=== PATIENT | female | born 1935 | race Caucasian/White ===

== ENCOUNTER 2024-08-17 08:47 | Emergency (ER) | payer MEDICARE, MEDICAID, SELFPAY ==
[2024-08-17 08:51] VITALS: BP 183/72; PULSE 64; TEMP 36.7; O2SAT 99; BMI 25.7
[2024-08-17] MEDS: HYDROCODONE/ACET 5-325 MG TABLET 1 TAB PO (09:08)
[2024-08-17] MEDS: CYCLOBENZAPRINE HCL 10 MG TABLET PO (09:09)
--- NOTE | 2024-08-17 10:46 | ED.BACK1 ---
HPI HPI - Back Pain/Injury General Chief Complaint: Back Pain/Injury Stated Complaint: BACK PAIN Time Seen by Provider: 08/17/24 08:49 Source: patient and EMR Mode of arrival: ambulance History of Present Illness HPI Narrative: Patient presents to ED complaining of low back pain. She complains of left lumbar pain which is a chronic issue for her but recently has flared up. She has been to pain management as well as a back surgeon. She said she was doing okay but a couple of nights ago he tried to turn over in bed and she felt immediate pain. Patient states the pain is going into the left leg. No numbness or weakness. No nausea vomiting no fevers. She denies any loss of bowel or bladder habits. She states she had tramadol at the care facility but it made her nauseated so she could not take it. She did try some Aleve but it was not helping. She has been icing and using heat with little relief. She is alert and oriented and was able to get herself in and out of the bed. Related Data Home Medications ?Medication ?Instructions ?Recorded ?Confirmed Lactobacillus acidophilus 10 100 mmu cells PO DAILY 08/17/24 08/17/24 billion cell capsule (Revitaflor) ascorbic acid (vitamin C) 1,000 mg 1,000 mg PO DAILY 08/17/24 08/17/24 tablet,extended release (C Complex) calcium 500 mg tablet 500 mg PO DAILY 08/17/24 08/17/24 calcium 600 mg (as 1 tab PO DAILY 08/17/24 08/17/24 carbonate)-vitamin D3 5 mcg (200 unit) tablet carvedilol 12.5 mg tablet (Coreg) 12.5 mg PO BID 08/17/24 08/17/24 cholecalciferol (vitamin D3) 25 1,000 unit PO DAILY 08/17/24 08/17/24 mcg (1,000 unit) capsule (Vitamin D3) hydrochlorothiazide 25 mg tablet 25 mg PO DAILY 08/17/24 08/17/24 hydroxychloroquine 200 mg tablet 200 mg PO DAILY 08/17/24 08/17/24 levothyroxine 75 mcg tablet 75 mcg PO DAILY 08/17/24 08/17/24 (Euthyrox) linaclotide 72 mcg capsule 72 mcg PO DAILY 08/17/24 08/17/24 (Linzess) polyethylene glycol 3350 17 gram 17 g PO DAILY 08/17/24 08/17/24 oral powder packet (ClearLax) potassium 20 mg chewable tablet 20 mg PO DAILY 08/17/24 08/17/24 prednisone 20 mg tablet 10 mg PO DAILY 08/17/24 08/17/24 sennosides 8.6 mg tablet (senna) 8.6 mg PO DAILY 08/17/24 08/17/24 sertraline 25 mg tablet (Zoloft) 25 mg PO DAILY 08/17/24 08/17/24 tizanidine 4 mg tablet 4 mg PO Q8H PRN muscle spasticity 08/17/24 08/17/24 Previous Rx's ?Medication ?Instructions ?Recorded cyclobenzaprine 10 mg tablet 10 mg PO TID PRN back pain #20 tabs 08/17/24 hydrocodone 5 mg-acetaminophen 325 1 tab PO Q6H PRN pain #14 tabs 08/17/24 mg tablet Allergies Allergy/AdvReac Type Severity Reaction Status Date / Time bupropion (From Wellbutrin) Allergy Hallucinati Verified 08/17/24 09:08 ng Penicillins Allergy Hives Verified 08/17/24 09:08 pentazocine (From Talwin) Allergy Unknown Verified 08/17/24 09:08 Opioid HPI Opioid Management Most Recent Opioid Data: Last ED Pain Assessment 08/17/24 09:55 Review of Systems ROS Status of ROS 10 or more systems reviewed and unremarkable except as noted in history and below [facility] Medical History (Updated 08/17/24 @ 10:28 by Monica Recio DO) Hypokalemia ?E87.6 - Hypokalemia (ICD-10) Other abnormalities of gait and mobility ?R26.89 - Other abnormalities of gait and mobility (ICD-10) Muscle spasm of back ?M62.830 - Muscle spasm of back (ICD-10) Hyperlipemia ?E78.5 - Hyperlipidemia, unspecified (ICD-10) Nutritional deficiency ?E63.9 - Nutritional deficiency, unspecified (ICD-10) Major depression ?F32.9 - Major depressive disorder, single episode, unspecified (ICD-10) Hypothyroid ?E03.9 - Hypothyroidism, unspecified (ICD-10) Constipation ?K59.00 - Constipation, unspecified (ICD-10) Chronic kidney disease ?N18.9 - Chronic kidney disease, unspecified (ICD-10) 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 Respiratory: Lungs CTA, respirations non labored. Extremities: no deformity, no trauma. Neurological: oriented x 4, LOC appropriate for age. Tenderness to palpation in the left lumbar sacral area. Normal distal pulses and sensation normal motor Constitutional Vital Signs, click to edit/add: Last Vital Signs Temp 98.1 F 08/17/24 08:51 Pulse 64 08/17/24 08:51 Resp 18 08/17/24 08:51 BP 183/72 H 08/17/24 08:51 Pulse Ox 99 08/17/24 08:51 O2 Del Method Room Air 08/17/24 08:51 Course Vital Signs Vital signs: Vital Signs Temperature 98.1 F 08/17/24 08:51 Pulse Rate 64 08/17/24 08:51 Respiratory Rate 18 08/17/24 08:51 Blood Pressure 183/72 H 08/17/24 08:51 Pulse Oximetry 99 08/17/24 08:51 Oxygen Delivery Method Room Air 08/17/24 08:51 Temperature 98.1 F 08/17/24 08:51 Pulse Rate 64 08/17/24 08:51 Respiratory Rate 18 08/17/24 08:51 Blood Pressure 183/72 H 08/17/24 08:51 Pulse Oximetry 99 08/17/24 08:51 Oxygen Delivery Method Room Air 08/17/24 08:51 MDM - Back Pain/Injury MDM Narrative Medical decision making narrative: Patient was feeling better after the [place] and Flexeril. She was able to ambulate with her walker. Patient will be sent home and was instructed to follow-up with her pain management as well as back doctor. Return to ED if worsening symptoms otherwise follow-up as directed. Patient is comfortable care plan for home. Prescription for [place] and Flexeril were sent in for her Differential Diagnosis Differential diagnosis: Likely lumbar radiculopathy, sciatica and strain of lumbar region Discharge Plan Discharge Chief Complaint: Back Pain/Injury Clinical Impression: Strain of lumbar region Patient Disposition: Home, Self-Care Time of Disposition Decision: 10:28 Condition: Good Mode of Transportation: Private Vehicle Prescriptions / Home Meds: New cyclobenzaprine 10 mg tablet 10 mg PO TID PRN (Reason: back pain) Qty: 20 0RF hydrocodone-acetaminophen 5-325 mg tablet 1 tab PO Q6H PRN (Reason: pain) Qty: 14 0RF No Action prednisone 20 mg tablet 10 mg PO DAILY Revitaflor 10 billion cell capsule 100 mmu cells PO DAILY sennosides [senna] 8.6 mg tablet 8.6 mg PO DAILY tizanidine 4 mg tablet 4 mg PO Q8H PRN (Reason: muscle spasticity) C Complex 1,000 mg tablet extended release 1,000 mg PO DAILY cholecalciferol (vitamin D3) [Vitamin D3] 25 mcg (1,000 unit) capsule 1,000 unit PO DAILY sertraline [Zoloft] 25 mg tablet 25 mg PO DAILY calcium carbonate-vitamin D3 600 mg-5 mcg (200 unit) tablet 1 tab PO DAILY carvedilol [Coreg] 12.5 mg tablet 12.5 mg PO BID Rx Instructions: must administer with a meal/food hydrochlorothiazide 25 mg tablet 25 mg PO DAILY hydroxychloroquine 200 mg tablet 200 mg PO DAILY levothyroxine [Euthyrox] 75 mcg tablet 75 mcg PO DAILY Linzess 72 mcg capsule 72 mcg PO DAILY polyethylene glycol 3350 [ClearLax] 17 gram powder in packet 17 g PO DAILY calcium 500 mg tablet 500 mg PO DAILY potassium 20 mg tablet,chewable 20 mg PO DAILY Print Language: [place] Instructions: Back Pain (ED) Referrals: Aleksandra Fontaine NP [Primary Care Provider] - 1 week
== END 2024-08-17 11:09 | disposition home or self-care (01) ==
PROVIDERS: Emergency Provider Emergency Medicine; PCP Nurse Practitioner Family
DX: S39.012A Strain of muscle, fascia and tendon of lower back, initial encounter (principal); X58.XXXA Exposure to other specified factors, initial encounter
CPT/HCPCS: 99282

== ENCOUNTER 2024-08-21 04:47 | Emergency (ER) | payer MEDICARE, MEDICAID, SELFPAY ==
[2024-08-21] VITALS (39 sets, daily range): BP systolic 82–129; BP diastolic 48–67; PULSE 75–90; TEMP 37.1; O2SAT 83–98
--- NOTE | 2024-08-21 04:48 | CT_ITS ---
[address] [address] Patient Name: DERICK ALCANTARA MRN: [id number] date: 1935 Sex: F Assigned Patient Location: ER Current Patient Location: ER Accession/Order Number: [id number] Exam Date: 08/21/2024 05:35 Report Date: 08/21/2024 06:01 At the request of: KWESI CALI Procedure: CT abdomen pelvis w con EXAMINATION: CT abdomen pelvis w con HISTORY: abdominal pain COMPARISON: No relevant comparison available. TECHNIQUE: CT images were created with IV contrast. Axial, Coronal, and Sagittal images. Dose reduction techniques were achieved by using automated exposure control and/or adjustment of mA and/or kV according to patient size and/or use of iterative reconstruction technique. FINDINGS: LUNG BASES: Mild dependent atelectasis. LIVER: No enlargement, atrophy, abnormal density, or significant focal lesion. BILIARY: Surgical clips from cholecystectomy PANCREAS: Diffuse fatty atrophy SPLEEN: No enlargement or focal lesion. ADRENALS: No mass or enlargement. KIDNEYS: No mass, obstruction, or calcification. BOWEL/MESENTERY: Small amount of free scattered intraperitoneal air suggesting a bowel perforation. Moderate to extensive colonic diverticulosis without definite evidence of acute diverticulitis. There is wall thickening of multiple small bowel loops with hyperemia. Small amount of free pelvic fluid AORTA/VASCULAR: No aortic aneurysm. Mild calcific atherosclerosis RETROPERITONEUM: No mass or adenopathy. LYMPH NODES: No adenopathy. URINARY BLADDER: No visible focal wall thickening, lesion, or calculus. PELVIC ORGANS: Hysterectomy ABDOMINAL WALL: No mass or hernia. BONES: No bony lesion or fracture. Lumbosacral fusion with moderate diffuse degenerative changes OTHER: Negative. CT/CT abdomen pelvis w con IMPRESSION: Small amount of free intraperitoneal air. Consider a bowel perforation. The location is unknown Inflammatory changes consistent with small bowel enteritis Electronically authenticated by: ECHO PATEL Date: 08/21/2024 06:01
--- NOTE | 2024-08-21 04:49 | ECG_ITS ---
[facility] Test Date: 2024-08-21 Pat Name: DERICK ALCANTARA Department: Room: - Gender: Female [employer]: : 1935 Requested By: Order Number: [id number] Reading MD: DERIK BOWLING Measurements Intervals [place] Rate: 84 P: 58 AL: 156 QRS: -51 QRSD: 98 T: 69 QT: 380 QTc: 421 Interpretive Statements 1100 Sinus rhythm 2630 Left anterior fascicular block 9150 abnormal ECG No previous ECG available for comparison Electronically Signed On 08-21-2024 8:09:05 EST by DERIK BOWLING
--- OUTSIDE RECORDS SUMMARY | 2024-08-21 04:53 | XMS_ITS | CCD ---
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 Name Role Phone SAM MACHADO Attending Unavailable FAN ELLIOTT Primary Care Unavailable Fan Elliott Unavailable Unavailable Unavailable Peterson Mejia Unavailable Abhijeet Guillen Unavailable Peewee Mondragon Unavailable DO Fan Elliott Primary Care Provider AKHIL Mcgraw Emergency Provider Al MD Jony Irizarry Admit Provider MD Peterson Mejia Other Provider RADHA Jane Other Provider MD Peewee Mondragon Other Provider MD Yoav Hsu Attending Provider SHEY Lee Attending Provider AKHIL Mcgraw Referring Provider Cece Anguiano II Unavailable DO Fan Elliott Primary Care Provider MD Cece Anguiano II Attending Provider DO Fan Elliott Primary Care Provider SHEY Lee Attending Provider AKHIL Mcgraw Referring Provider [phone] Sam Machado Referring Delia vailable Fan Elliott Primary Care Unavailable Mandeep Dr. Sam Hammonds Attending Delia vailable Machado, Dr. Sam Hammonds Referring Delia vailable Fan Elliott Primary Care Unavailable Mandeep, Dr. Sam Hammonds Attending Delia MD Sam Soares Attending Provider SHEY Lee Attending Provider AKHIL Mcgraw Referring Provider SHEY Lee Attending Provider AKHIL Mcgraw Referring Provider Sakshi Ojeda Unavailable DO Fan Elliott Primary Care Provider MD Cece Anguiano II Attending Provider MD Sam Machado Attending Provider SHEY Lee Attending Provider AKHIL Mcgraw Referring Provider DO Fan Elliott Attending Provider DO Fan Elliott Primary Care Provider AKHIL Whitaker Emergency Provider [phone] DO Fan Elliott Attending Provider DO Fan Elliott Primary Care Provider DO Peewee Jackson Emergency Provider UnaiaSAM Ferguson Attending Unavailable FAN ELLIOTT Primary Care Unavailable DO Fan Elliott Primary Care Provider DO Peewee Jackson Emergency Provider Unavai DO Fan Malhotra Attending Provider [phone] MD Sakshi Ojeda Referring Provider [phone] GIL Hill Primary Care Provider MD Sakshi Ojeda Attending Provider [phone] Fan Elliott DO Unavailable Fan Naidu DO Unavailable [phone] Karen Wellington Primary Care Provider Sakshi Ojeda MD Attending Provider Rusty, Sakshi Attending Unavailable Karen Hill Primary Care Unavailable Rusty, Sakshi Admitting Unavailable Karen Hill Primary Care Unavailable Rusty, Sakshi Admitting Unavailable Rusty, Sakshi Attending Unavailable GRANT JANE Attending Unavailable PEEWEE GRESHAM Attending Unavailable PEEWEE GRESHAM Referring Unavailable JR. ALYCIA, MARIE Hong Attending UnavailSILVESTRE Cotto Attending Unavailable FAN NAIDU Attending Unavailable FAN ELLIOTT Referring Unavailable YARELIS ECHEVERRIA Attending Unavailable JR. ALYCIA, MARIE Hong Attending UnavailIFEOMA Sebastian Attending Unavailable PEEWEE GRESHAM Attending Unavailable PEEWEE GRESHAM Attending Unavailable Fan Elliott DO Primary Care Provider [phone] PEEWEE GRESHAM Attending Unavailable PEEWEE GRESHAM Referring Unavailable FAN ELLIOTT Primary Care Unavailable YARELIS RODRIGUEZ Attending Unavailable KAREN HILL Primary Care Unavailable CHARLOTTE BARNEY Attending Unavailable CHARLOTTE BARNEY Referring Unavailable KAREN HILL Primary Care Unavailable MARINE MARY Attending Unavailable KAREN HILL Referring Unavailable KAREN HILL Primary Care Unavailable MARINE MARY Attending Unavailable MARINE MARY Referring Unavailable KAREN HILL Primary Care Unavailable FAN ELLIOTT Referring Unavailable FAN ELLIOTT Primary Care Unavailable Allergies Allergy Classification Reported Allergen(s) Allergy Type Date of Onset Reaction(s) Facility (20 sources) Penicillins; Translations: [Penicillins] Allergy to drug (finding) 03-20-20 [facility] Comment on above: Tolerating meropenem therapy during 01-19-22 admission (3 sources) Pentazocine; Translations: [Talwin NX TABS] Drug Allergy -[facility] 250 DO Work Phone: (7 sources) Acetaminophen / HYDROcodone Drug Allergy Unknown [facility] [employer] Other (7 sources) Acetaminophen / oxyCODONE Drug Allergy Unknown [facility] [employer] Other (9 sources) Penicillin V Drug Allergy 11-20-20 23 Unknown, Unknown Reaction [facility] (7 sources) Penicillins (Antibiotic) Propensity to adverse reactions Unknown [facility] [employer] Other (9 sources) Pentazocine Drug Allergy Unknown [employer] Other (20 sources) buPROPion; Translations: [bupropion] Drug Allergy 03-20-20 22 Hallucinating [facility] (20 sources) Pentazocine; Translations: [pentazocine] Drug Allergy 03-20-20 Unknown Reaction [facility] (1 source) PENTAZOCINE-NALO XONE; Translations: [PENTAZOCINE-NAL OXONE] Propensity to adverse reactions to drug (disorder) 07-06-20 [facility] 3 Repository (3 sources) Acetaminophen; Translations: [acetaminophen] Drug Allergy 07-20-20 23 Unknown Reaction [facility] (3 sources) HYDROcodone; Translations: [hydrocodone] Drug Allergy 07-20-20 Unknown Reaction [facility] (3 sources) oxyCODONE; Translations: [oxycodone] Drug Allergy 07-20-20 23 Unknown Reaction [facility] (12 sources) Penicillins Drug Allergy 01-01-20 23 [facility] (12 sources) Sulfacetamide Drug Allergy 01-01-20 23 [facility] (12 sources) Pentazocine-Nalo xone Hcl Drug Allergy 07-06-20 23 Unknown [facility] Work Phone: (1 source) Penicillin Drug Allergy 07-14-20 [facility] Repository (1 source) Penicillins Drug allergy (disorder) 07-14-20 [facility] Repository Medications Current Medications Medication Drug Class(es) Dates Sig (Normalized) Sig (Original) [id number] 200 actuat albuterol 0.09 mg/actuat metered dose inhaler (12 sources) beta2-Adrenergic Agonist Start: 10-02-2022 albuterol HFA 90 mcg/act inhaler Inhale 1 puff if needed. 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 90 tablet 1 06/10/2023 Active Start: 09-07-2017 End: 06-18-2023 take 1 tablet by mouth once daily Ascorbic Acid (Vitamin C) (Vitamin C) 500 mg Tablet Discontinued 500 MG PO daily September 07, 2017 12:00am June 18, 2023 8:11pm bacillus coagulans [id number] unt / inulin 250 mg oral capsule (11 sources) Start: 06-10-2023 take 1 capsule by mouth in the morning Bacillus Coagulans-Inulin (Probiotic) 1-250 BILLION-MG capsule Indications: Diverticulosis of intestine, part unspecified, without perforation or abscess without bleeding Take 1 capsule by mouth in the morning. 90 capsule 1 06/10/2023 Active Calcium 1200 1122-1648 MG-UNIT (2 sources) take 1 tablet by mouth once daily Calcium 1200 2883-1510 MG-UNIT 1 tablet Orally Once a day Active calcium ascorbate 500 mg oral tablet (1 source) Start: 07-14-2024 take 1 tablet by mouth once daily Ascorbate Calcium (Vitamin C) 500 mg tablet Active 500 MG PO Daily July 14, 2024 12:00am calcium carbonate 1250 mg oral tablet (20 sources) Start: 07-14-2024 take 1 tablet by mouth once daily Calcium Carbonate (Oyster Shell Calcium) 500 mg calcium (1,250 mg) tablet Active 500 MG PO Daily July 14, 2024 12:00am Start: 06-10-2023 take 1 tablet by liz th once daily calcium carbonate (Os-Clyde) 1250 (500 Ca) MG tablet Indications: Other disorders of bone development and growth, multiple sites Take 1 tablet (1,250 mg) by mouth 1 (one) time each day at the same time. 90 tablet 1 06/10/2023 Active Start: 09-07-2017 Calcium Carbon ate (Calcium 500) 500 mg calcium (1,250 mg) Tablet Active 1200 MG PO daily September 07, 2017 12:00am Start: 09-07-2017 take 1 tablet by liz th once daily Calcium Carbonate (Calcium 500) 500 mg calcium (1,250 mg) Tablet Active 500 MG PO daily September 07, 2017 12:00am carvedilol 6.25 mg oral tablet (20 sources) alpha-Adrenergic Cheryl, beta-Adrenergic Cheryl Start: 07-14-2024 take 2 tablets by mouth twice daily Carvedilol 6.25 mg tablet Active 12.5 MG PO Twice daily July 14, 2024 11:19am Start: 06-18-2021 End: 07-14-2024 take 1 tablet by mouth in the morning, then take 2 tablets by mouth once daily in the evening carvedilol (Coreg) 6.25 MG tablet Indications: Atherosclerosis of aorta (CMS/HCC) , Primary hypertension (CMS/HCC) 1 po in am and 2 po in the evening daily 270 tablet 3 10/28/2023 Active Start: 06-18-2021 take 1 tablet by liz th in the morning, then take 2 tablets by mouth in the evening Carvedilol 6.25 MG Oral Tablet Take one tablet in the morning and 2 tablets in the evening Quantity: 0 Refills: 0 Ordered: 18-Jun-2021 DO Start : 18-Jun-2021 Active Start: 06-12-2021 Carvedilol 12. 5 MG Oral Tablet Quantity: 14 Refills: 0 Ordered: 12-Jun-2021 DO Start : 12-Jun-2021 Complete Start: 09-07-2017 End: 09-30-2018 take 2 tablets by mouth once daily at bedtime Carvedilol 6.25 mg Tablet Discontinued 12.5 MG PO Daily at bedtime September 07, 2017 12:00am September 30, 2018 3:03pm Start: 09-07-2017 End: 01-17-2022 take 1 tablet by mouth three times daily Carvedilol 6.25 mg Tablet Discontinued 6.25 MG PO Three times daily September 07, 2017 12:00am January 17, 2022 10:41pm Start: 09-07-2017 End: 09-30-2018 take 12.5 mg by mouth once daily at bedtime Carvedilol Discontinued 12.5 MG PO Daily at bedtime September 07, 2017 12:00am September 30, 2018 3:03pm Carvedilol Activ e cholecalciferol 0.025 mg oral tablet (20 sources) Vitamin D Start: 06-10-2023 take 1 tablet by mouth in the morning cholecalciferol (Vitamin D-3) 100 MCG (4000 UT) tablet Indications: Osteoporosis Take 1 tablet (100 mcg) by mouth in the morning. 90 tablet 1 06/10/2023 Active Start: 09-07-2017 take 1 tablet by liz th once daily in the morning cholecalciferol (Vitamin D3) 25 MCG (1000 UT) tablet Indications: Vitamin D deficiency TAKE 1 TABLET BY MOUTH EVERY MORNING 30 tablet 4 07/10/2024 Active take 1 tablet by liz th once daily Cholecalciferol 25 MCG (1000 UT) 1 tablet Orally Once a day Active take 1 capsule by mo uth once daily Cholecalciferol 25 MCG (1000 UT) 1 capsule Orally Once a day Active codeine phosphate 2 mg/ml / guaiFENesin 20 mg/ml oral solution (12 sources) Opioid Agonist Start: 09-26-2022 take 10 mL by mouth every six hours guaiFENesin-codeine (Robitussin-AC) 100-10 MG/5ML syrup Take 10 mL by mouth every 6 (six) hours. 09/26/2022 Active ezetimibe 10 mg oral tablet (20 sources) Dietary Cholesterol Absorption Inhibitor Start: 09-07-2017 End: 07-14-2024 take 1 tablet by mouth once daily ezetimibe (Zetia) 10 MG tablet Indications: Atherosclerosis of aorta (CMS/HCC) TAKE 1 TABLET BY MOUTH DAILY AT THE SAME TIME EVERY DAY 90 tablet 3 11/03/2023 Active furosemide 20 mg oral tablet (20 sources) Loop Diuretic Start: 11-19-2022 End: 07-14-2024 take 1 tablet by mouth in the morning furosemide (Lasix) 20 MG tablet Indications: Primary hypertension (CMS/HCC) Take 1 tablet (20 mg) by mouth in the morning. 90 tablet 3 04/10/2023 Active Start: 05-24-2021 End: 01-21-2022 take 1 tablet by mouth once daily in the morning Furosemide 20 mg tablet Discontinued 20 MG PO Every morning May 23, 2021 11:00pm January 21, 2022 9:36am take 1 tablet by liz th every six hours Furosemide 20 MG 1 tablet Orally qid Active take 1 tablet by liz th every other day Furosemide 20 MG Oral Tablet TAKE 1 TABLET EVERY OTHER DAY Quantity: 0 Refills: 0 Ordered: 26-Jun-2022 DO Active 12 hr guaiFENesin 600 mg extended release oral tablet (12 sources) Start: 10-02-2022 guaiFENesin (Mucinex) 600 MG 12 hr tablet Take 600 mg by mouth every 12 (twelve) hours. 10/02/2022 Active hydroCHLOROthiazide 25 mg oral tablet (20 sources) Thiazide Diuretic Start: 03-05-2022 take 1 tablet by mouth once daily hydroCHLOROthiazide (HYDRODiuril) 25 MG tablet Indications: Edema, unspecified type Take 1 tablet (25 mg) by mouth Daily 90 tablet 3 12/14/2023 Active Start: 09-07-2017 End: 05-27-2021 take 1 tablet by mouth once daily Hydrochlorothiazide 25 mg Tablet Discontinued 25 MG PO daily September 07, 2017 12:00am May 27, 2021 11:43am hydroCHLOROthiaz erum Active hydroxychloroquine sulfate 200 mg oral tablet (20 sources) Antimalarial, Antirheumatic Agent Start: 09-07-2017 take 1 tablet by mouth once daily Hydroxychloroquine 200 mg Tablet Active 200 MG PO daily September 07, 2017 12:00am ibuprofen 200 mg oral tablet (12 sources) Nonsteroidal Anti-inflammatory Drug take 1 tablet by mouth in the morning ibuprofen 200 MG tablet Take 200 mg by mouth in the morning and 200 mg before bedtime. Active Lactobacillus Combination No.4 (Probiotic) 3 billion cell Capsule (16 sources) Start: 09-07-2017 Lactobacillus Combination No.4 (Probiotic) 3 billion cell Capsule Active 1 CAP PO daily September 07, 2017 12:00am Start: 09-07-2017 Lactobacillus Combination No.4 (Probiotic) 3 billion cell Capsule Active 1 CAP PO daily September 07, 2017 1:00am levothyroxine sodium 0.075 mg oral tablet (20 sources) l-Thyroxine Start: 06-06-2021 Levothyroxine Sodium 75 MCG Oral Tablet Quantity: 90 Refills: 0 Ordered: 06-Jun-2021 DO Start : 06-Jun-2021 Active Start: 09-07-2017 take 1 tablet by liz th once daily levothyroxine (Synthroid, Levoxyl) 75 MCG tablet Indications: Hypothyroidism, unspecified type (CMS/HCC) TAKE 1 TABLET BY MOUTH DAILY AT THE SAME TIME EVERY DAY 90 tablet 1 10/06/2023 Active take 1 tablet by liz th once daily in the morning Levothyroxine Sodium 75 MCG 1 tablet in the morning on an empty stomach Orally Once a day Active magnesium oxide 500 mg oral tablet (15 sources) Start: 06-10-2023 take 1 tablet by mouth in the morning Magnesium Oxide, Laxative, 500 MG tablet Indications: Constipation Take 1 tablet by mouth in the morning. 90 tablet 1 06/10/2023 Active take 1 tablet by mouth twice wes ly Magnesium Oxide (Laxative) 500 MG 1 TABLET Orally TWICE A DAY Active Magnesium Oxide Active meclizine hydrochloride 25 mg oral tablet (17 sources) Antiemetic Start: 06-19-2023 End: 07-14-2024 take 1 tablet by mouth three times daily as needed for dizziness meclizine (Antivert) 25 MG tablet Take 25 mg by mouth 3 (three) times a day as needed for dizziness. 06/19/2023 Active naproxen sodium 220 mg oral tablet (12 sources) Nonsteroidal Anti-inflammatory Drug take 1 tablet by mouth every twelve hours naproxen sodium (Aleve) 220 MG tablet Take 220 mg by mouth every 12 (twelve) hours. Active nystatin 100 unt/mg topical powder (12 sources) Polyene Antifungal Start: 02-04-2022 nystatin (Mycostatin) 681986 UNIT/GM powder Apply 1 application topically every 12 (twelve) hours. 02/04/2022 Active Oyster Shell 500 MG (1 source) take 1 tablet by mouth once daily at mealtime Oyster Shell 500 MG 1 tablet with food Orally ONCE A DAY Active potassium chloride 20 meq extended release oral tablet (1 source) Start: 07-20-2023 take 1 tablet by mouth every twenty-four hours Potassium Chloride ER 20 MEQ 1 tablet with food Orally Once a day for 90 days Jul, Active Potassium Chloride 20 mEq tablet,ER particles/crystals (1 source) Start: 07-14-2024 Potassium Chloride 20 mEq tablet,ER particles/crystals Active 20 MEQ PO July 14, 2024 12:00am predniSONE 20 mg oral tablet (20 sources) Start: 08-10-2024 End: 08-19-2024 take 2 tablets by mouth once daily, then take 1 tablet by mouth once daily at mealtime predniSONE (Deltasone) 20 MG tablet Indications: Lumbar back pain with radiculopathy affecting left lower extremity , Sacroiliac joint pain Take 2 tablets (40 mg) by mouth Daily for 5 days, THEN 1 tablet (20 mg) Daily for 5 days. Take with food. 15 tablet 08/10/2024 08/19/2024 Active Start: 06-12-2021 predniSONE 5 M G Oral Tablet Quantity: 14 Refills: 0 Ordered: 12-Jun-2021 DO Start : 12-Jun-2021 Complete Start: 05-22-2021 End: 01-17-2022 take 1 tablet by mouth once daily Prednisone 5 mg tablet Discontinued 5 MG PO Daily May 21, 2021 11:00pm January 17, 2022 10:41pm Start: 01-30-2021 predniSONE 20 MG Oral Tablet Quantity: 10 Refills: 0 Ordered: 30-Jan-2021 DO Start : 30-Jan-2021 Complete Probiotic (7 sources) Probiotic Active Sennosides (Senna) 8.6 mg tablet (1 source) Start: 4 Sennosides (Senna) 8.6 mg tablet Active MG PO July 14, 2024 12:00am sertraline 25 mg oral tablet (13 sources) Serotonin Reuptake Inhibitor Start: 4 sertraline (Zoloft) 25 MG tablet 12/18/2023 Active tiZANidine 4 mg oral capsule (1 source) Central alpha-2 Adrenergic Agonist Start: 4 take 1 capsule by mouth once daily at bedtime as needed Tizanidine 4 mg capsule Active 4 MG PO Daily at bedtime as needed July 14, 2024 12:00am traMADol hydrochloride 50 mg oral tablet (7 sources) Opioid Agonist Start: 4 End: 5 take 1 tablet by mouth every six hours as needed for pain and pain and pain traMADol (Ultram) 50 MG tablet Indications: Pain aggravated by physical activity Take 1 tablet (50 mg) by mouth every 6 (six) hours if needed for severe pain 120 tablet 08/04/2024 09/03/2024 Active Start: 12-31-2020 traMADol HCl - 50 MG Oral Tablet Quantity: 28 Refills: 0 Ordered: 31-Dec-2020 DO Start : 31-Dec-2020 Complete traZODone hydrochloride 50 mg oral tablet (12 sources) Serotonin Reuptake Inhibitor Start: 09-23-2023 traZODone (Desyrel) 50 MG tablet Take 25 mg by mouth at bedtime 09/23/2023 Active Completed/Discontinued Medications Medication Drug Class(es) Dates Sig (Normalized) Sig (Original) acetaminophen 325 mg / HYDROcodone bitartrate 5 mg oral tablet (20 sources) Opioid Agonist Start: 03-05-2022 End: 06-19-2022 take 1 tablet by mouth every six hours as needed for pain Hydrocodone-Acetami nophen 5-325 mg tablet Discontinued 1 TAB PO Q6H as needed for Pain March 04, 2022 11:00pm June 19, 2022 2:01pm Start: 09-07-2017 End: 09-30-2018 take 1 tablet by mouth every four to six hours as needed for pain Hydrocodone-Acetaminophen ([place]) 5-325 mg Tablet Discontinued 1 TAB PO EVERY 4-6 HOURS as needed for Pain September 07, 2017 12:00am September 30, 2018 3:04pm aspirin 81 mg delayed release oral tablet (16 sources) Platelet Aggregation Inhibitor, Nonsteroidal Anti-inflammatory Drug Start: 09-07-2017 End: 05-22-2021 take 2 tablets by mouth once daily Aspirin 81 mg Tablet,Delayed Release (Dr/Ec) Discontinued 162 MG PO daily September 07, 2017 12:00am May 22, 2021 8:22am Start: 09-07-2017 End: 05-22-2021 take 162 mg by mouth once daily Aspirin Discontinued 162 MG PO daily September 07, 2017 12:00am May 22, 2021 8:22am bifidobacterium animalis [id number] unt / lactobacillus acidophilus [id number] unt oral capsule (1 source) Probiotic CAPS U SE DIRECTED. Quantity: 0 Refills: 0 Ordered: 26-Jun-2022 DO Active 24 hr buPROPion hydrochloride 150 mg extended release oral tablet (18 sources) Aminoketone Start: 06-02-2021 take 1 tablet by mouth every twenty-four hours buPROPion HCl ER (XL) 150 MG Oral Tablet Extended Release 24 Hour Quantity: 30 Refills: 0 Ordered: 02-Jun-2021 DO Start : 02-Jun-2021 Complete Start: 05-22-2021 End: 01-21-2022 take 1 tablet by mouth once daily Bupropion Hcl 150 mg tablet extended release 24 hr Discontinued 150 MG PO Daily May 21, 2021 11:00pm January 21, 2022 7:18am Calcium (8 sources) Phosphate Binder, Calcium take 2 tablets by mouth once daily [facility] Calcium 600 MG Oral Tablet TAKE 2 TABLET Daily Quantity: 0 Refills: 0 Ordered: 26-Jun-2022 DO Active Calcium + D Acti ve Calcium TABS wes ly Quantity: 0 Refills: 0 Ordered: 27-Jun-2021 DO Active clindamycin 300 mg oral capsule (2 sources) Lincosamide Antibacterial Start: 09-16-2020 Clindamycin HCl - 30 0 MG Oral Capsule Quantity: 6 Refills: 0 Ordered: 16-Sep-2020 DO Start : 16-Sep-2020 Complete cyclobenzaprine hydrochloride 5 mg oral tablet (20 sources) Muscle Relaxant Start: 06-12-2021 Cyclobenzaprin e HCl - 5 MG Oral Tablet Quantity: 14 Refills: 0 Ordered: 12-Jun-2021 DO Start : 12-Jun-2021 Active Start: 05-22-2021 End: 06-18-2023 take 1 tablet by mouth at bedtime Cyclobenzaprine 5 mg tablet Discontinued 5 MG PO Bedtime May 21, 2021 11:00pm June 18, 2023 8:11pm take 1 tablet by liz th once daily at bedtime as needed Flexeril 5 MG 1 tablet at bedtime as needed Orally Once a day Active docosahexaenoic acid 120 mg / eicosapentaenoic acid 180 mg oral capsule (2 sources) take 1 capsule by mouth once daily Fish Oil 1000 MG Oral Capsule 1 daily Quantity: 0 Refills: 0 Ordered: 27-Jun-2021 DO Active doxycycline hyclate 100 mg oral capsule (20 sources) Tetracycline- class Drug Start: End: take 1 capsule by mouth twice daily Doxycycline Hyclate 100 mg capsule Discontinued 100 MG PO Twice daily 80 40 January 20, 2022 11:00pm November 19, 2022 1:35pm Fish Oils (6 sources) Fish Oil Not-Ralf ing Fish Oil Active gabapentin 300 mg oral capsule (18 sources) Anti-epileptic Agent Start: 05-24-2021 End: 01-17-2022 take 1 capsule by mouth three times daily Gabapentin 300 mg capsule Discontinued 300 MG PO Three times daily May 23, 2021 11:00pm January 17, 2022 10:46pm Start: 04-11-2021 Gabapentin 300 MG Oral Capsule Quantity: 270 Refills: 0 Ordered: 11-Apr-2021 DO Start : 11-Apr-2021 Active Magnesium (19 sources) Start: 03-05-2022 End: 07-14-2024 Magnesium 250 mg Tablet Disc ontinued 450 MG PO Daily March 04, 2022 11:00pm July 14, 2024 11:18am Start: 03-05-2022 take 450 mg by mouth once kurt y Magnesium Active 450 MG PO Daily March 04, 2022 11:00pm Start: 03-05-2022 take 450 mg by mouth once kurt y Magnesium Active 450 MG PO Daily March 05, 2022 12:00am Start: 03-05-2022 take 250 mg by mouth once kurt y Magnesium Active 250 MG PO Daily March 04, 2022 11:00pm Start: 03-05-2022 take 250 mg by mouth once kurt y Magnesium Active 250 MG PO Daily March 05, 2022 12:00am take 1 tablet by liz once daily Magnesium 400 MG Oral Tablet 1 daily Quantity: 0 Refills: 0 Ordered: 27-Jun-2021 DO Active meloxicam 15 mg oral tablet (18 sources) Nonsteroidal Anti-inflammatory Drug Start: 06-06-2021 Meloxicam 15 MG Oral Tablet Quantity: 90 Refills: 0 Ordered: 06-Jun-2021 DO Start : 06-Jun-2021 Active Start: 09-30-2018 End: 01-17-2022 take 1 tablet by mouth once daily Meloxicam 7.5 mg Tablet Discontinued 7.5 MG PO Daily September 30, 2018 12:00am January 17, 2022 10:41pm menthol 100 mg/ml topical cream (2 sources) Start: 05-27-2024 End: 06-26-2024 Menthol, Topical Analgesic, (Biofreeze) 10 % cream Indications: Left-sided low back pain with right-sided sciatica, unspecified chronicity Apply 1 Application topically in the morning and 1 Application at noon and 1 Application in the evening and 1 Application before bedtime. 85 g 05/27/2024 06/26/2024 methylPREDNISolone acetate 20 mg/ml injectable suspension (17 sources) Corticosteroid Start: 07-20-2024 End: 07-20-2024 methylPREDNISolone Acetate (DEPO-Medrol) injection 40 mg Start: 07-20-2024 End: 07-20-2024 40 mg, Intra-articular, Once PRN Procedure, Starting on Thu07/20/24 at 1438, For 1 dose Start: 07-14-2024 take 1 tablet by mouth once Me thylprednisolone (Medrol (Marcello)) 4 mg tablets,dose pack Active 0 PO per package directions July 14, 2024 12:00am PO PER PKG DIR Start: 03-14-2024 methylPREDNISo lone (Medrol Dospak) 4 MG tablets Indications: Trochanteric bursitis of left hip Follow schedule on package instructions 21 tablet 03/14/2024 Active [place] 6-Rjy-Yrl-Fish Oil (Fish Oil) 1,000 mg (120 mg-180 mg) Capsule (16 sources) Start: 09-07-2017 End: 06-19-2022 take 1 capsule by mouth once daily [place] 3-Zjy-Hdj-Fish Oil (Fish Oil) 1,000 mg (120 mg-180 mg) Capsule Discontinued 1000 MG PO daily September 07, 2017 12:00am June 19, 2022 2:00pm Start: 09-07-2017 End: 06-19-2022 take 1 capsule by mouth once daily [place] 9-Ppi-Shf-Fish Oil (Fish Oil) 1,000 mg (120 mg-180 mg) Capsule Discontinued 1000 MG PO daily September 07, 2017 1:00am June 19, 2022 3:00pm Start: 09-07-2017 take 1 capsule by [facility] once daily [place] 1-Mhr-Htr-Fish Oil (Fish Oil) 1,000 mg (120 mg-180 mg) Capsule Active 1000 MG PO daily September 07, 2017 1:00am ondansetron 4 mg disintegrating oral tablet (20 sources) Serotonin-3 Receptor Antagonist Start: 10-15-2021 End: 03-06-2022 take 2 tablets by mouth every eight hours as needed for nausea and vomiting Ondansetron 4 mg Tablet,Disintegrating Discontinued 8 MG PO Q8H as needed for nausea and vomiting October 15, 2021 12:00am March 06, 2022 10:01am Start: 10-15-2021 End: 03-06-2022 take 8 mg by mouth every eight hours Ondansetron Discontinued 8 MG PO Q8H October 15, 2021 12:00am March 06, 2022 10:01am Start: 09-07-2017 End: 09-10-2017 take 1 tablet by mouth three times daily as needed for nausea and vomiting Ondansetron (Zofran Odt) 4 mg tablet,disintegrating Discontinued 4 MG PO Three times daily as needed for nausea and vomiting 9 3 September 07, 2017 12:00am September 09, 2017 12:00am September 10, 2017 12:03am pantoprazole 20 mg delayed release oral tablet (16 sources) Proton Pump Inhibitor Start: 10-15-2021 End: 03-06-2022 take 1 tablet by mouth once daily Pantoprazole (Protonix) 20 mg Tablet,Delayed Release (Dr/Ec) Discontinued 20 MG PO Daily October 15, 2021 12:00am March 06, 2022 10:01am polyethylene glycol 3350 00220 mg powder for oral solution (16 sources) Osmotic Laxative Start: 01-18-2022 End: 11-19-2022 Polyethylene Glycol 3350 (Miralax) 17 gram/dose Powder Discontinued 17 GM PO Daily as needed for Constipation January 17, 2022 11:00pm November 19, 2022 1:35pm Vit C-Vit K-Kralfc-Djx-Om-3 (Ocuvite) 792-79-2-150 se-pgkr-xm-mg Capsule (16 sources) Start: 09-07-2017 End: 05-22-2021 take 1 capsule by mouth once daily Vit C-Vit Z-Emaksh-Sji-Om-3 (Ocuvite) 693-46-7-150 qm-dima-nf-mg Capsule Discontinued 1 CAP PO daily September 07, 2017 12:00am May 22, 2021 8:22am Start: 09-07-2017 End: 05-22-2021 take 1 capsule by mouth once daily Vit C-Vit C-Ssedae-Mzo-Om-3 (Ocuvite) 459-29-6-150 ff-lhrk-gd-mg Capsule Discontinued 1 CAP PO daily September 07, 2017 1:00am May 22, 2021 9:22am Vitamin D3 CAPS (3 sources) Vitamin D3 CAPS 1000 mg daily Quantity: 0 Refills: 0 Ordered: 27-Jun-2021 DO Active Problems Active Problems Problem Classification Problem Date Documented Date Episodic/Chronic Acquired foot deformities (12 sources) Hammer toe; Translations: [Other hammer toe(s) (acquired), unspecified foot] Onset: 3 12-31-2022 Chronic Acute and unspecified renal failure (20 sources) Injury of kidney; Translations: [Acute kidney failure, unspecified] 05-22-2021 Episodic Asthma (12 sources) Uncomplicated asthma; Translations: [Unspecified asthma, uncomplicated] Onset: 3 12-31-2022 Chronic Cardiac dysrhythmias (20 sources) Supraventricular tachycardia; Translations: [Atrial premature depolarization] Onset: 9 Chronic Chronic kidney disease (20 sources) Chronic kidney disease stage 3; Translations: [Stage 3 chronic kidney disease] Onset: 3 03-06-2022 Chronic Chronic kidney disease (5 sources) Chronic kidney disease; Translations: [Chronic kidney disease, stage III (moderate)] Onset: 4 Chronic obstructive pulmonary disease and bronchiectasis (12 sources) Chronic obstructive lung disease; Translations: [Chronic obstructive pulmonary disease, unspecified] Onset: 1 02-19-2023 Chronic Deficiency and other anemia (2 sources) Anemia of renal disease; Translations: [Anemia in chronic kidney disease] Chronic Deficiency and other anemia (3 sources) Anemia in chronic kidney disease; Translations: [Anemia in chronic kidney disease] Onset: 4 Chronic Deficiency and other anemia (17 sources) Anemia; Translations: [Anemia, unspecified] 03-06-2022 Episodic Deficiency and other anemia (10 sources) Anemia, unspecified; Translations: [Anemia, unspecified] Onset: 3 03-20-2022 Episodic Disorders of lipid metabolism (20 sources) Hyperlipidemia, unspecified; Translations: [Hyperlipidemia] Onset: 9 Chronic Diverticulosis and diverticulitis (20 sources) Diverticulitis of colon; Translations: [Diverticulitis of large intestine without perforation or abscess without bleeding] Onset: 2 12-31-2022 Chronic E Codes: Fall (17 sources) Fall; Translations: [Unspecified fall, initial encounter] 03-06-2022 Episodic Essential hypertension (18 sources) Essential (primary) hypertension; Translations: [Benign essential hypertension] Onset: 9 Chronic Hypertension with complications and secondary hypertension (7 sources) Chronic kidney disease due to hypertension; Translations: [Hypertensive chronic kidney disease with stage 1 through stage 4 chronic kidney disease, or unspecified chronic kidney disease] Onset: 4 Chronic Infective arthritis and osteomyelitis (except that caused by tuberculosis or sexually transmitted disease) (20 sources) Osteomyelitis of forefoot; Translations: [Osteomyelitis, unspecified] Onset: 3 03-06-2022 Chronic Inflammation; infection of eye (except that caused by tuberculosis or sexually transmitteddisease) (16 sources) Conjunctivitis; Translations: [Unspecified conjunctivitis] 03-06-2022 Episodic Malaise and fatigue (12 sources) Chronic fatigue syndrome; Translations: [Chronic fatigue syndrome] Onset: 9 12-31-2022 Chronic Malaise and fatigue (17 sources) Asthenia; Translations: [Weakness] 05-22-2021 Episodic Mood disorders (20 sources) Major depression, single episode; Translations: [Major depressive disorder, single episode, unspecified] Onset: 1 12-31-2022 Chronic Nausea and vomiting (17 sources) Nausea; Translations: [Nausea and vomiting] Onset: 2 Resolved: 2 Episodic Nutritional deficiencies (1 source) Vitamin D deficiency; Translations: [Vitamin D deficiency, unspecified] 07-10-2024 Chronic Open wounds of head; neck; and trunk (16 sources) Facial laceration ; Translations: [Laceration without foreign body of other part of head, initial encounter] 09-07-2017 Episodic Osteoarthritis (12 sources) Primary osteoarthritis, right shoulder; Translations: [Arthropathy, unspecified, shoulder region] Onset: 3 12-31-2022 Chronic Other connective tissue disease (4 sources) History of right total knee replacement; Translations: [Presence of right artificial knee joint] Chronic Other connective tissue disease (2 sources) Presence of right artificial knee joint Onset: 2 Resolved: 2 Chronic Other connective tissue disease (12 sources) Artificial knee joint present; Translations: [Presence of unspecified artificial knee joint] Onset: 1 02-19-2023 Chronic Other connective tissue disease (16 sources) Pain in toe; Translations: [Pain in right toe(s)] 03-06-2022 Episodic Other connective tissue disease (1 source) Pain in right toe(s); Translations: [Pain in limb] 01-21-2022 Episodic Other connective tissue disease (6 sources) Trochanteric bursitis of left hip; Translations: [Trochanteric bursitis, left hip] 07-20-2024 Episodic Other diseases of kidney and ureters (3 sources) Secondary hyperparathyroidism; Translations: [Secondary hyperparathyroidism of renal origin] 07-14-2024 Chronic Other diseases of kidney and ureters (4 sources) Secondary hyperparathyroidism of renal origin; Translations: [Secondary hyperparathyroidism (of renal origin)] Onset: 4 Chronic Other ear and sense organ disorders (13 sources) Sensorineural hearing loss, bilateral; Translations: [Sensorineural hearing loss, bilateral] Onset: 3 12-31-2022 Chronic Other eye disorders (16 sources) Subconjunctival hemorrhage; Translations: [Conjunctival hemorrhage, unspecified eye] 09-07-2017 Episodic Other nervous system disorders (12 sources) Chronic pain; Translations: [Other chronic pain] Onset: 3 12-31-2022 Chronic Other nervous system disorders (12 sources) Difficulty walking; Translations: [Difficulty in walking, not elsewhere classified] Onset: 3 12-31-2022 Chronic Other nervous system disorders (12 sources) Walking disability; Translations: [Difficulty in walking, not elsewhere classified] Onset: 3 12-31-2022 Chronic Other nervous system disorders (12 sources) Neuropathy; Translations: [Polyneuropathy, unspecified] Onset: 3 12-31-2022 Chronic Other nervous system disorders (12 sources) Cognitive deficit in communication skills; Translations: [Cognitive communication deficit] Onset: 1 02-19-2023 Chronic Other nervous system disorders (12 sources) Abnormal circadian rhythm; Translations: [Circadian rhythm sleep disorder, unspecified type] Onset: 4 01-11-2024 Chronic Other nervous system disorders (1 source) Other specified mononeuropathies of left lower limb; Translations: [Other specified mononeuropathies of left lower limb] Onset: 4 Chronic Other nervous system disorders (1 source) Other chronic pain; Translations: [Other chronic pain] Onset: 4 Chronic Other non-traumatic joint disorders (4 sources) Hip pain; Translations: [Pain in left hip] 07-20-2024 Episodic Other nutritional; endocrine; and metabolic disorders (13 sources) Obesity, unspecified; Translations: [Obesity] Onset: 9 02-19-2023 Chronic Other nutritional; endocrine; and metabolic disorders (2 sources) Obesity; Translations: [Obesity, unspecified] Chronic Other nutritional; endocrine; and metabolic disorders (1 source) Hypomagnesemia; Translations: [Hypomagnesemia] 07-14-2024 Chronic Other nutritional; endocrine; and metabolic disorders (1 source) Hypomagnesemia; Translations: [Disorders of magnesium metabolism] 07-14-2024 Chronic Other nutritional; endocrine; and metabolic disorders (1 source) Overweight in adulthood with body mass index of 25 or more but less than 30; Translations: [Overweight] Episodic Other screening for suspected conditions (not mental disorders or infectious disease) (6 sources) MRI scan abnormal; Translations: [Abnormal findings on diagnostic imaging of other specified body structures] Onset: 2 Resolved: 2 Chronic Other upper respiratory disease (12 sources) Allergic rhinitis; Translations: [Allergic rhinitis, unspecified] Onset: 9 12-31-2022 Chronic Peripheral and visceral atherosclerosis (20 sources) Peripheral vascular disease, unspecified; Translations: [Peripheral arterial disease] Onset: 3 03-06-2022 Chronic Residual codes; unclassified (1 source) Pain; Translations: [Pain, unspecified] 08-04-2024 Episodic Rheumatoid arthritis and related disease (17 sources) Rheumatoid arthritis; Translations: [Rheumatoid arthritis] Onset: 3 Chronic Skin and subcutaneous tissue infections (17 sources) Local infection of the skin and subcutaneous tissue, unspecified; Translations: [Cellulitis of toe] Onset: 2 Resolved: 2 Episodic Skull and face fractures (16 sources) Closed fracture of nasal bones; Translations: [Fracture of nasal bones, initial encounter for closed fracture] 09-07-2017 Episodic Spondylosis; intervertebral disc disorders; other back problems (13 sources) Lumbar radiculopathy; Translations: [Radiculopathy, lumbar region] Onset: 4 07-20-2024 Episodic Superficial injury; contusion (20 sources) Contusion of face; Translations: [Contusion of other part of head, initial encounter] 09-07-2017 Episodic Thyroid disorders (18 sources) Hypothyroidism; Translations: [Unspecified acquired hypothyroidism] Onset: 9 Chronic Unclassified (1 source) Supraventricular tachycardia, unspecified; Translations: [Supraventricular tachycardia, unspecified] Onset: 3 Unclassified (1 source) Adbominal Pain Onset: 4 Unclassified (1 source) Low back pain, unspecified; Translations: [Low back pain, unspecified] Onset: 4 Past or Other Problems Problem Classification Problem Date Documented Da te Episodic/Chronic Abdominal pain (20 sources) Abdominal pain; Translations: [Unspecified abdominal pain] Onset: 4 10-15-2021 Episodic Cardiac dysrhythmias (18 sources) Palpitations; Translations: [Palpitations] Onset: 9 03-04-2024 Episodic Coagulation and hemorrhagic disorders (1 source) Spontaneous ecchymoses; Translations: [Spontaneous ecchymoses] Onset: 4 Episodic Conditions associated with dizziness or vertigo (17 sources) Dizziness; Translations: [Dizziness and giddiness] Onset: 4 06-19-2023 Episodic Fluid and electrolyte disorders (20 sources) Acute hypokalemia; Translations: [Hypokalemia] Onset: 3 05-22-2021 Episodic Gastritis and duodenitis (1 source) Acute gastritis without bleeding Onset: 2 Resolved: 2 Episodic Mood disorders (12 sources) Mood disorders Onset: 3 05-12-2023 Other bone disease and musculoskeletal deformities (12 sources) Disorder of bone development; Translations: [Other disorders of bone development and growth, multiple sites] Onset: 1 02-19-2023 Episodic Other connective tissue disease (12 sources) Falls; Translations: [Repeated falls] Onset: 3 12-31-2022 Episodic Other connective tissue disease (12 sources) Recurrent falls ; Translations: [Repeated falls] Onset: 1 02-19-2023 Episodic Other connective tissue disease (12 sources) Muscle weakness; Translations: [Muscle weakness (generalized)] Onset: 1 02-19-2023 Episodic Other ear and sense organ disorders (12 sources) Bilateral sensation of blocked ears; Translations: [Other specified disorders of ear, bilateral] Onset: 3 12-31-2022 Episodic Other gastrointestinal disorders (1 source) Constipation, unspecified; Translations: [Constipation, unspecified] Onset: 4 Episodic Other lower respiratory disease (15 sources) Shortness of breath; Translations: [Dyspnea] Onset: 9 02-19-2023 Episodic Other nervous system disorders (12 sources) Unsteady when standing; Translations: [Unsteadiness on feet] Onset: 3 12-31-2022 Episodic Other nervous system disorders (12 sources) Unsteady when walking; Translations: [Unsteadiness on feet] Onset: 1 02-19-2023 Episodic Other nervous system disorders (12 sources) Incoordination; Translations: [Unspecified lack of coordination] Onset: 1 02-19-2023 Episodic Other nervous system disorders (12 sources) Paresthesia; Translations: [Paresthesia of skin] Onset: 4 01-11-2024 Episodic Other screening for suspected conditions (not mental disorders or infectious disease) (1 source) Other specified abnormal findings of blood chemistry; Translations: [Other specified abnormal findings of blood chemistry] Onset: 4 Episodic Residual codes; unclassified (1 source) History of clinical finding in subject; Translations: [Personal history of other specified diseases] Resolved: 2 Episodic Residual codes; unclassified (12 sources) Insomnia; Translations: [Insomnia, unspecified] Onset: 3 12-31-2022 Episodic Screening and history of mental health and substance abuse codes (14 sources) Personal history of nicotine dependence; Translations: [Ex-smoker] Onset: 9 02-19-2023 Episodic Unclassified (1 source) Supraventricular tachycardia, unspecified; Translations: [Supraventricular tachycardia, unspecified] Onset: 3 Unclassified (12 sources) Onset: 4 10-20-2023 Results Test Name Value Interpretation Reference Range Facility XR HIPS BILAT W OR WO PELVIS 5+ VWSon 08-16-2024 XR HIPS BILAT W OR WO PELVIS 5+ VWS XR HIPS BILAT W OR WO PELVIS 5+ VWS XR HIPS BILAT W OR WO PELVIS 5+ VWS INDICATION: Other specified mononeuropathies of left lower limb; Disorder of sacrum. Pelvic pain FINDINGS: Satisfactory alignment of the SI joints and pubic symphysis. No displaced pelvic fracture. Satisfactory alignment of the hips. No fracture or dislocation. Mild degenerative changes with sclerosis, subchondral cyst formation, and small spur formation. Partially visualized fusion hardware in the lumbar spine. IMPRESSION: 1. No acute findings. 2. Mild osteoarthritis of the bilateral hips. Finalized by Adi Redmond MD on 08/16/2024 11:50 PM Normal [facility] XR LUMBAR SPINE AP, LATERAL, FLEXION AND EXTENSION ONLYon 08-16-2024 XR LUMBAR SPINE AP, LATERAL, FLEXION AND EXTENSION ONLY XR LUMBAR SPINE AP, LATERAL, FLEXION AND EXTENSION ONLY LUMBAR SPINE 4 VIEW HISTORY: Chronic left-sided low back pain, unspecified whether sciatica present. COMPARISON: MRI lumbar spine 11/24/2023 Upright AP, lateral, and lateral flexion and extension lumbar spine radiographs obtained. IMPRESSION: * Degenerative levoconvex lumbar scoliosis. Inferior pelvic tilt to the right. No evidence for an acute fracture. * Mild retrolisthesis L3 on L4, not significantly changed between flexion and extension. Severe L3-4 disc space narrowing with endplate degenerative change. Disc space narrowing and endplate spurring also noted at L1-2 and L2-3, with eccentric endplate degenerative changes with sclerosis at L2-3 on the right. * Status post laminectomies with posterior fusion L4-S1. Intact hardware without evidence for loosening. There is bony ankylosis of the L4-S1 vertebrae. Finalized by Blane Sultana MD on 08/16/2024 11:20 PM Normal [facility] No Panel Informationon 07-20 FRANK Hughes 07/20/2024 8:56 PM L Inj/Asp: L greater trochanteric bursa on 07/20/2024 2:38 PM Indications: pain Details: 21 G needle, lateral approach Medications: 40 mg methylPREDNISolone Acetate 20 MG/ML Outcome: tolerated well, no immediate complications UTILIZING ASEPTIC TECHNIQUE PT GIVEN INJECTION IN LEFT HIP BURSA NEUROVASC INTACT S/P INJ, TOLERATED WELL Procedure, treatment alternatives, risks and benefits explained, specific risks discussed. Consent was given by the patient. [facility] Appearance of UrineOrdered B y: Sakshi Ojeda on 07-14-2024 Appearance (U) Urine appearance Clear [facility] Bacteria [Presence] in Urine by AutomatedOrdered By: Sakshi Rusty on 07-14-2024 Bacteria Auto Ql (U) Bacteria [Presence] in Urine by Automated None Seen [facility] Bilirubin Test strip Ql (U)O rdered By: Sakshi Rusty on 07-14-2024 Bilirubin Ql (U) Bilirubin.total [Presence] in Urine by Test strip Negative [facility] Color Auto (U)Ordered By: Ab fidencio Ojeda on 07-14-2024 Color (U) Color of Urine by Auto Yellow Fi [facility] Creatinine [Mass/volume] in UrineOrdered By: Sakshi Ojeda on 07-14-2024 Creatinine (U) [Mass/Vol] Creatinine [Mass/volume] in Urine [facility] Comment on above: No reference range e stablished Dipstick and Microscopicon 1 09-13-2023 Appearance (U) Clear Normal Clear [facility] Comment on above: Order Comment: Name Collection Type:: Clean-Voided Midstream Performed By: #### A DDONUAPLUS, PROCRERAT #### [facility] [address] [id number] [place] Bacteria,Urine None Seen Normal None Seen [facility] Comment on above: Order Comment: Name Collection Type:: Clean-Voided Midstream Performed By: #### A DDONUAPLUS, PROCRERAT #### [facility] [address] [place] [address] [place] Bilirubin,Urine Negative Normal Negative [facility] Comment on above: Order Comment: Name Collection Type:: Clean-Voided Midstream Performed By: #### A DDONUAPLUS, PROCRERAT #### [facility] [address] [id number] [place] Color (U) Light-Yellow Normal Yellow [facility] Comment on above: Order Comment: Name Collection Type:: Clean-Voided Midstream Performed By: #### A DDONUAPLUS, PROCRERAT #### [address] Glucose Ql (U) Normal Normal Normal [facility] Comment on above: Order Comment: Name Collection Type:: Clean-Voided Midstream Performed By: #### A DDONUAPLUS, PROCRERAT #### [place] [address] [place] Hyaline Casts,Urine None Normal 0-8 [facility] Comment on above: Order Comment: Name Collection Type:: Clean-Voided Midstream Performed By: #### A DDONUAPLUS, PROCRERAT #### [address] Ketones Ql (U) Negative Normal Negative [facility] Comment on above: Order Comment: Name Collection Type:: Clean-Voided Midstream Performed By: #### A DDONUAPLUS, PROCRERAT #### [address] Leukocyte esterase Test strip Ql (U) Negative Normal Negative [facility] Comment on above: Order Comment: Name Collection Type:: Clean-Voided Midstream Performed By: #### A DDONUAPLUS, PROCRERAT #### [address] Mucus,Urine Rare Normal [facility] Comment on above: Order Comment: Name Collection Type:: Clean-Voided Midstream Result Comment: PERF ORMED BY: [place] [address] PATHOLOGIST SPRAY CEMENTER AN SANDERS M.D. Performed By: #### A DDONUAPLUS, PROCRERAT #### [place] [address] [place] Nitrite,Urine Negative Normal Negative [facility] Comment on above: Order Comment: Name Collection Type:: Clean-Voided Midstream Performed By: #### A DDONUAPLUS, PROCRERAT #### [address] Occult Blood,Urine Negative Normal Negative [facility] Comment on above: Order Comment: Name Collection Type:: Clean-Voided Midstream Performed By: #### A DDONUAPLUS, PROCRERAT #### [address] pH (U) 6.5 [pH] Normal 5.0-9.0 [facility] Comment on above: Order Comment: Name Collection Type:: Clean-Voided Midstream Performed By: #### A DDONUAPLUS, PROCRERAT #### [address] Protein,Urine Negative Normal Negative [facility] Comment on above: Order Comment: Name Collection Type:: Clean-Voided Midstream Performed By: #### A DDONUAPLUS, PROCRERAT #### [address] RBC,Urine 1 [HPF] Normal 0-4 [facility] Comment on above: Order Comment: Name Collection Type:: Clean-Voided Midstream Performed By: #### A DDONUAPLUS, PROCRERAT #### [address] Specificy [place],Urine 1.019 Normal 1.00 1-1.03 0 [facility] Comment on above: Order Comment: Name Collection Type:: Clean-Voided Midstream Performed By: #### A DDONUAPLUS, PROCRERAT #### [place] [address] [place] Squamous Epithelial Cell,Urine 3 [HPF] High 0-2 [facility] Comment on above: Order Comment: Name Collection Type:: Clean-Voided Midstream Performed By: #### A DDONUAPLUS, PROCRERAT #### [address] Urobilinogen,Urine Normal Normal Normal [facility] Comment on above: Order Comment: Name Collection Type:: Clean-Voided Midstream Performed By: #### A DDONUAPLUS, PROCRERAT #### [facility] [address] [place] [address] [place] WBC,Urine 1 [HPF] Normal 0-4 [facility] Comment on above: Order Comment: Name Collection Type:: Clean-Voided Midstream Performed By: #### A DDONUAPLUS, PROCRERAT #### [facility] [address] [place] [address] [place] Epithelial cells.squamous [# /area] in Urine sediment by Automated countOrdered By: Sakshi Ojeda on 07-14-2024 Epithelial cells.squamous Auto (Urine sed) [#/Area] Epithelial cells.squamous [#/area] in Urine sediment by Automated count High 0-2 [facility] Erythrocytes [#/area] in Uri ne sediment by Automated countOrdered By: Sakshi Ojeda on 07-14-2024 RBC Auto (Urine sed) [#/Area] Erythrocytes [#/area] in Urine sediment by Automated count 0-4 [facility] Glucose [Mass/volume] in Uri ne by Test stripOrdered By: Sakshi Ojeda on 07-14-2024 Glucose Test strip (U) [Mass/Vol] Glucose [Mass/volume] in Urine by Test strip Normal [facility] Hemoglobin Test strip Ql (U) Ordered By: Sakshi Ojeda on 07-14-2024 Hemoglobin Ql (U) Hemoglobin [Presence ] in Urine by Test strip Negative [facility] Hyaline casts [#/area] in Ur ine sediment by Automated countOrdered By: Sakshi Ojeda on 07-14-2024 Hyaline casts Auto (Urine sed) [#/Area] Hyaline casts [#/area] in Urine sediment by Automated count 0-8 [facility] Ketones Test strip Ql (U)Ord ered By: Sakshi Ojeda on 07-14-2024 Ketones Ql (U) Ketones [Presence] i n Urine by Test strip Negative [facility] Leukocyte esterase [Presence ] in Urine by Test stripOrdered By: Sakshi Ojeda on 07-14-2024 Leukocyte esterase Test strip Ql (U) Leukocyte esterase [Presence] in Urine by Test strip Negative [facility] Leukocytes [#/area] in Urine sediment by Automated countOrdered By: Sakshi Ojeda on 07-14-2024 WBC Auto (Urine sed) [#/Area] Leukocytes [#/area] in Urine sediment by Automated count 0-4 [facility] Mucus [Presence] in Urine by AutomatedOrdered By: Sakshi Ojeda on 07-14-2024 Mucus Auto Ql (U) Mucus [Presence] in Urine by Automated [facility] Nitrite Test strip Ql (U)Ord ered By: Sakshi Ojeda on 07-14-2024 Nitrite Ql (U) Nitrite [Presence] i n Urine by Test strip Negative [facility] Protein Creat Ratio Ur Rando mon 07-14-2024 Creatinine, Urine (Random) 73.00 mg/dL Normal [facility] Comment on above: Result Comment: No r eference range established Performed By: #### A DDONUAPLUS, PROCRERAT #### [facility] [address] Protein (U) [Mass/Vol] 11 mg/dL High 0-9 [facility] Comment on above: Performed By: #### A DDONUAPLUS, PROCRERAT #### [facility] [address] [place] [address] Urine Protein/Creatinine Ratio 151 mg/g{Cre} Normal 0-200 [facility] Comment on above: Result Comment: PERF ORMED BY: [place] [address] PATHOLOGIST SPRAY CEMENTER AN SANDERS M.D. Performed By: #### A DDONUAPLUS, PROCRERAT #### [facility] [address] Protein Test strip (U) [Mass /Vol]Ordered By: Sakshi Ojeda on 07-14-2024 Protein (U) [Mass/Vol] Protein [Mass/vol ume] in Urine by Test strip Negative [facility] Protein [Mass/volume] in Uri neOrdered By: Sakshi Ojeda on 07-14-2024 Protein (U) [Mass/Vol] Protein [Mass/vol ume] in Urine High 0-9 [facility] Specific gravity Test strip (U) [Rel density]Ordered By: Sakshi Ojeda on 07-14-2024 Specific gravity (U) [Rel density] Specific gravity of Urine by Test strip 1.001-1.03 0 [facility] Urine protein/creatinine rat ioOrdered By: Sakshi Ojeda on 07-14-2024 Protein/Creatinine (U) [Ratio] Urine protein/creatinine ratio 0-200 [facility] Urobilinogen Test strip (U) [Mass/Vol]Ordered By: Sakshi Ojeda on 07-14-2024 Urobilinogen (U) [Mass/Vol] Urobilinogen [Mass/volume] in Urine by Test strip Normal [facility] pH Test strip (U)Ordered By: Sakshi Ojeda on 07-14-2024 pH (U) pH of Urine by Test strip 5.0-9.0 [facility] Albumin [Mass/volume] in Ser um or Plasma by Bromocresol green (BCG) dye binding methoOrdered By: Sakshi Ojeda on 07-05-2024 Albumin BCG dye [Mass/Vol] 3.9 g/dL 3.5-5.7 [facility] Albumin BCG dye [Mass/Vol] Albumin [Mass/volume] in Serum or Plasma by Bromocresol green (BCG) dye binding metho 3.5-5.7 [facility] Calcium [Mass/volume] in Ser um or PlasmaOrdered By: Sakshi Ojeda on 07-05-2024 Calcium [Mass/Vol] 9.3 mg/dL Normal 8.6-10.3 [facility] Comment on above: Order Comment: Reaso n for Exam Chronic kidney disease, stage III (moderate);Klever hy kid w cr FASTING. JKW Performed By: #### U SATYA, MG, RENAL, [id number] #### [facility] [address] Calcium [Mass/Vol] Calcium [Mass/volume ] in Serum or Plasma 8.6-10.3 [facility] Carbon dioxide, total [Moles /volume] in Serum or PlasmaOrdered By: Sakshi Ojeda on 07-05-2024 CO2 [Moles/Vol] 31.2 mmol/L High 21.0-31.0 [facility] Comment on above: Order Comment: Reaso n for Exam Chronic kidney disease, stage III (moderate);Klever rollins w cr FASTING. JKW Performed By: #### U SATYA, MG, RENAL, [id number] #### [facility] [address] [place] [id number] [place] CO2 [Moles/Vol] Carbon dioxide, tota l [Moles/volume] in Serum or Plasma High 21.0-31.0 [facility] Chloride [Moles/volume] in S elías or PlasmaOrdered By: Sakshi Ojeda on 07-05-2024 Chloride [Moles/Vol] 103 mmol/L Normal 98-107 [facility] Comment on above: Order Comment: Reaso n for Exam Chronic kidney disease, stage III (moderate);Klever rollins w cr FASTING. JKW Performed By: #### U SATYA, MG, RENAL, [id number] #### [facility] [address] [place] [id number] [place] Chloride [Moles/Vol] Chloride [Moles/vol ume] in Serum or Plasma 98-107 [facility] Creatinine [Mass/volume] in Serum or PlasmaOrdered By: Sakshi Ojeda on 07-05-2024 Creatinine [Mass/Vol] 1.03 mg/dL Normal 0.60-1.[address] [facility] Comment on above: Order Comment: Reaso n for Exam Chronic kidney disease, stage III (moderate);Klever rollins w cr FASTING. JKW Performed By: #### U SATYA, MG, RENAL, [id number] #### [facility] [address] [place] [id number] [place] Creatinine [Mass/Vol] Creatinine [Mass/v olume] in Serum or Plasma 0.60-1.20 [facility] Erythrocyte distribution wid th Auto (RBC) [Ratio]Ordered By: Sakshi Ojeda on 07-05-2024 Erythrocyte distribution width (RBC) [Ratio] Erythrocyte distribution width [Ratio] by Automated count 11.9-15.3 [facility] Erythrocyte distribution wid th [Ratio] by Automated countOrdered By: Sakshi Ojeda on 07-05-2024 Erythrocyte distribution width (RBC) [Ratio] 13.4 % Normal 11.9-15.3 [facility] Comment on above: Order Comment: Reaso n for Exam Chronic kidney disease, stage III (moderate);Klever briggs kid w cr Performed By: #### C BCNO #### [facility] [address] [place] [address] [place] Erythrocytes [#/volume] in B lood by Automated countOrdered By: Sakshi Ojeda on 07-05-2024 RBC (Bld) [#/Vol] 4.01 10*6/uL Normal 3.60-5.00 [facility] Comment on above: Order Comment: Reaso n for Exam Chronic kidney disease, stage III (moderate);Klever briggs kid w cr Performed By: #### C BCNO #### [facility] [address] [place] [id number] [place] Glucose [Mass/volume] in Ser um or PlasmaOrdered By: Sakshi Ojeda on 07-05-2024 Glucose [Mass/Vol] 88 mg/dL Normal 70-100 [facility] Comment on above: ADA recommended refe rence rangeRandom Glucose Reference Range is dependent on time and content of last meal. Glucose of more than 200 mg/dL in a nonstressed, ambulatory subject supports the diagnosis of Diabetes Mellitus. Order Comment: Reaso n for Exam Chronic kidney disease, stage III (moderate);Klever brigitte kid w cr FASTING. JKW Result Comment: [place] om Glucose Reference Range is dependent on time and content of last meal. Glucose of more than 200 mg/dL in a nonstressed, ambulatory subject supports the diagnosis of Diabetes Mellitus. ADA recommended reference range Performed By: #### U SATYA, MG, RENAL, [id number] #### [facility] [address] [place] [id number] [place] Glucose [Mass/Vol] Glucose [Mass/volume ] in Serum or Plasma 70-100 [facility] Comment on above: ADA recommended refe rence rangeRandom Glucose Reference Range is dependent on time and content of last meal. Glucose of more than 200 mg/dL in a nonstressed, ambulatory subject supports the diagnosis of Diabetes Mellitus. Hematocrit Auto (Bld) [Volum e fraction]Ordered By: Sakshi Ojeda on 07-05-2024 Hematocrit (Bld) [Volume fraction] Hematocrit [Volume Fraction] of Blood by Automated count 34.0-46.4 [facility] Hematocrit [Volume Fraction] of Blood by Automated countOrdered By: Sakshi Ojeda on 07-05-2024 Hematocrit (Bld) [Volume fraction] 36.5 % Normal 34.0-46.4 [facility] Comment on above: Order Comment: Reaso n for Exam Chronic kidney disease, stage III (moderate);Klever hy kid w cr Performed By: #### C BCNO #### [address] Hemoglobin [Mass/volume] in BloodOrdered By: Sakshi Ojeda on 07-05-2024 Hemoglobin (Bld) [Mass/Vol] 12.4 g/dL Normal 11.8-15.4 [facility] Comment on above: Order Comment: Reaso n for Exam Chronic kidney disease, stage III (moderate);Klever hy kid w cr Performed By: #### C BCNO #### [facility] [address] [place] [address] Hemoglobin (Bld) [Mass/Vol] Hemoglobin [Mass/volume] in Blood 11.8-15.4 [facility] Hemogram CBC Without Diffon 07-05-2024 Mean Corpuscular HGB Conc 34.0 g/dL Normal 32.0-35.0 [facility] Comment on above: Order Comment: Reaso n for Exam Chronic kidney disease, stage III (moderate);Klever hy kid w cr Performed By: #### C BCNO #### [facility] [address] [place] [address] WBC (Bld) [#/Vol] 4.7 10*3/uL Normal 3.8-11.6 [facility] license of [facility] Comment on above: Order Comment: Reaso n for Exam Chronic kidney disease, stage III (moderate);Klever hy kid w cr Performed By: #### C BCNO #### [facility] [address] [place] [id number] [facility] Leukocytes [#/volume] correc pauline for nucleated erythrocytes in Blood by Automated counOrdered By: Sakshi Pennydir on 07-05-2024 WBC corrected for nucl RBC Auto (Bld) [#/Vol] 4.7 10*3/uL 3.8-11.6 [facility] WBC corrected for nucl RBC Auto (Bld) [#/Vol] Leukocytes [#/volume] corrected for nucleated erythrocytes in Blood by Automated coun 3.8-11.6 [facility] MCH Auto (RBC) [Entitic mass ]Ordered By: Sakshi Rusty on 07-05-2024 MCH (RBC) [Entitic mass] MCH [Entitic mass] by Automated count 24.7-34.3 [facility] MCH [Entitic mass] by Automa pauline countOrdered By: Sakshi Pennydir on 07-05-2024 MCH (RBC) [Entitic mass] 31.0 pg Normal 24.7-34.3 [facility] Comment on above: Order Comment: Reaso n for Exam Chronic kidney disease, stage III (moderate);Klever hy kid w cr Performed By: #### C BCNO #### [facility] [address] [place] [address] MCHC Auto (RBC) [Mass/Vol]Or dered By: Saksih Pennydir on 07-05-2024 MCHC (RBC) [Mass/Vol] 34.0 g/dL 32.0-35.[address] [facility] MCHC (RBC) [Mass/Vol] MCHC [Mass/volume] by Automated count 32.0-35.0 [facility] MCV Auto (RBC) [Entitic vol] Ordered By: Sakshi Pennydir on 07-05-2024 MCV (RBC) [Entitic vol] MCV [Entitic vol ume] by Automated count 80-100 [facility] MCV [Entitic volume] by Auto mated countOrdered By: Sakshi Pennydir on 07-05-2024 MCV (RBC) [Entitic vol] 91.0 fL Normal 80-100 [facility] Comment on above: Order Comment: Reaso n for Exam Chronic kidney disease, stage III (moderate);Klever hy kid w cr Performed By: #### C BCNO #### [facility] [address] [place] [address] [place] Magnesium [Mass/volume] in S elaís or PlasmaOrdered By: Sakshi Ojeda on 07-05-2024 Magnesium [Mass/Vol] 1.8 mg/dL Low 1.9-2.7 [facility] Comment on above: Order Comment: Reaso n for Exam Chronic kidney disease, stage III (moderate);Klever rollins w cr FASTING. JKW Performed By: #### U SATYA, MG, RENAL, [id number] #### [facility] [address] [place] [address] [place] Magnesium [Mass/Vol] Magnesium [Mass/vol ume] in Serum or Plasma Low 1.9-2.7 [facility] No Panel InformationOrdered By: Sakshi Ojeda on 07-05-2024 Estimated GFR (CKD-EPI) 51.974 mL/Min [facility] Creatinine Clearance (Chem N/A [facility] Parathyrin.intact [Mass/volu me] in Serum or PlasmaOrdered By: Sakshi Ojeda on 07-05-2024 Parathyrin.intact [Mass/Vol] 46.4 pg/mL [facility] Parathyrin.intact [Mass/Vol] Parathyrin.intact [Mass/volume] in Serum or Plasma [facility] Parathyroid Hormone [place] 07-05-2024 Parathyroid Hormone Intact 46.4 pg/mL Normal [facility] Comment on above: Order Comment: Reaso n for Exam Chronic kidney disease, stage III (moderate);Klever rollins w cr Result Comment: PERF ORMED BY: [facility] [address] [place] [address] PATHOLOGIST SPRAY CEMENTER ALEXIA GARCIA M.D. Performed By: #### P TH #### [facility] [address] [place] [address] [place] Phosphate [Mass/volume] in S elías or PlasmaOrdered By: Sakshi Ojeda on 07-05-2024 Phosphate [Mass/Vol] 3.7 mg/dL Normal 2.5-4.5 [facility] Comment on above: Order Comment: Reaso n for Exam Chronic kidney disease, stage III (moderate);Klever bradley FASTING. JKW Performed By: #### U SATYA, MG, RENAL, [id number] #### [facility] [address] [place] [address] Phosphate [Mass/Vol] Phosphate [Mass/vol ume] in Serum or Plasma 2.5-4.5 [facility] Platelet mean volume Auto (B ld) [Entitic vol]Ordered By: Sakshi Rusty on 07-05-2024 Platelet mean volume (Bld) [Entitic vol] Platelet mean volume [Entitic volume] in Blood by Automated count 6.3-10.7 [facility] Platelet mean volume [Entiti c volume] in Blood by Automated countOrdered By: Sakshi Rusty on 07-05-2024 Platelet mean volume (Bld) [Entitic vol] 9.3 fL Normal 6.3-10.7 [facility] Comment on above: Order Comment: Reaso n for Exam Chronic kidney disease, stage III (moderate);Klever bradley Result Comment: PERF ORMED BY: [place] [address] PATHOLOGIST SPRAY CEMENTER ALEXIA GARCIA M.D. Performed By: #### C BCNO #### [place] [address] [place] Platelets Auto (Bld) [#/Vol] Ordered By: Sakshi Rusty on 07-05-2024 Platelets (Bld) [#/Vol] Platelets [#/vol ume] in Blood by Automated count 150-450 [facility] Platelets [#/volume] in Bloo d by Automated countOrdered By: Sakshi Rusty on 07-05-2024 Platelets (Bld) [#/Vol] 199 10*3/uL Normal 150-450 [facility] Comment on above: Order Comment: Reaso n for Exam Chronic kidney disease, stage III (moderate);Klever terry cr Performed By: #### C BCNO #### [facility] [address] [place] [address] [place] Potassium [Moles/volume] in Serum or PlasmaOrdered By: Sakshi Ojeda on 07-05-2024 Potassium [Moles/Vol] 4.1 mmol/L Normal 3.5-5.[address] [facility] Comment on above: Order Comment: Reaso n for Exam Chronic kidney disease, stage III (moderate);Klever hy kid w cr FASTING. JKW Performed By: #### U SATYA, MG, RENAL, [id number] #### [facility] [address] [place] [id number] [place] Potassium [Moles/Vol] Potassium [Moles/v olume] in Serum or Plasma 3.5-5.1 [facility] RBC Auto (Bld) [#/Vol]Ordere d By: Sakshi Ojeda on 07-05-2024 RBC (Bld) [#/Vol] Erythrocytes [#/volu me] in Blood by Automated count 3.60-5.00 [facility] Renal Function Panelon 07-05 Albumin [Mass/Vol] 3.9 g/dL Normal 3.5-5.7 [facility] On license [facility] Comment on above: Order Comment: Reaso n for Exam Chronic kidney disease, stage III (moderate);Klever hy kid w cr FASTING. JKW Performed By: #### U SATYA, MG, RENAL, [id number] #### [facility] [address] [place], [place] [address] [place] GFR/1.73 sq M.predicted MDRD (S/P/Bld) [Vol rate/Area] 51.974 mL/min/{1.73_m2} Normal [facility] Comment on above: Order Comment: Reaso n for Exam Chronic kidney disease, stage III (moderate);Klever hy kid w cr FASTING. JKW Performed By: #### U SATYA, MG, RENAL, [id number] #### [facility] [address] [place] [address] [place] Serum or plasma anion gap de terminationOrdered By: Sakshi Ojeda on 07-05-2024 Anion gap [Moles/Vol] 9.9 mmol/L Normal 6.0-15.[address] [facility] Comment on above: Order Comment: Reaso n for Exam Chronic kidney disease, stage III (moderate);Klever hy kid w cr FASTING. JKW Performed By: #### U SATYA, MG, RENAL, [id number] #### [facility] [address] [place] [address] [facility] Anion gap [Moles/Vol] Serum or plasma an ion gap determination 6.0-15.0 [facility] Sodium [Moles/volume] in Ser um or PlasmaOrdered By: Sakshi Rusty on 07-05-2024 Sodium [Moles/Vol] 140 mmol/L Normal 136-145 [facility] Comment on above: Order Comment: Reaso n for Exam Chronic kidney disease, stage III (moderate);Klever hy kid w cr FASTING. JKW Performed By: #### U SATYA, MG, RENAL, [id number] #### [facility] [address] [place], [place] [address] [facility] Sodium [Moles/Vol] Sodium [Moles/volume ] in Serum or Plasma 136-145 [facility] Urate [Mass/volume] in Serum or PlasmaOrdered By: Sakshi Rusty on 07-05-2024 Urate [Mass/Vol] 4.3 mg/dL Normal 2.3-6.6 [facility] Comment on above: Order Comment: Reaso n for Exam Chronic kidney disease, stage III (moderate);Klever hy kid w cr FASTING. JKW Performed By: #### U SATYA, MG, RENAL, [id number] #### [facility] [address] [place] [id number] [place] Urate [Mass/Vol] Urate [Mass/volume] in Serum or Plasma 2.3-6.6 [facility] Urea nitrogen [Mass/volume] in Serum or PlasmaOrdered By: Sakshi Rusty on 07-05-2024 Urea nitrogen [Mass/Vol] 22 mg/dL Normal 7-25 [facility] Comment on above: Order Comment: Reaso n for Exam Chronic kidney disease, stage III (moderate);Klever hy kid w cr FASTING. JKW Performed By: #### U SATYA, MG, RENAL, [id number] #### [facility] [address] [place] [address] [facility] Urea nitrogen [Mass/Vol] Urea nitrogen [Mass/volume] in Serum or Plasma 03-24 [facility] Vitamin D 25 Hydroxy Totalon 07-05-2024 Vitamin D 25 Hydroxy Total 48.1 ng/mL Normal 30-100 [facility] Comment on above: Order Comment: Reaso n for Exam Chronic kidney disease, stage III (moderate);Klever hy kid w cr FASTING. JKW Result Comment: ELIJAH MIN D STATUS 25([place])VITAMIN D RANGE (ng/mL) Deficient <20 Insufficient 20 to <30 Sufficient 30 to 100 Reference: Julianna Menendez, Usama MENARD, et al. Evaluation,treatment, and prevention of vitamin D deficiency; an Endocrine Society clinical practice guideline. JCEM. 2010; 96(7):1911-. PERFORMED BY: [place] [address] PATHOLOGIST SPRAY CEMENTER ALEXIA GARCIA M.D. Performed By: #### U SATYA, MG, RENAL, [id number] #### [facility] [address] [place] [address] [facility] Vitamin D+Metabolites [Mass/ volume] in Serum or PlasmaOrdered By: Sakshi Ojeda on 07-05-2024 Vitamin D+Metabolites [Mass/Vol] 48.1 ng/mL 30-100 [facility] Comment on above: VITAMIN D STATUS 25( [place])VITAMIN D RANGE (ng/mL) Deficient <20 Insufficient 20 to <30Sufficient 30 to 100Reference: Julianna Menendez, Usama MENARD, et al. Evaluation,treatment, and prevention of vitamin D deficiency; an Endocrine Society clinical practice guideline. JCEM. 2010; 96(7):1911-30. Vitamin D+Metabolites [Mass/Vol] Vitamin D+Metabolites [Mass/volume] in Serum or Plasma 30-100 [facility] Comment on above: VITAMIN D STATUS 25( [place])VITAMIN D RANGE (ng/mL) Deficient <20 Insufficient 20 to <30Sufficient 30 to 100Reference: Julianna Menendez, Maxwell-Chapo MENARD, et al. Evaluation,treatment, and prevention of vitamin D deficiency; an Endocrine Society clinical practice guideline. JCEM. 2010; 96(7):1911-30. CBC AND AUTO DIFFon 04-28-20 24 ABSOLUTE BASOPHIL 0.0 X10E9/L Normal 0.0-0.2 [facility] Comment on above: Performed By: #### C EVITA, 3040-3, CBCA #### [facility] ([id number]) [address] [place] [address] ABSOLUTE NEUTROPHIL 6.0 X10E9/L Normal 1.5-6.[address] [facility] Comment on above: Performed By: #### C EVITA, 3039-10, CBCA #### [facility] ([id number]) [address] [place] [address] Basophils/100 WBC (Bld) 0.4 % Normal [facility] Comment on above: Performed By: #### C EVITA, 3, CBCA #### [facility] ([id number]) [address] [place] [address] Eosinophils (Bld) [#/Vol] 0.1 10*3/uL Normal 0.0-0.4 [facility] Comment on above: Performed By: #### C EVITA, 3039-10, CBCA #### [facility] ([id number]) [address] [place] [address] Eosinophils/100 WBC (Bld) 1.3 % Normal [facility] Comment on above: Performed By: #### C EVITA, 3039-3, CBCA #### [facility] ([id number]) [address] [place] [address] Erythrocyte distribution width (RBC) [Ratio] 12.9 % Normal 11.5-15.0 [facility] Comment on above: Performed By: #### C EVITA, 3039-3, CBCA #### [facility] ([id number]) [address] [place] [address] Hematocrit (Bld) [Volume fraction] 35.3 % Normal 35-47 [facility] Comment on above: Performed By: #### C EVITA, 3039-10, CBCA #### [facility] ([id number]) [address] [place] [address] Hemoglobin (Bld) [Mass/Vol] 12.0 g/dL Normal 11.7-15.5 [facility] Comment on above: Performed By: #### C EVITA, 3039-10, CBCA #### [facility] ([id number]) [address] [place] [address] Lymphocytes (Bld) [#/Vol] 1.2 10*3/uL Normal 1.0-3.5 [facility] Comment on above: Performed By: #### C EVITA, 3039-10, CBCA #### [facility] ([id number]) [address] [place] [address] Lymphocytes/100 WBC (Bld) 14.8 % Normal [facility] Comment on above: Performed By: #### C EVITA, 3039-10, CBCA #### [facility] ([id number]) [address] [place] [address] MCH (RBC) [Entitic mass] 31.2 pg Normal 27-34 [facility] Comment on above: Performed By: #### C EVITA, 3039-10, CBCA #### [facility] ([id number]) [address] [place] [address] MCHC (RBC) [Mass/Vol] 34.1 g/dL Normal 32-36 [facility] Comment on above: Performed By: #### C EVITA, 3, CBCA #### [facility] ([id number]) [address] [place] [address] MCV (RBC) [Entitic vol] 91 fL Normal 80-100 [facility] Comment on above: Performed By: #### Gely JAMA, 3039-10, CBCA #### [facility] ([id number]) [address] [place] [address] Monocytes (Bld) [#/Vol] 0.8 10*3/uL Normal 0-0.9 [facility] Comment on above: Performed By: #### C EVITA, 3039-10, CBCA #### [facility] ([id number]) [address] [place] [address] Monocytes/100 WBC (Bld) 9.5 % Normal [facility] Comment on above: Performed By: #### Gely JAMA, 3039-10, CBCA #### [facility] ([id number]) [address] [place] [address] 165[address] Neutrophils/100 WBC (Bld) 74.0 % Normal [facility] Comment on above: Performed By: #### Gely JAMA, 3039-10, CBCA #### [facility] ([id number]) [address] [place] [address] Platelet mean volume (Bld) [Entitic vol] 10.0 fL Normal 7-12 [facility] Comment on above: Performed By: #### Gely JAMA, 3039-10, CBCA #### [facility] ([id number]) [address] [place] [address] Platelets (Bld) [#/Vol] 226 10*3/uL Normal 150-450 [facility] Comment on above: Performed By: #### Gely JAMA, 3039-10, CBCA #### [facility] ([id number]) [address] [place] [address]60 RBC COUNT 3.86 X10E12/L Normal 3.80-5.20 [facility] Comment on above: Performed By: #### C EVITA, 3039-10, CBCA #### [facility] ([id number]) [address] [place] [address] WBC (Bld) [#/Vol] 8.1 10*3/uL Normal 4.0-11.0 [facility] Comment on above: Performed By: #### C EVITA, 3039-10, CBCA #### [facility] ([id number]) [address] [place] [address] COMPREHENSIVE METABOLIC PANE Ti 04-28-2024 Albumin [Mass/Vol] 3.6 g/dL Normal 3.2-5.3 [facility] Comment on above: Performed By: #### C EVITA, 3039-10, CBCA #### [facility] ([id number]) [address] [place] [address] ALP [Catalytic activity/Vol] 57 U/L Normal 39-130 [facility] Comment on above: Performed By: #### C EVITA, 3039-10, CBCA #### [facility] ([id number]) [address] [place] [address] ALT [Catalytic activity/Vol] 14 U/L Normal 0-31 [facility] Comment on above: Performed By: #### Gely JAMA, 3039-10, CBCA #### [facility] ([id number]) [address] [place] [address]21 Anion gap [Moles/Vol] 8 mmol/L Normal 5-15 [facility] Comment on above: Performed By: #### Gely JAMA, 3039-10, CBCA #### [facility] ([id number]) [address] [place] [address] AST [Catalytic activity/Vol] 17 U/L Normal 0-41 [facility] Comment on above: Performed By: #### C EVITA, 3039-10, CBCA #### [facility] ([id number]) [address] [place] [address] 99664 Bilirubin [Mass/Vol] 0.7 mg/dL Normal 0.3-1.[address] [facility] Comment on above: Performed By: #### C EVITA, 3, CBCA #### [facility] ([id number]) [address] [place] [address]60 Calcium [Mass/Vol] 8.9 mg/dL Normal 8.5-10.5 [facility] Comment on above: Performed By: #### C EVITA, 3039-10, CBCA #### [facility] ([id number]) [address] [place] [address]24 Chloride [Moles/Vol] 102 mmol/L Normal 98-[address] [facility] Comment on above: Performed By: #### C EVITA, 3039-10, CBCA #### [facility] ([id number]) [address] [place] [address] 9[address]18 CO2 [Moles/Vol] 28 mmol/L Normal 22-32 [facility] Comment on above: Performed By: #### Gely JAMA, 3039-10, CBCA #### [facility] ([id number]) [address] [place] [address]607 Creatinine [Mass/Vol] 1.08 mg/dL High 0.40-1.00 [facility] Comment on above: Result Comment: METH OD TRACEABLE TO IDMS STANDARD Performed By: #### C EVITA, 3039-3, CBCA #### [facility] ([id number]) [address] [place] [address]505 GFR/1.73 sq M.predicted among non-blacks MDRD (S/P/Bld) [Vol rate/Area] 49 mL/min/{1.73_m2} Low >59 [facility] Comment on above: Result Comment: Reported eGFR is based on the CKD-EPI 2020 equation that does not use a race coefficient. Performed By: #### Gely JAMA, 3039-10, CBCA #### [facility] ([id number]) [address] [place] [address] 06063 Glucose [Mass/Vol] 88 mg/dL Normal 65-99 [facility] Comment on above: Performed By: #### Gely JAMA, 3039-10, CBCA #### [facility] ([id number]) [address] [place] [address]57 Potassium [Moles/Vol] 3.5 mmol/L Normal 3.5-5.0 [facility] Comment on above: Performed By: #### Gely JAMA, 3039-10, CBCA #### [facility] ([id number]) [address] [place] [address]18 Protein [Mass/Vol] 6.2 g/dL Normal 6.0-8.0 [facility] Comment on above: Performed By: #### Gely JAMA, 3039-10, CBCA #### [facility] ([id number]) [address] [place] [address] 03885 Sodium [Moles/Vol] 138 mmol/L Normal 134-146 [facility] Comment on above: Performed By: #### Gely JAMA, 3039-10, CBCA #### [facility] ([id number]) [address] [place] [address] 17462 Urea nitrogen [Mass/Vol] 28 mg/dL High 5-27 [facility] Comment on above: Performed By: #### Gely JAMA, 3039-10, CBCA #### [facility] ([id number]) [address] [place] [address] 31093 LIPASEon 04-28-2024 Lipase [Catalytic activity/Vol] 21 U/L Normal 17-40 [facility] Comment on above: Performed By: #### C , 3040-3, CBCA #### [facility] ([id number]) [address] [place] [address], [place] [address] XR ABDOMEN COMP DECUB ERECTo n 04-28-2024 XR ABDOMEN COMP DECUB ERECT XR ABDOMEN COMP DECUB ERECT Abdomen: HISTORY: Abdominal pain. 3 views of the abdomen were obtained. Bowel gas pattern is nonspecific and nonobstructive. Colonic stool burden is moderate. No free air. Lumbar degenerative changes noted with levoscoliosis. IMPRESSION: Moderate colonic stool. Workstation:[employer] Finalized by Jose C Wilcox MD on 04/28/2024 2:05 PM Normal [facility] MR LUMBAR SPINE WO CONTon MR LUMBAR SPINE WO CONT MR LUMBAR SPINE WO CONT LUMBAR SPINE MRI WITHOUT CONTRAST History: Back pain persistent despite conservative management for greater than 6 weeks. Radiculopathy.Low back pain, unspecified back pain laterality, unspecified chronicity, unspecified whether sciatica present Comparison: None. Technique: Multiplanar multisequence MR imaging of the lumbar spine was performed without contrast. Findings: Preserved lumbar vertebral body heights. Multilevel malalignment with 3 mm retrolisthesis L1 at L2, L2 on L3, L4 and L5. Levoconvex curvature apex at L2-3. Grade 1 anterolisthesis L5 on S1. Posterior elena pedicle screw fixation L4-S1, associated laminectomies, interbody cage devices: susceptibility from indwelling hardware. Conus terminates at L1, no distal cord signal change. T12-L1:Mild posterior facet arthropathy, ligamentum flavum thickening. Mild thecal sac narrowing. Minimal neural foraminal narrowing. L1-L2:Disc bulge extends into the foraminal and extra foraminal regions. Ligamentum flavum thickening. Mild/moderate thecal sac narrowing. Mild bilateral neural foraminal narrowing. L2-L3:Marginal disc osteophyte extends into the right greater than left foraminal and extra foraminal regions. Ligamentum flavum thickening. Mild/moderate thecal sac narrowing. Mild/moderate right greater than left neural foraminal narrowing. L3-L4:Laminectomy. Retrolisthesis, marginal disc osteophyte extends into the foraminal and extra foraminal regions. Asymmetric crowding left vertebral zone [series 10 image #13]. Moderate to severe left greater than right neural foraminal narrowing. L4-L5:Laminectomy, capacious thecal sac. Mild/moderate left greater than right neural foraminal narrowing. L5-S1:Laminectomy, capacious thecal sac. Mild/moderate bilateral neural foraminal narrowing. Fatty replacement, volume loss lower lumbar paraspinal musculature, right more so than left. Diverticulosis. Mild degenerative changes sacroiliac joints. Impression: 1. 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 Moderate to severe neural foraminal narrowing at left greater than right L3-4. 2. Additional findings, degenerative changes, detailed in the body of the report. Finalized by Geo Hernandez MD on 11/26/2023 1:59 AM Normal [facility] CBC AND AUTO DIFFon 10-27-19 ABSOLUTE BASOPHIL 0.0 X10E9/L Normal 0.0-0.2 [facility] Comment on above: Performed By: #### C BCA, CMP, 3016-3, 3024-7 #### [facility] ([id number]) [address], [address] [place] [address] ABSOLUTE NEUTROPHIL 3.0 X10E9/L Normal 1.5-6.[address] [facility] Comment on above: Performed By: #### C BCA, CMP, 3016-3, 3024-7 #### [facility] ([id number]) [address], [address] [place] [address] Basophils/100 WBC (Bld) 0.5 % Normal [facility] Comment on above: Performed By: #### C BCA, CMP, 3016-3, 3024-7 #### [facility] ([id number]) [address], [address] [place] [address] Eosinophils (Bld) [#/Vol] 0.2 10*3/uL Normal 0.0-0.4 [facility] Comment on above: Performed By: #### C BCA, CMP, 6-3, 3023-7 #### [facility] ([id number]) [address] [address] [place] [address] Eosinophils/100 WBC (Bld) 3.7 % Normal [facility] Comment on above: Performed By: #### C BCA, CMP, 6-3, 3023-7 #### [facility] ([id number]) [address], [address] [place] [address] Erythrocyte distribution width (RBC) [Ratio] 13.3 % Normal 11.5-15.0 [facility] Comment on above: Performed By: #### C BCA, CMP, 6-3, 7 #### [facility] ([id number]) [address] [address] [place] [address] Hematocrit (Bld) [Volume fraction] 34.9 % Low 35-47 [facility] Comment on above: Performed By: #### C BCA, CMP, 3015-3, 7 #### [facility] ([id number]) [address], [address] [place] [address] Hemoglobin (Bld) [Mass/Vol] 12.0 g/dL Normal 11.7-15.5 [facility] Comment on above: Performed By: #### C BCA, CMP, 3015-3, 7 #### [facility] ([id number]) [address], [address] [place] [address] Lymphocytes (Bld) [#/Vol] 1.1 10*3/uL Normal 1.0-3.5 [facility] Comment on above: Performed By: #### C BCA, CMP, 6-3, 3023-7 #### [facility] ([id number]) [address], [address] [place] [address] Lymphocytes/100 WBC (Bld) 23.4 % Normal [facility] Comment on above: Performed By: #### C BCA, CMP, 6-3, 302-7 #### [facility] ([id number]) [address], [address] [place] [address] MCH (RBC) [Entitic mass] 30.8 pg Normal 27-34 [facility] Comment on above: Performed By: #### C BCA, CMP, 6-3, 3023-7 #### [facility] ([id number]) [address], [address] [place] [address] MCHC (RBC) [Mass/Vol] 34.3 g/dL Normal 32-36 [facility] Comment on above: Performed By: #### C BCA, CMP, 6-3, 3023-7 #### [facility] ([id number]) [address], [address] [place] [address] MCV (RBC) [Entitic vol] 90 fL Normal 80-100 [facility] Comment on above: Performed By: #### C BCA, CMP, 3015-3, 302-7 #### [facility] ([id number]) [address], [address] [place] [address] Monocytes (Bld) [#/Vol] 0.4 10*3/uL Normal 0-0.9 [facility] Comment on above: Performed By: #### C BCA, CMP, 6-3, 3023-7 #### [facility] ([id number]) [address], [address] [place] [address] Monocytes/100 WBC (Bld) 8.8 % Normal [facility] Comment on above: Performed By: #### C BCA, CMP, 6-3, 302-7 #### [facility] ([id number]) [address], [address] [place] [address] Neutrophils/100 WBC (Bld) 63.6 % Normal [facility] Comment on above: Performed By: #### C BCA, CMP, 3016-3, 3024-7 #### [facility] ([id number]) [address], [address] [place] [address] Platelet mean volume (Bld) [Entitic vol] 9.9 fL Normal 7-12 [facility] Comment on above: Performed By: #### C BCA, CMP, 3016-3, 3024-7 #### [facility] ([id number]) [address], [address] [place] [address] Platelets (Bld) [#/Vol] 173 10*3/uL Normal 150-450 [facility] Comment on above: Performed By: #### C BCA, CMP, 3016-3, 3024-7 #### [facility] ([id number]) [address], [address] [place] [address] RBC COUNT 3.89 X10E12/L Normal 3.80-5.20 [facility] Comment on above: Performed By: #### C BCA, CMP, 3016-3, 3024-7 #### [facility] ([id number]) [address], [address] [place] [address] WBC (Bld) [#/Vol] 4.7 10*3/uL Normal 4.0-11.0 [facility] Comment on above: Performed By: #### C BCA, CMP, 3016-3, 3024-7 #### [facility] ([id number]) [address], [address] [place] [address] COMPREHENSIVE METABOLIC PANE Ti 10-27-2023 Albumin [Mass/Vol] 3.8 g/dL Normal 3.2-5.3 [facility] Comment on above: Performed By: #### C BCA, CMP, 3016-3, 3024-7 #### [facility] ([id number]) [address], [address] [place] [address] ALP [Catalytic activity/Vol] 45 U/L Normal 39-130 [facility] Comment on above: Performed By: #### C BCA, CMP, 3016-3, 3024-7 #### [facility] ([id number]) [address], [address] [place] [address] ALT [Catalytic activity/Vol] 10 U/L Normal 0-31 [facility] Comment on above: Performed By: #### C BCA, CMP, 3016-3, 3024-7 #### [facility] ([id number]) [address], [address] [place] [address] Anion gap [Moles/Vol] 6 mmol/L Normal 5-15 [facility] Comment on above: Performed By: #### C BCA, CMP, 3016-3, 3024-7 #### [facility] ([id number]) [address], [address] [place] [address] AST [Catalytic activity/Vol] 15 U/L Normal 0-41 [facility] Comment on above: Performed By: #### C BCA, CMP, 3016-3, 3024-7 #### [facility] ([id number]) [address], [address] [place] [address] Bilirubin [Mass/Vol] 0.6 mg/dL Normal 0.3-1.[address] [facility] Comment on above: Performed By: #### C BCA, CMP, 3016-3, 3024-7 #### [facility] ([id number]) [address], [address] [place] [address] Calcium [Mass/Vol] 9.1 mg/dL Normal 8.5-10.5 [facility] Comment on above: Performed By: #### C BCA, CMP, 3016-3, 3024-7 #### [facility] ([id number]) [address], [address] [place] [address] Chloride [Moles/Vol] 107 mmol/L Normal 98-[address] [facility] Comment on above: Performed By: #### C CONY HURLEY, 6-3, 3023-7 #### [facility] ([id number]) [address], [address] [place] [address] CO2 [Moles/Vol] 29 mmol/L Normal 22-32 [facility] Comment on above: Performed By: #### C CONY HURLEY, 6-3, 3023-7 #### [facility] ([id number]) [address], [address] [place] [address] Creatinine [Mass/Vol] 1.15 mg/dL High 0.40-1.00 [facility] Comment on above: Result Comment: METH OD TRACEABLE TO IDMS STANDARD Performed By: #### C CONY HURLEY, 6-3, 3023-7 #### [facility] ([id number]) [address], [address] [place] [address] GFR/1.73 sq M.predicted among non-blacks MDRD (S/P/Bld) [Vol rate/Area] 46 mL/min/{1.73_m2} Low >59 [facility] Comment on above: Result Comment: Reported eGFR is based on the CKD-EPI 2020 equation that does not use a race coefficient. Performed By: #### C CONY HURLEY, 3015-3, 4-7 #### [facility] ([id number]) [address] [address] [place] [address] Glucose [Mass/Vol] 80 mg/dL Normal 65-99 [facility] Comment on above: Performed By: #### C CONY HURLEY, 6-3, 3024-7 #### [facility] ([id number]) [address] [address] [place] [address] Potassium [Moles/Vol] 3.9 mmol/L Normal 3.5-5.0 [facility] Comment on above: Performed By: #### C BCA, CMP, 3016-3, 3024-7 #### [facility] ([id number]) [address], [address] [place] [address] Protein [Mass/Vol] 5.9 g/dL Low 6.0-8.0 [facility] Comment on above: Performed By: #### C BCA, CMP, 3016-3, 3024-7 #### [facility] ([id number]) [address], [address] [place] [address] Sodium [Moles/Vol] 142 mmol/L Normal 134-146 [facility] Comment on above: Performed By: #### C BCA, CMP, 3016-3, 3024-7 #### [facility] ([id number]) [address], [address] [place] [address] Urea nitrogen [Mass/Vol] 25 mg/dL Normal 5-27 [facility] Comment on above: Performed By: #### C BCA, CMP, 3016-3, 3024-7 #### [facility] ([id number]) [address], [address] [place] [address] FREE T4on 10-27-2023 Free T4 [Mass/Vol] 1.26 ng/dL Normal 0.61-1.60 [facility] Comment on above: Performed By: #### C BCA, CMP, 3016-3, 3024-7 #### [facility] ([id number]) [address], [address] [place] [address] TSH Qnon 10-27-2023 TSH 1.06 uIU/mL Normal 0.49-4.67 [facility] Comment on above: Performed By: #### C BCA, CMP, 3016-3, 3024-7 #### [facility] ([id number]) [address], [address] [place] [address] Alanine aminotransferase [En zymatic activity/volume] in Serum or PlasmaOrdered By: Fan Elliott on 07-14-2023 ALT [Catalytic activity/Vol] 10 U/L 7-52 [facility] Albumin [Mass/volume] in Ser um or Plasma by Bromocresol green (BCG) dye binding methoOrdered By: Sakshi Ojeda on 07-14-2023 Albumin BCG dye [Mass/Vol] 4.0 g/dL 3.5-5.7 [facility] Calcium [Mass/volume] in Ser um or PlasmaOrdered By: Sakshi Ojeda on 07-14-2023 Calcium [Mass/Vol] 9.4 mg/dL 8.6-10.3 [facility] Carbon dioxide, total [Moles /volume] in Serum or PlasmaOrdered By: Sakshi Ojeda on 07-14-2023 CO2 [Moles/Vol] 31.2 mmol/L 21.0-31.0 [facility] Chloride [Moles/volume] in S elías or PlasmaOrdered By: Sakshi Ojeda on 07-14-2023 Chloride [Moles/Vol] 102 mmol/L 98-107 [facility] Creatinine [Mass/volume] in Serum or PlasmaOrdered By: Sakshi Ojeda on 07-14-2023 Creatinine [Mass/Vol] 1.10 mg/dL 0.60-1.[address] [facility] Erythrocyte distribution wid th Auto (RBC) [Ratio]Ordered By: Sakshi Ojeda on 07-14-2023 Erythrocyte distribution width (RBC) [Ratio] 12.8 % 11.9-15.3 [facility] Glucose [Mass/volume] in Ser um or PlasmaOrdered By: Sakshi Ojeda on 07-14-2023 Glucose [Mass/Vol] 88 mg/dL 70-100 [facility] Comment on above: ADA recommended refe rence rangeRandom Glucose Reference Range is dependent on time and content of last meal. Glucose of more than 200 mg/dL in a nonstressed, ambulatory subject supports the diagnosis of Diabetes Mellitus. Hematocrit Auto (Bld) [Volum e fraction]Ordered By: Sakshi Ojeda on 07-14-2023 Hematocrit (Bld) [Volume fraction] 36.5 % 34.0-46.4 [facility] Hemoglobin [Mass/volume] in BloodOrdered By: Sakshi Ojeda on 07-14-2023 Hemoglobin (Bld) [Mass/Vol] 12.5 g/dL 11.8-15.4 [facility] Iron [Mass/volume] in Serum or PlasmaOrdered By: Sakshi Ojeda on 07-14-2023 Iron [Mass/Vol] 82 ug/dL 50-212 [facility] Iron binding capacity [Mass/ volume] in Serum or PlasmaOrdered By: Sakshi Ojeda on 07-14-2023 Iron binding capacity [Mass/Vol] 325 ug/dL 255-450 [facility] Iron saturation [Mass Fracti on] in Serum or PlasmaOrdered By: Sakshi Ojeda on 07-14-2023 Iron saturation [Mass fraction] 25.2 % 20-50 [facility] Leukocytes [#/volume] correc pauline for nucleated erythrocytes in Blood by Automated counOrdered By: Sakshi Ojeda on 07-14-2023 WBC corrected for nucl RBC Auto (Bld) [#/Vol] 5.4 10*3/uL 3.8-11.6 [facility] MCH Auto (RBC) [Entitic mass ]Ordered By: Sakshi Ojeda on 07-14-2023 MCH (RBC) [Entitic mass] 30.5 pg 24.7-34.3 [facility] MCHC Auto (RBC) [Mass/Vol]Or dered By: Sakshi Ojeda on 07-14-2023 MCHC (RBC) [Mass/Vol] 34.4 g/dL 32.0-35.[address] [facility] MCV Auto (RBC) [Entitic vol] Ordered By: Sakshi Ojeda on 07-14-2023 MCV (RBC) [Entitic vol] 88.8 fL 80-100 [facility] Magnesium [Mass/volume] in S elías or PlasmaOrdered By: Sakshi Ojeda on 07-14-2023 Magnesium [Mass/Vol] 2.0 mg/dL 1.9-2.7 [facility] No Panel InformationOrdered By: Sakshi Ojeda on 07-14-2023 Estimated GFR (CKD-EPI) 48.331 mL/Min [facility] Creatinine Clearance (Chem N/A [facility] Parathyrin.intact [Mass/volu me] in Serum or PlasmaOrdered By: Sakshi Ojeda on 07-14-2023 Parathyrin.intact [Mass/Vol] 59.3 pg/mL 12-88 [facility] Phosphate [Mass/volume] in S elías or PlasmaOrdered By: Sakshi Ojeda on 07-14-2023 Phosphate [Mass/Vol] 3.6 mg/dL 2.5-4.5 [facility] Platelet mean volume Auto (B ld) [Entitic vol]Ordered By: Sakshi Ojeda on 07-14-2023 Platelet mean volume (Bld) [Entitic vol] 8.9 fL 6.3-10.7 [facility] Platelets Auto (Bld) [#/Vol] Ordered By: Sakshi Ojeda on 07-14-2023 Platelets (Bld) [#/Vol] 253 10*3/uL 150-450 [facility] Potassium [Moles/volume] in Serum or PlasmaOrdered By: Sakshi Ojeda on 07-14-2023 Potassium [Moles/Vol] 3.3 mmol/L 3.5-5.[address] [facility] RBC Auto (Bld) [#/Vol]Ordere d By: Sakshi Ojeda on 07-14-2023 RBC (Bld) [#/Vol] 4.11 10*6/uL 3.60-5.00 [facility] Serum or plasma anion gap de terminationOrdered By: Sakshi Ojeda on 07-14-2023 Anion gap [Moles/Vol] 9.1 mmol/L 6.0-15.[address] [facility] Sodium [Moles/volume] in Ser um or PlasmaOrdered By: Sakshi Rusty on 07-14-2023 Sodium [Moles/Vol] 139 mmol/L 136-145 [facility] Transferrin [Mass/volume] in Serum or PlasmaOrdered By: Sakshi Ojeda on 07-14-2023 Transferrin [Mass/Vol] 232 mg/dL 203-362 [facility] Urate [Mass/volume] in Serum or PlasmaOrdered By: Sakshi Ojeda on 07-14-2023 Urate [Mass/Vol] 6.5 mg/dL 2.3-6.6 [facility] Urea nitrogen [Mass/volume] in Serum or PlasmaOrdered By: Sakshi Rusty on 07-14-2023 Urea nitrogen [Mass/Vol] 21 mg/dL 7-25 [facility] Vitamin D+Metabolites [Mass/ volume] in Serum or PlasmaOrdered By: Sakshi Rusty on 07-14-2023 Vitamin D+Metabolites [Mass/Vol] 78.7 ng/mL 30-100 [facility] Comment on above: VITAMIN D STATUS 25( [place])VITAMIN D RANGE (ng/mL) Deficient <20 Insufficient 20 to <30Sufficient 30 to 100Reference: Rafa MF,Julianna NC, Usama MENARD, et al. Evaluation,treatment, and prevention of vitamin D deficiency; an Endocrine Society clinical practice guideline. JCEM. 2010; 96(7):1911-30. Activated partial thrombopla stin time (aPTT) in platelet poor plasma by coagulation aOrdered By: Peewee Jackson on 06-18-2023 aPTT Coag (PPP) [Time] 27.1 s 25.1-36.5 [facility] Comment on above: A hematocrit value g reater than 55% may lead to inaccurate results in coagulation testing. Patients having hematocrit values >55% require a special collection tube for coagulation studies. Please contact the laboratory at [phone] for redraw instructions. Basophils Auto (Bld) [#/Vol] Ordered By: Peewee Jackson on 06-18-2023 Basophils (Bld) [#/Vol] 0.0 10*3/uL 0.0-0.2 [facility] Basophils/100 WBC Auto (Bld) Ordered By: Peewee Jackson on 06-18-2023 Basophils/100 WBC (Bld) 0.2 % . F [facility] Calcium [Mass/volume] in Ser um or PlasmaOrdered By: Peewee Jackson on 06-18-2023 Calcium [Mass/Vol] 9.4 mg/dL 8.6-10.3 [facility] Carbon dioxide, total [Moles /volume] in Serum or PlasmaOrdered By: Peewee Jackson on 06-18-2023 CO2 [Moles/Vol] 28.8 mmol/L 21.0-31.0 [facility] Chloride [Moles/volume] in S elías or PlasmaOrdered By: Peewee Jackson on 06-18-2023 Chloride [Moles/Vol] 104 mmol/L 98-107 [facility] Creatinine [Mass/volume] in Serum or PlasmaOrdered By: Peewee Jackson on 06-18-2023 Creatinine [Mass/Vol] 0.95 mg/dL 0.60-1.[address] [facility] Eosinophils Auto (Bld) [#/Vo l]Ordered By: Peewee Jackson on 06-18-2023 Eosinophils (Bld) [#/Vol] 0.0 10*3/uL 0.0-0.45 [facility] Eosinophils/100 WBC Auto (Bl d)Ordered By: Peewee Jackson on 06-18-2023 Eosinophils/100 WBC (Bld) 0.4 % . [facility] Erythrocyte distribution wid th Auto (RBC) [Ratio]Ordered By: Peewee Jackson on 06-18-2023 Erythrocyte distribution width (RBC) [Ratio] 12.4 % 11.9-15.3 [facility] Glucose [Mass/volume] in Ser um or PlasmaOrdered By: Peewee Jackson on 06-18-2023 Glucose [Mass/Vol] 90 mg/dL 70-100 [facility] Comment on above: ADA recommended refe rence rangeRandom Glucose Reference Range is dependent on time and content of last meal. Glucose of more than 200 mg/dL in a nonstressed, ambulatory subject supports the diagnosis of Diabetes Mellitus. Hematocrit Auto (Bld) [Volum e fraction]Ordered By: Peewee Jackson on 06-18-2023 Hematocrit (Bld) [Volume fraction] 33.8 % 34.0-46.4 [facility] Hemoglobin [Mass/volume] in BloodOrdered By: Peewee Jackson on 06-18-2023 Hemoglobin (Bld) [Mass/Vol] 11.5 g/dL 11.8-15.4 [facility] INR in Platelet poor plasma by Coagulation assayOrdered By: Peewee Jackson on 06-18-2023 INR Coag (PPP) [Relative time] 1.0 {INR} [facility] Comment on above: INR Therapeutic Rang e A) Pre- and Peroperative OAT started two weeks before surgery. NOT HIP SURGERY: 1.5 - 2.5 HIP SURGERY: 2 - 3B) Primary and secondary prevention of venous THROMBOSIS: 2 - 3C) Active venous thrombosis, pulmonary embolismand prevention of recurrent venous thrombosis: 2 - 3D) Prevention of arterial thromboembolismincluding patients with mechanical heart valves: 3 - 4.5 Leukocytes [#/volume] correc pauline for nucleated erythrocytes in Blood by Automated counOrdered By: Peewee Jackson on 06-18-2023 WBC corrected for nucl RBC Auto (Bld) [#/Vol] 6.2 10*3/uL 3.8-11.6 [facility] Lymphocytes Auto (Bld) [#/Vo l]Ordered By: Peewee Jackson on 06-18-2023 Lymphocytes (Bld) [#/Vol] 1.4 10*3/uL 1.00-4.8 [facility] Lymphocytes/100 WBC Auto (Bl d)Ordered By: Peewee Jackson on 06-18-2023 Lymphocytes/100 WBC (Bld) 22.6 % . [facility] MCH Auto (RBC) [Entitic mass ]Ordered By: Peewee Jackson on 06-18-2023 MCH (RBC) [Entitic mass] 30.2 pg 24.7-34.3 [facility] MCHC Auto (RBC) [Mass/Vol]Or dered By: Peewee Jackson on 06-18-2023 MCHC (RBC) [Mass/Vol] 34.0 g/dL 32.0-35.[address] [facility] MCV Auto (RBC) [Entitic vol] Ordered By: Peewee Jackson on 06-18-2023 MCV (RBC) [Entitic vol] 89.0 fL 80-100 [facility] Monocyte distribution width [Entitic volume] in Blood by AutomatedOrdered By: Peewee Jackson on 06-18-2023 Monocyte distribution width Auto (Bld) [Entitic vol] 15.92 % 0.00-20.00 [facility] Monocytes Auto (Bld) [#/Vol] Ordered By: Peewee Jackson on 06-18-2023 Monocytes (Bld) [#/Vol] 0.6 10*3/uL 0.0-0.8 [facility] Monocytes/100 WBC Auto (Bld) Ordered By: Peewee Jackson on 06-18-2023 Monocytes/100 WBC (Bld) 10.4 % . F [facility] Natriuretic peptide B [Mass/ Vol]Ordered By: Peewee Jackson on 06-18-2023 Natriuretic peptide B (Bld) [Mass/Vol] 377.0 pg/mL 5-100 [facility] Neutrophils Auto (Bld) [#/Vo l]Ordered By: Peewee Jackson on 06-18-2023 Neutrophils (Bld) [#/Vol] 4.1 10*3/uL 1.8-7.7 [facility] Neutrophils/100 WBC Auto (Bl d)Ordered By: Peewee Jackson on 06-18-2023 Neutrophils/100 WBC (Bld) 66.4 % . [facility] No Panel InformationOrdered By: Peewee Jackson on 06-18-2023 Estimated GFR (CKD-EPI) 57.628 mL/Min [facility] Creatinine Clearance (Chem 34.95 [facility] Nucleated erythrocytes [Pres ence] in Blood by Automated countOrdered By: Peewee Jackson on 06-18-2023 Nucleated RBC Auto Ql (Bld) 0.2 /100{WBC} 0-0.5 [facility] Platelet mean volume Auto (B ld) [Entitic vol]Ordered By: Peewee Jackson on 06-18-2023 Platelet mean volume (Bld) [Entitic vol] 9.5 fL 6.3-10.7 [facility] Platelets Auto (Bld) [#/Vol] Ordered By: Peewee Jackson on 06-18-2023 Platelets (Bld) [#/Vol] 156 10*3/uL 150-450 [facility] Potassium [Moles/volume] in Serum or PlasmaOrdered By: Peewee Jackson on 06-18-2023 Potassium [Moles/Vol] 3.9 mmol/L 3.5-5.[address] [facility] Prothrombin time (PT)Ordered By: Peewee Jackson on 06-18-2023 PT Coag (PPP) [Time] 11.5 s 9.0-12.9 [facility] Comment on above: A hematocrit value g reater than 55% may lead to inaccurate results in coagulation testing. Patients having hematocrit values >55% require a special collection tube for coagulation studies. Please contact the laboratory at [phone] for redraw instructions. RBC Auto (Bld) [#/Vol]Ordere d By: Peewee Jackson on 06-18-2023 RBC (Bld) [#/Vol] 3.80 10*6/uL 3.60-5.00 [facility] Serum or plasma anion gap de terminationOrdered By: Peewee Jackson on 06-18-2023 Anion gap [Moles/Vol] 10.1 mmol/L 6.0-15.0 [facility] Sodium [Moles/volume] in Ser um or PlasmaOrdered By: Peewee Jackson on 06-18-2023 Sodium [Moles/Vol] 139 mmol/L 136-145 [facility] Troponin I.cardiac [Mass/vol ume] in Serum or Plasma by Detection limit <= 0.01 ng/Ordered By: Peewee Jackson on 06-18-2023 Troponin I.cardiac DL <= 0.01 ng/mL [Mass/Vol] 17.2 pg/mL 0.0-15.0 [facility] Urea nitrogen [Mass/volume] in Serum or PlasmaOrdered By: Peewee Jackson on 06-18-2023 Urea nitrogen [Mass/Vol] 28 mg/dL 7-25 [facility] WBC Auto (Bld) [#/Vol]Ordere d By: Peewee Jackson on 06-18-2023 WBC (Bld) [#/Vol] 6.2 10*3/uL 3.8-11.6 [facility] Alanine aminotransferase [En zymatic activity/volume] in Serum or PlasmaOrdered By: Fan Elliott on 01-27-2023 ALT [Catalytic activity/Vol] 11 U/L 7-52 [facility] Basophils Auto (Bld) [#/Vol] Ordered By: Fan Elliott on 01-27-2023 Basophils (Bld) [#/Vol] 0.0 10*3/uL 0.0-0.2 [facility] Basophils/100 WBC Auto (Bld) Ordered By: Fan Elliott on 01-27-2023 Basophils/100 WBC (Bld) 0.7 % . F [facility] Calcium [Mass/volume] in Ser um or PlasmaOrdered By: Fan Elliott on 01-27-2023 Calcium [Mass/Vol] 9.4 mg/dL 8.6-10.3 [facility] Carbon dioxide, total [Moles /volume] in Serum or PlasmaOrdered By: Fan Elliott on 01-27-2023 CO2 [Moles/Vol] 33.5 mmol/L 21.0-31.0 [facility] Chloride [Moles/volume] in S elías or PlasmaOrdered By: Fan Elliott on 01-27-2023 Chloride [Moles/Vol] 104 mmol/L 98-107 [facility] Cholesterol [Mass/volume] in Serum or PlasmaOrdered By: Fan Elliott on 01-27-2023 Cholesterol [Mass/Vol] 178 mg/dL 140-200 [facility] Comment on above: Chol less than 200 m g/dl low riskChol 201-239 mg/dl borderline riskChol 240 mg/dl and greater high risk Cholesterol in LDL Calc [Mas s/Vol]Ordered By: Fan Elliott on 01-27-2023 Cholesterol in LDL [Mass/Vol] 97 mg/dL 0-100 [facility] Comment on above: LDL ATP III CLASSIFI CATIONLDL less than 100 mg/dL OptimalLDL 100-129 mg/dL Near or above optimalLDL 130-159 mg/dL Borderline highLDL 160-189 mg/dL HighLDL greater than 189 mg/dL Very high Cholesterol in VLDL Calc [Ma ss/Vol]Ordered By: Fan Elliott on 01-27-2023 Cholesterol in VLDL [Mass/Vol] 14 mg/dL [facility] Creatinine [Mass/volume] in Serum or PlasmaOrdered By: Fan Elliott on 01-27-2023 Creatinine [Mass/Vol] 1.17 mg/dL 0.60-1.[address] [facility] Eosinophils Auto (Bld) [#/Vo l]Ordered By: Fan Elliott on 01-27-2023 Eosinophils (Bld) [#/Vol] 0.2 10*3/uL 0.0-0.45 [facility] Eosinophils/100 WBC Auto (Bl d)Ordered By: Fan Elliott on 01-27-2023 Eosinophils/100 WBC (Bld) 4.7 % . [facility] Erythrocyte distribution wid th Auto (RBC) [Ratio]Ordered By: Fan Elliott on 01-27-2023 Erythrocyte distribution width (RBC) [Ratio] 12.6 % 11.9-15.3 [facility] Glucose [Mass/volume] in Ser um or PlasmaOrdered By: Fan Elliott on 01-27-2023 Glucose [Mass/Vol] 87 mg/dL 70-100 [facility] Comment on above: ADA recommended refe rence rangeRandom Glucose Reference Range is dependent on time and content of last meal. Glucose of more than 200 mg/dL in a nonstressed, ambulatory subject supports the diagnosis of Diabetes Mellitus. Hematocrit Auto (Bld) [Volum e fraction]Ordered By: Fan Elliott on 01-27-2023 Hematocrit (Bld) [Volume fraction] 34.6 % 34.0-46.4 [facility] Hemoglobin [Mass/volume] in BloodOrdered By: Fan Elliott on 01-27-2023 Hemoglobin (Bld) [Mass/Vol] 11.9 g/dL 11.8-15.4 [facility] Leukocytes [#/volume] correc pauline for nucleated erythrocytes in Blood by Automated counOrdered By: Fan Elliott on 01-27-2023 WBC corrected for nucl RBC Auto (Bld) [#/Vol] 4.9 10*3/uL 3.8-11.6 [facility] Lymphocytes Auto (Bld) [#/Vo l]Ordered By: Fan Elliott on 01-27-2023 Lymphocytes (Bld) [#/Vol] 1.6 10*3/uL 1.00-4.8 [facility] Lymphocytes/100 WBC Auto (Bl d)Ordered By: Fan Elliott on 01-27-2023 Lymphocytes/100 WBC (Bld) 33.6 % . [facility] MCH Auto (RBC) [Entitic mass ]Ordered By: Fan Elliott on 01-27-2023 MCH (RBC) [Entitic mass] 31.1 pg 24.7-34.3 [facility] MCHC Auto (RBC) [Mass/Vol]Or dered By: Fan Elliott on 01-27-2023 MCHC (RBC) [Mass/Vol] 34.4 g/dL 32.0-35.0 [facility] MCV Auto (RBC) [Entitic vol] Ordered By: Fan Elliott on 01-27-2023 MCV (RBC) [Entitic vol] 90.5 fL 80-100 [facility] Monocytes Auto (Bld) [#/Vol] Ordered By: Fan Elliott on 01-27-2023 Monocytes (Bld) [#/Vol] 0.4 10*3/uL 0.0-0.8 [facility] Monocytes/100 WBC Auto (Bld) Ordered By: Fan Elliott on 01-27-2023 Monocytes/100 WBC (Bld) 7.7 % . [facility] Neutrophils Auto (Bld) [#/Vo l]Ordered By: Fan Elliott on 01-27-2023 Neutrophils (Bld) [#/Vol] 2.6 10*3/uL 1.8-7.7 [facility] Neutrophils/100 WBC Auto (Bl d)Ordered By: Fan Elliott on 01-27-2023 Neutrophils/100 WBC (Bld) 53.3 % . [facility] No Panel InformationOrdered By: Fan Elliott on 01-27-2023 Estimated GFR (CKD-EPI) 45.163 mL/Min [facility] Creatinine Clearance (Chem N/A [facility] Nucleated erythrocytes [Pres ence] in Blood by Automated countOrdered By: Fan Elliott on 01-27-2023 Nucleated RBC Auto Ql (Bld) 0.3 /100{WBC} 0-0.5 [facility] Platelet mean volume Auto (B ld) [Entitic vol]Ordered By: Fan Elliott on 01-27-2023 Platelet mean volume (Bld) [Entitic vol] 9.4 fL 6.3-10.7 [facility] Platelets Auto (Bld) [#/Vol] Ordered By: Fan Elliott on 01-27-2023 Platelets (Bld) [#/Vol] 184 10*3/uL 150-450 [facility] Potassium [Moles/volume] in Serum or PlasmaOrdered By: Fan Elliott on 01-27-2023 Potassium [Moles/Vol] 3.9 mmol/L 3.5-5.[address] [facility] RBC Auto (Bld) [#/Vol]Ordere d By: Fan Elliott on 01-27-2023 RBC (Bld) [#/Vol] 3.82 10*6/uL 3.60-5.00 [facility] Serum or plasma anion gap de terminationOrdered By: Fan Elliott on 01-27-2023 Anion gap [Moles/Vol] 8.4 mmol/L 6.0-15.[address] [facility] Serum or plasma high density lipoprotein (HDL) cholesterol measurementOrdered By: Fan Elliott on 01-27-2023 Cholesterol in HDL [Mass/Vol] 67 mg/dL 35-85 [facility] Comment on above: HDL CHOL ATP-III CLA SSIFICATION Cardiovascular RiskHDL > or equal to 60 mg/dL LOWHDL < 40 mg/dL HIGH Serum or plasma total choles terol/high density lipoprotein (HDL) cholesterol mass ratOrdered By: Fan Elliott on 01-27-2023 Cholesterol.total/Vilma sterol in HDL [Mass ratio] 2.7 {ratio} <5.0 [facility] Sodium [Moles/volume] in Ser um or PlasmaOrdered By: Fan Elliott on 01-27-2023 Sodium [Moles/Vol] 142 mmol/L 136-145 [facility] Thyrotropin [Units/volume] i n Serum or PlasmaOrdered By: Fan Elliott on 01-27-2023 TSH Qn 0.86 m[IU]/L 0.45-5.33 [facility] Thyroxine (T4) free [Mass/vo lume] in Serum or PlasmaOrdered By: Fan Elliott on 01-27-2023 Free T4 [Mass/Vol] 1.26 ng/dL 0.61-1.12 [facility] Triglyceride [Mass/volume] i n Serum or PlasmaOrdered By: Fan Elliott on 01-27-2023 Triglyceride [Mass/Vol] 71 mg/dL 0-149 [facility] Comment on above: TRIG ATP III CLASSIF ICATIONTRIG less than 150 mg/dL NormalTRIG 150-199 mg/dL Borderline highTRIG 200-500 mg/dL High TRIG greater than 500 mg/dL Very highStandard traceable to the Center for Disease Conrtrol and Prevention (CDC) test method. Urea nitrogen [Mass/volume] in Serum or PlasmaOrdered By: Fan Elliott on 01-27-2023 Urea nitrogen [Mass/Vol] 35 mg/dL 7 [facility] WBC Auto (Bld) [#/Vol]Ordere d By: Fan Elliott on 01-27-2023 WBC (Bld) [#/Vol] 4.9 10*3/uL 3.8-11.6 [facility] Potassium [Moles/volume] in Serum or PlasmaOrdered By: Fan Elliott on 12-08-2022 Potassium [Moles/Vol] 3.6 mmol/L 3.5-5.[address] [facility] Activated partial thrombopla stin time (aPTT) in platelet poor plasma by coagulation aOrdered By: Ny Whitaker on 11-19-2022 aPTT Coag (PPP) [Time] 28.0 s 25.1-36.5 [facility] Basophils Auto (Bld) [#/Vol] Ordered By: Ny Whitaker on 11-19-2022 Basophils (Bld) [#/Vol] 0.0 10*3/uL 0.0-0.2 [facility] Basophils/100 WBC Auto (Bld) Ordered By: Ny Whitaekr on 11-19-2022 Basophils/100 WBC (Bld) 0.4 % . F [facility] Bilirubin Test strip Ql (U)O rdered By: Ny Whitaker on 11-19-2022 Bilirubin Ql (U) Negative Negative [facility] Calcium [Mass/volume] in Ser um or PlasmaOrdered By: Ny Whitaker on 11-19-2022 Calcium [Mass/Vol] 9.0 mg/dL 8.6-10.3 [facility] Carbon dioxide, total [Moles /volume] in Serum or PlasmaOrdered By: Ny Whitaker on 11-19-2022 CO2 [Moles/Vol] 31.2 mmol/L 21.0-31.0 [facility] Chloride [Moles/volume] in S elías or PlasmaOrdered By: Ny Whitaker on 11-19-2022 Chloride [Moles/Vol] 103 mmol/L 98-107 [facility] Color Auto (U)Ordered By: Ja Whitaker on 11-19-2022 Color (U) Yellow Yellow [facility] Creatinine [Mass/volume] in Serum or PlasmaOrdered By: Ny Whitaker on 11-19-2022 Creatinine [Mass/Vol] 1.21 mg/dL 0.60-1.[address] [facility] Eosinophils Auto (Bld) [#/Vo l]Ordered By: Ny Whitaker on 11-19-2022 Eosinophils (Bld) [#/Vol] 0.1 10*3/uL 0.0-0.45 [facility] Eosinophils/100 WBC Auto (Bl d)Ordered By: Ny Whitaker on 11-19-2022 Eosinophils/100 WBC (Bld) 2.5 % . [facility] Erythrocyte distribution wid th Auto (RBC) [Ratio]Ordered By: Ny Whitaker on 11-19-2022 Erythrocyte distribution width (RBC) [Ratio] 13.1 % 11.9-15.3 [facility] Glucose [Mass/volume] in Ser um or PlasmaOrdered By: Ny Whitaker on 11-19-2022 Glucose [Mass/Vol] 93 mg/dL 74-109 [facility] Comment on above: ADA recommended refe rence rangeRandom Glucose Reference Range is dependent on time and content of last meal. Glucose of more than 200 mg/dL in a nonstressed, ambulatory subject supports the diagnosis of Diabetes Mellitus. Hematocrit Auto (Bld) [Volum e fraction]Ordered By: Ny Whitaker on 11-19-2022 Hematocrit (Bld) [Volume fraction] 32.9 % 34.0-46.4 [facility] Hemoglobin [Mass/volume] in BloodOrdered By: Ny Whitaker on 11-19-2022 Hemoglobin (Bld) [Mass/Vol] 11.4 g/dL 11.8-15.4 [facility] Ketones Auto test strip (U) [Mass/Vol]Ordered By: Ny Whitaker on 11-19-2022 Ketones (U) [Mass/Vol] Negative Negative [facility] and C hemistry - challengeOrdered By: Ny Whitaker on 11-19-2022 GFR/1.73 sq M.predicted MDRD (S/P/Bld) [Vol rate/Area] 43.377 mL/min/{1.73_m2} [facility] Laboratory - CoagulationOrde red By: Ny Whitaker on 11-19-2022 PT Coag (PPP) [Time] 11.5 s 9.0-12.9 [facility] Lactate [Moles/volume] in Se rum or PlasmaOrdered By: Ny Whitaker on 11-19-2022 Lactate [Moles/Vol] 0.8 mmol/L 0.5-2.2 [facility] Leukocytes [#/volume] correc pauline for nucleated erythrocytes in Blood by Automated counOrdered By: Ny Whitaker on 11-19-2022 WBC corrected for nucl RBC Auto (Bld) [#/Vol] 5.7 10*3/uL 3.8-11.6 [facility] Lipase [Enzymatic activity/v olume] in Serum or PlasmaOrdered By: Ny Whitaker on 11-19-2022 Lipase [Catalytic activity/Vol] 18.0 U/L 11.0-82.0 [facility] Lymphocytes Auto (Bld) [#/Vo l]Ordered By: Ny Whitaker on 11-19-2022 Lymphocytes (Bld) [#/Vol] 1.5 10*3/uL 1.00-4.8 [facility] Lymphocytes/100 WBC Auto (Bl d)Ordered By: Ny Whitaker on 11-19-2022 Lymphocytes/100 WBC (Bld) 25.8 % . [facility] MCH Auto (RBC) [Entitic mass ]Ordered By: Ny Whitaker on 11-19-2022 MCH (RBC) [Entitic mass] 31.3 pg 24.7-34.3 [facility] MCHC Auto (RBC) [Mass/Vol]Or dered By: Ny Whitaker on 11-19-2022 MCHC (RBC) [Mass/Vol] 34.5 g/dL 32.0-35.[address] [facility] MCV Auto (RBC) [Entitic vol] Ordered By: Ny Whitaker on 11-19-2022 MCV (RBC) [Entitic vol] 90.8 fL 80-100 [facility] Magnesium [Mass/volume] in S elías or PlasmaOrdered By: Ny Whitaker on 11-19-2022 Magnesium [Mass/Vol] 2.0 mg/dL 1.9-2.7 [facility] Monocyte distribution width [Entitic volume] in Blood by AutomatedOrdered By: Ny Whitaker on 11-19-2022 Monocyte distribution width Auto (Bld) [Entitic vol] 17.40 % 0.00-20.00 [facility] Monocytes Auto (Bld) [#/Vol] Ordered By: Ny Whitaker on 11-19-2022 Monocytes (Bld) [#/Vol] 0.5 10*3/uL 0.0-0.8 [facility] Monocytes/100 WBC Auto (Bld) Ordered By: Ny Whitaker on 11-19-2022 Monocytes/100 WBC (Bld) 7.9 % . [facility] Neutrophils Auto (Bld) [#/Vo l]Ordered By: Ny Whitaker on 11-19-2022 Neutrophils (Bld) [#/Vol] 3.6 10*3/uL 1.8-7.7 [facility] Neutrophils/100 WBC Auto (Bl d)Ordered By: Ny Whitaker on 11-19-2022 Neutrophils/100 WBC (Bld) 63.4 % . [facility] Nitrite Test strip Ql (U)Ord ered By: Ny Whitaker on 11-19-2022 Nitrite Ql (U) Negative Negative [facility] No Panel InformationOrdered By: Ny Whitaker on 11-19-2022 Pharmacy Creatinine Clearance (Chem 28.30 [facility] Nucleated erythrocytes [Pres ence] in Blood by Automated countOrdered By: Ny Whitaker on 11-19-2022 Nucleated RBC Auto Ql (Bld) 0.2 /100{WBC} 0-0.5 [facility] Platelet mean volume Auto (B ld) [Entitic vol]Ordered By: Ny Whitaker on 11-19-2022 Platelet mean volume (Bld) [Entitic vol] 9.4 fL 6.3-10.7 [facility] Platelet poor plasma interna tional normalized ratio (INR) by coagulation assay (relatOrdered By: Ny Whitaker on 11-19-2022 INR Coag (PPP) [Relative time] 1.0 {INR} [facility] Comment on above: INR Therapeutic Rang e A) Pre- and Peroperative OAT started two weeks before surgery. NOT HIP SURGERY: 1.5 - 2.5 HIP SURGERY: 2 - 3B) Primary and secondary prevention of venous THROMBOSIS: 2 - 3C) Active venous thrombosis, pulmonary embolismand prevention of recurrent venous thrombosis: 2 - 3D) Prevention of arterial thromboembolismincluding patients with mechanical heart valves: 3 - 4.5 Platelets Auto (Bld) [#/Vol] Ordered By: Ny Whitaker on 11-19-2022 Platelets (Bld) [#/Vol] 142 10*3/uL 150-450 [facility] Potassium [Moles/volume] in Serum or PlasmaOrdered By: Ny Whitaker on 11-19-2022 Potassium [Moles/Vol] 3.2 mmol/L 3.5-5.[address] [facility] Protein Auto test strip (U) [Mass/Vol]Ordered By: Ny Whitaker on 11-19-2022 Protein (U) [Mass/Vol] Negative Negative Fi [facility] RBC Auto (Bld) [#/Vol]Ordere d By: Ny Whitaker on 11-19-2022 RBC (Bld) [#/Vol] 3.62 10*6/uL 3.60-5.00 [facility] Serum or plasma anion gap de terminationOrdered By: Ny Whitaker on 11-19-2022 Anion gap [Moles/Vol] 8.0 mmol/L 6.0-15.[address] [facility] Sodium [Moles/volume] in Ser um or PlasmaOrdered By: Ny Whitaker on 11-19-2022 Sodium [Moles/Vol] 139 mmol/L 136-145 [facility] Specific gravity Auto test s trip (U) [Rel density]Ordered By: Ny Whitaker on 11-19-2022 Specific gravity (U) [Rel density] 1.014 1.001-1.03 0 [facility] Urea nitrogen [Mass/volume] in Serum or PlasmaOrdered By: Ny Whitaker on 11-19-2022 Urea nitrogen [Mass/Vol] 22 mg/dL 7-25 [facility] Urine clarity by refractomet ry automatedOrdered By: Ny Whitaker on 11-19-2022 Clarity Refractometry automated (U) Clear Clear [facility] Urine glucose measurement by automated test strip (mass/volume)Ordered By: Ny Whitaker on 11-19-2022 Glucose Auto test strip (U) [Mass/Vol] Normal mg/dL Normal [facility] Urine hemoglobin detection b y automated test stripOrdered By: Ny Whitaker on 11-19-2022 Hemoglobin Auto test strip Ql (U) Negative Negative [facility] Urine leukocyte esterase det ection by automated test stripOrdered By: Ny Whitaker on 11-19-2022 Leukocyte esterase Auto test strip Ql (U) Negative Negative [facility] Urobilinogen Auto test strip (U) [Mass/Vol]Ordered By: Ny Whitaker on 11-19-2022 Urobilinogen (U) [Mass/Vol] Normal mg/dL Normal [facility] WBC Auto (Bld) [#/Vol]Ordere d By: Ny Whitaker on 11-19-2022 WBC (Bld) [#/Vol] 5.7 10*3/uL 3.8-11.6 [facility] pH Auto test strip (U)Ordere d By: Ny Whitaker on 11-19-2022 pH (U) 6.5 [pH] 5.0-9.0 [facility] Cholesterol [Mass/volume] in Serum or PlasmaOrdered By: Fan Elliott on 07-31-2022 Cholesterol [Mass/Vol] 185 mg/dL 140-[address] [facility] Comment on above: Chol less than 200 m g/dl low riskChol 201-239 mg/dl borderline riskChol 240 mg/dl and greater high risk Cholesterol in LDL Calc [Mas s/Vol]Ordered By: Fan Elliott on 07-31-2022 Cholesterol in LDL [Mass/Vol] 100 mg/dL 0-100 [facility] Comment on above: LDL ATP III CLASSIFI CATIONLDL less than 100 mg/dL OptimalLDL 100-129 mg/dL Near or above optimalLDL 130-159 mg/dL Borderline highLDL 160-189 mg/dL HighLDL greater than 189 mg/dL Very high Cholesterol in VLDL Calc [Ma ss/Vol]Ordered By: Fan Elliott on 07-31-2022 Cholesterol in VLDL [Mass/Vol] 17 mg/dL [facility] Serum or plasma high density lipoprotein (HDL) cholesterol measurementOrdered By: Fan Elliott on 07-31-2022 Cholesterol in HDL [Mass/Vol] 68 mg/dL 35-85 [facility] Comment on above: HDL CHOL ATP-III CLA SSIFICATION Cardiovascular RiskHDL > or equal to 60 mg/dL LOWHDL < 40 mg/dL HIGH Serum or plasma total choles terol/high density lipoprotein (HDL) cholesterol mass ratOrdered By: Fan Elliott on 07-31-2022 Cholesterol.total/Vilma sterol in HDL [Mass ratio] 2.7 {ratio} <5.0 [facility] Triglyceride [Mass/volume] i n Serum or PlasmaOrdered By: Fan Elliott on 07-31-2022 Triglyceride [Mass/Vol] 85 mg/dL 35-149 F [facility] Comment on above: TRIG ATP III CLASSIF ICATIONTRIG less than 150 mg/dL NormalTRIG 150-199 mg/dL Borderline highTRIG 200-500 mg/dL High TRIG greater than 500 mg/dL Very highStandard traceable to the Center for Disease Conrtrol and Prevention (CDC) test method. Albumin [Mass/volume] in Ser um or PlasmaOrdered By: Celina Lee on 06-26-2022 Albumin [Mass/Vol] 3.8 g/dL 3.2-5.5 [facility] Basophils Auto (Bld) [#/Vol] Ordered By: Sam Machado on 06-26-2022 Basophils (Bld) [#/Vol] 0.0 10*3/uL 0.0-0.2 [facility] Basophils/100 WBC Auto (Bld) Ordered By: Sam Machado on 06-26-2022 Basophils/100 WBC (Bld) 0.7 % . F [facility] Creatinine and Glomerular fi ltration rate.predicted panel (S/P/Bld)Ordered By: Celina Lee on 06-26-2022 Creatinine [Mass/Vol] 1.27 mg/dL 0.44-1.[address] [facility] Eosinophils Auto (Bld) [#/Vo l]Ordered By: Sam Machado on 06-26-2022 Eosinophils (Bld) [#/Vol] 0.2 10*3/uL 0.0-0.45 [facility] Eosinophils/100 WBC Auto (Bl d)Ordered By: Sam Machado on 06-26-2022 Eosinophils/100 WBC (Bld) 3.9 % . [facility] Erythrocyte distribution wid th Auto (RBC) [Ratio]Ordered By: Sam Machado on 06-26-2022 Erythrocyte distribution width (RBC) [Ratio] 12.5 % 11.9-15.3 [facility] Estimated glomerular filtrat ion rate (GFR) non- AmericanOrdered By: Celina Lee on 06-26-2022 GFR/1.73 sq M.predicted among non-blacks MDRD (S/P/Bld) [Vol rate/Area] 40 mL/Min [facility] Globulin Calc (S) [Mass/Vol] Ordered By: Celina Lee on 06-26-2022 Globulin (S) [Mass/Vol] 1.9 g/dL F [facility] Hematocrit Auto (Bld) [Volum e fraction]Ordered By: Sam Machado on 06-26-2022 Hematocrit (Bld) [Volume fraction] 35.6 % 34.0-46.4 [facility] Hemoglobin [Mass/volume] in BloodOrdered By: Sam Machado on 06-26-2022 Hemoglobin (Bld) [Mass/Vol] 11.8 g/dL 11.8-15.4 [facility] Laboratory - Hematology and Cell countsOrdered By: Sam Machado on 06-26-2022 Nucleated RBC/100 WBC (Bld) [Ratio] 0.2 % 0-0.5 [facility] Leukocytes [#/volume] in Blo od by Automated countOrdered By: Sam Machado on 06-26-2022 WBC (Bld) [#/Vol] 5.3 10*3/uL 4.5-11.0 [facility] Lymphocytes Auto (Bld) [#/Vo l]Ordered By: Sam Machado on 06-26-2022 Lymphocytes (Bld) [#/Vol] 1.4 10*3/uL 1.00-4.8 [facility] Lymphocytes/100 WBC Auto (Bl d)Ordered By: Sam Machado on 06-26-2022 Lymphocytes/100 WBC (Bld) 25.9 % . [facility] MCH Auto (RBC) [Entitic mass ]Ordered By: Sam Machado on 06-26-2022 MCH (RBC) [Entitic mass] 30.3 pg 24.7-34.3 [facility] MCHC Auto (RBC) [Mass/Vol]Or dered By: Sam Machado on 06-26-2022 MCHC (RBC) [Mass/Vol] 33.3 g/dL 32.0-35.[address] [facility] MCV Auto (RBC) [Entitic vol] Ordered By: Sam Machado on 06-26-2022 MCV (RBC) [Entitic vol] 91.1 fL 80-100 F [facility] Monocytes Auto (Bld) [#/Vol] Ordered By: Sam Machado on 06-26-2022 Monocytes (Bld) [#/Vol] 0.4 10*3/uL 0.0-0.8 [facility] Monocytes/100 WBC Auto (Bld) Ordered By: Sam Machado on 06-26-2022 Monocytes/100 WBC (Bld) 8.4 % . [facility] Neutrophils Auto (Bld) [#/Vo l]Ordered By: Sam Machado on 06-26-2022 Neutrophils (Bld) [#/Vol] 3.2 10*3/uL 1.8-7.7 [facility] Neutrophils/100 WBC Auto (Bl d)Ordered By: Sam Machado on 06-26-2022 Neutrophils/100 WBC (Bld) 61.1 % . [facility] No Panel InformationOrdered By: Celina Lee on 06-26-2022 Estimated GFR () 48 mL/Min [facility] Comment on above: GFR estimated refere nce range: According to KDOQI guidelines, <60 ml/min/1.73m2 is sufficient to diagnose a patient with chronic kidney disease. Pharmacy Creatinine Clearance (Chem N/A [facility] No Panel Informationon 06-26 1.13\S\1.13 Normal 0.45-5.33 [facility] Work Phone: Comment on above: PERFORMED BY:[place] [address] [place] [phone] MEDICAL DIRECTORFORMERLY [facility] Dev 0.0\S\0.0 Normal 0.0-0.2 [facility] Work Phone: Comment on above: PERFORMED BY:[place] [address] [address] [place], [place] [phone] MEDICAL DIRECTORFORMERLY [facility] Yanelis.Vane 0.2\S\0.2 Normal 0-0.5 [facility] DO Work Phone: 0.4\S\0.4 Normal 0.0-0.8 [facility] DO Work Phone: 1.4\S\1.4 Normal 1.00-4.8 [facility] DO Work Phone: 3.2\S\3.2 Normal 1.8-7.7 [facility] DO Work Phone: 0.7\S\0.7 Normal . [facility] DO Work Phone: 3.9\S\3.9 Normal . [facility] [address] DO Work Phone: [phone] 8.4\S\8.4 Normal . [facility] DO Work Phone: 25.9\S\25.9 Normal . [facility] DO Work Phone: [phone] 61.1\S\61.1 Normal . [facility] DO Work Phone: 9.2\S\9.2 Normal 6.3-10.7 [facility] DO Work Phone: [phone] 224\S\224 Normal 150-450 [facility] DO Work Phone: [phone] 12.5\S\12.5 Normal 11.9-15.3 [facility] DO Work Phone: 33.3\S\33.3 Normal 32.0-35.0 [facility] [address] DO Work Phone: [phone] 30.3\S\30.3 Normal 24.7-34.3 [facility] DO Work Phone: 91.1\S\91.1 Normal 80-100 [facility] DO Work Phone: [phone] 35.6\S\35.6 Normal 34.0-46.4 [facility] [address] DO Work Phone: [phone] 11.8\S\11.8 Normal 11.8-15.4 [facility] DO Work Phone: 3.90\S\3.90 Normal 3.60-5.00 -[facility] DO Work Phone: 5.3\S\5.3 Normal 3.8-11.6 -[facility] [address] DO Work Phone: Office Visit (Cardiology)on 06-26-2022 Follow-up visit Diagnoses/Problems Assessed 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) Paroxysmal SVT (supraventricular tachycardia) (427.0) (I47.1) Essential hypertension, benign (401.1) (I10) Hyperlipidemia (272.4) (E78.5) Anemia, unspecified type (285.9) (D64.9) Hypothyroidism (244.9) (E03.9) Former smoker (V15.82) (Z87.891) Overweight with body mass index (BMI) of 26 to 26.9 in adult (278.02,V85.22) (E66.3,Z68.26) Rheumatoid arthritis (714.0) (M06.9) Orders Anemia, unspecified type, PMH: History of shortness of breath, Paroxysmal SVT (supraventricular tachycardia) Complete Blood Count; Status:Active - Retrospective Authorization; Requested for:[id number]; Essential hypertension, benign, Paroxysmal SVT (supraventricular tachycardia) Renew: Carvedilol 6.25 MG Oral Tablet; Take one tablet in the morning and 2 tablets in the evening Hypothyroidism TSH - Thyroid Stimulating Hormone, Serum; Status:Active - Retrospective Authorization; Requested for:[id number]; Overweight with body mass index (BMI) of 26 to 26.9 in adult Healthy Weight Tips; Status:Complete - Retrospective Authorization; Done: 26Jun2022 Some eating tips that can help you lose weight.; Status:Complete - Retrospective Authorization; Done: [id number] SocHx: Former smoker Tobacco Use Screening; Status:Complete; Done: [id number] Patient Instructions Please bring all medicines, vitamins, and herbal supplements with you when you come to the office. Prescriptions will not be filled unless you are compliant with your follow up appointments or have a follow up appointment scheduled as per instruction of your physician. Refills should be requested at the time of your visit. Patient provided Falls Prevention education sheet. Follow up in 1 year. Chief Complaint ANA EDWARDS is being seen for an annual follow-up of. Patient is in the office for follow-up for the problems noted below. Since her last visit she has not had any episode of tachyarrhythmias. She denies any palpitations. Her blood pressure is under control. Her lipids have been followed and have been under control as well. Patient lost 20 pounds since her last visit on purpose. Patient has anemia and has been evaluated by hematology but did not have any endoscopies. She never received blood transfusion hemoglobin was down to 8.7 back in December 2021. It is up to just under 11 at this time. She is not anticoagulated. Denies orthopnea PND lower extremity edema. Has no symptoms of fatigue. ASSESSMENT AND PLAN: 1. Supraventricular tachycardia with no recurrences, on beta-cheryl therapy. Along with magnesium oxide. 2. Premature atrial contractions, suppressed by beta-cheryl therapy and remains asymptomatic. Magnesium oxide help suppress PACs as well 3. Hypertension, under control on beta chreyl, hydrochlorothiazide. 4. Slight overweight. The patient lost 20 pounds on purpose in the last several month. She is very close to target BMI. 5. Hyperlipidemia, under control, on Zetia. 6. Hypothyroidism, under control, on replacement therapy. 7. Rheumatoid arthritis, under control on Plaquenil. 8. At risk for falls, education provided 9. Anemia of unknown cause, she follows with hematology. She has no active bleeding followup will be scheduled in 1 year Sam Machado MD, [facility] Past Medical History Problems History of shortness of breath (V13.89) (Z87.898) Resolved Date: 26 Jun 2022 Current Meds Medication NameInstruction Carvedilol 6.25 MG Oral TabletTake one tablet in the morning and 2 tablets in the evening [facility] Calcium 600 MG Oral TabletTAKE 2 TABLET Daily Cyclobenzaprine HCl - 5 MG Oral TabletTAKE 1 TABLET AT BEDTIME. Ezetimibe 10 MG Oral TabletTake 1 tablet daily Furosemide 20 MG Oral TabletTAKE 1 TABLET EVERY OTHER DAY hydroCHLOROthiazide 25 MG Oral TabletTAKE 1 TABLET DAILY. Hydroxychloroquine Sulfate 200 MG Oral TabletTAKE 1 TABLET DAILY. Levothyroxine Sodium 75 MCG Oral TabletTAKE 1 TABLET DAILY. Magnesium 400 MG Oral Tablet1 daily Probiotic CAPSUSE DIRECTED. Vitamin D3 [id number] mg daily Allergies Medication Penicillins Hives;; Recorded By: Jannie Spaulding; 06/26/2021 10:41:47 AM Anna CHENG TABS Recorded By: Jannie Spaulding; 06/26/2021 10:41:47 AM Social History Problems Daily caffeine consumption Former smoker (V15.82) (Z87.891) No illicit drug use Rarely consumes alcohol (V49.89) (Z78.9) Review of Systems Constitutional: not feeling tired. Cardiovascular: no intermittent leg claudication and as noted in HPI. Respiratory: no cough and no shortness of breath. Gastrointestinal: no change in bowel habits and no blood in stools. Integumentary: no skin rashes. Neurological: no seizures and no frequent falls. All other systems have been reviewed and are negative for complaint. Vitals Vital Signs Recorded: 26Jun2022 09:23AM Heart Rate72, L Radial [id number], LUE, Sitting [id number], LUE, Sitting Height5 ft 1 in [id number] lb BMI Ca (more content not included)... Normal [facility] Platelet mean volume Auto (B ld) [Entitic vol]Ordered By: Sam Machado on 06-26-2022 Platelet mean volume (Bld) [Entitic vol] 9.2 fL 6.3-10.7 [facility] Platelets Auto (Bld) [#/Vol] Ordered By: Sma Machado on 06-26-2022 Platelets (Bld) [#/Vol] 224 10*3/uL 150-450 [facility] Protein [Mass/volume] in Ser um or PlasmaOrdered By: Celina Lee on 06-26-2022 Protein [Mass/Vol] 5.7 g/dL 6.1-7.9 [facility] RBC Auto (Bld) [#/Vol]Ordere d By: Sam Machado on 06-26-2022 RBC (Bld) [#/Vol] 3.90 10*6/uL 3.60-5.00 [facility] Serum or plasma alanine vazquez otransferase measurement without P-5'-P (enzymatic activiOrdered By: Celina Lee on 06-26-2022 ALT No additional P-5'-P [Catalytic activity/Vol] 17 U/L 10-60 [facility] Serum or plasma albumin/glob ulin mass ratioOrdered By: Celina Lee on 06-26-2022 Albumin/Globulin [Mass ratio] 2.0 {ratio} [facility] Serum or plasma alkaline shira sphatase measurement (enzymatic activity/volume)Ordered By: Celina Lee on 06-26-2022 ALP [Catalytic activity/Vol] 45 U/L 32-92 [facility] Serum or plasma anion gap de terminationOrdered By: Celina Lee on 06-26-2022 Anion gap [Moles/Vol] 16.0 mmol/L 6.0-15.0 [facility] Serum or plasma aspartate am inotransferase measurement (enzymatic activity/volume)Ordered By: Celina Lee on 06-26-2022 AST [Catalytic activity/Vol] 24 U/L 10 [facility] Serum or plasma calcium clif urement (mass/volume)Ordered By: Celina Lee on 06-26-2022 Calcium [Mass/Vol] 9.7 mg/dL 8.2-10.2 [facility] Serum or plasma chloride vítcor surement (moles/volume)Ordered By: Celina Lee on 06-26-2022 Chloride [Moles/Vol] 97 mmol/L 95-114 [facility] Serum or plasma glucose clif urement (mass/volume)Ordered By: Celina Lee on 06-26-2022 Glucose [Mass/Vol] 93 mg/dL 70-100 [facility] Comment on above: ADA recommended refe rence rangeRandom Glucose Reference Range is dependent on time and content of last meal. Glucose of more than 200 mg/dL in a nonstressed, ambulatory subject supports the diagnosis of Diabetes Mellitus. Serum or plasma potassium me asurement (moles/volume)Ordered By: Celina Lee on 06-26-2022 Potassium [Moles/Vol] 3.5 mmol/L 3.5-5.[address] [facility] Serum or plasma sodium measu rement (moles/volume)Ordered By: Celina Lee on 06-26-2022 Sodium [Moles/Vol] 138 mmol/L 136-146 [facility] Serum or plasma total biliru bin measurement (mass/volume)Ordered By: Celina Lee on 06-26-2022 Bilirubin [Mass/Vol] 0.7 mg/dL 0.3-1.2 [facility] Serum or plasma total carbon dioxide measurement (moles/volume)Ordered By: Celina Lee on 06-26-2022 CO2 [Moles/Vol] 28.5 mmol/L 22.0-30.0 [facility] Serum or plasma urea nitroge n measurement (mass/volume)Ordered By: Celina Lee on 06-26-2022 Urea nitrogen [Mass/Vol] 23 mg/dL 9- [facility] TSH DL <= 0.005 mIU/L QnOrde red By: Sam Machado on 06-26-2022 TSH Qn 1.13 m[IU]/L 0.45-5.33 [facility] Tobacco Screening.on 022 Adult depression screening assessment No [facility] [address] DO Work Phone: Fall risk assessment a) No falls within the last year [facility] Work Phone: Tobacco use status CP b) No M [facility] y 250 DO Work Phone: Basophils Auto (Bld) [#/Vol] Ordered By: Cece Anguiano on 04-10-2022 Basophils (Bld) [#/Vol] 0.0 10*3/uL 0.0-0.2 [facility] Basophils/100 WBC Auto (Bld) Ordered By: Cece Anguiano on 04-10-2022 Basophils/100 WBC (Bld) 0.5 % . F [facility] Blood hemoglobin measurement (mass/volume)Ordered By: Cece Anguiano on 04-10-2022 Hemoglobin (Bld) [Mass/Vol] 11.0 g/dL 11.8-15.4 [facility] Blood leukocytes automated c ount (number/volume)Ordered By: Cece Anguiano on 04-10-2022 WBC (Bld) [#/Vol] 4.7 10*3/uL 4.5-11.0 [facility] C reactive protein [Mass/vol ume] in Serum or PlasmaOrdered By: Cece Anguiano on 04-10-2022 CRP [Mass/Vol] 0.5 mg/dL 0.0-1.0 [facility] Eosinophils Auto (Bld) [#/Vo l]Ordered By: Cece Anguiano on 04-10-2022 Eosinophils (Bld) [#/Vol] 0.2 10*3/uL 0.0-0.45 [facility] Eosinophils/100 WBC Auto (Bl d)Ordered By: Cece Anguiano on 04-10-2022 Eosinophils/100 WBC (Bld) 4.3 % . [facility] Erythrocyte distribution wid th Auto (RBC) [Ratio]Ordered By: Cece Anguiano on 04-10-2022 Erythrocyte distribution width (RBC) [Ratio] 12.7 % 11.9-15.3 [facility] Erythrocyte sedimentation ra te by Photometric methodOrdered By: Cece Anguiano on 04-10-2022 ESR Photometric method (Bld) [Velocity] 7 mm/hr 0-29 [facility] Hematocrit Auto (Bld) [Volum e fraction]Ordered By: Cece Anguiano on 04-10-2022 Hematocrit (Bld) [Volume fraction] 32.4 % 34.0-46.4 [facility] Laboratory - Hematology and Cell countsOrdered By: Cece Anguiano on 04-10-2022 Nucleated RBC/100 WBC (Bld) [Ratio] 0.1 % 0-0.5 [facility] Lymphocytes Auto (Bld) [#/Vo l]Ordered By: Cece Anguiano on 04-10-2022 Lymphocytes (Bld) [#/Vol] 1.5 10*3/uL 1.00-4.8 [facility] Lymphocytes/100 WBC Auto (Bl d)Ordered By: Cece Anguiano on 04-10-2022 Lymphocytes/100 WBC (Bld) 31.7 % . [facility] MCH Auto (RBC) [Entitic mass ]Ordered By: Cece Anguiano on 04-10-2022 MCH (RBC) [Entitic mass] 31.5 pg 24.7-34.3 [facility] MCHC Auto (RBC) [Mass/Vol]Or dered By: Cece Anguiano on 04-10-2022 MCHC (RBC) [Mass/Vol] 34.1 g/dL 32.0-35.0 [facility] MCV Auto (RBC) [Entitic vol] Ordered By: Cece Anguiano on 04-10-2022 MCV (RBC) [Entitic vol] 92.5 fL 80-100 F [facility] Monocytes Auto (Bld) [#/Vol] Ordered By: Cece Anguiano on 04-10-2022 Monocytes (Bld) [#/Vol] 0.4 10*3/uL 0.0-0.8 [facility] Monocytes/100 WBC Auto (Bld) Ordered By: Cece Anguiano on 04-10-2022 Monocytes/100 WBC (Bld) 8.5 % . [facility] Neutrophils Auto (Bld) [#/Vo l]Ordered By: Cece Anguiano on 04-10-2022 Neutrophils (Bld) [#/Vol] 2.6 10*3/uL 1.8-7.7 [facility] Neutrophils/100 WBC Auto (Bl d)Ordered By: Cece Anguiano on 04-10-2022 Neutrophils/100 WBC (Bld) 55.0 % . [facility] No Panel InformationOrdered By: Cece Anguiano on 04-10-2022 D-Dimer Quantitative (PE/DVT) 372 ng/mL 0-243 [facility] Comment on above: The reference range for D-dimer is <243 ng/mL D-dimer units. D-dimer results must be used in conjunction with a clinical pretest probability (PTP) assessment model for deep vein thrombosis (DVT) and pulmonary embolism (PE). Results <230 ng/mL d-dimer units can be used as a negative predictor in patients with low or moderate probability for DVT/PE. Results above the exclusion threshold of 230 ng/ml D-dimer units for DVT/PE may indicate the need for further diagnostic testing. D-Dimer can be increased in hospitalized patients due to co-morbid conditions. The reference range for D-dimer is <243 ng/mL D-dimer units.D-dimer results must be used in conjunction with a clinicalpretest probability (PTP) assessment model for deep veinthrombosis (DVT) and pulmonary embolism (PE). Results <230ng/mL d-dimer units can be used as a negative predictor inpatients with low or moderate probability for DVT/PE.Results above the exclusion threshold of 230 ng/ml D-dimerunits for DVT/PE may indicate the need for furtherdiagnostic testing.D-Dimer can be increased in hospitalized patients due toco-morbid conditions. Platelet mean volume Auto (B ld) [Entitic vol]Ordered By: Cece Anguiano on 04-10-2022 Platelet mean volume (Bld) [Entitic vol] 9.7 fL 6.3-10.7 [facility] Platelets Auto (Bld) [#/Vol] Ordered By: Cece Anguiano on 04-10-2022 Platelets (Bld) [#/Vol] 206 10*3/uL 150-450 [facility] RBC Auto (Bld) [#/Vol]Ordere d By: Cece Anguiano on 04-10-2022 RBC (Bld) [#/Vol] 3.50 10*6/uL 3.60-5.00 [facility] XR knee RT 3Von 04-09-2022 XR knee RT 3V XR/XR knee RT 3V - NOT FOR ER USE: History of total right knee [employer] Other XR knee RT 3V replacement EXO5 Other XR knee RT 3V XR knee RT 3V - NOT FOR ER USE 04/09/2022 2:40 PM [employer] Other XR knee RT 3V SIGNS AND SYMPTOMS: Right knee arthroplasty, right knee pain [employer] Other XR knee RT 3V PROTOCOL: Frontal, lateral, and oblique radiographs of the right knee [employer] Other XR knee RT 3V COMPARISON: None [employer] Other XR knee RT 3V There is total right knee arthroplasty hardware. There is no hardware complication. No evidence of [employer] Other XR knee RT 3V malalignment. There is no evidence of fracture or dislocation. There is fragmentation of the [employer] Other XR knee RT 3V inferior pole of the patella which may be a product of avascular necrosis. No joint effusion or soft [employer] Other XR knee RT 3V tissue swelling. [employer] Other XR knee RT 3V X R/XR knee RT 3V - NOT FOR ER USE [employer] Other XR knee RT 3V Total right knee arthroplasty hardware is noted without hardware complication or fracture. [employer] Other XR knee RT 3V There is fragmentati on of the inferior pole of the patella which may be a product of avascular [employer] Other XR knee RT 3V necrosis. [employer] Other XR knee RT 3V Impression dictated by: John Chadwick M.D.04/09/2022 4:19 PM [employer] Other XR knee RT 3V Transcribed By: HASMUKH 04/09/22 [facility] [employer] Other XR knee RT 3V Dictated By: John Chadwick II, MD 04/09/22 [facility] [employer] Other XR knee RT 3V 04/09/22 [facility] [employer] Other XR pelvis 1-2Von 04-09-2022 XR pelvis 1-2V [facility] [employer] Other XR pelvis 1-2V [facility] [employer] Other XR pelvis 1-2V [address] [place] [address] [employer] Other XR pelvis 1-2[place] [address] No rt [employer] Other XR pelvis 1-2V XRay Report [employer] Other XR pelvis 1-2V Signed [employer] Other XR pelvis 1-2V Patient: Ana Edwards MR#: [id number] [employer] Other XR pelvis 1-2V : 1935 Acct:[id number] [employer] Other XR pelvis 1-2V Age/Sex: 87 / F ADM Date: 04/09/22 [employer] Other XR pelvis 1-2V Loc: [facility] [place] Room: Type : [facility] [employer] Other XR pelvis 1-2V Attending Dr: Cece Anguiano II, MD [employer] Other XR pelvis 1-2V Copies to: Cece Anguiano MD [employer] Other XR pelvis 1-2V Ordering Provider: Cece Anguiano MD [employer] Other XR pelvis 1-2V Date of Service: 04/09/22 [employer] Other XR pelvis 1-2V XR/XR pelvis 1-2V: History of total right knee replacement [employer] Other XR pelvis 1-2V XR pelvis 1-2V 2021 2:40 PM [employer] Other XR pelvis 1-2V SIGNS AND SYMPTOMS: N [employer] Other XR pelvis 1-2V History of total rig ht knee replacement [employer] Other XR pelvis 1-2V PROTOCOL: Frontal radiograph of the pelvis [employer] Other XR pelvis 1-2V COMPARISON: 11/02/2014 [employer] Other XR pelvis 1-2V FINDINGS: [employer] Other XR pelvis 1-2V There is posterior fusion hardware in the lumbosacral junction. Degenerative changes are noted in [employer] Other XR pelvis 1-2V the sacral iliac asad nts and hips. There is no fracture or dislocation. [employer] Other XR pelvis 1-2V X R/XR pelvis 1-2V [employer] Other XR pelvis 1-2V IMPRESSION: [employer] Other XR pelvis 1-2V No acute bony injury. 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 [employer] Other XR pelvis 1-2V Impression dictated by: John Chadwick M.D.04/09/2022 3:06 PM [employer] Other XR pelvis 1-2V Dictation Location: [place] [address] [employer] Other XR pelvis 1-2V Transcribed By: HASMUKH 04/09/22 [facility] [employer] Other XR pelvis 1-2V Dictated By: John Chadwick II, MD 04/09/22 [facility] [employer] Other XR pelvis 1-2V Signed By: EXO5 Other XR pelvis 1-2V 04/09/22 [facility]4 [employer] Other Albumin [Mass/volume] in Ser um or PlasmaOrdered By: Celina Lee on 03-07-2022 Albumin [Mass/Vol] 3.5 g/dL 3.2-5.5 [facility] Albumin [Mass/Vol] 3.7 g/dL 2.9-4.4 [facility] Albumin/Protein.total in 24 hour Urine by ElectrophoresisOrdered By: Celina Lee on 03-07-2022 Albumin Elph (24H U) [Mass fraction] 28.2 % . [facility] Basophils Auto (Bld) [#/Vol] Ordered By: Celina Lee on 03-07-2022 Basophils (Bld) [#/Vol] 0.0 10*3/uL 0.0-0.2 [facility] Basophils/100 WBC Auto (Bld) Ordered By: Celina Lee on 03-07-2022 Basophils/100 WBC (Bld) 0.8 % . [facility] Blood hemoglobin measurement (mass/volume)Ordered By: Celina Lee on 03-07-2022 Hemoglobin (Bld) [Mass/Vol] 10.2 g/dL 11.8-15.4 [facility] Blood leukocytes automated c ount (number/volume)Ordered By: Celina Lee on 03-07-2022 WBC (Bld) [#/Vol] 5.1 10*3/uL 4.5-11.0 [facility] CT biopsyOrdered By: Celina Lee on 03-07-2022 Transferrin [Mass/Vol] 184 mg/dL 180-[address] [facility] Creatinine and Glomerular fi ltration rate.predicted panel (S/P/Bld)Ordered By: Celina Lee on 03-07-2022 Creatinine [Mass/Vol] 1.27 mg/dL 0.44-1.[address] [facility] Eosinophils Auto (Bld) [#/Vo l]Ordered By: Celina Lee on 03-07-2022 Eosinophils (Bld) [#/Vol] 0.3 10*3/uL 0.0-0.45 [facility] Eosinophils/100 WBC Auto (Bl d)Ordered By: Celina Lee on 03-07-2022 Eosinophils/100 WBC (Bld) 5.0 % . [facility] Erythrocyte distribution wid th Auto (RBC) [Ratio]Ordered By: Celina Lee on 03-07-2022 Erythrocyte distribution width (RBC) [Ratio] 13.0 % 11.9-15.3 [facility] Estimated glomerular filtrat ion rate (GFR) non- AmericanOrdered By: Celina Lee on 03-07-2022 GFR/1.73 sq M.predicted among non-blacks MDRD (S/P/Bld) [Vol rate/Area] 40 mL/Min [facility] Ferritin [Mass/volume] in Se rum or PlasmaOrdered By: Celina Lee on 03-07-2022 Ferritin [Mass/Vol] 170.6 ng/mL 11-306.8 [facility] Folate [Mass/volume] in Seru m or PlasmaOrdered By: Celina Lee on 03-07-2022 Folate [Mass/Vol] 21.2 ng/mL >5.9 [facility] Comment on above: Folate reference ran ge: >5.9 ng/ml The WHO technical consultation on folate and vitamin b12 deficiencies has determined that folate concentrations less than 4 ng/ml are considered deficient. Folate reference ran ge: >5.9 ng/mlThe WHO technical consultation on folate and vitamin [id number] has determined that folate concentrations lessthan 4 ng/ml are considered deficient. Gamma globulin/Protein.total in 24 hour Urine by ElectrophoresisOrdered By: Celina Lee on 03-07-2022 Gamma globulin Elph (24H U) [Mass fraction] 22.3 % . [facility] Globulin Calc (S) [Mass/Vol] Ordered By: Celina Lee on 03-07-2022 Globulin (S) [Mass/Vol] 2.2 g/dL [facility] Haptoglobin [Mass/volume] in Serum or PlasmaOrdered By: Celina Lee on 03-07-2022 Haptoglobin [Mass/Vol] 87 mg/dL 37-[address] [facility] Hematocrit Auto (Bld) [Volum e fraction]Ordered By: Ceilna Lee on 03-07-2022 Hematocrit (Bld) [Volume fraction] 29.7 % 34.0-46.4 [facility] IgA [Mass/volume] in Serum o r PlasmaOrdered By: Celina Lee on 03-07-2022 IgA [Mass/Vol] 112 mg/dL 64-422 [facility] IgG [Mass/volume] in Serum o r PlasmaOrdered By: Celina Lee on 03-07-2022 IgG [Mass/Vol] 575 mg/dL 586-1602 [facility] IgM [Mass/volume] in Serum o r PlasmaOrdered By: Celina Lee on 03-07-2022 IgM [Mass/Vol] 99 mg/dL 26-217 [facility] Comment on above: Performed at: [employer] [place] [address] [place] [address] Automation And Control Engineer: Jose C Vivas PhD, Phone: [phone] Performed at: [facility] [place] [id number] Director: Jose C Vivas PhD, Phone: [phone] Immunoglobulin light chains. kappa.free [Mass/volume] in SerumOrdered By: Celina Lee on 03-07-2022 Immunoglobulin light chains.kappa.free (S) [Mass/Vol] 24.2 mg/L 3.3-19.4 [facility] Immunoglobulin light chains. kappa.free/Immunoglobulin light chains.lambda.free [MassOrdered By: Celina Lee on 03-07-2022 Immunoglobulin light chains.kappa.free/Immun oglobulin light chains.lambda.free (S) [Mass ratio] 1.49 0.26-1.65 [facility] Comment on above: Performed at: [facility] [address] [place] [id number] Automation And Control Engineer: Jose C Vivas PhD, Phone: [phone] Performed at: [facility] [place] [address] [id number] Director: Jose C Vivas PhD, Phone: [phone] Immunoglobulin light chains. lambda.free [Mass/volume] in Serum or PlasmaOrdered By: Celina Lee on 07-08-2022 Immunoglobulin light chains.lambda.free [Mass/Vol] 16.2 mg/L 5.7-26.3 [facility] Iron [Mass/volume] in Serum or PlasmaOrdered By: Celina Lee on 03-07-2022 Iron [Mass/Vol] 66 ug/dL 40-150 [facility] Iron binding capacity [Mass/ volume] in Serum or PlasmaOrdered By: Celina Lee on 03-07-2022 Iron binding capacity [Mass/Vol] 258 ug/dL 255-450 [facility] Iron saturation [Mass Fracti on] in Serum or PlasmaOrdered By: Celina Lee on 03-07-2022 Iron saturation [Mass fraction] 25.0 % 20-50 [facility] Laboratory - Chemistry and C hemistry - challengeOrdered By: Celina Lee on 03-07-2022 Cobalamin (Vitamin B12) [Mass/Vol] 479 pg/mL 180-914 [facility] Laboratory - Hematology and Cell countsOrdered By: Celina Lee on 03-07-2022 Nucleated RBC/100 WBC (Bld) [Ratio] 0.1 % 0-0.5 [facility] Lactate dehydrogenase measur ement (enzymatic activity/volume)Ordered By: Celina Lee on 03-07-2022 LDH (Unsp spec) [Catalytic activity/Vol] 162 U/L 45-190 [facility] Lymphocytes Auto (Bld) [#/Vo l]Ordered By: Celina Lee on 03-07-2022 Lymphocytes (Bld) [#/Vol] 1.4 10*3/uL 1.00-4.8 [facility] Lymphocytes/100 WBC Auto (Bl d)Ordered By: Celina Lee on 03-07-2022 Lymphocytes/100 WBC (Bld) 28.2 % . [facility] MCH Auto (RBC) [Entitic mass ]Ordered By: Celina Lee on 03-07-2022 MCH (RBC) [Entitic mass] 31.6 pg 24.7-34.3 [facility] MCHC Auto (RBC) [Mass/Vol]Or dered By: Celina Lee on 03-07-2022 MCHC (RBC) [Mass/Vol] 34.5 g/dL 32.0-35.0 [facility] MCV Auto (RBC) [Entitic vol] Ordered By: Celina Lee on 03-07-2022 MCV (RBC) [Entitic vol] 91.7 fL 80-100 F [facility] Monocytes Auto (Bld) [#/Vol] Ordered By: Celina Lee on 03-07-2022 Monocytes (Bld) [#/Vol] 0.4 10*3/uL 0.0-0.8 [facility] Monocytes/100 WBC Auto (Bld) Ordered By: Celina Lee on 03-07-2022 Monocytes/100 WBC (Bld) 8.0 % . [facility] Neutrophils Auto (Bld) [#/Vo l]Ordered By: Celina Lee on 03-07-2022 Neutrophils (Bld) [#/Vol] 2.9 10*3/uL 1.8-7.7 [facility] Neutrophils/100 WBC Auto (Bl d)Ordered By: Celina Lee on 03-07-2022 Neutrophils/100 WBC (Bld) 58.0 % . [facility] No Panel InformationOrdered By: Celina Lee on 03-07-2022 Urine Random Prot Electrophor Note See comment . [facility] Comment on above: Protein electrophore sis scan will follow via computer, mail, or ultrasound technologist delivery. Performed at: [employer] [id number] Automation And Control Engineer: Jose C Vivas PhD, Phone: [phone] Protein electrophore sis scan will follow via computer,mail, or ultrasound technologist delivery.Performed at: [employer] [id number] Director: Jose C Vivas PhD, Phone: [phone] Absolute Reticulocyte Count 0.047 10*6/uL 0.024-0.08 4 [facility] Estimated GFR () 48 mL/Min [facility] Comment on above: GFR estimated refere nce range: According to KDOQI guidelines, <60 ml/min/1.73m2 is sufficient to diagnose a patient with chronic kidney disease. Percent Reticulocyte Count 1.5 % 0.5-1.5 [facility] Pharmacy Creatinine Clearance (Chem 28.33 [facility] Protein Electrophoresis M-Nithin Not observed g/dL Not Observed [facility] Protein Electrophoresis Note See comment . [facility] Comment on above: Protein electrophore sis scan will follow via computer, mail, or ultrasound technologist delivery. Performed at: [employer] [address] [id number] Automation And Control Engineer: Jose C Vivas PhD, Phone: [phone] Protein electrophore sis scan will follow via computer,mail, or ultrasound technologist delivery.Performed at: [employer] [address] [id number] Director: Jose C Vivas PhD, Phone: [phone] Serum Immunofixation See comment . [facility] Comment on above: No monoclonality det ected. Platelet mean volume Auto (B ld) [Entitic vol]Ordered By: Celina Lee on 03-07-2022 Platelet mean volume (Bld) [Entitic vol] 9.9 fL 6.3-10.7 [facility] Platelets Auto (Bld) [#/Vol] Ordered By: Celina Lee on 03-07-2022 Platelets (Bld) [#/Vol] 197 10*3/uL 150-450 [facility] Protein [Mass/volume] in Ser um or PlasmaOrdered By: Celina Lee on 03-07-2022 Protein [Mass/Vol] 5.7 g/dL 6.1-7.9 [facility] Protein [Mass/Vol] 5.8 g/dL 6.0-8.5 [facility] Protein [Mass/volume] in Uri neOrdered By: Celina Lee on 03-07-2022 Protein (U) [Mass/Vol] 8.6 mg/dL Not Estab. [facility] Protein.monoclonal/Protein.t otal in 24 hour Urine by ElectrophoresisOrdered By: Celina Lee on 03-07-2022 Protein.monoclonal Elph (24H U) [Mass fraction] Not observed % Not Observed [facility] RBC Auto (Bld) [#/Vol]Ordere d By: Celina Lee on 03-07-2022 RBC (Bld) [#/Vol] 3.24 10*6/uL 3.60-5.00 [facility] Serum globulin measurement ( mass/volume)Ordered By: Celina Lee on 03-07-2022 Globulin (S) [Mass/Vol] 2.1 g/dL 2.2-3.9 [facility] Serum or plasma alanine vazquez otransferase measurement without P-5'-P (enzymatic activiOrdered By: Celina Lee on 03-07-2022 ALT No additional P-5'-P [Catalytic activity/Vol] 17 U/L 10-60 [facility] Serum or plasma albumin/glob ulin mass ratioOrdered By: Celina Lee on 03-07-2022 Albumin/Globulin [Mass ratio] 1.6 {ratio} [facility] Albumin/Globulin [Mass ratio] 1.8 {ratio} 0.7-1.7 [facility] Serum or plasma alkaline shira sphatase measurement (enzymatic activity/volume)Ordered By: Celina Lee on 03-07-2022 ALP [Catalytic activity/Vol] 43 U/L 32-92 [facility] Serum or plasma alpha 1 glob ulin measurement by electrophoresis (mass/volume)Ordered By: Celina Lee on 03-07-2022 Alpha 1 globulin Elph [Mass/Vol] 0.2 g/dL 0.0-0.4 [facility] Serum or plasma alpha 2 glob ulin measurement by electrophoresis (mass/volume)Ordered By: Celina Lee on 03-07-2022 Alpha 2 globulin Elph [Mass/Vol] 0.6 g/dL 0.4-1.0 [facility] Serum or plasma aspartate am inotransferase measurement (enzymatic activity/volume)Ordered By: Celina Lee on 03-07-2022 AST [Catalytic activity/Vol] 22 U/L 10-42 [facility] Serum or plasma beta globuli n measurement by electrophoresis (mass/volume)Ordered By: Celina Lee on 03-07-2022 Beta globulin Elph [Mass/Vol] 0.7 g/dL 0.7-1.3 [facility] Serum or plasma calcium clif urement (mass/volume)Ordered By: Celina Lee on 03-07-2022 Calcium [Mass/Vol] 9.9 mg/dL 8.2-10.2 [facility] Serum or plasma chloride víctor surement (moles/volume)Ordered By: Celina Lee on 03-07-2022 Chloride [Moles/Vol] 102 mmol/L 95-114 [facility] Serum or plasma erythropoiet in (EPO) measurement (units/volume)Ordered By: Celina Lee on 03-07-2022 Erythropoietin (EPO) Qn 13.4 mIU/mL 2.6-18.5 [facility] Comment on above: [employer] DxI 800 Immunoassay System Values obtained with different assay methods or kits cannot be used interchangeably. Results cannot be interpreted as absolute evidence of the presence or absence of malignant disease. Performed at: [employer] [id number] Automation And Control Engineer: Jose C Vivas PhD, Phone: [phone] [employer] 800 Immunoassay SystemValues obtained with different assay methods or kits cannotbe used interchangeably. Results cannot be interpreted asabsolute evidence of the presence or absence of malignantdisease.Performed at: [employer] [id number] Director: Jose C Vivas PhD, Phone: [phone] Serum or plasma gamma globul in measurement by electrophoresis (mass/volume)Ordered By: Celina Lee on 03-07-2022 Gamma globulin Elph [Mass/Vol] 0.4 g/dL 0.4-1.8 [facility] Serum or plasma glucose clif urement (mass/volume)Ordered By: Celina Lee on 03-07-2022 Glucose [Mass/Vol] 99 mg/dL 70-100 [facility] Comment on above: ADA recommended refe rence range Random Glucose Reference Range is dependent on time and content of last meal. Glucose of more than 200 mg/dL in a nonstressed, ambulatory subject supports the diagnosis of Diabetes Mellitus. ADA recommended refe rence rangeRandom Glucose Reference Range is dependent on time and content of last meal. Glucose of more than 200 mg/dL in a nonstressed, ambulatory subject supports the diagnosis of Diabetes Mellitus. Serum or plasma homocysteine measurement (moles/volume)Ordered By: Celina Lee on 03-07-2022 Homocysteine [Moles/Vol] 20.6 umol/L 0.0-21.3 [facility] Comment on above: Performed at: [email or web address] [place] [id number] [place], [place] [id number] Automation And Control Engineer: Jose C Vivas PhD, Phone: [phone] Performed at: [email or web address] [address] [id number] Director: Jose C Vivas PhD, Phone: [phone] Serum or plasma methylmalona te measurement (moles/volume)Ordered By: Celina Lee on 03-07-2022 Methylmalonate [Moles/Vol] 205 nmol/L 0-378 [facility] Comment on above: This test was develo ped and its performance characteristics determined by [employer] 2000. It has not been cleared or approved by the Food and Drug Administration. Performed at: [facility] [id number] Automation And Control Engineer: Jeanette Pittman MD, Phone: [phone] This test was develo ped and its performance characteristicsdetermined by [facility]. It has not been cleared orapproved by the Food and Drug Administration.Performed at: [facility] [id number] Director: Jeanette Pittman MD, Phone: [phone] Serum or plasma potassium me asurement (moles/volume)Ordered By: Celina Lee on 03-07-2022 Potassium [Moles/Vol] 3.7 mmol/L 3.5-5.[address] [facility] Serum or plasma sodium measu rement (moles/volume)Ordered By: Celina Lee on 03-07-2022 Sodium [Moles/Vol] 140 mmol/L 136-146 [facility] Serum or plasma total biliru bin measurement (mass/volume)Ordered By: Celina Lee on 03-07-2022 Bilirubin [Mass/Vol] 0.8 mg/dL 0.3-1.2 [facility] Serum or plasma total carbon dioxide measurement (moles/volume)Ordered By: Celina Lee on 03-07-2022 CO2 [Moles/Vol] 29.7 mmol/L 22.0-30.0 [facility] Serum or plasma urea nitroge n measurement (mass/volume)Ordered By: Celina Lee on 03-07-2022 Urea nitrogen [Mass/Vol] 17 mg/dL 9-23 [facility] Urine alpha 1 globulin/total protein by electrophoresisOrdered By: Celina Lee on 03-07-2022 Alpha 1 globulin Elph (U) [Mass fraction] 4.9 % . [facility] Urine alpha 2 globulin/total protein ratio by electrophoresisOrdered By: Celina Lee on 03-07-2022 Alpha 2 globulin Elph (U) [Mass fraction] 12.4 % . [facility] Urine beta globulin measurem ent by electrophoresis (mass/volume)Ordered By: Celina Lee on 03-07-2022 Beta globulin Elph (U) [Mass/Vol] 32.2 % . [facility] Bacterial blood cultureOrder ed By: Troy Mcgraw on 01-23-2022 Bacteria identified Cx Nom (Bld) NO GROWTH 5 DAYS [facility] Basophils Auto (Bld) [#/Vol] Ordered By: Yoav Hsu on 01-21-2022 Basophils (Bld) [#/Vol] 0.0 10*3/uL 0.0-0.2 [facility] Basophils/100 WBC Auto (Bld) Ordered By: Yoav Hsu on 01-21-2022 Basophils/100 WBC (Bld) 0.5 % . F [facility] Blood hemoglobin measurement (mass/volume)Ordered By: Yoav Hsu on 01-21-2022 Hemoglobin (Bld) [Mass/Vol] 8.7 g/dL 11.8-15.4 [facility] Blood leukocytes automated c ount (number/volume)Ordered By: Yoav Hsu on 01-21-2022 WBC (Bld) [#/Vol] 5.4 10*3/uL 4.5-11.0 [facility] CT biopsyOrdered By: Yoav gottlieb on 01-21-2022 Transferrin [Mass/Vol] 171 mg/dL 180-380 [facility] Creatinine and Glomerular fi ltration rate.predicted panel (S/P/Bld)Ordered By: Yoav Hsu on 01-21-2022 Creatinine [Mass/Vol] 1.19 mg/dL 0.44-1.[address] [facility] Eosinophils Auto (Bld) [#/Vo l]Ordered By: Yoav Hsu on 01-21-2022 Eosinophils (Bld) [#/Vol] 0.2 10*3/uL 0.0-0.45 [facility] Eosinophils/100 WBC Auto (Bl d)Ordered By: Yoav Hsu on 01-21-2022 Eosinophils/100 WBC (Bld) 3.3 % . [facility] Erythrocyte distribution wid th Auto (RBC) [Ratio]Ordered By: Yoav Hsu on 01-21-2022 Erythrocyte distribution width (RBC) [Ratio] 12.3 % 11.9-15.3 [facility] Estimated glomerular filtrat ion rate (GFR) non- AmericanOrdered By: Yoav Hsu on 01-21-2022 GFR/1.73 sq M.predicted among non-blacks MDRD (S/P/Bld) [Vol rate/Area] 43 mL/Min [facility] Ferritin [Mass/volume] in Se rum or PlasmaOrdered By: Yoav Hsu on 01-21-2022 Ferritin [Mass/Vol] 257.6 ng/mL 11-306.8 [facility] Folate [Mass/volume] in Seru m or PlasmaOrdered By: Yoav Hsu on 01-21-2022 Folate [Mass/Vol] 15.5 ng/mL >5.9 [facility] Comment on above: Folate reference ran ge: >5.9 ng/ml The WHO technical consultation on folate and vitamin b12 deficiencies has determined that folate concentrations less than 4 ng/ml are considered deficient. Hematocrit Auto (Bld) [Volum e fraction]Ordered By: Yoav Hsu on 01-21-2022 Hematocrit (Bld) [Volume fraction] 24.5 % 34.0-46.4 [facility] Iron [Mass/volume] in Serum or PlasmaOrdered By: Yoav Hsu on 01-21-2022 Iron [Mass/Vol] 55 ug/dL 40-150 [facility] Iron binding capacity [Mass/ volume] in Serum or PlasmaOrdered By: Oscar Desmond on 01-21-2022 Iron binding capacity [Mass/Vol] 239 ug/dL 255-450 [facility] Iron saturation [Mass Fracti on] in Serum or PlasmaOrdered By: Yoav Hsu on 01-21-2022 Iron saturation [Mass fraction] 23.0 % 20-50 [facility] Laboratory - Chemistry and C hemistry - challengeOrdered By: Yoav Hsu on 01-21-2022 Cobalamin (Vitamin B12) [Mass/Vol] 387 pg/mL 180-914 [facility] Laboratory - Hematology and Cell countsOrdered By: Yoav Hsu on 01-21-2022 Nucleated RBC/100 WBC (Bld) [Ratio] 0.0 % 0-0.5 [facility] Lymphocytes Auto (Bld) [#/Vo l]Ordered By: Yoav Hsu on 01-21-2022 Lymphocytes (Bld) [#/Vol] 1.2 10*3/uL 1.00-4.8 [facility] Lymphocytes/100 WBC Auto (Bl d)Ordered By: Yoav Hsu on 01-21-2022 Lymphocytes/100 WBC (Bld) 21.4 % . [facility] MCH Auto (RBC) [Entitic mass ]Ordered By: Yoav Hsu on 01-21-2022 MCH (RBC) [Entitic mass] 33.0 pg 24.7-34.3 [facility] MCHC Auto (RBC) [Mass/Vol]Or dered By: Yoav Hsu on 01-21-2022 MCHC (RBC) [Mass/Vol] 35.7 g/dL 32.0-35.[address] [facility] MCV Auto (RBC) [Entitic vol] Ordered By: Yoav Hsu on 01-21-2022 MCV (RBC) [Entitic vol] 92.2 fL 80-100 [facility] Monocytes Auto (Bld) [#/Vol] Ordered By: Yoav Hsu on 01-21-2022 Monocytes (Bld) [#/Vol] 0.4 10*3/uL 0.0-0.8 [facility] Monocytes/100 WBC Auto (Bld) Ordered By: Yoav Hsu on 01-21-2022 Monocytes/100 WBC (Bld) 8.3 % . [facility] Neutrophils Auto (Bld) [#/Vo l]Ordered By: Yoav Hsu on 01-21-2022 Neutrophils (Bld) [#/Vol] 3.6 10*3/uL 1.8-7.7 [facility] Neutrophils/100 WBC Auto (Bl d)Ordered By: Yoav Hsu on 01-21-2022 Neutrophils/100 WBC (Bld) 66.5 % . [facility] No Panel InformationOrdered By: Yoav Hsu on 01-21-2022 Estimated GFR () 52 mL/Min [facility] Comment on above: GFR estimated refere nce range: According to KDOQI guidelines, <60 ml/min/1.73m2 is sufficient to diagnose a patient with chronic kidney disease. Pharmacy Creatinine Clearance (Chem 29.91 [facility] Platelet mean volume Auto (B ld) [Entitic vol]Ordered By: Yoav Hsu on 01-21-2022 Platelet mean volume (Bld) [Entitic vol] 9.2 fL 6.3-10.7 [facility] Platelets Auto (Bld) [#/Vol] Ordered By: Yoav Hsu on 01-21-2022 Platelets (Bld) [#/Vol] 153 10*3/uL 150-450 [facility] RBC Auto (Bld) [#/Vol]Ordere d By: Yoav Hsu on 01-21-2022 RBC (Bld) [#/Vol] 2.65 10*6/uL 3.60-5.00 [facility] Serum or plasma calcium clif urement (mass/volume)Ordered By: Yoav Hsu on 01-21-2022 Calcium [Mass/Vol] 8.8 mg/dL 8.2-10.2 [facility] Serum or plasma chloride víctor surement (moles/volume)Ordered By: Yoav Hsu on 01-21-2022 Chloride [Moles/Vol] 108 mmol/L 95-114 [facility] Serum or plasma glucose clif urement (mass/volume)Ordered By: Yoav Hsu on 01-21-2022 Glucose [Mass/Vol] 81 mg/dL 70-100 [facility] Comment on above: ADA recommended refe rence range Random Glucose Reference Range is dependent on time and content of last meal. Glucose of more than 200 mg/dL in a nonstressed, ambulatory subject supports the diagnosis of Diabetes Mellitus. Serum or plasma potassium me asurement (moles/volume)Ordered By: Yoav Hsu on 01-21-2022 Potassium [Moles/Vol] 3.6 mmol/L 3.5-5.[address] [facility] Serum or plasma sodium measu rement (moles/volume)Ordered By: Yoav Hsu on 01-21-2022 Sodium [Moles/Vol] 139 mmol/L 136-146 [facility] Serum or plasma total carbon dioxide measurement (moles/volume)Ordered By: Yoav Hsu on 01-21-2022 CO2 [Moles/Vol] 24.1 mmol/L 22.0-30.0 [facility] Serum or plasma urea nitroge n measurement (mass/volume)Ordered By: Yoav Hsu on 01-21-2022 Urea nitrogen [Mass/Vol] 13 mg/dL 9- [facility] Urine culture routineOrdered By: Cristino Eid on 01-21-2022 Bacteria identified Cx Nom (U) No Growth 2 Days [facility] Automated erythrocytes count in urine sediment (number/area)Ordered By: Cristino Eid on 01-19-2022 RBC Auto (Urine sed) [#/Area] 0-1 [HPF] 0-4 [facility] [facility] Autom[facility] leukocytes count i n urine sediment (number/area)Ordered By: Cristino Eid on 01-19-2022 WBC Auto (Urine sed) [#/Area] 5-9 [HPF] 0-4 [facility] Bilirubin Test strip Ql (U)O rdered By: Cristino Eid on 01-19-2022 Bilirubin Ql (U) Negative Negative [facility] Color Auto (U)Ordered By: Azalia Eid on 01-19-2022 Color (U) Yellow Yellow [facility] Creatinine [Mass/volume] in UrineOrdered By: Cristino Eid on 01-19-2022 Creatinine (U) [Mass/Vol] 67.7 mg/dL [facility] Comment on above: No reference range e stablished Eosinophils detection in uri ne sediment by Cook stainOrdered By: Cristino Eid on 01-19-2022 Eosinophils Cook stain Ql (Urine sed) 0 % 0-1 [facility] Ketones Auto test strip (U) [Mass/Vol]Ordered By: Cristino Eid on 01-19-2022 Ketones (U) [Mass/Vol] Negative Negative [facility] - UrinalysisOrder ed By: Cristino Eid on 01-19-2022 Hyaline casts LM Ql (Urine sed) 0-8 [LPF] 0-8 [facility] Nitrite Test strip Ql (U)Ord ered By: Cristino Eid on 01-19-2022 Nitrite Ql (U) Negative Negative [facility] Protein Auto test strip (U) [Mass/Vol]Ordered By: Cristino Eid on 01-19-2022 Protein (U) [Mass/Vol] Negative Negative [facility] Specific gravity Auto test s trip (U) [Rel density]Ordered By: Cristino Eid on 01-19-2022 Specific gravity (U) [Rel density] 1.011 1.001-1.03 0 [facility] Squamous epithelial cells de tection in urine sediment by light microscopyOrdered By: Cristino Eid on 01-19-2022 Epithelial cells.squamous LM Ql (Urine sed) 3-4 [HPF] 0-2 [facility] Urine bacteria detection by automated methodOrdered By: Cristino Eid on 01-19-2022 Bacteria Auto Ql (U) None seen None Seen [facility] Urine clarity by refractomet ry automatedOrdered By: Cristino Eid on 01-19-2022 Clarity Refractometry automated (U) Clear Clear [facility] Urine glucose measurement by automated test strip (mass/volume)Ordered By: Cristino Eid on 01-19-2022 Glucose Auto test strip (U) [Mass/Vol] Normal mg/dL Normal [facility] Urine hemoglobin detection b y automated test stripOrdered By: Cristino Eid on 01-19-2022 Hemoglobin Auto test strip Ql (U) Negative Negative [facility] Urine leukocyte esterase det ection by automated test stripOrdered By: Cristino Eid on 01-19-2022 Leukocyte esterase Auto test strip Ql (U) 2+ Negative [facility] Urine sodium measurement (mo les/volume)Ordered By: Cristino Eid on 01-19-2022 Sodium (U) [Moles/Vol] 35.0 mmol/L F [facility] Comment on above: No reference range e stablished Urobilinogen Auto test strip (U) [Mass/Vol]Ordered By: Cristino Eid on 01-19-2022 Urobilinogen (U) [Mass/Vol] Normal mg/dL Normal [facility] pH Auto test strip (U)Ordere d By: Cristino Eid on 01-19-2022 pH (U) 5.5 [pH] 5.0-9.0 [facility] Erythrocyte sedimentation ra te by Photometric methodOrdered By: Rico Recinos on 01-18-2022 ESR Photometric method (Bld) [Velocity] 4 mm/hr 0-29 [facility] Laboratory - Chemistry and C hemistry - challengeOrdered By: Rico Recinos on 01-18-2022 Magnesium [Mass/Vol] 2.1 mg/dL 1.6-2.6 [facility] No Panel InformationOrdered By: Troy Mcgraw on 01-18-2022 SARS Antigen (LFIA) [facility] Serum or plasma C reactive p rotein measurement (mass/volume)Ordered By: Rico Recinos on 01-18-2022 CRP [Mass/Vol] 0.5 mg/dL 0.0-1.0 [facility] COVID-19 Positive/NegativeOr dered By: Troy Mcgraw on 01-17-2022 SARS-CoV-2 (COVID-19) N gene JC+probe Ql (Resp) Negative Negative [facility] Comment on above: Testing for SARS-CoV -2 by RT-PCR This test was developed and its performance characteristics determined by [employer] and validated at the [facility]. This test has not been FDA cleared or approved. This test has been authorized by FDA under an Emergency Use Authorization (EUA). This test has been validated in accordance with the FDA's Guidance Document (Policy for Diagnostics Testing in Laboratories Certified to Perform High Complexity Testing under CLIA prior to Emergency Use Authorization for Coronavirus Disease-2019 during the Public Health Emergency) issued on December 01, 2019. This test is only authorized for the duration of time the declaration that circumstances exist justifying the authorization of the emergency use of in vitro diagnostic tests for detection of SARS-CoV-2 virus and/or diagnosis of COVID-19 infection under section 564(b)(1) of the Act, 21 U.S.C. 360bbb-3(b)(1), unless the authorization is terminated or revoked sooner. COVID-19 SOFIAOrdered By: Dago Mcgraw on 01-17-2022 SARS-CoV+SARS-CoV-2 (COVID-19) Ag IA.rapid Ql (Resp) Negative Negative [facility] Comment on above: This is a duplicate Elizabeth SARS Antigen (JOSEFINA) result to be used for statistical tracking purpose only. Laboratory - Microbiology an d Antimicrobial susceptibilityOrdered By: Troy Mcgraw on 01-17-2022 SARS-CoV-2 (COVID-19) RNA JC+probe Ql (Unsp spec) N/A [facility] XR Foot Complete Right*on XR Foot Complete Right* COMPARISON: None available HISTORY: Fifth digit toe pain. TECHNIQUE: AP, lateral and oblique views of the foot obtained. FINDINGS: No acute fracture or dislocation. Osseous erosions of the distal aspect of the fifth proximal phalanx and proximal aspect of the fifth middle phalanx with adjacent soft tissue edema. Mild degenerative changes of the midfoot. Mild degenerative changes at the first metatarsophalangeal joint. IMPRESSION: Erosions of the fifth proximal and mid phalanx most concerning for osteomyelitis. Report reported and signed by CECE FELIX on 01/17/2022 1920 Normal [facility] Amylaseon 10-15-2021 SABINA 24 U/L Low 28-100 [facility] Comment on above: Performed By: #### L IP, SABINA #### [facility] [address], [place] [id number] Lipaseon 10-15-2021 LIP2 12 IU/L Low 13-60 [facility] Comment on above: Performed By: #### L IP, SABINA #### [facility] [address], [place] [id number] Q - CULTURE,URINE,ROUTINEon 10-15-2021 CULTURE, URINE, ROUTINE SEE NOTE Normal [facility] Comment on above: Order Comment: [facility] performed at: [employer] [employer] [facility], [address] [place] [address], [address] [place] [address], [id number], [employer] Driver: Francisco Javier Torres MD [facility] Collection Date/Time: [facility] Results Received Date/Time: [facility] Reported Date/Time: Result Comment: CULT URE, URINE, ROUTINE Micro Number: [id number] Test Status: Final Specimen Source: Urine Specimen Quality: Adequate Result: Mixed genital ankit isolated. These superficial bacteria are not indicative of a urinary tract infection. No further organism identification is warranted on this specimen. If clinically indicated, recollect clean-catch, mid-stream urine and transfer immediately to Urine Culture Transport Tube. Performed By: #### [id number] #### [facility] Default [address] [place] [id number] Basic Metabolic Panelon 10-01 Anion gap [Moles/Vol] 18 mmol/L Normal 12-20 [facility] [place] [facility] Comment on above: Result Comment: Effe ctive 09/05/2019 reference range changed. Performed By: #### B MP #### [facility] [address], [place] [id number] Calcium [Mass/Vol] 10.9 mg/dL High 8.6-10.2 [facility] [place] [facility] Comment on above: Performed By: #### B MP #### [facility] [address], [place] [id number] Chloride [Moles/Vol] 100 mmol/L Normal 98-107 [facility] Comment on above: Performed By: #### B MP #### [facility] [address] [place] [id number] CO2 [Moles/Vol] 29 mmol/L Normal 20-31 [facility] Comment on above: Performed By: #### B MP #### [facility] [address] [facility] [place] [id number] Creatinine [Mass/Vol] 1.5 mg/dL High 0.6-1.4 [facility] Specialist Comment on above: Performed By: #### B MP #### [facility] [address] [facility] [place] [id number] eGFRAA 40 mL/min/1.73m2 Low >60 [facility] Comment on above: Performed By: #### B MP #### [facility] [address] [facility] [place] [id number] eGFRNAA 33 mL/min/1.73m2 Low >60 [facility] Comment on above: Performed By: #### B MP #### [facility] [address] [facility] [place] [id number] Glucose [Mass/Vol] 105 mg/dL High 65-99 [facility] [place] [facility] Comment on above: Result Comment: For FASTING Glucose --- ADA reference ranges: Normal 65-99 mg/dl Prediabetes 100-125 Diabetes >/= 126 Performed By: #### B MP #### [facility] [address] [facility] [place] [id number] Potassium [Moles/Vol] 3.8 mmol/L Normal 3.5-5.5 [facility] [place] [facility] Comment on above: Performed By: #### B MP #### [facility] [address], [place] [id number] Sodium [Moles/Vol] 143 mmol/L Normal 135-146 [facility] Comment on above: Performed By: #### B MP #### [facility] [address], [place] [id number] Urea nitrogen [Mass/Vol] 24 mg/dL Normal 7-25 [facility] Comment on above: Performed By: #### B MP #### [facility] [address], [place] [id number] Complete Blood Counton 09-30 Erythrocyte distribution width (RBC) [Ratio] 11.3 % Normal 11.0-15.0 [facility] Comment on above: Performed By: #### C BC, CMP #### [facility] [address], [place] [id number] Hematocrit (Bld) [Volume fraction] 33.2 % Low 35.0-47.0 [facility] Comment on above: Performed By: #### C BC, CMP #### [facility] [address], [place] [id number] Hemoglobin (Bld) [Mass/Vol] 11.4 g/dL Low 11.6-15.5 [facility] Comment on above: Performed By: #### C BC, CMP #### [facility] [address], [place] [id number] MCH (RBC) [Entitic mass] 30.9 pg Normal 27.0-33.0 [facility] Comment on above: Performed By: #### C BC, CMP #### [facility] [address], [place] [id number] MCHC (RBC) [Mass/Vol] 34.3 g/dL Normal 32.0-36.0 [facility] Comment on above: Performed By: #### C BC, CMP #### [facility] [address], [place] [id number] MCV (RBC) [Entitic vol] 90 fL Normal 80-100 [facility] Comment on above: Performed By: #### C BC, CMP #### [facility] [address], [place] [id number] Platelet mean volume (Bld) [Entitic vol] 12.00 fL Normal 7.50-12.50 [facility] Comment on above: Performed By: #### C BC, CMP #### [facility] [address], [place] [id number] Platelets (Bld) [#/Vol] 224 10*3/uL Normal 140-400 [facility] Comment on above: Performed By: #### C BC, CMP #### [facility] [address], [place] [id number] RBC (Bld) [#/Vol] 3.69 10*6/uL Low 3.90-5.20 [facility] Comment on above: Performed By: #### C BC, CMP #### [facility] [address], [place] [id number] RDW-SD 37.3 fL Normal 37.0-50.0 [facility] Comment on above: Performed By: #### C BC, CMP #### [facility] [address], [place] [id number] WBC (Bld) [#/Vol] 7.0 10*3/uL Normal 3.8-11.0 [facility] Specialist Comment on above: Performed By: #### C BC, CMP #### [facility] [address], [place] [id number] Comprehensive Metabolic [facility] 09-30-2021 Albumin [Mass/Vol] 4.5 g/dL Normal 3.6-5.1 [facility] Specialist Comment on above: Performed By: #### C BC, CMP #### [facility] [address], [place] [id number] Albumin/Globulin [Mass ratio] 2.6 {ratio} High 1.0-2.5 [facility] Comment on above: Performed By: #### C BC, CMP #### [facility] [address], [place] [id number] ALP [Catalytic activity/Vol] 57 U/L Normal 35-119 [facility] Comment on above: Performed By: #### C BC, CMP #### [facility] [address] [place], [place] [id number] ALT [Catalytic activity/Vol] 10 U/L Normal 6-33 [facility] Comment on above: Result Comment: 07/31 Female reference range changed. Performed By: #### C BC, CMP #### [facility] [address] [place], [place] [id number] Anion gap [Moles/Vol] 22 mmol/L High 12-20 [facility] Comment on above: Result Comment: Effe ctive 09/05/2019 reference range changed. Performed By: #### C BC, CMP #### [facility] [address] [place], [place] [id number] AST [Catalytic activity/Vol] 17 U/L Normal 9-34 [facility] Comment on above: Performed By: #### C BC, CMP #### [facility] [address] [place], [place] [id number] Bilirubin [Mass/Vol] 0.31 mg/dL Normal 0.30-1.20 [facility] Comment on above: Performed By: #### C BC, CMP #### [facility] [address] [place], [place] [id number] BUN/CREA 17 Ratio Normal 6-22 [facility] Comment on above: Performed By: #### C BC, CMP #### [facility] [address] [place], [place] [id number] Calcium [Mass/Vol] 10.8 mg/dL High 8.6-10.2 [facility] Comment on above: Performed By: #### C BC, CMP #### [facility] [address] [place], [place] [id number] Chloride [Moles/Vol] 99 mmol/L Normal 98-107 [facility] Comment on above: Performed By: #### C BC, CMP #### [facility] [address] [place], [place] [id number] CO2 [Moles/Vol] 29 mmol/L Normal 20-31 [facility] Comment on above: Performed By: #### C BC, CMP #### [facility] [address] [place], [place] [id number] Creatinine [Mass/Vol] 2.8 mg/dL High 0.6-1.4 Nor [facility] [employer] Comment on above: Performed By: #### C BC, CMP #### [facility] [address], [place] [id number] eGFRAA 19 mL/min/1.73m2 Low >60 [facility] [employer] Comment on above: Performed By: #### C BC, CMP #### [facility] [address], [place] [id number] eGFRNAA 16 mL/min/1.73m2 Low >60 [facility] Comment on above: Performed By: #### C BC, CMP #### [facility] [address], [place] [id number] Globulin (S) [Mass/Vol] 1.7 g/dL Low 1.9-3.7 [facility] Comment on above: Performed By: #### C BC, CMP #### [facility] [address], [place] [id number] Glucose [Mass/Vol] 109 mg/dL High 65-99 [facility] [employer] Comment on above: Result Comment: For FASTING Glucose --- ADA reference ranges: Normal 65-99 mg/dl Prediabetes 100-125 Diabetes >/= 126 Performed By: #### C BC, CMP #### [facility] [address], [place] [id number] Potassium [Moles/Vol] 3.2 mmol/L Low 3.5-5.5 [facility] [employer] Comment on above: Performed By: #### C BC, CMP #### [facility] [address], [place] [id number] Protein [Mass/Vol] 6.2 g/dL Normal 6.1-8.1 [facility] [place] [facility] [employer] Comment on above: Performed By: #### C BC, CMP #### [facility] [address], [place] [id number] Sodium [Moles/Vol] 146 mmol/L Normal 135-146 [facility] [place] [facility] [employer] Comment on above: Performed By: #### C BC, CMP #### [facility] [address], [place] [id number] Urea nitrogen [Mass/Vol] 47 mg/dL High 7-25 [facility] [employer] Comment on above: Performed By: #### C BC, CMP #### [facility] [address], [place] [id number] Office Visit (Cardiology)on 06-27-2021 Follow-up visit Diagnoses/Problems Assessed Paroxysmal SVT (supraventricular tachycardia) (427.0) (I47.1) Class 1 obesity with body mass index (BMI) of 30.0 to 30.9 in adult (278.00,V85.30) (E66.9,Z68.30) Orders Class 1 obesity with body mass index (BMI) of 30.0 to 30.9 in adult Healthy Weight Tips; Status:Complete - Retrospective Authorization; Done: 27Jun2021 Follow up in 1 year. .fu1 Patient Instructions By signing my name below, IRoberta Lpn,Rochelleibeber, attest that this documentation has been prepared under the direction and in the presence of Dr. Sam Machado MD. All medical record entries made by the Scribe were at my direction and personally dictated by me. I have reviewed the chart and agree that the record accurately reflects my personal performance of the history, physical exam, discussion and plan. Please bring all medicines, vitamins, and herbal supplements with you when you come to the office. Prescriptions will not be filled unless you are compliant with your follow up appointments or have a follow up appointment scheduled as per instruction of your physician. Refills should be requested at the time of your visit. Chief Complaint ANA EDWARDS is being seen for an annual follow-up of. Patient is in the office for follow-up for the problems noted below. She reports no palpitations suggestive of tachycardia. She has had frequent falls due to balance issues even though she uses a walker. Education prevent future falls discussed with the patient. She had recent blood work through her PCP which I reviewed with her and there was no concern noted. Her physical examination today was only remarkable for obesity. ASSESSMENT AND PLAN: 1. Supraventricular tachycardia with no recurrences, on beta-cheryl therapy. Along with magnesium oxide. 2. Premature atrial contractions, suppressed by beta-cheryl therapy and remains asymptomatic. Magnesium oxide help suppress PACs as well 3. Hypertension, under control on beta cheryl, hydrochlorothiazide. 4. Obesity. Encouraged more control of the weight by cutting back calorie intake. 5. Hyperlipidemia, under control, on Zetia. 6. Hypothyroidism, under control, on replacement therapy. 7. Rheumatoid arthritis, under control on Plaquenil. Annual 8. At risk for falls, education provided followup will be scheduled in 1 year Sam Machado MD, [facility] Surgical History Problems History of Cholecystectomy History of Complete colonoscopy History of Hysterectomy History of Knee replacement Current Meds Medication NameInstruction Calcium TABSdaily Carvedilol 6.25 MG Oral TabletTake one tablet in the morning and 2 tablets in the evening Cyclobenzaprine HCl - 5 MG Oral Tablet Ezetimibe 10 MG Oral TabletTake 1 tablet daily Fish Oil 1000 MG Oral Capsule1 daily Furosemide 20 MG Oral TabletTAKE 1 TABLET DAILY. Gabapentin 300 MG Oral Capsule hydroCHLOROthiazide 25 MG Oral TabletTAKE 1 TABLET DAILY. Hydroxychloroquine Sulfate 200 MG Oral TabletTAKE 1 TABLET DAILY. Levothyroxine Sodium 75 MCG Oral Tablet Magnesium 400 MG Oral Tablet1 daily Meloxicam 15 MG Oral Tablet Vitamin D3 SPKE0003 mg daily Allergies Medication Penicillins Hives;; Recorded By: Jannie Spaulding; 06/26/2021 10:41:47 AM Anna NX TABS Recorded By: Jannie Spaulding; 06/26/2021 10:41:47 AM Social History Problems Daily caffeine consumption Former smoker (V15.82) (Z87.891) No illicit drug use Rarely consumes alcohol (V49.89) (Z78.9) Review of Systems Constitutional: not feeling tired. Eyes: no eyesight problems. ENT: no hearing loss and no nosebleeds. Cardiovascular: no intermittent leg claudication and as noted in HPI. Respiratory: shortness of breath during exertion, but no chronic cough. Gastrointestinal: no change in bowel habits and no blood in stools. Genitourinary: no urinary frequency. Skin: no skin rashes. Neurological: no seizures and no frequent falls. Psychiatric: no depression and not suicidal. All other systems have been reviewed and are negative for complaint. Vitals Vital Signs Recorded: 27Jun2021 09:55AM Heart Rate56, L Radial Woywiwfu297, LUE, Supine Tqyzmylyr41, LUE, Supine Height5 ft 1 in Bpuhvp987 lb BMI Wjanazthmf99.99 kg/m2 BSA Calculated1.74 Tobacco Useb) No Fall Screeningb) One or more falls in the last year Physical Exam Constitutional: alert and in no acute distress. Neck: neck is supple, symmetric, trachea midline, no masses and no thyromegaly . Pulmonary: no increased work of breathing or signs of respiratory distress and lungs clear to auscultation. Cardiovascular: carotid pulses 2+ bilaterally with no bruit , JVP was normal, no thrills , regular rhythm, normal S1 and S2, no murmurs , pedal pulses 2+ bilaterally and no edema . Abdomen: abdomen non-tender, no masses and no hepatomegaly . Skin: skin warm and dry, normal skin turgor . Psychiatric judgment and insight is normal and oriented to person, place and time (more content not included)... Normal [facility] Tobacco Screening.on 021 Fall risk assessment b) One or more fall s in the last year [facility] DO Work Phone: Tobacco use status CP b) No M Located [facility] DO Work Phone: Vital Signs Date Time Vital Sign Value Performing Clinician Facility 07-14-2024 08:38-0500 Body height 154.94 cm Karen Hill NP-C Work Phone: [facility] 07-14-2024 08:38-0500 Body mass index (BMI) [Ratio] 28.3 kg/m2 Karen Hill NP-C Work Phone: [facility] 07-14-2024 08:38-0500 Body temperature 97 [degF] Karen Hill CLINICAL DOCUMENTATION IMPROVEMENT SPECIALIST-C Work Phone: [facility] 07-14-2024 08:38-0500 Body weight 68.03 kg Karen Hill NP-C Work Phone: [facility] 07-14-2024 08:38-0500 Diastolic blood pressure 82 mm[Hg] Karen Hill NP-C Work Phone: [facility] 07-14-2024 08:38-0500 Heart rate 56 /min Karen Hill CLINICAL DOCUMENTATION IMPROVEMENT SPECIALIST-C Work Phone: [facility] 07-14-2024 08:38-0500 Respiratory rate 18 /min Karen Hill CLINICAL DOCUMENTATION IMPROVEMENT SPECIALIST-C Work Phone: [facility] 07-14-2024 08:38-0500 SaO2% (BldA) [Mass fraction] 98 % Karen Hill CLINICAL DOCUMENTATION IMPROVEMENT SPECIALIST-C Work Phone: [facility] 07-14-2024 08:38-0500 Systolic blood pressure 160 mm[Hg] Karen Hill CLINICAL DOCUMENTATION IMPROVEMENT SPECIALIST-C Work Phone: [facility] 07-20-2023 11:00-0500 Body height 154.94 cm Sakshi Rusty Other [employer] Other 07-20-2023 11:00-0500 Body mass index (BMI) [Ratio] 25.54 kg/m2 Sakshi Rusty Other [employer] Other 07-20-2023 11:00-0500 Body temperature 97.3 [degF] Sakshi Rusty Other [employer] Other 07-20-2023 11:00-0500 Body weight 61.33 kg Sakshi Rusty Other [employer] Other 07-20-2023 11:00-0500 Diastolic blood pressure 75 mm[Hg] Sakshi Rusty Other [employer] Other 07-20-2023 11:00-0500 Respiratory rate 18 /min Sakshi Rusty Other [employer] Other 07-20-2023 11:00-0500 SaO2% (BldA) [Mass fraction] 98 % Sakshi Rusty Other [employer] Other 07-20-2023 11:00-0500 Systolic blood pressure 117 mm[Hg] Sakshi Ojeda Other [facility] [employer] Other 06-18-2023 23:50-0400 Diastolic blood pressure 76 mm[Hg] DO Fan Lexi Work Phone: [facility] 06-18-2023 23:50-0400 Heart rate 58 /min DO Fan Lexi Work Phone: [facility] 06-18-2023 23:50-0400 Respiratory rate 24 /min DO Fan Lexi Work Phone: [facility] 06-18-2023 23:50-0400 SaO2% (BldA) [Mass fraction] 97 % DO Fan Lexi Work Phone: [facility] 06-18-2023 23:50-0400 Systolic blood pressure 147 mm[Hg] DO Fan Lexi Work Phone: [facility] 06-18-2023 20:49-0400 Body temperature 98.5 [degF] DO Fan Lexi Work Phone: [facility] 06-18-2023 20:48-0400 Body height 154.94 cm DO Fan Lexi Work Phone: [facility] 06-18-2023 20:48-0400 Body weight 63.5 kg DO Fan Lexi Work Phone: [facility] 11-19-2022 17:40-0400 Diastolic blood pressure 63 mm[Hg] DO Fan Lexi Work Phone: [facility] 11-19-2022 17:40-0400 Heart rate 60 /min DO Fan Lexi Work Phone: [facility] 11-19-2022 17:40-0400 Respiratory rate 16 /min DO Fan Lexi Work Phone: [facility] 11-19-2022 17:40-0400 SaO2% (BldA) [Mass fraction] 99 % DO Fan Lexi Work Phone: [facility] 11-19-2022 17:40-0400 Systolic blood pressure 132 mm[Hg] DO Fan Elliott Work Phone: [facility] 11-19-2022 14:25-0400 Body height 156.21 cm DO Fan Elliott Work Phone: [facility] 11-19-2022 14:25-0400 Body weight 65.1 kg DO Fan Elliott Work Phone: [facility] 11-19-2022 14:24-0400 Body temperature 97.2 [degF] DO Fan Elliott Work Phone: [facility] 07-28-2022 10:20-0500 Body height 154.94 cm Sakshi Rusty Other [employer] Other 07-28-2022 10:20-0500 Body mass index (BMI) [Ratio] 27.13 kg/m2 Sakshi Rusty Other [employer] Other 07-28-2022 10:20-0500 Body temperature 96.9 [degF] Sakshi Rusty Other [employer] Other 07-28-2022 10:20-0500 Body weight 65.14 kg Sakshi Rusty Other [employer] Other 07-28-2022 10:20-0500 Diastolic blood pressure 80 mm[Hg] Sakshi Rusty Other [employer] Other 07-28-2022 10:20-0500 Respiratory rate 18 /min Sakshi Rusty Other [employer] Other 07-28-2022 10:20-0500 Systolic blood pressure 134 mm[Hg] Sakshi Rusty Other [facility] [employer] Other 06-26-2022 09:23-0400 Body height 154.94 cm Fan Elliott Work Phone: [facility] 250 DO Work Phone: 06-26-2022 09:23-0400 Body mass index (BMI) [Ratio] 26.83 kg/m2 Fan Elliott Work Phone: [facility] 250 DO Work Phone: 06-26-2022 09:23-0400 Body surface area Derived from formula 1.63 m2 Fan Elliott Work Phone: [facility] 250 DO Work Phone: 06-26-2022 09:23-0400 Body weight 64.41 kg Fan Elliott Work Phone: [facility] 250 DO Work Phone: 06-26-2022 09:23-0400 Diastolic blood pressure 74 mm[Hg] Fan Elliott Work Phone: [facility] 250 DO Work Phone: 06-26-2022 09:23-0400 Heart rate 72 /min Fan Elliott Work Phone: [facility] 250 DO Work Phone: 06-26-2022 09:23-0400 Systolic blood pressure 138 mm[Hg] Fan Elliott Work Phone: [facility] 250 DO Work Phone: 06-19-2022 15:03-0400 Body weight 65.9 kg DO Fan Elliott Work Phone: [facility] 06-19-2022 15:03-0400 Diastolic blood pressure 68 mm[Hg] DO Fan Elliott Work Phone: [phone] 06-19-2022 15:03-0400 Heart rate 68 /min DO Fan Lexi Work Phone: [facility] 06-19-2022 15:03-0400 Respiratory rate 20 /min DO Fan Lexi Work Phone: [facility] 06-19-2022 15:03-0400 SaO2% (BldA) [Mass fraction] 99 % DO Fan Merloser Work Phone: [facility] 06-19-2022 15:03-0400 Systolic blood pressure 128 mm[Hg] DO Fan Lexi Work Phone: [facility] 03-20-2022 14:16-0400 Body temperature 97.8 [degF] DO Fan Merloser Work Phone: [facility] 03-20-2022 14:16-0400 Body weight 68.94 kg DO Fan Merloser Work Phone: [facility] 03-20-2022 14:16-0400 Diastolic blood pressure 84 mm[Hg] DO Fan Merloser Work Phone: [facility] 03-20-2022 14:16-0400 Heart rate 81 /min DO Fan Merloser Work Phone: [facility] 03-20-2022 14:16-0400 Respiratory rate 16 /min DO Fan Merloser Work Phone: [facility] 03-20-2022 14:16-0400 SaO2% (BldA) [Mass fraction] 97 % DO Fan Merloser Work Phone: [facility] 03-20-2022 14:16-0400 Systolic blood pressure 133 mm[Hg] DO Fan Lexi Work Phone: [facility] 03-06-2022 11:04-0400 Body height 154.94 cm DO Fan Lexi Work Phone: [facility] 02-19-2022 14:15-0400 Body height 154.94 cm Peterson Mejia Other [employer] Other 02-19-2022 14:15-0400 Body mass index (BMI) [Ratio] 28.15 kg/m2 Peterson Mejia Other [employer] Other 02-19-2022 14:15-0400 Body temperature 98.1 [degF] Peterson Mejia Other [employer] Other 02-19-2022 14:15-0400 Body weight 67.59 kg Peterson Mejia Other [employer] Other 02-19-2022 14:15-0400 Diastolic blood pressure 66 mm[Hg] Peterson Mejia Other [employer] Other 02-19-2022 14:15-0400 Systolic blood pressure 133 mm[Hg] Peterson Mejia Other [employer] Other 01-21-2022 08:18-0400 Body temperature 98.5 [degF] DO Fan Elliott Work Phone: [facility] 01-21-2022 08:18-0400 Diastolic blood pressure 64 mm[Hg] DO Fan Elliott Work Phone: [facility] 01-21-2022 08:18-0400 Heart rate 101 /min DO Fan Merloser Work Phone: [facility] 01-21-2022 08:18-0400 Respiratory rate 16 /min DO Fan Merloser Work Phone: [facility] 01-21-2022 08:18-0400 SaO2% (BldA) [Mass fraction] 98 % DO Fan Merloser Work Phone: [facility] 01-21-2022 08:18-0400 Systolic blood pressure 124 mm[Hg] DO Fan Merloser Work Phone: [facility] 01-21-2022 06:00-0400 Body weight 67.9 kg DO Fan Elliott Work Phone: [facility] 01-20-2022 12:36-0400 Body height 154.94 cm DO Fan Elliott Work Phone: [facility] 01-18-2022 01:39-0400 Body mass index (BMI) [Ratio] 29 kg/m2 DO Fan Elliott Work Phone: [facility] 12-03-2021 15:15-0400 Body height 154.94 cm Abhijeet Guillen Other [facility] [employer] Other 12-03-2021 15:15-0400 Body mass index (BMI) [Ratio] 29.47 kg/m2 Abhijeet Guillen Other [facility] [employer] Other 12-03-2021 15:15-0400 Body weight 70.76 kg Abhijeet Guillen Other [facility] [employer] Other 12-03-2021 15:15-0400 Diastolic blood pressure 69 mm[Hg] Abhijeet Guillen Other [employer] Other 12-03-2021 15:15-0400 Systolic blood pressure 122 mm[Hg] Abhijeet Guillen Other [facility] [employer] Other 06-27-2021 09:55-0400 Body height 154.94 cm Fan Elliott Work Phone: [facility] [place] 250 DO Work Phone: 06-27-2021 09:55-0400 Body mass index (BMI) [Ratio] 30.99 kg/m2 Fan Elliott Work Phone: [facility] [place] 250 DO Work Phone: 06-27-2021 09:55-0400 Body surface area Derived from formula 1.74 m2 Fan Elliott Work Phone: [facility] 250 DO Work Phone: 06-27-2021 09:55-0400 Body weight 74.39 kg Fan Elliott Work Phone: [facility] 250 DO Work Phone: 06-27-2021 09:55-0400 Diastolic blood pressure 70 mm[Hg] Fan Elliott Work Phone: [facility] 250 DO Work Phone: 06-27-2021 09:55-0400 Heart rate 56 /min Fan Elliott Work Phone: [facility] 250 DO Work Phone: 06-27-2021 09:55-0400 Systolic blood pressure 110 mm[Hg] Fan Elliott Work Phone: [facility] 250 DO Work Phone: Encounters Encounter Date Encounter Type Care Provider Facility Start: 08-18-2024 End: 08-18-2024 Telephone encounter Ifeoma Meade [facility] Work Phone: [facility] Start: 08-16-2024 End: 08-16-2024 ambulatory [facility] Start: 08-16-2024 End: 08-16-2024 ambulatory [facility] Start: 08-10-2024 End: 08-10-2024 Bamboo flowsheet Peewee MARIE Work Phone: [facility] Start: 08-10-2024 End: 08-10-2024 Bamboo flowsheet Peewee MARIE Work Phone: [facility] Start: 08-10-2024 End: 08-10-2024 Office outpatient visit 15 minutes Peewee MARIE Work Phone: [facility] Comment on above: Left hip pain (Prima ry Dx); Trochanteric bursitis of left hip; Lumbar back pain with radiculopathy affecting left lower extremity; Sacroiliac joint pain Start: 08-10-2024 End: 08-10-2024 ambulatory PEEWEE GRESHAM Not Available Start: 08-04-2024 End: 08-04-2024 Telephone encounter aKren Hill CLINICAL DOCUMENTATION IMPROVEMENT SPECIALIST Work Phone: [facility] Start: 07-20-2024 End: 07-20-2024 Bamboo flowsheet Peewee Gresham PA Work Phone: [facility] Start: 07-20-2024 End: 07-20-2024 Bamboo flowsheet Peewee Gresham PA Work Phone: [facility] Start: 07-20-2024 End: 07-20-2024 Office outpatient visit 25 minutes Peewee MARIE Work Phone: [facility] Comment on above: Left hip pain (Prima ry Dx); Trochanteric bursitis of left hip; Lumbar back pain with radiculopathy affecting left lower extremity Start: 07-20-2024 End: 07-20-2024 ambulatory PEEWEE GRESHAM Not Available Start: 07-14-2024 End: 07-14-2024 ambulatory Karen Hill CLINICAL DOCUMENTATION IMPROVEMENT SPECIALIST-C Work Phone: [facility] Work Phone: Start: 07-14-2024 End: 07-14-2024 Patient encounter procedure Karen Hill NP-C Work Phone: [facility] [place] Work Phone: Start: 07-05-2024 End: 07-05-2024 Patient encounter procedure GIL Hill Work Phone: [facility] Start: 07-05-2024 End: 07-05-2024 ambulatory GIL Hill Work Phone: [facility] Work Phone: Start: 06-13-2024 End: 07-10-2024 Refill Karen Hill CLINICAL DOCUMENTATION IMPROVEMENT SPECIALIST Work Phone: [facility] Comment on above: Vitamin D deficiency (Primary Dx) Start: 05-27-2024 End: 05-27-2024 Telephone encounter Karen Hill CLINICAL DOCUMENTATION IMPROVEMENT SPECIALIST Work Phone: [facility] Start: 04-28-2024 End: 04-29-2024 Emergency department patient visit CHARLOTTE BARNEY [facility] Start: 04-28-2024 End: 04-28-2024 Emergency department patient visit YARELIS Antonio RODRIGUEZ [facility] Start: 04-19-2024 End: 04-19-2024 Bamboo flowsheet Ifeoma Maria Luisa Renuka CCC-A Work Phone: [facility] Start: 04-19-2024 End: 04-19-2024 Bamboo flowsheet Ifeoma Maria Luisa Renuka CCC-A Work Phone: [facility] Start: 04-19-2024 End: 04-19-2024 Clinical Support Ifeoma Maria Luisa Renuka CCC-A Work Phone: [facility] Comment on above: Sensorineural hearin g loss, bilateral (Primary Dx) Start: 04-19-2024 End: 04-19-2024 ambulatory IFEOMA MEADE Not Available Start: 03-14-2024 End: 03-14-2024 ambulatory MARIE YANEZ Not Available Start: 03-10-2024 End: 03-10-2024 ambulatory YARELIS ECHEVERRIA Not Available Start: 03-07-2024 End: 03-07-2024 ambulatory FAN NAIDU Not Available Start: 03-02-2024 End: 03-02-2024 ambulatory SILVESTRE COOK Not Available Start: 12-02-2023 End: 12-02-2023 ambulatory MARIE YANEZ Not Available Start: 11-24-2023 End: 11-24-2023 ambulatory PEEWEE GRESHAM [facility] Start: 11-10-2023 End: 11-10-2023 ambulatory PEEWEE GRESHAM Not Available Start: 11-04-2023 End: 11-04-2023 ambulatory GRANT JANE Not Available Start: 10-27-2023 End: 10-27-2023 ambulatory FAN ELLIOTT [facility] Start: 07-20-2023 End: 07-20-2023 ambulatory Sakshi Hudsonr Other [employer] Other Start: 07-20-2023 Office outpatient vi sit 25 minutes Sakshi Rusty [facility] Start: 07-14-2023 End: 07-14-2023 ambulatory DO Fan Elliott Work Phone: [facility] Work Phone: Start: 07-14-2023 End: 07-14-2023 Patient encounter procedure DO Fan Elliott Work Phone: [facility] Start: 07-07-2023 End: 07-07-2023 ambulatory [facility] Start: 06-18-2023 End: 06-19-2023 Emergency department patient visit DO Fan Elliott Work Phone: [facility] Work Phone: Start: 01-27-2023 End: 01-27-2023 ambulatory DO Fan Elliott Work Phone: [facility] Work Phone: Start: 01-27-2023 End: 01-27-2023 Patient encounter procedure DO Fan Elliott Work Phone: [facility] Start: 12-08-2022 End: 12-08-2022 ambulatory DO Fan Elliott Work Phone: [facility] Work Phone: Start: 12-08-2022 End: 12-08-2022 Patient encounter procedure DO Fan Lexi Work Phone: [facility] Start: 11-19-2022 End: 11-19-2022 Emergency department patient visit DO Fan Elliott Work Phone: [facility] Work Phone: Start: 07-31-2022 End: 07-31-2022 ambulatory DO Fan Elliott Work Phone: [facility] Work Phone: Start: 07-31-2022 End: 07-31-2022 Patient encounter procedure DO Fan Elliott Work Phone: [facility] Start: 07-28-2022 End: 07-28-2022 ambulatory Sakshi Rusty Other [facility] [employer] Other Start: 07-28-2022 Office outpatient ne w 45 minutes Sakshi Rusty [facility] Start: 07-03-2022 End: 07-03-2022 ambulatory DO Fan Elliott Work Phone: [facility] Work Phone: Start: 07-03-2022 End: 07-03-2022 Registered Recurring DO Fan Elliott Work Phone: [facility] Start: 06-26-2022 Office outpatient vi sit 25 minutes Fan Elliott Work Phone: [facility] 250 DO Work Phone: Start: 06-26-2022 Registered Recurring DO Fan bradford Work Phone: [facility] Start: 06-26-2022 End: 06-26-[address] Sam Machado Facility: Start: 06-26-2022 End: 06-26-2022 Patient encounter procedure DO Fna Elliott Work Phone: [facility] Start: 06-19-2022 End: 06-19-2022 ambulatory DO Fan Elliott Work Phone: [facility] Work Phone: Start: 06-19-2022 End: 10-20-2022 Registered Recurring DO Fan Elliott Work Phone: [facility] Start: 05-12-2022 End: 05-12-2022 Patient encounter procedure DO Fan Elliott Work Phone: [facility] Start: 04-29-2022 End: 04-29-2022 ambulatory Cece Silvio II Other [employer] Other Start: 04-29-2022 Telephone encounter Cece Silvio II [facility] [place] [facility] Start: 04-10-2022 End: 04-10-2022 Patient encounter procedure DO Fan Elliott Work Phone: [facility] Start: 04-09-2022 End: 04-09-2022 ambulatory Cece Yamhill II Other [employer] Other Start: 04-09-2022 Office outpatient ne w 45 minutes Cece Yamhill II [facility] [place] [facility] Start: 04-09-2022 End: 04-09-2022 Patient encounter procedure DO Fan Elliott Work Phone: [facility] [place] [facility] Start: 03-20-2022 End: 03-20-2022 Registered Recurring DO Fan Elliott Work Phone: [facility] Start: 02-19-2022 End: 02-19-2022 ambulatory Peterson Mejia Other [employer] Other Start: 02-19-2022 Office outpatient vi sit 25 minutes Peterson Mejia [facility] Start: 01-21-2022 End: 01-21-2022 ambulatory Peewee Mondragon Other [employer] Other Start: 01-21-2022 Telephone encounter Peewee dotson [facility] [employer] [facility] Start: 01-18-2022 End: 01-21-2022 Evaluation and management of inpatient DO Fan Lexi Work Phone: [facility] Start: 12-03-2021 End: 12-03-2021 ambulatory Abhijeet Guillen Other [facility] [employer] Other Start: 12-03-2021 Office outpatient ne w 30 minutes Abhijeet Guillen [facility] Start: 06-27-2021 Office outpatient vi sit 25 minutes Fan Elliott Work Phone: [facility] 250 DO Work Phone: Start: 06-27-[address] Sam Machado Facility: Start: 11-03-2018 Patient encounter procedure SAM MACHADO Facility:[id number] Procedures Date Procedure Procedure Detail Performing Clinician Start: 07-20-2024 Arthrocentesis aspir&/inj major jt/bursa w/o us Peewee Gresham PA Work Phone: Start: 06-18-2023 CT angiography of head DO Fan Elliott Work Phone: Start: 06-18-2023 CT angiography of neck vessels DO Fan bradford Work Phone: Start: 06-18-2023 CT of head without contrast DO Fan hughes Work Phone: Start: 06-18-2023 Plain chest X-ray DO Fan Elliott Work Phone: Start: 12-31-2022 History of operative procedure on knee History of bilateral knee replacement Ifeoma Meade [facility] Work Phone: Start: 11-19-2022 Computed tomography of abdomen and pelvis with contrast DO Fan Elliott Work Phone: Start: 05-12-2022 Radionuclide three-phase bone study DO Fan Elliott Work Phone: Start: 04-09-2022 X-ray of right knee DO Fan Elliott Work Phone: Start: 01-19-2022 Pulse volume recorder pneumoplethysmography DO Fan Elliott Work Phone: Start: 01-18-2022 MRI of right foot DO Fan Elliott Work Phone: Start: 01-17-2022 CT of right foot DO Fan Elliott Work Phone: Arthroplasty of knee Fan Elliott Work Phone: Blood culture for ba cteria, including anaerobic screen DO Fan Elliott Work Phone: Cholecystectomy Fan Justice r Work Phone: Hysterectomy Fan Elliott Work Phone: SARS Antigen (LFIA) DO Fan Elliott Work Phone: Total colonoscopy Fan mistry Work Phone: Urine culture DO Fan Elliott Work Phone: Plan of Treatment Date Care Activity Detail Author Start: 08-10-2024 End: 08-10-2024 Patient encounter procedure [facility] Comment on above: Left hip pain (Prima ry Dx); Trochanteric bursitis of left hip; Lumbar back pain with radiculopathy affecting left lower extremity Start: 07-20-2024 End: 07-20-2024 Patient encounter procedure 07/20/2024 1:45 PM EST Office Visit [facility] [address] [place] [address] Peewee Gresham, [place] [address] [address] Low back pain, unspecified back pain laterality, unspecified chronicity, unspecified whether sciatica present (Primary Dx) [facility] Comment on above: Low back pain, unspe cified back pain laterality, unspecified chronicity, unspecified whether sciatica present (Primary Dx) Start: 05-23-2024 End: 05-23-2024 Clinical Support 05/23/2024 11:15 AM EDT Clinical Support [facility] [address] [place] [id number] Ifeoma Meade, [facility] [address] [place] [address] [facility] Start: 05-01-2024 Influenza vaccination Influenza Vacc ine (#1) [facility] Start: 04-19-2024 End: 04-19-2024 Clinical Support 04/19/2024 9:00 AM EDT Clinical [facility] [address] [place] [address] Ifeoma Meade, [facility] [address] [facility] [place] [address] Arrived [facility] Comment on above: Arrived Start: 07-07-2023 FUV, Provider: Sam Machado, Status: Pen, Time: 9:30 AM FUV, Provider: Sam Machado, Status: Pen, Time: 9:30 AM [facility] 250 DO Work Phone: Start: 06-18-2023 CT angiography of head [facility] Start: 06-18-2023 CT angiography of ne ck vessels [facility] Start: 06-18-2023 CT of head without contrast CT head/brain wo con [facility] Start: 06-18-2023 CT Unspecified body region WO contrast [facility] Start: 06-18-2023 Plain chest X-ray XR chest 1V portab le [facility] Start: 06-18-2023 XR Chest Single view [facility] Start: 06-26-2022 FUV, Provider: Sam Machado, Status: Pen, Time: 9:30 AM [facility] 250 DO Work Phone: Start: 01-21-2022 [facility] Work Phone: Start: 01-18-2022 Referral to vascular surgeon [facility] Work Phone: Start: 01-18-2022 Referral to infectio us diseases physician [facility] Work Phone: Start: 01-18-2022 Hospital admission [facility] Work Phone: Start: 01-18-2022 Referral to nurse supervisor [facility] Work Phone: Comprehensive metabo lic 1999 panel - Serum or Plasma [facility] Work Phone: Comprehensive metabo lic 1999 panel - Serum or Plasma [facility] Comprehensive metabo lic 1999 panel - Serum or Plasma [facility] Patient Education [facility] Work Phone: Patient referral [facility] Work Phone: Renal function 1999 panel - Serum or Plasma [facility] Immunizations Immunization Date Immunization Notes Care Provider [facility] 05-25-2023 Influenza, Seasonal, Quadrivalent, Adjuvanted Ifeoma Renuka CCC-A Work Phone: [facility] 05-25-2023 influenza virus vacc ine, unspecified formulation Ifeoma Renuka CCC-A Work Phone: [facility] 05-16-2022 Influenza, Seasonal, Quadrivalent, Adjuvanted Ifeoma Renuka CCC-A Work Phone: [facility] 05-16-2022 SARS-CoV-2, Unspecified Sheryl rah Renuka CCC-A Work Phone: [facility] 07-01-2021 influenza, injectabl e, quadrivalent, contains preservative Ifeoma Renuka CCC-A Work Phone: [facility] 06-27-2021 Pfizer Purple Cap SARS-CoV-2 Vaccination Ifeoma Renuka CCC-A Work Phone: [facility] 06-07-2021 Influenza, High-dose Seasonal, Quadrivalent, Preservative Free Ifeoma Renuka CCC-A Work Phone: [facility] 06-03-2021 tuberculin skin test ; purified protein derivative solution, intradermal Ifeoma Renuka CCC-A Work Phone: [facility] 05-27-2021 tuberculin skin test ; purified protein derivative solution, intradermal Ifeoma Renuka [facility] Work Phone: [facility] 10-04-2020 Pfizer-BioNTech COVI D-19 Vacc 30 MCG/0.3ML Intramuscular Suspension Fan Elliott Work Phone: [facility] 09-13-2020 Pfizer-BioNTech COVI D-19 Vacc 30 MCG/0.3ML Intramuscular Suspension Fan Elliott Work Phone: [facility] 05-17-2020 Seasonal trivalent influenza vaccine, adjuvanted, preservative free Fan Elliott Work Phone: [place] [address] DO Work Phone: 05-17-2020 Seasonal, quadrivale nt, recombinant, injectable influenza [facility], [facility] 06-13-2019 influenza, high dose seasonal, preservative-free Fan Elliott Work Phone: [place] [address] DO Work Phone: 06-07-2019 influenza, injectabl e, madin adrian canine kidney, preservative free Fan Elliott Work Phone: [place] [address] DO Work Phone: 06-01-2018 influenza, injectabl e, quadrivalent, contains preservative Fan Elliott Work Phone: [place] [address] DO Work Phone: 06-01-2018 influenza, injectabl e, quadrivalent, preservative free [facility] Work Phone: [facility] 05-22-2018 zoster vaccine recombinant Fan Elliott Work Phone: [facility] 02-15-2018 zoster vaccine recombinant Fan Elliott Work Phone: [facility] 01-20-2018 tetanus toxoid, redu sandra diphtheria toxoid, and acellular pertussis vaccine, adsorbed Fan Elliott Work Phone: [facility] 09-07-2017 tetanus toxoid, redu sandra diphtheria toxoid, and acellular pertussis vaccine, adsorbed DO Fan Elliott Work Phone: [facility] 06-08-2017 seasonal influenza, intradermal, preservative free Ifeoma Dupontill [facility] Work Phone: [facility] 06-05-2017 influenza, high dose seasonal, preservative-free Fan Elliott Work Phone: [place] [address] DO Work Phone: 05-30-2017 influenza virus vacc ine, unspecified formulation Fan Elliott Work Phone: [place] [address] DO Work Phone: 03-17-2017 pneumococcal conjuga te vaccine, 13 valent Fan Elliott Work Phone: [facility] 06-19-2016 influenza, high dose seasonal, preservative-free Fan Elliott Work Phone: [place] [address] DO Work Phone: 06-02-2016 influenza, injectabl e, quadrivalent, contains preservative Fan Elliott Work Phone: [place] [address] DO Work Phone: 06-02-2016 influenza, injectabl e, quadrivalent, preservative free Ifeoma Renuka [facility] Work Phone: [facility] 05-23-2016 pneumococcal conjuga te vaccine, 13 valent Fan Elliott Work Phone: [place] [address] DO Work Phone: 05-01-2016 influenza virus vacc ine, unspecified formulation Fan Elliott Work Phone: [facility] 250 DO Work Phone: 06-22-2015 influenza virus vacc ine, unspecified formulation Fan Elliott Work Phone: [facility] 250 DO Work Phone: 06-22-2015 influenza, high dose seasonal, preservative-free Fan Elliott Work Phone: [facility] 250 DO Work Phone: 05-31-2014 influenza virus vacc ine, split virus (incl. purified surface antigen) [facility] Work Phone: [facility] 05-31-2014 influenza virus vacc ine, unspecified formulation Fan Elliott Work Phone: [place] [address] DO Work Phone: 10-17-2013 tuberculin skin test ; purified protein derivative solution, intradermal [facility] Work Phone: [facility] 10-07-2013 tuberculin skin test ; purified protein derivative solution, intradermal [facility] Work Phone: [facility] 05-03-2013 influenza virus vacc ine, unspecified formulation Fan Elliott Work Phone: [place] [address] DO Work Phone: 08-31-2011 zoster vaccine, live [facility] Work Phone: [facility] 07-01-2011 influenza virus vacc ine, unspecified formulation Fan Elliott Work Phone: [facility] 250 DO Work Phone: 06-11-2011 zoster vaccine, live Fan Elliott Work Phone: [facility] 250 DO Work Phone: 09-20-2009 novel influenza-H1N1 -09, preservative-free, injectable Fan Elliott Work Phone: [facility] 250 DO Work Phone: 08-31-2009 pneumococcal polysaccharide vaccine, 23 valent [facility] Work Phone: [facility] 08-31-2008 pneumococcal polysaccharide vaccine, 23 valent Fan Elliott Work Phone: [facility] 250 DO Work Phone: 06-07-2008 seasonal influenza, intradermal, preservative free [facility] Work Phone: [facility] 06-29-2000 pneumococcal polysaccharide vaccine, 23 valent I[facility] Work Phone: [facility] influenza virus vacc ine, unspecified formulation Fan Elliott Work Phone: [facility] 250 DO Work Phone: Comment on above: 2011 2009 2008 Payers Date Payer Category Payer Self-pay [id number] 2021 Medicaid [id number] 2021 Medicaid [id number] 2000 Medicare [id number] [id number] 2000 Medicare [id number] 2.1 [id number] 1935 Unknown [id number] 2.16.8 40.1.153094.3.579.2.355 1935 Unknown [id number] 2.16.840.1.291456.3.579.2.356 1935 Unknown [id number] 2.16.840.1.704870.3.579.2.356 1935 Unknown [id number] 2.16.840.1.544489.3.579.2.1244 1935 Unknown [id number] 2.16.84 0.1.802352.3.579.2.1259 1935 Unknown [id number] 2.16.84 0.1.695144.3.579.2.125 1935 Unknown [id number] 2.16.84 0.1.596120.3.579.2.1259 1935 Unknown [id number] 2.16.84 0.1.503428.3.579.2.125 1935 Unknown [id number] 2.16.84 0.1.219160.3.579.2.125 1935 Unknown [id number] 2.16.84 0.1.655994.3.579.2.1258 1935 Unknown [id number] 2.16.84 0.1.466893.3.579.2.1258 1935 Unknown [id number] 2.16.84 0.1.396539.3.579.2.1258 1935 Unknown [id number] 2.16.84 0.1.516609.3.579.2.1258 1935 Unknown [id number] 2.16.84 0.1.563521.3.579.2.1258 1935 Unknown [id number] 2.16.84 0.1.845200.3.579.2.1258 1935 Unknown [id number] 2.16.840.1.529505.3.579.2.128 1935 Unknown [id number] 2.16.840.1.405551.3.579.2.128 1935 Unknown [id number] 2.16.840.1.861133.3.579.2.128 1935 Unknown [id number] 2.16.840.1.244401.3.579.2.128 1935 Unknown [id number] 2.16.840.1.188051.3.579.2.128 1935 Unknown [id number] 2.16.840.1.486522.3.579.2.1286 1935 Unknown [id number] 2.16.840.1.065707.3.579.2.1286 Medicare [id number] Unknown Unknown [facility] [id number] Unknown [id number] 2.16.8 40.1.610905.3.579.2.531 Unknown [id number] 2.16.8 40.1.769311.3.579.2.531 Social History Date Type Detail Facility Start: 05-12-2023 End: 10-23-2023 Former smoker Former smoker -[facility] 250 DO Work Phone: Start: 05-12-2023 End: 10-23-2023 Sex Assigned At [facility] [employer] Other Start: 03-06-2022 End: 03-07-2024 Tobacco smoking status [facility] Ex-smoker (finding) [facility] Start: 1935 Sex Assigned At Female F [facility] Start: 06-18-2023 End: 06-18-2023 Tobacco smoking status [facility] Never smoked tobacco (finding) [facility] End: 01-01-1994 History of tobacco use Current smoker [facility] End: 01-01-1994 History of tobacco use Cigarette Smoker [facility] Start: 03-07-2024 Tobacco use and exposure Smokeless tobacco non-user [facility] Start: 03-14-2024 End: 08-10-2024 Alcoholic beverage intake Lifetime non-drinker (finding) [facility] Within the last year , have you been afraid of your partner or ex-partner? No [facility] Are you now , , , , never or living with a partner? [facility] How often to you hav e a drink containing alcohol? Never [facility] How many standard drinks containing alcohol do you have on a typical day? Patient does not drink [facility] Do you feel stress - tense, restless, nervous, or anxious, or unable to sleep at night because your mind is troubled all the time - these days [OSQ] Only a little [facility] (I/We) worried whether (my/our) food would run out before (I/we) got money to buy more. Never true [facility] Start: 01-23-2023 Alcohol Comment Caffeine: 1-2 cups of coffee in am. [facility] Start: 02-18-2023 Gender identity Identifies as female gender (finding) [facility] Start: 07-15-2024 Sex Female (finding) [facility] NEGATED: Highlighted rowStart: NINF History of tobacco use Passive smoker [facility] Goals Date Patient Goal Desired Activity /State Functional Status Date Assessment Result Facility 01-21-2022 Functional status Patient at Baseline [facility] Work Phone: Mental Status Date Assessment Result Facility 01-21-2022 Cognitive function Cognitive Sta tus Patient at Baseline [facility] Work Phone: Clinical Notes 12-03-2021 to 08-18-2024 Telephone Encounter - LAMONTE Rose - 08/18/2024 4:41 PM ESTTelephone Encounter - LAMONTE Rose - 08/18/2024 4:41 PM FRANK Benson - 08/10/2024 10:00 AM EST Note Date & Type Note Facility 08-18-2024 Telephone encounter Note Pt has been waiting for Medicaid to approve her hearing aids since March. Medicaid is having difficulty with the prior authorization system. Authorization still has not been approved. Medicaid did say they are waiving need for prior authorization. Ordered hearing aids for pt today. Will need to watch billing to make sure aids get paid. Pt. Will need appointment for hearing aid fitting [facility] Work Phone: 08-18-2024 Miscellaneous Notes Pt has been waiting for Medicaid to approve her hearing aids since March. Medicaid is having difficulty with the prior authorization system. Authorization still has not been approved. Medicaid did say they are waiving need for prior authorization. Ordered hearing aids for pt today. Will need to watch billing to make sure aids get paid. Pt. Will need appointment for hearing aid fitting documented in this encounter [facility] 08-10-2024 History of Present illness Narrative Images from the original note were not included. HISTORY OF PRESENT ILLNESS: EST PT Ana Edwards is an 89 y.o. @ female. 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) HX LUMBAR SURGERY PER DR OWEN X 2 (~10YRS AGO) NO PAIN MANAGEMENT C/O LT LOW BACK REGION- PAIN CAN RADIATE DOWN LEG- USING WALKER TO AMBULATE- USES HEAT WITH GOOD RELIEF- INCREASE PAIN WITH ACTIVITY/WB - OCCASIONALLY WAKES HS- PAIN WITH SITTING ALLERGIES: Allergies Allergen Reactions Pentazocine-Naloxone Hcl Unknown Penicillins Other Reaction(s): hives Pentazocine Other Reaction(s): hives Sulfacetamide Other Reaction(s): Vomiting Wellbutrin [Bupropion] HOME MEDICATIONS: Current Outpatient Medications Medication Instructions albuterol HFA 90 mcg/act inhaler 1 puff, Inhalation, As needed ascorbic acid (VITAMIN C) 1,000 mg, Oral, Daily Bacillus Coagulans-Inulin (Probiotic) 1-250 BILLION-MG capsule 1 capsule, Oral, Daily calcium carbonate (OS-CLYDE) 1,250 mg, Oral, Every 24 hours carvedilol (Coreg) 6.25 MG tablet 1 po in am and 2 po in the evening daily cholecalciferol (VITAMIN D-3) 100 mcg, Oral, Daily cholecalciferol (Vitamin D3) 25 MCG (1000 UT) tablet Oral, Every morning ezetimibe (Zetia) 10 MG tablet TAKE 1 TABLET BY MOUTH DAILY AT THE SAME TIME EVERY DAY furosemide (LASIX) 20 mg, Oral, Daily guaiFENesin (MUCINEX) 600 mg, Oral, Every 12 hours guaiFENesin-codeine (Robitussin-AC) 100-10 MG/5ML syrup 10 mL, Oral, Every 6 hours hydroCHLOROthiazide (HYDRODIURIL) 25 mg, Oral, Daily hydroxychloroquine (PLAQUENIL) 200 mg, Oral, Every 24 hours ibuprofen 200 mg, Oral, 2 times daily levothyroxine (Synthroid, Levoxyl) 75 MCG tablet TAKE 1 TABLET BY MOUTH DAILY AT THE SAME TIME EVERY DAY Magnesium Oxide, Laxative, 500 MG tablet 1 tablet, Oral, Daily meclizine (ANTIVERT) 25 mg, Oral, 3 times daily PRN methylPREDNISolone (Medrol Dospak) 4 MG tablets Follow schedule on package instructions naproxen sodium (ALEVE) 220 mg, Oral, Every 12 hours nystatin (Mycostatin) 007928 UNIT/GM powder 1 application , Topical, Every 12 hours predniSONE (Deltasone) 20 MG tablet Take 2 tablets (40 mg) by mouth Daily for 5 days, THEN 1 tablet (20 mg) Daily for 5 days. Take with food. sertraline (Zoloft) 25 MG tablet traMADol (ULTRAM) 50 mg, Oral, Every 6 hours PRN traZODone (DESYREL) 25 mg, Oral, Nightly Hip Musculoskeletal Exam Gait Antalgic: left Assistive device: walker Inspection Leg length disparity: no discrepancy Left Erythema: none Ecchymosis: none Edema: none Deformity: none Palpation Left Increased warmth: none Tenderness: present Lower lumbar region pain: moderate Lower lumbar region pain comment: SI JOINT Range of Motion Left Left hip range of motion is within functional limits. Active ROM: normal. Passive ROM: normal. Strength Left Left hip strength is normal. Extension: 5/5. Flexion: 5/5. Internal rotation: 5/5. External rotation: 5/5. Adduction: 5/5. Abduction: 5/5. Neurovascular Left Left hip neurovascular exam is normal. Pulses - PT: normal Posterior tibial: 2+ Special Tests Left TERESA test (left): positive Special tests additional comments: Neg SLR for radiculopathy, pt has constant pain radiating in to left leg L5 distribution, worse with standing. General Constitutional: appears stated age Labored breathing: no Psychiatric: normal mood and affect Neurological: alert and oriented x3 Skin: intact Lymphadenopathy: none Vitals: There is no height or weight on file to calculate BMI. 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 No definitive evidence of lumbosacral radiculopathy. Procedures Orders Placed This Encounter Procedures Ambulatory referral to Pain Medicine Standing Status: Future Standing Expiration Date: 02/08/2025 Referral Priority: Routine Referral Type: Consultation Referral Reason: Consult and Treat Referred to Provider: John Walden MD Requested Specialty: Pain Medicine Number of Visits Requested: 1 ASSESSMENT: ICD-10-CM 1. Left hip pain M25.552 2. Trochanteric bursitis of left hip M70.62 3. Lumbar back pain with radiculopathy affecting left lower extremity M54.16 predniSONE (Deltasone) 20 MG tablet Ambulatory referral to Pain Medicine 4. Sacroiliac joint pain M53.3 predniSONE (Deltasone) 20 MG tablet Ambulatory referral to Pain Medicine Assessment & Plan 1. Left hip pain, left low back pain, and lumbar radiculopathy. She has mild tenderness over the greater hip trochanter. However, her pain is persistent in the L5 dermatome into the left leg, worse with prolonged standing, improved with sitting. She also has pain over the left SI joint. She is requesting a repeat injection. However, it is felt she would be better served by pain management for possible left SI joint injection and possible L5 nerve root injection pending their evaluation and treatment plan. She declines the thought of any back surgery at this time. Activity modifications were discussed in the interim, and she is advised to continue using her walker. A referral has been sent to pain management, which she is agreeable with. Questions answered in laymen terms at the bedside. The diagnosis, home exercise plan and any ongoing restrictions/ recommendations reviewed. If unable to be reached in office, I recommend evaluation at nearest Emergency Room if any symptoms worsened or new symptoms develop for requiring urgent evaluation. documented in this encounter [facility] 08-04-2024 Telephone encounter Note Requested Prescriptions Signed Prescriptions Disp Refills traMADol (Ultram) 50 MG tablet 120 tablet 0 Sig: Take 1 tablet (50 mg) by mouth every 6 (six) hours if needed for severe pain Authorizing Provider: KAREN HILL patient. [facility] 08-04-2024 Miscellaneous Notes Requested Prescriptions Signed Prescriptions Disp Refills traMADol (Ultram) 50 MG tablet 120 tablet 0 Sig: Take 1 tablet (50 mg) by mouth every 6 (six) hours if needed for severe pain Authorizing Provider: KAREN HILL patient. documented in this encounter [facility] 07-20-2024 History of Present illness Narrative Associated Order(s): L Inj/Asp: L greater trochanteric bursa Post-Procedure Diagnose(s): Trochanteric bursitis of left hip Images from the original note were not included. HISTORY OF PRESENT ILLNESS: EST PT Ana Edwards is an 89 y.o. @ female. 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[facility]); MOST RECENT VISIT WITH DR ALYCIA YOON LBP/LT HIP - S/P MDP GIVEN 03/14/24; PT DID NOT TAKE UNTIL RECENTLY BECAUSE SHE WAS STILL DOING WELL SINCE BURSA INJ 11/10/23 XRAY L-SPINE CHANGE 11/10/23 XRAY L-SPINE 04/27/23 CHANGE MRI L-SPINE 11/26/23 [facility] LT LE 03/10/24 SAMIRA CORTISONE INJ LT HIP BURSA 11/10/23 MDP 07/10/24 PT ([facility]) HX LUMBAR SURGERY PER DR OWEN X 2 (~10YRS AGO) NO PAIN MANAGEMENT PT STATES PAIN RETURNED ~2WKS AGO- PT DID TAKE THE MDP RECENTLY; HELPED WITH SLEEPING- C/O POSTERIOR HIP/BACK PAIN- LATERAL HIP PAIN WELL- USES WALKER- WOULD POSSIBLY LIKE A REPEAT INJ TODAY- WOULD THINK ABOUT SURGERY IN THE FUTURE ALLERGIES: Allergies Allergen Reactions Pentazocine-Naloxone Hcl Unknown Penicillins Other Reaction(s): hives Pentazocine Other Reaction(s): hives Sulfacetamide Other Reaction(s): Vomiting Wellbutrin [Bupropion] HOME MEDICATIONS: Current Outpatient Medications Medication Instructions albuterol HFA 90 mcg/act inhaler 1 puff, Inhalation, As needed ascorbic acid (VITAMIN C) 1,000 mg, Oral, Daily Bacillus Coagulans-Inulin (Probiotic) 1-250 BILLION-MG capsule 1 capsule, Oral, Daily calcium carbonate (OS-CLYDE) 1,250 mg, Oral, Every 24 hours carvedilol (Coreg) 6.25 MG tablet 1 po in am and 2 po in the evening daily cholecalciferol (VITAMIN D-3) 100 mcg, Oral, Daily cholecalciferol (Vitamin D3) 25 MCG (1000 UT) tablet Oral, Every morning ezetimibe (Zetia) 10 MG tablet TAKE 1 TABLET BY MOUTH DAILY AT THE SAME TIME EVERY DAY furosemide (LASIX) 20 mg, Oral, Daily guaiFENesin (MUCINEX) 600 mg, Oral, Every 12 hours guaiFENesin-codeine (Robitussin-AC) 100-10 MG/5ML syrup 10 mL, Oral, Every 6 hours hydroCHLOROthiazide (HYDRODIURIL) 25 mg, Oral, Daily hydroxychloroquine (PLAQUENIL) 200 mg, Oral, Every 24 hours ibuprofen 200 mg, Oral, 2 times daily levothyroxine (Synthroid, Levoxyl) 75 MCG tablet TAKE 1 TABLET BY MOUTH DAILY AT THE SAME TIME EVERY DAY Magnesium Oxide, Laxative, 500 MG tablet 1 tablet, Oral, Daily meclizine (ANTIVERT) 25 mg, Oral, 3 times daily PRN methylPREDNISolone (Medrol Dospak) 4 MG tablets Follow schedule on package instructions naproxen sodium (ALEVE) 220 mg, Oral, Every 12 hours nystatin (Mycostatin) 542532 UNIT/GM powder 1 application , Topical, Every 12 hours sertraline (Zoloft) 25 MG tablet traZODone (DESYREL) 25 mg, Oral, Nightly Physical Exam No joint warmth or erythema in the left hip joint. Exquisite tenderness noted in the left hip greater trochanteric region upon palpation. No pain reported in the anterior hip. Quad/ ham strength is 5/5 , ankle 5/5 dorsiflexion plantar flexion, neg clonus.reflfex 2+ symmetric and seated SLR was neg for radicullopathy. Pt has minimal sorness with palpation of left lower back and pain radiating to left leg.l Vitals: There is no height or weight on file to calculate BMI. 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 No definitive evidence of lumbosacral radiculopathy. L Inj/Asp: L greater trochanteric bursa on 07/20/2024 2:38 PM Indications: pain Details: 21 G needle, lateral approach Medications: 40 mg methylPREDNISolone Acetate 20 MG/ML Outcome: tolerated well, no immediate complications UTILIZING ASEPTIC TECHNIQUE PT GIVEN INJECTION IN LEFT HIP BURSA NEUROVASC INTACT S/P INJ, TOLERATED WELL Procedure, treatment alternatives, risks and benefits explained, specific risks discussed. Consent was given by the patient. No orders of the defined types were placed in this encounter. ASSESSMENT: ICD-10-CM 1. Low back pain, unspecified back pain laterality, unspecified chronicity, unspecified whether sciatica present M54.50 Assessment & Plan 1. Left hip greater trochanteric bursitis. An injection was recommended, with the associated risks and benefits discussed. She reported significant relief from a previous injection for similar symptoms. 2. L5 radiculopathy in the left leg. 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 She declined a referral to pain management, preferring to reassess after the hip bursa injection. She acknowledged that the two symptoms are distinct, but suggested that the hip bursa issue may be related to changes in gait or activity. Follow-up Return in 3 weeks for follow up. If there is no improvement, a referral to pain management will be considered. Questions answered in laymen terms at the bedside. The diagnosis, home exercise plan and any ongoing restrictions/ recommendations reviewed. If unable to be reached in office, I recommend evaluation at nearest Emergency Room if any symptoms worsened or new symptoms develop for requiring urgent evaluation. documented in this encounter [facility] 07-14-2024 Evaluation note Diagnosis Onset Date Resolution Hyperlipidemia acute July 012023 10:45am Hypertensive chronic kidney disease with stage 1 through stage 4 chronic ki acute Novem 2023 10:45am Hypokalemia acute July 10:45am Hypomagnesemia acute July 012023 10:45am Secondary hyperparathyroidism acute July 10:45am CKD (chronic kidney disease) stage 3, GFR 30-59 ml/min chronic July 14, 2024 10:45am [facility] Work Phone: 1(151) 453-961511-10-2024 Telephone encounter Note* Telephone Encounter - Karen iHll NP - 07/10/2024 12:55 PM EST Rx sent for vitamin d for this [place] patient. [id number] Miscellaneous Notes* Telephone Encounter - Karen Hill NP - 07/10/2024 12:55 PM EST Rx sent for vitamin d for this [place] patient. [id number] Telephone encounter Note* Telephone Encounter - Karen Hill NP - 05/27/2024 2:25 PM EDT Biofreeze is sent for this [facility] patient today dt low back pain. [id number] Miscellaneous Notes* Telephone Encounter - Karen Hill NP - 05/27/2024 2:25 PM EDT Biofreeze is sent for this [facility] patient today dt low back pain. 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 Discussed styles and pt prefers SATYA aids. Pt is visually impaired and was able to handle the Phonak boot turner better than the Signia basic boot turner. She likes black and needs 1M receivers (Dustcloudeo P30-R). Will have Dr. Naidu sign medical clearance for hearing aids and will submit PA in the Medicaid portal. Made HAF appointment for 05-23-2024. documented in this [facility]11-20-2023 Evaluation note* Encounter Date Diagnosis Assessment Notes Treatment Notes Treatment Clinical Notes Jul, Chronic kidney disea se, stage III (moderate) (ICD-10 - N18.30) She has CKD due to longstanding HTN. Her baseline serum creatinine is 1.2 mg/dL. I discussed with her the importance of good HTN control to slow down the progression of CKD. 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 She appears to be euvolemic. Continue current dose of the HCTZ, Lasix and carvedilol. Jul, Secondary hyperparathyroidism (ICD-10 - N25.81) MBD parameters including calcium, phosphorus, PTH and vitamin D are within the goal. Continue oral calcium and vitamin D Jul, Hypokalemia (ICD-10 - E87.6) Jul, Dyslipidemia (ICD-10 - E78.5) Continue ezetimibe. Continue follow with PCP for monitoring of lipid profile and LFTs. [employer] Other 11-28-2022 Evaluation note* Encounter Date Diagnosis Assessment Notes Treatment Notes Treatment Clinical Notes Jul, Chronic kidney disea se, stage III (moderate) (ICD-10 - N18.30) Thanks for referring Mrs. Edwards to our office for an evaluation and management of the CKD. As you know she has a longstanding hypertension and likely has a [facility] Her baseline serum creatinine is 1.2 mg/dL. I have ordered a UA and UPCR to look for hematuria and proteinuria. I discussed with her the importance of good HTN control to slow down the progression of CKD. 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 She appears to be euvolemic. Continue current dose of the HCTZ, Lasix and carvedilol. Jul, Anemia of renal dise ase (ICD-10 - D63.1) Hemoglobin is within the goal. We will check iron studies. Jul, Secondary hyperparathyroidism (ICD-10 - N25.81) Calcium normal limit. We will check PTH and vitamin D. Continue oral calcium and vitamin D. [employer] Other 10-20-2022 Progress note Author Celina Lee [facility] June 19, 2022 3:45pm Note Date/Time June 19, 2022 3 :39pm [facility] [place] [address] Hem/Onc Follow Up Note - OP Signed Patient: Ana Edwards MR#: [id number] : 1935 Acct:[id number] Age/Sex: 87 / F Type: REG RCR Copies to: DO Aristeo Boyd PA-C~ Subjective Date/Time of Service: Date of Service: 06/19/2022 Time of Service: 15:35 Chief Complaint: Patient is here for a 3 month follow up, no concerns voiced. HPI: 06/19/2022: Here for interval 3 month follow up for anemia. She did not have recent laboratories to review today and will get these tests early next week when she sees cardiology for blood work. Clinically, she reports she is doing well; specifically states that she feels the best she has felt in > 6 months. Denies headaches, fever/chills, recent/recurrent infections, fatigue, chest pain, cough, shortness of breath or new pain. Her hemoglobin levels over the summer continued to gradually improve with last hemoglobin level 11.0 in March 2022. 03/20/2022: Here for 2 week followup of workup for anemia--no change in her medical history, see original consult from 2 weeks ago. We reviewed lab workup for Vitamin B12, folate, and iron profile reviewed by NILAM Lee. Serum protein electrophoresis showed no M-spike, slightly low IgG but other immune globulins normal and normal kappa/lambda ratio. We discussed her case and I recommended workup for hemolysis (which was negative) and erythropoietin level in case we would need to give erythropoietin stimulating agents for anemia of chronic kidney disease or anemia related to prior osteomyelitis. Her anemia hasnow improved to 10 range since right fifth toe amputation and completion of antibiotics and prior fatigue improved. For now I recommend observation with f/u CBC and CMP in 3 months. She may return sooner prn. OUTPATIENT CONSULTATION 03/05/2022: Ms. Edwards is a very pleasant 87 year old female referred to our hematology clinicfor mixed etiology anemia following a recent hospitalization in December 2021 at [facility] for osteomyelitis involving the right great toe. 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 As noted above, the patient was recently admitted to [facility] from 01/18/2022 - 01/21/2022 for primary complaints of right distal foot pain; with subsequent diagnosis of right fifth toe osteomyelitis. She was treated withintravenous antibiotics and discharged home on oral antibiotics x 6 weeks; whichjust completed on Wednesday, March 02, 2022. At the time of discharge on 01/21/2022, patient was noted to have a hemoglobin of 8.7 and hematocrit of 24.5 with normalindices. Iron saturation was 23% with elevated ferritin - likely acute phase reactant and falsely elevated due to underlying infection and normal low B12/normal folate. In review of her medical records, she was previously noted to have baseline hemoglobin levels ranging between 12.2?13.6 between the years of 2016?2020. Per our records, it appears her hemoglobin levels were first noted to start dropping in May 2021; which subsequently happens to coincide with worsening renal function and reduction in GFR and increasing baseline creatinine. She specifically denies headaches, dizziness, fatigue, fever/chills, night sweats, lymphadenopathy, unintentional weight loss, bony pain, chest pain, shortness of breath, dyspnea on exertion, abdominal pain, changes in bowel habits, easy bruising/bleeding, melena, hematochezia, bright red blood per rectum, weakness, neuropathy or lower extremity edema. She had previous lumbar spinesurgery (lumbar fusion) and utilizes a walker for ambulation for gait stability.She reportedly had a colonoscopy with Dr. Guillen that she reports as normal a few years back; but then states she was referred again to Dr. Guillen and was toldshe didn't need any further testing; but this is unclear if she was referred at the time she become anemic or if this was before. Either way, the patient is very hesitant to undergo any type of gastroenterology procedure; namely EGD/colonoscopy and would only do this if it was a last resort. We will request records from Dr. Guillen office. She denies any personal history of malignancy, no history of DVT/PE or bleeding disorders that she is aware of. She reports having been told in the remote past that she was anemic, but does not recall if she was ever on any oral iron supplementation or B12 supplementation. 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 She maintains excellent performance status and lives independently, independent with ADL's. ROS Details: All systems reviewed & no additional complaints except as documented Subjective/ROS - Narrative: Constitutional: No fever or chills. Stable weight. Eyes: No visual changes or eye pain. Ear, Nose and throat: No congestion, sore throat, sinusitis or ear pain. Cardiovascular: No palpitations, edema, syncope or claudication. Respiratory: No shortness of breathe. No cough or sputum production. Gastrointestinal: No abdominal pain, hematemesis, melena, nausea, vomiting, diarrhea, or reflux disease. Genitourinary: No dysuria, urgency, or burning with urination. Musculoskeletal: No muscle or joint pain--s/p amputation of left 5th toe for osteomyelitis. No current cervical, thoracic or lumbar pain or immobility. Skin: No rash, pruritus, ulcerations. Neurologic: No headache, vertigo, weakness, numbness or tingling. No syncope described. Endocrine: No polyuria, polydipsia, heat or cold intolerance. No history of thyroid disease. Psychiatric: No hallucinations, new stressors, or change in sleep patterns. Hematologic: No abnormal bleeding or bruising. No lymphadenopathy noted. Immunologic: No history of frequent infections or delayed wound healing. [facility] - Medical History Medical History: Medical History (Last Reviewed 03/22/22 @ 07:54 by Sabina Marc MD) Afib Anal fistula Benign essential hypertension Cardiac dysrhythmia Cholecystectomy planned Chronic fatigue syndrome Chronic kidney disease Chronic pain Depression Diverticulitis of colon Frequent falls Insomnia Neuropathy Prolapse of female pelvic organs Rheumatoid arthritis SVT (supraventricular tachycardia) Unspecified hypothyroidism - Surgical History Surgical History: Surgical History (Last Reviewed 03/22/22 @ 07:54 by Sabina Marc MD) H/O: hysterectomy History of knee replacement bilateral Hx of cholecystectomy Previous back surgery - Family History Family History: Family History (Last Reviewed 03/22/22 @ 07:54 by Sabina Marc MD) Mother Stroke Father HTN (hypertension) - Social History Smoking Status: Former smoker Tobacco Type: cigarettes Substance Use Type: None Home Medications & Allergies Allergies Penicillins Allergy (Verified 06/19/22 15:02) Hives pentazocine Allergy (Verified 06/19/22 15:02) Unknown Reaction bupropion [From Wellbutrin] Adverse Reaction (Verified 06/19/22 15:02) Hallucinating Home Medications ascorbic acid (vitamin C) 500 mg tablet (Vitamin C) 500 mg PO QDAY 09/07/17 [History Confirmed 06/19/22] calcium carbonate 500 mg calcium (1,250 mg) tablet (Calcium 500) 500 mg PO QDAY 09/07/17 [History Confirmed 06/19/22] cholecalciferol (vitamin D3) 25 mcg (1,000 unit) tablet (Vitamin D3) 1,000 unit PO QDAY 09/07/17 [History Confirmed 06/19/22] ezetimibe 10 mg tablet (Zetia) 10 mg PO QHS 09/07/17 [History Confirmed 06/19/22] hydroxychloroquine 200 mg tablet 200 mg PO QDAY 09/07/17 [History Confirmed 06/19/22] lactobacillus combination no.4 3 billion cell capsule (Probiotic) 1 cap PO QDAY 09/07/17 [History Confirmed 06/19/22] levothyroxine 75 mcg tablet 75 mcg PO QDAY 09/07/17 [History Confirmed 06/19/22] cyclobenzaprine 5 mg tablet 5 mg PO HS 05/22/21 [History Confirmed 06/19/22] polyethylene glycol 3350 17 gram/dose oral powder (Miralax) 17 g PO DAILY PRN Constipation 01/18/22 [History Confirmed 06/19/22] doxycycline hyclate 100 mg capsule 100 mg PO BID 40 days #80 caps 01/21/22 [Rx Confirmed 06/19/22] carvedilol 6.25 mg tablet 6.25 mg PO DIRECTED 03/05/22 [History Confirmed 06/19/22] hydrochlorothiazide 25 mg tablet 25 mg PO DAILY 03/05/22 [History Confirmed 06/19/22] magnesium 250 mg tablet 250 mg PO DAILY 03/05/22 [History Confirmed 06/19/22] Objective - Resuscitation Status Resuscitation Status: Full Code - Height/Weight Height/Weight: Height 5 ft 1 in Weight 65.907 kg - Vital Signs Vital Signs: 06/19/22 15:03 Pulse Rate [Left Brachial] 68 Respiratory Rate 20 Blood Pressure [Left Arm] 128/68 02 Sat by Pulse Oximetry 99 - Pain Lower Back Pain Intensity: 3 - chronic back pain Physical Exam Narrative: GENERAL: Alert, pleasant, no acute distress, unaccompanied today. HEENT: Head is normocephalic, atraumatic. No scleral icterus. Oral mucosa is pink and moist. No lesions or exudate. NECK: Supple without adenopathy or thyromegaly. HEART: Regular rate and rhythm. S1 and S2 normal. LUNGS: Lungs clear to auscultation bilaterally. No wheezes or crackles; normal respiratory effort. ABDOMEN: Abdomen soft, nontender, nondistended. No hepatosplenomegaly. Bowel sounds present x4 quadrants. BACK: Limited ROM due to previous spinal fusion and chronic low back pain; No CVA tenderness. EXTREMITIES: Warm and dry. No edema, clubbing or cyanosis; right fifth toe osteomyelitis - s/p right toe amputation in December 2021; completed 6 week antibiotic course on 03/02/2022. NEUROLOGICAL: No focal or sensory deficits. The patient is alert and oriented x3; ambulatory with walker - ECOG Performance Status ECOG Score: 0 Results - Labs Labs: Diagram of Most Recent CBC and CMP 03/07/22 13:28 03/07/22 13:28 Assessment and Plan (1) Anemia Qualifiers: Anemia type: due to chronic kidney disease Chronic kidney disease stage 3 subtype: stage 3a (GFR 45-59) Initial consult with NILAM Lee: 03/06/2022 1.) Normocytic, normochromic anemia - In review of her medical records, she was previously noted to have baseline hemoglobin levels ranging between 12.2?13.6 between the years of 2016?2020. Per our records, it appears her hemoglobin levels were first noted to start gradually declining in May 2021; which subsequently happens to coincide with her worsening renal function. As noted above, the patient was hospitalized from 01/18/2022 -01/21/2022 for right great toe osteomyelitis after presenting with severe right distal toe pain. At the time of discharge on 01/21/2022, patient was noted to have a hemoglobin of 8.7 and hematocrit of 24.5 with normalindices. Iron saturation was 23% with elevated ferritin - likely acute phase reactant and falsely elevated due to underlying infection and normal low B12/normal folate, normal ESR. - At time of admission on 01/18/2022, patient was also found to have acute on chronic CKD, with serum creatinine of 3.35 and GFR of 13. She was also noted to have mild hypercalcemia with calcium level of 10.7. At time of discharge, creatinine had improved to 1.19 with a GFR-43 and calcium level was 8.8. The patient reported that she was taking a handful of Motrin per day for weeks leading up to her admission to deal with her toe/foot pain. She has since discontinued. ROS is negative for headaches, dizziness, fatigue, fever/chills, night sweats, lymphadenopathy, unintentional weight loss, bony pain, chest pain, shortness of breath, dyspnea on exertion, abdominal pain, nausea/vomiting, changes in bowel/bladder function, easy bruising/bleeding, melena, hematochezia, bright redblood per rectum, increasing weakness/increasing neuropathy or lower extremity edema. Differentials for anemia; especially in older adults include; nutritional deficiencies vs kidney disease or anemia of chronic disease/inflammation (patientwith remote history of rheumatoid arthritis on Hydroxychloroquine and recent infection with osteomyelitis) vs myelodysplastic syndrome. Will repeat labs; as last set of labs were done while patient was hospitalized for osteomyelitis > 6 weeks ago. Order: 1.) CBC 2.) CMP 3.) Iron studies + ferritin 4.) B12/Folate 5.) Methylmalonic acid and homocystine 6.) LDH 7.) Haptoglobin 8.) Retic count 9.) EPO level 10.) SPEP/UPEP/serum immunofixation, immunoglobins and [place]/Lambda light chains; given recent decline in renal function and mild hypercalcemia at time ofadmission No obvious source of GI blood loss; patient declines EGD/colonoscopy referral and evaluation; she will think about it. She is up to date with mammography; having last breast mammogram in May 2021; which was benign. CT of the abdomen/pelvis done in October 2021; with no acute/concerning findings. 03/20/2022: Reviewed all labs ordered 03/06/2022--stable to improving stage 3 CKD (possibly related to prior NSAIDs). Anemia improved to 10.2 with no hemolysis, monoclonal gammopathy, or vitamin/element deficiencies on labs. Likely anemia chronic disease related to osteomyelitis which has resolved after amputation/6 weeks antibiotics. No indication for bone marrow biopsy. Repeat CBC and CMP in3 months--if stable to improved anemia at that time, hematology f/u will be as needed. 06/19/2022: Clinically patient is doing very well; she is here for interval 3 month follow up with review of labs (CBC and CMP)- which she has not had drawn since February 2022. We will request repeat laboratories to be done within the next week and I will contact her with follow up phone visit in 2 weeks to discuss labs. Previously her anemia was felt to be related to inflammation/infection, asfull work up did not indicate any significant abnormalities. She feels good in general and has had no issues; maintains robust performance status and states that she feels the best she has felt in over 6 months. o if labs indicate normal or near baseline hemoglobin; follow up with hematologywill be changed to as needed in the future. Patient wishes to minimize her appointments given that she sees multiple specialists and requires transportation arrangements. (2) CKD (chronic kidney disease) stage 3, GFR 30-59 ml/min Qualifiers: Chronic kidney disease stage 3 subtype: stage 3b (GFR 30-44) Qualified Code(s): N18.32 - Chronic kidney disease, stage 3b Gradual decline in renal function; first noted in May 2021; prior to this it appears as though patient had relatively normal renal function. At time of admission to hospital for right great toe osteomyelitis on 01/18/2022?patient was found to have serum creatinine of 3.35 with GFR of 13. The patient reports that prior to her hospitalization she was taking handfuls of Motrin to deal with the pain in her foot; but has since stopped and is taking Aleve only sparingly, as needed. Renal failure also may have been ATN related to her osteomyelitis. I recommended she discuss an alternate med from Motrin (she declines any opioids) with nephrology. At the time of discharge her creatinine improved to 1.19 with GFR of 43 as notedwith laboratories on 01/21/2022, stable GFR 40 on most recent labs - which appears to be accurate representation of patient's baseline. She still has pending appt with nephrology in July 2022. (3) Osteomyelitis of toe of right foot As noted above, patient was hospitalized at [facility] from 01/18/2022 - 01/21/2022 for right fifth toe osteomyelitis. Patient was givenintravenous antibiotics and subsequently discharged home on oral antibiotics X 6weeks. She has continued outpatient follow-up with vascular surgery and podiatry, Dr. Jane. She completed 6-week course of antibiotic therapy on 03/02/2022. Amputation completed (she cannot recall date). No residual signs and symptoms of infection. Overall - resolved. Likely contributed to anemia. - Time with Patient Time Spent with Patient (Follow Up Visit): 25 minutes Coordination of Care & Counseling Time: Greater than 50% of time spent with patient was for coordination of care (as documented) and [id number] counseling of patient and/or family. Dictated By: Celina Lee APRN DD/ [id number] Signed By: <Electronically signed by SHEY Lee> 06/19/22 [address] [facility] Work Phone: [phone]) 448-930208-30-2022 Evaluation note* Encounter Date Diagnosis Assessment Notes Treatment Notes Treatment Clinical Notes Mar, History of total right knee replacement (ICD-10 - Z96.651) [employer] Other 08-10-2022 Evaluation note* Encounter Date Diagnosis Assessment Notes Treatment Notes Treatment Clinical Notes Mar, History of total right knee replacement (ICD-10 - Z96.651) Mar, Other I had a long discussion with the patient regarding her x-ray findings and treatment options. I explained to her that there is some concern on the x-ray for possibly aseptic loosening. I also explained to her that the increasing pain in the knee and the near setting of osteomyelitis in that same leg is also concerning for infection. As a result, I recommended that we get infectious labs including the following: WBC ESR CRP D-dimer Once we get these labs we will take a look at them and if they are normal then I will call the patient and then we will proceed with getting a bone scan. If there is any concern with these labs we will have her come back and we will get a aspiration to be sent off for Synovasure to completely rule out an infection. Patient is in agreement with this plan. [employer] Other 07-23-2022 Progress note Author Sabina Marc [facility] 2022 8:16am Note Date/Time March 20, 2022 2:23 pm [facility] [place] [address] Hem/Onc Follow Up Note - OP Signed Patient: Ana Edwards MR#: [id number] : 1935 Acct:[id number] Age/Sex: 86 / F Type: REG RCR Copies to: Grant Jane,RADHA, MS, CWS Fan Elliott,DO Aristeo Mcgraw PA-C~ Subjective Date/Time of Service: Date of Service: 03/20/2022 Time of Service: 14:22 Chief Complaint: Patient is here today for a 2 week follow up visit for anemia and go over labs HPI: 03/20/2022: Here for 2 week followup of workup for anemia--no change in her medical history, see original consult from 2 weeks ago. We reviewed lab workup for Vitamin B12, folate, and iron profile reviewed by NILAM Lee. Serum protein electrophoresis showed no M-spike, slightly low IgG but other immune globulins normal and normal kappa/lambda ratio. We discussed her case and I recommended workup for hemolysis (which was negative) and erythropoietin level in case we would need to give erythropoietin stimulating agents for anemia of chronic kidney disease or anemia related to prior osteomyelitis. Her anemia hasnow improved to 10 range since right fifth toe amputation and completion of antibiotics and prior fatigue improved. For now I recommend observation with f/u CBC and CMP in 3 months. She may return sooner prn. OUTPATIENT CONSULTATION 03/05/2022: Ms. Edwards is a very pleasant 87 year old female referred to our hematology clinicfor mixed etiology anemia following a recent hospitalization in December 2021 at [facility] for osteomyelitis involving the right great toe. 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 As noted above, the patient was recently admitted to [facility] from 01/18/2022 - 01/21/2022 for primary complaints of right distal foot pain; with subsequent diagnosis of right fifth toe osteomyelitis. She was treated withintravenous antibiotics and discharged home on oral antibiotics x 6 weeks; whichjust completed on Wednesday, March 02, 2022. At the time of discharge on 01/21/2022, patient was noted to have a hemoglobin of 8.7 and hematocrit of 24.5 with normalindices. Iron saturation was 23% with elevated ferritin - likely acute phase reactant and falsely elevated due to underlying infection and normal low B12/normal folate. In review of her medical records, she was previously noted to have baseline hemoglobin levels ranging between 12.2?13.6 between the years of 2016?2020. Per our records, it appears her hemoglobin levels were first noted to start dropping in May 2021; which subsequently happens to coincide with worsening renal function and reduction in GFR and increasing baseline creatinine. She specifically denies headaches, dizziness, fatigue, fever/chills, night sweats, lymphadenopathy, unintentional weight loss, bony pain, chest pain, shortness of breath, dyspnea on exertion, abdominal pain, changes in bowel habits, easy bruising/bleeding, melena, hematochezia, bright red blood per rectum, weakness, neuropathy or lower extremity edema. She had previous lumbar spine surgery (lumbar fusion) and utilizes a walker for ambulation for gait stability. She reportedly had a colonoscopy with Dr. Guillen that she reports as normal a few years back; but then states she was referred again to Dr. Guillen and was told she didn't need any further testing; but this is unclear if she wasreferred at the time she become anemic or if this was before. Either way, the patient is very hesitant to undergo any type of gastroenterology procedure; namely EGD/colonoscopy and would only do this if it was a last resort. We willrequest records from Dr. Guillen office. She denies any personal history of malignancy, no history of DVT/PE or bleeding disorders that she is aware of. She reports having been told in the remote past that she was anemic, but does not recall if she was ever on any oral iron supplementation or B12 supplementation. 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 She maintains excellent performance status and lives independently, independent with ADL's. ROS Details: All systems reviewed & no additional complaints except as documented Subjective/ROS - Narrative: Constitutional: No fever or chills. Stable weight. Eyes: No visual changes or eye pain. Ear, Nose and throat: No congestion, sore throat, sinusitis or ear pain. Cardiovascular: No palpitations, edema, syncope or claudication. Respiratory: No shortness of breathe. No cough or sputum production. Gastrointestinal: No abdominal pain, hematemesis, melena, nausea, vomiting, diarrhea, or reflux disease. Genitourinary: No dysuria, urgency, or burning with urination. Musculoskeletal: No muscle or joint pain--s/p amputation of left 5th toe for osteomyelitis. No current cervical, thoracic or lumbar pain or immobility. Skin: No rash, pruritus, ulcerations. Neurologic: No headache, vertigo, weakness, numbness or tingling. No syncope described. Endocrine: No polyuria, polydipsia, heat or cold intolerance. No history of thyroid disease. Psychiatric: No hallucinations, new stressors, or change in sleep patterns. Hematologic: No abnormal bleeding or bruising. No lymphadenopathy noted. Immunologic: No history of frequent infections or delayed wound healing. PMFSH - History Source: Old Records Reviewed - Medical History Medical History: Medical History (Last Reviewed 03/22/22 @ 07:54 by Sabina Marc MD) Afib Anal fistula Benign essential hypertension Cardiac dysrhythmia Cholecystectomy planned Chronic fatigue syndrome Chronic kidney disease Chronic pain Depression Diverticulitis of colon Frequent falls Insomnia Neuropathy Prolapse of female pelvic organs Rheumatoid arthritis SVT (supraventricular tachycardia) Unspecified hypothyroidism - Surgical History Surgical History: Surgical History (Last Reviewed 03/22/22 @ 07:54 by Sabina Marc MD) H/O: hysterectomy History of knee replacement bilateral Hx of cholecystectomy Previous back surgery - Family History Family History: Family History (Last Reviewed 03/22/22 @ 07:54 by Sabina Marc MD) Mother Stroke Father HTN (hypertension) - Social History Smoking Status: Former smoker Tobacco Type: cigarettes Substance Use Type: None Home Medications & Allergies Allergies Penicillins Allergy (Verified 03/20/22 14:16) Hives pentazocine Allergy (Verified 03/20/22 14:16) Unknown Reaction bupropion [From Wellbutrin] Adverse Reaction (Verified 03/20/22 14:16) Hallucinating Home Medications ascorbic acid (vitamin C) 500 mg tablet (Vitamin C) 500 mg PO QDAY 09/07/17 [History Confirmed 03/20/22] calcium carbonate 500 mg calcium (1,250 mg) tablet (Calcium 500) 500 mg PO QDAY 09/07/17 [History Confirmed 03/20/22] cholecalciferol (vitamin D3) 25 mcg (1,000 unit) tablet (Vitamin D3) 1,000 unit PO QDAY 09/07/17 [History Confirmed 03/20/22] ezetimibe 10 mg tablet (Zetia) 10 mg PO QHS 09/07/17 [History Confirmed 03/20/22] hydroxychloroquine 200 mg tablet 200 mg PO QDAY 09/07/17 [History Confirmed 03/20/22] lactobacillus combination no.4 3 billion cell capsule (Probiotic) 1 cap PO QDAY 09/07/17 [History Confirmed 03/20/22] levothyroxine 75 mcg tablet 75 mcg PO QDAY 09/07/17 [History Confirmed 03/20/22] omega 5-qvz-mrm-fish oil 1,000 mg (120 mg-180 mg) capsule (Fish Oil) 1,000 mg POQDAY 09/07/17 [History Confirmed 03/20/22] cyclobenzaprine 5 mg tablet 5 mg PO HS 05/22/21 [History Confirmed 03/20/22] polyethylene glycol 3350 17 gram/dose oral powder (Miralax) 17 g PO DAILY PRN Constipation 01/18/22 [History Confirmed 03/20/22] doxycycline hyclate 100 mg capsule 100 mg PO BID 40 days #80 caps 01/21/22 [Rx Confirmed 03/20/22] carvedilol 6.25 mg tablet 6.25 mg PO DIRECTED 03/05/22 [History Confirmed 03/20/22] hydrochlorothiazide 25 mg tablet 25 mg PO DAILY 03/05/22 [History Confirmed 03/20/22] hydrocodone 5 mg-acetaminophen 325 mg tablet 1 tab PO Q6H PRN Pain 03/05/22 [History Confirmed 03/20/22] magnesium 250 mg tablet 250 mg PO DAILY 03/05/22 [History Confirmed 03/20/22] Objective - Height/Weight Height/Weight: Height 5 ft 1 in Weight 68.946 kg - Vital Signs Vital Signs: 03/20/22 14:16 Temperature 97.8 F Pulse Rate [Left Brachial] 81 Respiratory Rate 16 Blood Pressure [Left Arm] 133/84 02 Sat by Pulse Oximetry 97 Oxygen Delivery Method Room Air - Pain Lower Back Pain Intensity: 3 - chronic back pain Physical Exam Narrative: GENERAL: Alert, pleasant, no acute distress, unaccompanied today. HEENT: Head is normocephalic, atraumatic. No scleral icterus. Oral mucosa is pink and moist. No lesions or exudate. NECK: Supple without adenopathy or thyromegaly. HEART: Regular rate and rhythm. S1 and S2 normal. LUNGS: Lungs clear to auscultation bilaterally. No wheezes or crackles; normal respiratory effort. ABDOMEN: Abdomen soft, nontender, nondistended. No hepatosplenomegaly. Bowel sounds present x4 quadrants. BACK: Limited ROM due to previous spinal fusion and chronic low back pain; No CVA tenderness. EXTREMITIES: Warm and dry. No edema, clubbing or cyanosis; right fifth toe osteomyelitis - s/p amputation; completed 6 week antibiotic course on 03/02/2022. NEUROLOGICAL: No focal or sensory deficits. The patient is alert and oriented x3; ambulatory with walker - ECOG Performance Status ECOG Score: 2 Results - Labs Labs: Diagram of Most Recent CBC and CMP 03/07/22 13:28 03/07/22 13:28 03/07/22: WBC 5100, ANC 2900, retic 0.047 x 10^6, 1.5% (normal), methylmalonic acid 295, homocysteine 20.6, SPEP no M-spike BUN 17, Creat 1.27 (nonAA GFR 40), Epo level 13.4, iron saturation 25%, IgG 575, IgA 112, IgM 99, Free kappa 24.2, Free lambda 16.2, kappa/lambda 1.49 - Impressions MR/MR foot RT wo con IMPRESSION: Findings consistent with osteomyelitis and overlying cellulitis involving the fifth digit predominantly at the proximal interphalangeal joint spurring the metatarsophalangeal junction. No evidence of fluid collection to suggest the presence of abscess. Impression dictated by: John Chadwick M.D.01/18/2022 2:58 PM Assessment and Plan (1) Anemia Qualifiers: Anemia type: due to chronic kidney disease Chronic kidney disease stage 3 subtype: stage 3a (GFR 45-59) Initial consult with NILAM Lee: 03/06/2022 1.) Normocytic, normochromic anemia - In review of her medical records, she was previously noted to have baseline hemoglobin levels ranging between 12.2?13.6 between the years of 2016?2020. Per our records, it appears her hemoglobin levels were first noted to start gradually declining in May 2021; which subsequently happens to coincide with her worsening renal function. As noted above, the patient was hospitalized from 01/18/2022 -01/21/2022 for right great toe osteomyelitis after presenting with severe right distal toe pain. At the time of discharge on 01/21/2022, patient was noted to have a hemoglobin of 8.7 and hematocrit of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 Supraventricular tachycardia with no recurrences, on beta-cheryl therapy. Along with magnesium oxide. * 2. Premature atrial contractions, suppressed by beta-cheryl therapy * and remains asymptomatic. Magnesium oxide help suppress PACs as well * 3. Hypertension, under control on beta cheryl, hydrochlorothiazide. * 4. Obesity. Encouraged more control of the weight by cutting back * calorie intake. * 5. Hyperlipidemia, under control, on Zetia. * 6. Hypothyroidism, under control, on replacement therapy. * 7. Rheumatoid arthritis, under control on Plaquenil. Annual * 8. At risk for falls, education provided * followup will be scheduled in 1 year * Sam Machado MD, FACC * ANA EDWARDS is being seen for an annual follow-up of. * Patient is in the office for follow-up for the problems noted below. She reports no palpitations suggestive of tachycardia. She has had frequent falls due to balance issues even though she uses a walker. Education prevent future falls discussed with the patient. She had recent blood work through her PCP which I reviewed with her and there was no concern noted. Her physical examination today was only remarkable for obesity. * ASSESSMENT AND PLAN: * 1. Supraventricular tachycardia with no recurrences, on beta-cheryl therapy. Along with magnesium oxide. * 2. Premature atrial contractions, suppressed by beta-cheryl therapy * and remains asymptomatic. Magnesium oxide help suppress PACs as well * 3. Hypertension, under control on beta cheryl, hydrochlorothiazide. * 4. Obesity. Encouraged more control of the weight by cutting back * calorie intake. * 5. Hyperlipidemia, under control, on Zetia. * 6. Hypothyroidism, under control, on replacement therapy. * 7. Rheumatoid arthritis, under control on Plaquenil. Annual * 8. At risk for falls, education provided * followup will be scheduled in 1 year * Sam Machado MD, FACC * ANA EDWARDS is being seen for an annual follow-up of. * Patient is in the office for follow-up for the problems noted below. Since her last visit she has not had any episode of tachyarrhythmias. She denies any palpitations. Her blood pressure is under control. Her lipids have been followed and have been under control as well. Patient lost 20 pounds since her last visit on purpose. Patient has anemia and has been evaluated by hematology but did not have any endoscopies. She never received blood transfusion hemoglobin was down to 8.7 back in December 2021.It is up to just under 11 at this time. She is not anticoagulated. Denies orthopnea PND lower extremity edema. Has no symptoms of fatigue. * ASSESSMENT AND PLAN: * 1. Supraventricular tachycardia with no recurrences, on beta-cheryl therapy. Along with magnesium oxide. * 2. Premature atrial contractions, suppressed by beta-cheryl therapy * and remains asymptomatic. Magnesium oxide help suppress PACs as well * 3. Hypertension, under control on beta cheryl, hydrochlorothiazide. * 4. Slight overweight. The patient lost 20 pounds on purpose in the last several month. She is very close to target BMI. * 5. Hyperlipidemia, under control, on Zetia. * 6. Hypothyroidism, under control, on replacement therapy. * 7. Rheumatoid arthritis, under control on Plaquenil. * 8. At risk for falls, education provided * 9. Anemia of unknown cause, she follows with hematology. She has no active bleeding * followup will be scheduled in 1 year * Sam Machado MD, [facility] Chief Complaint and Reason for Visit Chief Complaint rt foot pain/redness Anemia & CKD Reason for Visit Acute kidney injury Acute kidney injury superimposed on CKD Acute osteomyelitis of left ankle or foot Falls Generalized weakness Osteomyelitis Osteomyelitis of toe of right foot Peripheral arterial disease Toe pain, right Anemia CKD (chronic kidney disease) stage 3, GFR 30-59 ml/min Osteomyelitis of toe of right foot Chief Complaint Anemia & CKD Z96.651 Z96.651 Reason for Visit Anemia CKD (chronic kidney disease) stage 3, GFR 30-59 ml/min Osteomyelitis of toe of right foot Chief Complaint Anemia & CKD Z96.651 Z96.651 Z96.651 Reason for Visit Anemia CKD (chronic kidney disease) stage 3, GFR 30-59 ml/min Osteomyelitis of toe of right foot Chief Complaint Z96.651 Z96.651 Z96.651 Anemia & CKD Reason for Visit Anemia CKD (chronic kidney disease) stage 3, GFR 30-59 ml/min Osteomyelitis of toe of right foot Chief Complaint Z96.651 Z96.651 Z96.651 E03.9 R06.02 I47.1 D64.9 Anemia & CKD Reason for Visit Anemia CKD (chronic kidney disease) stage 3, GFR 30-59 ml/min Osteomyelitis of toe of right foot Chief Complaint Z96.651 E03.9 R06.02 I47.1 D64.9 Anemia & CKD i10 n18.32 Reason for Visit Anemia CKD (chronic kidney disease) stage 3, GFR 30-59 ml/min Osteomyelitis of toe of right foot Chief Complaint ABD PAIN Chief Complaint ABD PAIN E87.6 I10 Chief Complaint ABD PAIN E87.6 I10 i10 e03.9 n18.31 Chief Complaint dizziness Chief Complaint dizziness I10 n18.30 i12.9 d63.1 n25.81 Chief Complaint n18.30 n25.81 e87.6 Chief Complaint Admit Date n18.30 n25.81 e87.6 July 05, 2024 8 :15am RENAL 1 year follow up July 14 10:45am N18.30 N25.81 E87.6 July 14, 2024 10:51am Reason for Visit Admit Date Hyperlipidemia July 14, 2024 10:45am Hypertensive chronic kidney disease with stage 1 through stage 4 chronic ki July 14, 2024 10:45am Hypokalemia July 14, 2024 10:45am Hypomagnesemia July 14, 2024 10:45am Secondary hyperparathyroidism July 012023 10:45am CKD (chronic kidney disease) stage 3, GF R 30-59 ml/min July 14, 2024 10:45am Additional Source Comments INFORMATION SOURCE (unrecogn ized section and content) DATE CREATED AUTHOR 11/08/2018 [facility] Healthcare DATE CREATED AUTHOR AUTHOR'S ORGANIZ ATION 01/19/2022 [facility] dical Specialist DATE CREATED AUTHOR AUTHOR'S ORGANIZ ATION 06/26/2022 [facility] DATE CREATED AUTHOR AUTHOR'S ORGANIZ ATION 06/27/2022 [employer] DATE CREATED AUTHOR AUTHOR'S ORGANIZ ATION 07/08/2023 [facility] DATE CREATED AUTHOR AUTHOR'S ORGANIZ ATION 07/25/2024 [facility] DATE CREATED AUTHOR AUTHOR'S ORGANIZ ATION 08/13/2024 [facility] dical Specialists [facility] DATE CREATED AUTHOR AUTHOR'S ORGANIZ ATION 08/19/2024 [facility] REASON FOR VISIT (unrecogniz ed section and content) Reason Comments Med Refill Reason Comments Pain Care Teams (unrecognized sec tion and content) Team Status: Inactive Member Role Status Dates Fan Elliott DO Primary Care Provider, Attending Prov ider Active Team Status: Inactive Member Role Status Dates Fan Elliott DO Primary Care Provider Active Sam Machado MD Attending Provider Active Team Status: Active Member Role Status Dates Fan Elliott , DO Primary Care Provider Active Celina Lee APRN Attending Provider Active Aristeo Mcgraw PA-C Referring Provider Active Team Status: Inactive Member Role Status Dates Fan Elliott , DO Primary Care Provider Active Cece Anguiano II, MD Attending Provider Active Team Status: Active Member Role Status Dates Fan Elliott , DO Primary Care Provider Active Team Status: Inactive Member Role Status Dates Fan Elliott , DO Primary Care Provider Active Troy Mcgraw PA-C Emergency Provider Active Rico Hills MD Admit Provider Active Peterson Mejia MD Other Provider Active Grant Jane DPM Other Provider Active Peewee Mondragon MD Other Provider Active Yoav Hsu MD Attending Provider Active Team Status: Inactive Member Role Status Dates Fan Elliott , DO Primary Care Provider Active Ny Whitaker PA-C Emergency Provider Active Team Status: Inactive Member Role Status Dates Fan Elliott , DO Primary Care Provider Active Peewee Jackson , Emergency Provider Active Team Status: Inactive Member Role Status Dates Fan Elliott , Primary Care Provider, Attending Prov ider Active Sakshi Ojeda MD Referring Provider Active Team Status: Active Member Role Status Dates GIL Bahena Primary Care Provider Active Team Status: Inactive Member Role Status Dates GIL Bahena Primary Care Provider Active Start: July 05, 2024 End: July 05, 2024 Sakshi Ojeda MD Attending Provider Active Start : July 05, 2024 End: July 05, 2024 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 Relationship Specialty Start Date End Date Fan Elliott DO [address] [place] [address] PCP - ACO Reach 01/22/23 Fan Naidu DO [address] [place] [address] Otolaryngology 03/07/24 Team Status: Inactive Member Role Status Dates Sakshi Ojeda MD Attending Provider Active Start : July 14, 2024 End: July 14, 2024 GIL Bahena Primary Care Provider Active Start: July 14, 2024 End: July 14, 2024 Team Status: Inactive Member Role Status Dates GIL Bahena Primary Care Provider Active Start: July 14, 2024 End: July 14, 2024 Sakshi Ojeda MD Attending Provider Active Start : July 14, 2024 End: July 14, 2024 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 Relationship Specialty Start Date End Date Fan Elliott, [address] [facility] [address] [place] [address] PCP - ACO Reach 01/22/23 Fan Naidu, [address] [place] [address] Otolaryngology 03/07/24 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 Relationship Specialty Start Date End Date Fan Elliott, [address] [facility] [address] [place] [address] PCP - ACO Reach 01/22/23 Fan Naidu, [address] [place] [address] Otolaryngology 03/07/24 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 Relationship Specialty Start Date End Date Fan Elliott, [address] [facility] [address] [place] [address] PCP - ACO Reach 01/22/23 Fan Naidu, [address] [place] [address] Otolaryngology 03/07/24 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 Relationship Specialty Start Date End Date Fan Elliott, [address] [place] [address] PCP - ACO Reach 01/22/23 Fan Naidu, DO [address] [place] [address] Otolaryngology 03/07/24 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 Relationship Specialty Start Date End Date Fan Elliott, DO [address] [place] [address] PCP - ACO Reach 01/22/23 Fan Naidu, DO [address] [place] [address] Otolaryngology 03/07/24 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 Relationship Specialty Start Date End Date Fan Elliott, DO [address] [place] [address] PCP - General Family Medicine 01/20/23 Fan Elliott, DO [address] [place] [address] PCP - ACO Reach 01/22/23 Fan Naidu, DO [address] [place] [address] Otolaryngology 03/07/24 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 Relationship Specialty Start Date End Date Fan Elliott, DO [address] [place] [address] PCP - General Family Medicine 01/20/23 Fan Elliott, DO [address] [place] [address] PCP - ACO Reach 01/22/23 Fan Naidu DO [address] [place] [address] Otolaryngology 03/07/24 Goals (unrecognized section and content) Goals may be documented in a n alternate section FOR RECORDS PERTAINING TO PATIENTS WHO ARE OR HAVE BEEN ENROLLED IN A CHEMICAL DEPENDENCY/SUBSTANCEABUSE PROGRAM, SOME INFORMATION MAY BE OMITTED. This clinical summary was aggregated from multiple sources. Caution should be exercised in using it in the provision of clinical care. This summary normalizes information from multiple sources, and as a consequence, information in this document may materially change the coding, format and clinical context of patient data. In addition, data may be omitted in some cases. CLINICAL DECISIONS SHOULD BE BASED ON THE PRIMARY CLINICAL RECORDS. [employer] provides no warranty or guarantee of the accuracy or completeness of information in this document.
[2024-08-21] MEDS: PROMETHAZINE HCL 12.5 MG in 0.9 % SODIUM CHLORIDE 50 ML 202 MG IV (05:19)
[2024-08-21 05:24] LABS: Basophils Percent Auto 0.2 % (0.2-2.0); Eosinophils Percent Auto 0.4 % (0.9-7.0); Hematocrit 46.1 % (36.0-48.0); Hemoglobin 15.8 g/dL (12.0-16.0); Immature Granulocytes Abs Auto 0.04 10^3/uL (0.00-0.03); Immature Granulocytes Pct Auto 0.8 % (0.0-0.5); Lymphocytes Absolute Auto 0.5 10^3/uL (1.2-3.8); Lymphocytes Percent Auto 11.3 % (20.5-60.0); Mean Corpuscular HGB Conc 34.3 g/dL (29.9-35.2); Mean Corpuscular Hemoglobin 31.2 pg (26.7-34.0); Mean Corpuscular Volume 90.9 fL (81.0-99.0); Mean Platelet Volume 10.1 fL (9.5-13.5); Monocytes Absolute Auto 0.1 10^3/uL (0.3-0.8); Monocytes Percent Auto 2.5 % (1.7-12.0); Neutrophils Absolute Auto 4.1 10^3/uL (1.4-6.5); Neutrophils Percent Auto 84.8 % (43.0-75.0); Platelet Count 233 10^3/uL (150-450); Red Blood Count 5.07 10^6/uL (4.20-5.40); Red Cell Distribution Width 12.4 % (11.0-15.0); White Blood Count 4.8 10^3/uL (4.0-11.0)
[2024-08-21 05:49] LABS: Alanine Aminotransferase 29 U/L (14-59); Albumin Globulin Ratio 1.2; Albumin Level 3.1 g/dL (3.4-5.0); Alkaline Phosphatase 56 U/L (46-116); Anion Gap 15.2; Aspartate Amino Transferase 20 U/L (15-37); BUN Creatinine Ratio 25.7; Bilirubin Total 0.6 mg/dL (0.2-1.0); Calcium 8.9 mg/dL (8.5-10.1); Carbon Dioxide 25.7 mmol/L (21.0-32.0); Chloride 102 mmol/L (98-107); Estimated GFR (African America 55 (>=60 mL/min/1.73m^2); Estimated GFR (Non-African Ame 45 (>=60 mL/min/1.73m^2); Globulin 2.5 g/dL; Glucose 98 mg/dL (74-106); Potassium 3.9 mmol/L (3.5-5.1); Sodium 139 mmol/L (136-145); Total Protein 5.6 g/dL (6.4-8.2); Troponin I High Sensitivity 29.7 pg/mL (4.0-51.3)
[2024-08-21 05:50] LABS: Lactate/Lactic Acid 3.5 mmol/L (0.4-2.0)
[2024-08-21] MEDS: HYDROMORPHONE HCL 0.5 MG/0.5 ML SYRINGE IV (06:22)
--- NOTE | 2024-08-21 06:24 | ED.ABDPAIN1 ---
HPI - Abdominal Pain General Chief Complaint: Abdominal Pain Stated Complaint: abd pain Time Seen by Provider: 08/21/24 04:47 Source: patient Mode of arrival: ambulance Limitations: no limitations History of Present Illness HPI narrative: 89-year-old female to the emergency department chief complaint of abdominal pain. Patient reports that sometime around 2 AM she was woken up out of her sleep with severe abdominal pain. It is diffuse in nature. She rates it a 10 out of 10. It is worse with movement. It is associated with nausea and vomiting. She denies any fever, sweats, chills. She was otherwise at her baseline health. No history of any abdominal surgeries. No falls or injuries. She reports last bowel movement 3 days ago. No dysuria, urgency, frequency, hematuria. Past medical history: Chronic systolic heart failure, hyperlipidemia, osteoporosis Past surgical history: Denies Medications: Lasix, Coreg, hydrochlorothiazide, levothyroxine Related Data Home Medications ?Medication ?Instructions ?Recorded ?Confirmed ascorbic acid (vitamin C) 1,000 mg 1,000 mg PO DAILY 08/17/24 08/21/24 tablet,extended release (C Complex) carvedilol 12.5 mg tablet (Coreg) 12.5 mg PO DAILY 08/17/24 08/21/24 hydrochlorothiazide 25 mg tablet 25 mg PO DAILY 08/17/24 08/21/24 hydroxychloroquine 200 mg tablet 200 mg PO DAILY 08/17/24 08/21/24 levothyroxine 75 mcg tablet 75 mcg PO DAILY 08/17/24 08/21/24 (Euthyrox) Saccharomyces boulardii 250 mg 250 mg PO DAILY 08/21/24 08/21/24 capsule calcium 500 mg tablet 500 mg PO DAILY 08/21/24 08/21/24 calcium carbonate 1,250 mg PO DAILY 08/21/24 08/21/24 carvedilol 6.25 mg tablet 6.25 mg PO DAILY 08/21/24 08/21/24 cholecalciferol (vitamin D3) 25 1,000 unit PO DAILY 08/21/24 08/21/24 mcg (1,000 unit) tablet furosemide 20 mg tablet 20 mg PO DAILY 08/21/24 08/21/24 magnesium oxide 500 mg PO DAILY 08/21/24 08/21/24 potassium chloride 20 mEq 20 meq PO DAILY 08/21/24 08/21/24 tablet,extended release(part/cryst) trazodone 50 mg tablet 25 mg PO BEDTIME 08/21/24 08/21/24 Allergies Allergy/AdvReac Type Severity Reaction Status Date / Time bupropion (From Wellbutrin) Allergy Hallucinati Verified 08/17/24 09:08 ng Penicillins Allergy Hives Verified 08/17/24 09:08 pentazocine (From Talwin) Allergy Unknown Verified 08/17/24 09:08 Review of Systems ROS Status of ROS 10 or more systems reviewed and unremarkable except as noted in history and below [facility] Medical History (Updated 08/21/24 @ 06:37 by Fabrizio Schwartz MD) Hypokalemia ?E87.6 - Hypokalemia (ICD-10) Other abnormalities of gait and mobility ?R26.89 - Other abnormalities of gait and mobility (ICD-10) Muscle spasm of back ?M62.830 - Muscle spasm of back (ICD-10) Hyperlipemia ?E78.5 - Hyperlipidemia, unspecified (ICD-10) Nutritional deficiency ?E63.9 - Nutritional deficiency, unspecified (ICD-10) Major depression ?F32.9 - Major depressive disorder, single episode, unspecified (ICD-10) Hypothyroid ?E03.9 - Hypothyroidism, unspecified (ICD-10) Constipation ?K59.00 - Constipation, unspecified (ICD-10) Chronic kidney disease ?N18.9 - Chronic kidney disease, unspecified (ICD-10) 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 GENERAL: Uncomfortable elderly female holding emesis basin. NEURO: Alert and oriented. Moves all extremities. Face is symmetric and expressive. EYES: PERRL. No scleral icterus or conjunctival injection. No discharge. HENT: Normocephalic, atraumatic. Hearing is grossly intact. Nares grossly patent and without discharge. Mucous membranes moist. NECK: No JVD. Patient moves neck without restriction. CARDIO: Rhythm regular. Normal rate. No murmur, rub, or gallop. Pulses equal bilaterally in the upper and lower extremity. No lower extremity edema. PULM: Lungs clear to auscultation in all altman. No wheezes, rales, or rhonchi. No conversational dyspnea. No splinting, stridor, or accessory muscle use. GI/: Generalized tenderness. Rebound and guarding present. Decreased bowel sounds. EXTREMITIES: Symmetric muscle bulk. No joint swelling. No clubbing, cyanosis, or deformity. SKIN: Warm and dry. Normal turgor. No rash or lesions appreciated. PSYCH: Mood, affect, and interaction is appropriate to the setting. Constitutional Vital Signs, click to edit/add: Last Vital Signs Temp 98.7 F 08/21/24 04:48 Pulse 82 08/21/24 06:40 Resp 19 08/21/24 06:40 BP 111/65 08/21/24 06:30 Pulse Ox 95 08/21/24 06:40 O2 Del Method Room Air 08/21/24 04:48 Course Vital Signs Vital signs: Vital Signs Temperature 98.7 F 08/21/24 04:48 Pulse Rate 81 08/21/24 04:48 Respiratory Rate 18 08/21/24 04:48 Blood Pressure 121/64 08/21/24 04:48 Pulse Oximetry 96 08/21/24 04:48 Oxygen Delivery Method Room Air 08/21/24 04:48 Temperature 98.7 F 08/21/24 04:48 Pulse Rate 82 08/21/24 06:40 Respiratory Rate 19 08/21/24 06:40 Blood Pressure 111/65 08/21/24 06:30 Pulse Oximetry 95 08/21/24 06:40 Oxygen Delivery Method Room Air 08/21/24 04:48 MDM - Abdominal Pain MDM Narrative Medical decision making narrative: 89-year-old female to the emergency department with chief complaint of abdominal pain. Vital stable, the patient is afebrile. She does have peritoneal signs on abdominal exam. Basic labs, lactic acid, CT scan are ordered. CBC without major abnormality. Chemistry without major abnormality. Her lactate is elevated. CT scan with evidence of perforation, exact location is unknown. There is free air in the abdomen. Discussed findings with the patient. She would like to stay as close as possible to home. There is no surgery on-call at this facility at this time. A call was placed to [facility] and the case was discussed with Dr. Becker, he recommended sending her elsewhere. Case was discussed in its entirety with Dr. Alegre at [facility], given the patient's comorbidities and age she believes she is best served at a tertiary care facility. I discussed the recommendations of the above local general surgeons with the patient. She has a preference for [facility] if she requires tertiary care. A call was placed to this facility. Patient is penicillin allergic. Cipro and Flagyl were ordered. Care was signed out to Dr. Alonso with transfer pending. Medical Records Attestation: I reviewed the patient's medical records. Lab Data Attestation: I reviewed the patient's lab results. Labs: Lab Results 08/21/24 Range/Units 05:00 WBC 4.8 (4.0-11.0) 10^3/uL RBC 5.07 (4.20-5.40) 10^6/uL Hgb 15.8 (12.0-16.0) g/dL Hct 46.1 (36.0-48.0) % MCV 90.9 (81.0-99.0) fL MCH 31.2 (26.7-34.0) pg MCHC 34.3 (29.9-35.2) g/dL RDW 12.4 (11.0-15.0) % Plt Count 233 (150-450) 10^3/uL MPV 10.1 (9.5-13.5) fL Neut % (Auto) 84.8 H (43.0-75.0) % Lymph % (Auto) 11.3 L (20.5-60.0) % [place] % (Auto) 2.5 (1.7-12.0) % Eos % (Auto) 0.4 L (0.9-7.0) % Baso % (Auto) 0.2 (0.2-2.0) % Neut # (Auto) 4.1 (1.4-6.5) 10^3/uL Lymph # (Auto) 0.5 L (1.2-3.8) 10^3/uL [place] # (Auto) 0.1 L (0.3-0.8) 10^3/uL Eos # (Auto) 0.0 (0.0-0.7) 10^3/uL Baso # (Auto) 0.0 (0.0-0.1) 10^3/uL Abs Immat Gran (auto) 0.04 H (0.00-0.03) 10^3/uL Imm/Tot Granulo (auto) 0.8 H (0.0-0.5) % Sodium 139 (136-145) mmol/L Potassium 3.9 (3.5-5.1) mmol/L Chloride 102 (98-107) mmol/L Carbon Dioxide 25.7 (21.0-32.0) mmol/L Anion Gap 15.2 BUN 29.0 H (7.0-18.0) mg/dL Creatinine 1.13 H (0.55-1.02) mg/dL Est GFR ( Amer) 55 L (>=60 mL/min/1.73m^2) Est GFR (Non-Af Amer) 45 L (>=60 mL/min/1.73m^2) BUN/Creatinine Ratio 25.7 Glucose 98 (74-106) mg/dL Lactate 3.5 H* (0.4-2.0) mmol/L Calcium 8.9 (8.5-10.1) mg/dL Total Bilirubin 0.6 (0.2-1.0) mg/dL AST 20 (15-37) U/L ALT 29 (14-59) U/L Alkaline Phosphatase 56 (46-116) U/L Troponin I High Sens 29.7 (4.0-51.3) pg/mL Total Protein 5.6 L (6.4-8.2) g/dL Albumin 3.1 L (3.4-5.0) g/dL Globulin 2.5 g/dL Albumin/Globulin Ratio 1.2 Lipase 12.0 L (16.0-77.0) U/L Imaging Data CT scan - abdomen: Attestation: I have reviewed the pertinent imaging results. Radiologist's impression: ITS Impressions Abdomen/Pelvis CT 08/21/24 04:48 IMPRESSION: Small amount of free intraperitoneal air. Consider a bowel perforation. The location is unknown Inflammatory changes consistent with small bowel enteritis Electronically authenticated by: ECHO PATEL Date: 08/21/2024 06:01 ECG Data Attestation: I personally reviewed and interpreted this ECG as follows: (Normal sinus rhythm at a rate of 84. No STEMI. Normal QTc.) Discharge Plan Discharge Chief Complaint: Abdominal Pain Clinical Impression: Bowel perforation, Peritonitis, Acidosis, lactic, Chronic systolic (congestive) heart failure Patient Disposition: [facility] Time of Disposition Decision: 06:36 Mode of Transportation: EMS
[2024-08-21] MEDS: 0.9 % SODIUM CHLORIDE 1,000 ML 1000 ML IV ×2 (06:25→09:10)
[2024-08-21] MEDS: CIPROFLOXACIN IN 5 % DEXTROSE 400 MG/200 ML PREMIX 200 MG IV (06:25)
[2024-08-21] MEDS: METRONIDAZOLE/SODIUM CHLORIDE 500 MG/100 ML PREMIX 100 MG IV (07:29)
[2024-08-21] MEDS: ONDANSETRON PF 4 MG/2 ML VIAL IV (07:30)
[2024-08-21] MEDS: FENTANYL CITRATE/PF 100 MCG/2 ML VIAL 50 MCG IV (08:14)
--- NOTE | 2024-08-21 09:01 | PC.NURSE ---
PT VOMITED AT THIS TIME- GOT SOME ON HERSELF. PT CLEANED UP, NEW LINENS AND NEW GOWN PLACED. WARM BLANKET GIVEN. INFORMED DR CLARK.
== END 2024-08-21 10:33 | disposition short-term general hospital (02) ==
PROVIDERS: Emergency Provider Student in an Organized Health Care Education/Training Program; PCP Nurse Practitioner Family
DX: K63.1 Perforation of intestine (nontraumatic) (principal); K65.9 Peritonitis, unspecified; I50.22 Chronic systolic (congestive) heart failure; E78.5 Hyperlipidemia, unspecified; M81.0 Age-related osteoporosis without current pathological fracture; E87.20 Acidosis, unspecified
CPT/HCPCS: 36415; 74177; 80053; 83605; 83690; 84484; 85025; 93005; 96361; 96365; 96366; 96367; 96368; 96375; 99285; J0744; J1171; J1836; J2405; J2550; J3010; Q9967

== ENCOUNTER 2024-10-23 11:34 | Outpatient (REF) | payer MEDICARE, MEDICAID, SELFPAY ==
--- OUTSIDE RECORDS SUMMARY | 2024-10-23 11:41 | XMS_ITS | CCD ---
Author Organization [facility] Care Team Providers Care [place] Carpenter Name Role Phone JEANNETTESAM Attending Unavailable FAN ELLIOTT Primary Care Unavailable Fan Elliott Unavailable Unavailable Unavailable Peterson Mejia Unavailable Echo Guillen Unavailable Peewee Mondragon Unavailable [phone] DO Fan Elliott Primary Care Provider AKHIL Mcgraw Emergency Provider Al MD Rico Irizarry Admit Provider MD Peterson Mejia Other Provider RADHA Jane Other Provider MD Peewee Mondragon Other Provider [phone] MD Yoav Hsu Attending Provider SHEY Lee Attending Provider AKHIL Mcgraw Referring Provider [phone] Cece Anguiano II Unavailable [phone] DO Fan Elliott Primary Care Provider MD Cece Anguiano II Attending Provider DO Fan Elliott Primary Care Provider SHEY Lee Attending Provider AKHIL Mcgraw Referring Provider Unavailable Unavailable Jeannette, Dr. Sam Hammonds Referring Delia vailable LexiFan Shubham Primary Care Unavailable Machado, Dr. Sam Hammonds Attending Delia vailable Machado, Dr. Sam Hammonds Referring Delia vailable Fan Elliott Shubham Primary Care Unavailable Machado, Dr. Sam Hammonds Attending Delia vailable Jeannette, MD Vargas Attending Provider [phone] SHEY Lee Attending Provider AKHIL Mcgraw Referring Provider SHEY Lee Attending Provider AKHIL Mcgraw Referring Provider Sakshi Ojeda Unavailable DO Fan Elliott Primary Care Provider MD Cece Anguiano II Attending Provider MD Sam Machado Attending Provider SHEY Lee Attending Provider AKHIL Mcgraw Referring Provider DO Fan Elliott Attending Provider [phone] DO Fan Elliott Primary Care Provider [phone] AKHIL Whitaker Emergency Provider DO Fan Elliott Attending Provider DO Fan Elliott Primary Care Provider DO Peewee Jackson Emergency Provider SAM Mayen Attending Unavailable LEXIFAN SHUBHAM Primary Care Unavailable DO Fan Elliott Primary Care Provider DO Peewee Jackson Emergency Provider UnavaDO Fan Holm Attending Provider MD Sakshi Ojeda Referring Provider GIL Hill Primary Care Provider [phone] MD Sakshi Ojeda Attending Provider Fan Elliott DO Unavailable Fan Naidu DO Unavailable Sergio WERNERCKaren Primary Care Provider Rusty Sakhsi FIGUEROA Attending Provider Rusty, Sakshi Attending Unavailable Karen [...] Unavailable Fan Elliott DO Primary Care Provider Sergio TRANSACTION MANAGER-Karen DEMARCO Primary Care Provider Unavailable Primary Care Provider Unavailnneka e KAREN HILL Referring Unavailable KAREN HILL Primary Care Unavailable KAREN HILL Referring Unavailable KAREN HILL Primary Care Unavailable PEEWEE GRESHAM Attending Unavailable PEEWEE GRESHAM Referring Unavailable FAN ELLIOTT Primary Care Unavailable YARELIS RODRIGUEZ. Attending Unavailable KAREN HILL Primary Care Unavailable CHARLOTTE BARNEY Attending Unavailable CHARLOTTE BARNEY Referring Unavailable KAREN HILL Primary Care Unavailable MARINE MARY Attending Unavailable KAREN HILL Referring Unavailable KAREN HILL Primary Care Unavailable FAN ELLIOTT Referring Unavailable FAN ELLIOTT Primary Care Unavailable MARINE MARY Attending Unavailable MARINE MARY Referring Unavailable KAREN HILL Primary Care Unavailable JOHN WALDEN Admitting Unavailable JOHN WALDEN Attending Unavailable KAREN HILL Referring Unavailable KAREN HILL Primary Care Unavailable KADEEM TAM Referring Unavailable KAREN HILL Primary Care Unavailable KAREN HILL Primary Care Unavailable KAILASH ARAGON Attending Unavailable Fan Elliott DO Primary Care Provider [phone] BLANE OVALLES Admitting Unavailable BLANE OVALLES Attending Unavailable FABRIZIO CALI Referring Unavailable HILLKAREN Primary Care Unavailable KADEEM ATM Consulting Unavailable COURTNEY MEYER Consulting Unavailable ECHO ESPAÑA Consulting Unavailable [facility] Consulti hayder Unavailable KADEEM TAM Attending Unavailable KAREN HILL C Referring Unavailable SERGIO KAREN C Primary Care Unavailable SERGIO KAREN C Referring Unavailable HILL KAREN C Primary Care Unavailable HILL KAREN C Referring Unavailable HILL KAREN C Primary Care Unavailable HLIL KAREN C Referring Unavailable HILL, KAREN C Primary Care Unavailable HILL KAREN C Referring Unavailable HILL, KAREN C Primary Care Unavailable Allergies Allergy Classification Reported Allergen(s) Allergy Type Date of Onset Reaction(s) Facility (20 sources) Penicillins; Translations: [Penicillins] Allergy to drug (finding) 03-20-20 [facility] Comment on above: Tolerating meropenem therapy during 01-19-22 admission (3 sources) Pentazocine; Translations: [Talwin NX TABS] Drug Allergy [facility] 250 DO Work Phone: (7 sources) Acetaminophen / HYDROcodone Drug Allergy Unknown [facility] Other (7 sources) Acetaminophen / oxyCODONE Drug Allergy Unknown [facility] Other (10 sources) Penicillin V Drug Allergy 07-20-20 Unknown, Unknown Reaction [facility] (7 sources) Penicillins (Antibiotic) Propensity to adverse reactions Unknown [facility] Other (9 sources) Pentazocine Drug Allergy Unknown [facility] Other (20 sources) buPROPion; Translations: [bupropion] Drug Allergy 03-20-20 Hallucinating [facility] (20 sources) Pentazocine; Translations: [pentazocine] Drug Allergy 03-20-20 Unknown Reaction [facility] (9 sources) PENTAZOCINE-NALO XONE; Translations: [PENTAZOCINE-NAL OXONE] Propensity to adverse reactions to drug (disorder) 07-06-20 [facility] 3 Repository (4 sources) Acetaminophen; Translations: [acetaminophen] Drug Allergy 07-20-20 Unknown Reaction [facility] (4 sources) HYDROcodone; Translations: [hydrocodone] Drug Allergy 07-20-20 Unknown Reaction [facility] (4 sources) oxyCODONE; Translations: [oxycodone] Drug Allergy 07-20-20 Unknown Reaction [facility] (12 sources) Penicillins Drug Allergy 01-01-20 [facility] (20 sources) Sulfacetamide; Translations: [SULFACETAMIDE] Drug Allergy 01-01-20 [facility] (12 sources) Pentazocine-Nalo xone Hcl Drug Allergy 07-06-20 Unknown [facility] Healthcare Work Phone: (1 source) Penicillin Drug Allergy 07-14-20 [facility] Repository (1 source) Penicillins Drug allergy (disorder) 07-14-20 [facility] Repository (5 sources) Penicillins Propensity to adverse reactions to drug 04-28-20 [facility] Medications Current Medications Medication Drug Class(es) Dates Sig (Normalized) Sig (Original) acetaminophen 32 mg/ml oral solution (1 source) Start: 09-09-2024 End: 09-19-2024 take 650 mg by mouth every six hours acetaminophen (TYLENOL) 650 mg/20.3 mL solution Take 20.3 mL (650 mg total) by mouth every 6 (six) hours for 10 days. 812 mL 09/09/2024 09/19/2024 Active acetaminophen 325 mg / HYDROcodone bitartrate 5 mg oral tablet (20 sources) Opioid Agonist Start: 08-17-2024 take 1 tablet by mouth every eight hours as needed for pain HYDROcodone-acetami nophen (NORCO) 5-325 mg per tablet Take 1 tablet by mouth every 8 (eight) hours as needed for pain. 08/17/2024 Active Start: 03-05-2022 End: 06-19-2022 take 1 tablet by mouth every six hours as needed for pain Hydrocodone-Acetaminophen 5-325 mg table t Discontinued 1 TAB PO Q6H as needed for Pain March 04, 2022 11:00pm June 19, 2022 2:01pm Start: 09-07-2017 End: 09-30-2018 take 1 tablet by mouth every four to six hours as needed for pain Hydrocodone-Acetaminophen ([place]) 5-325 mg Tablet Discontinued 1 TAB PO EVERY 4-6 HOURS as needed for Pain 7 September 07, 2017 12:00am September 30, 2018 3:04pm [id number] 200 actuat albuterol 0.09 mg/actuat metered dose inhaler (17 sources) beta2-Adrenergic Agonist Start: 10-02-2022 albut margo HFA 90 mcg/act inhaler Inhale 1 puff if needed. 10/02/2022 Active take 2 puff(s) by in halation every six hours as needed for wheezing albuterol (PROVENTIL HFA;VENTOLIN HFA) 9 0 mcg/actuation inhaler Inhale 2 puffs every 6 (six) hours as needed for wheezing. Active ascorbic acid 1000 mg oral tablet [...] 12:00am June 18, 2023 8:11pm bacillus coagulans [id number] unt / inulin 250 mg oral capsule (11 sources) Start: 06-10-2023 take 1 capsule by mouth in the morning Bacillus Coagulans-Inulin (Probiotic) 1-250 BILLION-MG capsule Indications: Diverticulosis of intestine, part unspecified, without perforation or abscess without bleeding Take 1 capsule by mouth in the morning. 90 capsule 1 06/10/2023 Active bifidobacterium animalis [id number] unt / lactobacillus acidophilus [id number] unt oral capsule (6 sources) take 1 capsule by mouth in the morning L. acidophilus/Bifid. animalis 32 billion cell capsule Take 1 capsule by mouth in the morning. Active Calcium 1200 7207-6318 MG-UNIT (2 sources) take 1 tablet by mouth once daily Calcium 1200 5207-4199 MG-UNIT 1 tablet Orally Once a day Active calcium ascorbate 500 mg oral tablet (2 sources) Start: 07-14-2024 take 1 tablet by mouth once daily Ascorbate Calcium (Vitamin C) 500 mg tablet Active 500 MG PO Daily July 14, 2024 12:00am calcium carbonate 1250 mg oral tablet (20 sources) Start: 08-08-2024 take 1 tablet by mouth in the morning calcium carbonate (OS-CLYDE) 500 mg elemental (1,250 mg) tablet Take 1 tablet (500 mg total) by mouth in the morning. 08/08/2024 Active Start: 07-14-2024 take 1 tablet by liz th once daily Calcium Carbonate (Oyster Shell Calcium) [...] 07, 2017 12:00am September 30, 2018 3:03pm take 1 tablet by liz th in the morning, then take 1 tablet by mouth at mealtime carvediloL (COREG) 12.5 mg tablet Take 1 tablet (12.5 mg total) by mouth in the morning and 1 tablet (12.5 mg total) in the evening. Take with meals. Active Carvedilol Activ e cholecalciferol 0.025 mg oral [...] Active take 1 tablet by liz th in the morning cholecalciferol 1,000 units tablet Take 1 tablet (1,000 Units total) by mouth in the morning. Active take 1 tablet by liz th once daily Cholecalciferol 25 MCG (1000 UT) 1 tablet Orally Once a day Active take 1 capsule by mo ut once daily Cholecalciferol 25 MCG (1000 UT) 1 capsule Orally Once a day Active codeine phosphate 2 mg/ml / guaiFENesin 20 mg/ml oral solution (12 sources) Opioid Agonist Start: 09-26-2022 take 10 mL by mouth every six hours guaiFENesin-codeine (Robitussin-AC) 100-10 MG/5ML syrup Take 10 mL by mouth every 6 (six) hours. 09/26/2022 Active docosahexaenoic acid 120 mg / eicosapentaenoic acid 180 mg oral capsule (7 sources) Start: 08-08-2024 take 1 capsule by mouth in the morning omega 5-uuc-pee-fish oil (FISH OIL) 300 mg (120 mg- 180mg)-1,000 mg capsule capsule Take 1 capsule by mouth in the morning. 08/08/2024 Active take 1 capsule by mouth once wes ly Fish Oil 1000 MG Oral Capsule 1 daily Quantity: 0 Refills: 0 Ordered: 27-Jun-2021 DO Active docusate sodium 50 mg / sennosides, fci 8.6 mg oral tablet (1 source) Start: 09-09-2024 End: 09-19-2024 take 2 tablets by mouth in the morning sennosides-docusate sodium (SENOKOT-S) 8.6-50 mg Take 2 tablets by mouth in the morning and 2 tablets before bedtime. Do all this for 10 days. 40 tablet 09/09/2024 09/19/2024 Active dronabinol 2.5 mg oral capsule (1 source) Cannabinoid Start: 09-09-2024 End: 09-19-2024 take 1 capsule by mouth in the morning, then take 1 capsule by mouth before mealtime droNABinol (MARINOL) 2.5 mg capsule Indications: Perforated bowel (CMS-HCC) Take 1 capsule (2.5 mg total) by mouth in the morning and 1 capsule (2.5 mg total) in the evening. Take before meals. Do all this for 10 days. 20 capsule 09/09/2024 09/19/2024 Active ezetimibe 10 mg oral tablet (20 sources) Dietary Cholesterol Absorption Inhibitor Start: 09-07-2017 End: 07-14-2024 take 1 tablet by mouth once daily ezetimibe (Zetia) 10 MG tablet Indications: Atherosclerosis of aorta (CMS/HCC) TAKE 1 TABLET BY MOUTH DAILY AT THE SAME TIME EVERY DAY 90 tablet 3 11/03/2023 Active fat cdpk-not-bsi-oliv -fish oil, SMOFLIPID, 20 % emulsion infusion (1 source) Start: 09-09-2024 End: 09-19-2024 fat ojyi-sbn-ewn-oliv-fish oil, SMOFLIPID, 20 % emulsion infusion Infuse 175 mL (35 g total) into a venous catheter in the morning for 10 days. 1750 mL 09/09/2024 09/19/2024 Active furosemide 20 mg oral tablet (20 [...] Combination No.4 (Probiotic) 3 billion cell Capsule (17 sources) Start: 09-07-2017 Lactobacillus Combination No.4 (Probiotic) [...] empty stomach Orally Once a day Active linaclotide 0.072 mg oral capsule (5 sources) Guanylate Cyclase-C Agonist Start: 07-01-2024 take 1 capsule by mouth every other day LINZESS 72 mcg capsule Take 1 capsule (72 mcg total) by mouth every other day. 07/01/2024 Active magnesium oxide 500 mg oral tablet (20 sources) Start: 06-10-2023 take 1 tablet by mouth in the morning magnesium oxide 500 mg tablet Take 1 tablet (500 mg total) by mouth in the morning. 08/08/2024 Active take 1 tablet by mouth twice wes ly Magnesium Oxide (Laxative) 500 MG 1 TABLET Orally TWICE A DAY Active Magnesium Oxide Active meclizine hydrochloride 25 mg oral tablet (18 sources) Antiemetic Start: 06-19-2023 End: 07-14-2024 take [...] sources) Polyene Antifungal Start: 02-04-2022 nystatin (Mycostatin) 126778 UNIT/GM powder Apply 1 application topically every 12 (twelve) hours. 02/04/2022 Active oxyCODONE hydrochloride 5 mg oral tablet (1 source) Opioid Agonist Start: 09-09-2024 End: 09-16-2024 take 1 tablet by mouth every eight hours as needed for pain oxyCODONE (ROXICODONE) 5 mg immediate release tablet Indications: Perforated bowel (CMS-HCC) Take 1 tablet (5 mg total) by mouth every 8 (eight) hours as needed for pain for up to 7 days. Max Daily Amount: 15 mg 10 tablet 09/09/2024 09/16/2024 Active Oyster Shell 500 MG (1 source) take 1 tablet by mouth once daily at mealtime Oyster Shell 500 MG 1 tablet with food Orally ONCE A DAY Active polyethylene glycol 3350 24122 mg powder for oral solution (20 sources) Osmotic Laxative Start: 08-08-2024 polyethylene glycol (GLYCOLAX) 17 gram/dose powder Take 17 g by mouth daily as needed (constipatiion). 08/08/2024 Active Start: 01-18-2022 End: 11-19-2022 Polyethylene Glycol 3350 (Mi ralax) 17 gram/dose Powder Discontinued 17 GM PO Daily as needed for Constipation January 17, 2022 11:00pm November 19, 2022 1:35pm potassium chloride 20 meq extended release oral tablet (6 sources) Start: 07-20-2023 take 1 tablet by liz th every twenty-four hours Potassium Chloride ER 20 MEQ 1 tablet with food Orally Once a day for 90 days Jul, Active take 1 tablet by mouth in the mo rning potassium chloride (KLOR-CON M 20) 20 MEQ CR tablet Take 1 tablet (20 mEq total) by mouth in the morning and 1 tablet (20 mEq total) before bedtime. Active Potassium Chloride 20 mEq tablet,ER particles/crystals (2 sources) Start: 07-14-2024 Potassium Chlo ride 20 mEq tablet,ER particles/crystals Active 20 MEQ [...] Probiotic Active Sennosides (Senna) 8.6 mg tablet (2 sources) Start: 07-14-20 24 Sennosides (Senna) 8.6 mg tablet Active MG PO July 14, 2024 12:00am sennosides, fci 8.6 mg oral tablet (5 sources) Start: 08-08-20 take 1 tablet by mouth every eight hours as needed for constipation SENNA 8.6 mg tablet Take 1 tablet (8.6 mg total) by mouth every 8 (eight) hours as needed for constipation. 08/08/2024 Active sertraline 25 mg oral tablet (19 sources) Serotonin Reuptake Inhibitor Start: 12-18-19 sertraline (Zoloft) 25 MG tablet 12/18/2023 Active tamsulosin hydrochloride 0.4 mg oral capsule (4 sources) alpha-Adrenergic Cheryl Start: 09-09-19 End: 10-09-19 take 1 capsule by mouth once daily tamsulosin (FLOMAX) 0.4 mg capsule Take 1 capsule (0.4 mg total) by mouth nightly for 30 days. 30 capsule 09/09/2024 10/09/2024 Active tiZANidine 4 mg oral capsule (7 sources) Central alpha-2 Adrenergic Agonist Start: 07-14-20 take 1 capsule by mouth once daily at bedtime as needed Tizanidine 4 mg capsule Active 4 MG PO Daily at bedtime as needed July 14, 2024 12:00am take 1 tablet by liz th every eight hours as needed tiZANidine (ZANAFLEX) 4 mg tablet Take 1 tablet (4 mg total) by mouth every 8 (eight) hours as needed for muscle spasms. Active TPN FOR DISCHARGE (5 sources) Start: 09-09-2024 take 670 mL intravenously once TPN FOR DISCHARGE See most recent TPN order. Flush IV line with heparin and/or normal saline per agency protocol. 670 mL 10 09/09/2024 Active traMADol hydrochloride 50 mg oral tablet (7 sources) Opioid Agonist Start: 08-04-2024 End: 09-03-2024 take 1 tablet by mouth every six [...] Complete traZODone hydrochloride 50 mg oral tablet (13 sources) Serotonin Reuptake Inhibitor Start: 09-09-2024 End: 09-19-2024 take 1 tablet by mouth once daily traZODone (DESYREL) 50 mg tablet Take 1 tablet (50 mg total) by mouth nightly for 10 days. 10 tablet 09/09/2024 09/19/2024 Active Start: 09-23-2023 traZODone (Aron yrel) 50 MG tablet Take 25 mg by mouth at bedtime 09/23/2023 Active Completed/Discontinued Medications Medication Drug Class(es) Dates Sig (Normalized) Sig (Original) aspirin 81 mg delayed release oral tablet (17 sources) Platelet Aggregation Inhibitor, Nonsteroidal Anti-inflammatory Drug Start: 09-07-2017 End: 05-22-2021 take 2 tablets by mouth once daily Aspirin 81 mg Tablet,Delayed Release (Dr/Ec) Discontinued 162 MG PO daily September 07, 2017 12:00am May 22, 2021 8:22am Start: 09-07-2017 End: 05-22-2021 take 162 mg by mouth once daily Aspirin Discontinued 162 MG PO daily September 07, 2017 12:00am May 22, 2021 8:22am 24 hr buPROPion hydrochloride 150 mg extended release oral tablet (19 sources) Aminoketone Start: 06-02-2021 take 1 tablet [...] 0 Refills: 0 Ordered: 27-Jun-2021 DO Active ceFAZolin (ANCEF) 1,000 mg in sterile water 10 mL IV syringe (1 source) Start: 09-29-2024 End: 09-29-2024 1,000 mg, IntraVENous, Once, On Roxy 09/29/24 at 1430, For 1 dose, Administer over 5 mins. Reconstitute 1 g vial with 10 mL Sterile Water. Withdraw entire contents. clindamycin 300 mg oral capsule (2 sources) [...] as needed Orally Once a day Active doxycycline hyclate 100 mg oral capsule (20 sources) Tetracycline-class Drug Start: 01-21-2022 End: 11-19-2022 take 1 capsule by mouth twice daily Doxycycline Hyclate 100 mg capsule Discontinued 100 MG PO Twice daily 80 40 January 20, 2022 11:00pm November 19, 2022 1:35pm Fish Oils (6 sources) Fish Oil Not-Taking Fish Oil Active gabapentin 300 mg oral capsule (19 sources) Anti-epileptic Agent Start: 05-24-2021 End: 01-17-2022 take 1 capsule by mouth three times daily Gabapentin 300 mg capsule Discontinued 300 MG PO Three times daily May 23, 2021 11:00pm January 17, 2022 10:46pm Start: 04-11-2021 Gabapentin 300 MG Oral Capsule Quantity: 270 Refills: 0 Ordered: 11-Apr-2021 DO Start : 11-Apr-2021 Active Magnesium (20 sources) Start: 03-05-2022 End: 07-14-2024 Magnesium 250 [...] 2022 12:00am take 1 tablet by liz th once daily Magnesium 400 MG Oral Tablet 1 daily Quantity: 0 Refills: 0 Ordered: 27-Jun-2021 DO Active meloxicam 15 mg oral tablet (19 sources) Nonsteroidal Anti-inflammatory Drug Start: 06-06-2021 Meloxicam [...] 06/26/2024 methylPREDNISolone acetate 20 mg/ml injectable suspension (18 sources) Corticosteroid Start: 07-20-2024 End: 07-20-2024 methylPREDNISolone [...] on package instructions 21 tablet 03/14/2024 Active [place] 0-Okl-Hec-Fish Oil (Fish Oil) 1,000 mg (120 mg-180 mg) Capsule (17 sources) Start: 09-07-2017 End: 06-19-2022 take 1 capsule by mouth once daily [place] 2-Mqn-Rda-Fish Oil (Fish Oil) 1,000 mg (120 mg-180 mg) Capsule Discontinued 1000 MG PO daily September 07, 2017 12:00am June 19, 2022 2:00pm Start: 09-07-2017 End: 06-19-2022 take 1 capsule by mouth once daily [place] 7-Hoo-Nzw-Fish Oil (Fish Oil) 1,000 mg (120 mg-180 mg) Capsule Discontinued 1000 MG PO daily September 07, 2017 1:00am June 19, 2022 3:00pm Start: 09-07-2017 take 1 capsule by mo [facility] once daily [place] 9-Sxb-Wqt-Fish Oil (Fish Oil) 1,000 mg (120 mg-180 [...] pantoprazole 20 mg delayed release oral tablet (17 sources) Proton Pump Inhibitor Start: 10-15-2021 End: 03-06-2022 take 1 tablet by mouth once daily Pantoprazole (Protonix) 20 mg Tablet,Delayed Release (Dr/Ec) Discontinued 20 MG PO Daily October 15, 2021 12:00am March 06, 2022 10:01am Vit C-Vit K-Zpakne-Qja-Om-3 (Ocuvite) 585-39-1-150 ve-ltsk-ly-mg Capsule (17 sources) Start: 09-07-2017 End: 05-22-2021 take 1 capsule by mouth once daily Vit C-Vit Y-Bpzacb-Gna-Om-3 (Ocuvite) 109-74-3-150 cg-xdzv-iv-mg Capsule Discontinued 1 CAP PO daily September 07, 2017 12:00am May 22, 2021 8:22am Start: 09-07-2017 End: 05-22-2021 take 1 capsule by mouth once daily Vit C-Vit L-Eqqoco-Lbs-Om-3 (Ocuvite) 843-67-9-150 mi-rycl-gv-mg Capsule Discontinued 1 CAP PO daily September [...] Onset: 4 Chronic Deficiency and other anemia (18 sources) Anemia; Translations: [Anemia, unspecified] 03-06-2022 Episodic Deficiency and other anemia (11 sources) Anemia, unspecified; Translations: [Anemia, unspecified] Onset: 3 03-20-2022 Episodic Disorders of lipid metabolism (20 sources) Hyperlipidemia, unspecified; Translations: [Hyperlipidemia] Onset: 9 Chronic Diverticulosis and diverticulitis (20 sources) Diverticulitis of colon; Translations: [Diverticulitis of large intestine without perforation or abscess without bleeding] Onset: 2 12-31-2022 Chronic E Codes: Fall (18 sources) Fall; Translations: [Unspecified fall, initial encounter] 03-06-2022 Episodic Essential hypertension (18 sources) Essential (primary) hypertension; Translations: [Benign essential hypertension] Onset: 9 Chronic Fluid and electrolyte disorders (20 sources) Acute hypokalemia; Translations: [Hypokalemia] Onset: 3 05-22-2021 Episodic Hypertension with complications and secondary hypertension (9 sources) Chronic kidney disease due to hypertension; [...] that caused by tuberculosis or sexually transmitteddisease) (17 sources) Conjunctivitis; Translations: [Unspecified conjunctivitis] 03-06-2022 Episodic Malaise and fatigue (12 sources) Chronic fatigue syndrome; Translations: [Chronic fatigue syndrome] Onset: 9 12-31-2022 Chronic Malaise and fatigue (18 sources) Asthenia; Translations: [Weakness] 05-22-2021 Episodic Mood disorders (20 sources) Major depression, single episode; Translations: [Major depressive disorder, single episode, unspecified] Onset: 1 12-31-2022 Chronic Nausea and vomiting (19 sources) Nausea; Translations: [Nausea and vomiting] Onset: 2 Resolved: 2 Episodic Nutritional deficiencies (1 source) Vitamin D deficiency; Translations: [Vitamin D deficiency, unspecified] 07-10-2024 Chronic Open wounds of head; neck; and trunk (17 sources) Facial laceration ; Translations: [Laceration without [...] 1 02-19-2023 Chronic Other connective tissue disease (17 sources) Pain in toe; Translations: [Pain in right toe(s)] 03-06-2022 Episodic Other connective tissue disease (1 source) Pain in right toe(s); Translations: [Pain in limb] 01-21-2022 Episodic Other connective tissue disease (6 sources) Trochanteric bursitis of left hip; Translations: [Trochanteric bursitis, left hip] 07-20-2024 Episodic Other diseases of kidney and ureters (4 sources) Secondary hyperparathyroidism; Translations: [Secondary hyperparathyroidism of renal origin] 07-14-2024 Chronic Other diseases of kidney and ureters (5 sources) Secondary hyperparathyroidism of renal origin; Translations: [Secondary hyperparathyroidism (of renal origin)] Onset: 4 Chronic Other ear and sense organ disorders (13 sources) Sensorineural hearing loss, bilateral; Translations: [Sensorineural hearing loss, bilateral] Onset: 3 12-31-2022 Chronic Other eye disorders (17 sources) Subconjunctival hemorrhage; Translations: [Conjunctival hemorrhage, unspecified eye] 09-07-2017 Episodic Other gastrointestinal disorders (5 sources) Perforation of intestine; Translations: [Perforation of intestine (nontraumatic)] Onset: 4 08-21-2024 Episodic Other gastrointestinal disorders (1 source) Perforation of intestine (nontraumatic); Translations: [Perforation of intestine (nontraumatic)] Onset: 4 Episodic Other nervous system disorders (12 sources) [...] 4 01-11-2024 Chronic Other nervous system disorders (5 sources) Mononeuropathy of lower limb; Translations: [Other specified mononeuropathies of left lower limb] Onset: 4 08-16-2024 Chronic Other nervous system disorders (1 source) [...] source) Pain; Translations: [Pain, unspecified] 08-04-2024 Episodic Residual codes; unclassified (2 sources) History of colectomy; Translations: [Acquired absence of other specified parts of digestive tract] 09-28-2024 Episodic Residual codes; unclassified (1 source) Pain, unspecified; Translations: [Pain, unspecified] Onset: 4 Episodic Residual codes; unclassified (2 sources) Acquired absence of other specified parts of digestive tract; Translations: [Acquired absence of other specified parts of digestive tract] Onset: 5 Episodic Rheumatoid arthritis and related disease (17 sources) Rheumatoid arthritis; Translations: [Rheumatoid arthritis] Onset: 3 Chronic Skin and subcutaneous tissue infections (18 sources) Local infection of the skin and subcutaneous tissue, unspecified; Translations: [Cellulitis of toe] Onset: 2 Resolved: 2 Episodic Skull and face fractures (17 sources) Closed fracture of nasal bones; Translations: [...] tachycardia, unspecified] Onset: 3 Unclassified (1 source) Black or Bloody Stool Onset: 5 Unclassified (1 source) Adbominal Pain Onset: 4 Unclassified (1 source) Low back pain, unspecified; Translations: [Low back pain, unspecified] Onset: 4 Unclassified (1 source) Perforated bowel Onset: 4 Past or Other Problems Problem Classification Problem Date Documented Da te Episodic/Chronic Abdominal pain (20 sources) Abdominal pain; Translations: [Unspecified abdominal pain] Onset: 4 10-15-2021 Episodic Cardiac dysrhythmias (18 sources) Palpitations; Translations: [Palpitations] Onset: 9 03-04-2024 Episodic Coagulation and hemorrhagic disorders (1 source) Spontaneous ecchymoses; Translations: [Spontaneous ecchymoses] Onset: 4 Episodic Conditions associated with dizziness or vertigo (18 sources) Dizziness; Translations: [Dizziness and giddiness] Onset: 4 06-19-2023 Episodic Gastritis and duodenitis (1 source) Acute gastritis without bleeding Onset: 2 Resolved: 2 Episodic Mood disorders (17 sources) Mood disorders Onset: 3 Resolved: 4 05-12-2023 Other bone disease and musculoskeletal deformities [...] conditions (not mental disorders or infectious disease) (2 sources) Other specified abnormal findings of blood chemistry; Translations: [Blood chemistry abnormal] Onset: 4 10-27-2023 Episodic Residual codes; unclassified (1 source) History [...] Test Name Value Interpretation Reference Range Facility CBC AND AUTO DIFFon 10-13-19 25 ABSOLUTE BASOPHIL 0.0 X10E9/L Normal 0.0-0.2 [facility] Comment on above: Performed By: #### C BCA, CMP, 3016-3, 3024-7 #### [facility] ([id number]) [address], [address] [place] [address] ABSOLUTE NEUTROPHIL 4.2 X10E9/L Normal 1.5-6.6 [facility] Comment on above: Performed By: #### C BCA, CMP, 3016-3, 3024-7 #### [facility] ([id number]) [address], [address] [place] [address] Basophils/100 WBC (Bld) 0.2 % Normal [facility] Comment on above: Performed By: #### C BCA, CMP, 6-3, 3024-7 #### [facility] ([id number]) [address] [address] [place] [address] Eosinophils (Bld) [#/Vol] 0.2 10*3/uL Normal 0.0-0.4 [facility] Comment on above: Performed By: #### C BCA, CMP, 3016-3, 3024-7 #### [facility] ([id number]) [address] [place] [address] Eosinophils/100 WBC (Bld) 3.5 % Normal [facility] Comment on above: Performed By: #### C BCA, CMP, 3016-3, 3024-7 #### [facility] ([id number]) [address], [address] [place] [address] Erythrocyte distribution width (RBC) [Ratio] 13.8 % Normal 11.5-15.0 [facility] Comment on above: Performed By: #### C MEI CMP, 6-3, 302-7 #### [facility] ([id number]) [address], [address] [place] [address] Hematocrit (Bld) [Volume fraction] 25.7 % Low 35-47 [facility] Comment on above: Performed By: #### Gely HURLEY CMP, 6-3, 3023-7 #### [facility] ([id number]) [address], [address] [place] [address] Hemoglobin (Bld) [Mass/Vol] 8.4 g/dL Low 11.7-15.5 [facility] Comment on above: Performed By: #### Gely HURLEY CMP, 6-3, 3023-7 #### [facility] ([id number]) [address], [address] [place] [address] Lymphocytes (Bld) [#/Vol] 1.8 10*3/uL Normal 1.0-3.5 [facility] Comment on above: Performed By: #### Gely HURLEY CMP, 3015-3, 3023-7 #### [facility] ([id number]) [address] [place] [address] Lymphocytes/100 WBC (Bld) 25.8 % Normal [facility] Comment on above: Performed By: #### C MEI CMP, 3015-3, 3023-7 #### [facility] ([id number]) [address], [address] [place] [address] MCH (RBC) [Entitic mass] 29.4 pg Normal 27-34 [facility] Comment on above: Performed By: #### C MEI, CMP, 6-3, 302-7 #### [facility] ([id number]) [address], [address] [place] [address] MCHC (RBC) [Mass/Vol] 32.6 g/dL Normal 32-36 [facility] Comment on above: Performed By: #### C MEI, CMP, 3016-3, 3024-7 #### [facility] ([id number]) [address], [address] [place] [address] MCV (RBC) [Entitic vol] 90 fL Normal 80-100 [facility] Comment on above: Performed By: #### C BCA, CMP, 6-3, 302-7 #### [facility] ([id number]) [address], [facility] [address] [place] [address] Monocytes (Bld) [#/Vol] 0.6 10*3/uL Normal 0-0.9 [facility] Comment on above: Performed By: #### Gely BCA, CMP, 3015-3, 3023-7 #### [facility] ([id number]) [address], [address] [place] [address] Monocytes/100 WBC (Bld) 8.4 % Normal [facility] Comment on above: Performed By: #### Gely BCA, CMP, 6-3, 302-7 #### [facility] ([id number]) [address] [facility] [place] [address] Neutrophils/100 WBC (Bld) 62.1 % Normal [facility] Comment on above: Performed By: #### C BCA, CMP, 3015-3, 302-7 #### [facility] ([id number]) [address], [address] [place] [address] Platelet mean volume (Bld) [Entitic vol] 8.8 fL Normal 7-12 [facility] Comment on above: Performed By: #### C BCA, CMP, 6-3, 3024-7 #### [facility] ([id number]) [address], [address] [place] [address] Platelets (Bld) [#/Vol] 259 10*3/uL Normal 150-450 [facility] Comment on above: Performed By: #### C BCA, CMP, 3016-3, 3024-7 #### [facility] ([id number]) [address], [address] [place] [address] RBC COUNT 2.86 X10E12/L Low 3.80-5.20 [facility] Comment on above: Performed By: #### C BCA, CMP, 3016-3, 3024-7 #### [facility] ([id number]) [address], [facility] [address] [place] [address] WBC (Bld) [#/Vol] 6.8 10*3/uL Normal 4.0-11.0 [facility] Comment on above: Performed By: #### C BCA, CMP, 3016-3, 3024-7 #### [facility] ([id number]) [address], [address] [place] [address] COMPREHENSIVE METABOLIC PANE Ti 10-13-2024 Albumin [Mass/Vol] 2.0 g/dL Low 3.2-5.3 [facility] Comment on above: Performed By: #### C BCA, CMP, 3016-3, 3024-7 #### [facility] ([id number]) [address], [address] [place] [address] ALP [Catalytic activity/Vol] 110 U/L Normal 39-130 [facility] Comment on above: Performed By: #### C BCA, CMP, 3016-3, 3024-7 #### [facility] ([id number]) [address], [facility] [address] [place] [address] ALT [Catalytic activity/Vol] 22 U/L Normal 0-31 [facility] Comment on above: Performed By: #### C BCA, CMP, 3016-3, 3024-7 #### [facility] ([id number]) [address], [address] [place] [address] Anion gap [Moles/Vol] 7 mmol/L Normal 5-15 [facility] Comment on above: Performed By: #### C BCA, CMP, 3016-3, 3024-7 #### [facility] ([id number]) [address], [address] [place] [address] AST [Catalytic activity/Vol] 25 U/L Normal 0-41 [facility] Comment on above: Performed By: #### C BCA, CMP, 3016-3, 3024-7 #### [facility] ([id number]) [address], [address] [place] [address] Bilirubin [Mass/Vol] 0.6 mg/dL Normal 0.3-1.2 [facility] Comment on above: Performed By: #### C BCA, CMP, 3016-3, 3024-7 #### [facility] ([id number]) [address], [address] [place] [address] Calcium [Mass/Vol] 9.5 mg/dL Normal 8.5-10.5 [facility] Comment on above: Performed By: #### C BCA, CMP, 3016-3, 3024-7 #### [facility] ([id number]) [address], [address] [place] [address] Chloride [Moles/Vol] 99 mmol/L Normal 98-109 [facility] Comment on above: Performed By: #### C BCA, CMP, 3016-3, 3024-7 #### [facility] ([id number]) [address], [address] [place] [address] CO2 [Moles/Vol] 30 mmol/L Normal 22-32 [facility] Comment on above: Performed By: #### C BCA, CMP, 3016-3, 3024-7 #### [facility] ([id number]) [address] [address] [place] [address] Creatinine [Mass/Vol] 0.80 mg/dL Normal 0.40-1.00 [facility] Comment on above: Result Comment: METH OD TRACEABLE TO IDMS STANDARD Performed By: #### C CONY HURLEY, 3016-3, 3023-7 #### [facility] ([id number]) [address], [address] [place] [address] GFR/1.73 sq M.predicted among non-blacks MDRD (S/P/Bld) [Vol rate/Area] 70 mL/min/{1.73_m2} Normal >59 [facility] Comment on above: Result Comment: Reported eGFR is based on the CKD-EPI 2020 equation that does not use a race coefficient. Performed By: #### C CONY HURLEY, 3015-3, 3023-7 #### [facility] ([id number]) [address] [place] [address] Glucose [Mass/Vol] 103 mg/dL High 65-99 [facility] Comment on above: Performed By: #### C CONY HURLEY, 3015-3, 7 #### [facility] ([id number]) [address] [place] [address] Potassium [Moles/Vol] 4.0 mmol/L Normal 3.5-5.0 [facility] Comment on above: Performed By: #### C MEI CMP, 3015-3, 3023-7 #### [facility] ([id number]) [address] [address] [place] [address] Protein [Mass/Vol] 5.6 g/dL Low 6.0-8.0 [facility] Comment on above: Performed By: #### C MEI CMP, 6-3, 3023-7 #### [facility] ([id number]) [address], [address] [place] [address] Sodium [Moles/Vol] 136 mmol/L Normal 134-146 [facility] Comment on above: Performed By: #### C BCA, CMP, 3016-3, 3024-7 #### [facility] ([id number]) [address], [address] [place] [address] Urea nitrogen [Mass/Vol] 42 mg/dL High 5-27 [facility] Comment on above: Performed By: #### C BCA, CMP, 3016-3, 3024-7 #### [facility] ([id number]) [address], [address] [place] [address] CT ABDOMEN AND PELVIS W CONT on 10-13-2024 CT ABDOMEN AND PELVIS W CONT CT ABDOMEN AND PELVIS W CONT STUDY: CT ABDOMEN AND PELVIS W CONT INDICATION: Abdominal pain, acute, nonlocalized. TECHNIQUE: * CT abdomen and pelvis was performed after the administration of intravenous contrast. Coronal and sagittal reformatted images were generated and reviewed. Automated exposure control was utilized. * All CT scans at this facility use dose modulation, iterative reconstruction, and/or weight based dosing when appropriate to reduce radiation dose to as low as reasonably achievable. FINDINGS: Small bilateral pleural effusions. Right lower lobe atelectasis. No significant intraperitoneal free air. Nonaneurysmal abdominal aorta. Portal and splenic vein are patent. Cholecystectomy with suspected reservoir effect. Liver, spleen, adrenal glands are unremarkable. Fatty changes within the pancreas. Kidneys are symmetric in size and density. Small subcentimeter cystic focus in the right kidney is too small to characterize but statistically represents a small cyst. No obstructive uropathy. Nonspecific hypodensity in the right bladder may reflect excreting contrast or less likely blood products. 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 No significant parastomal hernia. Terminal ileum appears unremarkable. No evidence of small bowel obstruction. Few small diverticuli without evidence of diverticulitis. Dense stool burden. No significant fluid, retroperitoneal collection or suspicious lymphadenopathy. Slight body wall edema, laparotomy changes. Left breast calcification lumbosacral fusion hardware. Levoconvex curvature of the lumbar spine with degenerative spondylosis. IMPRESSION: * No evidence of acute intra-abdominal or pelvic process, by CT. * Postoperative changes of distal colectomy and left-sided colostomy. No bowel obstruction or parastomal hernia. * Few diverticuli without diverticulitis. * Small bilateral pleural effusions. * Diffuse body wall edema. * Hyperdensity in the bladder is suspected to reflect excreting contrast rather than blood products. Correlate with urinalysis if clinically warranted. Finalized by Gildardo Ralph on 10/13/2024 5:03 PM Normal [facility] CT ABDOMEN AND PELVIS W CONT CT ABDOMEN AND PELVIS W CONT STUDY: ABDOMEN AND PELVIS CT WITH CONTRAST CLINICAL HISTORY: Status post sigmoid colectomy with end colostomy creation, evaluate for possible PEG placement COMPARISON: 08/30/2024 TECHNIQUE: Routine CT abdomen and pelvis was performed according to standard protocol. FINDINGS: Small bilateral pleural effusions. Bilateral breast skin thickening and extensive diffuse body wall edema. Status post cholecystectomy. Mild postcholecystectomy related dilatation of the common bile duct. The liver, spleen, adrenal glands, and kidneys are unremarkable. Atrophic pancreas. There is currently no intervening bowel or liver between the distal gastric body/antrum and abdominal wall. No enlarged abdominal or pelvic lymph nodes. The bladder is unremarkable. Previous hysterectomy. Postoperative changes from distal colectomy and creation of left-sided colostomy. The small and large bowel are of normal caliber with no evidence of bowel wall thickening. No intra-abdominal fluid collection. No free intraperitoneal air. Degenerative and postoperative changes in the lumbar spine. IMPRESSION: * Study performed for preoperative planning purposes. * Status post distal colectomy and creation of a left-sided colostomy. No bowel obstruction. * Small bilateral pleural effusions. * Diffuse body wall edema. All CT scans at this facility use dose modulation, iterative reconstruction, and/or weight based dosing when appropriate to reduce radiation dose to as low as reasonably achievable. Finalized by Artemio Mckenzie MD on 10/13/2024 8:51 AM Normal [facility] LIPASEon 10-13-2024 Lipase [Catalytic activity/Vol] 17 U/L Normal 17-40 [facility] Comment on above: Performed By: #### C BCA, CMP, 3016-3, 3024-7 #### [facility] ([id number]) [address] [place] [address] MAGNESIUMon 10-13-2024 Magnesium [Mass/Vol] 1.8 mg/dL Normal 1.8-2.6 [facility] Comment on above: Performed By: #### C MEI, CMP, 3016-3, 3024-7 #### [facility] ([id number]) [address], [address] [place] [address] JUDE FECAL OCCULT BLDon 10-13 Hemoglobin.gastrointest inal Ql (Stl) Negative Normal NEG [facility] Comment on above: Performed By: #### C CONY HURLEY, 3016-3, 3024-7 #### [facility] ([id number]) [address], [facility] [address] [place] [address] Natriuretic peptide B [Mass/ Vol]on 10-13-2024 Natriuretic peptide B (Bld) [Mass/Vol] 424 pg/mL High <100.0 [facility] Comment on above: Performed By: #### C MEI, CMP, 3016-3, 3024-7 #### [facility] ([id number]) [address] [address] [place] [address] PROTIME AND INRon 10-13-2024 INR Coag (PPP) [Relative time] 1.0 {INR} Normal 0.8-1.1 [facility] Comment on above: Performed By: #### C MEI, CMP, 3016-3, 3024-7 #### [facility] ([id number]) [address] [address] [place] [address] PT Coag (PPP) [Time] 12.1 s Normal 9.8-13.2 [facility] Comment on above: Result Comment: NEW REFERENCE RANGE Performed By: #### C BCA, CMP, 3016-3, 3024-7 #### [facility] ([id number]) [address], [address] [place] [address] SARS/FLU A+B/RSV by NAAT/Mol [facility] 10-13-2024 SARS/FLU A+B/RSV by NAAT/Molecular FLU A PCR Negative (qualifier value) FLU B PCR Negative (qualifier value) RSV by PCR Negative (qualifier value) SARS CoV 2 Not detected (qualifier value) NOTE The Xpert Xpress SARS-CoV-2/Flu/RSV Plus test is a rapid, multiplexed real-time RT-PCR test intended for the simultaneous qualitative detection and differentiation of SARS-CoV-2, influenza A, influenza B and respiratory syncytial virus (RSV) viral RNA from individuals suspected of respiratory viral infection consistent with COVID-19 by their healthcare provider. This test has not been validated in asymptomatic patients. The Xpert Xpress SARS-CoV-2 test is intended for use by qualified and trained operators who are performing tests using either [employer] or [employer] systems and is limited to laboratories that meet the CLIA requirements to perform high and moderate complexity tests. The Xpert Xpress SARS-CoV-2/Flu/RSV Plus is only for use under the Food and Drug Administration's Emergency Use Authorization. Results are for the simultaneous detection and differentiation of SARS-CoV-2, influenza A, influenza B and RSV nucleic acids in clinical specimens. SARS-CoV-2, influenza A, influenza B and RSV RNA identified by this test are generally detectable in upper respiratory samples during the acute phase of infection. Positive results are indicative of the presence of the identified virus, but do not rule out bacterial infection or co-infection with other pathogens not detected by this test. Clinical correlation with patient history and other diagnostic information is necessary to determine patient infection status. The agent detected may not be the definite cause of disease. Negative results do not preclude SARS-CoV-2, influenza A, influenza B and RSV infection and should not be used as the sole basis for treatment or other patient management decisions. Negative results must be combined with clinical observations, patient history and epidemiological information. An Invalid result may occur with specimen-associated inhibition unable to be resolved with specimen repeat. Fact Sheet for Healthcare Providers: https://www.fda.gov/medi a/470799/download Fact Sheet for Patients: https://www.fda.gov/medi a/999542/download [facility] Comment on above: Performed By: #### C CONY HURLEY, 3016-3, 3024-7 #### [facility] ([id number]) [address], [address] [place] [address] Troponin I.cardiac High sens itivity method [Mass/Vol]on 10-13-2024 1 HOUR TROP I, HIGH SENSITIVITY 25 ng/L High <16 [facility] Comment on above: Result Comment: Elevations of hs-Troponin may be due to causes other than myocardial ischemia. Recommend serial hs-Troponin testing be performed. For the initial evaluation and management of chest pain patients, refer to the algorithms linked below. Emergency Patient: [email or web address] Inpatient: [email or web address] Performed By: #### C CONY HURLEY, 6-3, 3023-7 #### [facility] ([id number]) [address], [address] [place] [address] TROPONIN I, HIGH SENSITIVITY 24 ng/L High <16 [facility] Comment on above: Result Comment: Elevations of hs-Troponin may be due to causes other than myocardial ischemia. Recommend serial hs-Troponin testing be performed. For the initial evaluation and management of chest pain patients, refer to the algorithms linked below. Emergency Patient: [email or web address] Inpatient: [email or web address] &[email or web address] Performed By: #### C CONY HURLEY, 3016-3, 3024-7 #### [facility] ([id number]) [address], [address] [place] [address] XR ANKLE LT MIN 3 VWSon 10-01 XR ANKLE LT MIN 3 VWS XR ANKLE LT MIN 3 VWS XR ANKLE LT MIN 3 VWS HISTORY: L ankle pain COMPARISON: None available. IMPRESSION: 1. No acute fracture or dislocation. 2. No large joint effusion. 3. Talar dome is preserved. 4. Ankle mortise is congruent. 5. Circumferential Soft tissue edema. Finalized by Daniel Finch on 10/13/2024 4:00 PM Normal [facility] XR CHEST 1 VWon 10-13-2024 XR CHEST 1 VW XR CHEST 1 VW History: cough Exam/Technique: Single AP view of the chest was obtained Comparison: 09/09/2024 Findings: Left arm PICC tip is in the SVC. Cardiac size stable. There is right middle and lower lobes opacity possibly pneumonia versus atelectasis. There is possibly small right pleural effusion. There is no pneumothorax. IMPRESSION: Stable airspace disease of the right middle and lower lobe possibly atelectasis versus consolidation with possibly small pleural effusion Finalized by Raul Gonzales MD on 10/13/2024 4:05 PM Normal [facility] XR KNEE LT 3 VWSon XR KNEE LT 3 VWS XR KNEE LT 3 VWS CLINICAL HISTORY: Lower leg pain no known injury Comparison: None Views: 3 views FINDINGS: * Prosthesis in satisfactory alignment. No acute fracture dislocation erosion or periostitis. Soft tissues unremarkable. IMPRESSION: * Unremarkable 3 view left knee Finalized by Audie Rae MD on 10/13/2024 3:59 PM Normal [facility] aPTT Coag (PPP) [Time]on aPTT Coag (Bld) [Time] 35 s Normal 26-37 [facility] Comment on above: Result Comment: NEW REFERENCE RANGE Performed By: #### C BCA, CMP, 3016-3, 3024-7 #### [facility] ([id number]) [address] [place] [address] Brain Natriuretic Peptideon 10-03-2024 Natriuretic peptide B (Bld) [Mass/Vol] 489 pg/mL High 0 - 300 pg/mL [facility] Comment on above: An age-independent c utoff point of 300 pg/ml has a 98% negative predictive value excluding acute heart failure. CBC with Auto Differentialon 10-03-2024 Basophils (Bld) [#/Vol] 0.00 10*3/uL [facility] Basophils/100 WBC (Bld) 0 % 0 - 2 % B on [facility] Eosinophils (Bld) [#/Vol] 0.20 10*3/uL [facility] Eosinophils/100 WBC (Bld) 4 % 0 - 4 % [facility] Erythrocyte distribution width (RBC) [Ratio] 14.0 % 11.5 - 14.9 % [facility] Hematocrit (Bld) [Volume fraction] 26.0 % Low 36 - 46 % [facility] Hemoglobin (Bld) [Mass/Vol] 8.6 g/dL Low 12.0 - 16.0 g/dL [facility] Interpretation and review of laboratory results Abnormal [facility] Lymphocytes/100 WBC (Bld) 30 % 24 - 44 % [facility] Lymphocytes/100 WBC (Bld) 1.80 % [facility] MCH (RBC) [Entitic mass] 31.0 pg 26 - 34 pg [facility] MCHC (RBC) [Mass/Vol] 33.1 g/dL 31 - 3 7 g/dL [facility] MCV (RBC) [Entitic vol] 93.5 fL 80 - 100 fL [facility] Monocytes/100 WBC (Bld) 8 % High 1 - 7 % B on [facility] Monocytes/100 WBC (Bld) 0.50 % B on [facility] Neutrophils/100 WBC (Bld) 58 % 36 - 66 % [facility] Platelet mean volume (Bld) [Entitic vol] 8.9 fL 6.0 - 12.0 fL [facility] Platelets (Bld) [#/Vol] 187 10*3/uL [facility] RBC (Bld) [#/Vol] 2.78 10*6/uL Low 4.0 - 5.2 m/uL [facility] Segmented neutrophils/100 WBC (Bld) 3.50 % [facility] WBC other (Bld) [#/Vol] 6.0 B on [facility] Comprehensive Metabolic Pane ti 10-03-2024 Albumin [Mass/Vol] 2.3 g/dL Low 3.5 - 5.2 g/dL [facility] ALP [Catalytic activity/Vol] 140 U/L High 35 - 104 U/L [facility] ALT [Catalytic activity/Vol] 23 U/L 10 - 35 U/L [facility] Anion gap [Moles/Vol] 8 mmol/L Low 9 - 16 mmol/L [facility] AST [Catalytic activity/Vol] 25 U/L 10 - 35 U/L [facility] Bilirubin [Mass/Vol] 0.2 mg/dL 0.0 - 1 .2 mg/dL [facility] Calcium [Mass/Vol] 8.6 mg/dL 8.6 - 10. 4 mg/dL [facility] Chloride [Moles/Vol] 103 mmol/L 98 - 10 7 mmol/L [facility] CO2 [Moles/Vol] 24 mmol/L 20 - 31 mmol/L [facility] Creatinine [Mass/Vol] 0.5 mg/dL Low 0.7 - 1.2 mg/dL [facility] Est, Glom Filt Rate 90 - PINF [facility] Comment on above: These results are not intended for use in patients <18 years of age. eGFR results are calculated without a race factor using the 2020 CKD-EPI equation. Careful clinical correlation is recommended, particularly when comparing to results calculated using previous equations. The CKD-EPI equation is less accurate in patients with extremes of muscle mass, extra-renal metabolism of creatine, excessive creatine ingestion, or following therapy that affects renal tubular secretion. Glucose [Mass/Vol] 119 mg/dL High 74 - 99 mg/dL [facility] Potassium [Moles/Vol] 4.0 mmol/L 3.7 - 5.3 mmol/L [facility] Protein [Mass/Vol] 5.4 g/dL Low 6.6 - 8.7 g/dL [facility] Sodium [Moles/Vol] 135 mmol/L Low 136 - 145 mmol/L [facility] Urea nitrogen [Mass/Vol] 37 mg/dL High 8 - 23 mg/dL [facility] Magnesiumon 10-03-2024 Magnesium [Mass/Vol] 1.9 mg/dL 1.6 - 2 .4 mg/dL [facility] No Panel Informationon 10-03 Interpretation and review of laboratory results Abnormal [facility] Phosphoruson 10-03-2024 Phosphate [Mass/Vol] 3.5 mg/dL 2.5 - 4 .5 mg/dL [facility] Triglycerideon 10-03-2024 Triglyceride [Mass/Vol] 95 mg/dL 0 - 149 mg/dL [facility] Comment on above: Triglyceride Guidelines: <150 Desirable 150-199 Borderline 200-499 High >499 Very high Based on AHA Guidelines for fasting triglyceride, May 2012. Basic Metabolic Panelon 09-02 Anion gap [Moles/Vol] 7 mmol/L Low 9 - 16 mmol/L [facility] Calcium [Mass/Vol] 8.6 mg/dL 8.6 - 10. 4 mg/dL [facility] Chloride [Moles/Vol] 106 mmol/L 98 - 10 7 mmol/L [facility] CO2 [Moles/Vol] 26 mmol/L 20 - 31 mmol/L [facility] Creatinine [Mass/Vol] 0.3 mg/dL Low 0.7 - 1.2 mg/dL [facility] Est, Glom Filt Rate - PINF [facility] Comment on above: These results are not intended for use in patients <18 years of age. eGFR results are calculated without a race factor using the 2020 CKD-EPI equation. Careful clinical correlation is recommended, particularly when comparing to results calculated using previous equations. The CKD-EPI equation is less accurate in patients with extremes of muscle mass, extra-renal metabolism of creatine, excessive creatine ingestion, or following therapy that affects renal tubular secretion. Glucose [Mass/Vol] 104 mg/dL High 74 - 99 mg/dL [facility] Interpretation and review of laboratory results Abnormal [facility] Potassium [Moles/Vol] 3.8 mmol/L 3.7 - 5.3 mmol/L [facility] Sodium [Moles/Vol] 139 mmol/L 136 - 145 mmol/L [facility] Urea nitrogen [Mass/Vol] 34 mg/dL High 8 - 23 mg/dL [facility] IR FLUOROSCOPY LESS THAN 1 H OUR 09-30-2024 IR FLUOROSCOPY LESS THAN 1 HOUR EXAMINATION: SPOT FLUOROSCOPIC IMAGES 09/29/2024 2:00 pm TECHNIQUE: FLUOROSCOPY DOSE AND TYPE: Radiation Exposure Index: Kerma mGy, 0.63 COMPARISON: None HISTORY: ORDERING SYSTEM PROVIDED HISTORY: Inadequate oral intake TECHNOLOGIST PROVIDED HISTORY: Inadequate oral intake Intraprocedural imaging. FINDINGS: Limited fluoroscopy was performed for potential gastrostomy tube placement. The patient could not tolerate placement of a nasogastric catheter for stomach insufflation. Under fluoroscopy the catheter was advanced to the upper esophagus only. The procedure was terminated at the patient's request. Fluoroscopic guided gastrostomy may not be possible due to presence of an ostomy in the left mid to upper abdomen. If necessary, surgical placement may be required. IMPRESSION: Limited fluoroscopy, as above. Findings were discussed with the patient's caregiver at 3:30 p.m. on 09/29/2024. Interpreted by: Nick Garza MD Signed by: Nick Garza MD 09/30/24 Final result Normal [facility] Limited fluoroscopy, as above. Findings were discussed with the patient's caregiver at 3:30 p.m. on 09/29/2024. [facility] RIS CONSOLIDATED EXAMINATION: SPOT FLUOROSCOPIC IMAGES 09/29/2024 2:00 pm TECHNIQUE: FLUOROSCOPY DOSE AND TYPE: Radiation Exposure Index: Kerma mGy, 0.63 COMPARISON: None HISTORY: ORDERING SYSTEM PROVIDED HISTORY: Inadequate oral intake TECHNOLOGIST PROVIDED HISTORY: Inadequate oral intake Intraprocedural imaging. FINDINGS: Limited fluoroscopy was performed for potential gastrostomy tube placement. The patient could not tolerate placement of a nasogastric catheter for stomach insufflation. Under fluoroscopy the catheter was advanced to the upper esophagus only. The procedure was terminated at the patient's request. Fluoroscopic guided gastrostomy may not be possible due to presence of an ostomy in the left mid to upper abdomen. If necessary, surgical placement may be required. [facility] RIS CONSOLIDATED Nick Garza MD - 09/30/2024 EXAMINATION: SPOT FLUOROSCOPIC IMAGES 09/29/2024 2:00 pm TECHNIQUE: FLUOROSCOPY DOSE AND TYPE: Radiation Exposure Index: Kerma mGy, 0.63 COMPARISON: None HISTORY: ORDERING SYSTEM PROVIDED HISTORY: Inadequate oral intake TECHNOLOGIST PROVIDED HISTORY: Inadequate oral intake Intraprocedural imaging. FINDINGS: Limited fluoroscopy was performed for potential gastrostomy tube placement. The patient could not tolerate placement of a nasogastric catheter for stomach insufflation. Under fluoroscopy the catheter was advanced to the upper esophagus only. The procedure was terminated at the patient's request. Fluoroscopic guided gastrostomy may not be possible due to presence of an ostomy in the left mid to upper abdomen. If necessary, surgical placement may be required. IMPRESSION: Limited fluoroscopy, as above. Findings were discussed with the patient's caregiver at 3:30 p.m. on 09/29/2024. [facility] IR FLUOROSCOPY LESS THAN 1 H OUROrdered By: Nick Garza on 09-30-2024 [facility] Work Phone: Magnesiumon 09-30-2024 Magnesium [Mass/Vol] 1.9 mg/dL 1.6 - 2 .4 mg/dL [facility] No Panel Informationon 09-30 [facility] Phosphoruson 09-30-2024 Phosphate [Mass/Vol] 3.7 mg/dL 2.5 - 4 .5 mg/dL [facility] CBC with Auto Differentialon 09-29-2024 Basophils (Bld) [#/Vol] 0.00 10*3/uL [facility] Basophils/100 WBC (Bld) 1 % 0 - 2 % B on [facility] Eosinophils (Bld) [#/Vol] 0.20 10*3/uL [facility] Eosinophils/100 WBC (Bld) 4 % 0 - 4 % [facility] Erythrocyte distribution width (RBC) [Ratio] 14.3 % 11.5 - 14.9 % [facility] Hematocrit (Bld) [Volume fraction] 24.8 % Low 36 - 46 % [facility] Hemoglobin (Bld) [Mass/Vol] 8.0 g/dL Low 12.0 - 16.0 g/dL [facility] Interpretation and review of laboratory results Abnormal [facility] Lymphocytes/100 WBC (Bld) 34 % 24 - 44 % [facility] Lymphocytes/100 WBC (Bld) 1.90 % [facility] MCH (RBC) [Entitic mass] 30.4 pg 26 - 34 pg [facility] MCHC (RBC) [Mass/Vol] 32.1 g/dL 31 - 3 7 g/dL [facility] MCV (RBC) [Entitic vol] 94.6 fL 80 - 100 fL [facility] Monocytes/100 WBC (Bld) 11 % High 1 - 7 % B on [facility] Monocytes/100 WBC (Bld) 0.60 % B on [facility] Neutrophils/100 WBC (Bld) 50 % 36 - 66 % [facility] Platelet mean volume (Bld) [Entitic vol] 9.1 fL 6.0 - 12.0 fL [facility] Platelets (Bld) [#/Vol] 231 10*3/uL [facility] RBC (Bld) [#/Vol] 2.63 10*6/uL Low 4.0 - 5.2 m/uL [facility] Segmented neutrophils/100 WBC (Bld) 2.90 % [facility] WBC other (Bld) [#/Vol] 5.7 B on [facility] IR FLUOROSCOPY LESS THAN 1 H OURon 09-29-2024 Radiology Study observation (narrative) [facility] Protime-INRon 09-29-2024 INR Coag (PPP) [Relative time] 1.1 {INR} [facility] Comment on above: Therapeutic Range: Moderate Anticoagulant Intensity: INR = 2.0-3.0 High Anticoagulant Intensity: INR = 2.5-3.5 Interpretation and review of laboratory results Abnormal [facility] PT Coag (PPP) [Time] 15.1 s High [facility] Basic Metabolic Panelon 09-01 Anion gap [Moles/Vol] 7 mmol/L Low 9 - 16 mmol/L [facility] Calcium [Mass/Vol] 8.5 mg/dL Low 8.6 - 10. 4 mg/dL [facility] Chloride [Moles/Vol] 106 mmol/L 98 - 10 7 mmol/L [facility] CO2 [Moles/Vol] 25 mmol/L 20 - 31 mmol/L [facility] Creatinine [Mass/Vol] 0.6 mg/dL Low 0.7 - 1.2 mg/dL [facility] Est, Glom Filt Rate 86 - PINF [facility] Comment on above: These results are not intended for use in patients <18 years of age. eGFR results are calculated without a race factor using the 2020 CKD-EPI equation. Careful clinical correlation is recommended, particularly when comparing to results calculated using previous equations. The CKD-EPI equation is less accurate in patients with extremes of muscle mass, extra-renal metabolism of creatine, excessive creatine ingestion, or following therapy that affects renal tubular secretion. Glucose [Mass/Vol] 128 mg/dL High 74 - 99 mg/dL [facility] Interpretation and review of laboratory results Abnormal [facility] Potassium [Moles/Vol] 3.9 mmol/L 3.7 - 5.3 mmol/L [facility] Sodium [Moles/Vol] 138 mmol/L 136 - 145 mmol/L [facility] Urea nitrogen [Mass/Vol] 37 mg/dL High 8 - 23 mg/dL [facility] Magnesiumon 09-28-2024 Magnesium [Mass/Vol] 1.9 mg/dL 1.6 - 2 .4 mg/dL [facility] No Panel Informationon 09-28 [facility] Phosphoruson 09-28-2024 Phosphate [Mass/Vol] 3.8 mg/dL 2.5 - 4 .5 mg/dL [facility] Brain Natriuretic Peptideon 09-26-2024 Natriuretic peptide B (Bld) [Mass/Vol] 1040 pg/mL High 0 - 300 pg/mL [facility] Comment on above: An age-independent c utoff point of 300 pg/ml has a 98% negative predictive value excluding acute heart failure. CBC with Auto Differentialon 09-26-2024 Basophils (Bld) [#/Vol] 0.00 10*3/uL [facility] Basophils/100 WBC (Bld) 1 % 0 - 2 % B on [facility] Eosinophils (Bld) [#/Vol] 0.10 10*3/uL [facility] Eosinophils/100 WBC (Bld) 3 % 0 - 4 % [facility] Erythrocyte distribution width (RBC) [Ratio] 14.8 % 11.5 - 14.9 % [facility] Hematocrit (Bld) [Volume fraction] 22.3 % Low 36 - 46 % [facility] Hemoglobin (Bld) [Mass/Vol] 7.4 g/dL Low 12.0 - 16.0 g/dL [facility] Interpretation and review of laboratory results Abnormal [facility] Lymphocytes/100 WBC (Bld) 36 % 24 - 44 % [facility] Lymphocytes/100 WBC (Bld) 1.80 % [facility] MCH (RBC) [Entitic mass] 31.3 pg 26 - 34 pg [facility] MCHC (RBC) [Mass/Vol] 33.0 g/dL 31 - 3 7 g/dL [facility] MCV (RBC) [Entitic vol] 94.8 fL 80 - 100 fL [facility] Monocytes/100 WBC (Bld) 8 % High 1 - 7 % B on [facility] Monocytes/100 WBC (Bld) 0.40 % B on [facility] Neutrophils/100 WBC (Bld) 52 % 36 - 66 % [facility] Platelet mean volume (Bld) [Entitic vol] 9.2 fL 6.0 - 12.0 fL [facility] Platelets (Bld) [#/Vol] 184 10*3/uL [facility] RBC (Bld) [#/Vol] 2.35 10*6/uL Low 4.0 - 5.2 m/uL [facility] Segmented neutrophils/100 WBC (Bld) 2.60 % [facility] WBC other (Bld) [#/Vol] 5.0 B on [facility] Calcium, Ionizedon 01-27-202 5 Calcium.ionized (Bld) [Moles/Vol] 1.26 mmol/L 1.10 - 1.33 mmol/L [facility] Comprehensive Metabolic Pane ti 09-26-2024 Albumin [Mass/Vol] 2.3 g/dL Low 3.5 - 5.2 g/dL [facility] ALP [Catalytic activity/Vol] 130 U/L High 35 - 104 U/L [facility] ALT [Catalytic activity/Vol] 30 U/L 10 - 35 U/L [facility] Anion gap [Moles/Vol] 6 mmol/L Low 9 - 16 mmol/L [facility] AST [Catalytic activity/Vol] 22 U/L 10 - 35 U/L [facility] Bilirubin [Mass/Vol] mg/dL 0.0 - 1 .2 mg/dL [facility] Calcium [Mass/Vol] 8.6 mg/dL 8.6 - 10. 4 mg/dL [facility] Chloride [Moles/Vol] 104 mmol/L 98 - 10 7 mmol/L [facility] CO2 [Moles/Vol] 28 mmol/L 20 - 31 mmol/L [facility] Creatinine [Mass/Vol] 0.6 mg/dL Low 0.7 - 1.2 mg/dL [facility] Est, Glom Filt Rate 86 - PINF [facility] Comment on above: These results are not intended for use in patients <18 years of age. eGFR results are calculated without a race factor using the 2020 CKD-EPI equation. Careful clinical correlation is recommended, particularly when comparing to results calculated using previous equations. The CKD-EPI equation is less accurate in patients with extremes of muscle mass, extra-renal metabolism of creatine, excessive creatine ingestion, or following therapy that affects renal tubular secretion. Glucose [Mass/Vol] 114 mg/dL High 74 - 99 mg/dL [facility] Potassium [Moles/Vol] 4.2 mmol/L 3.7 - 5.3 mmol/L [facility] Protein [Mass/Vol] 4.8 g/dL Low 6.6 - 8.7 g/dL [facility] Sodium [Moles/Vol] 138 mmol/L 136 - 145 mmol/L [facility] Urea nitrogen [Mass/Vol] 47 mg/dL High 8 - 23 mg/dL [facility] Magnesiumon 09-26-2024 Magnesium [Mass/Vol] 2.1 mg/dL 1.6 - 2 .4 mg/dL [facility] No Panel Informationon 09-26 Interpretation and review of laboratory results Abnormal [facility] Phosphoruson 09-26-2024 Phosphate [Mass/Vol] 4.2 mg/dL 2.5 - 4 .5 mg/dL [facility] Triglycerideon 09-26-2024 Triglyceride [Mass/Vol] 74 mg/dL 0 - 149 mg/dL [facility] Comment on above: Triglyceride Guidelines: <150 Desirable 150-199 Borderline 200-499 High >499 Very high Based on AHA Guidelines for fasting triglyceride, May 2012. Basic Metabolic Panelon 09-01 Anion gap [Moles/Vol] 7 mmol/L Low 9 - 16 mmol/L [facility] Calcium [Mass/Vol] 8.8 mg/dL 8.6 - 10. 4 mg/dL [facility] Chloride [Moles/Vol] 108 mmol/L High 98 - 10 7 mmol/L [facility] CO2 [Moles/Vol] 30 mmol/L 20 - 31 mmol/L [facility] Creatinine [Mass/Vol] 0.6 mg/dL Low 0.7 - 1.2 mg/dL [facility] Est, Glom Filt Rate 86 - PINF [facility] Comment on above: These results are not intended for use in patients <18 years of age. eGFR results are calculated without a race factor using the 2020 CKD-EPI equation. Careful clinical correlation is recommended, particularly when comparing to results calculated using previous equations. The CKD-EPI equation is less accurate in patients with extremes of muscle mass, extra-renal metabolism of creatine, excessive creatine ingestion, or following therapy that affects renal tubular secretion. Glucose [Mass/Vol] 104 mg/dL High 74 - 99 mg/dL [facility] Interpretation and review of laboratory results Abnormal [facility] Potassium [Moles/Vol] 4.3 mmol/L 3.7 - 5.3 mmol/L [facility] Sodium [Moles/Vol] 145 mmol/L 136 - 145 mmol/L [facility] Urea nitrogen [Mass/Vol] 43 mg/dL High 8 - 23 mg/dL [facility] Magnesiumon 09-23-2024 Magnesium [Mass/Vol] 2.1 mg/dL 1.6 - 2 .4 mg/dL [facility] No Panel Informationon 09-23 [facility] Phosphoruson 09-23-2024 Phosphate [Mass/Vol] 4.3 mg/dL 2.5 - 4 .5 mg/dL [facility] CBC with Auto Differentialon 09-22-2024 Basophils (Bld) [#/Vol] 0.00 10*3/uL [facility] Basophils/100 WBC (Bld) 1 % 0 - 2 % B on [facility] Eosinophils (Bld) [#/Vol] 0.10 10*3/uL [facility] Eosinophils/100 WBC (Bld) 1 % 0 - 4 % [facility] Erythrocyte distribution width (RBC) [Ratio] 15.1 % High 11.5 - 14.9 % [facility] Hematocrit (Bld) [Volume fraction] 26.0 % Low 36 - 46 % [facility] Hemoglobin (Bld) [Mass/Vol] 8.8 g/dL Low 12.0 - 16.0 g/dL [facility] Interpretation and review of laboratory results Abnormal [facility] Lymphocytes/100 WBC (Bld) 32 % 24 - 44 % [facility] Lymphocytes/100 WBC (Bld) 1.80 % [facility] MCH (RBC) [Entitic mass] 32.5 pg 26 - 34 pg [facility] MCHC (RBC) [Mass/Vol] 33.8 g/dL 31 - 3 7 g/dL [facility] MCV (RBC) [Entitic vol] 96.4 fL 80 - 100 fL [facility] Monocytes/100 WBC (Bld) 9 % High 1 - 7 % B on [facility] Monocytes/100 WBC (Bld) 0.50 % B on [facility] Neutrophils/100 WBC (Bld) 57 % 36 - 66 % [facility] Platelet mean volume (Bld) [Entitic vol] 8.7 fL 6.0 - 12.0 fL [facility] Platelets (Bld) [#/Vol] 190 10*3/uL [facility] RBC (Bld) [#/Vol] 2.69 10*6/uL Low 4.0 - 5.2 m/uL [facility] Segmented neutrophils/100 WBC (Bld) 3.20 % [facility] WBC other (Bld) [#/Vol] 5.6 B on [facility] Basic Metabolic Panelon 09-01 Anion gap [Moles/Vol] 5 mmol/L Low 9 - 16 mmol/L [facility] Calcium [Mass/Vol] 8.6 mg/dL 8.6 - 10. 4 mg/dL [facility] Chloride [Moles/Vol] 103 mmol/L 98 - 10 7 mmol/L [facility] CO2 [Moles/Vol] 31 mmol/L 20 - 31 mmol/L [facility] Creatinine [Mass/Vol] 0.6 mg/dL Low 0.7 - 1.2 mg/dL [facility] Est, Glom Filt Rate 86 - PINF [facility] Comment on above: These results are not intended for use in patients <18 years of age. eGFR results are calculated without a race factor using the 2020 CKD-EPI equation. Careful clinical correlation is recommended, particularly when comparing to results calculated using previous equations. The CKD-EPI equation is less accurate in patients with extremes of muscle mass, extra-renal metabolism of creatine, excessive creatine ingestion, or following therapy that affects renal tubular secretion. Glucose [Mass/Vol] 111 mg/dL High 74 - 99 mg/dL [facility] Interpretation and review of laboratory results Abnormal [facility] Potassium [Moles/Vol] 4.2 mmol/L 3.7 - 5.3 mmol/L [facility] Sodium [Moles/Vol] 139 mmol/L 136 - 145 mmol/L [facility] Urea nitrogen [Mass/Vol] 42 mg/dL High 8 - 23 mg/dL [facility] Magnesiumon 09-21-2024 Magnesium [Mass/Vol] 2.1 mg/dL 1.6 - 2 .4 mg/dL [facility] No Panel Informationon 09-21 [facility] Phosphoruson 09-21-2024 Phosphate [Mass/Vol] 4.5 mg/dL 2.5 - 4 .5 mg/dL [facility] Portable XR Chest AP single viewon 09-21-2024 Small right pleural effusion with right basilar airspace disease which could reflect atelectasis and/or pneumonia [facility] RIS CONSOLIDATED EXAMINATION: ONE XRAY VIEW OF THE CHEST 09/21/2024 3:25 pm COMPARISON: None. HISTORY: ORDERING SYSTEM PROVIDED HISTORY: dyspena TECHNOLOGIST PROVIDED HISTORY: Reason for Exam:->dyspena Portable?->Yes Height:152.4cm Weight:67.132kg Reason for Exam: dyspnea FINDINGS: Left-sided PICC line with tip in the superior vena cava. The patient is rotated. With that said the cardiomediastinal silhouette appears normal. Small right pleural effusion with right basilar airspace disease. No pneumothorax [facility] RIS CONSOLIDATED Jamar Murray M D - 09/21/2024 EXAMINATION: ONE XRAY VIEW OF THE CHEST 09/21/2024 3:25 pm COMPARISON: None. HISTORY: ORDERING SYSTEM PROVIDED HISTORY: dyspena TECHNOLOGIST PROVIDED HISTORY: Reason for Exam:->dyspena Portable?->Yes Height:152.4cm Weight:67.132kg Reason for Exam: dyspnea FINDINGS: Left-sided PICC line with tip in the superior vena cava. The patient is rotated. With that said the cardiomediastinal silhouette appears normal. Small right pleural effusion with right basilar airspace disease. No pneumothorax IMPRESSION: Small right pleural effusion with right basilar airspace disease which could reflect atelectasis and/or pneumonia [facility] Radiology Study observation (narrative) [facility] Portable XR Chest AP single viewOrdered By: Jamar Murray on 09-21-2024 [facility] Work Phone: XR CHEST PORTABLEon 09-21-19 XR CHEST PORTABLE EXAMINATION: ONE XRAY VIEW OF THE CHEST 09/21/2024 3:25 pm COMPARISON: None. HISTORY: ORDERING SYSTEM PROVIDED HISTORY: dyspena TECHNOLOGIST PROVIDED HISTORY: Reason for Exam:->dyspena Portable?->Yes Height:152.4cm Weight:67.132kg Reason for Exam: dyspnea FINDINGS: Left-sided PICC line with tip in the superior vena cava. The patient is rotated. With that said the cardiomediastinal silhouette appears normal. Small right pleural effusion with right basilar airspace disease. No pneumothorax IMPRESSION: Small right pleural effusion with right basilar airspace disease which could reflect atelectasis and/or pneumonia Interpreted by: Jamar Murray MD Signed by: Jamar Murray MD 09/21/24 Final result Normal [facility] CBC with Auto Differentialon 09-19-2024 Basophils (Bld) [#/Vol] 0.00 10*3/uL [facility] Basophils/100 WBC (Bld) 0 % 0 - 2 % B on [facility] Eosinophils (Bld) [#/Vol] 0.06 10*3/uL [facility] Eosinophils/100 WBC (Bld) 1 % 0 - 4 % [facility] Erythrocyte distribution width (RBC) [Ratio] 15.6 % High 11.5 - 14.9 % [facility] Hematocrit (Bld) [Volume fraction] 23.7 % Low 36 - 46 % [facility] Hemoglobin (Bld) [Mass/Vol] 7.9 g/dL Low 12.0 - 16.0 g/dL [facility] Interpretation and review of laboratory results Abnormal [facility] Lymphocytes/100 WBC (Bld) 37 % 24 - 44 % [facility] Lymphocytes/100 WBC (Bld) 2.11 % [facility] MCH (RBC) [Entitic mass] 32.2 pg 26 - 34 pg [facility] MCHC (RBC) [Mass/Vol] 33.2 g/dL 31 - 3 7 g/dL [facility] MCV (RBC) [Entitic vol] 96.9 fL 80 - 100 fL [facility] Monocytes/100 WBC (Bld) 10 % High 1 - 7 % [facility] on [facility] Monocytes/100 WBC (Bld) 0.57 % B on [facility] Morphology Tahir (Bld) [Interp] ANISOCYTOSIS PRESENT [facility] Morphology Tahir (Bld) [Interp] 1+ POLYCHROMASIA [facility] Neutrophils/100 WBC (Bld) 52 % 36 - 66 % [facility] Platelet mean volume (Bld) [Entitic vol] 8.3 fL 6.0 - 12.0 fL [facility] Platelets (Bld) [#/Vol] 187 10*3/uL [facility] RBC (Bld) [#/Vol] 2.45 10*6/uL Low 4.0 - 5.2 m/uL [facility] Segmented neutrophils/100 WBC (Bld) 2.96 % [facility] WBC other (Bld) [#/Vol] 5.7 B on [facility] Comprehensive Metabolic Pane ti 09-19-2024 Albumin [Mass/Vol] 2.0 g/dL Low 3.5 - 5.2 g/dL [facility] ALP [Catalytic activity/Vol] 109 U/L High 35 - 104 U/L [facility] ALT [Catalytic activity/Vol] 28 U/L 10 - 35 U/L [facility] Anion gap [Moles/Vol] 7 mmol/L Low 9 - 16 mmol/L [facility] AST [Catalytic activity/Vol] 26 U/L 10 - 35 U/L [facility] Bilirubin [Mass/Vol] mg/dL 0.0 - 1 .2 mg/dL [facility] Calcium [Mass/Vol] 8.3 mg/dL Low 8.6 - 10. 4 mg/dL [facility] Chloride [Moles/Vol] 103 mmol/L 98 - 10 7 mmol/L [facility] CO2 [Moles/Vol] 27 mmol/L 20 - 31 mmol/L [facility] Creatinine [Mass/Vol] 0.5 mg/dL Low 0.7 - 1.2 mg/dL [facility] Est, Glom Filt Rate 90 - PINF [facility] Comment on above: These results are not intended for use in patients <18 years of age. eGFR results are calculated without a race factor using the 2020 CKD-EPI equation. Careful clinical correlation is recommended, particularly when comparing to results calculated using previous equations. The CKD-EPI equation is less accurate in patients with extremes of muscle mass, extra-renal metabolism of creatine, excessive creatine ingestion, or following therapy that affects renal tubular secretion. Glucose [Mass/Vol] 117 mg/dL High 74 - 99 mg/dL [facility] Potassium [Moles/Vol] 3.9 mmol/L 3.7 - 5.3 mmol/L [facility] Protein [Mass/Vol] 4.4 g/dL Low 6.6 - 8.7 g/dL [facility] Sodium [Moles/Vol] 137 mmol/L 136 - 145 mmol/L [facility] Urea nitrogen [Mass/Vol] 32 mg/dL High 8 - 23 mg/dL [facility] Magnesiumon 09-19-2024 Magnesium [Mass/Vol] 2.1 mg/dL 1.6 - 2 .4 mg/dL [facility] No Panel Informationon 09-19 Interpretation and review of laboratory results Abnormal [facility] Phosphoruson 09-19-2024 Phosphate [Mass/Vol] 4.7 mg/dL High 2.5 - 4 .5 mg/dL [facility] Triglycerideon 09-19-2024 Triglyceride [Mass/Vol] 71 mg/dL 0 - 149 mg/dL [facility] Comment on above: Triglyceride Guidelines: <150 Desirable 150-199 Borderline 200-499 High >499 Very high Based on AHA Guidelines for fasting triglyceride, May 2012. Brain Natriuretic Peptideon 09-18-2024 Natriuretic peptide B (Bld) [Mass/Vol] 1379 pg/mL High 0 - 300 pg/mL [facility] Comment on above: An age-independent c utoff point of 300 pg/ml has a 98% negative predictive value excluding acute heart failure. No Panel Informationon 09-18 Interpretation and review of laboratory results Abnormal [facility] Troponinon 09-18-2024 Troponin I.cardiac High sensitivity method [Mass/Vol] 33 ng/L High 0 - 14 ng/L [facility] Comment on above: High Sensitivity Tro ponin values cannot be compared with other Troponin methodologies. CBC with Auto Differentialon 09-17-2024 Basophils (Bld) [#/Vol] 0.00 10*3/uL [facility] Basophils/100 WBC (Bld) 0 % 0 - 2 % B on [facility] Eosinophils (Bld) [#/Vol] 0.06 10*3/uL [facility] Eosinophils/100 WBC (Bld) 1 % 0 - 4 % [facility] Erythrocyte distribution width (RBC) [Ratio] 15.0 % High 11.5 - 14.9 % [facility] Hematocrit (Bld) [Volume fraction] 23.4 % Low 36 - 46 % [facility] Hemoglobin (Bld) [Mass/Vol] 7.8 g/dL Low 12.0 - 16.0 g/dL [facility] Interpretation and review of laboratory results Abnormal [facility] Lymphocytes/100 WBC (Bld) 25 % 24 - 44 % [facility] Lymphocytes/100 WBC (Bld) 1.58 % [facility] MCH (RBC) [Entitic mass] 31.6 pg 26 - 34 pg [facility] MCHC (RBC) [Mass/Vol] 33.4 g/dL 31 - 3 7 g/dL [facility] MCV (RBC) [Entitic vol] 94.5 fL 80 - 100 fL [facility] Monocytes/100 WBC (Bld) 8 % High 1 - 7 % B on [facility] Monocytes/100 WBC (Bld) 0.50 % B on [facility] Morphology Tahir (Bld) [Interp] ANISOCYTOSIS PRESENT [facility] Morphology Tahir (Bld) [Interp] 1+ POLYCHROMASIA [facility] Neutrophils/100 WBC (Bld) 66 % 36 - 66 % [facility] Platelet mean volume (Bld) [Entitic vol] 8.3 fL 6.0 - 12.0 fL [facility] Platelets (Bld) [#/Vol] 179 10*3/uL [facility] RBC (Bld) [#/Vol] 2.48 10*6/uL Low 4.0 - 5.2 m/uL [facility] Segmented neutrophils/100 WBC (Bld) 4.16 % [facility] WBC other (Bld) [#/Vol] 6.3 B on [facility] CT CHEST WO CONTRASTon 09-17 CT CHEST WO CONTRAST EXAMINATION: CT OF THE CHEST WITHOUT CONTRAST 09/17/2024 4:16 pm TECHNIQUE: CT of the chest was performed without the administration of intravenous contrast. Multiplanar reformatted images are provided for review. Automated exposure control, iterative reconstruction, and/or weight based adjustment of the mA/kV was utilized to reduce the radiation dose to as low as reasonably achievable. COMPARISON: None. HISTORY: ORDERING SYSTEM PROVIDED HISTORY: Breast pain AND hypersensitivity TECHNOLOGIST PROVIDED HISTORY: Reason for Exam:->Breast pain AND hypersensitivity What is the patient's sedation requirement?->No Sedation Height:152.4cm Weight:63.957kg Reason for Exam: rt side breast pain, bilat hypersensitivity FINDINGS: Lines and tubes: Left PICC line with tip in SVC. Mediastinum and Hilum: No enlarged lymph nodes Heart and Vasculature: Mild coronary calcification. Trace pericardial effusion. Pleura: Small bilateral pleural effusions, right greater than left. Upper abdomen: Unremarkable Lungs and airways: Bilateral lower lobe atelectasis. The central airways are patent. Bones/soft tissue: No destructive lesion IMPRESSION: 1. Small bilateral pleural effusions with atelectasis. Interpreted by: Benny Weaver MD Signed by: Benny Weaver MD 09/17/24 Final result Normal [facility] CT Chest WO contraston 09-17 1. Small bilateral pleural effusions with atelectasis. MHPN RIS CONSOLIDATED EXAMINATION: CT OF THE CHEST WITHOUT CONTRAST 09/17/2024 4:16 pm TECHNIQUE: CT of the chest was performed without the administration of intravenous contrast. Multiplanar reformatted images are provided for review. Automated exposure control, iterative reconstruction, and/or weight based adjustment of the mA/kV was utilized to reduce the radiation dose to as low as reasonably achievable. COMPARISON: None. HISTORY: ORDERING SYSTEM PROVIDED HISTORY: Breast pain & hypersensitivity TECHNOLOGIST PROVIDED HISTORY: Reason for Exam:->Breast pain & hypersensitivity What is the patient's sedation requirement?->No Sedation Height:152.4cm Weight:63.957kg Reason for Exam: rt side breast pain, bilat hypersensitivity FINDINGS: Lines and tubes: Left PICC line with tip in SVC. Mediastinum and Hilum: No enlarged lymph nodes Heart and Vasculature: Mild coronary calcification. Trace pericardial effusion. Pleura: Small bilateral pleural effusions, right greater than left. Upper abdomen: Unremarkable Lungs and airways: Bilateral lower lobe atelectasis. The central airways are patent. Bones/soft tissue: No destructive lesion MHPN Benny Peña MD - 09/17/2024 EXAMINATION: CT OF THE CHEST WITHOUT CONTRAST 09/17/2024 4:16 pm TECHNIQUE: CT of the chest was performed without the administration of intravenous contrast. Multiplanar reformatted images are provided for review. Automated exposure control, iterative reconstruction, and/or weight based adjustment of the mA/kV was utilized to reduce the radiation dose to as low as reasonably achievable. COMPARISON: None. HISTORY: ORDERING SYSTEM PROVIDED HISTORY: Breast pain & hypersensitivity TECHNOLOGIST PROVIDED HISTORY: Reason for Exam:->Breast pain & hypersensitivity What is the patient's sedation requirement?->No Sedation Height:152.4cm Weight:63.957kg Reason for Exam: rt side breast pain, bilat hypersensitivity FINDINGS: Lines and tubes: Left PICC line with tip in SVC. Mediastinum and Hilum: No enlarged lymph nodes Heart and Vasculature: Mild coronary calcification. Trace pericardial effusion. Pleura: Small bilateral pleural effusions, right greater than left. Upper abdomen: Unremarkable Lungs and airways: Bilateral lower lobe atelectasis. The central airways are patent. Bones/soft tissue: No destructive lesion IMPRESSION: 1. Small bilateral pleural effusions with atelectasis. [facility] Radiology Study observation (narrative) [facility] CT Chest WO contrastOrdered By: Benny Weaver on 09-17-2024 [facility] Work Phone: Troponinon 09-17-2024 Interpretation and review of laboratory results Abnormal [facility] Troponin I.cardiac High sensitivity method [Mass/Vol] 32 ng/L High 0 - 14 ng/L [facility] Comment on above: High Sensitivity Tro ponin values cannot be compared with other Troponin methodologies. [facility] Basic Metabolic Panelon 08-31 Anion gap [Moles/Vol] 7 mmol/L Low 9 - 16 mmol/L [facility] Calcium [Mass/Vol] 7.9 mg/dL Low 8.6 - 10. 4 mg/dL [facility] Chloride [Moles/Vol] 105 mmol/L 98 - 10 7 mmol/L [facility] CO2 [Moles/Vol] 22 mmol/L 20 - 31 mmol/L [facility] Creatinine [Mass/Vol] 0.5 mg/dL Low 0.7 - 1.2 mg/dL [facility] Est, Glom Filt Rate 90 - PINF [facility] Comment on above: These results are not intended for use in patients <18 years of age. eGFR results are calculated without a race factor using the 2020 CKD-EPI equation. Careful clinical correlation is recommended, particularly when comparing to results calculated using previous equations. The CKD-EPI equation is less accurate in patients with extremes of muscle mass, extra-renal metabolism of creatine, excessive creatine ingestion, or following therapy that affects renal tubular secretion. Glucose [Mass/Vol] 120 mg/dL High 74 - 99 mg/dL [facility] Interpretation and review of laboratory results Abnormal [facility] Potassium [Moles/Vol] 4.2 mmol/L 3.7 - 5.3 mmol/L [facility] Sodium [Moles/Vol] 134 mmol/L Low 136 - 145 mmol/L [facility] Urea nitrogen [Mass/Vol] 28 mg/dL High 8 - 23 mg/dL [facility] Brain Natriuretic Peptideon 09-16-2024 Natriuretic peptide B (Bld) [Mass/Vol] 1211 pg/mL High 0 - 300 pg/mL [facility] Comment on above: An age-independent c utoff point of 300 pg/ml has a 98% negative predictive value excluding acute heart failure. CKon 09-16-2024 CK [Catalytic activity/Vol] 15 U/L Low 26 - 192 U/L [facility] Magnesiumon 09-16-2024 Magnesium [Mass/Vol] 1.9 mg/dL 1.6 - 2 .4 mg/dL [facility] No Panel Informationon 09-16 Interpretation and review of laboratory results Abnormal [facility] Phosphoruson 09-16-2024 Phosphate [Mass/Vol] 3.7 mg/dL 2.5 - 4 .5 mg/dL [facility] Troponinon 09-16-2024 Troponin I.cardiac High sensitivity method [Mass/Vol] 32 ng/L High 0 - 14 ng/L [facility] Comment on above: High Sensitivity Tro ponin values cannot be compared with other Troponin methodologies. CBC with Auto Differentialon 09-15-2024 Absolute Bands 0.68 [facility] Bands 12 % High 0 - 10 % [facility] Basophils (Bld) [#/Vol] 0.00 10*3/uL [facility] Basophils/100 WBC (Bld) 0 % 0 - 2 % B [facility] Eosinophils (Bld) [#/Vol] 0.06 10*3/uL [facility] Eosinophils/100 WBC (Bld) 1 % 0 - 4 % [facility] Erythrocyte distribution width (RBC) [Ratio] 14.5 % 11.5 - 14.9 % [facility] Hematocrit (Bld) [Volume fraction] 26.5 % Low 36 - 46 % [facility] Hemoglobin (Bld) [Mass/Vol] 8.9 g/dL Low 12.0 - 16.0 g/dL [facility] Interpretation and review of laboratory results Abnormal [facility] Lymphocytes/100 WBC (Bld) 24 % 24 - 44 % [facility] Lymphocytes/100 WBC (Bld) 1.37 % [facility] MCH (RBC) [Entitic mass] 31.7 pg 26 - 34 pg [facility] MCHC (RBC) [Mass/Vol] 33.8 g/dL 31 - 3 7 g/dL [facility] MCV (RBC) [Entitic vol] 93.7 fL 80 - 100 fL [facility] Monocytes/100 WBC (Bld) 6 % 1 - 7 % B on [facility] Monocytes/100 WBC (Bld) 0.34 % B on [facility] Morphology Tahir (Bld) [Interp] Normal [facility] Neutrophils/100 WBC (Bld) 57 % 36 - 66 % [facility] Platelet mean volume (Bld) [Entitic vol] 8.4 fL 6.0 - 12.0 fL [facility] Platelets (Bld) [#/Vol] 191 10*3/uL [facility] RBC (Bld) [#/Vol] 2.83 10*6/uL Low 4.0 - 5.2 m/uL [facility] Segmented neutrophils/100 WBC (Bld) 3.25 % [facility] WBC other (Bld) [#/Vol] 5.7 B on [facility] Basic Metabolic Panelon 08-31 Anion gap [Moles/Vol] 6 mmol/L Low 9 - 16 mmol/L [facility] Calcium [Mass/Vol] 8.0 mg/dL Low 8.6 - 10. 4 mg/dL [facility] Chloride [Moles/Vol] 102 mmol/L 98 - 10 7 mmol/L [facility] CO2 [Moles/Vol] 24 mmol/L 20 - 31 mmol/L [facility] Creatinine [Mass/Vol] 0.4 mg/dL Low 0.7 - 1.2 mg/dL [facility] Est, Glom Filt Rate - PINF [facility] Comment on above: These results are not intended for use in patients <18 years of age. eGFR results are calculated without a race factor using the 2020 CKD-EPI equation. Careful clinical correlation is recommended, particularly when comparing to results calculated using previous equations. The CKD-EPI equation is less accurate in patients with extremes of muscle mass, extra-renal metabolism of creatine, excessive creatine ingestion, or following therapy that affects renal tubular secretion. Glucose [Mass/Vol] 126 mg/dL High 74 - 99 mg/dL [facility] Interpretation and review of laboratory results Abnormal [facility] Potassium [Moles/Vol] 3.9 mmol/L 3.7 - 5.3 mmol/L [facility] Sodium [Moles/Vol] 132 mmol/L Low 136 - 145 mmol/L [facility] Urea nitrogen [Mass/Vol] 27 mg/dL High 8 - 23 mg/dL [facility] Magnesiumon 09-14-2024 Magnesium [Mass/Vol] 2.0 mg/dL 1.6 - 2 .4 mg/dL [facility] No Panel Informationon 09-14 [facility] Phosphoruson 09-14-2024 Phosphate [Mass/Vol] 3.6 mg/dL 2.5 - 4 .5 mg/dL [facility] CBC with Auto Differentialon 09-12-2024 Basophils (Bld) [#/Vol] 0.00 10*3/uL [facility] Basophils/100 WBC (Bld) 0 % 0 - 2 % B on [facility] Eosinophils (Bld) [#/Vol] 0.12 10*3/uL [facility] Eosinophils/100 WBC (Bld) 2 % 0 - 4 % [facility] Erythrocyte distribution width (RBC) [Ratio] 14.4 % 11.5 - 14.9 % [facility] Hematocrit (Bld) [Volume fraction] 23.7 % Low 36 - 46 % [facility] Hemoglobin (Bld) [Mass/Vol] 7.9 g/dL Low 12.0 - 16.0 g/dL [facility] Interpretation and review of laboratory results Abnormal [facility] Lymphocytes/100 WBC (Bld) 11 % Low 24 - 44 % [facility] Lymphocytes/100 WBC (Bld) 0.66 % Low [facility] MCH (RBC) [Entitic mass] 31.3 pg 26 - 34 pg [facility] MCHC (RBC) [Mass/Vol] 33.3 g/dL 31 - 3 7 g/dL [facility] MCV (RBC) [Entitic vol] 93.9 fL 80 - 100 fL [facility] Monocytes/100 WBC (Bld) 13 % High 1 - 7 % B on [facility] Monocytes/100 WBC (Bld) 0.78 % B on [facility] Morphology Tahir (Bld) [Interp] ANISOCYTOSIS PRESENT [facility] Morphology Tahir (Bld) [Interp] HYPOCHROMIA PRESENT [facility] Morphology Tahir (Bld) [Interp] FEW POLYCHROMASIA [facility] Neutrophils/100 WBC (Bld) 74 % High 36 - 66 % [facility] Platelet mean volume (Bld) [Entitic vol] 8.8 fL 6.0 - 12.0 fL [facility] Platelets (Bld) [#/Vol] 211 10*3/uL [facility] RBC (Bld) [#/Vol] 2.52 10*6/uL Low 4.0 - 5.2 m/uL [facility] Segmented neutrophils/100 WBC (Bld) 4.44 % [facility] WBC other (Bld) [#/Vol] 6.0 B on [facility] Calcium, Ionizedon Calcium.ionized (Bld) [Moles/Vol] 1.26 mmol/L 1.10 - 1.33 mmol/L [facility] Comprehensive Metabolic Pane ti 09-12-2024 Albumin [Mass/Vol] 1.7 g/dL Low 3.5 - 5.2 g/dL [facility] ALP [Catalytic activity/Vol] 97 U/L 35 - 104 U/L [facility] ALT [Catalytic activity/Vol] 52 U/L High 10 - 35 U/L [facility] Anion gap [Moles/Vol] 8 mmol/L Low 9 - 16 mmol/L [facility] AST [Catalytic activity/Vol] 36 U/L High 10 - 35 U/L [facility] Bilirubin [Mass/Vol] mg/dL 0.0 - 1 .2 mg/dL [facility] Calcium [Mass/Vol] 8.2 mg/dL Low 8.6 - 10. 4 mg/dL [facility] Chloride [Moles/Vol] 105 mmol/L 98 - 10 7 mmol/L [facility] CO2 [Moles/Vol] 23 mmol/L 20 - 31 mmol/L [facility] Creatinine [Mass/Vol] 0.5 mg/dL Low 0.7 - 1.2 mg/dL [facility] [place] Est, Globon Filt Rate 90 - PINF [facility] Comment on above: These results are not intended for use in patients <18 years of age. eGFR results are calculated without a race factor using the 2020 CKD-EPI equation. Careful clinical correlation is recommended, particularly when comparing to results calculated using previous equations. The CKD-EPI equation is less accurate in patients with extremes of muscle mass, extra-renal metabolism of creatine, excessive creatine ingestion, or following therapy that affects renal tubular secretion. Glucose [Mass/Vol] 130 mg/dL High 74 - 99 mg/dL [facility] Interpretation and review of laboratory results Abnormal [facility] Potassium [Moles/Vol] 4.1 mmol/L 3.7 - 5.3 mmol/L [facility] Protein [Mass/Vol] 4.3 g/dL Low 6.6 - 8.7 g/dL [facility] Sodium [Moles/Vol] 136 mmol/L 136 - 145 mmol/L [facility] Urea nitrogen [Mass/Vol] 25 mg/dL High 8 - 23 mg/dL [facility] Magnesiumon 09-12-2024 Magnesium [Mass/Vol] 2.0 mg/dL 1.6 - 2 .4 mg/dL [facility] No Panel Informationon 09-12 [facility] Phosphoruson 09-12-2024 Phosphate [Mass/Vol] 4.1 mg/dL 2.5 - 4 .5 mg/dL [facility] Triglycerideon 09-12-2024 Triglyceride [Mass/Vol] 79 mg/dL 0 - 149 mg/dL [facility] Comment on above: Triglyceride Guidelines: <150 Desirable 150-199 Borderline 200-499 High >499 Very high Based on AHA Guidelines for fasting triglyceride, May 2012. CBC with Auto Differentialon 09-10-2024 Absolute Bands 0.89 [employer] [facility] Bands 13 % High 0 - 10 % [facility] [place] Basophils (Bld) [#/Vol] 0.00 10*3/uL [facility] Basophils/100 WBC (Bld) 0 % 0 - 2 % [facility] Eosinophils (Bld) [#/Vol] 0.14 10*3/uL [facility] Eosinophils/100 WBC (Bld) 2 % 0 - 4 % [facility] Erythrocyte distribution width (RBC) [Ratio] 14.1 % 11.5 - 14.9 % [facility] Hematocrit (Bld) [Volume fraction] 22.8 % Low 36 - 46 % [facility] Hemoglobin (Bld) [Mass/Vol] 7.9 g/dL Low 12.0 - 16.0 g/dL [facility] Interpretation and review of laboratory results Abnormal [facility] Lymphocytes/100 WBC (Bld) 20 % Low 24 - 44 % [facility] Lymphocytes/100 WBC (Bld) 1.37 % [facility] MCH (RBC) [Entitic mass] 32.2 pg 26 - 34 pg [facility] MCHC (RBC) [Mass/Vol] 34.6 g/dL 31 - 3 7 g/dL [facility] MCV (RBC) [Entitic vol] 93.0 fL 80 - 100 fL [facility] Metamyelocytes 12 % High 0 [facility] Metamyelocytes Absolute 0.82 High 0 k/uL B on [facility] Monocytes/100 WBC (Bld) 11 % High 1 - 7 % B on [facility] Monocytes/100 WBC (Bld) 0.75 % B on [facility] Morphology Tahir (Bld) [Interp] 1+ POLYCHROMASIA [facility] Myelocytes 4 % High 0 [facility] Myelocytes Absolute 0.27 High 0 k/uL [facility] Neutrophils/100 WBC (Bld) 38 % 36 - 66 % [facility] nRBC 1 High 0 per 100 WBC [facility] Platelet mean volume (Bld) [Entitic vol] 8.8 fL 6.0 - 12.0 fL [facility] Platelets (Bld) [#/Vol] 247 10*3/uL [facility] RBC (Bld) [#/Vol] 2.45 10*6/uL Low 4.0 - 5.2 m/uL [facility] Segmented neutrophils/100 WBC (Bld) 2.59 % [facility] WBC other (Bld) [#/Vol] 6.8 B on [facility] Comment on above: ADJUSTED FOR NUCLEAT ED RBC'S CORRECTED ON 09/10 AT 0704: PREVIOUSLY REPORTED 6.9 [facility] Comprehensive Metabolic Pane ti 09-10-2024 Albumin [Mass/Vol] 2.2 g/dL Low 3.5 - 5.2 g/dL [facility] ALP [Catalytic activity/Vol] 105 U/L High 35 - 104 U/L [facility] ALT [Catalytic activity/Vol] 82 U/L High 10 - 35 U/L [facility] Anion gap [Moles/Vol] 8 mmol/L Low 9 - 16 mmol/L [facility] AST [Catalytic activity/Vol] 68 U/L High 10 - 35 U/L [facility] Bilirubin [Mass/Vol] mg/dL 0.0 - 1 .2 mg/dL [facility] Calcium [Mass/Vol] 8.1 mg/dL Low 8.6 - 10. 4 mg/dL [facility] Chloride [Moles/Vol] 100 mmol/L 98 - 10 7 mmol/L [facility] CO2 [Moles/Vol] 24 mmol/L 20 - 31 mmol/L [facility] Creatinine [Mass/Vol] 0.6 mg/dL Low 0.7 - 1.2 mg/dL [facility] Est, Glom Filt Rate 86 - PINF [facility] Comment on above: These results are not intended for use in patients <18 years of age. eGFR results are calculated without a race factor using the 2020 CKD-EPI equation. Careful clinical correlation is recommended, particularly when comparing to results calculated using previous equations. The CKD-EPI equation is less accurate in patients with extremes of muscle mass, extra-renal metabolism of creatine, excessive creatine ingestion, or following therapy that affects renal tubular secretion. Glucose [Mass/Vol] 102 mg/dL High 74 - 99 mg/dL [facility] Potassium [Moles/Vol] 4.0 mmol/L 3.7 - 5.3 mmol/L [facility] Protein [Mass/Vol] 4.4 g/dL Low 6.6 - 8.7 g/dL [facility] Sodium [Moles/Vol] 132 mmol/L Low 136 - 145 mmol/L [facility] Urea nitrogen [Mass/Vol] 29 mg/dL High 8 - 23 mg/dL [facility] Hemoglobin A1Con 09-10-2024 Average glucose Estimated from glycated hemoglobin (Bld) [Mass/Vol] 105 mg/dL [facility] Comment on above: The ADA and AACC rec ommend providing the estimated average glucose result to permit better patient understanding of their HBA1c result. HbA1c (Bld) [Mass fraction] 5.3 % 4.0 - 6.0 % [facility] Magnesiumon 09-10-2024 Magnesium [Mass/Vol] 1.9 mg/dL 1.6 - 2 .4 mg/dL [facility] No Panel Informationon 09-10 Interpretation and review of laboratory results Abnormal [facility] Phosphoruson 09-10-2024 Phosphate [Mass/Vol] 3.7 mg/dL 2.5 - 4 .5 mg/dL [facility] TSHon 09-10-2024 TSH Qn 15.90 m[IU]/L High [facility] Vitamin D 25 Hydroxyon 09-10 25-hydroxyvitamin D3 [Mass/Vol] 18.0 ng/mL Low 30.0 - 100.0 ng/mL [facility] Comment on above: Reference Range: Vitamin D status Range Deficiency <20 ng/mL Mild Deficiency 20-30 ng/mL Sufficiency 30-100 ng/mL Toxicity >100 ng/mL Interpretation and review of laboratory results Abnormal [facility] BASIC METABOLIC PANLon 09-09 Anion gap [Moles/Vol] 6 mmol/L Normal 5-15 [facility] Comment on above: Performed By: #### C BCA, PINR, [id number], CMP, 23475-3, 4687-1 #### [facility] ([id number]) [address], [address] [place] [address] Calcium [Mass/Vol] 7.9 mg/dL Low 8.5-10.5 [facility] Comment on above: Performed By: #### C BCA, PINR, [id number], CMP, , 2776-08 #### [facility] ([id number]) [address], [address] [place] [address] Chloride [Moles/Vol] 102 mmol/L Normal 98-109 [facility] Comment on above: Performed By: #### C BCA, PINR, [id number], CMP, , 2776-08 #### [facility] ([id number]) [address], [address] [place] [address] CO2 [Moles/Vol] 27 mmol/L Normal 22-32 [facility] Comment on above: Performed By: #### C BCA, PINR, [id number], CMP, , 2776-08 #### [facility] ([id number]) [address], [address] [place] [address] Creatinine [Mass/Vol] 0.57 mg/dL Normal 0.40-1.00 [facility] Comment on above: Result Comment: METH OD TRACEABLE TO IDMS STANDARD Performed By: #### C BCA, PINR, [id number], CMP, , 2776-08 #### [facility] ([id number]) [address], [address] [place] [address] GFR/1.73 sq M.predicted among non-blacks MDRD (S/P/Bld) [Vol rate/Area] 87 mL/min/{1.73_m2} Normal >59 [facility] Comment on above: Result Comment: Reported eGFR is based on the CKD-EPI 2020 equation that does not use a race coefficient. Performed By: #### C BCA, PINR, [id number], CMP, , 2776-08 #### [facility] ([id number]) [address], [address] [place] [address] Glucose [Mass/Vol] 125 mg/dL High 65-99 [facility] Comment on above: Performed By: #### C BCA, PINR, [id number], CMP, , 2776- #### [facility] ([id number]) [address], [address] [place] [address] Potassium [Moles/Vol] 4.0 mmol/L Normal 3.5-5.0 [facility] Comment on above: Performed By: #### C BCA, PINR, [id number], CMP, , 2776-08 #### [facility] ([id number]) [address], [address] [place] [address] Sodium [Moles/Vol] 135 mmol/L Normal 134-146 [facility] Comment on above: Performed By: #### C BCA, PINR, [id number], CMP, , 2776-08 #### [facility] ([id number]) [address], [address] [place] [address] Urea nitrogen [Mass/Vol] 34 mg/dL High 5-27 [facility] Comment on above: Performed By: #### C BCA, PINR, [id number], CMP, , 2776-08 #### [facility] ([id number]) [address], [address] [place] [address] COMPLETE BLOOD COUNTon 09-09 Erythrocyte distribution width (RBC) [Ratio] 14.3 % Normal 11.5-15.0 [facility] [facility] Comment on above: Performed By: #### C BCA, PINR, 85129-1, CMP, , 2776- #### [facility] ([id number]) [address], [address] [place] [address] Hematocrit (Bld) [Volume fraction] 23.1 % Low 35-47 [facility] Comment on above: Performed By: #### C BCA, PINR, 35920-3, CMP, , 2776-08 #### [facility] ([id number]) [address], [facility] [address] [place] [address] Hemoglobin (Bld) [Mass/Vol] 7.9 g/dL Low 11.7-15.5 [facility] Comment on above: Performed By: #### C BCA, PINR, 19294-4, CMP, , 2776-08 #### [facility] ([id number]) [address], [facility] [address] [place] [address] MCH (RBC) [Entitic mass] 31.2 pg Normal 27-34 [facility] Comment on above: Performed By: #### C BCA, PINR, 78995-1, CMP, , 2776-08 #### [facility] ([id number]) [address], [address] [place] [address] MCHC (RBC) [Mass/Vol] 34.0 g/dL Normal 32-36 [facility] Comment on above: Performed By: #### C BCA, PINR, 52085-2, CMP, , 2776-08 #### [facility] ([id number]) [address], [address] [place] [address] MCV (RBC) [Entitic vol] 92 fL Normal 80-100 [facility] Comment on above: Performed By: #### C BCA, PINR, 78329-6, CMP, , 2776-08 #### [facility] ([id number]) [address], [address] [place] [address] Platelet mean volume (Bld) [Entitic vol] 8.3 fL Normal 7-12 [facility] Comment on above: Performed By: #### C BCA, PINR, 37835-0, CMP, , 1 #### [facility] ([id number]) [address], [address] [place] [address] Platelets (Bld) [#/Vol] 272 10*3/uL Normal 150-450 [facility] Comment on above: Performed By: #### C BCA, PINR, 39086-9, CMP, , 2776-08 #### [facility] ([id number]) [address], [address] [place] [address] RBC COUNT 2.52 X10E12/L Low 3.80-5.20 [facility] Comment on above: Performed By: #### C BCA, PINR, 11463-5, CMP, , 2776-08 #### [facility] ([id number]) [address], [address] [place] [address] WBC (Bld) [#/Vol] 7.2 10*3/uL Normal 4.0-11.0 [facility] Comment on above: Performed By: #### C BCA, PINR, 03497-1, CMP, , 1 #### [facility] ([id number]) [address], [address] [place] [address] Glucose Glucometer (BldC) [M ass/Vol]on 09-09-2024 Glucose [Mass/Vol] 127 mg/dL High 65-99 [facility] Glucose [Mass/Vol] 161 mg/dL High 65-99 [facility] Glucose [Mass/Vol] 133 mg/dL High 65-99 [facility] Glucose [Mass/Vol] 144 mg/dL High 65-99 [facility] MAGNESIUMon 09-09-2024 Magnesium [Mass/Vol] 1.9 mg/dL Normal 1.8-2.6 [facility] Comment on above: Performed By: #### C BCA, PINR, 54952-7, CMP, , 2776-08 #### [facility] ([id number]) [address], [address] [place] [address] Natriuretic peptide B [Mass/ Vol]on 09-09-2024 Natriuretic peptide B (Bld) [Mass/Vol] 727 pg/mL High <100.0 [facility] Comment on above: Performed By: #### C BCA, PINR, 54161-8, CMP, , 2776-08 #### [facility] ([id number]) [address], [address] [place] [address] XR CHEST 1 VWon 09-09-2024 XR CHEST 1 VW XR CHEST 1 VW CLINICAL INFORMATION: Shortness of breath, difficulty breathing. TECHNIQUE: Chest radiograph, single AP view. COMPARISON: 09/08/2024. FINDINGS Left PICC line unchanged. Cardiomediastinal silhouette is unchanged. No pneumothorax. Small right pleural effusion. Medial bibasilar airspace disease, likely atelectasis, not significantly changed. IMPRESSION: * No significant interval change. Approved by Resident Fabrizio Valdes DO on 09/09/2024 10:35 AM ICece MD have personally reviewed the image(s) and agree with and/or edited the report Finalized by Cece Muniz MD on 09/09/2024 10:46 AM Normal [facility] BASIC METABOLIC PANLon 09-08 Anion gap [Moles/Vol] 5 mmol/L Normal 5-15 [facility] Comment on above: Performed By: #### C BCA, PINR, 39025-9, CMP, 2776-08 #### [facility] ([id number]) [address], [address] [place] [address] Calcium [Mass/Vol] 8.0 mg/dL Low 8.5-10.5 [facility] Comment on above: Performed By: #### C BCA, PINR, 12507-5, CMP, , 2776-08 #### [facility] ([id number]) [address], [address] [place] [address] Chloride [Moles/Vol] 102 mmol/L Normal 98-109 [facility] Comment on above: Performed By: #### C BCA, PINR, 71169-1, CMP, , 2776-08 #### [facility] ([id number]) [address], [address] [place] [address] CO2 [Moles/Vol] 28 mmol/L Normal 22-32 [facility] Comment on above: Performed By: #### C BCA, PINR, 15870-1, CMP, , 2776-08 #### [facility] ([id number]) [address], [address] [place] [address] Creatinine [Mass/Vol] 0.53 mg/dL Normal 0.40-1.00 [facility] Comment on above: Result Comment: METH OD TRACEABLE TO IDMS STANDARD Performed By: #### C BCA, PINR, 03985-9, CMP, , 2776-08 #### [facility] ([id number]) [address], [address] [place] [address] GFR/1.73 sq M.predicted among non-blacks MDRD (S/P/Bld) [Vol rate/Area] 88 mL/min/{1.73_m2} Normal >59 [facility] Comment on above: Result Comment: Reported eGFR is based on the CKD-EPI 2020 equation that does not use a race coefficient. Performed By: #### C BCA, PINR, 54669-2, CMP, , 2776-08 #### [facility] ([id number]) [address], [address] [place] [address] Glucose [Mass/Vol] 113 mg/dL High 65-99 [facility] Comment on above: Performed By: #### C BCA, PINR, 31655-2, CMP, , 2776- #### [facility] ([id number]) [address], [address] [place] [address] Potassium [Moles/Vol] 3.9 mmol/L Normal 3.5-5.0 [facility] Comment on above: Performed By: #### C BCA, PINR, 99622-9, CMP, , 2776- #### [facility] ([id number]) [address], [address] [place] [address] Sodium [Moles/Vol] 135 mmol/L Normal 134-146 [facility] Comment on above: Performed By: #### C BCA, PINR, 13427-3, CMP, , 2776-08 #### [facility] ([id number]) [address], [address] [place] [address] Urea nitrogen [Mass/Vol] 29 mg/dL High 5-27 [facility] Comment on above: Performed By: #### C BCA, PINR, 31098-4, CMP, , 2776-08 #### [facility] ([id number]) [address], [address] [place] [address] COMPLETE BLOOD COUNTon 09-08 Erythrocyte distribution width (RBC) [Ratio] 14.3 % Normal 11.5-15.0 [facility] Comment on above: Performed By: #### C BCA, PINR, 85076-2, CMP, 88721-8, 2776- #### [facility] ([id number]) [address], [facility] [address] [place] [address] Hematocrit (Bld) [Volume fraction] 23.7 % Low 35-47 [facility] Comment on above: Performed By: #### C BCA, PINR, 24328-3, CMP, , 2776- #### [facility] ([id number]) [address], [address] [place] [address] Hemoglobin (Bld) [Mass/Vol] 8.0 g/dL Low 11.7-15.5 [facility] Comment on above: Performed By: #### C BCA, PINR, 33002-3, CMP, , 2776-08 #### [facility] ([id number]) [address], [address] [place] [address] MCH (RBC) [Entitic mass] 31.1 pg Normal 27-34 [facility] Comment on above: Performed By: #### C BCA, PINR, 39549-9, CMP, , 2776-08 #### [facility] ([id number]) [address], [address] [place] [address] MCHC (RBC) [Mass/Vol] 33.6 g/dL Normal 32-36 [facility] Comment on above: Performed By: #### C BCA, PINR, 87554-6, CMP, , 2776-08 #### [facility] ([id number]) [address], [address] [place] [address] MCV (RBC) [Entitic vol] 93 fL Normal 80-[address] [facility] Comment on above: Performed By: #### C BCA, PINR, 70930-5, CMP, , 2776-08 #### [facility] ([id number]) [address], [address] [place] [address] Platelet mean volume (Bld) [Entitic vol] 8.8 fL Normal 7-12 [facility] Comment on above: Performed By: #### C BCA, PINR, 77597-8, CMP, , 2776-08 #### [facility] ([id number]) [address], [address] [place] [address] Platelets (Bld) [#/Vol] 318 10*3/uL Normal 150-450 [facility] Comment on above: Performed By: #### C BCA, PINR, 90957-3, CMP, , 2776-08 #### [facility] ([id number]) [address], [address] [place] [address] RBC COUNT 2.56 X10E12/L Low 3.80-5.20 [facility] Comment on above: Performed By: #### C BCA, PINR, 74561-9, CMP, , 2776-08 #### [facility] ([id number]) [address], [address] [place] [address] WBC (Bld) [#/Vol] 7.8 10*3/uL Normal 4.0-11.0 [facility] Comment on above: Performed By: #### C BCA, PINR, 60260-6, CMP, , 2776-08 #### [facility] ([id number]) [address], [address] [place] [address] Calcium.ionized (Bld) [Mass/ Vol]on 09-08-2024 IONIZED CALCIUM 4.8 mg/dL Normal 4.5-5.3 [facility] Comment on above: Performed By: #### C BCA, PINR, 32669-0, CMP, , 2776-08 #### [facility] ([id number]) [address], [address] [place] [address] Glucose Glucometer (BldC) [M ass/Vol]on 09-08-2024 Glucose [Mass/Vol] 127 mg/dL High 65-99 [facility] Glucose [Mass/Vol] 133 mg/dL High 65-99 [facility] Glucose [Mass/Vol] 106 mg/dL High 65-99 [facility] MAGNESIUMon 09-08-2024 Magnesium [Mass/Vol] 2.0 mg/dL Normal 1.8-2.6 [facility] Comment on above: Performed By: #### C BCA, PINR, 34016-1, CMP, , 2776-08 #### [facility] ([id number]) [address], [address] [place] [address] Magnesium Ionized ISE (Bld) [Moles/Vol]on 09-08-2024 Magnesium [Moles/Vol] 0.60 mmol/L Normal 0.45-0.74 [facility] Comment on above: Result Comment: NEW REFERENCE RANGE Performed By: #### C BCA, PINR, 50537-1, CMP, , 2776-08 #### [facility] ([id number]) [address], [address] [place] [address] PHOSPHORUSon 09-08-2024 Phosphate [Mass/Vol] 4.6 mg/dL Normal 2.4-4.9 [facility] Comment on above: Performed By: #### C BCA, PINR, 55871-3, CMP, , 2776-08 #### [facility] ([id number]) [address], [address] [place] [address] XR CHEST 1 VWon 09-08-2024 XR CHEST 1 VW XR CHEST 1 VW Clinical history: Pulmonary edema Views: 1 Comparison: 09/07/2024 Findings/Impression: 1. Bilateral pleural effusions atelectasis. Heart size stable. Vasculature is engorged. No pneumothorax. Central line overlies proximal SVC 2. In summary, findings remain consistent with vascular congestion without change. Pneumonia difficult exclude appropriate clinical setting.. Finalized by Audie Rae MD on 09/08/2024 7:14 AM Normal [facility] BASIC METABOLIC PANLon 09-07 Anion gap [Moles/Vol] 6 mmol/L Normal 5-15 [facility] Comment on above: Performed By: #### C BCA, PINR, 60215-7, CMP, , 2776-08 #### [facility] ([id number]) [address], [address] [place] [address] Calcium [Mass/Vol] 8.0 mg/dL Low 8.5-10.5 [facility] Comment on above: Performed By: #### C BCA, PINR, 27814-5, CMP, 37301-2, 2776- #### [facility] ([id number]) [address], [address] [place] [address] Chloride [Moles/Vol] 103 mmol/L Normal 98-109 [facility] Comment on above: Performed By: #### C BCA, PINR, 69868-9, CMP, , 2776-08 #### [facility] ([id number]) [address], [address] [place] [address] CO2 [Moles/Vol] 27 mmol/L Normal 22-32 [facility] Comment on above: Performed By: #### C BCA, PINR, 58849-9, CMP, , 2776-08 #### [facility] ([id number]) [address], [address] [place] [address] Creatinine [Mass/Vol] 0.43 mg/dL Normal 0.40-1.00 [facility] Comment on above: Result Comment: METH OD TRACEABLE TO IDMS STANDARD Performed By: #### C BCA, PINR, 50027-8, CMP, , 2776-08 #### [facility] ([id number]) [address], [address] [place] [address] eGFR (CKD-EPI) NON-RACE DEPENDENT >90 Normal >59 [facility] Comment on above: Result Comment: Reported eGFR is based on the CKD-EPI 2020 equation that does not use a race coefficient. Performed By: #### C BCA, PINR, 23877-0, CMP, , 2776- #### [facility] ([id number]) [address], [address] [place] [address] Glucose [Mass/Vol] 124 mg/dL High 65-99 [facility] Comment on above: Performed By: #### C BCA, PINR, 63179-1, CMP, , 2776-08 #### [facility] ([id number]) [address], [address] [place] [address] Potassium [Moles/Vol] 4.0 mmol/L Normal 3.5-5.0 [facility] Comment on above: Performed By: #### C BCA, PINR, 95971-7, CMP, , 2776-08 #### [facility] ([id number]) [address], [address] [place] [address] Sodium [Moles/Vol] 136 mmol/L Normal 134-146 [facility] Comment on above: Performed By: #### C BCA, PINR, 46062-9, CMP, , 2776-08 #### [facility] ([id number]) [address], [address] [place] [address] Urea nitrogen [Mass/Vol] 27 mg/dL Normal 5-27 [facility] Comment on above: Performed By: #### C BCA, PINR, 97901-2, CMP, , 2776-08 #### [facility] ([id number]) [address], [address] [place] [address] COMPLETE BLOOD COUNTon 09-07 Erythrocyte distribution width (RBC) [Ratio] 14.3 % Normal 11.5-15.0 [facility] Comment on above: Performed By: #### C BCA, PINR, 69601-4, CMP, , 2776-08 #### [facility] ([id number]) [address] [address] [place] [address] Hematocrit (Bld) [Volume fraction] 24.8 % Low 35-47 [facility] Comment on above: Performed By: #### C BCA, PINR, 74890-9, CMP, , 2776-08 #### [facility] ([id number]) [address], [address] [place] [address] Hemoglobin (Bld) [Mass/Vol] 8.7 g/dL Low 11.7-15.5 [facility] Comment on above: Performed By: #### C BCA, PINR, 89312-2, CMP, , 2776-08 #### [facility] ([id number]) [address], [facility] [address] [place] [address] MCH (RBC) [Entitic mass] 32.4 pg Normal 27-34 [facility] Comment on above: Performed By: #### C BCA, PINR, 95563-5, CMP, , 2776-08 #### [facility] ([id number]) [address], [address] [place] [address] MCHC (RBC) [Mass/Vol] 35.1 g/dL Normal 32-36 [facility] Comment on above: Performed By: #### C BCA, PINR, 10576-6, CMP, , 2776-08 #### [facility] ([id number]) [address], [address] [place] [address] MCV (RBC) [Entitic vol] 92 fL Normal 80-100 [facility] Comment on above: Performed By: #### C BCA, PINR, 54102-6, CMP, , 2776-08 #### [facility] ([id number]) [address], [address] [place] [address] Platelet mean volume (Bld) [Entitic vol] 8.8 fL Normal 7-12 [facility] Comment on above: Performed By: #### C BCA, PINR, 09706-5, CMP, , 2776-08 #### [facility] ([id number]) [address], [address] [place] [address] Platelets (Bld) [#/Vol] 292 10*3/uL Normal 150-450 [facility] Comment on above: Performed By: #### C BCA, PINR, 93295-7, CMP, , 2776-08 #### [facility] ([id number]) [address], [address] [place] [address] RBC COUNT 2.69 X10E12/L Low 3.80-5.20 [facility] Comment on above: Performed By: #### C MEI, PINR, 67047-1, CMP, , 2776-08 #### [facility] ([id number]) [address], [address] [place] [address] WBC (Bld) [#/Vol] 5.8 10*3/uL Normal 4.0-11.0 [facility] Comment on above: Performed By: #### C BCA, PINR, 46965-8, CMP, , 2776-08 #### [facility] ([id number]) [address], [address] [place] [address] Glucose Glucometer (BldC) [M ass/Vol]on 09-07-2024 Glucose [Mass/Vol] 120 mg/dL High 65-99 [facility] Glucose [Mass/Vol] 147 mg/dL High 65-99 [facility] Glucose [Mass/Vol] 129 mg/dL High 65-99 [facility] Glucose [Mass/Vol] 122 mg/dL High 65-99 [facility] Glucose [Mass/Vol] 139 mg/dL High 65-99 [facility] MAGNESIUMon 09-07-2024 Magnesium [Mass/Vol] 1.8 mg/dL Normal 1.8-2.6 [facility] Comment on above: Performed By: #### C BCA, PINR, 50465-4, CMP, , 2776-08 #### [facility] ([id number]) [address], [address] [place] [address] Natriuretic peptide B [Mass/ Vol]on 09-07-2024 Natriuretic peptide B (Bld) [Mass/Vol] 706 pg/mL High <100.0 [facility] Comment on above: Performed By: #### C BCA, PINR, 27651-1, CMP, , 2776-08 #### [facility] ([id number]) [address], [address] [place] [address] XR CHEST 1 VWon 09-07-2024 XR CHEST 1 VW XR CHEST 1 VW Single view chest History:acute SOB Difficulty breathing, shortness of breath Comparison: 09/06/2024 Findings: Single portable view of the chest. Small bilateral pleural effusions with bilateral lower lung atelectasis versus pneumonia. There is atherosclerotic thoracic aorta. Left PICC tip in the SVC. No discernible pneumothorax. Impression: No increased bilateral lower lung atelectasis versus pneumonia with small bilateral pleural effusions. Finalized by Peterson Krueger MD on 09/07/2024 3:29 PM Normal [facility] BASIC METABOLIC PANLon 09-06 Anion gap [Moles/Vol] 3 mmol/L Low 5-15 [facility] Comment on above: Performed By: #### C BCA, PINR, 28016-3, CMP, , 2776-08 #### [facility] ([id number]) [address], [address] [place] [address] Calcium [Mass/Vol] 7.8 mg/dL Low 8.5-10.5 [facility] Comment on above: Performed By: #### C BCA, PINR, 17601-3, CMP, , 2776-08 #### [facility] ([id number]) [address], [address] [place] [address] Chloride [Moles/Vol] 105 mmol/L Normal 98-109 [facility] Comment on above: Performed By: #### C BCA, PINR, 61237-4, CMP, , 2776-08 #### [facility] ([id number]) [address], [address] [place] [address] CO2 [Moles/Vol] 28 mmol/L Normal 22-32 [facility] Comment on above: Performed By: #### C BCA, PINR, 30170-9, CMP, , 2776-08 #### [facility] ([id number]) [address], [address] [place] [address] Creatinine [Mass/Vol] 0.46 mg/dL Normal 0.40-1.00 [facility] Comment on above: Result Comment: METH OD TRACEABLE TO IDMS STANDARD Performed By: #### C BCA, PINR, 51017-1, CMP, , 2776-08 #### [facility] ([id number]) [address], [address] [place] [address] eGFR (CKD-EPI) NON-RACE DEPENDENT >90 Normal >59 [facility] Comment on above: Result Comment: Reported eGFR is based on the CKD-EPI 1 equation that does not use a race coefficient. Performed By: #### C BCA, PINR, 39295-4, CMP, , 2776-08 #### [facility] ([id number]) [address], [address] [place] [address] Glucose [Mass/Vol] 133 mg/dL High 65-99 [facility] Comment on above: Performed By: #### C BCA, PINR, 31128-1, CMP, , 2776-08 #### [facility] ([id number]) [address], [address] [place] [address] Potassium [Moles/Vol] 3.9 mmol/L Normal 3.5-5.0 [facility] Comment on above: Performed By: #### C BCA, PINR, 14817-5, CMP, , 2776-08 #### [facility] ([id number]) [address], [address] [place] [address] Sodium [Moles/Vol] 136 mmol/L Normal 134-146 [facility] Comment on above: Performed By: #### C BCA, PINR, 42553-4, CMP, , 2776-08 #### [facility] ([id number]) [address], [facility] [address] [place] [address] Urea nitrogen [Mass/Vol] 23 mg/dL Normal 5-27 [facility] Comment on above: Performed By: #### C BCA, PINR, 75703-3, CMP, , 2776-08 #### [facility] ([id number]) [address], [address] [address] COMPLETE BLOOD COUNTon 09-06 Erythrocyte distribution width (RBC) [Ratio] 14.4 % Normal 11.5-15.0 [facility] Comment on above: Performed By: #### C BCA, PINR, 01072-9, CMP, , 2776-08 #### [facility] ([id number]) [address], [facility] [address] [place] [address] Hematocrit (Bld) [Volume fraction] 23.9 % Low 35-47 [facility] Comment on above: Performed By: #### C BCA, PINR, 26501-9, CMP, , 2776-08 #### [facility] ([id number]) [address], [address] [address] Hemoglobin (Bld) [Mass/Vol] 8.1 g/dL Low 11.7-15.5 [facility] Comment on above: Performed By: #### C BCA, PINR, 60645-4, CMP, 87733-9, 2776-08 #### [facility] ([id number]) [address], [address] [place] [address] MCH (RBC) [Entitic mass] 31.3 pg Normal 27-34 [facility] Comment on above: Performed By: #### C BCA, PINR, 38474-5, CMP, 45014-7, 2776- #### [facility] ([id number]) [address], [address] [place] [address] MCHC (RBC) [Mass/Vol] 34.0 g/dL Normal 32-36 [facility] Comment on above: Performed By: #### C BCA, PINR, 74162-6, CMP, 00623-2, 2776-08 #### [facility] ([id number]) [address], [address] [place] [address] MCV (RBC) [Entitic vol] 92 fL Normal 80-[address] [facility] Comment on above: Performed By: #### C BCA, PINR, 05954-8, CMP, 07912-6, 2776- #### [facility] ([id number]) [address] [address] [place] [address] Platelet mean volume (Bld) [Entitic vol] 8.7 fL Normal 7-12 [facility] Comment on above: Performed By: #### C BCA, PINR, 83318-5, CMP, 19916-8, 2776-08 #### [facility] ([id number]) [address] [address] [place] [address] Platelets (Bld) [#/Vol] 302 10*3/uL Normal 150-450 [facility] Comment on above: Performed By: #### C BCA, PINR, 09702-6, CMP, 28523-5, 2776- #### [facility] ([id number]) [address] [address] [place] [address] RBC COUNT 2.59 X10E12/L Low 3.80-5.20 [facility] Comment on above: Performed By: #### C BCA, PINR, 23323-5, CMP, 43797-8, 2776- #### [facility] ([id number]) [address], [address] [place] [address] WBC (Bld) [#/Vol] 5.4 10*3/uL Normal 4.0-11.0 [facility] Comment on above: Performed By: #### C BCA, PINR, 68901-1, CMP, 75473-0, 2776- #### [facility] ([id number]) [address], [address] [place] [address] [place] MOTILITY FUNCTION on 09-06-2024 FL SWALLOW MOTILITY FUNCTION FL SWALLOW MOTILITY FUNCTION FL SWALLOW MOTILITY FUNCTION HISTORY: Oropharyngeal dysphagia COMPARISON: None TECHNIQUE: Video fluoroscopic swallow study was performed in conjunction with speech pathologist. Barium contrast materials of varying consistencies administered. FINDINGS: Fluoroscopy time: 8 seconds Reference air kerma: 0.8 mGy Runs: 11 Thin: Transient penetration. Applesauce: No penetration or aspiration. IMPRESSION: 1. Abnormal exam as described in body of report. 2. Please correlate with dedicated speech pathology report for additional details and recommendations. Approved by Jeffrey Schulz DO on 09/06/2024 10:21 AM IYarelis MD have personally reviewed the image(s) and agree with and/or edited the report Finalized by Yarelis Redd MD on 09/06/2024 11:50 AM Normal [facility] Glucose Glucometer (BldC) [M ass/Vol]on 09-06-2024 Glucose [Mass/Vol] 150 mg/dL High 65-99 [facility] Glucose [Mass/Vol] 124 mg/dL High 65-99 [facility] Glucose [Mass/Vol] 116 mg/dL High 65-99 [facility] Glucose [Mass/Vol] 139 mg/dL High 65-99 [facility] Glucose [Mass/Vol] 145 mg/dL High 65-99 [facility] MAGNESIUMon 09-06-2024 Magnesium [Mass/Vol] 1.9 mg/dL Normal 1.8-2.6 [facility] Comment on above: Performed By: #### C BCA, PINR, 98453-0, CMP, 17331-2, 2776-1 #### [facility] ([id number]) [address], [address] [place] [address] XR CHEST 1 VWon 09-06-2024 XR CHEST 1 VW XR CHEST 1 VW EXAM: XR CHEST 1 VW CLINICAL INFORMATION: Confirm PICC placement. COMPARISON: 08/23/2024 FINDINGS: There are low lung volumes with some associated hypoventilatory changes. There is no pulmonary edema. There are suspected trace pleural effusions. Stable cardiomediastinal silhouette. The left PICC tip is in the SVC. The gastric tube has been removed in the interval. IMPRESSION: 1. Suspected trace pleural effusions. There is no pulmonary edema or focal airspace consolidations. 2. Interval removal of the gastric tube. 3. The left PICC tip is in the SVC. Finalized by Barrera [place] MD on 09/06/2024 5:17 PM Normal [facility] COMPLETE BLOOD COUNTon 09-05 Erythrocyte distribution width (RBC) [Ratio] 14.1 % Normal 11.5-15.0 [facility] Comment on above: Performed By: #### C BCA, PINR, 98122-2, CMP, , 1 #### [facility] ([id number]) [address], [address] [place] [address] Hematocrit (Bld) [Volume fraction] 27.7 % Low 35-47 [facility] Comment on above: Performed By: #### C BCA, PINR, 85165-4, CMP, 26751-3, 2776-1 #### [facility] ([id number]) [address], [address] [place] [address] Hemoglobin (Bld) [Mass/Vol] 9.4 g/dL Low 11.7-15.5 [facility] Comment on above: Performed By: #### C BCA, PINR, 12502-1, CMP, , 2776-08 #### [facility] ([id number]) [address], [facility] [address] [place] [address] MCH (RBC) [Entitic mass] 31.5 pg Normal 27-34 [facility] Comment on above: Performed By: #### C BCA, PINR, 65104-3, CMP, , 2776-08 #### [facility] ([id number]) [address], [facility] [address] [place] [address] MCHC (RBC) [Mass/Vol] 33.9 g/dL Normal 32-36 [facility] Comment on above: Performed By: #### C BCA, PINR, 82379-7, CMP, , 2776-08 #### [facility] ([id number]) [address] [address] [place] [address] MCV (RBC) [Entitic vol] 93 fL Normal 80-100 [facility] Comment on above: Performed By: #### C BCA, PINR, 90514-1, CMP, , 2776-08 #### [facility] ([id number]) [address], [facility] [address] [place] [address] Platelet mean volume (Bld) [Entitic vol] 8.7 fL Normal 7-12 [facility] Comment on above: Performed By: #### C BCA, PINR, 07474-4, CMP, , 2776-08 #### [facility] ([id number]) [address] [address] [place] [address] Platelets (Bld) [#/Vol] 333 10*3/uL Normal 150-450 [facility] Comment on above: Performed By: #### C BCA, PINR, 97475-6, CMP, 99004-9, 1 #### [facility] ([id number]) [address], [address] [place] [address] RBC COUNT 2.98 X10E12/L Low 3.80-5.20 [facility] Comment on above: Performed By: #### C BCA, PINR, 19142-4, CMP, , 2776-08 #### [facility] ([id number]) [address], [address] [place] [address] WBC (Bld) [#/Vol] 5.1 10*3/uL Normal 4.0-11.0 [facility] Comment on above: Performed By: #### C BCA, PINR, 82288-7, CMP, , 2776-08 #### [facility] ([id number]) [address], [address] [place] [address] COMPREHENSIVE METABOLIC PANE Ti 09-05-2024 Albumin [Mass/Vol] 2.3 g/dL Low 3.2-5.3 [facility] Comment on above: Performed By: #### C BCA, PINR, 60962-8, CMP, , 2776-08 #### [facility] ([id number]) [address], [address] [place] [address] ALP [Catalytic activity/Vol] 85 U/L Normal 39-130 [facility] Comment on above: Performed By: #### C BCA, PINR, 43674-3, CMP, 71362-7, 2776- #### [facility] ([id number]) [address], [address] [place] [address] ALT [Catalytic activity/Vol] 20 U/L Normal 0-31 [facility] Comment on above: Performed By: #### C BCA, PINR, 59213-6, CMP, , 2776-08 #### [facility] ([id number]) [address], [address] [place] [address] Anion gap [Moles/Vol] 8 mmol/L Normal 5-15 [facility] Comment on above: Performed By: #### C BCA, PINR, 37854-4, CMP, , 2776- #### [facility] ([id number]) [address], [address] [place] [address] AST [Catalytic activity/Vol] 34 U/L Normal 0-41 [facility] Comment on above: Performed By: #### C BCA, PINR, 81028-0, CMP, , 2776-08 #### [facility] ([id number]) [address], [address] [place] [address] Bilirubin [Mass/Vol] 0.4 mg/dL Normal 0.3-1.2 [facility] Comment on above: Performed By: #### C BCA, PINR, 58057-1, CMP, , 2776-08 #### [facility] ([id number]) [address], [address] [place] [address] Calcium [Mass/Vol] 8.1 mg/dL Low 8.5-10.5 [facility] Comment on above: Performed By: #### C BCA, PINR, 70773-7, CMP, , 2776-08 #### [facility] ([id number]) [address], [address] [place] [address] Chloride [Moles/Vol] 105 mmol/L Normal 98-109 [facility] Comment on above: Performed By: #### C BCA, PINR, 99352-7, CMP, , 2776- #### [facility] ([id number]) [address], [address] [place] [address] CO2 [Moles/Vol] 27 mmol/L Normal 22-32 [facility] Comment on above: Performed By: #### C BCA, PINR, 04924-9, CMP, , 2776-08 #### [facility] ([id number]) [address], [address] [place] [address] Creatinine [Mass/Vol] 0.40 mg/dL Normal 0.40-1.00 [facility] Comment on above: Result Comment: METH OD TRACEABLE TO IDMS STANDARD Performed By: #### C BCA, PINR, 36144-6, CMP, , 2776-08 #### [facility] ([id number]) [address], [address] [place] [address] eGFR (CKD-EPI) NON-RACE DEPENDENT >90 Normal >59 [facility] Comment on above: Result Comment: Reported eGFR is based on the CKD-EPI 2020 equation that does not use a race coefficient. Performed By: #### C BCA, PINR, 91794-2, CMP, , 2776-08 #### [facility] ([id number]) [address], [address] [place] [address] Glucose [Mass/Vol] 118 mg/dL High 65-99 [facility] Comment on above: Performed By: #### C BCA, PINR, 63504-7, CMP, , 2776-08 #### [facility] ([id number]) [address], [address] [place] [address] Potassium [Moles/Vol] 3.9 mmol/L Normal 3.5-5.0 [facility] Comment on above: Performed By: #### C BCA, PINR, 15438-5, CMP, , 2776-08 #### [facility] ([id number]) [address], [address] [place] [address] Protein [Mass/Vol] 4.7 g/dL Low 6.0-8.0 [facility] Comment on above: Performed By: #### C BCA, PINR, 40918-6, CMP, , 2776-08 #### [facility] ([id number]) [address], [address] [place] [address] Sodium [Moles/Vol] 140 mmol/L Normal 134-146 [facility] Comment on above: Performed By: #### C BCA, PINR, 61542-7, CMP, , 2776-08 #### [facility] ([id number]) [address], [address] [place] [address] Urea nitrogen [Mass/Vol] 19 mg/dL Normal 5-27 [facility] Comment on above: Performed By: #### C BCA, PINR, 76132-1, CMP, , 2776-08 #### [facility] ([id number]) [address], [address] [place] [address] Calcium.ionized (Bld) [Mass/ Vol]on 09-05-2024 IONIZED CALCIUM 4.6 mg/dL Normal 4.5-5.3 [facility] Comment on above: Performed By: #### C BCA, PINR, 88227-4, CMP, , 1 #### [facility] ([id number]) [address], [address] [place] [address] Glucose Glucometer (BldC) [M ass/Vol]on 09-05-2024 Glucose [Mass/Vol] 121 mg/dL High 65-99 [facility] Glucose [Mass/Vol] 152 mg/dL High 65-99 [facility] Glucose [Mass/Vol] 135 mg/dL High 65-99 [facility] MAGNESIUMon 09-05-2024 Magnesium [Mass/Vol] 2.0 mg/dL Normal 1.8-2.6 [facility] Comment on above: Performed By: #### C BCA, PINR, 73184-0, CMP, , 2776-08 #### [facility] ([id number]) [address], [address] [place] [address] Magnesium Ionized ISE (Bld) [Moles/Vol]on 09-05-2024 Magnesium [Moles/Vol] 0.62 mmol/L Normal 0.45-0.74 [facility] Comment on above: Result Comment: NEW REFERENCE RANGE Performed By: #### C BCA, PINR, 52251-1, CMP, , 2776-08 #### [facility] ([id number]) [address], [address] [place] [address] PHOSPHORUSon 09-05-2024 Phosphate [Mass/Vol] 3.5 mg/dL Normal 2.4-4.9 [facility] Comment on above: Performed By: #### C BCA, PINR, 85601-0, CMP, , 2776-08 #### [facility] ([id number]) [address], [address] [place] [address] TRIGLYCERIDEon 09-05-2024 Triglyceride [Mass/Vol] 123 mg/dL Normal 27-[address] [facility] Comment on above: Performed By: #### C BCA, PINR, 77568-9, CMP, , 2776-08 #### [facility] ([id number]) [address], [address] [place] [address] BASIC METABOLIC PANLon 09-04 Anion gap [Moles/Vol] 7 mmol/L Normal 5-15 [facility] Comment on above: Performed By: #### C BCA, PINR, 68570-9, CMP, , 2776-08 #### [facility] ([id number]) [address], [address] [place] [address] Calcium [Mass/Vol] 7.7 mg/dL Low 8.5-10.5 [facility] Comment on above: Performed By: #### C BCA, PINR, 28825-6, CMP, , 2776-08 #### [facility] ([id number]) [address], [address] [place] [address] Chloride [Moles/Vol] 105 mmol/L Normal 98-109 [facility] Comment on above: Performed By: #### C BCA, PINR, 74179-3, CMP, , 2776-08 #### [facility] ([id number]) [address], [address] [place] [address] CO2 [Moles/Vol] 26 mmol/L Normal 22-32 [facility] Comment on above: Performed By: #### C BCA, PINR, 45539-5, CMP, , 2776-08 #### [facility] ([id number]) [address], [address] [place] [address] Creatinine [Mass/Vol] 0.41 mg/dL Normal 0.40-1.00 [facility] Comment on above: Result Comment: METH OD TRACEABLE TO IDMS STANDARD Performed By: #### C BCA, PINR, 01426-9, CMP, , 2776-08 #### [facility] ([id number]) [address], [address] [place] [address] eGFR (CKD-EPI) NON-RACE DEPENDENT >90 Normal >59 [facility] Comment on above: Result Comment: Reported eGFR is based on the CKD-EPI 2020 equation that does not use a race coefficient. Performed By: #### C BCA, PINR, 68500-2, CMP, , 2776-08 #### [facility] ([id number]) [address], [address] [place] [address] Glucose [Mass/Vol] 140 mg/dL High 65-99 [facility] Comment on above: Performed By: #### C BCA, PINR, 36513-0, CMP, , 2776- #### [facility] ([id number]) [address], [address] [place] [address] Potassium [Moles/Vol] 3.8 mmol/L Normal 3.5-5.0 [facility] Comment on above: Performed By: #### C BCA, PINR, 94318-5, CMP, , 2776- #### [facility] ([id number]) [address], [address] [place] [address] Sodium [Moles/Vol] 138 mmol/L Normal 134-146 [facility] Comment on above: Performed By: #### C BCA, PINR, 71567-2, CMP, , 2776-08 #### [facility] ([id number]) [address], [address] [place] [address] Urea nitrogen [Mass/Vol] 20 mg/dL Normal 5-27 [facility] Comment on above: Performed By: #### C BCA, PINR, 13003-6, CMP, , 2776-08 #### [facility] ([id number]) [address], [address] [place] [address] COMPLETE BLOOD COUNTon 09-04 Erythrocyte distribution width (RBC) [Ratio] 14.6 % Normal 11.5-15.0 [facility] Comment on above: Performed By: #### C BCA, PINR, 51919-3, CMP, , 2776-08 #### [facility] ([id number]) [address], [address] [place] [address] Hematocrit (Bld) [Volume fraction] 27.3 % Low 35-47 [facility] Comment on above: Performed By: #### C BCA, PINR, 97341-1, CMP, , 2776- #### [facility] ([id number]) [address], [address] [place] [address] Hemoglobin (Bld) [Mass/Vol] 9.4 g/dL Low 11.7-15.5 [facility] Comment on above: Performed By: #### C BCA, PINR, 56568-4, CMP, 45652-5, 2776-08 #### [facility] ([id number]) [address], [address] [place] [address] MCH (RBC) [Entitic mass] 31.4 pg Normal 27-34 [facility] Comment on above: Performed By: #### C BCA, PINR, 63050-9, CMP, 77726-1, 2776-08 #### [facility] ([id number]) [address], [address] [place] [address] MCHC (RBC) [Mass/Vol] 34.3 g/dL Normal 32-36 [facility] Comment on above: Performed By: #### C BCA, PINR, 46559-0, CMP, , 2776-08 #### [facility] ([id number]) [address], [address] [place] [address] MCV (RBC) [Entitic vol] 92 fL Normal 80-[address] [facility] Comment on above: Performed By: #### C BCA, PINR, 30771-4, CMP, , 2776-08 #### [facility] ([id number]) [address], [address] [place] [address] Platelet mean volume (Bld) [Entitic vol] 8.8 fL Normal 7-12 [facility] Comment on above: Performed By: #### C BCA, PINR, 26842-5, CMP, 85435-8, 2776- #### [facility] ([id number]) [address], [address] [place] [address] Platelets (Bld) [#/Vol] 292 10*3/uL Normal 150-450 [facility] Comment on above: Performed By: #### C MEI, PINR, 51737-3, CMP, , 2776-08 #### [facility] ([id number]) [address], [address] [place] [address] RBC COUNT 2.98 X10E12/L Low 3.80-5.20 [facility] Comment on above: Performed By: #### C MEI, PINR, 46020-7, CMP, , 2776-08 #### [facility] ([id number]) [address], [address] [place] [address] WBC (Bld) [#/Vol] 5.7 10*3/uL Normal 4.0-11.0 [facility] Comment on above: Performed By: #### C MEI, PINR, 05496-3, CMP, , 2776-08 #### [facility] ([id number]) [address] [place] [address] Glucose Glucometer (BldC) [M ass/Vol]on 09-04-2024 Glucose [Mass/Vol] 129 mg/dL High 65-99 [facility] Glucose [Mass/Vol] 138 mg/dL High 65-99 [facility] Glucose [Mass/Vol] 142 mg/dL High 65-99 [facility] Glucose [Mass/Vol] 138 mg/dL High 65-99 [facility] MAGNESIUMon 09-04-2024 Magnesium [Mass/Vol] 2.0 mg/dL Normal 1.8-2.6 [facility] Comment on above: Performed By: #### C BCA, PINR, 50691-4, CMP, , 2776-08 #### [facility] ([id number]) [address], [address] [place] [address] PHOSPHORUSon 09-04-2024 Phosphate [Mass/Vol] 3.1 mg/dL Normal 2.4-4.9 [facility] Comment on above: Performed By: #### C BCA, PINR, 57930-5, CMP, , 2776-08 #### [facility] ([id number]) [address], [address] [place] [address] XR CHEST 1 VWon 09-04-2024 XR CHEST 1 VW XR CHEST 1 VW CLINICAL INFORMATION: Chest pain and cough COMPARISON: Chest radiograph dated 08/27/2024. VIEWS: 1. FINDINGS: Gastric tube has tip in the stomach. Left PICC line has tip in distal superior vena cava. Cardiac and mediastinal shadows are normal. No infiltrates. Stable small bilateral pleural effusions. Stable mild bibasilar atelectasis. No pneumothorax. No free air below the diaphragm. IMPRESSION: Stable mild bibasilar atelectasis and small bilateral pleural effusions. Finalized by Lucia Bai MD on 09/04/2024 9:30 AM Normal [facility] BASIC METABOLIC PANLon 09-03 Anion gap [Moles/Vol] 5 mmol/L Normal 5-15 [facility] Comment on above: Performed By: #### C BCA, PINR, 76627-5, CMP, , 2776-08 #### [facility] ([id number]) [address], [address] [place] [address] Calcium [Mass/Vol] 7.7 mg/dL Low 8.5-10.5 [facility] Comment on above: Performed By: #### C BCA, PINR, 67242-6, CMP, , 2776- #### [facility] ([id number]) [address], [address] [place] [address] Chloride [Moles/Vol] 107 mmol/L Normal 98-109 [facility] Comment on above: Performed By: #### C BCA, PINR, 87563-2, CMP, , 2776- #### [facility] ([id number]) [address], [address] [place] [address] CO2 [Moles/Vol] 27 mmol/L Normal 22-32 [facility] Comment on above: Performed By: #### C BCA, PINR, 88386-0, CMP, , 2776-08 #### [facility] ([id number]) [address], [address] [place] [address] Creatinine [Mass/Vol] 0.40 mg/dL Normal 0.40-1.00 [facility] Comment on above: Result Comment: METH OD TRACEABLE TO IDMS STANDARD Performed By: #### C BCA, PINR, 77547-2, CMP, , 2776-08 #### [facility] ([id number]) [address], [address] [place] [address] eGFR (CKD-EPI) NON-RACE DEPENDENT >90 Normal >59 [facility] Comment on above: Result Comment: Reported eGFR is based on the CKD-EPI 2020 equation that does not use a race coefficient. Performed By: #### C BCA, PINR, 12215-6, CMP, , 2776-08 #### [facility] ([id number]) [address] [place] [address] Glucose [Mass/Vol] 124 mg/dL High 65-99 [facility] Comment on above: Performed By: #### C BCA, PINR, 57618-3, CMP, , 2776-08 #### [facility] ([id number]) [address] [address] [place] [address] Potassium [Moles/Vol] 4.0 mmol/L Normal 3.5-5.0 [facility] Comment on above: Performed By: #### C BCA, PINR, 88631-5, CMP, , 2776- #### [facility] ([id number]) [address], [address] [place] [address] Sodium [Moles/Vol] 139 mmol/L Normal 134-146 [facility] Comment on above: Performed By: #### C BCA, PINR, 38125-2, CMP, 68587-6, 2776-08 #### [facility] ([id number]) [address], [facility] [address] [place] [address] Urea nitrogen [Mass/Vol] 19 mg/dL Normal 5-27 [facility] Comment on above: Performed By: #### C BCA, PINR, 99319-0, CMP, , 2776-08 #### [facility] ([id number]) [address] [address] [place] [address] COMPLETE BLOOD COUNTon 09-03 Erythrocyte distribution width (RBC) [Ratio] 14.3 % Normal 11.5-15.0 [facility] Comment on above: Performed By: #### C BCA, PINR, 61232-1, CMP, , 2776-08 #### [facility] ([id number]) [address] [address] [place] [address] Hematocrit (Bld) [Volume fraction] 27.0 % Low 35-47 [facility] Comment on above: Performed By: #### C BCA, PINR, 56776-8, CMP, , 2776-08 #### [facility] ([id number]) [address] [address] [place] [address] Hemoglobin (Bld) [Mass/Vol] 9.4 g/dL Low 11.7-15.5 [facility] Comment on above: Performed By: #### C BCA, PINR, 37546-8, CMP, , 2776-08 #### [facility] ([id number]) [address] [address] [place] [address] MCH (RBC) [Entitic mass] 31.8 pg Normal 27-34 [facility] Comment on above: Performed By: #### C BCA, PINR, 02208-7, CMP, , 2776-08 #### [facility] ([id number]) [address], [address] [place] [address] MCHC (RBC) [Mass/Vol] 34.8 g/dL Normal 32-36 [facility] Comment on above: Performed By: #### C BCA, PINR, 49225-3, CMP, , 2776-08 #### [facility] ([id number]) [address], [facility] [address] [place] [address] MCV (RBC) [Entitic vol] 92 fL Normal 80-[address] [facility] Comment on above: Performed By: #### C BCA, PINR, 20752-8, CMP, , 2776-08 #### [facility] ([id number]) [address], [address] [place] [address] Platelet mean volume (Bld) [Entitic vol] 8.9 fL Normal 7-12 [facility] Comment on above: Performed By: #### C BCA, PINR, 35608-7, CMP, , 2776-08 #### [facility] ([id number]) [address], [address] [place] [address] Platelets (Bld) [#/Vol] 293 10*3/uL Normal 150-450 [facility] Comment on above: Performed By: #### C BCA, PINR, 52151-9, CMP, , 2776-08 #### [facility] ([id number]) [address], [address] [place] [address] RBC COUNT 2.95 X10E12/L Low 3.80-5.20 [facility] Comment on above: Performed By: #### C BCA, PINR, 85478-8, CMP, , 2776-08 #### [facility] ([id number]) [address], [address] [place] [address] WBC (Bld) [#/Vol] 6.0 10*3/uL Normal 4.0-11.0 [facility] Comment on above: Performed By: #### C BCA, PINR, 74294-9, CMP, , 2776-08 #### [facility] ([id number]) [address], [address] [place] [address] Glucose Glucometer (BldC) [M ass/Vol]on 09-03-2024 Glucose [Mass/Vol] 140 mg/dL High 65-99 [facility] Glucose [Mass/Vol] 142 mg/dL High 65-99 [facility] Glucose [Mass/Vol] 156 mg/dL High 65-99 [facility] Glucose [Mass/Vol] 126 mg/dL High 65-99 [facility] Glucose [Mass/Vol] 135 mg/dL High 65-99 [facility] MAGNESIUMon 09-03-2024 Magnesium [Mass/Vol] 2.3 mg/dL Normal 1.8-2.6 [facility] Comment on above: Performed By: #### C MEI, PINR, 84516-0, CMP, , 1 #### [facility] ([id number]) [address], [address] [place] [address] PHOSPHORUSon 09-03-2024 Phosphate [Mass/Vol] 2.8 mg/dL Normal 2.4-4.9 [facility] Comment on above: Performed By: #### C BCA, PINR, 85712-1, CMP, , 1 #### [facility] ([id number]) [address], [address] [place] [address] BASIC METABOLIC PANLon 09-02 Anion gap [Moles/Vol] 7 mmol/L Normal 5-15 [facility] Comment on above: Performed By: #### C BCA, PINR, 62686-2, CMP, , 2776- #### [facility] ([id number]) [address], [address] [place] [address] Calcium [Mass/Vol] 7.6 mg/dL Low 8.5-10.5 [facility] Comment on above: Performed By: #### C BCA, PINR, 32073-4, CMP, , 2776- #### [facility] ([id number]) [address], [facility] [address] [place] [address] Chloride [Moles/Vol] 107 mmol/L Normal 98-109 [facility] Comment on above: Performed By: #### C BCA, PINR, 71846-6, CMP, , 2776- #### [facility] ([id number]) [address], [address] [place] [address] CO2 [Moles/Vol] 26 mmol/L Normal 22-32 [facility] Comment on above: Performed By: #### C BCA, PINR, 57739-2, CMP, , 2776-08 #### [facility] ([id number]) [address], [address] [place] [address] Creatinine [Mass/Vol] 0.49 mg/dL Normal 0.40-1.00 [facility] Comment on above: Result Comment: METH OD TRACEABLE TO IDMS STANDARD Performed By: #### C BCA, PINR, 35084-0, CMP, , 2776- #### [facility] ([id number]) [address], [address] [place] [address] eGFR (CKD-EPI) NON-RACE DEPENDENT >90 Normal >59 [facility] Comment on above: Result Comment: Reported eGFR is based on the CKD-EPI 2020 equation that does not use a race coefficient. Performed By: #### C BCA, PINR, 54380-2, CMP, 55213-0, 2776- #### [facility] ([id number]) [address], [address] [place] [address] Glucose [Mass/Vol] 170 mg/dL High 65-99 [facility] Comment on above: Performed By: #### C BCA, PINR, 72649-8, CMP, 63115-2, 2776- #### [facility] ([id number]) [address], [address] [place] [address] Potassium [Moles/Vol] 3.5 mmol/L Normal 3.5-5.0 [facility] Comment on above: Performed By: #### C BCA, PINR, 29488-7, CMP, , 2776-08 #### [facility] ([id number]) [address], [address] [place] [address] Sodium [Moles/Vol] 140 mmol/L Normal 134-146 [facility] Comment on above: Performed By: #### C BCA, PINR, 90175-8, CMP, , 2776-08 #### [facility] ([id number]) [address], [address] [place] [address] Urea nitrogen [Mass/Vol] 17 mg/dL Normal 5-27 [facility] Comment on above: Performed By: #### C BCA, PINR, 96627-3, CMP, , 2776-08 #### [facility] ([id number]) [address], [address] [place] [address] COMPLETE BLOOD COUNTon 09-02 Erythrocyte distribution width (RBC) [Ratio] 14.5 % Normal 11.5-15.0 [facility] Comment on above: Performed By: #### C BCA, PINR, 99503-5, CMP, 75812-0, 2776-1 #### [facility] ([id number]) [address], [address] [place] [address] Hematocrit (Bld) [Volume fraction] 28.4 % Low 35-47 [facility] Comment on above: Performed By: #### C BCA, PINR, 58286-8, CMP, , 2776-08 #### [facility] ([id number]) [address], [address] [place] [address] Hemoglobin (Bld) [Mass/Vol] 9.7 g/dL Low 11.7-15.5 [facility] Comment on above: Performed By: #### C BCA, PINR, 33070-7, CMP, , 2776-08 #### [facility] ([id number]) [address], [address] [place] [address] MCH (RBC) [Entitic mass] 31.8 pg Normal 27-34 [facility] Comment on above: Performed By: #### C BCA, PINR, 68055-5, CMP, , 2776-08 #### [facility] ([id number]) [address], [address] [place] [address] MCHC (RBC) [Mass/Vol] 34.3 g/dL Normal 32-36 [facility] Comment on above: Performed By: #### C BCA, PINR, 13775-5, CMP, , 2776-08 #### [facility] ([id number]) [address], [address] [place] [address] MCV (RBC) [Entitic vol] 93 fL Normal 80-100 [facility] Comment on above: Performed By: #### C BCA, PINR, 87225-8, CMP, , 2776-08 #### [facility] ([id number]) [address], [address] [place] [address] Platelet mean volume (Bld) [Entitic vol] 8.9 fL Normal 7-12 [facility] Comment on above: Performed By: #### C BCA, PINR, 00599-0, CMP, , 2776-08 #### [facility] ([id number]) [address], [address] [place] [address] Platelets (Bld) [#/Vol] 295 10*3/uL Normal 150-450 [facility] Comment on above: Performed By: #### C BCA, PINR, 98375-7, CMP, , 2776-08 #### [facility] ([id number]) [address], [address] [place] [address] RBC COUNT 3.07 X10E12/L Low 3.80-5.20 [facility] Comment on above: Performed By: #### C BCA, PINR, 06573-1, CMP, , 2776-08 #### [facility] ([id number]) [address], [address] [place] [address] WBC (Bld) [#/Vol] 9.6 10*3/uL Normal 4.0-11.0 [facility] Comment on above: Performed By: #### C BCA, PINR, 50100-4, CMP, , 1 #### [facility] ([id number]) [address], [address] [place] [address] Glucose Glucometer (BldC) [M ass/Vol]on 09-02-2024 Glucose [Mass/Vol] 116 mg/dL High 65-99 [facility] Glucose [Mass/Vol] 157 mg/dL High 65-99 [facility] Glucose [Mass/Vol] 168 mg/dL High 65-99 [facility] MAGNESIUMon 09-02-2024 Magnesium [Mass/Vol] 2.0 mg/dL Normal 1.8-2.6 [facility] Comment on above: Performed By: #### C BCA, PINR, 34654-7, CMP, , 2776-08 #### [facility] ([id number]) [address], [address] [place] [address] PHOSPHORUSon 09-02-2024 Phosphate [Mass/Vol] 2.9 mg/dL Normal 2.4-4.9 [facility] Comment on above: Performed By: #### C BCA, PINR, 24051-8, CMP, , 2776-08 #### [facility] ([id number]) [address], [address] [place] [address] Phosphate [Mass/Vol] 1.9 mg/dL Low 2.4-4.9 [facility] Comment on above: Performed By: #### C BCA, PINR, 55477-9, CMP, , 2776-08 #### [facility] ([id number]) [address], [address] [place] [address] POTASSIUMon 09-02-2024 Potassium [Moles/Vol] 3.7 mmol/L Normal 3.5-5.0 [facility] Comment on above: Performed By: #### C BCA, PINR, 98791-4, CMP, , 2776-08 #### [facility] ([id number]) [address], [address] [place] [address] BASIC METABOLIC PANLon 09-01 Anion gap [Moles/Vol] 6 mmol/L Normal 5-15 [facility] Comment on above: Performed By: #### C BCA, PINR, 06502-5, CMP, , 2776-08 #### [facility] ([id number]) [address], [address] [place] [address] Calcium [Mass/Vol] 7.5 mg/dL Low 8.5-10.5 [facility] Comment on above: Performed By: #### C BCA, PINR, 00584-0, CMP, , 2776-08 #### [facility] ([id number]) [address], [address] [place] [address] Chloride [Moles/Vol] 105 mmol/L Normal 98-109 [facility] Comment on above: Performed By: #### C BCA, PINR, 66983-2, CMP, , 2776-08 #### [facility] ([id number]) [address], [address] [place] [address] CO2 [Moles/Vol] 27 mmol/L Normal 22-32 [facility] Comment on above: Performed By: #### C BCA, PINR, 39314-9, CMP, , 2776-08 #### [facility] ([id number]) [address], [address] [place] [address] Creatinine [Mass/Vol] 0.61 mg/dL Normal 0.40-1.00 [facility] Comment on above: Result Comment: METH OD TRACEABLE TO IDMS STANDARD Performed By: #### C BCA, PINR, 49485-4, CMP, , 2776-08 #### [facility] ([id number]) [address], [address] [place] [address] GFR/1.73 sq M.predicted among non-blacks MDRD (S/P/Bld) [Vol rate/Area] 85 mL/min/{1.73_m2} Normal >59 [facility] Comment on above: Result Comment: Reported eGFR is based on the CKD-EPI 2020 equation that does not use a race coefficient. Performed By: #### C BCA, PINR, 03918-1, CMP, , 2776-08 #### [facility] ([id number]) [address], [address] [place] [address] Glucose [Mass/Vol] 147 mg/dL High 65-99 [facility] Comment on above: Performed By: #### C BCA, PINR, 89249-3, CMP, , 2776- #### [facility] ([id number]) [address], [address] [place] [address] Potassium [Moles/Vol] 3.7 mmol/L Normal 3.5-5.0 [facility] Comment on above: Performed By: #### C BCA, PINR, 87506-4, CMP, , 2776- #### [facility] ([id number]) [address], [address] [place] [address] Sodium [Moles/Vol] 138 mmol/L Normal 134-146 [facility] Comment on above: Performed By: #### C BCA, PINR, 47039-0, CMP, , 2776-08 #### [facility] ([id number]) [address], [address] [place] [address] Urea nitrogen [Mass/Vol] 16 mg/dL Normal 5-27 [facility] Comment on above: Performed By: #### C BCA, PINR, 37045-3, CMP, , 2776-08 #### [facility] ([id number]) [address], [address] [place] [address] COMPLETE BLOOD COUNTon 09-01 Erythrocyte distribution width (RBC) [Ratio] 13.9 % Normal 11.5-15.0 [facility] Comment on above: Performed By: #### C BCA, PINR, 49844-3, CMP, , 2776- #### [facility] ([id number]) [address] [address] [place] [address] Hematocrit (Bld) [Volume fraction] 29.4 % Low 35-47 [facility] Comment on above: Performed By: #### C BCA, PINR, 30375-8, CMP, , 2776-08 #### [facility] ([id number]) [address] [address] [place] [address] Hemoglobin (Bld) [Mass/Vol] 10.0 g/dL Low 11.7-15.5 [facility] Comment on above: Performed By: #### C BCA, PINR, 53018-4, CMP, , 2776-08 #### [facility] ([id number]) [address], [facility] [address] [place] [address] MCH (RBC) [Entitic mass] 31.0 pg Normal 27-34 [facility] Comment on above: Performed By: #### C BCA, PINR, 04835-2, CMP, , 2776-08 #### [facility] ([id number]) [address] [address] [place] [address] MCHC (RBC) [Mass/Vol] 34.0 g/dL Normal 32-36 [facility] Comment on above: Performed By: #### C BCA, PINR, 04342-8, CMP, , 2776-08 #### [facility] ([id number]) [address] [address] [place] [address] MCV (RBC) [Entitic vol] 91 fL Normal 80-100 [facility] Comment on above: Performed By: #### C BCA, PINR, 82572-4, CMP, , 2776-08 #### [facility] ([id number]) [address] [address] [place] [address] Platelet mean volume (Bld) [Entitic vol] 9.1 fL Normal 7-12 [facility] Comment on above: Performed By: #### C BCA, PINR, 70220-9, CMP, , 2776-08 #### [facility] ([id number]) [address] [address] [place] [address] Platelets (Bld) [#/Vol] 316 10*3/uL Normal 150-450 [facility] Comment on above: Performed By: #### C BCA, PINR, 53445-0, CMP, , 2776-08 #### [facility] ([id number]) [address], [address] [place] [address] RBC COUNT 3.22 X10E12/L Low 3.80-5.20 [facility] Comment on above: Performed By: #### C BCA, PINR, 72821-0, CMP, , 2776-08 #### [facility] ([id number]) [address], [address] [place] [address] WBC (Bld) [#/Vol] 15.8 10*3/uL High 4.0-11.0 [facility] Comment on above: Performed By: #### C BCA, PINR, 09833-8, CMP, , 2776-08 #### [facility] ([id number]) [address], [address] [place] [address] Calcium.ionized (Bld) [Mass/ Vol]on 09-01-2024 IONIZED CALCIUM 4.7 mg/dL Normal 4.5-5.3 [facility] Comment on above: Performed By: #### C BCA, PINR, 77940-6, CMP, , 2776-08 #### [facility] ([id number]) [address], [address] [place] [address] IONIZED CALCIUM 4.6 mg/dL Normal 4.5-5.3 [facility] Comment on above: Performed By: #### C BCA, PINR, 95532-1, CMP, , 2776-08 #### [facility] ([id number]) [address], [address] [place] [address] Glucose Glucometer (BldC) [M ass/Vol]on 09-01-2024 Glucose [Mass/Vol] 187 mg/dL High 65-99 [facility] Glucose [Mass/Vol] 190 mg/dL High 65-99 [facility] Glucose [Mass/Vol] 139 mg/dL High 65-99 [facility] Glucose [Mass/Vol] 152 mg/dL High 65-99 [facility] Glucose [Mass/Vol] 135 mg/dL High 65-99 [facility] MAGNESIUMon 09-01-2024 Magnesium [Mass/Vol] 2.1 mg/dL Normal 1.8-2.6 [facility] Comment on above: Performed By: #### C MEI, PINDony, 82854-7, CONY, 2776-08 #### [facility] ([id number]) [address], [address] [place] [address] Magnesium Ionized ISE (Bld) [Moles/Vol]on 09-01-2024 Magnesium [Moles/Vol] 0.68 mmol/L Normal 0.45-0.74 [facility] Comment on above: Result Comment: NEW REFERENCE RANGE Performed By: #### C MEI, PINR, 63700-5, CONY, 2776-08 #### [facility] ([id number]) [address], [address] [place] [address] PHOSPHORUSon 09-01-2024 Phosphate [Mass/Vol] 2.3 mg/dL Low 2.4-4.9 [facility] Comment on above: Performed By: #### C MEI, PINR, 64015-8, CMP, 2776-08 #### [facility] ([id number]) [address] [place] [address] POTASSIUMon 09-01-2024 Potassium [Moles/Vol] 4.4 mmol/L Normal 3.5-5.0 [facility] Comment on above: Performed By: #### C MEI, PINR, 84864-0, CMP, , 2776-08 #### [facility] ([id number]) [address], [address] [place] [address] Potassium [Moles/Vol] 6.6 mmol/L Critically high 3.5-5.0 [facility] Comment on above: Performed By: #### C BCA, PINR, 98996-9, CMP, , 2776-08 #### [facility] ([id number]) [address] [facility], [address] [place] [address] ALT No additional P-5'-P [Ca talytic activity/Vol]on 08-31-2024 ALT [Catalytic activity/Vol] 7 U/L Normal 0-31 [facility] Comment on above: Performed By: #### C BCA, PINR, 44899-7, CMP, , 2776-08 #### [facility] ([id number]) [address], [address] [place] [address] BASIC METABOLIC PANLon 08-31 Anion gap [Moles/Vol] 7 mmol/L Normal 5-15 [facility] Comment on above: Performed By: #### C BCA, PINR, 78358-8, CMP, , 2776-08 #### [facility] ([id number]) [address] [facility], [address] [place] [address] Calcium [Mass/Vol] 7.6 mg/dL Low 8.5-10.5 [facility] Comment on above: Performed By: #### C BCA, PINR, 43812-2, CMP, , 2776-08 #### [facility] ([id number]) [address], [address] [place] [address] Chloride [Moles/Vol] 101 mmol/L Normal 98-109 [facility] Comment on above: Performed By: #### C BCA, PINR, 76229-6, CMP, , 2776-08 #### [facility] ([id number]) [address], [address] [place] [address] CO2 [Moles/Vol] 26 mmol/L Normal 22-32 [facility] Comment on above: Performed By: #### C BCA, PINR, 17804-8, CMP, , 2776-08 #### [facility] ([id number]) [address], [address] [place] [address] Creatinine [Mass/Vol] 0.77 mg/dL Normal 0.40-1.00 [facility] Comment on above: Result Comment: METH OD TRACEABLE TO IDMS STANDARD Performed By: #### C BCA, PINR, 81457-3, CMP, , 2776-08 #### [facility] ([id number]) [address], [facility] [address] [place] [address] GFR/1.73 sq M.predicted among non-blacks MDRD (S/P/Bld) [Vol rate/Area] 74 mL/min/{1.73_m2} Normal >59 [facility] Comment on above: Result Comment: Reported eGFR is based on the CKD-EPI 2020 equation that does not use a race coefficient. Performed By: #### C BCA, PINR, 13017-7, CMP, , 2776-08 #### [facility] ([id number]) [address], [address] [place] [address] Glucose [Mass/Vol] 92 mg/dL Normal 65-99 [facility] Comment on above: Performed By: #### C BCA, PINR, 76501-0, CMP, , 2776-08 #### [facility] ([id number]) [address], [address] [place] [address] Potassium [Moles/Vol] 3.9 mmol/L Normal 3.5-5.0 [facility] Comment on above: Performed By: #### C BCA, PINR, 33473-7, CMP, , 2776-08 #### [facility] ([id number]) [address], [address] [place] [address] Sodium [Moles/Vol] 134 mmol/L Normal 134-146 [facility] Comment on above: Performed By: #### C BCA, PINR, 51268-5, CMP, , 2776- #### [facility] ([id number]) [address], [address] [place] [address] Urea nitrogen [Mass/Vol] 19 mg/dL Normal 5-27 [facility] Comment on above: Performed By: #### C BCA, PINR, 81320-4, CMP, , 2776-08 #### [facility] ([id number]) [address], [address] [place] [address] BILIRUBIN,TOTALon 08-31-2024 Bilirubin [Mass/Vol] 0.6 mg/dL Normal 0.3-1.2 [facility] Comment on above: Performed By: #### C BCA, PINR, 83838-9, CMP, , 2776-08 #### [facility] ([id number]) [address], [address] [place] [address] COMPLETE BLOOD COUNTon 08-31 Erythrocyte distribution width (RBC) [Ratio] 13.8 % Normal 11.5-15.0 [facility] Comment on above: Performed By: #### C BCA, PINR, 24447-0, CMP, , 2776-08 #### [facility] ([id number]) [address], [address] [place] [address] Hematocrit (Bld) [Volume fraction] 31.1 % Low 35-47 [facility] Comment on above: Performed By: #### C BCA, PINR, 14114-9, CMP, , 2776-08 #### [facility] ([id number]) [address], [address] [place] [address] Hemoglobin (Bld) [Mass/Vol] 10.6 g/dL Low 11.7-15.5 [facility] Comment on above: Performed By: #### C BCA, PINR, 87716-3, CMP, , 2776-08 #### [facility] ([id number]) [address], [facility] [address] [place] [address] MCH (RBC) [Entitic mass] 31.4 pg Normal 27-34 [facility] Comment on above: Performed By: #### C BCA, PINR, 42550-2, CMP, , 2776-08 #### [facility] ([id number]) [address] [address] [place] [address] MCHC (RBC) [Mass/Vol] 34.1 g/dL Normal 32-36 [facility] Comment on above: Performed By: #### C BCA, PINR, 13893-3, CMP, , 2776-08 #### [facility] ([id number]) [address] [address] [place] [address] MCV (RBC) [Entitic vol] 92 fL Normal 80-100 [facility] Comment on above: Performed By: #### C BCA, PINR, 43454-5, CMP, , 2776-08 #### [facility] ([id number]) [address], [address] [place] [address] Platelet mean volume (Bld) [Entitic vol] 9.2 fL Normal 7-12 [facility] Comment on above: Performed By: #### C BCA, PINR, 10660-5, CMP, , 2776-08 #### [facility] ([id number]) [address] [address] [place] [address] Platelets (Bld) [#/Vol] 253 10*3/uL Normal 150-450 [facility] Comment on above: Performed By: #### C BCA, PINR, 21553-6, CMP, , 2776-08 #### [facility] ([id number]) [address] [place] [address] RBC COUNT 3.38 X10E12/L Low 3.80-5.20 [facility] Comment on above: Performed By: #### C BCA, PINR, 46826-7, CMP, , 2776-08 #### [facility] ([id number]) [address], [address] [place] [address] WBC (Bld) [#/Vol] 12.1 10*3/uL High 4.0-11.0 [facility] Comment on above: Performed By: #### C BCA, PINR, 82443-9, CMP, , 2776-08 #### [facility] ([id number]) [address], [address] [place] [address] Calcium.ionized (Bld) [Mass/ Vol]on 08-31-2024 IONIZED CALCIUM 4.7 mg/dL Normal 4.5-5.3 [facility] Comment on above: Performed By: #### C BCA, PINR, 25144-0, CMP, , 2776-08 #### [facility] ([id number]) [address], [address] [place] [address] Glucose Glucometer (BldC) [M ass/Vol]on 08-31-2024 Glucose [Mass/Vol] 103 mg/dL High 65-99 [facility] Glucose [Mass/Vol] 98 mg/dL Normal 65-99 [facility] Glucose [Mass/Vol] 87 mg/dL Normal 65-99 [facility] MAGNESIUMon 08-31-2024 Magnesium [Mass/Vol] 1.9 mg/dL Normal 1.8-2.6 [facility] Comment on above: Performed By: #### C BCA, PINR, 13621-0, CMP, , 2776-08 #### [facility] ([id number]) [address], [address] [place] [address] Magnesium Ionized ISE (Bld) [Moles/Vol]on 08-31-2024 Magnesium [Moles/Vol] 0.70 mmol/L Normal 0.45-0.74 [facility] Comment on above: Result Comment: NEW REFERENCE RANGE Performed By: #### C BCA, PINR, 10802-9, CMP, , 2776-08 #### [facility] ([id number]) [address], [address] [place] [address] TRIGLYCERIDEon 08-31-2024 Triglyceride [Mass/Vol] 105 mg/dL Normal 27-[address] [facility] Comment on above: Performed By: #### C BCA, PINR, 83032-3, CMP, , 2776-08 #### [facility] ([id number]) [address], [address] [place] [address] BASIC METABOLIC PANLon 08-30 Anion gap [Moles/Vol] 10 mmol/L Normal 5-15 [facility] Comment on above: Performed By: #### C BC, BMP, ####[facility] ([id number])[address] [place] [address] Calcium [Mass/Vol] 7.5 mg/dL Low 8.5-10.5 [facility] Comment on above: Performed By: #### C BC, BMP, 23228-4 ####[facility] ([id number])[address], [address] [place] [address] Chloride [Moles/Vol] 102 mmol/L Normal 98-109 [facility] Comment on above: Performed By: #### C [facility], ####[facility] ([id number])[address] [address], [place] [address] CO2 [Moles/Vol] 21 mmol/L Low 22-32 [facility] Comment on above: Performed By: #### PADMINI LUCAS, ####[facility] ([id number])[address] [address], [place] [address] Creatinine [Mass/Vol] 0.75 mg/dL Normal 0.40-1.00 [facility] Comment on above: Result Comment: METH OD TRACEABLE TO IDMS STANDARD Performed By: #### PADMINI LUCAS, ####[facility] ([id number])[address] [address], [place] [address] GFR/1.73 sq M.predicted among non-blacks MDRD (S/P/Bld) [Vol rate/Area] 76 mL/min/{1.73_m2} Normal >59 [facility] Comment on above: Result Comment: Reported eGFR is based on the CKD-EPI 2020 equation that does not use a race coefficient. Performed By: #### Gely YUEN [facility], ####[facility] ([id number])[address] [address], [place] [address] Glucose [Mass/Vol] 81 mg/dL Normal 65-99 [facility] Comment on above: Performed By: #### Gely YUEN [facility], ####[facility] ([id number])[address] [address], [place] [address] Potassium [Moles/Vol] 4.1 mmol/L Normal 3.5-5.0 [facility] Comment on above: Performed By: #### PADMINI LUCAS, ####[facility] ([id number])[address] [address], [place] [address] Sodium [Moles/Vol] 133 mmol/L Low 134-146 [facility] Comment on above: Performed By: #### C PADMINI YUEN, ####[facility] ([id number])[address], [place] [address] Urea nitrogen [Mass/Vol] 21 mg/dL Normal 5-27 [facility] Comment on above: Performed By: #### PADMINI LUCAS, ####[facility] ([id number])[address], [place] [address] COMPLETE BLOOD COUNTon 08-30 Erythrocyte distribution width (RBC) [Ratio] 14.3 % Normal 11.5-15.0 [facility] Comment on above: Performed By: #### PADMINI LUCAS, ####[facility] ([id number])[address], [place] [address] Hematocrit (Bld) [Volume fraction] 34.8 % Low 35-47 [facility] Comment on above: Performed By: #### PADMINI LUCAS, ####[facility] ([id number])[address] [address], [place] [address] Hemoglobin (Bld) [Mass/Vol] 11.6 g/dL Low 11.7-15.5 [facility] Comment on above: Performed By: #### PADMINI LUCAS, ####[facility] ([id number])[address] [address], [place] [address] MCH (RBC) [Entitic mass] 30.6 pg Normal 27-34 [facility] Comment on above: Performed By: #### PADMINI LUCAS, ####[facility] ([id number])[address] [address] [place] [address] MCHC (RBC) [Mass/Vol] 33.2 g/dL Normal 32-36 [facility] Comment on above: Performed By: #### PADMINI LUCAS, ####[facility] ([id number])[address], [place] [address] MCV (RBC) [Entitic vol] 92 fL Normal 80-100 [facility] Comment on above: Performed By: #### PADMINI LUCAS, ####[facility] ([id number])[address] [place] [address] Platelet mean volume (Bld) [Entitic vol] 9.2 fL Normal 7-12 [facility] Comment on above: Performed By: #### PADMINI LUCAS, ####[facility] ([id number])[address] [place] [address] Platelets (Bld) [#/Vol] 213 10*3/uL Normal 150-450 [facility] Comment on above: Performed By: #### PADMINI LUCAS, ####[facility] ([id number])[address], [place] [address] RBC COUNT 3.78 X10E12/L Low 3.80-5.20 [facility] Comment on above: Performed By: #### PADMINI LUCAS, ####[facility] ([id number])[address] [place] [address] WBC (Bld) [#/Vol] 13.0 10*3/uL High 4.0-11.0 [facility] Comment on above: Performed By: #### PADMINI LUCAS, ####[facility] ([id number])[address], [address], [place] [address] CT ABDOMEN AND PELVIS W CONT on 08-30-2024 CT ABDOMEN AND PELVIS W CONT CT ABDOMEN AND PELVIS W CONT CLINICAL INFORMATION: Acute nonlocalized abdominal pain. Recent exploratory laparotomy with sigmoid colectomy, and colostomy. TECHNIQUE: Multidetector CT scan of the abdomen and pelvis was performed following the uneventful administration of 100mL Omni 300. Oral Omnipaque was also administered. Axial acquisition with axial, coronal and sagittal reformatted images obtained and reviewed. Automated exposure control was utilized. All CT scans at this facility use dose modulation, iterative reconstruction, and/or weight based dosing when appropriate to reduce radiation dose to as low as reasonably achievable. COMPARISON: 08/21/2024. FINDINGS: Lower chest: Moderate bilateral pleural effusions slightly larger on the right. Bilateral lower lobe compressive atelectasis. Hepatobiliary: Previous cholecystectomy. Mild prominence of central bile ducts, similar to previous study. No liver mass lesions noted. Spleen, pancreas, and adrenal glands: Atrophic/fatty replaced pancreas, no masses. Prominence of CBD as well as intrahepatic bile ducts likely related to previous cholecystectomy (reservoir effect). Normal-appearing spleen. Bilateral unremarkable adrenal glands. Genitourinary: Both kidneys unremarkable. Small partially exophytic low-attenuation lesion consistent with simple cyst in the right kidney. Urinary bladder moderately distended and unremarkable, containing a small amount of air likely due to recent Corder[place]. Hysterectomy. Bowel and mesentery: Dione's pouch with suture line in the upper pelvis. No fluid noted around the rectal stump. SID drain enters the right lower quadrant and traverses through the pelvis, with the tip lying in the region of the left lower quadrant. Left lower quadrant ostomy slightly left of midline. Ostomy site is unremarkable, no fluid collections. Stomach is significantly distended with contrast containing fluid. There is also reflux of contrast containing fluid into the esophagus, extending all the way up to the start of imaging in the mid/lower thorax. Multiple dilated small bowel loops containing ingested oral contrast containing fluid, which appear to be mainly proximal/jejunal. There is no obvious focal point of obstruction noted. No pneumatosis. No significant free fluid collection or free air. Multiple air-fluid levels are noted within small bowel and stomach. Retroperitoneum, pelvis and vascular: No retroperitoneal mass or adenopathy. No pelvic mass or adenopathy. Soft tissues and bones: Coarse calcifications in left breast tissue. No concerning soft tissue abnormalities. Diffuse anasarca is present in the lower abdomen and flanks. Severe degenerative changes in the lumbar spine including multilevel fusion. No concerning bone lesions noted. IMPRESSION: 1. Dilated stomach proximal small bowel loops, no focal point of obstruction is identified. Findings may reflect postoperative ileus. There is no free air or significant free fluid identified. No abnormality (fat stranding, fluid) noted around the ligated rectal stump. 2. Previous cholecystectomy with dilated intrahepatic bile ducts and CBD, likely reservoir effect. Finalized by Chaim Spencer MD on 08/30/2024 2:15 PM Normal [facility] Glucose Glucometer (BldC) [M ass/Vol]on 08-30-2024 Glucose [Mass/Vol] 78 mg/dL Normal 65-99 [facility] MAGNESIUMon 08-30-2024 Magnesium [Mass/Vol] 2.0 mg/dL Normal 1.8-2.6 [facility] Comment on above: Performed By: #### C BCA, PINR, 32097-0, CMP, 44603-5, 2777-1 #### [facility] ([id number]) [address], [address] [place] [address] Magnesium [Mass/Vol] 1.8 mg/dL Normal 1.8-2.6 [facility] Comment on above: Performed By: #### C BC, BMP, 71896-9 ####[facility] ([id number])[address], [address] [place] [address] XR ABDOMEN AP 1 VWon 024 XR ABDOMEN AP 1 VW XR ABDOMEN AP 1 VW ABDOMEN RADIOGRAPH DATE: 08/30/2024 5:55 PM CLINICAL INDICATION: Evaluate NG tube placement TECHNIQUE: Multiple abdominal radiographs presented. COMPARISON: 08/21/2024 FINDINGS: Entire abdomen was not included on the image Lung bases: Lung bases are clear. Bowel: Bowel gas pattern nonobstructed. No obvious free air. Bones / soft tissue: Bony structures are unremarkable Other: Nasogastric tube projects below the diaphragm in the expected location of the stomach. Multiple leads overlie the patient. IMPRESSION: 1. Nasogastric tube projects below the diaphragm into the epigastric region, overlying the stomach. Finalized by Chaim Spencer MD on 08/30/2024 6:42 PM Normal [facility] BASIC METABOLIC PANLon 08-29 Anion gap [Moles/Vol] 11 mmol/L Normal 5-15 [facility] Comment on above: Performed By: #### Gely YUEN, PADMINI, ####[facility] ([id number])[address], [address] [place] [address] Calcium [Mass/Vol] 7.5 mg/dL Low 8.5-10.5 [facility] Comment on above: Performed By: #### PADMINI LUCAS, ####[facility] ([id number])[address], [address] [place] [address] Chloride [Moles/Vol] 101 mmol/L Normal 98-109 [facility] Comment on above: Performed By: #### PADMINI LUCAS, ####[facility] ([id number])[address], [address] [place] [address] CO2 [Moles/Vol] 25 mmol/L Normal 22-32 [facility] Comment on above: Performed By: #### PADMINI LUCAS, ####[facility] ([id number])[address], [address] [place] [address] Creatinine [Mass/Vol] 0.70 mg/dL Normal 0.40-1.00 [facility] Comment on above: Result Comment: METH OD TRACEABLE TO IDMS STANDARD Performed By: #### PADMINI LUCAS, ####[facility] ([id number])[address], [address] [place] [address] GFR/1.73 sq M.predicted among non-blacks MDRD (S/P/Bld) [Vol rate/Area] 83 mL/min/{1.73_m2} Normal >59 [facility] Comment on above: Result Comment: Reported eGFR is based on the CKD-EPI 2020 equation that does not use a race coefficient. Performed By: #### C ALPA [facility], ####[facility] ([id number])[address] [place] [address] Glucose [Mass/Vol] 88 mg/dL Normal 65-99 [facility] Comment on above: Performed By: #### C PADMINI YUEN, ####[facility] ([id number])[address] [address], [place] [address] Potassium [Moles/Vol] 3.7 mmol/L Normal 3.5-5.0 [facility] Comment on above: Performed By: #### C PADMINI YUEN, ####[facility] ([id number])[address] [address], [place] [address] Sodium [Moles/Vol] 137 mmol/L Normal 134-146 [facility] Comment on above: Performed By: #### PADMINI LUCAS, ####[facility] ([id number])[address] [address], [place] [address] Urea nitrogen [Mass/Vol] 19 mg/dL Normal 5-27 [facility] Comment on above: Performed By: #### PADMINI LUCAS, ####[facility] ([id number])[address] [address] COMPLETE BLOOD COUNTon 08-29 Erythrocyte distribution width (RBC) [Ratio] 14.2 % Normal 11.5-15.0 [facility] Comment on above: Performed By: #### PADMINI LUCAS, ####[facility] ([id number])[address] [address], [place] [address] Hematocrit (Bld) [Volume fraction] 30.6 % Low 35-47 [facility] Comment on above: Performed By: #### C PADMINI YUEN, ####[facility] ([id number])[address], [place] [address] Hemoglobin (Bld) [Mass/Vol] 10.5 g/dL Low 11.7-15.5 [facility] Comment on above: Performed By: #### PADMINI LUCAS, ####[facility] ([id number])[address], [place] [address] MCH (RBC) [Entitic mass] 31.4 pg Normal 27-34 [facility] Comment on above: Performed By: #### PADMINI LUCAS, ####[facility] ([id number])[address], [place] [address] MCHC (RBC) [Mass/Vol] 34.3 g/dL Normal 32-36 [facility] Comment on above: Performed By: #### PADMINI LUCAS, ####[facility] ([id number])[address], [place] [address] MCV (RBC) [Entitic vol] 91 fL Normal 80-100 [facility] Comment on above: Performed By: #### PADMINI LUCAS, ####[facility] ([id number])[address], [address], [place] [address] Platelet mean volume (Bld) [Entitic vol] 9.5 fL Normal 7-12 [facility] Comment on above: Performed By: #### Gely YUEN, BMP, ####[facility] ([id number])[address], [place] [address] Platelets (Bld) [#/Vol] 196 10*3/uL Normal 150-450 [facility] Comment on above: Performed By: #### PADMINI LUCAS, ####[facility] ([id number])[address] [place] [address] RBC COUNT 3.35 X10E12/L Low 3.80-5.20 [facility] Comment on above: Performed By: #### C ALPA [facility], ####[facility] ([id number])[address] [place] [address] WBC (Bld) [#/Vol] 13.9 10*3/uL High 4.0-11.0 [facility] Comment on above: Performed By: #### C ALPA, PADMINI, ####[facility] ([id number])[address], [place] [address] Glucose Glucometer (BldC) [M ass/Vol]on 08-29-2024 Glucose [Mass/Vol] 91 mg/dL Normal 65-99 [facility] MAGNESIUMon 08-29-2024 Magnesium [Mass/Vol] 2.0 mg/dL Normal 1.8-2.6 [facility] Comment on above: Performed By: #### C ALPA, [facility], ####[facility] ([id number])[address] [place] [address] BASIC METABOLIC PANLon 08-28 Anion gap [Moles/Vol] 8 mmol/L Normal 5-15 [facility] Comment on above: Performed By: #### A BG #### [facility] ([id number]) [address] [place] [address] Calcium [Mass/Vol] 7.5 mg/dL Low 8.5-10.5 [facility] Comment on above: Performed By: #### A BG #### [facility] ([id number]) [address] [place] [address] Chloride [Moles/Vol] 103 mmol/L Normal 98-109 [facility] Comment on above: Performed By: #### A BG #### [facility] ([id number]) [address] [place] [address] CO2 [Moles/Vol] 25 mmol/L Normal 22-32 [facility] Comment on above: Performed By: #### A BG #### [facility] ([id number]) [address] [place] [address] Creatinine [Mass/Vol] 0.64 mg/dL Normal 0.40-1.00 [facility] Comment on above: Result Comment: METH OD TRACEABLE TO IDMS STANDARD Performed By: #### A BG #### [facility] ([id number]) [address] [place] [address] GFR/1.73 sq M.predicted among non-blacks MDRD (S/P/Bld) [Vol rate/Area] 84 mL/min/{1.73_m2} Normal >59 [facility] Comment on above: Result Comment: Reported eGFR is based on the CKD-EPI 2020 equation that does not use a race coefficient. Performed By: #### A BG #### [facility] ([id number]) [address] [place] [address] Glucose [Mass/Vol] 72 mg/dL Normal 65-99 [facility] Comment on above: Performed By: #### A BG #### [facility] ([id number]) [address] [place] [address] Potassium [Moles/Vol] 4.3 mmol/L Normal 3.5-5.0 [facility] Comment on above: Performed By: #### A BG #### [facility] ([id number]) [address] [place] [address] Sodium [Moles/Vol] 136 mmol/L Normal 134-146 [facility] Comment on above: Performed By: #### A BG #### [facility] ([id number]) [address] [place] [address] Urea nitrogen [Mass/Vol] 16 mg/dL Normal 5-27 [facility] Comment on above: Performed By: #### A BG #### [facility] ([id number]) [address] [place] [address] COMPLETE BLOOD COUNTon 08-28 Erythrocyte distribution width (RBC) [Ratio] 14.0 % Normal 11.5-15.0 [facility] Comment on above: Performed By: #### A BG #### [facility] ([id number]) [address] [place] [address] Hematocrit (Bld) [Volume fraction] 34.1 % Low 35-47 [facility] Comment on above: Performed By: #### A BG #### [facility] ([id number]) [address] [place] [address] Hemoglobin (Bld) [Mass/Vol] 11.7 g/dL Normal 11.7-15.5 [facility] Comment on above: Performed By: #### A BG #### [facility] ([id number]) [address] [place] [address] MCH (RBC) [Entitic mass] 31.3 pg Normal 27-34 [facility] Comment on above: Performed By: #### A BG #### [facility] ([id number]) [address] [place] [address] MCHC (RBC) [Mass/Vol] 34.4 g/dL Normal 32-36 [facility] Comment on above: Performed By: #### A BG #### [facility] ([id number]) [address] [place] [address] MCV (RBC) [Entitic vol] 91 fL Normal 80-[address] [facility] Comment on above: Performed By: #### A BG #### [facility] ([id number]) [address] [place] [address] Platelet mean volume (Bld) [Entitic vol] 9.0 fL Normal 7-12 [facility] Comment on above: Performed By: #### A BG #### [facility] ([id number]) [address] [place] [address] Platelets (Bld) [#/Vol] 169 10*3/uL Normal 150-450 [facility] Comment on above: Performed By: #### A BG #### [facility] ([id number]) [address] [place] [address] RBC COUNT 3.75 X10E12/L Low 3.80-5.20 [facility] Comment on above: Performed By: #### A BG #### [facility] ([id number]) [address] [place] [address] WBC (Bld) [#/Vol] 11.2 10*3/uL High 4.0-11.0 [facility] Comment on above: Performed By: #### A BG #### [facility] ([id number]) [address] [place] [address] Glucose Glucometer (dC) [M ass/Vol]on 08-28-2024 Glucose [Mass/Vol] 92 mg/dL Normal 65-99 [facility] Glucose [Mass/Vol] 94 mg/dL Normal 65-99 [facility] Glucose [Mass/Vol] 69 mg/dL Normal 65-99 [facility] Glucose [Mass/Vol] 70 mg/dL Normal 65-99 [facility] Glucose [Mass/Vol] 79 mg/dL Normal 65-99 [facility] MAGNESIUMon 08-28-2024 Magnesium [Mass/Vol] 2.1 mg/dL Normal 1.8-2.6 [facility] Comment on above: Performed By: #### A BG #### [facility] ([id number]) [address] [place] [address] Magnesium [Mass/Vol] 1.8 mg/dL Normal 1.8-2.6 [facility] Comment on above: Performed By: #### A BG #### [facility] ([id number]) [address] [place] [address] BASIC METABOLIC PANLon 08-27 Anion gap [Moles/Vol] 7 mmol/L Normal 5-15 [facility] Comment on above: Performed By: #### A BG #### [facility] ([id number]) [address] [place] [address] Calcium [Mass/Vol] 7.7 mg/dL Low 8.5-10.5 [facility] Comment on above: Performed By: #### A BG #### [facility] ([id number]) [address] [place] [address] Chloride [Moles/Vol] 102 mmol/L Normal 98-109 [facility] Comment on above: Performed By: #### A BG #### [facility] ([id number]) [address] [place] [address] CO2 [Moles/Vol] 26 mmol/L Normal 22-32 [facility] Comment on above: Performed By: #### A BG #### [facility] ([id number]) [address] [place] [address] Creatinine [Mass/Vol] 0.69 mg/dL Normal 0.40-1.00 [facility] Comment on above: Result Comment: METH OD TRACEABLE TO IDMS STANDARD Performed By: #### A BG #### [facility] ([id number]) [address] [place] [address] GFR/1.73 sq M.predicted among non-blacks MDRD (S/P/Bld) [Vol rate/Area] 83 mL/min/{1.73_m2} Normal >59 [facility] Comment on above: Result Comment: Reported eGFR is based on the CKD-EPI 2020 equation that does not use a race coefficient. Performed By: #### A BG #### [facility] ([id number]) [address] [place] [address] Glucose [Mass/Vol] 103 mg/dL High 65-99 [facility] Comment on above: Performed By: #### A BG #### [facility] ([id number]) [address] [place] [address] Potassium [Moles/Vol] 4.1 mmol/L Normal 3.5-5.0 [facility] Comment on above: Performed By: #### A BG #### [facility] ([id number]) [address] [place] [address] Sodium [Moles/Vol] 135 mmol/L Normal 134-146 [facility] Comment on above: Performed By: #### A BG #### [facility] ([id number]) [address] [place] [address] Urea nitrogen [Mass/Vol] 18 mg/dL Normal 5-27 [facility] Comment on above: Performed By: #### A BG #### [facility] ([id number]) [address] [place] [address] Anion gap [Moles/Vol] 3 mmol/L Low 5-15 [facility] Comment on above: Performed By: #### A BG #### [facility] ([id number]) [address] [place] [address] Calcium [Mass/Vol] 7.4 mg/dL Low 8.5-10.5 [facility] Comment on above: Performed By: #### A BG #### [facility] ([id number]) [address] [place] [address] Chloride [Moles/Vol] 103 mmol/L Normal 98-109 [facility] Comment on above: Performed By: #### A BG #### [facility] ([id number]) [address] [place] [address] CO2 [Moles/Vol] 28 mmol/L Normal 22-32 [facility] Comment on above: Performed By: #### A BG #### [facility] ([id number]) [address] [place] [address] Creatinine [Mass/Vol] 0.64 mg/dL Normal 0.40-1.00 [facility] Comment on above: Result Comment: METH OD TRACEABLE TO IDMS STANDARD Performed By: #### A BG #### [facility] ([id number]) [address] [place] [address] GFR/1.73 sq M.predicted among non-blacks MDRD (S/P/Bld) [Vol rate/Area] 84 mL/min/{1.73_m2} Normal >59 [facility] Comment on above: Result Comment: Reported eGFR is based on the CKD-EPI 2020 equation that does not use a race coefficient. Performed By: #### A BG #### [facility] ([id number]) [address] [place] [address] Glucose [Mass/Vol] 99 mg/dL Normal 65-99 [facility] Comment on above: Performed By: #### A BG #### [facility] ([id number]) [address] [place] [address] Potassium [Moles/Vol] 4.5 mmol/L Normal 3.5-5.0 [facility] Comment on above: Result Comment: SPEC IMEN HEMOLYZED, RESULTS INCREASED MODERATELY HEMOLYZED Performed By: #### A BG #### [facility] ([id number]) [address] [place] [address] Sodium [Moles/Vol] 134 mmol/L Normal 134-146 [facility] Comment on above: Performed By: #### A BG #### [facility] ([id number]) [address] [place] [address] Urea nitrogen [Mass/Vol] 17 mg/dL Normal 5-27 [facility] Comment on above: Performed By: #### A BG #### [facility] ([id number]) [address] [place] [address] Anion gap [Moles/Vol] 8 mmol/L Normal 5-15 [facility] Comment on above: Performed By: #### A BG #### [facility] ([id number]) [address] [place] [address] Calcium [Mass/Vol] 7.4 mg/dL Low 8.5-10.5 [facility] Comment on above: Performed By: #### A BG #### [facility] ([id number]) [address] [place] [address] Chloride [Moles/Vol] 106 mmol/L Normal 98-109 [facility] Comment on above: Performed By: #### A BG #### [facility] ([id number]) [address] [place] [address] CO2 [Moles/Vol] 24 mmol/L Normal 22-32 [facility] Comment on above: Performed By: #### A BG #### [facility] ([id number]) [address] [place] [address] Creatinine [Mass/Vol] 0.56 mg/dL Normal 0.40-1.00 [facility] Comment on above: Result Comment: METH OD TRACEABLE TO IDMS STANDARD Performed By: #### A BG #### [facility] ([id number]) [address] [place] [address] GFR/1.73 sq M.predicted among non-blacks MDRD (S/P/Bld) [Vol rate/Area] 87 mL/min/{1.73_m2} Normal >59 [facility] Comment on above: Result Comment: Reported eGFR is based on the CKD-EPI 2020 equation that does not use a race coefficient. Performed By: #### A BG #### [facility] ([id number]) [address] [place] [address] Glucose [Mass/Vol] 87 mg/dL Normal 65-99 [facility] Comment on above: Performed By: #### A BG #### [facility] ([id number]) [address] [place] [address] Potassium [Moles/Vol] 4.1 mmol/L Normal 3.5-5.0 [facility] Comment on above: Performed By: #### A BG #### [facility] ([id number]) [address] [place] [address] Sodium [Moles/Vol] 138 mmol/L Normal 134-146 [facility] Comment on above: Performed By: #### A BG #### [facility] ([id number]) [address] [place] [address] Urea nitrogen [Mass/Vol] 16 mg/dL Normal 5-27 [facility] Comment on above: Performed By: #### A BG #### [facility] ([id number]) [address] [place] [address] COMPLETE BLOOD COUNTon 08-27 Erythrocyte distribution width (RBC) [Ratio] 13.7 % Normal 11.5-15.0 [facility] Comment on above: Performed By: #### A BG #### [facility] ([id number]) [address] [place] [address] Hematocrit (Bld) [Volume fraction] 31.3 % Low 35-47 [facility] Comment on above: Performed By: #### A BG #### [facility] ([id number]) [address] [place] [address] Hemoglobin (Bld) [Mass/Vol] 11.0 g/dL Low 11.7-15.5 [facility] Comment on above: Performed By: #### A BG #### [facility] ([id number]) [address] [place] [address] MCH (RBC) [Entitic mass] 32.2 pg Normal 27-34 [facility] Comment on above: Performed By: #### A BG #### [facility] ([id number]) [address] [place] [address] MCHC (RBC) [Mass/Vol] 35.2 g/dL Normal 32-36 [facility] Comment on above: Performed By: #### A BG #### [facility] ([id number]) [address] [place] [address] MCV (RBC) [Entitic vol] 92 fL Normal 80-100 [facility] Comment on above: Performed By: #### A BG #### [facility] ([id number]) [address] [place] [address] Platelet mean volume (Bld) [Entitic vol] 9.3 fL Normal 7-12 [facility] Comment on above: Performed By: #### A BG #### [facility] ([id number]) [address] [place] [address] Platelets (Bld) [#/Vol] 124 10*3/uL Low 150-450 [facility] Comment on above: Performed By: #### A BG #### [facility] ([id number]) [address] [place] [address] RBC COUNT 3.42 X10E12/L Low 3.80-5.20 [facility] Comment on above: Performed By: #### A BG #### [facility] ([id number]) [address] [place] [address] WBC (Bld) [#/Vol] 8.8 10*3/uL Normal 4.0-11.0 [facility] Comment on above: Performed By: #### A BG #### [facility] ([id number]) [address] [place] [address] MAGNESIUMon 08-27-2024 Magnesium [Mass/Vol] 2.0 mg/dL Normal 1.8-2.6 [facility] Comment on above: Performed By: #### A BG #### [facility] ([id number]) [address] [place] [address] URINALYSISon 08-27-2024 Amorphous sediment LM Ql (Urine sed) PRESENT Abnormal NONE [facility] Comment on above: Performed By: #### A BG #### [facility] ([id number]) [address] [place] [address] Bilirubin Ql (U) Negative Normal NEG [facility] Comment on above: Performed By: #### A BG #### [facility] ([id number]) [address] [place] [address] BLOOD/HGB MODERATE Abnormal NEG [facility] Comment on above: Performed By: #### A BG #### [facility] ([id number]) [address] [place] [address] Color (U) YELLOW Normal YELLOW [facility] Comment on above: Performed By: #### A BG #### [facility] ([id number]) [address] [place] [address] Glucose Ql (U) Negative Normal NEG [facility] Comment on above: Performed By: #### A BG #### [facility] ([id number]) [address] [place] [address] Ketones Ql (U) 10 mg/dL Abnormal NEG [facility] Comment on above: Performed By: #### A BG #### [facility] ([id number]) [address] [place] [address] Leukocyte esterase Test strip Ql (U) Trace Abnormal NEG [facility] Comment on above: Performed By: #### A BG #### [facility] ([id number]) [address] [place] [address] MUCOUS PRESENT Abnormal NONE [facility] Comment on above: Performed By: #### A BG #### [facility] ([id number]) [address] [place] [address] Nitrite Ql (U) Positive Abnormal NEG [facility] Comment on above: Performed By: #### A BG #### [facility] ([id number]) [address] [place] [address] pH (U) 6.0 [pH] Normal 5.0-8.5 [facility] Comment on above: Performed By: #### A BG #### [facility] ([id number]) [address] [place] [address] Protein Ql (U) 50 mg/dL Abnormal NEG [facility] Comment on above: Performed By: #### A BG #### [facility] ([id number]) [address] [place] [address] R.B.CELLS 8 /hpf High 0-5 [facility] Comment on above: Performed By: #### A BG #### [facility] ([id number]) [address] [place] [address] Specific gravity (U) [Rel density] 1.029 Normal 1.003-1.03 5 [facility] Comment on above: Performed By: #### A BG #### [facility] ([id number]) [address] [place] [address] SQUAMOUS EPITHELIUM 14 /hpf High 0-5 [facility] Comment on above: Performed By: #### A BG #### [facility] ([id number]) [address] [place] [address] TRANSITIONAL EPITH <1 High 0 [facility] Comment on above: Performed By: #### A BG #### [facility] ([id number]) [address] [place] [address] TURBIDITY HAZY Abnormal CLEAR [facility] Comment on above: Performed By: #### A BG #### [facility] ([id number]) [address] [place] [address] Urobilinogen (U) [Mass/Vol] mg/dL Normal <1.1 [facility] Comment on above: Performed By: #### A BG #### [facility] ([id number]) [address] [place] [address] W.B.CELLS 10 /hpf High 0-5 [facility] Comment on above: Performed By: #### A BG #### [facility] ([id number]) [address] [place] [address] URINE CULTUREon 08-27-2024 Bacteria identified Cx Nom (U) CULTURE RESULTS NO GROWTH AT <1000 CFU/mL Normal [facility] Comment on above: Performed By: #### 6 30-4 ####[facility] ([id number])[address] [facility], [address] [place] [address] XR CHEST 1 VWon 08-27-2024 XR CHEST 1 VW XR CHEST 1 VW Clinical History: Shortness of breath. Portable Upright chest: 08/27/2024 Comparison: 08/23/2024 Findings: A single portable view of the chest was obtained. There is opacity and volume loss in the right lung base. There is minimal strandy density in the left lung base with some improvement. The heart appears enlarged. No pulmonary vascular enlargement is evident peripherally. There is no pneumothorax or pleural effusion. Mediastinal contours are stable with mild aortic tortuosity IMPRESSION: Persistent basilar infiltrates possibly atelectasis or pneumonia. Finalized by Tristin Tiwari MD on 08/27/2024 3:47 PM Normal [facility] BASIC METABOLIC PANLon 08-26 Anion gap [Moles/Vol] 6 mmol/L Normal 5-15 [facility] Comment on above: Performed By: #### A BG #### [facility] ([id number]) [address] [place] [address] Calcium [Mass/Vol] 7.8 mg/dL Low 8.5-10.5 [facility] Comment on above: Performed By: #### A BG #### [facility] ([id number]) [address] [place] [address] Chloride [Moles/Vol] 103 mmol/L Normal 98-109 [facility] Comment on above: Performed By: #### A BG #### [facility] ([id number]) [address] [place] [address] CO2 [Moles/Vol] 29 mmol/L Normal 22-32 [facility] Comment on above: Performed By: #### A BG #### [facility] ([id number]) [address] [place] [address] Creatinine [Mass/Vol] 0.65 mg/dL Normal 0.40-1.00 [facility] Comment on above: Result Comment: METH OD TRACEABLE TO IDMS STANDARD Performed By: #### A BG #### [facility] ([id number]) [address] [place] [address] GFR/1.73 sq M.predicted among non-blacks MDRD (S/P/Bld) [Vol rate/Area] 84 mL/min/{1.73_m2} Normal >59 [facility] Comment on above: Result Comment: Reported eGFR is based on the CKD-EPI 2020 equation that does not use a race coefficient. Performed By: #### A BG #### [facility] ([id number]) [address] [place] [address] Glucose [Mass/Vol] 83 mg/dL Normal 65-99 [facility] Comment on above: Performed By: #### A BG #### [facility] ([id number]) [address] [place] [address] Potassium [Moles/Vol] 3.3 mmol/L Low 3.5-5.0 [facility] Comment on above: Performed By: #### A BG #### [facility] ([id number]) [address] [place] [address] Sodium [Moles/Vol] 138 mmol/L Normal 134-146 [facility] Comment on above: Performed By: #### A BG #### [facility] ([id number]) [address] [place] [address] Urea nitrogen [Mass/Vol] 15 mg/dL Normal 5-27 [facility] Comment on above: Performed By: #### A BG #### [facility] ([id number]) [address] [place] [address] Anion gap [Moles/Vol] 8 mmol/L Normal 5-15 [facility] Comment on above: Performed By: #### A BG #### [facility] ([id number]) [address] [place] [address] Calcium [Mass/Vol] 7.6 mg/dL Low 8.5-10.5 [facility] Comment on above: Performed By: #### A BG #### [facility] ([id number]) [address] [place] [address] Chloride [Moles/Vol] 105 mmol/L Normal 98-109 [facility] Comment on above: Performed By: #### A BG #### [facility] ([id number]) [address] [place] [address] CO2 [Moles/Vol] 26 mmol/L Normal 22-32 [facility] Comment on above: Performed By: #### A BG #### [facility] ([id number]) [address] [place] [address] Creatinine [Mass/Vol] 0.61 mg/dL Normal 0.40-1.00 [facility] Comment on above: Result Comment: METH OD TRACEABLE TO IDMS STANDARD Performed By: #### A BG #### [facility] ([id number]) [address] [place] [address] GFR/1.73 sq M.predicted among non-blacks MDRD (S/P/Bld) [Vol rate/Area] 85 mL/min/{1.73_m2} Normal >59 [facility] Comment on above: Result Comment: Reported eGFR is based on the CKD-EPI 2020 equation that does not use a race coefficient. Performed By: #### A BG #### [facility] ([id number]) [address] [place] [address] Glucose [Mass/Vol] 89 mg/dL Normal 65-99 [facility] Comment on above: Performed By: #### A BG #### [facility] ([id number]) [address] [place] [address] Potassium [Moles/Vol] 3.5 mmol/L Normal 3.5-5.0 [facility] Comment on above: Performed By: #### A BG #### [facility] ([id number]) [address] [place] [address] Sodium [Moles/Vol] 139 mmol/L Normal 134-146 [facility] Comment on above: Performed By: #### A BG #### [facility] ([id number]) [address] [place] [address] Urea nitrogen [Mass/Vol] 15 mg/dL Normal 5-27 [facility] Comment on above: Performed By: #### A BG #### [facility] ([id number]) [address] [place] [address] COMPLETE BLOOD COUNTon 08-26 Erythrocyte distribution width (RBC) [Ratio] 14.1 % Normal 11.5-15.0 [facility] Comment on above: Performed By: #### C BCA, PINR, 12822-6, CMP, , 2776-08 #### [facility] ([id number]) [address], [address] [place] [address] Hematocrit (Bld) [Volume fraction] 32.7 % Low 35-47 [facility] Comment on above: Performed By: #### C BCA, PINR, 58241-0, CMP, , 2776-08 #### [facility] ([id number]) [address], [address] [place] [address] Hemoglobin (Bld) [Mass/Vol] 11.4 g/dL Low 11.7-15.5 [facility] Comment on above: Performed By: #### C BCA, PINR, 70162-2, CMP, , 2776-08 #### [facility] ([id number]) [address], [address] [place] [address] MCH (RBC) [Entitic mass] 32.0 pg Normal 27-34 [facility] Comment on above: Performed By: #### C BCA, PINR, 70220-4, CMP, , 2776-08 #### [facility] ([id number]) [address], [address] [place] [address] MCHC (RBC) [Mass/Vol] 34.9 g/dL Normal 32-36 [facility] Comment on above: Performed By: #### C BCA, PINR, 86919-1, CMP, , 2776-08 #### [facility] ([id number]) [address], [address] [place] [address] MCV (RBC) [Entitic vol] 92 fL Normal 80-100 [facility] Comment on above: Performed By: #### C BCA, PINR, 35280-8, CMP, , 2776-08 #### [facility] ([id number]) [address], [address] [place] [address] Platelet mean volume (Bld) [Entitic vol] 8.9 fL Normal 7-12 [facility] Comment on above: Performed By: #### C BCA, PINR, 00796-6, CMP, , 2776-08 #### [facility] ([id number]) [address], [address] [place] [address] Platelets (Bld) [#/Vol] 107 10*3/uL Low 150-450 [facility] Comment on above: Performed By: #### C BCA, PINR, 41912-5, CMP, , 2776-08 #### [facility] ([id number]) [address], [address] [place] [address] RBC COUNT 3.56 X10E12/L Low 3.80-5.20 [facility] Comment on above: Performed By: #### C BCA, PINR, 29764-1, CMP, , 2776-08 #### [facility] ([id number]) [address], [address] [place] [address] WBC (Bld) [#/Vol] 10.5 10*3/uL Normal 4.0-11.0 [facility] Comment on above: Performed By: #### C BCA, PINR, 77309-1, CMP, , 2776-08 #### [facility] ([id number]) [address], [address] [place] [address] MAGNESIUMon 08-26-2024 Magnesium [Mass/Vol] 2.5 mg/dL Normal 1.8-2.6 [facility] Comment on above: Performed By: #### A BG #### [facility] ([id number]) [address] [place] [address] Magnesium [Mass/Vol] 1.5 mg/dL Low 1.8-2.6 [facility] Comment on above: Performed By: #### A BG #### [facility] ([id number]) [address] [place] [address] POTASSIUMon 08-26-2024 Potassium [Moles/Vol] 3.5 mmol/L Normal 3.5-5.0 [facility] Comment on above: Performed By: #### A BG #### [facility] ([id number]) [address] [place] [address] BASIC METABOLIC PANLon 08-25 Anion gap [Moles/Vol] 5 mmol/L Normal 5-15 [facility] Comment on above: Performed By: #### C BCA, PINR, 79687-3, CMP, , 2776-08 #### [facility] ([id number]) [address], [address] [place] [address] Calcium [Mass/Vol] 7.6 mg/dL Low 8.5-10.5 [facility] Comment on above: Performed By: #### C BCA, PINR, 93334-6, CMP, , 2776-08 #### [facility] ([id number]) [address], [address] [place] [address] Chloride [Moles/Vol] 104 mmol/L Normal 98-109 [facility] Comment on above: Performed By: #### C BCA, PINR, 66096-9, CMP, , 2776- #### [facility] ([id number]) [address], [address] [place] [address] CO2 [Moles/Vol] 28 mmol/L Normal 22-32 [facility] Comment on above: Performed By: #### C BCA, PINR, 85780-5, CMP, , 2776- #### [facility] ([id number]) [address] [address] [place] [address] Creatinine [Mass/Vol] 0.71 mg/dL Normal 0.40-1.00 [facility] Comment on above: Result Comment: METH OD TRACEABLE TO IDMS STANDARD Performed By: #### C BCA, PINR, 93521-5, CMP, , 2776-08 #### [facility] ([id number]) [address] [address] [place] [address] GFR/1.73 sq M.predicted among non-blacks MDRD (S/P/Bld) [Vol rate/Area] 81 mL/min/{1.73_m2} Normal >59 [facility] Comment on above: Result Comment: Reported eGFR is based on the CKD-EPI 2020 equation that does not use a race coefficient. Performed By: #### C BCA, PINR, 85300-6, CMP, , 2776-08 #### [facility] ([id number]) [address] [address] [place] [address] Glucose [Mass/Vol] 98 mg/dL Normal 65-99 [facility] Comment on above: Performed By: #### C BCA, PINR, 04415-2, CMP, , 2776-08 #### [facility] ([id number]) [address] [address] [place] [address] Potassium [Moles/Vol] 3.2 mmol/L Low 3.5-5.0 [facility] Comment on above: Performed By: #### C BCA, PINR, 79710-6, CMP, , 2776-08 #### [facility] ([id number]) [address] [address] [place] [address] Sodium [Moles/Vol] 137 mmol/L Normal 134-146 [facility] Comment on above: Performed By: #### C BCA, PINR, 61252-1, CMP, , 2776-08 #### [facility] ([id number]) [address], [address] [place] [address] Urea nitrogen [Mass/Vol] 18 mg/dL Normal 5-27 [facility] Comment on above: Performed By: #### C BCA, PINR, 27195-7, CMP, , 2776-08 #### [facility] ([id number]) [address], [address] [place] [address] Anion gap [Moles/Vol] 4 mmol/L Low 5-15 [facility] Comment on above: Performed By: #### C BCA, PINR, 15186-9, CMP, , 2776-08 #### [facility] ([id number]) [address], [address] [place] [address] Calcium [Mass/Vol] 7.6 mg/dL Low 8.5-10.5 [facility] Comment on above: Performed By: #### C BCA, PINR, 25529-1, CMP, , 2776-08 #### [facility] ([id number]) [address], [address] [place] [address] Chloride [Moles/Vol] 109 mmol/L Normal 98-109 [facility] Comment on above: Performed By: #### C BCA, PINR, 05502-1, CMP, , 2776-08 #### [facility] ([id number]) [address], [address] [place] [address] CO2 [Moles/Vol] 26 mmol/L Normal 22-32 [facility] Comment on above: Performed By: #### C BCA, PINR, 33608-1, CMP, , 2776-08 #### [facility] ([id number]) [address], [address] [place] [address] Creatinine [Mass/Vol] 0.83 mg/dL Normal 0.40-1.00 [facility] Comment on above: Result Comment: METH OD TRACEABLE TO IDMS STANDARD Performed By: #### C BCA, PINR, 55515-2, CMP, , 2776-08 #### [facility] ([id number]) [address], [address] [place] [address] GFR/1.73 sq M.predicted among non-blacks MDRD (S/P/Bld) [Vol rate/Area] 67 mL/min/{1.73_m2} Normal >59 [facility] Comment on above: Result Comment: Reported eGFR is based on the CKD-EPI 2020 equation that does not use a race coefficient. Performed By: #### C BCA, PINR, 02792-5, CMP, , 2776-08 #### [facility] ([id number]) [address], [address] [place] [address] Glucose [Mass/Vol] 92 mg/dL Normal 65-99 [facility] Comment on above: Performed By: #### C BCA, PINR, 95992-8, CMP, , 2776-08 #### [facility] ([id number]) [address] [address] [place] [address] Potassium [Moles/Vol] 3.6 mmol/L Normal 3.5-5.0 [facility] Comment on above: Performed By: #### C BCA, PINR, 31446-7, CMP, , 2776-08 #### [facility] ([id number]) [address], [address] [place] [address] Sodium [Moles/Vol] 139 mmol/L Normal 134-146 [facility] Comment on above: Performed By: #### C BCA, PINR, 06659-7, CMP, , 2776-08 #### [facility] ([id number]) [address], [address] [place] [address] Urea nitrogen [Mass/Vol] 24 mg/dL Normal 5-27 [facility] Comment on above: Performed By: #### C BCA, PINR, 47764-7, CMP, , 2776-08 #### [facility] ([id number]) [address] [address] [place] [address] COMPLETE BLOOD COUNTon 08-25 Erythrocyte distribution width (RBC) [Ratio] 14.6 % Normal 11.5-15.0 [facility] Comment on above: Performed By: #### C BCA, PINR, 67292-5, CMP, , 2776-08 #### [facility] ([id number]) [address] [address] [place] [address] Hematocrit (Bld) [Volume fraction] 29.7 % Low 35-47 [facility] Comment on above: Performed By: #### C BCA, PINR, 27885-6, CMP, , 2776-08 #### [facility] ([id number]) [address] [address] [place] [address] Hemoglobin (Bld) [Mass/Vol] 10.2 g/dL Low 11.7-15.5 [facility] Comment on above: Performed By: #### C BCA, PINR, 37576-0, CMP, , 2776-08 #### [facility] ([id number]) [address] [address] [place] [address] MCH (RBC) [Entitic mass] 31.7 pg Normal 27-34 [facility] Comment on above: Performed By: #### C BCA, PINR, 23990-6, CMP, , 2776-08 #### [facility] ([id number]) [address] [address] [place] [address] MCHC (RBC) [Mass/Vol] 34.3 g/dL Normal 32-36 [facility] Comment on above: Performed By: #### C BCA, PINR, 50117-0, CMP, , 2776-08 #### [facility] ([id number]) [address], [address] [place] [address] MCV (RBC) [Entitic vol] 93 fL Normal 80-[address] [facility] Comment on above: Performed By: #### C BCA, PINR, 95604-5, CMP, , 2776-08 #### [facility] ([id number]) [address], [address] [place] [address] Platelet mean volume (Bld) [Entitic vol] 8.9 fL Normal 7-12 [facility] Comment on above: Performed By: #### C BCA, PINR, 03172-1, CMP, , 2776-08 #### [facility] ([id number]) [address], [address] [place] [address] Platelets (Bld) [#/Vol] 92 10*3/uL Low 150-[address] [facility] Comment on above: Performed By: #### C BCA, PINR, 52959-4, CMP, , 2776-08 #### [facility] ([id number]) [address], [address] [place] [address] RBC COUNT 3.21 X10E12/L Low 3.80-5.20 [facility] Comment on above: Performed By: #### C BCA, PINR, 98416-9, CMP, , 2776-08 #### [facility] ([id number]) [address], [address] [place] [address] WBC (Bld) [#/Vol] 14.6 10*3/uL High 4.0-11.0 [facility] Comment on above: Performed By: #### C BCA, PINR, 34853-5, CMP, , 2776-08 #### [facility] ([id number]) [address], [address] [place] [address] Calcium.ionized (Bld) [Mass/ Vol]on 08-25-2024 IONIZED CALCIUM 4.6 mg/dL Normal 4.5-5.3 [facility] Comment on above: Performed By: #### C BCA, PINR, 49496-3, CMP, , 2776-08 #### [facility] ([id number]) [address], [address] [place] [address] MAGNESIUMon 08-25-2024 Magnesium [Mass/Vol] 1.9 mg/dL Normal 1.8-2.6 [facility] Comment on above: Performed By: #### C BCA, PINR, 11399-3, CMP, , 2776-08 #### [facility] ([id number]) [address], [address] [place] [address] BASIC METABOLIC PANLon 08-24 Anion gap [Moles/Vol] 6 mmol/L Normal 5-15 [facility] Comment on above: Performed By: #### C BCA, PINR, 64409-8, CMP, , 2776-08 #### [facility] ([id number]) [address], [address] [place] [address] Calcium [Mass/Vol] 7.7 mg/dL Low 8.5-10.5 [facility] Comment on above: Performed By: #### C BCA, PINR, 44483-5, CMP, , 2776-08 #### [facility] ([id number]) [address], [address] [place] [address] Chloride [Moles/Vol] 109 mmol/L Normal 98-109 [facility] Comment on above: Performed By: #### C BCA, PINR, 91492-9, CMP, , 2776-08 #### [facility] ([id number]) [address], [address] [place] [address] CO2 [Moles/Vol] 23 mmol/L Normal 22-32 [facility] Comment on above: Performed By: #### C BCA, PINR, 55395-0, CMP, , 2776-08 #### [facility] ([id number]) [address], [address] [place] [address] Creatinine [Mass/Vol] 0.90 mg/dL Normal 0.40-1.00 [facility] Comment on above: Result Comment: METH OD TRACEABLE TO IDMS STANDARD Performed By: #### C BCA, PINR, 67861-6, CMP, , 2776-08 #### [facility] ([id number]) [address], [address] [address] GFR/1.73 sq M.predicted among non-blacks MDRD (S/P/Bld) [Vol rate/Area] 61 mL/min/{1.73_m2} Normal >59 [facility] Comment on above: Result Comment: Reported eGFR is based on the CKD-EPI 2020 equation that does not use a race coefficient. Performed By: #### C BCA, PINR, 83993-3, CMP, , 2776-08 #### [facility] ([id number]) [address], [address] [place] [address] Glucose [Mass/Vol] 100 mg/dL High 65-99 [facility] Comment on above: Performed By: #### C BCA, PINR, 11164-0, CMP, , 2776-08 #### [facility] ([id number]) [address], [address] [place] [address] Potassium [Moles/Vol] 3.9 mmol/L Normal 3.5-5.0 [facility] Comment on above: Performed By: #### C BCA, PINR, 50920-8, CMP, 64310-2, 2776- #### [facility] ([id number]) [address], [address] [place] [address] Sodium [Moles/Vol] 138 mmol/L Normal 134-146 [facility] Comment on above: Performed By: #### C BCA, PINR, 66071-1, CMP, 59328-7, 2776- #### [facility] ([id number]) [address], [address] [place] [address] Urea nitrogen [Mass/Vol] 28 mg/dL High 5-27 [facility] Comment on above: Performed By: #### C BCA, PINR, 86719-4, CMP, 61729-6, 2776- #### [facility] ([id number]) [address], [address] [place] [address] Anion gap [Moles/Vol] 8 mmol/L Normal 5-15 [facility] Comment on above: Performed By: #### C BCA, PINR, 37198-8, CMP, , 2776-08 #### [facility] ([id number]) [address], [address] [place] [address] Calcium [Mass/Vol] 7.7 mg/dL Low 8.5-10.5 [facility] Comment on above: Performed By: #### C BCA, PINR, 20624-4, CMP, 48854-8, 2776-08 #### [facility] ([id number]) [address], [address] [place] [address] Chloride [Moles/Vol] 110 mmol/L High 98-109 [facility] Comment on above: Performed By: #### C BCA, PINR, 02220-5, CMP, 56597-6, 2776- #### [facility] ([id number]) [address], [address] [place] [address] CO2 [Moles/Vol] 22 mmol/L Normal 22-32 [facility] Comment on above: Performed By: #### C BCA, PINR, 65826-8, CMP, , 2776-08 #### [facility] ([id number]) [address], [facility] [address] [place] [address] Creatinine [Mass/Vol] 0.99 mg/dL Normal 0.40-1.00 [facility] Comment on above: Result Comment: METH OD TRACEABLE TO IDMS STANDARD Performed By: #### C BCA, PINR, 56663-9, CMP, , 2776-08 #### [facility] ([id number]) [address], [facility] [address] [place] [address] GFR/1.73 sq M.predicted among non-blacks MDRD (S/P/Bld) [Vol rate/Area] 55 mL/min/{1.73_m2} Low >59 [facility] Comment on above: Result Comment: Reported eGFR is based on the CKD-EPI 2020 equation that does not use a race coefficient. Performed By: #### C BCA, PINR, 18952-8, CMP, , 2776-08 #### [facility] ([id number]) [address], [address] [place] [address] Glucose [Mass/Vol] 91 mg/dL Normal 65-99 [facility] Comment on above: Performed By: #### C BCA, PINR, 20681-9, CMP, , 2776-08 #### [facility] ([id number]) [address], [facility] [address] [place] [address] Potassium [Moles/Vol] 3.7 mmol/L Normal 3.5-5.0 [facility] Comment on above: Performed By: #### C BCA, PINR, 73694-5, CMP, , 2777-1 #### [facility] ([id number]) [address], [address] [place] [address] Sodium [Moles/Vol] 140 mmol/L Normal 134-146 [facility] Comment on above: Performed By: #### C BCA, PINR, 51962-0, CMP, , 2776- #### [facility] ([id number]) [address], [address] [place] [address] Urea nitrogen [Mass/Vol] 32 mg/dL High 5-27 [facility] Comment on above: Performed By: #### C BCA, PINR, 08343-6, CMP, , 2776-08 #### [facility] ([id number]) [address], [address] [place] [address] Anion gap [Moles/Vol] 4 mmol/L Low 5-15 [facility] Comment on above: Performed By: #### C BCA, PINR, 15236-6, CMP, , 2776-08 #### [facility] ([id number]) [address], [address] [place] [address] Calcium [Mass/Vol] 7.5 mg/dL Low 8.5-10.5 [facility] Comment on above: Performed By: #### C BCA, PINR, 16923-5, CMP, , 2776-08 #### [facility] ([id number]) [address], [address] [place] [address] Chloride [Moles/Vol] 112 mmol/L High 98-109 [facility] Comment on above: Performed By: #### C BCA, PINR, 64979-3, CMP, , 2776-08 #### [facility] ([id number]) [address], [address] [place] [address] CO2 [Moles/Vol] 24 mmol/L Normal 22-32 [facility] Comment on above: Performed By: #### C BCA, PINR, 55246-3, CMP, , 2776-08 #### [facility] ([id number]) [address], [address] [place] [address] Creatinine [Mass/Vol] 1.22 mg/dL High 0.40-1.00 [facility] Comment on above: Result Comment: METH OD TRACEABLE TO IDMS STANDARD Performed By: #### C BCA, PINR, 65192-5, CMP, , 2776-08 #### [facility] ([id number]) [address], [address] [place] [address] GFR/1.73 sq M.predicted among non-blacks MDRD (S/P/Bld) [Vol rate/Area] 42 mL/min/{1.73_m2} Low >59 [facility] Comment on above: Result Comment: Reported eGFR is based on the CKD-EPI 2020 equation that does not use a race coefficient. Performed By: #### C BCA, PINR, 32546-1, CMP, , 2776-08 #### [facility] ([id number]) [address], [address] [place] [address] Glucose [Mass/Vol] 94 mg/dL Normal 65-99 [facility] Comment on above: Performed By: #### C BCA, PINR, 27381-6, CMP, , 2776-08 #### [facility] ([id number]) [address], [address] [place] [address] Potassium [Moles/Vol] 4.1 mmol/L Normal 3.5-5.0 [facility] Comment on above: Performed By: #### C BCA, PINR, 84495-7, CMP, , 2776-08 #### [facility] ([id number]) [address], [address] [place] [address] Sodium [Moles/Vol] 140 mmol/L Normal 134-146 [facility] Comment on above: Performed By: #### C BCA, PINR, 06637-3, CMP, , 2776-08 #### [facility] ([id number]) [address], [address] [place] [address] Urea nitrogen [Mass/Vol] 38 mg/dL High 5-27 [facility] Comment on above: Performed By: #### C BCA, PINR, 84194-4, CMP, , 2776-08 #### [facility] ([id number]) [address], [facility] [address] [place] [address] COMPLETE BLOOD COUNTon 08-24 Erythrocyte distribution width (RBC) [Ratio] 14.6 % Normal 11.5-15.0 [facility] Comment on above: Performed By: #### C BCA, PINR, 58572-3, CMP, , 2776-08 #### [facility] ([id number]) [address], [address] [place] [address] Hematocrit (Bld) [Volume fraction] 28.5 % Low 35-47 [facility] Comment on above: Performed By: #### C BCA, PINR, 20837-7, CMP, , 2776-08 #### [facility] ([id number]) [address], [address] [place] [address] Hemoglobin (Bld) [Mass/Vol] 9.6 g/dL Low 11.7-15.5 [facility] Comment on above: Performed By: #### C BCA, PINR, 44522-7, CMP, , 2776-08 #### [facility] ([id number]) [address], [address] [place] [address] MCH (RBC) [Entitic mass] 31.0 pg Normal 27-34 [facility] Comment on above: Performed By: #### C BCA, PINR, 82054-5, CMP, 27264-2, 2776- #### [facility] ([id number]) [address], [address] [place] [address] MCHC (RBC) [Mass/Vol] 33.6 g/dL Normal 32-36 [facility] Comment on above: Performed By: #### C BCA, PINR, 82352-1, CMP, 32002-9, 2776- #### [facility] ([id number]) [address], [address] [place] [address] MCV (RBC) [Entitic vol] 92 fL Normal 80-[address] [facility] Comment on above: Performed By: #### C BCA, PINR, 03424-5, CMP, 03694-9, 2776- #### [facility] ([id number]) [address], [address] [place] [address] Platelet mean volume (Bld) [Entitic vol] 8.6 fL Normal 7-12 [facility] Comment on above: Performed By: #### C BCA, PINR, 60350-1, CMP, , 2776-08 #### [facility] ([id number]) [address], [address] [place] [address] Platelets (Bld) [#/Vol] 84 10*3/uL Low 150-[address] [facility] Comment on above: Performed By: #### C BCA, PINR, 22797-6, CMP, 65085-9, 2776- #### [facility] ([id number]) [address], [address] [place] [address] RBC COUNT 3.08 X10E12/L Low 3.80-5.20 [facility] Comment on above: Performed By: #### C BCA, PINR, 34091-3, CMP, 73247-9, 2776- #### [facility] ([id number]) [address], [address] [place] [address] WBC (Bld) [#/Vol] 16.3 10*3/uL High 4.0-11.0 [facility] Comment on above: Performed By: #### C BCA, PINR, 06655-5, CMP, , 1 #### [facility] ([id number]) [address], [address] [place] [address] Calcium.ionized (Bld) [Mass/ Vol]on 08-24-2024 IONIZED CALCIUM 4.7 mg/dL Normal 4.5-5.3 [facility] Comment on above: Performed By: #### C BCA, PINR, 08440-9, CMP, , 1 #### [facility] ([id number]) [address], [address] [place] [address] Lactate (P sherron) [Moles/Vol]o n 08-24-2024 LACTATE W/REFLEX 1.2 mmol/L Normal 0.4-2.0 [facility] Comment on above: Result Comment: Result did not trigger repeat Lactate, re-order if needed. Performed By: #### C BCA, PINR, 19205-2, CMP, , 2776-08 #### [facility] ([id number]) [address], [address] [place] [address] LACTATE W/REFLEX 1.6 mmol/L Normal 0.4-2.0 [facility] Comment on above: Result Comment: Result did not trigger repeat Lactate, re-order if needed. Performed By: #### C BCA, PINR, 74757-2, CMP, , 2776-08 #### [facility] ([id number]) [address], [address] [place] [address] MAGNESIUMon 08-24-2024 Magnesium [Mass/Vol] 2.3 mg/dL Normal 1.8-2.6 [facility] Comment on above: Performed By: #### C BCA, PINR, 50587-4, CMP, , 2776-08 #### [facility] ([id number]) [address], [address] [place] [address] POTASSIUMon 08-24-2024 Potassium [Moles/Vol] 4.1 mmol/L Normal 3.5-5.0 [facility] Comment on above: Performed By: #### C BCA, PINR, 82104-4, CMP, , 2776-08 #### [facility] ([id number]) [address], [address] [place] [address] AMYLASEon 08-23-2024 Amylase [Catalytic activity/Vol] 54 U/L Normal 28-100 [facility] Comment on above: Performed By: #### C BCA, PINR, 96886-0, CMP, , 2776-08 #### [facility] ([id number]) [address], [address] [place] [address] ARTERIAL BLOOD GASon 024 ANDRE'S TEST Normal [facility] Comment on above: Performed By: #### C BCA, PINR, 78733-8, CMP, , 2776-08 #### [facility] ([id number]) [address], [address] [place] [address] BASE,DEFICIT 5.0 MMOL/L High 0.0-2.0 [facility] Comment on above: Performed By: #### C BCA, PINR, 39589-4, CMP, , 2776-08 #### [facility] ([id number]) [address], [address] [place] [address] Body temperature 98.6 [degF] Normal 37.0 [facility] Comment on above: Performed By: #### C BCA, PINR, 37433-9, CMP, , 2776-08 #### [facility] ([id number]) [address], [address] [place] [address] HCO3 (Bld) [Moles/Vol] 18.5 mmol/L Low 22-[address] [facility] Comment on above: Performed By: #### C BCA, PINR, 49389-4, CMP, , 2776-08 #### [facility] ([id number]) [address], [address] [place] [address] INSP. O2 CONC. 40 % Normal [facility] Comment on above: Performed By: #### C BCA, PINR, 12264-4, CMP, , 2776-08 #### [facility] ([id number]) [address], [address] [place] [address] Oxygen (Bld) [Partial pressure] 166 mm[Hg] High 80-100 [facility] Comment on above: Performed By: #### C BCA, PINR, 48469-5, CMP, , 2776-08 #### [facility] ([id number]) [address], [address] [place] [address] Oxygen saturation in Blood 100.0 % Normal >90 [facility] Comment on above: Performed By: #### C BCA, PINR, 44286-1, CMP, , 2776-08 #### [facility] ([id number]) [address], [address] [place] [address] OXYGEN SOURCE Vent Normal [facility] Comment on above: Performed By: #### C BCA, PINR, 12279-2, CMP, , 2776-08 #### [facility] ([id number]) [address], [address] [place] [address] PCO2 26.6 MMHG Low 35-45 [facility] Comment on above: Performed By: #### C BCA, PINR, 97177-5, CMP, 74684-1, 2776- #### [facility] ([id number]) [address], [address] [place] [address] pH (Bld) 7.452 [pH] High 7.350-7.45 0 [facility] Comment on above: Performed By: #### C BCA, PINR, 13849-4, CMP, 38404-7, 2776- #### [facility] ([id number]) [address], [address] [place] [address] SAMPLE SITE [place] [facility] Comment on above: Performed By: #### C BCA, PINR, 33989-0, CMP, 33581-6, 2776- #### [facility] ([id number]) [address], [address] [place] [address] SAMPLE TYPE ARTERIAL [facility] Comment on above: Performed By: #### C BCA, PINR, 06438-8, CMP, 81391-9, 2776- #### [facility] ([id number]) [address], [address] [place] [address] ANDRE'S TEST Normal [facility] Comment on above: Performed By: #### C BCA, PINR, 87074-6, CMP, 52672-9, 2776- #### [facility] ([id number]) [address], [address] [place] [address] BASE,DEFICIT 9.0 MMOL/L High 0.0-2.0 [facility] Comment on above: Performed By: #### C BCA, PINR, 95239-2, CMP, 76597-7, 2776- #### [facility] ([id number]) [address], [address] [place] [address] Body temperature 98.6 [degF] Normal 37.0 [facility] Comment on above: Performed By: #### C BCA, PINR, 33582-5, CMP, 96568-3, 2776-08 #### [facility] ([id number]) [address], [address] [place] [address] HCO3 (Bld) [Moles/Vol] 16.5 mmol/L Low 22-[address] [facility] Comment on above: Performed By: #### C BCA, PINR, 26671-7, CMP, 38637-4, 2776- #### [facility] ([id number]) [address], [address] [place] [address] INSP. O2 CONC. 40 % Normal [facility] Comment on above: Performed By: #### C BCA, PINR, 35647-0, CMP, 74227-9, 2776-08 #### [facility] ([id number]) [address], [address] [place] [address] Oxygen (Bld) [Partial pressure] 147 mm[Hg] High 80-100 [facility] Comment on above: Performed By: #### C BCA, PINR, 62851-7, CMP, , 2776-08 #### [facility] ([id number]) [address], [address] [place] [address] Oxygen saturation in Blood 99.0 % Normal >90 [facility] Comment on above: Performed By: #### C BCA, PINR, 16409-1, CMP, , 2776-08 #### [facility] ([id number]) [address], [address] [place] [address] OXYGEN SOURCE Vent Normal [facility] Comment on above: Performed By: #### C BCA, PINR, 53078-9, CMP, , 2776- #### [facility] ([id number]) [address] [place] [address] PCO2 35.1 MMHG Normal 35-45 [facility] Comment on above: Performed By: #### C BCA, PINR, 24946-1, CMP, 65694-1, 2776-08 #### [facility] ([id number]) [address], [address] [place] [address] pH (Bld) 7.279 [pH] Low 7.350-7.45 0 [facility] Comment on above: Performed By: #### C BCA, PINR, 57350-6, CMP, 44053-1, 2776- #### [facility] ([id number]) [address], [address] [place] [address] SAMPLE SITE [place] Normal [facility] Comment on above: Performed By: #### C BCA, PINR, 33045-4, CMP, 78494-2, 2776- #### [facility] ([id number]) [address], [address] [place] [address] SAMPLE TYPE ARTERIAL Normal [facility] Comment on above: Performed By: #### C BCA, PINR, 31937-3, CMP, , 2776-08 #### [facility] ([id number]) [address], [address] [place] [address] BASIC METABOLIC PANLon 08-23 Calcium [Mass/Vol] 7.8 mg/dL Low 8.5-10.5 [facility] Comment on above: Performed By: #### C BCA, PINR, 33044-7, CMP, 80089-6, 2776- #### [facility] ([id number]) [address], [address] [place] [address] Chloride [Moles/Vol] 112 mmol/L High 98-109 [facility] Comment on above: Performed By: #### C BCA, PINR, 33101-2, CMP, 26314-2, 2776-1 #### [facility] ([id number]) [address], [address] [place] [address] Creatinine [Mass/Vol] 1.41 mg/dL High 0.40-1.00 [facility] Comment on above: Result Comment: METH OD TRACEABLE TO IDMS STANDARD Performed By: #### C BCA, PINR, 74269-8, CMP, , 2776-08 #### [facility] ([id number]) [address], [address] [place] [address] GFR/1.73 sq M.predicted among non-blacks MDRD (S/P/Bld) [Vol rate/Area] 36 mL/min/{1.73_m2} Low >59 [facility] Comment on above: Result Comment: Reported eGFR is based on the CKD-EPI 2020 equation that does not use a race coefficient. Performed By: #### C BCA, PINR, 09425-8, CMP, , 2776-08 #### [facility] ([id number]) [address], [address] [place] [address] Glucose [Mass/Vol] 108 mg/dL High 65-99 [facility] Comment on above: Performed By: #### C BCA, PINR, 46172-1, CMP, , 2776-08 #### [facility] ([id number]) [address] [address] [place] [address] Potassium [Moles/Vol] 3.8 mmol/L Normal 3.5-5.0 [facility] Comment on above: Performed By: #### C BCA, PINR, 83036-2, CMP, , 2776-08 #### [facility] ([id number]) [address], [address] [place] [address] Sodium [Moles/Vol] 141 mmol/L Normal 134-146 [facility] Comment on above: Performed By: #### C BCA, PINR, 69701-8, CMP, , 2776-08 #### [facility] ([id number]) [address] [place] [address] Urea nitrogen [Mass/Vol] 41 mg/dL High 5-27 [facility] Comment on above: Performed By: #### C BCA, PINR, 13050-7, CMP, , 2776- #### [facility] ([id number]) [address], [address] [place] [address] Anion gap [Moles/Vol] 9 mmol/L Normal 5-15 [facility] Comment on above: Performed By: #### C BCA, PINR, 54161-3, CMP, , 2776-08 #### [facility] ([id number]) [address], [address] [place] [address] Calcium [Mass/Vol] 7.7 mg/dL Low 8.5-10.5 [facility] Comment on above: Performed By: #### C BCA, PINR, 31563-4, CMP, , 2776-08 #### [facility] ([id number]) [address], [address] [place] [address] Chloride [Moles/Vol] 113 mmol/L High 98-109 [facility] Comment on above: Performed By: #### C BCA, PINR, 60394-3, CMP, , 2776-08 #### [facility] ([id number]) [address], [address] [place] [address] CO2 [Moles/Vol] 21 mmol/L Low 22-32 [facility] Comment on above: Performed By: #### C BCA, PINR, 95171-9, CMP, , 2776-08 #### [facility] ([id number]) [address], [address] [place] [address] Creatinine [Mass/Vol] 1.62 mg/dL High 0.40-1.00 [facility] Comment on above: Result Comment: METH OD TRACEABLE TO IDMS STANDARD Performed By: #### C BCA, PINR, 29958-0, CMP, , 2776-08 #### [facility] ([id number]) [address], [address] [place] [address] GFR/1.73 sq M.predicted among non-blacks MDRD (S/P/Bld) [Vol rate/Area] 30 mL/min/{1.73_m2} Low >59 [facility] Comment on above: Result Comment: Reported eGFR is based on the CKD-EPI 2020 equation that does not use a race coefficient. Performed By: #### C BCA, PINR, 80639-0, CMP, , 2776-08 #### [facility] ([id number]) [address], [address] [place] [address] Glucose [Mass/Vol] 113 mg/dL High 65-99 [facility] Comment on above: Performed By: #### C BCA, PINR, 31960-7, CMP, , 2776-08 #### [facility] ([id number]) [address], [address] [place] [address] Potassium [Moles/Vol] 3.9 mmol/L Normal 3.5-5.0 [facility] Comment on above: Performed By: #### C BCA, PINR, 03820-9, CMP, , 2776-08 #### [facility] ([id number]) [address], [address] [place] [address] Sodium [Moles/Vol] 143 mmol/L Normal 134-146 [facility] Comment on above: Performed By: #### C BCA, PINR, 06790-0, CMP, , 2776- #### [facility] ([id number]) [address], [address] [place] [address] Urea nitrogen [Mass/Vol] 44 mg/dL High 5-27 [facility] Comment on above: Performed By: #### C BCA, PINR, 73904-3, CMP, , 2776-08 #### [facility] ([id number]) [address], [address] [place] [address] Anion gap [Moles/Vol] 7 mmol/L Normal 5-15 [facility] Comment on above: Performed By: #### C BCA, PINR, 25547-6, CMP, , 2776-08 #### [facility] ([id number]) [address], [address] [place] [address] Calcium [Mass/Vol] 7.5 mg/dL Low 8.5-10.5 [facility] Comment on above: Performed By: #### C BCA, PINR, 73082-8, CMP, , 2776-08 #### [facility] ([id number]) [address], [address] [place] [address] Chloride [Moles/Vol] 113 mmol/L High 98-109 [facility] Comment on above: Performed By: #### C BCA, PINR, 79565-4, CMP, , 2776-08 #### [facility] ([id number]) [address], [address] [place] [address] CO2 [Moles/Vol] 20 mmol/L Low 22-32 [facility] Comment on above: Performed By: #### C BCA, PINR, 37257-3, CMP, , 2776-08 #### [facility] ([id number]) [address], [address] [place] [address] Creatinine [Mass/Vol] 1.93 mg/dL High 0.40-1.00 [facility] Comment on above: Result Comment: METH OD TRACEABLE TO IDMS STANDARD Performed By: #### C BCA, PINR, 33834-9, CMP, , 2776-08 #### [facility] ([id number]) [address], [address] [place] [address] GFR/1.73 sq M.predicted among non-blacks MDRD (S/P/Bld) [Vol rate/Area] 24 mL/min/{1.73_m2} Low >59 [facility] Comment on above: Result Comment: Reported eGFR is based on the CKD-EPI 2020 equation that does not use a race coefficient. Performed By: #### C BCA, PINR, 18634-8, CMP, , 2776-08 #### [facility] ([id number]) [address], [address] [place] [address] Glucose [Mass/Vol] 152 mg/dL High 65-99 [facility] Comment on above: Performed By: #### C BCA, PINR, 63354-8, CMP, , 2776-08 #### [facility] ([id number]) [address], [address] [place] [address] Potassium [Moles/Vol] 4.4 mmol/L Normal 3.5-5.0 [facility] Comment on above: Performed By: #### C BCA, PINR, 95802-1, CMP, , 2776-08 #### [facility] ([id number]) [address], [address] [place] [address] Sodium [Moles/Vol] 140 mmol/L Normal 134-146 [facility] Comment on above: Performed By: #### C BCA, PINR, 07019-5, CMP, , 2776-08 #### [facility] ([id number]) [address], [address] [place] [address] Urea nitrogen [Mass/Vol] 47 mg/dL High 5-27 [facility] Comment on above: Performed By: #### C BCA, PINR, 20824-2, CMP, , 2776-08 #### [facility] ([id number]) [address], [address] [place] [address] COMPLETE BLOOD COUNTon 08-23 Erythrocyte distribution width (RBC) [Ratio] 14.7 % Normal 11.5-15.0 [facility] Comment on above: Performed By: #### C BCA, PINR, 71469-2, CMP, , 2776-08 #### [facility] ([id number]) [address], [facility] [address] [place] [address] Hematocrit (Bld) [Volume fraction] 32.3 % Low 35-47 [facility] Comment on above: Performed By: #### C BCA, PINR, 11249-0, CMP, , 2776-08 #### [facility] ([id number]) [address], [address] [place] [address] Hemoglobin (Bld) [Mass/Vol] 10.9 g/dL Low 11.7-15.5 [facility] Comment on above: Performed By: #### C BCA, PINR, 68481-5, CMP, , 2776-08 #### [facility] ([id number]) [address], [address] [place] [address] MCH (RBC) [Entitic mass] 31.4 pg Normal 27-34 [facility] Comment on above: Performed By: #### C BCA, PINR, 65866-0, CMP, , 2776-08 #### [facility] ([id number]) [address], [address] [place] [address] MCHC (RBC) [Mass/Vol] 33.7 g/dL Normal 32-36 [facility] Comment on above: Performed By: #### C BCA, PINR, 57148-6, CMP, 01871-1, 2776- #### [facility] ([id number]) [address], [address] [place] [address] MCV (RBC) [Entitic vol] 93 fL Normal 80-[address] [facility] Comment on above: Performed By: #### C BCA, PINR, 45917-2, CMP, 28843-6, 2776- #### [facility] ([id number]) [address], [address] [place] [address] Platelet mean volume (Bld) [Entitic vol] 8.6 fL Normal 7-12 [facility] Comment on above: Performed By: #### C BCA, PINR, 48842-0, CMP, 67701-6, 2776- #### [facility] ([id number]) [address], [address] [place] [address] Platelets (Bld) [#/Vol] 132 10*3/uL Low 150-450 [facility] Comment on above: Performed By: #### C BCA, PINR, 24092-6, CMP, 44606-4, 2776- #### [facility] ([id number]) [address], [address] [place] [address] RBC COUNT 3.47 X10E12/L Low 3.80-5.20 [facility] Comment on above: Performed By: #### C BCA, PINR, 59633-1, CMP, 25794-7, 2776- #### [facility] ([id number]) [address], [address] [place] [address] WBC (Bld) [#/Vol] 17.5 10*3/uL High 4.0-11.0 [facility] Comment on above: Performed By: #### C BCA, PINR, 34037-1, CMP, 47899-4, 2776- #### [facility] ([id number]) [address], [address] [place] [address] Calcium.ionized (Bld) [Mass/ Vol]on 08-23-2024 IONIZED CALCIUM 4.6 mg/dL Normal 4.5-5.3 [facility] Comment on above: Performed By: #### C BCA, PINR, 00422-5, CMP, , 2776-08 #### [facility] ([id number]) [address], [address] [place] [address] FLUID AMYLASEon 08-23-2024 SABINA SPECIMEN TYPE ASPIRATE Normal [facility] Comment on above: Result Comment: MICK JOSAFAT CHO ABDOMEN Performed By: #### C BCA, PINR, 49233-2, CMP, , 2776-08 #### [facility] ([id number]) [address], [address] [place] [address] FLUID AMYLASE 1004 U/L Normal [facility] Comment on above: Result Comment: The reference interval and other method performance specifications are unavailable for this body fluid. Comparison of this result to serum or plasma is recommended. Performed By: #### C BCA, PINR, 58606-7, CMP, , 2776-08 #### [facility] ([id number]) [address], [address] [place] [address] FLUID BILIRUBIINon 4 Bilirubin.direct [Mass/Vol] 3.1 mg/dL Normal [facility] Comment on above: Result Comment: The reference interval and other method performance specifications are unavailable for this body fluid. Comparison of this result to serum or plasma is recommended. Performed By: #### C BCA, PINR, 50323-2, CMP, , 2776-08 #### [facility] ([id number]) [address], [address] [place] [address] TBIL SPECIMEN TYPE ASPIRATE Normal [facility] Comment on above: Result Comment: SID MEYER Performed By: #### C BCA, PINR, 41825-1, CMP, 38073-8, 2776- #### [facility] ([id number]) [address], [address] [place] [address] LIVER PANELon 08-23-2024 Albumin [Mass/Vol] 2.3 g/dL Low 3.2-5.3 [facility] Comment on above: Performed By: #### C BCA, PINR, 46956-8, CMP, 58117-4, 2776- #### [facility] ([id number]) [address], [address] [place] [address] ALP [Catalytic activity/Vol] 38 U/L Low 39-130 [facility] Comment on above: Performed By: #### C BCA, PINR, 66725-7, CMP, 14025-4, 2776- #### [facility] ([id number]) [address], [address] [place] [address] ALT [Catalytic activity/Vol] 6 U/L Normal 0-31 [facility] Comment on above: Performed By: #### C BCA, PINR, 29319-0, CMP, 57944-9, 2776- #### [facility] ([id number]) [address], [address] [place] [address] AST [Catalytic activity/Vol] 16 U/L Normal 0-41 [facility] Comment on above: Performed By: #### C BCA, PINR, 29885-3, CMP, 31362-4, 2776- #### [facility] ([id number]) [address], [address] [place] [address] Bilirubin [Mass/Vol] 0.7 mg/dL Normal 0.3-1.2 [facility] Comment on above: Performed By: #### C BCA, PINR, 37941-9, CMP, 92508-6, 2776-1 #### [facility] ([id number]) [address], [address] [place] [address] Bilirubin.direct [Mass/Vol] 0.2 mg/dL Normal 0.0-0.4 [facility] Comment on above: Performed By: #### C BCA, PINR, 44382-3, CMP, , 2776-08 #### [facility] ([id number]) [address], [address] [place] [address] Protein [Mass/Vol] 3.9 g/dL Low 6.0-8.0 [facility] Comment on above: Performed By: #### C BCA, PINR, 54420-4, CMP, , 2776-08 #### [facility] ([id number]) [address], [address] [place] [address] Lactate (P sherron) [Moles/Vol]o n 08-23-2024 LACTATE W/REFLEX 2.2 mmol/L High 0.4-2.0 [facility] Comment on above: Performed By: #### C BCA, PINR, 32191-3, CMP, , 2776-08 #### [facility] ([id number]) [address], [address] [place] [address] LACTATE W/REFLEX 2.7 mmol/L High 0.4-2.0 [facility] Comment on above: Performed By: #### C BCA, PINR, 17735-3, CMP, , 2776-08 #### [facility] ([id number]) [address], [address] [place] [address] LACTATE W/REFLEX 2.9 mmol/L High 0.4-2.0 [facility] Comment on above: Performed By: #### C BCA, PINR, 41637-0, CMP, , 2776-08 #### [facility] ([id number]) [address], [address] [place] [address] MAGNESIUMon 08-23-2024 Magnesium [Mass/Vol] 2.6 mg/dL Normal 1.8-2.6 [facility] Comment on above: Performed By: #### C BCA, PINR, 01221-1, CMP, , 1 #### [facility] ([id number]) [address], [address] [place] [address] XR CHEST 1 VWon 08-23-2024 XR CHEST 1 VW XR CHEST 1 VW XR CHEST 1 VW IMPRESSION: Clinical Information: intubated Comparison: 08/22/24. * Endotracheal tube, nasogastric tube, and right IJ catheter present. Mild vascular congestion with basilar atelectasis right greater than left. Stable heart size. Finalized by Peewee Vasquez MD on 08/23/2024 7:33 AM Normal [facility] ARTERIAL BLOOD GASon 024 ANDRE'S TEST Normal [facility] Comment on above: Performed By: #### C BCA, PINR, 56964-0, CMP, , 2776-08 #### [facility] ([id number]) [address], [address] [place] [address] BASE,DEFICIT 5.0 MMOL/L High 0.0-2.0 [facility] Comment on above: Performed By: #### C BCA, PINR, 05224-8, CMP, , 2776-08 #### [facility] ([id number]) [address], [address] [place] [address] Body temperature 98.6 [degF] Normal 37.0 [facility] Comment on above: Performed By: #### C BCA, PINR, 40314-7, CMP, , 1 #### [facility] ([id number]) [address], [address] [place] [address] HCO3 (Bld) [Moles/Vol] 19.7 mmol/L Low 22-[address] [facility] Comment on above: Performed By: #### C BCA, PINR, 40910-8, CMP, 49856-0, 2776- #### [facility] ([id number]) [address], [address] [place] [address] INSP. O2 CONC. 40 % Normal [facility] Comment on above: Performed By: #### C BCA, PINR, 90709-7, CMP, 91645-8, 2776- #### [facility] ([id number]) [address], [address] [place] [address] Oxygen (Bld) [Partial pressure] 165 mm[Hg] High 80-100 [facility] Comment on above: Performed By: #### C BCA, PINR, 75178-1, CMP, , 2776- #### [facility] ([id number]) [address], [address] [place] [address] Oxygen saturation in Blood 99.0 % Normal >90 [facility] Comment on above: Performed By: #### C BCA, PINR, 30644-4, CMP, , 2776- #### [facility] ([id number]) [address], [address] [place] [address] OXYGEN SOURCE Vent Normal [facility] Comment on above: Performed By: #### C BCA, PINR, 82014-7, CMP, 49168-2, 2776- #### [facility] ([id number]) [address], [address] [place] [address] PCO2 34.2 MMHG Low 35-45 [facility] Comment on above: Performed By: #### C BCA, PINR, 64563-9, CMP, 72984-1, 2776- #### [facility] ([id number]) [address], [address] [place] [address] pH (Bld) 7.368 [pH] Normal 7.350-7.45 0 [facility] Comment on above: Performed By: #### C BCA, PINR, 45989-8, CMP, 93525-4, 2776- #### [facility] ([id number]) [address], [address] [place] [address] SAMPLE SITE Foster [facility] Comment on above: Performed By: #### C BCA, PINR, 29975-9, CMP, 76713-1, 2776- #### [facility] ([id number]) [address], [address] [place] [address] SAMPLE TYPE ARTERIAL [facility] Comment on above: Performed By: #### C BCA, PINR, 96625-7, CMP, 21372-0, 2776- #### [facility] ([id number]) [address], [address] [place] [address] ANDRE'S TEST Normal [facility] Comment on above: Performed By: #### C BCA, PINR, 57044-0, CMP, 27295-1, 2776- #### [facility] ([id number]) [address], [address] [place] [address] BASE,DEFICIT 7.0 MMOL/L High 0.0-2.0 [facility] Comment on above: Performed By: #### C BCA, PINR, 29801-7, CMP, 08618-8, 2776- #### [facility] ([id number]) [address], [address] [place] [address] Body temperature 98.6 [degF] Normal 37.0 [facility] Comment on above: Performed By: #### C BCA, PINR, 75641-8, CMP, 19273-2, 2776- #### [facility] ([id number]) [address], [address] [place] [address] HCO3 (Bld) [Moles/Vol] 18.6 mmol/L Low 22-[address] [facility] Comment on above: Performed By: #### C BCA, PINR, 96200-4, CMP, 05972-0, 2776- #### [facility] ([id number]) [address], [address] [place] [address] INSP. O2 CONC. 40 % Normal [facility] Comment on above: Performed By: #### C BCA, PINR, 97895-2, CMP, 96801-5, 2776- #### [facility] ([id number]) [address], [address] [place] [address] Oxygen (Bld) [Partial pressure] 165 mm[Hg] High 80-100 [facility] Comment on above: Performed By: #### C BCA, PINR, 34644-9, CMP, , 2776-08 #### [facility] ([id number]) [address], [address] [place] [address] Oxygen saturation in Blood 99.0 % Normal >90 [facility] Comment on above: Performed By: #### C BCA, PINR, 99947-2, CMP, , 2776-08 #### [facility] ([id number]) [address], [address] [place] [address] OXYGEN SOURCE Vent Normal [facility] Comment on above: Performed By: #### C BCA, PINR, 01726-2, CMP, 48681-8, 2776- #### [facility] ([id number]) [address], [address] [place] [address] PCO2 38.6 MMHG Normal 35-45 [facility] Comment on above: Performed By: #### C BCA, PINR, 37496-2, CMP, 81021-3, 2776- #### [facility] ([id number]) [address], [address] [place] [address] pH (Bld) 7.290 [pH] Low 7.350-7.45 0 [facility] Comment on above: Performed By: #### C BCA, PINR, 86741-8, CMP, 90004-9, 2776-1 #### [facility] ([id number]) [address], [address] [place] [address] SAMPLE SITE [place] Normal [facility] Comment on above: Performed By: #### C BCA, PINR, 30729-8, CMP, 07894-6, 2776- #### [facility] ([id number]) [address], [address] [place] [address] SAMPLE TYPE ARTERIAL Normal [facility] Comment on above: Performed By: #### C BCA, PINR, 50414-1, CMP, , 2776-08 #### [facility] ([id number]) [address], [address] [place] [address] BASIC METABOLIC PANLon 08-22 Anion gap [Moles/Vol] 9 mmol/L Normal 5-15 [facility] Comment on above: Performed By: #### C BCA, PINR, 93791-0, CMP, , 2776- #### [facility] ([id number]) [address], [address] [place] [address] Calcium [Mass/Vol] 7.5 mg/dL Low 8.5-10.5 [facility] Comment on above: Performed By: #### C BCA, PINR, 91201-9, CMP, , 2776- #### [facility] ([id number]) [address], [address] [place] [address] Chloride [Moles/Vol] 112 mmol/L High 98-109 [facility] Comment on above: Performed By: #### C BCA, PINR, 96375-1, CMP, , 2776-08 #### [facility] ([id number]) [address], [address] [place] [address] CO2 [Moles/Vol] 19 mmol/L Low 22-32 [facility] Comment on above: Performed By: #### C BCA, PINR, 43106-1, CMP, , 2776-08 #### [facility] ([id number]) [address], [address] [place] [address] Creatinine [Mass/Vol] 2.04 mg/dL High 0.40-1.00 [facility] Comment on above: Result Comment: METH OD TRACEABLE TO IDMS STANDARD Performed By: #### C BCA, PINR, 79515-4, CMP, , 2776-08 #### [facility] ([id number]) [address], [address] [place] [address] GFR/1.73 sq M.predicted among non-blacks MDRD (S/P/Bld) [Vol rate/Area] 23 mL/min/{1.73_m2} Low >59 [facility] Comment on above: Result Comment: Reported eGFR is based on the CKD-EPI 2020 equation that does not use a race coefficient. Performed By: #### C BCA, PINR, 66698-8, CMP, , 2776-08 #### [facility] ([id number]) [address], [address] [place] [address] Glucose [Mass/Vol] 141 mg/dL High 65-99 [facility] Comment on above: Performed By: #### C BCA, PINR, 86745-3, CMP, , 2776-08 #### [facility] ([id number]) [address], [address] [place] [address] Potassium [Moles/Vol] 4.8 mmol/L Normal 3.5-5.0 [facility] Comment on above: Performed By: #### C BCA, PINR, 97784-4, CMP, , 2776-08 #### [facility] ([id number]) [address], [address] [place] [address] Sodium [Moles/Vol] 140 mmol/L Normal 134-146 [facility] Comment on above: Performed By: #### C BCA, PINR, 46401-7, CMP, , 2776-08 #### [facility] ([id number]) [address], [address] [place] [address] Urea nitrogen [Mass/Vol] 45 mg/dL High 5-27 [facility] Comment on above: Performed By: #### C BCA, PINR, 54087-7, CMP, , 2776-08 #### [facility] ([id number]) [address], [address] [place] [address] Anion gap [Moles/Vol] 9 mmol/L Normal 5-15 [facility] Comment on above: Performed By: #### C BCA, PINR, 01610-6, CMP, , 2776-08 #### [facility] ([id number]) [address], [address] [place] [address] Calcium [Mass/Vol] 7.7 mg/dL Low 8.5-10.5 [facility] Comment on above: Performed By: #### C BCA, PINR, 73625-4, CMP, , 2776-08 #### [facility] ([id number]) [address], [address] [place] [address] Chloride [Moles/Vol] 110 mmol/L High 98-109 [facility] Comment on above: Performed By: #### C BCA, PINR, 74163-0, CMP, , 2776-08 #### [facility] ([id number]) [address], [address] [place] [address] CO2 [Moles/Vol] 21 mmol/L Low 22-32 [facility] Comment on above: Performed By: #### C BCA, PINR, 81102-1, CMP, , 2776-08 #### [facility] ([id number]) [address], [address] [place] [address] Creatinine [Mass/Vol] 2.01 mg/dL High 0.40-1.00 [facility] Comment on above: Result Comment: METH OD TRACEABLE TO IDMS STANDARD Performed By: #### C BCA, PINR, 86817-2, CMP, , 2776-08 #### [facility] ([id number]) [address], [facility] [address] [place] [address] GFR/1.73 sq M.predicted among non-blacks MDRD (S/P/Bld) [Vol rate/Area] 23 mL/min/{1.73_m2} Low >59 [facility] Comment on above: Result Comment: Reported eGFR is based on the CKD-EPI 2020 equation that does not use a race coefficient. Performed By: #### C BCA, PINR, 87313-5, CMP, , 2776-08 #### [facility] ([id number]) [address], [address] [place] [address] Glucose [Mass/Vol] 102 mg/dL High 65-99 [facility] Comment on above: Performed By: #### C BCA, PINR, 33551-3, CMP, , 2776-08 #### [facility] ([id number]) [address] [place] [address] Potassium [Moles/Vol] 4.8 mmol/L Normal 3.5-5.0 [facility] Comment on above: Performed By: #### C BCA, PINR, 18592-3, CMP, , 2776-08 #### [facility] ([id number]) [address] [place] [address] Sodium [Moles/Vol] 140 mmol/L Normal 134-146 [facility] Comment on above: Performed By: #### C BCA, PINR, 28248-1, CMP, , 2776- #### [facility] ([id number]) [address], [address] [place] [address] Urea nitrogen [Mass/Vol] 42 mg/dL High 5-27 [facility] Comment on above: Performed By: #### C BCA, PINR, 73272-4, CMP, , 2776-08 #### [facility] ([id number]) [address] [place] [address] Anion gap [Moles/Vol] 14 mmol/L Normal 5-15 [facility] Comment on above: Performed By: #### C BCA, PINR, 36830-8, CMP, , 2776-08 #### [facility] ([id number]) [address], [address] [place] [address] Calcium [Mass/Vol] 8.3 mg/dL Low 8.5-10.5 [facility] Comment on above: Performed By: #### C BCA, PINR, 26220-8, CMP, , 2776-08 #### [facility] ([id number]) [address], [address] [place] [address] Chloride [Moles/Vol] 107 mmol/L Normal 98-109 [facility] Comment on above: Performed By: #### C BCA, PINR, 67362-7, CMP, , 2776- #### [facility] ([id number]) [address], [address] [place] [address] CO2 [Moles/Vol] 18 mmol/L Low 22-32 [facility] Comment on above: Performed By: #### C BCA, PINR, 72149-6, CMP, , 2776-08 #### [facility] ([id number]) [address], [address] [place] [address] Creatinine [Mass/Vol] 1.82 mg/dL High 0.40-1.00 [facility] Comment on above: Result Comment: METH OD TRACEABLE TO IDMS STANDARD Performed By: #### C BCA, PINR, 76646-6, CMP, , 2776-08 #### [facility] ([id number]) [address], [address] [place] [address] GFR/1.73 sq M.predicted among non-blacks MDRD (S/P/Bld) [Vol rate/Area] 26 mL/min/{1.73_m2} Low >59 [facility] Comment on above: Result Comment: Reported eGFR is based on the CKD-EPI 2020 equation that does not use a race coefficient. Performed By: #### C BCA, PINR, 37559-8, CMP, , 2776-08 #### [facility] ([id number]) [address], [address] [place] [address] Glucose [Mass/Vol] 54 mg/dL Low 65-99 [facility] Comment on above: Performed By: #### C BCA, PINR, 58351-9, CMP, , 2776-08 #### [facility] ([id number]) [address], [address] [place] [address] Potassium [Moles/Vol] 5.2 mmol/L High 3.5-5.0 [facility] Comment on above: Performed By: #### C BCA, PINR, 46439-9, CMP, , 2776- #### [facility] ([id number]) [address], [address] [place] [address] Sodium [Moles/Vol] 139 mmol/L Normal 134-146 [facility] Comment on above: Performed By: #### C BCA, PINR, 92628-2, CMP, , 2776-08 #### [facility] ([id number]) [address], [address] [place] [address] Urea nitrogen [Mass/Vol] 38 mg/dL High 5-27 [facility] Comment on above: Performed By: #### C BCA, PINR, 50230-9, CMP, , 2776-08 #### [facility] ([id number]) [address], [address] [place] [address] COMPLETE BLOOD COUNTon 08-22 Erythrocyte distribution width (RBC) [Ratio] 13.9 % Normal 11.5-15.0 [facility] Comment on above: Performed By: #### C BCA, PINR, 21499-4, CMP, , 2776-08 #### [facility] ([id number]) [address] [address] [place] [address] Hematocrit (Bld) [Volume fraction] 38.6 % Normal 35-47 [facility] Comment on above: Performed By: #### C BCA, PINR, 03768-5, CMP, , 2776-08 #### [facility] ([id number]) [address], [address] [place] [address] Hemoglobin (Bld) [Mass/Vol] 12.9 g/dL Normal 11.7-15.5 [facility] Comment on above: Performed By: #### C BCA, PINR, 33966-2, CMP, , 2776-08 #### [facility] ([id number]) [address], [address] [place] [address] MCH (RBC) [Entitic mass] 31.1 pg Normal 27-34 [facility] Comment on above: Performed By: #### C BCA, PINR, 21967-4, CMP, 17751-3, 2776-08 #### [facility] ([id number]) [address], [address] [place] [address] MCHC (RBC) [Mass/Vol] 33.4 g/dL Normal 32-36 [facility] Comment on above: Performed By: #### C BCA, PINR, 50703-6, CMP, , 2776-08 #### [facility] ([id number]) [address], [facility] [address] [place] [address] MCV (RBC) [Entitic vol] 93 fL Normal 80-[address] [facility] Comment on above: Performed By: #### C BCA, PINR, 90393-8, CMP, , 2776-08 #### [facility] ([id number]) [address], [address] [place] [address] Platelet mean volume (Bld) [Entitic vol] 8.6 fL Normal 7-12 [facility] Comment on above: Performed By: #### C BCA, PINR, 94959-1, CMP, , 2776-08 #### [facility] ([id number]) [address], [address] [place] [address] Platelets (Bld) [#/Vol] 201 10*3/uL Normal 150-450 [facility] Comment on above: Performed By: #### C BCA, PINR, 55321-9, CMP, , 2776-08 #### [facility] ([id number]) [address], [address] [place] [address] RBC COUNT 4.14 X10E12/L Normal 3.80-5.20 [facility] Comment on above: Performed By: #### C BCA, PINR, 06767-6, CMP, , 2776-08 #### [facility] ([id number]) [address], [address] [place] [address] WBC (Bld) [#/Vol] 16.4 10*3/uL High 4.0-11.0 [facility] Comment on above: Performed By: #### C BCA, PINR, 32832-0, CMP, , 2776-08 #### [facility] ([id number]) [address], [address] [place] [address] Calcium.ionized (Bld) [Mass/ Vol]on 08-22-2024 IONIZED CALCIUM 4.5 mg/dL Normal 4.5-5.3 [facility] Comment on above: Performed By: #### C BCA, PINR, 41421-5, CMP, , 2776-08 #### [facility] ([id number]) [address], [address] [place] [address] Creatinine (U) [Mass/Vol]on 08-22-2024 URINE CREATININE,RDM 92.86 mg/dL Normal [facility] Comment on above: Performed By: #### C BCA, PINR, 48826-0, CMP, , 2776-08 #### [facility] ([id number]) [address], [address] [place] [address] Glucose Glucometer (BldC) [M ass/Vol]on 08-22-2024 Glucose [Mass/Vol] 73 mg/dL Normal 65-99 [facility] Glucose [Mass/Vol] 88 mg/dL Normal 65-99 [facility] Lactate (P sherron) [Moles/Vol]o n 08-22-2024 Lactate [Moles/Vol] 3.6 mmol/L High 0.4-2.0 [facility] Comment on above: Performed By: #### C BCA, PINR, 64492-1, CMP, , 2776-08 #### [facility] ([id number]) [address], [address] [place] [address] LACTATE W/REFLEX 3.4 mmol/L High 0.4-2.0 [facility] Comment on above: Performed By: #### C BCA, PINR, 37700-1, CMP, , 2776-08 #### [facility] ([id number]) [address], [address] [place] [address] LACTATE W/REFLEX 3.2 mmol/L High 0.4-2.0 [facility] Comment on above: Performed By: #### C BCA, PINR, 57449-1, CMP, , 2776-08 #### [facility] ([id number]) [address], [address] [place] [address] Lactate [Moles/Vol] 3.5 mmol/L High 0.4-2.0 [facility] Comment on above: Performed By: #### C BCA, PINR, 13099-5, CMP, , 2776-08 #### [facility] ([id number]) [address], [address] [place] [address] LACTATE W/REFLEX 2.8 mmol/L High 0.4-2.0 [facility] Comment on above: Performed By: #### C BCA, PINR, 19560-7, CMP, , 2776-08 #### [facility] ([id number]) [address], [address] [place] [address] MAGNESIUMon 08-22-2024 Magnesium [Mass/Vol] 3.0 mg/dL High 1.8-2.6 [facility] Comment on above: Performed By: #### C BCA, PINR, 01390-2, CMP, , 2776-08 #### [facility] ([id number]) [address], [address] [place] [address] Magnesium Ionized ISE (Bld) [Moles/Vol]on 08-22-2024 Magnesium [Moles/Vol] 0.79 mmol/L High 0.45-0.74 [facility] Comment on above: Result Comment: NEW REFERENCE RANGE Performed By: #### C BCA, PINR, 57501-7, CMP, , 1 #### [facility] ([id number]) [address], [address] [place] [address] PHOSPHORUSon 08-22-2024 Phosphate [Mass/Vol] 5.1 mg/dL High 2.4-4.9 [facility] Comment on above: Performed By: #### C BCA, PINR, 47463-4, CMP, , 2776-08 #### [facility] ([id number]) [address], [address] [place] [address] URINE SODIUM,RANDOMon 2023 Sodium (U) [Moles/Vol] 21 mmol/L Normal [facility] Comment on above: Performed By: #### C BCA, PINR, 48932-4, CMP, , 2776-08 #### [facility] ([id number]) [address], [address] [place] [address] XR CHEST 1 VWon 08-22-2024 XR CHEST 1 VW XR CHEST 1 VW Single view chest XR CHEST 1 VW History: intubated, eval for possible extubation Comparison: August 21 Impression: * Tubes and lines are unchanged * Minimal perihilar parenchymal abnormality without improvement allowing for poor inspiration. Finalized by Abilio Parks MD on 08/22/2024 6:49 AM Normal [facility] ARTERIAL BLOOD GASon 024 ANDRE'S TEST Normal [facility] Comment on above: Performed By: #### A BG #### [facility] ([id number]) [address] [place] [address] BASE,DEFICIT 6.0 MMOL/L High 0.0-2.0 [facility] Comment on above: Performed By: #### A BG #### [facility] ([id number]) [address] [place] [address] Body temperature 98.6 [degF] Normal 37.0 [facility] Comment on above: Performed By: #### A BG #### [facility] ([id number]) [address] [place] [address] HCO3 (Bld) [Moles/Vol] 20.5 mmol/L Low 22-[address] [facility] Comment on above: Performed By: #### A BG #### [facility] ([id number]) [address] [place] [address] INSP. O2 CONC. 100 % Normal [facility] Comment on above: Performed By: #### A BG #### [facility] ([id number]) [address] [place] [address] Oxygen (Bld) [Partial pressure] 502 mm[Hg] High 80-100 [facility] Comment on above: Performed By: #### A BG #### [facility] ([id number]) [address] [place] [address] Oxygen saturation in Blood 100.0 % Normal >90 [facility] Comment on above: Performed By: #### A BG #### [facility] ([id number]) [address] [place] [address] OXYGEN SOURCE Vent Normal [facility] Comment on above: Performed By: #### A BG #### [facility] ([id number]) [address] [place] [address] PCO2 41.1 MMHG Normal 35-45 [facility] Comment on above: Performed By: #### A BG #### [facility] ([id number]) [address] [place] [address] pH (Bld) 7.306 [pH] Low 7.350-7.45 0 [facility] Comment on above: Performed By: #### A BG #### [facility] ([id number]) [address] [place] [address] SAMPLE SITE Foster Normal [facility] Comment on above: Performed By: #### A BG #### [facility] ([id number]) [address] [place] [address] SAMPLE TYPE ARTERIAL Normal [facility] Comment on above: Performed By: #### A BG #### [facility] ([id number]) [address] [place] [address] BASE,DEFICIT 5.0 MMOL/L High 0.0-2.0 [facility] Comment on above: Performed By: #### A BG #### [facility] ([id number]) [address] [place] [address] HCO3 (Bld) [Moles/Vol] 20.7 mmol/L Low 22-[address] [facility] Comment on above: Performed By: #### A BG #### [facility] ([id number]) [address] [place] [address] INSP. O2 CONC. 24 % Normal [facility] Comment on above: Performed By: #### A BG #### [facility] ([id number]) [address] [place] [address] Oxygen (Bld) [Partial pressure] 109 mm[Hg] High 80-100 [facility] Comment on above: Performed By: #### A BG #### [facility] ([id number]) [address] [place] [address] Oxygen saturation in Blood 98.0 % Normal >90 [facility] Comment on above: Performed By: #### A BG #### [facility] ([id number]) [address] [place] [address] OXYGEN SOURCE NC Normal [facility] Comment on above: Performed By: #### A BG #### [facility] ([id number]) [address] [place] [address] PCO2 41.2 MMHG Normal 35-45 [facility] Comment on above: Performed By: #### A BG #### [facility] ([id number]) [address] [place] [address] pH (Bld) 7.310 [pH] Low 7.350-7.45 0 [facility] Comment on above: Performed By: #### A BG #### [facility] ([id number]) [address] [place] [address] CBC AND AUTO DIFFon 08-21-20 ABSOLUTE BASOPHIL 0.0 X10E9/L Normal 0.0-0.2 [facility] Comment on above: Performed By: #### C BCA, PINR, 67902-0, CMP, , 2776-08 #### [facility] ([id number]) [address], [address] [place] [address] ABSOLUTE NEUTROPHIL 5.2 X10E9/L Normal 1.5-6.6 [facility] Comment on above: Performed By: #### C BCA, PINR, 77902-7, CMP, , 2776-08 #### [facility] ([id number]) [address], [address] [place] [address] Basophils/100 WBC (Bld) 0.1 % Normal [facility] Comment on above: Performed By: #### C BCA, PINR, 71818-4, CMP, , 2776-08 #### [facility] ([id number]) [address], [address] [place] [address] Eosinophils (Bld) [#/Vol] 0.0 10*3/uL Normal 0.0-0.4 [facility] Comment on above: Performed By: #### C BCA, PINR, 06957-3, CMP, , 2776-08 #### [facility] ([id number]) [address], [address] [place] [address] Eosinophils/100 WBC (Bld) 0.3 % Normal [facility] Comment on above: Performed By: #### C BCA, PINR, 08310-4, CMP, , 2776-08 #### [facility] ([id number]) [address], [facility] [address] [place] [address] Erythrocyte distribution width (RBC) [Ratio] 14.0 % Normal 11.5-15.0 [facility] Comment on above: Performed By: #### C BCA, PINR, 94777-8, CMP, , 2776-08 #### [facility] ([id number]) [address], [address] [place] [address] Hematocrit (Bld) [Volume fraction] 41.2 % Normal 35-47 [facility] Comment on above: Performed By: #### C BCA, PINR, 30194-7, CMP, , 2776-08 #### [facility] ([id number]) [address], [address] [place] [address] Hemoglobin (Bld) [Mass/Vol] 14.1 g/dL Normal 11.7-15.5 [facility] Comment on above: Performed By: #### C BCA, PINR, 34503-0, CMP, , 2776-08 #### [facility] ([id number]) [address], [address] [place] [address] Lymphocytes (Bld) [#/Vol] 0.5 10*3/uL Low 1.0-3.5 [facility] Comment on above: Performed By: #### C BCA, PINR, 16753-7, CMP, , 2776-08 #### [facility] ([id number]) [address], [address] [place] [address] Lymphocytes/100 WBC (Bld) 7.6 % Normal [facility] Comment on above: Performed By: #### C BCA, PINR, 05687-0, CMP, , 2776-08 #### [facility] ([id number]) [address], [address] [place] [address] MCH (RBC) [Entitic mass] 32.0 pg Normal 27-34 [facility] Comment on above: Performed By: #### C BCA, PINR, 67644-7, CMP, , 2776-08 #### [facility] ([id number]) [address], [address] [place] [address] MCHC (RBC) [Mass/Vol] 34.1 g/dL Normal 32-36 [facility] Comment on above: Performed By: #### C BCA, PINR, 27226-2, CMP, , 2776-08 #### [facility] ([id number]) [address], [address] [place] [address] MCV (RBC) [Entitic vol] 94 fL Normal 80-[address] [facility] Comment on above: Performed By: #### C BCA, PINR, 48046-3, CMP, , 2776-08 #### [facility] ([id number]) [address], [facility] [address] [place] [address] Monocytes (Bld) [#/Vol] 0.4 10*3/uL Normal 0-0.9 [facility] Comment on above: Performed By: #### C BCA, PINR, 62285-4, CMP, , 2776- #### [facility] ([id number]) [address], [address] [place] [address] Monocytes/100 WBC (Bld) 7.2 % Normal [facility] Comment on above: Performed By: #### C BCA, PINR, 44810-9, CMP, 72429-9, 2776-08 #### [facility] ([id number]) [address], [address] [place] [address] Neutrophils/100 WBC (Bld) 84.8 % Normal [facility] Comment on above: Performed By: #### C BCA, PINR, 22637-5, CMP, 91681-1, 2776-08 #### [facility] ([id number]) [address], [address] [place] [address] Platelet mean volume (Bld) [Entitic vol] 8.5 fL Normal 7-12 [facility] Comment on above: Performed By: #### C BCA, PINR, 82873-9, CMP, , 2776-08 #### [facility] ([id number]) [address], [address] [place] [address] Platelets (Bld) [#/Vol] 213 10*3/uL Normal 150-450 [facility] Comment on above: Performed By: #### C BCA, PINR, 84517-5, CMP, , 2776-08 #### [facility] ([id number]) [address], [address] [place] [address] RBC COUNT 4.40 X10E12/L Normal 3.80-5.20 [facility] Comment on above: Performed By: #### C BCA, PINR, 19204-0, CMP, , 2776-08 #### [facility] ([id number]) [address], [address] [place] [address] WBC (Bld) [#/Vol] 6.2 10*3/uL Normal 4.0-11.0 [facility] Comment on above: Performed By: #### C BCA, PINR, 25597-4, CMP, , 2776-08 #### [facility] ([id number]) [address], [address] [place] [address] Band form neutrophils/100 WBC (Bld) 51.4 % Normal [facility] Comment on above: Performed By: #### C BCA, PINR, 22772-8, CMP, , 2776-08 #### [facility] ([id number]) [address], [facility] [address] [place] [address] Erythrocyte distribution width (RBC) [Ratio] 13.9 % Normal 11.5-15.0 [facility] Comment on above: Performed By: #### C BCA, PINR, 00310-3, CMP, , 2776-08 #### [facility] ([id number]) [address], [address] [place] [address] Hematocrit (Bld) [Volume fraction] 45.5 % Normal 35-47 [facility] Comment on above: Performed By: #### C BCA, PINR, 61580-6, CMP, , 2776-08 #### [facility] ([id number]) [address], [address] [place] [address] Hemoglobin (Bld) [Mass/Vol] 15.4 g/dL Normal 11.7-15.5 [facility] Comment on above: Performed By: #### C BCA, PINR, 37536-4, CMP, , 2776-08 #### [facility] ([id number]) [address], [address] [place] [address] Lymphocytes/100 WBC (Bld) 12.6 % Normal [facility] Comment on above: Performed By: #### C BCA, PINR, 76631-9, CMP, , 2776-08 #### [facility] ([id number]) [address], [address] [place] [address] MCH (RBC) [Entitic mass] 31.6 pg Normal 27-34 [facility] Comment on above: Performed By: #### C BCA, PINR, 61602-3, CMP, , 2776-08 #### [facility] ([id number]) [address], [address] [place] [address] MCHC (RBC) [Mass/Vol] 33.9 g/dL Normal 32-36 [facility] Comment on above: Performed By: #### C BCA, PINR, 10442-3, CMP, , 2776-08 #### [facility] ([id number]) [address], [address] [place] [address] MCV (RBC) [Entitic vol] 93 fL Normal 80-100 [facility] Comment on above: Performed By: #### C BCA, PINR, 64443-3, CMP, , 2776-08 #### [facility] ([id number]) [address], [address] [place] [address] Metamyelocytes/100 WBC (Bld) 14.6 % Normal [facility] Comment on above: Performed By: #### C BCA, PINR, 71108-5, CMP, , 2776-08 #### [facility] ([id number]) [address], [address] [place] [address] Monocytes (Bld) [#/Vol] 0.2 10*3/uL Normal 0-0.9 [facility] Comment on above: Performed By: #### C BCA, PINR, 09620-1, CMP, , 2776-08 #### [facility] ([id number]) [address], [address] [place] [address] Monocytes/100 WBC (Bld) 4.9 % Normal [facility] Comment on above: Performed By: #### C BCA, PINR, 63130-1, CMP, , 2776-08 #### [facility] ([id number]) [address], [address] [place] [address] MYELOCYTE 1.0 % Normal [facility] Comment on above: Performed By: #### C BCA, PINR, 62007-3, CMP, , 2776-08 #### [facility] ([id number]) [address], [address] [place] [address] Neutrophils (Bld) [#/Vol] 2.6 10*3/uL Normal 1.5-6.6 [facility] Comment on above: Performed By: #### C BCA, PINR, 83804-7, CMP, , 2776-08 #### [facility] ([id number]) [address], [address] [place] [address] Platelet mean volume (Bld) [Entitic vol] 8.8 fL Normal 7-12 [facility] Comment on above: Performed By: #### C BCA, PINR, 83307-1, CMP, , 2776-08 #### [facility] ([id number]) [address], [address] [place] [address] Platelets (Bld) [#/Vol] 226 10*3/uL Normal 150-450 [facility] Comment on above: Performed By: #### C BCA, PINR, 28935-6, CMP, , 2776-08 #### [facility] ([id number]) [address], [address] [place] [address] RBC COUNT 4.88 X10E12/L Normal 3.80-5.20 [facility] Comment on above: Performed By: #### C BCA, PINR, 79264-5, CMP, 98549-4, 2776- #### [facility] ([id number]) [address], [address] [place] [address] RBC morphology finding Nom (Bld) NORMAL Normal [facility] Comment on above: Performed By: #### C BCA, PINR, 90746-5, CMP, 92463-9, 2776-1 #### [facility] ([id number]) [address], [address] [place] [address] SEG NEUTROPHIL 15.5 % Normal [facility] Comment on above: Performed By: #### C BCA, PINR, 18411-2, CMP, 56384-2, 2776- #### [facility] ([id number]) [address] [place] [address] WBC (Bld) [#/Vol] 3.8 10*3/uL Low 4.0-11.0 [facility] Comment on above: Performed By: #### C BCA, PINR, 25155-2, CMP, 15117-4, 2776- #### [facility] ([id number]) [address] [place] [address] COMPREHENSIVE METABOLIC PANE Ti 08-21-2024 Albumin [Mass/Vol] 3.0 g/dL Low 3.2-5.3 [facility] Comment on above: Performed By: #### C BCA, PINR, 91995-9, CMP, 93486-2, 2776- #### [facility] ([id number]) [address], [address] [place] [address] ALP [Catalytic activity/Vol] 28 U/L Low 39-130 [facility] Comment on above: Performed By: #### C BCA, PINR, 82488-3, CMP, 33768-6, 2776-1 #### [facility] ([id number]) [address], [address] [place] [address] ALT [Catalytic activity/Vol] 17 U/L Normal 0-31 [facility] Comment on above: Performed By: #### C BCA, PINR, 33631-0, CMP, 93478-1, 2776-08 #### [facility] ([id number]) [address] [place] [address] Anion gap [Moles/Vol] 9 mmol/L Normal 5-15 [facility] Comment on above: Performed By: #### C BCA, PINR, 96580-4, CMP, 02285-0, 2776- #### [facility] ([id number]) [address] [place] [address] AST [Catalytic activity/Vol] 16 U/L Normal 0-41 [facility] Comment on above: Performed By: #### C BCA, PINR, 95911-9, CMP, , 2776-08 #### [facility] ([id number]) [address], [address] [place] [address] Bilirubin [Mass/Vol] 0.8 mg/dL Normal 0.3-1.2 [facility] Comment on above: Performed By: #### C BCA, PINR, 35174-7, CMP, , 2776-08 #### [facility] ([id number]) [address], [address] [place] [address] Calcium [Mass/Vol] 8.4 mg/dL Low 8.5-10.5 [facility] Comment on above: Performed By: #### C BCA, PINR, 64955-9, CMP, , 2776-08 #### [facility] ([id number]) [address], [address] [place] [address] Chloride [Moles/Vol] 109 mmol/L Normal 98-109 [facility] Comment on above: Performed By: #### C BCA, PINR, 88586-6, CMP, , 2776-08 #### [facility] ([id number]) [address], [address] [place] [address] CO2 [Moles/Vol] 21 mmol/L Low 22-32 [facility] Comment on above: Performed By: #### C BCA, PINR, 46628-0, CMP, , 2776-08 #### [facility] ([id number]) [address], [address] [place] [address] Creatinine [Mass/Vol] 1.47 mg/dL High 0.40-1.00 [facility] Comment on above: Result Comment: METH OD TRACEABLE TO IDMS STANDARD Performed By: #### C BCA, PINR, 97977-1, CMP, , 2776-08 #### [facility] ([id number]) [address], [address] [place] [address] GFR/1.73 sq M.predicted among non-blacks MDRD (S/P/Bld) [Vol rate/Area] 34 mL/min/{1.73_m2} Low >59 [facility] Comment on above: Result Comment: Reported eGFR is based on the CKD-EPI 2020 equation that does not use a race coefficient. Performed By: #### C BCA, PINR, 24547-6, CMP, , 2776-08 #### [facility] ([id number]) [address], [address] [place] [address] Glucose [Mass/Vol] 78 mg/dL Normal 65-99 [facility] Comment on above: Performed By: #### C BCA, PINR, 98368-5, CMP, , 2776-08 #### [facility] ([id number]) [address], [address] [place] [address] Potassium [Moles/Vol] 4.7 mmol/L Normal 3.5-5.0 [facility] Comment on above: Performed By: #### C BCA, PINR, 77127-4, CMP, , 2776-08 #### [facility] ([id number]) [address], [address] [place] [address] Protein [Mass/Vol] 4.2 g/dL Low 6.0-8.0 [facility] Comment on above: Performed By: #### C BCA, PINR, 50593-3, CMP, , 2776-08 #### [facility] ([id number]) [address], [address] [place] [address] Sodium [Moles/Vol] 139 mmol/L Normal 134-146 [facility] Comment on above: Performed By: #### C BCA, PINR, 09298-6, CMP, , 2776-08 #### [facility] ([id number]) [address], [address] [place] [address] Urea nitrogen [Mass/Vol] 33 mg/dL High 5-27 [facility] Comment on above: Performed By: #### C BCA, PINR, 98721-3, CMP, , 2776-08 #### [facility] ([id number]) [address], [address] [place] [address] Albumin [Mass/Vol] 2.7 g/dL Low 3.2-5.3 [facility] Comment on above: Performed By: #### C BCA, PINR, 53218-6, CMP, , 2776-08 #### [facility] ([id number]) [address], [address] [place] [address] ALP [Catalytic activity/Vol] 37 U/L Low 39-130 [facility] Comment on above: Performed By: #### C BCA, PINR, 37398-8, CMP, , 2776- #### [facility] ([id number]) [address], [address] [place] [address] ALT [Catalytic activity/Vol] 14 U/L Normal 0-31 [facility] Comment on above: Performed By: #### C BCA, PINR, 24185-6, CMP, , 2776-08 #### [facility] ([id number]) [address], [address] [place] [address] AST [Catalytic activity/Vol] 15 U/L Normal 0-41 [facility] Comment on above: Performed By: #### C BCA, PINR, 73720-6, CMP, , 2776-08 #### [facility] ([id number]) [address], [address] [place] [address] Bilirubin [Mass/Vol] 0.6 mg/dL Normal 0.3-1.2 [facility] Comment on above: Performed By: #### C BCA, PINR, 68101-2, CMP, , 2776-08 #### [facility] ([id number]) [address], [address] [place] [address] Calcium [Mass/Vol] 7.8 mg/dL Low 8.5-10.5 [facility] Comment on above: Performed By: #### C BCA, PINR, 05135-0, CMP, , 2776-08 #### [facility] ([id number]) [address], [address] [place] [address] Chloride [Moles/Vol] 106 mmol/L Normal 98-109 [facility] Comment on above: Performed By: #### C BCA, PINR, 89507-8, CMP, , 2776-08 #### [facility] ([id number]) [address], [address] [place] [address] CO2 [Moles/Vol] 24 mmol/L Normal 22-32 [facility] Comment on above: Performed By: #### C BCA, PINR, 83773-4, CMP, , 2776- #### [facility] ([id number]) [address], [address] [place] [address] Creatinine [Mass/Vol] 1.20 mg/dL High 0.40-1.00 [facility] Comment on above: Result Comment: METH OD TRACEABLE TO IDMS STANDARD Performed By: #### C BCA, PINR, 24050-5, CMP, , 2776-08 #### [facility] ([id number]) [address], [facility] [address] [place] [address] GFR/1.73 sq M.predicted among non-blacks MDRD (S/P/Bld) [Vol rate/Area] 43 mL/min/{1.73_m2} Low >59 [facility] Comment on above: Result Comment: Reported eGFR is based on the CKD-EPI 2020 equation that does not use a race coefficient. Performed By: #### C BCA, PINR, 83112-5, CMP, , 2776-08 #### [facility] ([id number]) [address] [address] [place] [address] Glucose [Mass/Vol] 113 mg/dL High 65-99 [facility] Comment on above: Performed By: #### C BCA, PINR, 53687-8, CMP, , 2776-08 #### [facility] ([id number]) [address] [address] [place] [address] Potassium [Moles/Vol] 4.2 mmol/L Normal 3.5-5.0 [facility] Comment on above: Performed By: #### C BCA, PINR, 77357-2, CMP, , 2776- #### [facility] ([id number]) [address], [address] [place] [address] Protein [Mass/Vol] 4.1 g/dL Low 6.0-8.0 [facility] Comment on above: Performed By: #### C BCA, PINR, 80718-7, CMP, , 2776-08 #### [facility] ([id number]) [address], [address] [place] [address] Urea nitrogen [Mass/Vol] 31 mg/dL High 5-27 [facility] Comment on above: Performed By: #### C BCA, PINR, 31657-1, CMP, , 2776-08 #### [facility] ([id number]) [address], [address] [place] [address] Lactate (P sherron) [Moles/Vol]o n 08-21-2024 Lactate [Moles/Vol] 2.2 mmol/L High 0.4-2.0 [facility] Comment on above: Performed By: #### C BCA, PINR, 28639-5, CMP, , 2776-08 #### [facility] ([id number]) [address], [address] [place] [address] Lactate [Moles/Vol] 2.1 mmol/L High 0.4-2.0 [facility] Comment on above: Performed By: #### C BCA, PINR, 21906-0, CMP, , 2776-08 #### [facility] ([id number]) [address], [address] [place] [address] LACTATE W/REFLEX 2.1 mmol/L High 0.4-2.0 [facility] Comment on above: Performed By: #### C BCA, PINR, 40183-6, CMP, , 2776-08 #### [facility] ([id number]) [address], [address] [place] [address] LACTATE W/REFLEX 3.1 mmol/L High 0.4-2.0 [facility] Comment on above: Performed By: #### C BCA, PINR, 51381-8, CMP, , 2776-08 #### [facility] ([id number]) [address], [address] [place] [address] MAGNESIUMon 08-21-2024 Magnesium [Mass/Vol] 1.4 mg/dL Low 1.8-2.6 [facility] Comment on above: Performed By: #### C BCA, PINR, 22157-8, CMP, , 2776-08 #### [facility] ([id number]) [address], [address] [place] [address] Magnesium [Mass/Vol] 1.5 mg/dL Low 1.8-2.6 [facility] Comment on above: Performed By: #### C BCA, PINR, 38125-4, CMP, , 2776-08 #### [facility] ([id number]) [address], [address] [place] [address] PHOSPHORUSon 08-21-2024 Phosphate [Mass/Vol] 4.4 mg/dL Normal 2.4-4.9 [facility] Comment on above: Performed By: #### C BCA, PINR, 25075-7, CMP, , 2776-08 #### [facility] ([id number]) [address], [address] [place] [address] Phosphate [Mass/Vol] 3.3 mg/dL Normal 2.4-4.9 [facility] Comment on above: Performed By: #### C BCA, PINR, 08686-2, CMP, , 2776-08 #### [facility] ([id number]) [address], [address] [place] [address] PROTIME AND INRon 08-21-2024 INR Coag (PPP) [Relative time] 1.0 {INR} Normal 0.8-1.1 [facility] Comment on above: Performed By: #### C BCA, PINR, 12377-1, CMP, 04190-3, 7-1 #### [facility] ([id number]) [address] [place] [address], [address] [place] [address] PT Coag (PPP) [Time] 11.5 s Normal 9.8-13.2 [facility] Comment on above: Performed By: #### C BCA, PINR, 41719-5, CMP, 65801-8, 7-1 #### [facility] ([id number]) [address] [place] [address], [address] [place] [address] Surgical Pathologyon 024 Surgical Pathology Normal [facility] Comment on above: Result Comment: [facility] [address] [place] [address] Surgical Pathology Consultation Patient Name:ANA EDWARDS:1935 (Age: 89)Gender:FTaken:4Reported:08/29/2024hysician(s):Mingo Tam MD ([phone])Copy To: Rec. #:[id number]: #[id number] Final Pathologic Diagnosis Sigmoid colon, colectomy: Diverticular disease with diverticulitis, peridiverticular acute inflammation and focal acute serositis consistent with perforation. No malignancy identified. 3 benign pericolonic lymph nodes. Report Electronically Signed Out ssi/08/29/2024Estuardo Harris M.D. Interpretation performed at [facility], [address] [place] [address], License number: [id number]. Clinical History Perforated viscous. Gross Description Received in formalin labeled WEHR, sigmoid colon Specimen Organ(s)/tissue(s) included: Sigmoid colon Unfixed/fixed: Fixed in 10% formalin Number of pieces: One Dimensions: 42.5 cm in length by 3.5-5.0 cm in diameter Orientation: None Diverticula Number: An abundant amount (approximately 75-100) Location: Spread throughout the entire length of the specimen Perforation: No. There are multiple large and deep diverticula; however, no perforations are identified. Inflammatory mass: Absent Adjacent serosal surface: Gutierrez-arellano, smooth and glistening Additional pathologic findings, if present: The remainder of the mucosa is pink-gutierrez and glistening. Cassettes: A-E- loss control representative diverticula F- three intact possible lymph nodes (6, ss, [id number], m6) [facility]/08/22/2024O Specimen(s) Received sigmoid colon Fee Codes(s): 1; [address] Troponin I.cardiac High sens itivity method [Mass/Vol]on 08-21-2024 1 HOUR TROP I, HIGH SENSITIVITY 37 ng/L High <16 [facility] Comment on above: Result Comment: Elevations of hs-Troponin may be due to causes other than myocardial ischemia. Recommend serial hs-Troponin testing be performed. For the initial evaluation and management of chest pain patients, refer to the algorithms linked below. Emergency Patient: [email or web address] Inpatient: [email or web address] Performed By: #### C BCA, PINR, 67236-0, CMP, 41961-9, 2777-1 #### [facility] ([id number]) [address], [address] [place] [address] XR ABDOMEN AP 1 VWon 024 XR ABDOMEN AP 1 VW XR ABDOMEN AP 1 VW History: NG tube placed Exam/Technique: Semiupright view of the chest and upper abdomen Comparison: 04/28/2024 Findings: Endotracheal tube tip is 4.8 cm above the dia. Right-sided central venous catheter tip at the SVC. Enteric tube tip is present at the pyloric segment of the stomach. There is nonobstructive bowel gas pattern IMPRESSION: Enteric tube tip is in the stomach. Finalized by Raul Gonzales MD on 08/21/2024 6:09 PM Normal [facility] XR CHEST 1 VWon 08-21-2024 XR CHEST 1 VW XR CHEST 1 VW History: ETT in place Exam/Technique: Single AP view of the chest was obtained Comparison: 1:19 PM x-ray Findings: Endotracheal tube tip is 4.8 cm above the dia. Enteric tube tip overlying the pyloric segment of the stomach. Right-sided central venous catheter tip at the SVC. Cardiac size is within normal range. Lungs are grossly clear. There is no pleural effusion or pneumothorax IMPRESSION: Support lines as described above. Finalized by Raul Gonzales MD on 08/21/2024 5:54 PM Normal [facility] XR CHEST 1 VW XR CHEST 1 VW XR CHEST 1 VW: 08/21/2024 1:14 PM Clinical: Upright portable chest obtained. No comparison Right central line tip is in the expected location of the cavoatrial junction. Heart size is normal. No acute consolidation, large effusion, or pneumothorax. IMPRESSION: * No acute disease to limits of this portable exam. Finalized by Jeet Espinoza MD on 08/21/2024 1:42 PM Normal [facility] XR HIPS BILAT W OR WO PELVIS [...] Redmond MD on 08/16/2024 11:50 PM Normal [facility] XR LUMBAR SPINE AP, LATERAL, FLEXION AND [...] Sultana MD on 08/16/2024 11:20 PM Normal [facility] No Panel Informationon 07-20 FRANK Hughes 07/20/2024 [...] on 07-14-2024 Appearance (U) Urine appearance Clear [facility] Bacteria [Presence] in Urine by AutomatedOrdered By: Sakshi Ojeda on 07-14-2024 Bacteria Auto Ql (U) Bacteria [Presence] in Urine by Automated None Seen [facility] Bilirubin Test strip Ql (U)O rdered By: Sakshi Ojeda on 07-14-2024 Bilirubin Ql (U) Bilirubin.total [Presence] in Urine by Test strip Negative [facility] Color Auto (U)Ordered By: Ab fidencio Ojeda on 07-14-2024 Color (U) Color of Urine by Auto Yellow [facility] Creatinine [Mass/volume] in UrineOrdered By: Sakshi Ojeda on 07-14-2024 Creatinine (U) [Mass/Vol] Creatinine [Mass/volume] in Urine [facility] Comment on above: No reference range e stablished Dipstick and Microscopicon 1 09-13-2023 Appearance (U) Clear Normal Clear [facility] Comment on above: Order Comment: Name Collection Type:: Clean-Voided Midstream Performed By: #### A DDONUAPLUS, PROCRERAT #### [address] Bacteria,Urine None Seen Normal None Seen [facility] Comment on above: Order Comment: Name Collection Type:: Clean-Voided Midstream Performed By: #### A DDONUAPLUS, PROCRERAT #### [place] [address] [place] Bilirubin,Urine Negative Normal Negative [facility] Comment on above: Order Comment: Name Collection Type:: Clean-Voided Midstream Performed By: #### A DDONUAPLUS, PROCRERAT #### [place] [address] [place] Color (U) Light-Yellow Normal Yellow [facility] Comment on above: Order Comment: Name Collection Type:: Clean-Voided Midstream Performed By: #### A DDONUAPLUS, PROCRERAT #### [facility] [address] [place] [address] [place] Glucose Ql (U) Normal Normal Normal [facility] Comment on above: Order Comment: Name Collection Type:: Clean-Voided Midstream Performed By: #### A DDONUAPLUS, PROCRERAT #### [place] [address] [place] Hyaline Casts,Urine None Normal 0-8 [facility] Comment on above: Order Comment: Name Collection Type:: Clean-Voided Midstream Performed By: #### A DDONUAPLUS, PROCRERAT #### [address] [address] [place] Ketones Ql (U) Negative Normal Negative [facility] Comment on above: Order Comment: Name Collection Type:: Clean-Voided Midstream Performed By: #### A DDONUAPLUS, PROCRERAT #### [address] Leukocyte esterase Test strip Ql (U) Negative Normal Negative [facility] Comment on above: Order Comment: Name Collection Type:: Clean-Voided Midstream Performed By: #### A DDONUAPLUS, PROCRERAT #### [place] [address] [place] Mucus,Urine Rare Normal [facility] Comment on above: Order Comment: Name Collection Type:: Clean-Voided Midstream Result Comment: PERF ORMED BY: [place] [address] PATHOLOGIST POWER PROJECT MANAGER AN SANDERS M.D. Performed By: #### A DDONUAPLUS, PROCRERAT #### [place] [address] [place] Nitrite,Urine Negative Normal Negative [facility] Comment on above: Order Comment: Name Collection Type:: Clean-Voided Midstream Performed By: #### A DDONUAPLUS, PROCRERAT #### [place] [address] [place] Occult Blood,Urine Negative Normal Negative [facility] Comment on above: Order Comment: Name Collection Type:: Clean-Voided Midstream Performed By: #### A DDONUAPLUS, PROCRERAT #### [place] [address] [place] pH (U) 6.5 [pH] Normal 5.0-9.0 [facility] Comment on above: Order Comment: Name Collection Type:: Clean-Voided Midstream Performed By: #### A DDONUAPLUS, PROCRERAT #### [place] [address] [place] Protein,Urine Negative Normal Negative [facility] Comment on above: Order Comment: Name Collection Type:: Clean-Voided Midstream Performed By: #### A DDONUAPLUS, PROCRERAT #### [address] RBC,Urine 1 [HPF] Normal 0-4 [facility] Comment on above: Order Comment: Name Collection Type:: Clean-Voided Midstream Performed By: #### A DDONUAPLUS, PROCRERAT #### [address] Specificy [place],Urine 1.019 Normal 1.00 1-1.03 0 [facility] Comment on above: Order Comment: Name Collection Type:: Clean-Voided Midstream Performed By: #### A DDONUAPLUS, PROCRERAT #### [address] Squamous Epithelial Cell,Urine 3 [HPF] High 0-2 [facility] Comment on above: Order Comment: Name Collection Type:: Clean-Voided Midstream Performed By: #### A DDONUAPLUS, PROCRERAT #### [address] Urobilinogen,Urine Normal Normal Normal [facility] Comment on above: Order Comment: Name Collection Type:: Clean-Voided Midstream Performed By: #### A DDONUAPLUS, PROCRERAT #### [address] WBC,Urine 1 [HPF] Normal 0-4 [facility] Comment on above: Order Comment: Name Collection Type:: Clean-Voided Midstream Performed By: #### A DDONUAPLUS, PROCRERAT #### [address] Epithelial cells.squamous [# /area] in Urine sediment by Automated countOrdered By: Sakshi Ojeda on 07-14-2024 Epithelial cells.squamous Auto (Urine sed) [#/Area] Epithelial cells.squamous [#/area] in Urine sediment by Automated count High 0-2 [facility] Erythrocytes [#/area] in Uri ne sediment by Automated countOrdered By: Sakshi Ojeda on 07-14-2024 RBC Auto (Urine sed) [#/Area] Erythrocytes [#/area] in Urine sediment by Automated count 0-4 [facility] Glucose [Mass/volume] in Uri ne by Test stripOrdered By: Sakshi Ojeda on 07-14-2024 Glucose Test strip (U) [Mass/Vol] Glucose [Mass/volume] in Urine by Test strip Normal [facility] Hemoglobin Test strip Ql (U) Ordered By: Sakshi Ojeda on 07-14-2024 Hemoglobin Ql (U) Hemoglobin [Presence ] in Urine by Test strip Negative [facility] Hyaline casts [#/area] in Ur ine sediment by Automated countOrdered By: Sakshi Ojeda on 07-14-2024 Hyaline casts Auto (Urine sed) [#/Area] Hyaline casts [#/area] in Urine sediment by Automated count 0-8 [facility] Ketones Test strip Ql (U)Ord ered By: Sakshi Ojeda on 07-14-2024 Ketones Ql (U) Ketones [Presence] i n Urine by Test strip Negative [facility] Leukocyte esterase [Presence ] in Urine by Test stripOrdered By: Sakshi Ojeda on 07-14-2024 Leukocyte esterase Test strip Ql (U) Leukocyte esterase [Presence] in Urine by Test strip Negative [facility] Leukocytes [#/area] in Urine sediment by Automated countOrdered By: Sakshi Ojeda on 07-14-2024 WBC Auto (Urine sed) [#/Area] Leukocytes [#/area] in Urine sediment by Automated count 0-4 [facility] Mucus [Presence] in Urine by AutomatedOrdered By: Sakshi Ojeda on 07-14-2024 Mucus Auto Ql (U) Mucus [Presence] in Urine by Automated [facility] Nitrite Test strip Ql (U)Ord ered By: Sakshi Ojeda on 07-14-2024 Nitrite Ql (U) Nitrite [Presence] i n Urine by Test strip Negative [facility] Protein Creat Ratio Ur Rando mon 07-14-2024 Creatinine, Urine (Random) 73.00 mg/dL Normal [facility] Comment on above: Result Comment: No r eference range established Performed By: #### A DDONUAPLUS, PROCRERAT #### [facility] [address] [place] [address] [place] Protein (U) [Mass/Vol] 11 mg/dL High 0-9 Th e [facility] Comment on above: Performed By: #### A DDONUAPLUS, PROCRERAT #### [facility] [address] Urine Protein/Creatinine Ratio 151 mg/g{Cre} Normal 0-200 [facility] Comment on above: Result Comment: PERF ORMED BY: [facility] [address] [place] [address] PATHOLOGIST POWER PROJECT MANAGER AN SANDERS M.D. Performed By: #### A DDONUAPLUS, PROCRERAT #### [facility] [address] Protein Test strip (U) [Mass /Vol]Ordered By: Sakshi Ojeda on 07-14-2024 Protein (U) [Mass/Vol] Protein [Mass/vol ume] in Urine by Test strip Negative [facility] Protein [Mass/volume] in Uri neOrdered By: Sakshi Rusty on 07-14-2024 Protein (U) [Mass/Vol] Protein [Mass/vol ume] in Urine High 0-9 [facility] Specific gravity Test strip (U) [Rel density]Ordered By: Sakshi Rusty on 07-14-2024 Specific gravity (U) [Rel density] Specific gravity of Urine by Test strip 1.001-1.03 0 [facility] Urine protein/creatinine rat ioOrdered By: Sakshi Rusty on 07-14-2024 Protein/Creatinine (U) [Ratio] Urine protein/creatinine ratio 0-200 [facility] Urobilinogen Test strip (U) [Mass/Vol]Ordered By: Sakshi Rusty on 07-14-2024 Urobilinogen (U) [Mass/Vol] Urobilinogen [Mass/volume] in Urine by Test strip Normal [facility] pH Test strip (U)Ordered By: Sakshi Ojeda on 07-14-2024 pH (U) pH of Urine by Test strip 5.0-9.0 [facility] Albumin [Mass/volume] in Ser um or Plasma by Bromocresol green (BCG) dye binding methoOrdered By: Sakshi Ojeda on 07-05-2024 Albumin BCG dye [Mass/Vol] 3.9 g/dL 3.5-5.7 [facility] Albumin BCG dye [Mass/Vol] Albumin [Mass/volume] in Serum or Plasma by Bromocresol green (BCG) dye binding metho 3.5-5.7 [facility] Calcium [Mass/volume] in Ser um or PlasmaOrdered By: Sakshi Ojeda on 07-05-2024 Calcium [Mass/Vol] 9.3 mg/dL Normal 8.6-10.3 [facility] Comment on above: Order Comment: Reaso n for Exam Chronic kidney disease, stage III (moderate);Klever ayo w cr FASTING. JKW Performed By: #### U SATYA, MG, RENAL, [id number] #### [facility] [address] Calcium [Mass/Vol] Calcium [Mass/volume ] in Serum or Plasma 8.6-10.3 [facility] Carbon dioxide, total [Moles /volume] in Serum or PlasmaOrdered By: Sakshi Ojeda on 07-05-2024 CO2 [Moles/Vol] 31.2 mmol/L High 21.0-31.0 [facility] Comment on above: Order Comment: Reaso n for Exam Chronic kidney disease, stage III (moderate);Klever hy kid w cr FASTING. JKW Performed By: #### U SATYA, MG, RENAL, [id number] #### [facility] [address] [place] [id number] [place] CO2 [Moles/Vol] Carbon dioxide, tota l [Moles/volume] in Serum or Plasma High 21.0-31.0 [facility] Chloride [Moles/volume] in S elías or PlasmaOrdered By: Sakshi Ojeda on 07-05-2024 Chloride [Moles/Vol] 103 mmol/L Normal 98-107 [facility] Comment on above: Order Comment: Reaso n for Exam Chronic kidney disease, stage III (moderate);Klever hy kid w cr FASTING. JKW Performed By: #### U SATYA, MG, RENAL, [id number] #### [facility] [address] [place] [address] [place] Chloride [Moles/Vol] Chloride [Moles/vol ume] in Serum or Plasma 98-107 [facility] Creatinine [Mass/volume] in Serum or PlasmaOrdered By: Sakshi Rusty on 07-05-2024 Creatinine [Mass/Vol] 1.03 mg/dL Normal 0.60-1.20 [facility] Comment on above: Order Comment: Reaso n for Exam Chronic kidney disease, stage III (moderate);Klever hy kid w cr FASTING. JKW Performed By: #### U SATYA, MG, RENAL, [id number] #### [facility] [address] [place] [id number] [place] Creatinine [Mass/Vol] Creatinine [Mass/v olume] in Serum or Plasma 0.60-1.20 [facility] Erythrocyte distribution wid th Auto (RBC) [Ratio]Ordered By: Sakshi Hudsonr on 07-05-2024 Erythrocyte distribution width (RBC) [Ratio] Erythrocyte distribution width [Ratio] by Automated count 11.9-15.3 [facility] Erythrocyte distribution wid th [Ratio] by Automated countOrdered By: Sakshi Rusty on 07-05-2024 Erythrocyte distribution width (RBC) [Ratio] 13.4 % Normal 11.9-15.3 [facility] Comment on above: Order Comment: Reaso n for Exam Chronic kidney disease, stage III (moderate);Klever hy kid w cr Performed By: #### C BCNO #### [facility] [address] [place] [id number] [place] Erythrocytes [#/volume] in B lood by Automated countOrdered By: Sakshi Rusty on 07-05-2024 RBC (Bld) [#/Vol] 4.01 10*6/uL Normal 3.60-5.00 [facility] Comment on above: Order Comment: Reaso n for Exam Chronic kidney disease, stage III (moderate);Klever terry cr Performed By: #### C BCNO #### [facility] [address] [place] [id number] [place] Glucose [Mass/volume] in Ser um or PlasmaOrdered By: Sakshi Ojeda on 07-05-2024 Glucose [Mass/Vol] 88 mg/dL Normal 70-100 [facility] Comment on above: ADA recommended refe rence rangeRandom Glucose Reference Range is dependent on time and content of last meal. Glucose of more than 200 mg/dL in a nonstressed, ambulatory subject supports the diagnosis of Diabetes Mellitus. Order Comment: Reaso n for Exam Chronic kidney disease, stage III (moderate);Klever terry cr FASTING. JKW Result Comment: [place] om Glucose Reference Range is dependent on time and content of last meal. Glucose of more than 200 mg/dL in a nonstressed, ambulatory subject supports the diagnosis of Diabetes Mellitus. ADA recommended reference range Performed By: #### U SATYA, MG, RENAL, [id number] #### [facility] [address] [id number] [place] Glucose [Mass/Vol] Glucose [Mass/volume ] in Serum or Plasma 70-100 [facility] Comment on above: ADA recommended refe rence rangeRandom Glucose Reference Range is dependent on time and content of last meal. Glucose of more than 200 mg/dL in a nonstressed, ambulatory subject supports the diagnosis of Diabetes Mellitus. Hematocrit Auto (Bld) [Volum e fraction]Ordered By: Sakshi Ojeda on 07-05-2024 Hematocrit (Bld) [Volume fraction] Hematocrit [Volume Fraction] of Blood by Automated count 34.0-46.4 [facility] Hematocrit [Volume Fraction] of Blood by Automated countOrdered By: Sakshi Ojeda on 07-05-2024 Hematocrit (Bld) [Volume fraction] 36.5 % Normal 34.0-46.4 [facility] Comment on above: Order Comment: Reaso n for Exam Chronic kidney disease, stage III (moderate);Klever rollins w cr Performed By: #### C BCNO #### [facility] [address] [place] [address] [place] Hemoglobin [Mass/volume] in BloodOrdered By: Sakshi Ojeda on 07-05-2024 Hemoglobin (Bld) [Mass/Vol] 12.4 g/dL Normal 11.8-15.4 [facility] Comment on above: Order Comment: Reaso n for Exam Chronic kidney disease, stage III (moderate);Klever hy kid w cr Performed By: #### C BCNO #### [place] [id number] [facility] Hemoglobin (Bld) [Mass/Vol] Hemoglobin [Mass/volume] in Blood 11.8-15.4 [facility] Hemogram CBC Without Diffon 07-05-2024 Mean Corpuscular HGB Conc 34.0 g/dL Normal 32.0-35.0 [facility] Comment on above: Order Comment: Reaso n for Exam Chronic kidney disease, stage III (moderate);Klever hy kid w cr Performed By: #### C BCNO #### [address] WBC (Bld) [#/Vol] 4.7 10*3/uL Normal 3.8-11.6 [facility] Comment on above: Order Comment: Reaso n for Exam Chronic kidney disease, stage III (moderate);Klever hy kid w cr Performed By: #### C BCNO #### [address] Leukocytes [#/volume] correc pauline for nucleated erythrocytes in Blood by Automated counOrdered By: Sakshi Ojeda on 07-05-2024 WBC corrected for nucl RBC Auto (Bld) [#/Vol] 4.7 10*3/uL 3.8-11.6 [facility] WBC corrected for nucl RBC Auto (Bld) [#/Vol] Leukocytes [#/volume] corrected for nucleated erythrocytes in Blood by Automated coun 3.8-11.6 [facility] MCH Auto (RBC) [Entitic mass ]Ordered By: Sakshi Ojeda on 07-05-2024 MCH (RBC) [Entitic mass] MCH [Entitic mass] by Automated count 24.7-34.3 [facility] MCH [Entitic mass] by Automa pauline countOrdered By: Sakshi Ojeda on 07-05-2024 MCH (RBC) [Entitic mass] 31.0 pg Normal 24.7-34.3 [facility] Comment on above: Order Comment: Reaso n for Exam Chronic kidney disease, stage III (moderate);Klever hy kid w cr Performed By: #### C BCNO #### [facility] [address] MCHC Auto (RBC) [Mass/Vol]Or dered By: Sakshi Ojeda on 07-05-2024 MCHC (RBC) [Mass/Vol] 34.0 g/dL 32.0-35.0 [facility] MCHC (RBC) [Mass/Vol] MCHC [Mass/volume] by Automated count 32.0-35.0 [facility] MCV Auto (RBC) [Entitic vol] Ordered By: Sakshi Ojeda on 07-05-2024 MCV (RBC) [Entitic vol] MCV [Entitic vol ume] by Automated count 80-100 [facility] MCV [Entitic volume] by Auto mated countOrdered By: Sakshi Ojeda on 07-05-2024 MCV (RBC) [Entitic vol] 91.0 fL Normal 80-100 [facility] Comment on above: Order Comment: Reaso n for Exam Chronic kidney disease, stage III (moderate);Klever brigitte kid w cr Performed By: #### C BCNO #### [facility] [address] Magnesium [Mass/volume] in S elías or PlasmaOrdered By: Sakshi Ojeda on 07-05-2024 Magnesium [Mass/Vol] 1.8 mg/dL Low 1.9-2.7 [facility] Comment on above: Order Comment: Reaso n for Exam Chronic kidney disease, stage III (moderate);Klever kid w cr FASTING. JKW Performed By: #### U SATYA, MG, RENAL, [id number] #### [facility] [address] [id number] [facility] Magnesium [Mass/Vol] Magnesium [Mass/vol ume] in Serum or Plasma Low 1.9-2.7 [facility] No Panel InformationOrdered By: Sakshi Ojeda on 07-05-2024 Estimated GFR (CKD-EPI) 51.974 mL/Min [facility] Creatinine Clearance (Chem N/A [facility] Parathyrin.intact [Mass/volu me] in Serum or PlasmaOrdered By: Sakshi Ojeda on 07-05-2024 Parathyrin.intact [Mass/Vol] 46.4 pg/mL [facility] Parathyrin.intact [Mass/Vol] Parathyrin.intact [Mass/volume] in Serum or Plasma [facility] Parathyroid Hormone Intacton 07-05-2024 Parathyroid Hormone Intact 46.4 pg/mL Normal [facility] Comment on above: Order Comment: Reaso n for Exam Chronic kidney disease, stage III (moderate);Klever bradley Result Comment: PERF ORMED BY: [place] [address] PATHOLOGIST POWER PROJECT MANAGER ALEXIA GARCIA M.D. Performed By: #### P TH #### [facility] [address] [place] [address] [place] Phosphate [Mass/volume] in S elías or PlasmaOrdered By: Sakshi Ojeda on 07-05-2024 Phosphate [Mass/Vol] 3.7 mg/dL Normal 2.5-4.5 [facility] Comment on above: Order Comment: Reaso n for Exam Chronic kidney disease, stage III (moderate);Klever bradley FASTING. JKW Performed By: #### U SATYA, MG, RENAL, [id number] #### [facility] [address] [id number] [place] Phosphate [Mass/Vol] Phosphate [Mass/vol ume] in Serum or Plasma 2.5-4.5 [facility] Platelet mean volume Auto (B ld) [Entitic vol]Ordered By: Sakshi Ojeda on 07-05-2024 Platelet mean volume (Bld) [Entitic vol] Platelet mean volume [Entitic volume] in Blood by Automated count 6.3-10.7 [facility] Platelet mean volume [Entiti c volume] in Blood by Automated countOrdered By: Sakshi Ojeda on 07-05-2024 Platelet mean volume (Bld) [Entitic vol] 9.3 fL Normal 6.3-10.7 [facility] Comment on above: Order Comment: Reaso n for Exam Chronic kidney disease, stage III (moderate);Klever brigitte rollins w cr Result Comment: PERF ORMED BY: [place] [address] PATHOLOGIST POWER PROJECT MANAGER ALEXIA GARCIA M.D. Performed By: #### C BCNO #### [facility] [address] [place] [address] [place] Platelets Auto (Bld) [#/Vol] Ordered By: Sakshi Ojeda on 07-05-2024 Platelets (Bld) [#/Vol] Platelets [#/vol ume] in Blood by Automated count 150-450 [facility] Platelets [#/volume] in Bloo d by Automated countOrdered By: Sakshi Ojeda on 07-05-2024 Platelets (Bld) [#/Vol] 199 10*3/uL Normal 150-450 [facility] Comment on above: Order Comment: Reaso n for Exam Chronic kidney disease, stage III (moderate);Klever brigitte rollins w cr Performed By: #### C BCNO #### [facility] [address] [place] [address] [place] Potassium [Moles/volume] in Serum or PlasmaOrdered By: Sakshi Ojeda on 07-05-2024 Potassium [Moles/Vol] 4.1 mmol/L Normal 3.5-5.1 [facility] Comment on above: Order Comment: Reaso n for Exam Chronic kidney disease, stage III (moderate);Klever hy kid w cr FASTING. JKW Performed By: #### U SATYA, MG, RENAL, [id number] #### [facility] [address] [place] [address] [place] Potassium [Moles/Vol] Potassium [Moles/v olume] in Serum or Plasma 3.5-5.1 [facility] RBC Auto (Bld) [#/Vol]Ordere d By: Sakshi Ojeda on 07-05-2024 RBC (Bld) [#/Vol] Erythrocytes [#/volu me] in Blood by Automated count 3.60-5.00 [facility] Renal Function Panelon 07-05 Albumin [Mass/Vol] 3.9 g/dL Normal 3.5-5.7 [facility] Comment on above: Order Comment: Reaso n for Exam Chronic kidney disease, stage III (moderate);Klever hy kid w cr FASTING. JKW Performed By: #### U SATYA, MG, RENAL, [id number] #### [facility] [address] GFR/1.73 sq M.predicted MDRD (S/P/Bld) [Vol rate/Area] 51.974 mL/min/{1.73_m2} Normal [facility] Comment on above: Order Comment: Reaso n for Exam Chronic kidney disease, stage III (moderate);Klever hy kid w cr FASTING. JKW Performed By: #### U SATYA, MG, RENAL, [id number] #### [facility] [address] Serum or plasma anion gap de terminationOrdered By: Sakshi Ojeda on 07-05-2024 Anion gap [Moles/Vol] 9.9 mmol/L Normal 6.0-15.0 [facility] Comment on above: Order Comment: Reaso n for Exam Chronic kidney disease, stage III (moderate);Klever hy kid w cr FASTING. JKW Performed By: #### U SATYA, MG, RENAL, [id number] #### [facility] [address] [id number] [facility] Anion gap [Moles/Vol] Serum or plasma an ion gap determination 6.0-15.0 [facility] Sodium [Moles/volume] in Ser um or PlasmaOrdered By: Sakshi Ojeda on 07-05-2024 Sodium [Moles/Vol] 140 mmol/L Normal 136-145 [facility] Comment on above: Order Comment: Reaso n for Exam Chronic kidney disease, stage III (moderate);Klever hy kid w cr FASTING. JKW Performed By: #### U SATYA, MG, RENAL, [id number] #### [facility] [address] [place] [address] [place] Sodium [Moles/Vol] Sodium [Moles/volume ] in Serum or Plasma 136-145 [facility] Urate [Mass/volume] in Serum or PlasmaOrdered By: Sakshi Ojeda on 07-05-2024 Urate [Mass/Vol] 4.3 mg/dL Normal 2.3-6.6 [facility] Comment on above: Order Comment: Reaso n for Exam Chronic kidney disease, stage III (moderate);Klever hy kid w cr FASTING. JKW Performed By: #### U SATYA, MG, RENAL, [id number] #### [facility] [address] [place] [address] [place] Urate [Mass/Vol] Urate [Mass/volume] in Serum or Plasma 2.3-6.6 [facility] Urea nitrogen [Mass/volume] in Serum or PlasmaOrdered By: Sakshi Ojeda on 07-05-2024 Urea nitrogen [Mass/Vol] 22 mg/dL Normal 7-25 [facility] Comment on above: Order Comment: Reaso n for Exam Chronic kidney disease, stage III (moderate);Klever hy kid w cr FASTING. JKW Performed By: #### U SATYA, MG, RENAL, [id number] #### [facility] [address] [place] [address] [place] Urea nitrogen [Mass/Vol] Urea nitrogen [Mass/volume] in Serum or Plasma 7-25 [facility] Vitamin D 25 Hydroxy Totalon 07-05-2024 Vitamin D 25 Hydroxy Total 48.1 ng/mL Normal 30-100 [facility] Comment on above: Order Comment: Reaso n for Exam Chronic kidney disease, stage III (moderate);Klever hy kid w cr FASTING. JKW Result Comment: ELIJAH MIN D STATUS 25([place])VITAMIN D RANGE (ng/mL) Deficient <20 Insufficient 20 to <30 Sufficient 30 to 100 Reference: Rafa MF,Julianna NC, Usama MENARD, et al. Evaluation,treatment, and prevention of vitamin D deficiency; an Endocrine Society clinical practice guideline. JCEM. 2010; 96(7):1911-. PERFORMED BY: [facility] [address] [place] [address] PATHOLOGIST POWER PROJECT MANAGER ALEXIA GARCIA M.D. Performed By: #### U SATYA, MG, RENAL, [id number] #### [facility] [address] Vitamin D+Metabolites [Mass/ volume] in Serum or PlasmaOrdered By: Sakshi Ojeda on 07-05-2024 Vitamin D+Metabolites [Mass/Vol] 48.1 ng/mL 30-100 [facility] Comment on above: VITAMIN D STATUS 25( [place])VITAMIN D RANGE (ng/mL) Deficient <20 Insufficient 20 to <30Sufficient 30 to 100Reference: Rafa CHÁVEZ,Julianna LACEY, Usama MENARD, et al. Evaluation,treatment, and prevention of vitamin D deficiency; an Endocrine Society clinical practice guideline. JCEM. 2010; 96(7):1911-30. Vitamin D+Metabolites [Mass/Vol] Vitamin D+Metabolites [Mass/volume] in Serum or Plasma 30-100 [facility] Comment on above: VITAMIN D STATUS 25( [place])VITAMIN D RANGE (ng/mL) Deficient <20 Insufficient 20 to <30Sufficient 30 to 100Reference: Rafa CHÁVEZ,Julianna LACEY, Usama MENARD, et al. Evaluation,treatment, and prevention of vitamin D deficiency; an Endocrine Society clinical practice guideline. JCEM. 2010; 96(7):1911-30. CBC AND AUTO DIFFon 04-28-20 24 ABSOLUTE BASOPHIL 0.0 X10E9/L Normal 0.0-0.2 [facility] Comment on above: Performed By: #### C EVITA, 3040-3, CBCA #### [facility] ([id number]) [address] [place] [address], [place] [address] ABSOLUTE NEUTROPHIL 6.0 X10E9/L Normal 1.5-6.6 [facility] Comment on above: Performed By: #### C EVITA, 3040-3, CBCA #### [facility] ([id number]) [address] [place] [address]357 Basophils/100 WBC (Bld) 0.4 % Normal [facility] Comment on above: Performed By: #### C EVITA, 3039-3, CBCA #### [facility] ([id number]) [address] [place] [address] Eosinophils (Bld) [#/Vol] 0.1 10*3/uL Normal 0.0-0.4 [facility] Comment on above: Performed By: #### C EVITA, 3039-10, CBCA #### [facility] ([id number]) [address] [place] [address] 88067 Eosinophils/100 WBC (Bld) 1.3 % Normal [facility] Comment on above: Performed By: #### C EVITA, 3039-10, CBCA #### [facility] ([id number]) [address] [place] [address] Erythrocyte distribution width (RBC) [Ratio] 12.9 % Normal 11.5-15.0 [facility] Comment on above: Performed By: #### C EVITA, 3039-10, CBCA #### [facility] ([id number]) [address] [place] [address] 227[address] Hematocrit (Bld) [Volume fraction] 35.3 % Normal 35-47 [facility] Comment on above: Performed By: #### C EVITA, 3039-10, CBCA #### [facility] ([id number]) [address] [place] [address]17 Hemoglobin (Bld) [Mass/Vol] 12.0 g/dL Normal 11.7-15.5 [facility] Comment on above: Performed By: #### C EVITA, 3, CBCA #### [facility] ([id number]) [address] [place] [address] 79084 Lymphocytes (Bld) [#/Vol] 1.2 10*3/uL Normal 1.0-3.5 [facility] Comment on above: Performed By: #### C EIVTA, 3039-10, CBCA #### [facility] ([id number]) [address] [place] [address] 07719 Lymphocytes/100 WBC (Bld) 14.8 % Normal [facility] Comment on above: Performed By: #### C EVITA, 3039-10, CBCA #### [facility] ([id number]) [address] [place] [address] 57471 MCH (RBC) [Entitic mass] 31.2 pg Normal 27-34 [facility] Comment on above: Performed By: #### C EVITA, 3039-10, CBCA #### [facility] ([id number]) [address] [place] [address]16 MCHC (RBC) [Mass/Vol] 34.1 g/dL Normal 32-36 [facility] Comment on above: Performed By: #### Gely JAMA, 3039-10, CBCA #### [facility] ([id number]) [address] [place] [address] 94745 MCV (RBC) [Entitic vol] 91 fL Normal 80-100 [facility] Comment on above: Performed By: #### Gely JAMA, 3039-10, CBCA #### [facility] ([id number]) [address] [place] [address] 32407 Monocytes (Bld) [#/Vol] 0.8 10*3/uL Normal 0-0.9 [facility] Comment on above: Performed By: #### Gely JAMA, 3039-10, CBCA #### [facility] ([id number]) [address] [place] [address] 59204 Monocytes/100 WBC (Bld) 9.5 % Normal [facility] Comment on above: Performed By: #### C EVITA, 0-3, CBCA #### [facility] ([id number]) [address] [place] [address] 85437 Neutrophils/100 WBC (Bld) 74.0 % Normal [facility] Comment on above: Performed By: #### C EVITA, 3039-3, CBCA #### [facility] ([id number]) [address] [place] [address] 39187 Platelet mean volume (Bld) [Entitic vol] 10.0 fL Normal 7-12 [facility] Comment on above: Performed By: #### C EVITA, 3, CBCA #### [facility] ([id number]) [address] [place] [address] 19154 Platelets (Bld) [#/Vol] 226 10*3/uL Normal 150-450 [facility] Comment on above: Performed By: #### C EVITA, 3, CBCA #### [facility] ([id number]) [address] [place] [address] 45671 RBC COUNT 3.86 X10E12/L Normal 3.80-5.20 [facility] Comment on above: Performed By: #### C EVITA, 3, CBCA #### [facility] ([id number]) [address] [place] [address]236 WBC (Bld) [#/Vol] 8.1 10*3/uL Normal 4.0-11.0 [facility] Comment on above: Performed By: #### C EVITA, 3039-3, CBCA #### [facility] ([id number]) [address] [place] [address] 10697 COMPREHENSIVE METABOLIC PANE Ti 04-28-2024 Albumin [Mass/Vol] 3.6 g/dL Normal 3.2-5.3 [facility] Comment on above: Performed By: #### C EVITA, 3039-3, CBCA #### [facility] ([id number]) [address] [place] [address] 18017 ALP [Catalytic activity/Vol] 57 U/L Normal 39-130 [facility] Comment on above: Performed By: #### C EVITA, 3039-3, CBCA #### [facility] ([id number]) [address] [place] [address] 51600 ALT [Catalytic activity/Vol] 14 U/L Normal 0-31 [facility] Comment on above: Performed By: #### C EVITA, 3039-10, CBCA #### [facility] ([id number]) [address] [place] [address] 41695 Anion gap [Moles/Vol] 8 mmol/L Normal 5-15 [facility] Comment on above: Performed By: #### C EVITA, 3, CBCA #### [facility] ([id number]) [address] [place] [address] 66470 AST [Catalytic activity/Vol] 17 U/L Normal 0-41 [facility] Comment on above: Performed By: #### C EVITA, 3, CBCA #### [facility] ([id number]) [address] [place] [address] [place] [address] Bilirubin [Mass/Vol] 0.7 mg/dL Normal 0.3-1.2 [facility] Comment on above: Performed By: #### Gely JAMA, 3039-3, CBCA #### [facility] ([id number]) [address] [place] [address] 25667 Calcium [Mass/Vol] 8.9 mg/dL Normal 8.5-10.5 [facility] Comment on above: Performed By: #### Gely JAMA, 3039-3, CBCA #### [facility] ([id number]) [address] [place] [address] 54809 Chloride [Moles/Vol] 102 mmol/L Normal 98-109 [facility] Comment on above: Performed By: #### C EVITA, 3039-10, CBCA #### [facility] ([id number]) [address] [place] [address] 27266 CO2 [Moles/Vol] 28 mmol/L Normal 22-32 [facility] Comment on above: Performed By: #### C EVITA, 3039-10, CBCA #### [facility] ([id number]) [address] [place] [address] 30839 Creatinine [Mass/Vol] 1.08 mg/dL High 0.40-1.00 [facility] Comment on above: Result Comment: METH OD TRACEABLE TO IDMS STANDARD Performed By: #### C EVITA, 3039-10, CBCA #### [facility] ([id number]) [address] [place] [address] 16947 GFR/1.73 sq M.predicted among non-blacks MDRD (S/P/Bld) [Vol rate/Area] 49 mL/min/{1.73_m2} Low >59 [facility] Comment on above: Result Comment: Reported eGFR is based on the CKD-EPI 2020 equation that does not use a race coefficient. Performed By: #### C EVITA, 3039-10, CBCA #### [facility] ([id number]) [address] [place] [address] 18618 Glucose [Mass/Vol] 88 mg/dL Normal 65-99 [facility] Comment on above: Performed By: #### C EVITA, 3039-10, CBCA #### [facility] ([id number]) [address] [place] [address] 17656 Potassium [Moles/Vol] 3.5 mmol/L Normal 3.5-5.0 [facility] Comment on above: Performed By: #### C EVIAT, 3040-3, CBCA #### [facility] ([id number]) [address] [place] [address] 77189 Protein [Mass/Vol] 6.2 g/dL Normal 6.0-8.0 [facility] Comment on above: Performed By: #### C EVITA, 3040-3, CBCA #### [facility] ([id number]) [address] [place] [address] 88231 Sodium [Moles/Vol] 138 mmol/L Normal 134-146 [facility] Comment on above: Performed By: #### C EVITA, 3040-3, CBCA #### [facility] ([id number]) [address] [place] [address] 98445 Urea nitrogen [Mass/Vol] 28 mg/dL High 5-27 [facility] Comment on above: Performed By: #### C EVITA, 3040-3, CBCA #### [facility] ([id number]) [address] [place] [address] 72729 LIPASEon 04-28-2024 Lipase [Catalytic activity/Vol] 21 U/L Normal 17-40 [facility] Comment on above: Performed By: #### C EVITA, 3040-3, CBCA #### [facility] ([id number]) [address] [place] [address] 80047 XR ABDOMEN COMP DECUB ERECTo n 04-28-2024 XR ABDOMEN COMP DECUB ERECT XR ABDOMEN COMP DECUB ERECT Abdomen: HISTORY: Abdominal pain. 3 views of the abdomen were obtained. Bowel gas pattern is nonspecific and nonobstructive. Colonic stool burden is moderate. No free air. Lumbar degenerative changes noted with levoscoliosis. IMPRESSION: Moderate colonic stool. Finalized by Jose C Wilcox MD on 04/28/2024 2:05 PM Normal [facility] MR LUMBAR SPINE WO CONTon MR LUMBAR [...] Hernandez MD on 11/26/2023 1:59 AM Normal [facility] CBC AND AUTO DIFFon 10-27-19 ABSOLUTE BASOPHIL 0.0 X10E9/L Normal 0.0-0.2 [facility] Comment on above: Performed By: #### C BCA, CMP, 3016-3, 302-7 #### [facility] ([id number]) [address], [address] [place] [address] ABSOLUTE NEUTROPHIL 3.0 X10E9/L Normal 1.5-6.6 [facility] Comment on above: Performed By: #### C BCA, CMP, 3016-3, 302-7 #### [facility] ([id number]) [address], [address] [place] [address] Basophils/100 WBC (Bld) 0.5 % Normal [facility] Comment on above: Performed By: #### C BCA, CMP, 6-3, 302-7 #### [facility] ([id number]) [address], [address] [place] [address] Eosinophils (Bld) [#/Vol] 0.2 10*3/uL Normal 0.0-0.4 [facility] Comment on above: Performed By: #### C BCA, CMP, 6-3, 302-7 #### [facility] ([id number]) [address], [address] [place] [address] Eosinophils/100 WBC (Bld) 3.7 % Normal [facility] Comment on above: Performed By: #### C BCA, CMP, 3016-3, 3024-7 #### [facility] ([id number]) [address], [address] [place] [address] Erythrocyte distribution width (RBC) [Ratio] 13.3 % Normal 11.5-15.0 [facility] Comment on above: Performed By: #### C BCA, CMP, 6-3, 3024-7 #### [facility] ([id number]) [address], [address] [place] [address] Hematocrit (Bld) [Volume fraction] 34.9 % Low 35-47 [facility] Comment on above: Performed By: #### C BCA, CMP, 3016-3, 302-7 #### [facility] ([id number]) [address], [address] [place] [address] Hemoglobin (Bld) [Mass/Vol] 12.0 g/dL Normal 11.7-15.5 [facility] Comment on above: Performed By: #### C BCA, CMP, 6-3, 3023-7 #### [facility] ([id number]) [address] [place] [address] Lymphocytes (Bld) [#/Vol] 1.1 10*3/uL Normal 1.0-3.5 [facility] Comment on above: Performed By: #### C BCA, CMP, 6-3, 3023-7 #### [facility] ([id number]) [address] [place] [address] Lymphocytes/100 WBC (Bld) 23.4 % Normal [facility] Comment on above: Performed By: #### C BCA, CMP, 6-3, 302-7 #### [facility] ([id number]) [address] [place] [address] MCH (RBC) [Entitic mass] 30.8 pg Normal 27-34 [facility] Comment on above: Performed By: #### C BCA, CMP, 6-3, 3024-7 #### [facility] ([id number]) [address] [place] [address] MCHC (RBC) [Mass/Vol] 34.3 g/dL Normal 32-36 [facility] Comment on above: Performed By: #### C BCA, CMP, 3016-3, 3023-7 #### [facility] ([id number]) [address] [place] [address] MCV (RBC) [Entitic vol] 90 fL Normal 80-100 [facility] Comment on above: Performed By: #### C BCA, CMP, 6-3, 3023-7 #### [facility] ([id number]) [address] [place] [address] Monocytes (Bld) [#/Vol] 0.4 10*3/uL Normal 0-0.9 [facility] Comment on above: Performed By: #### C BCA, CMP, 6-3, 3023-7 #### [facility] ([id number]) [address], [facility] [place] [address] Monocytes/100 WBC (Bld) 8.8 % Normal [facility] Comment on above: Performed By: #### C BCA, CMP, 6-3, 3023-7 #### [facility] ([id number]) [address] [place] [address] Neutrophils/100 WBC (Bld) 63.6 % Normal [facility] Comment on above: Performed By: #### C BCA, CMP, 6-3, 3023-7 #### [facility] ([id number]) [address] [place] [address] Platelet mean volume (Bld) [Entitic vol] 9.9 fL Normal 7-12 [facility] Comment on above: Performed By: #### C BCA, CMP, 6-3, 3023-7 #### [facility] ([id number]) [address] [place] [address] Platelets (Bld) [#/Vol] 173 10*3/uL Normal 150-450 [facility] Comment on above: Performed By: #### C BCA, CMP, 3016-3, 302-7 #### [facility] ([id number]) [address] [place] [address] RBC COUNT 3.89 X10E12/L Normal 3.80-5.20 [facility] Comment on above: Performed By: #### C BCA, CMP, 6-3, 302-7 #### [facility] ([id number]) [address] [place] [address] WBC (Bld) [#/Vol] 4.7 10*3/uL Normal 4.0-11.0 [facility] Comment on above: Performed By: #### C BCA, CMP, 6-3, 3023-7 #### [facility] ([id number]) [address] [place] [address] COMPREHENSIVE METABOLIC PANE Ti 10-27-2023 Albumin [Mass/Vol] 3.8 g/dL Normal 3.2-5.3 [facility] Comment on above: Performed By: #### C BCA, CMP, 6-3, 302-7 #### [facility] ([id number]) [address] [place] [address] ALP [Catalytic activity/Vol] 45 U/L Normal 39-130 [facility] Comment on above: Performed By: #### C BCA, CMP, 6-3, 302-7 #### [facility] ([id number]) [address] [place] [address] ALT [Catalytic activity/Vol] 10 U/L Normal 0-31 [facility] Comment on above: Performed By: #### C BCA, CMP, 6-3, 3024-7 #### [facility] ([id number]) [address] [place] [address] Anion gap [Moles/Vol] 6 mmol/L Normal 5-15 [facility] Comment on above: Performed By: #### C BCA, CMP, 3016-3, 3024-7 #### [facility] ([id number]) [address] [place] [address] AST [Catalytic activity/Vol] 15 U/L Normal 0-41 [facility] Comment on above: Performed By: #### C BCA, CMP, 6-3, 3024-7 #### [facility] ([id number]) [address] [place] [address] Bilirubin [Mass/Vol] 0.6 mg/dL Normal 0.3-1.2 [facility] Comment on above: Performed By: #### C BCA, CMP, 6-3, 3024-7 #### [facility] ([id number]) [address] [place] [address] Calcium [Mass/Vol] 9.1 mg/dL Normal 8.5-10.5 [facility] Comment on above: Performed By: #### C BCA, CMP, 6-3, 3024-7 #### [facility] ([id number]) [address] [place] [address] Chloride [Moles/Vol] 107 mmol/L Normal 98-109 [facility] Comment on above: Performed By: #### C BCA, CMP, 3016-3, 3024-7 #### [facility] ([id number]) [address] [address] [address] [place] [address] CO2 [Moles/Vol] 29 mmol/L Normal 22-32 [facility] Comment on above: Performed By: #### C BCA, CMP, 3016-3, 3024-7 #### [facility] ([id number]) [address] [place] [address] Creatinine [Mass/Vol] 1.15 mg/dL High 0.40-1.00 [facility] Comment on above: Result Comment: METH OD TRACEABLE TO IDMS STANDARD Performed By: #### C CONY HURLEY, 3015-3, 7 #### [facility] ([id number]) [address] [place] [address] GFR/1.73 sq M.predicted among non-blacks MDRD (S/P/Bld) [Vol rate/Area] 46 mL/min/{1.73_m2} Low >59 [facility] Comment on above: Result Comment: Reported eGFR is based on the CKD-EPI 2020 equation that does not use a race coefficient. Performed By: #### C OCNY HURLEY, 3015-3, 7 #### [facility] ([id number]) [address] [place] [address] Glucose [Mass/Vol] 80 mg/dL Normal 65-99 [facility] Comment on above: Performed By: #### C CONY HURLEY, 3, 7 #### [facility] ([id number]) [address] [place] [address] Potassium [Moles/Vol] 3.9 mmol/L Normal 3.5-5.0 [facility] Comment on above: Performed By: #### C CONY HURLEY, 3, 7 #### [facility] ([id number]) [address] [place] [address] Protein [Mass/Vol] 5.9 g/dL Low 6.0-8.0 [facility] Comment on above: Performed By: #### C MEI CMP, 3015-3, 3023-7 #### [facility] ([id number]) [address] [place] [address] Sodium [Moles/Vol] 142 mmol/L Normal 134-146 [facility] Comment on above: Performed By: #### C MEI CMP, 3016-3, 3024-7 #### [facility] ([id number]) [address] [place] [address] Urea nitrogen [Mass/Vol] 25 mg/dL Normal 01-24 [facility] Comment on above: Performed By: #### C BCA, CMP, 3016-3, 3024-7 #### [facility] ([id number]) [address] [place] [address] FREE T4on 10-27-2023 Free T4 [Mass/Vol] 1.26 ng/dL Normal 0.61-1.60 [facility] Comment on above: Performed By: #### C BCA, CMP, 3016-3, 3024-7 #### [facility] ([id number]) [address] [place] [address] TSH Qnon 10-27-2023 TSH 1.06 uIU/mL Normal 0.49-4.67 [facility] Comment on above: Performed By: #### C BCA, CMP, 3016-3, 3024-7 #### [facility] ([id number]) [address] [place] [address] Alanine aminotransferase [En zymatic activity/volume] in Serum or PlasmaOrdered By: Fan Elliott on 07-14-2023 ALT [Catalytic activity/Vol] 10 U/L [facility] Albumin [Mass/volume] in Ser um or Plasma by Bromocresol green (BCG) dye binding methoOrdered By: Sakshi Ojeda on 07-14-2023 Albumin BCG dye [Mass/Vol] 4.0 g/dL 3.5-5.7 [facility] Calcium [Mass/volume] in Ser um or PlasmaOrdered By: Sakshi Ojeda on 07-14-2023 Calcium [Mass/Vol] 9.4 mg/dL 8.6-10.3 [facility] Carbon dioxide, total [Moles /volume] in Serum or PlasmaOrdered By: Sakshi Ojeda on 07-14-2023 CO2 [Moles/Vol] 31.2 mmol/L 21.0-31.0 [facility] Chloride [Moles/volume] in S elías or PlasmaOrdered By: Sakshi Ojeda on 07-14-2023 Chloride [Moles/Vol] 102 mmol/L 98-107 [facility] Creatinine [Mass/volume] in Serum or PlasmaOrdered By: Sakshi Ojeda on 07-14-2023 Creatinine [Mass/Vol] 1.10 mg/dL 0.60-1.20 [facility] Erythrocyte distribution wid th Auto (RBC) [Ratio]Ordered By: Sakshi Ojeda on 07-14-2023 Erythrocyte distribution width (RBC) [Ratio] 12.8 % 11.9-15.3 [facility] Glucose [Mass/volume] in Ser um or PlasmaOrdered By: Sakshi Ojeda on 07-14-2023 Glucose [Mass/Vol] 88 mg/dL 70-100 [facility] Comment on above: ADA recommended refe rence rangeRandom Glucose Reference Range is dependent on time and content of last meal. Glucose of more than 200 mg/dL in a nonstressed, ambulatory subject supports the diagnosis of Diabetes Mellitus. Hematocrit Auto (Bld) [Volum e fraction]Ordered By: Sakshi Ojeda on 07-14-2023 Hematocrit (Bld) [Volume fraction] 36.5 % 34.0-46.4 [facility] Hemoglobin [Mass/volume] in BloodOrdered By: Skashi Ojeda 07-14-2023 Hemoglobin (Bld) [Mass/Vol] 12.5 g/dL 11.8-15.4 [facility] Iron [Mass/volume] in Serum or PlasmaOrdered By: Sakshi Ojeda 07-14-2023 Iron [Mass/Vol] 82 ug/dL 50-212 [facility] Iron binding capacity [Mass/ volume] in Serum or PlasmaOrdered By: Sakshi Ojeda on 07-14-2023 Iron binding capacity [Mass/Vol] 325 ug/dL 255-450 [facility] Iron saturation [Mass Fracti on] in Serum or PlasmaOrdered By: Sakshi Ojeda on 07-14-2023 Iron saturation [Mass fraction] 25.2 % 20-50 [facility] Leukocytes [#/volume] correc pauline for nucleated erythrocytes in Blood by Automated counOrdered By: Sakshi Ojeda on 07-14-2023 WBC corrected for nucl RBC Auto (Bld) [#/Vol] 5.4 10*3/uL 3.8-11.6 [facility] MCH Auto (RBC) [Entitic mass ]Ordered By: Sakshi Ojeda on 07-14-2023 MCH (RBC) [Entitic mass] 30.5 pg 24.7-34.3 [facility] MCHC Auto (RBC) [Mass/Vol]Or dered By: Sakshi Ojeda on 07-14-2023 MCHC (RBC) [Mass/Vol] 34.4 g/dL 32.0-35.0 [facility] MCV Auto (RBC) [Entitic vol] Ordered By: Sakshi Ojeda on 07-14-2023 MCV (RBC) [Entitic vol] 88.8 fL 80-100 [facility] Magnesium [Mass/volume] in S elías or PlasmaOrdered By: Sakshi Ojeda on 07-14-2023 Magnesium [Mass/Vol] 2.0 mg/dL 1.9-2.7 [facility] No Panel InformationOrdered By: Sakshi Ojeda on 07-14-2023 Estimated GFR (CKD-EPI) 48.331 mL/Min [facility] Creatinine Clearance (Chem N/A [facility] Parathyrin.intact [Mass/volu me] in Serum or PlasmaOrdered By: Sakshi Ojeda on 07-14-2023 Parathyrin.intact [Mass/Vol] 59.3 pg/mL 12-88 [facility] Phosphate [Mass/volume] in S elías or PlasmaOrdered By: Sakshi Ojeda on 07-14-2023 Phosphate [Mass/Vol] 3.6 mg/dL 2.5-4.5 [facility] Platelet mean volume Auto (B ld) [Entitic vol]Ordered By: Sakshi Ojeda on 07-14-2023 Platelet mean volume (Bld) [Entitic vol] 8.9 fL 6.3-10.7 [facility] Platelets Auto (Bld) [#/Vol] Ordered By: Sakshi Ojeda on 07-14-2023 Platelets (Bld) [#/Vol] 253 10*3/uL 150-450 [facility] Potassium [Moles/volume] in Serum or PlasmaOrdered By: Sakshi Rusty on 07-14-2023 Potassium [Moles/Vol] 3.3 mmol/L 3.5-5.1 [facility] RBC Auto (Bld) [#/Vol]Ordere d By: Sakshi Rusty on 07-14-2023 RBC (Bld) [#/Vol] 4.11 10*6/uL 3.60-5.00 [facility] Serum or plasma anion gap de terminationOrdered By: Sakshi Rusty on 07-14-2023 Anion gap [Moles/Vol] 9.1 mmol/L 6.0-15.0 [facility] Sodium [Moles/volume] in Ser um or PlasmaOrdered By: Sakshi Ojeda on 07-14-2023 Sodium [Moles/Vol] 139 mmol/L 136-145 [facility] Transferrin [Mass/volume] in Serum or PlasmaOrdered By: Sakshi Rusty on 07-14-2023 Transferrin [Mass/Vol] 232 mg/dL 203-362 [facility] Urate [Mass/volume] in Serum or PlasmaOrdered By: Sakshi Rusty on 07-14-2023 Urate [Mass/Vol] 6.5 mg/dL 2.3-6.6 [facility] Urea nitrogen [Mass/volume] in Serum or PlasmaOrdered By: Sakshi Rusty on 07-14-2023 Urea nitrogen [Mass/Vol] 21 mg/dL 7-25 [facility] Vitamin D+Metabolites [Mass/ volume] in Serum or PlasmaOrdered By: Sakshi Rusty on 07-14-2023 Vitamin D+Metabolites [Mass/Vol] 78.7 ng/mL 30-100 [facility] Comment on above: VITAMIN D STATUS [...] aPTT Coag (PPP) [Time] 27.1 s 25.1-36.5 [facility] Comment on above: A hematocrit value g reater than 55% may lead to inaccurate results in coagulation testing. Patients having hematocrit values >55% require a special collection tube for coagulation studies. Please contact the laboratory at [phone] for redraw instructions. Basophils Auto (Bld) [#/Vol] Ordered By: Peewee Jackson on 06-18-2023 Basophils (Bld) [#/Vol] 0.0 10*3/uL 0.0-0.2 [facility] Basophils/100 WBC Auto (Bld) Ordered By: Peewee Jackson on 06-18-2023 Basophils/100 WBC (Bld) 0.2 % . [facility] Calcium [Mass/volume] in Ser um or PlasmaOrdered By: Peewee Jackson on 06-18-2023 Calcium [Mass/Vol] 9.4 mg/dL 8.6-10.3 [facility] Carbon dioxide, total [Moles /volume] in Serum or PlasmaOrdered By: Peewee Jackson on 06-18-2023 CO2 [Moles/Vol] 28.8 mmol/L 21.0-31.0 [facility] Chloride [Moles/volume] in S elías or PlasmaOrdered By: Peewee Jackson on 06-18-2023 Chloride [Moles/Vol] 104 mmol/L 98-107 [facility] Creatinine [Mass/volume] in Serum or PlasmaOrdered By: Peewee Jackson on 06-18-2023 Creatinine [Mass/Vol] 0.95 mg/dL 0.60-1.20 [facility] Eosinophils Auto (Bld) [#/Vo l]Ordered By: Peewee Jackson on 06-18-2023 Eosinophils (Bld) [#/Vol] 0.0 10*3/uL 0.0-0.45 [facility] Eosinophils/100 WBC Auto (Bl d)Ordered By: Peewee Jackson on 06-18-2023 Eosinophils/100 WBC (Bld) 0.4 % . [facility] Erythrocyte distribution wid th Auto (RBC) [Ratio]Ordered By: Peewee Jackson on 06-18-2023 Erythrocyte distribution width (RBC) [Ratio] 12.4 % 11.9-15.3 [facility] Glucose [Mass/volume] in Ser um or PlasmaOrdered By: Peweee Jackson on 06-18-2023 Glucose [Mass/Vol] 90 mg/dL 70-100 [facility] Comment on above: ADA recommended refe rence rangeRandom Glucose Reference Range is dependent on time and content of last meal. Glucose of more than 200 mg/dL in a nonstressed, ambulatory subject supports the diagnosis of Diabetes Mellitus. Hematocrit Auto (Bld) [Volum e fraction]Ordered By: Peewee Jackson on 06-18-2023 Hematocrit (Bld) [Volume fraction] 33.8 % 34.0-46.4 [facility] Hemoglobin [Mass/volume] in BloodOrdered By: Peewee Jackson on 06-18-2023 Hemoglobin (Bld) [Mass/Vol] 11.5 g/dL 11.8-15.4 [facility] INR in Platelet poor plasma by Coagulation assayOrdered By: Peewee Jackson on 06-18-2023 INR Coag (PPP) [Relative time] 1.0 {INR} [facility] Comment on above: INR Therapeutic Rang [...] RBC Auto (Bld) [#/Vol] 6.2 10*3/uL 3.8-11.6 [facility] Lymphocytes Auto (Bld) [#/Vo l]Ordered By: Peewee Jackson on 06-18-2023 Lymphocytes (Bld) [#/Vol] 1.4 10*3/uL 1.00-4.8 [facility] Lymphocytes/100 WBC Auto (Bl d)Ordered By: Peewee Jackson on 06-18-2023 Lymphocytes/100 WBC (Bld) 22.6 % . [facility] MCH Auto (RBC) [Entitic mass ]Ordered By: Peewee Jackson on 06-18-2023 MCH (RBC) [Entitic mass] 30.2 pg 24.7-34.3 [facility] MCHC Auto (RBC) [Mass/Vol]Or dered By: Peewee Jackson on 06-18-2023 MCHC (RBC) [Mass/Vol] 34.0 g/dL 32.0-35.0 [facility] MCV Auto (RBC) [Entitic vol] Ordered By: Peewee Jackson on 06-18-2023 MCV (RBC) [Entitic vol] 89.0 fL 80-100 [facility] Monocyte distribution width [Entitic volume] in Blood by AutomatedOrdered By: Peewee Jackson on 06-18-2023 Monocyte distribution width Auto (Bld) [Entitic vol] 15.92 % 0.00-20.00 [facility] Monocytes Auto (Bld) [#/Vol] Ordered By: Peewee Jackson on 06-18-2023 Monocytes (Bld) [#/Vol] 0.6 10*3/uL 0.0-0.8 [facility] Monocytes/100 WBC Auto (Bld) Ordered By: Peewee Jackson on 06-18-2023 Monocytes/100 WBC (Bld) 10.4 % . [facility] Natriuretic peptide B [Mass/ Vol]Ordered By: Peewee Jackson on 06-18-2023 Natriuretic peptide B (Bld) [Mass/Vol] 377.0 pg/mL 5-100 [facility] Neutrophils Auto (Bld) [#/Vo l]Ordered By: Peewee Jackson on 06-18-2023 Neutrophils (Bld) [#/Vol] 4.1 10*3/uL 1.8-7.7 [facility] Neutrophils/100 WBC Auto (Bl d)Ordered By: Peewee Jackson on 06-18-2023 Neutrophils/100 WBC (Bld) 66.4 % . [facility] No Panel InformationOrdered By: Peewee Jackson on 06-18-2023 Estimated GFR (CKD-EPI) 57.628 mL/Min [facility] Creatinine Clearance (Chem 34.95 [facility] Nucleated erythrocytes [Pres ence] in Blood by Automated countOrdered By: Peewee Jackson on 06-18-2023 Nucleated RBC Auto Ql (Bld) 0.2 /100{WBC} 0-0.5 [facility] Platelet mean volume Auto (B ld) [Entitic vol]Ordered By: Peewee Jackson on 06-18-2023 Platelet mean volume (Bld) [Entitic vol] 9.5 fL 6.3-10.7 [facility] Platelets Auto (Bld) [#/Vol] Ordered By: Peewee Jackson on 06-18-2023 Platelets (Bld) [#/Vol] 156 10*3/uL 150-450 [facility] Potassium [Moles/volume] in Serum or PlasmaOrdered By: Peewee Jackson on 06-18-2023 Potassium [Moles/Vol] 3.9 mmol/L 3.5-5.1 [facility] Prothrombin time (PT)Ordered By: Peewee Jackson on 06-18-2023 PT Coag (PPP) [Time] 11.5 s 9.0-12.9 [facility] Comment on above: A hematocrit value g reater than 55% may lead to inaccurate results in coagulation testing. Patients having hematocrit values >55% require a special collection tube for coagulation studies. Please contact the laboratory at [phone] for redraw instructions. RBC Auto (Bld) [#/Vol]Ordere d By: Peewee Jackson on 06-18-2023 RBC (Bld) [#/Vol] 3.80 10*6/uL 3.60-5.00 [facility] Serum or plasma anion gap de terminationOrdered By: Peewee Jackson on 06-18-2023 Anion gap [Moles/Vol] 10.1 mmol/L 6.0-15.0 [facility] Sodium [Moles/volume] in Ser um or PlasmaOrdered By: Peewee Jackson on 06-18-2023 Sodium [Moles/Vol] 139 mmol/L 136-145 [facility] Troponin I.cardiac [Mass/vol ume] in Serum or Plasma by Detection limit <= 0.01 ng/Ordered By: Peewee Jackson on 06-18-2023 Troponin I.cardiac DL <= 0.01 ng/mL [Mass/Vol] 17.2 pg/mL 0.0-15.0 [facility] Urea nitrogen [Mass/volume] in Serum or PlasmaOrdered By: Peewee Jackson on 06-18-2023 Urea nitrogen [Mass/Vol] 28 mg/dL 03-24 [facility] WBC Auto (Bld) [#/Vol]Ordere d By: Peewee Jackson on 06-18-2023 WBC (Bld) [#/Vol] 6.2 10*3/uL 3.8-11.6 [facility] Alanine aminotransferase [En zymatic activity/volume] in Serum or PlasmaOrdered By: Fan Elliott on 01-27-2023 ALT [Catalytic activity/Vol] 11 U/L [facility] Basophils Auto (Bld) [#/Vol] Ordered By: Fan Elliott on 01-27-2023 Basophils (Bld) [#/Vol] 0.0 10*3/uL 0.0-0.2 [facility] Basophils/100 WBC Auto (Bld) Ordered By: Fan Elliott on 01-27-2023 Basophils/100 WBC (Bld) 0.7 % . [facility] Calcium [Mass/volume] in Ser um or PlasmaOrdered By: Fan Elliott on 01-27-2023 Calcium [Mass/Vol] 9.4 mg/dL 8.6-10.3 [facility] Carbon dioxide, total [Moles /volume] in Serum or PlasmaOrdered By: Fan Elliott on 01-27-2023 CO2 [Moles/Vol] 33.5 mmol/L 21.0-31.0 [facility] Chloride [Moles/volume] in S elías or PlasmaOrdered By: Fan Elliott on 01-27-2023 Chloride [Moles/Vol] 104 mmol/L 98-107 [facility] Cholesterol [Mass/volume] in Serum or PlasmaOrdered By: Fan Elliott on 01-27-2023 Cholesterol [Mass/Vol] 178 mg/dL 140-200 [facility] Comment on above: Chol less than 200 m g/dl low riskChol 201-239 mg/dl borderline riskChol 240 mg/dl and greater high risk Cholesterol in LDL Calc [Mas s/Vol]Ordered By: Fan Elliott on 01-27-2023 Cholesterol in LDL [Mass/Vol] 97 mg/dL 0-100 [facility] Comment on above: LDL ATP III CLASSIFI CATIONLDL less than 100 mg/dL OptimalLDL 100-129 mg/dL Near or above optimalLDL 130-159 mg/dL Borderline highLDL 160-189 mg/dL HighLDL greater than 189 mg/dL Very high Cholesterol in VLDL Calc [Ma ss/Vol]Ordered By: Fan Elliott on 01-27-2023 Cholesterol in VLDL [Mass/Vol] 14 mg/dL [facility] Creatinine [Mass/volume] in Serum or PlasmaOrdered By: Fan Elliott on 01-27-2023 Creatinine [Mass/Vol] 1.17 mg/dL 0.60-1.20 [facility] Eosinophils Auto (Bld) [#/Vo l]Ordered By: Fan Elliott on 01-27-2023 Eosinophils (Bld) [#/Vol] 0.2 10*3/uL 0.0-0.45 [facility] Eosinophils/100 WBC Auto (Bl d)Ordered By: Fan Elliott on 01-27-2023 Eosinophils/100 WBC (Bld) 4.7 % . [facility] Erythrocyte distribution wid th Auto (RBC) [Ratio]Ordered By: Fan Elliott on 01-27-2023 Erythrocyte distribution width (RBC) [Ratio] 12.6 % 11.9-15.3 [facility] Glucose [Mass/volume] in Ser um or PlasmaOrdered By: Fan Elliott on 01-27-2023 Glucose [Mass/Vol] 87 mg/dL 70-100 [facility] Comment on above: ADA recommended refe rence rangeRandom Glucose Reference Range is dependent on time and content of last meal. Glucose of more than 200 mg/dL in a nonstressed, ambulatory subject supports the diagnosis of Diabetes Mellitus. Hematocrit Auto (Bld) [Volum e fraction]Ordered By: Fan Elliott on 01-27-2023 Hematocrit (Bld) [Volume fraction] 34.6 % 34.0-46.4 [facility] Hemoglobin [Mass/volume] in BloodOrdered By: Fan Elliott on 01-27-2023 Hemoglobin (Bld) [Mass/Vol] 11.9 g/dL 11.8-15.4 [facility] Leukocytes [#/volume] correc pauline for nucleated erythrocytes in Blood by Automated counOrdered By: Fan Elliott on 01-27-2023 WBC corrected for nucl RBC Auto (Bld) [#/Vol] 4.9 10*3/uL 3.8-11.6 [facility] Lymphocytes Auto (Bld) [#/Vo l]Ordered By: Fan Elliott on 01-27-2023 Lymphocytes (Bld) [#/Vol] 1.6 10*3/uL 1.00-4.8 [facility] Lymphocytes/100 WBC Auto (Bl d)Ordered By: Fan Elliott on 01-27-2023 Lymphocytes/100 WBC (Bld) 33.6 % . [facility] MCH Auto (RBC) [Entitic mass ]Ordered By: Fan Elliott on 01-27-2023 MCH (RBC) [Entitic mass] 31.1 pg 24.7-34.3 [facility] MCHC Auto (RBC) [Mass/Vol]Or dered By: Fan Elliott on 01-27-2023 MCHC (RBC) [Mass/Vol] 34.4 g/dL 32.0-35.0 [facility] MCV Auto (RBC) [Entitic vol] Ordered By: Fan Elliott on 01-27-2023 MCV (RBC) [Entitic vol] 90.5 fL 80-100 [facility] Monocytes Auto (Bld) [#/Vol] Ordered By: Fan Elliott on 01-27-2023 Monocytes (Bld) [#/Vol] 0.4 10*3/uL 0.0-0.8 [facility] Monocytes/100 WBC Auto (Bld) Ordered By: Fan Elliott on 01-27-2023 Monocytes/100 WBC (Bld) 7.7 % . [facility] Neutrophils Auto (Bld) [#/Vo l]Ordered By: Fan Elliott on 01-27-2023 Neutrophils (Bld) [#/Vol] 2.6 10*3/uL 1.8-7.7 [facility] Neutrophils/100 WBC Auto (Bl d)Ordered By: Fan Elliott on 01-27-2023 Neutrophils/100 WBC (Bld) 53.3 % . [facility] No Panel InformationOrdered By: Fan Elliott on 01-27-2023 Estimated GFR (CKD-EPI) 45.163 mL/Min [facility] Creatinine Clearance (Chem N/A [facility] Nucleated erythrocytes [Pres ence] in Blood by Automated countOrdered By: Fan Elliott on 01-27-2023 Nucleated RBC Auto Ql (Bld) 0.3 /100{WBC} 0-0.5 [facility] Platelet mean volume Auto (B ld) [Entitic vol]Ordered By: Fan Elliott on 01-27-2023 Platelet mean volume (Bld) [Entitic vol] 9.4 fL 6.3-10.7 [facility] Platelets Auto (Bld) [#/Vol] Ordered By: Fan Elliott on 01-27-2023 Platelets (Bld) [#/Vol] 184 10*3/uL 150-450 [facility] Potassium [Moles/volume] in Serum or PlasmaOrdered By: Fan Elliott on 01-27-2023 Potassium [Moles/Vol] 3.9 mmol/L 3.5-5.1 [facility] RBC Auto (Bld) [#/Vol]Ordere d By: Fan Elliott on 01-27-2023 RBC (Bld) [#/Vol] 3.82 10*6/uL 3.60-5.00 [facility] Serum or plasma anion gap de terminationOrdered By: Fan Elliott on 01-27-2023 Anion gap [Moles/Vol] 8.4 mmol/L 6.0-15.0 [facility] Serum or plasma high density lipoprotein (HDL) cholesterol measurementOrdered By: Fan Elliott on 01-27-2023 Cholesterol in HDL [Mass/Vol] 67 mg/dL 35-85 [facility] Comment on above: HDL CHOL ATP-III CLA SSIFICATION Cardiovascular RiskHDL > or equal to 60 mg/dL LOWHDL < 40 mg/dL HIGH Serum or plasma total choles terol/high density lipoprotein (HDL) cholesterol mass ratOrdered By: Fan Elliott on 01-27-2023 Cholesterol.total/Vilma sterol in HDL [Mass ratio] 2.7 {ratio} <5.0 [facility] Sodium [Moles/volume] in Ser um or PlasmaOrdered By: Fan Elliott on 01-27-2023 Sodium [Moles/Vol] 142 mmol/L 136-145 [facility] Thyrotropin [Units/volume] i n Serum or PlasmaOrdered By: Fan Elliott on 01-27-2023 TSH Qn 0.86 m[IU]/L 0.45-5.33 [facility] Thyroxine (T4) free [Mass/vo lume] in Serum or PlasmaOrdered By: Fan Elliott on 01-27-2023 Free T4 [Mass/Vol] 1.26 ng/dL 0.61-1.12 [facility] Triglyceride [Mass/volume] i n Serum or PlasmaOrdered By: Fan Elliott on 01-27-2023 Triglyceride [Mass/Vol] 71 mg/dL 0-149 [facility] Comment on above: TRIG ATP III CLASSIF ICATIONTRIG less than 150 mg/dL NormalTRIG 150-199 mg/dL Borderline highTRIG 200-500 mg/dL High TRIG greater than 500 mg/dL Very highStandard traceable to the Center for Disease Conrtrol and Prevention (CDC) test method. Urea nitrogen [Mass/volume] in Serum or PlasmaOrdered By: Fan Elliott on 01-27-2023 Urea nitrogen [Mass/Vol] 35 mg/dL 7-25 [facility] WBC Auto (Bld) [#/Vol]Ordere d By: Fan Elliott on 01-27-2023 WBC (Bld) [#/Vol] 4.9 10*3/uL 3.8-11.6 [facility] Potassium [Moles/volume] in Serum or PlasmaOrdered By: Fan Elliott on 12-08-2022 Potassium [Moles/Vol] 3.6 mmol/L 3.5-5.1 [facility] Activated partial thrombopla stin time (aPTT) in platelet poor plasma by coagulation aOrdered By: Ny Whitaker on 11-19-2022 aPTT Coag (PPP) [Time] 28.0 s 25.1-36.5 [facility] Basophils Auto (Bld) [#/Vol] Ordered By: Ny Whitaker on 11-19-2022 Basophils (Bld) [#/Vol] 0.0 10*3/uL 0.0-0.2 [facility] Basophils/100 WBC Auto (Bld) Ordered By: Ny Whitaker on 11-19-2022 Basophils/100 WBC (Bld) 0.4 % . [facility] Bilirubin Test strip Ql (U)O rdered By: Ny Whitaker on 11-19-2022 Bilirubin Ql (U) Negative Negative [facility] Calcium [Mass/volume] in Ser um or PlasmaOrdered By: Ny Whitaker on 11-19-2022 Calcium [Mass/Vol] 9.0 mg/dL 8.6-10.3 [facility] Carbon dioxide, total [Moles /volume] in Serum or PlasmaOrdered By: Ny Whitaker on 11-19-2022 CO2 [Moles/Vol] 31.2 mmol/L 21.0-31.0 [facility] Chloride [Moles/volume] in S elías or PlasmaOrdered By: Ny Whitaker on 11-19-2022 Chloride [Moles/Vol] 103 mmol/L 98-107 [facility] Color Auto (U)Ordered By: Ja Whitaker on 11-19-2022 Color (U) Yellow Yellow [facility] Creatinine [Mass/volume] in Serum or PlasmaOrdered By: Ny Whitaker on 11-19-2022 Creatinine [Mass/Vol] 1.21 mg/dL 0.60-1.20 [facility] Eosinophils Auto (Bld) [#/Vo l]Ordered By: Ny Whitaker on 11-19-2022 Eosinophils (Bld) [#/Vol] 0.1 10*3/uL 0.0-0.45 [facility] Eosinophils/100 WBC Auto (Bl d)Ordered By: Ny Whitaker on 11-19-2022 Eosinophils/100 WBC (Bld) 2.5 % . [facility] Erythrocyte distribution wid th Auto (RBC) [Ratio]Ordered By: Ny Whitaker on 11-19-2022 Erythrocyte distribution width (RBC) [Ratio] 13.1 % 11.9-15.3 [facility] Glucose [Mass/volume] in Ser um or PlasmaOrdered By: Ny Whitaker on 11-19-2022 Glucose [Mass/Vol] 93 mg/dL 74-109 [facility] Comment on above: ADA recommended refe rence rangeRandom Glucose Reference Range is dependent on time and content of last meal. Glucose of more than 200 mg/dL in a nonstressed, ambulatory subject supports the diagnosis of Diabetes Mellitus. Hematocrit Auto (Bld) [Volum e fraction]Ordered By: Ny Whitaker on 11-19-2022 Hematocrit (Bld) [Volume fraction] 32.9 % 34.0-46.4 [facility] Hemoglobin [Mass/volume] in BloodOrdered By: Ny Whitaker on 11-19-2022 Hemoglobin (Bld) [Mass/Vol] 11.4 g/dL 11.8-15.4 [facility] Ketones Auto test strip (U) [Mass/Vol]Ordered By: Ny Whitaker on 11-19-2022 Ketones (U) [Mass/Vol] Negative Negative [facility] Laboratory - Chemistry and C hemistry - challengeOrdered By: Ny Whitaker on 11-19-2022 GFR/1.73 sq M.predicted MDRD (S/P/Bld) [Vol rate/Area] 43.377 mL/min/{1.73_m2} [facility] - CoagulationOrde red By: Ny Whitaker on 11-19-2022 PT Coag (PPP) [Time] 11.5 s 9.0-12.9 [facility] Lactate [Moles/volume] in Se rum or PlasmaOrdered By: Ny Whitaker on 11-19-2022 Lactate [Moles/Vol] 0.8 mmol/L 0.5-2.2 [facility] Leukocytes [#/volume] correc pauline for nucleated erythrocytes in Blood by Automated counOrdered By: Ny Whitaker on 11-19-2022 WBC corrected for nucl RBC Auto (Bld) [#/Vol] 5.7 10*3/uL 3.8-11.6 [facility] Lipase [Enzymatic activity/v olume] in Serum or PlasmaOrdered By: Ny Whitaker on 11-19-2022 Lipase [Catalytic activity/Vol] 18.0 U/L 11.0-82.0 [facility] Lymphocytes Auto (Bld) [#/Vo l]Ordered By: Ny Whitaker on 11-19-2022 Lymphocytes (Bld) [#/Vol] 1.5 10*3/uL 1.00-4.8 [facility] Lymphocytes/100 WBC Auto (Bl d)Ordered By: Ny Whitaker on 11-19-2022 Lymphocytes/100 WBC (Bld) 25.8 % . [facility] MCH Auto (RBC) [Entitic mass ]Ordered By: Ny Whitaker on 11-19-2022 MCH (RBC) [Entitic mass] 31.3 pg 24.7-34.3 [facility] MCHC Auto (RBC) [Mass/Vol]Or dered By: Ny Whitaker on 11-19-2022 MCHC (RBC) [Mass/Vol] 34.5 g/dL 32.0-35.0 [facility] MCV Auto (RBC) [Entitic vol] Ordered By: Ny Whitaker on 11-19-2022 MCV (RBC) [Entitic vol] 90.8 fL 80-100 [facility] Magnesium [Mass/volume] in S elías or PlasmaOrdered By: Ny Whitaker on 11-19-2022 Magnesium [Mass/Vol] 2.0 mg/dL 1.9-2.7 [facility] Monocyte distribution width [Entitic volume] in Blood by AutomatedOrdered By: Ny Whitaker on 11-19-2022 Monocyte distribution width Auto (Bld) [Entitic vol] 17.40 % 0.00-20.00 [facility] Monocytes Auto (Bld) [#/Vol] Ordered By: Ny Whitaker on 11-19-2022 Monocytes (Bld) [#/Vol] 0.5 10*3/uL 0.0-0.8 [facility] Monocytes/100 WBC Auto (Bld) Ordered By: Ny Whitaker on 11-19-2022 Monocytes/100 WBC (Bld) 7.9 % . [facility] Neutrophils Auto (Bld) [#/Vo l]Ordered By: Ny Whitaker on 11-19-2022 Neutrophils (Bld) [#/Vol] 3.6 10*3/uL 1.8-7.7 [facility] Neutrophils/100 WBC Auto (Bl d)Ordered By: Ny Whitaker on 11-19-2022 Neutrophils/100 WBC (Bld) 63.4 % . [facility] Nitrite Test strip Ql (U)Ord ered By: Ny Whitaker on 11-19-2022 Nitrite Ql (U) Negative Negative [facility] No Panel InformationOrdered By: Ny Whitaker on 11-19-2022 Pharmacy Creatinine Clearance (Chem 28.30 [facility] Nucleated erythrocytes [Pres ence] in Blood by Automated countOrdered By: Ny Whitaker on 11-19-2022 Nucleated RBC Auto Ql (Bld) 0.2 /100{WBC} 0-0.5 [facility] Platelet mean volume Auto (B ld) [Entitic vol]Ordered By: Ny Whitaker on 11-19-2022 Platelet mean volume (Bld) [Entitic vol] 9.4 fL 6.3-10.7 [facility] Platelet poor plasma interna tional normalized ratio (INR) by coagulation assay (relatOrdered By: Ny Whitaker on 11-19-2022 INR Coag (PPP) [Relative time] 1.0 {INR} [facility] Comment on above: INR Therapeutic Rang [...] 11-19-2022 Platelets (Bld) [#/Vol] 142 10*3/uL 150-450 [facility] Potassium [Moles/volume] in Serum or PlasmaOrdered By: Ny Whitaker on 11-19-2022 Potassium [Moles/Vol] 3.2 mmol/L 3.5-5.1 [facility] Protein Auto test strip (U) [Mass/Vol]Ordered By: Ny Whitaker on 11-19-2022 Protein (U) [Mass/Vol] Negative Negative [facility] RBC Auto (Bld) [#/Vol]Ordere d By: Ny Whitaker on 11-19-2022 RBC (Bld) [#/Vol] 3.62 10*6/uL 3.60-5.00 [facility] Serum or plasma anion gap de terminationOrdered By: Ny Whitaker on 11-19-2022 Anion gap [Moles/Vol] 8.0 mmol/L 6.0-15.0 [facility] Sodium [Moles/volume] in Ser um or PlasmaOrdered By: Ny Whitaker on 11-19-2022 Sodium [Moles/Vol] 139 mmol/L 136-145 [facility] Specific gravity Auto test s trip (U) [Rel density]Ordered By: Ny Whitaker on 11-19-2022 Specific gravity (U) [Rel density] 1.014 1.001-1.03 0 [facility] Urea nitrogen [Mass/volume] in Serum or PlasmaOrdered By: Ny Whitaker on 11-19-2022 Urea nitrogen [Mass/Vol] 22 mg/dL 7-25 [facility] Urine clarity by refractomet ry automatedOrdered By: Ny Whitaker on 11-19-2022 Clarity Refractometry automated (U) Clear Clear [facility] Urine glucose measurement by automated test strip (mass/volume)Ordered By: Ny Whitaker on 11-19-2022 Glucose Auto test strip (U) [Mass/Vol] Normal mg/dL Normal [facility] Urine hemoglobin detection b y automated test stripOrdered By: Ny Whitaker on 11-19-2022 Hemoglobin Auto test strip Ql (U) Negative Negative [facility] Urine leukocyte esterase det ection by automated test stripOrdered By: Ny Whitaker on 11-19-2022 Leukocyte esterase Auto test strip Ql (U) Negative Negative [facility] Urobilinogen Auto test strip (U) [Mass/Vol]Ordered By: Ny Whitaker on 11-19-2022 Urobilinogen (U) [Mass/Vol] Normal mg/dL Normal [facility] WBC Auto (Bld) [#/Vol]Ordere d By: Ny Whitaker on 11-19-2022 WBC (Bld) [#/Vol] 5.7 10*3/uL 3.8-11.6 [facility] pH Auto test strip (U)Ordere d By: Ny Whitaker on 11-19-2022 pH (U) 6.5 [pH] 5.0-9.0 [facility] Cholesterol [Mass/volume] in Serum or PlasmaOrdered By: Fan Elliott on 07-31-2022 Cholesterol [Mass/Vol] 185 mg/dL 140-200 [facility] Comment on above: Chol less than 200 m g/dl low riskChol 201-239 mg/dl borderline riskChol 240 mg/dl and greater high risk Cholesterol in LDL Calc [Mas s/Vol]Ordered By: Fan Elliott on 07-31-2022 Cholesterol in LDL [Mass/Vol] 100 mg/dL 0-100 [facility] Comment on above: LDL ATP III CLASSIFI CATIONLDL less than 100 mg/dL OptimalLDL 100-129 mg/dL Near or above optimalLDL 130-159 mg/dL Borderline highLDL 160-189 mg/dL HighLDL greater than 189 mg/dL Very high Cholesterol in VLDL Calc [Ma ss/Vol]Ordered By: Fan Elliott on 07-31-2022 Cholesterol in VLDL [Mass/Vol] 17 mg/dL [facility] Serum or plasma high density lipoprotein (HDL) cholesterol measurementOrdered By: Fan Elliott on 07-31-2022 Cholesterol in HDL [Mass/Vol] 68 mg/dL 35-85 [facility] Comment on above: HDL CHOL ATP-III CLA SSIFICATION Cardiovascular RiskHDL > or equal to 60 mg/dL LOWHDL < 40 mg/dL HIGH Serum or plasma total choles terol/high density lipoprotein (HDL) cholesterol mass ratOrdered By: Fan Elliott on 07-31-2022 Cholesterol.total/Vilma sterol in HDL [Mass ratio] 2.7 {ratio} <5.0 [facility] Triglyceride [Mass/volume] i n Serum or PlasmaOrdered By: Fan Elliott on 07-31-2022 Triglyceride [Mass/Vol] 85 mg/dL 35-149 [facility] Comment on above: TRIG ATP III CLASSIF ICATIONTRIG less than 150 mg/dL NormalTRIG 150-199 mg/dL Borderline highTRIG 200-500 mg/dL High TRIG greater than 500 mg/dL Very highStandard traceable to the Center for Disease Conrtrol and Prevention (CDC) test method. Albumin [Mass/volume] in Ser um or PlasmaOrdered By: Celina Lee on 06-26-2022 Albumin [Mass/Vol] 3.8 g/dL 3.2-5.5 [facility] Basophils Auto (Bld) [#/Vol] Ordered By: Sam Machado on 06-26-2022 Basophils (Bld) [#/Vol] 0.0 10*3/uL 0.0-0.2 [facility] Basophils/100 WBC Auto (Bld) Ordered By: Sam Machado on 06-26-2022 Basophils/100 WBC (Bld) 0.7 % . [facility] Creatinine and Glomerular fi ltration rate.predicted panel (S/P/Bld)Ordered By: Celina Lee on 06-26-2022 Creatinine [Mass/Vol] 1.27 mg/dL 0.44-1.03 [facility] Eosinophils Auto (Bld) [#/Vo l]Ordered By: Sam Machado on 06-26-2022 Eosinophils (Bld) [#/Vol] 0.2 10*3/uL 0.0-0.45 [facility] Eosinophils/100 WBC Auto (Bl d)Ordered By: Sam Machado on 06-26-2022 Eosinophils/100 WBC (Bld) 3.9 % . [facility] Erythrocyte distribution wid th Auto (RBC) [Ratio]Ordered By: Sam Mahcado on 06-26-2022 Erythrocyte distribution width (RBC) [Ratio] 12.5 % 11.9-15.3 [facility] Estimated glomerular filtrat ion rate (GFR) non- AmericanOrdered By: Celina Lee on 06-26-2022 GFR/1.73 sq M.predicted among non-blacks MDRD (S/P/Bld) [Vol rate/Area] 40 mL/Min [facility] Globulin Calc (S) [Mass/Vol] Ordered By: Celina Lee on 06-26-2022 Globulin (S) [Mass/Vol] 1.9 g/dL [facility] Hematocrit Auto (Bld) [Volum e fraction]Ordered By: Sam Machado on 06-26-2022 Hematocrit (Bld) [Volume fraction] 35.6 % 34.0-46.4 [facility] Hemoglobin [Mass/volume] in BloodOrdered By: Sam Machado on 06-26-2022 Hemoglobin (Bld) [Mass/Vol] 11.8 g/dL 11.8-15.4 [facility] - Hematology and Cell countsOrdered By: Sam Machado on 06-26-2022 Nucleated RBC/100 WBC (Bld) [Ratio] 0.2 % 0-0.5 [facility] Leukocytes [#/volume] in Blo od by Automated countOrdered By: Sam Machado on 06-26-2022 WBC (Bld) [#/Vol] 5.3 10*3/uL 4.5-11.0 [facility] Lymphocytes Auto (Bld) [#/Vo l]Ordered By: Sam Machado on 06-26-2022 Lymphocytes (Bld) [#/Vol] 1.4 10*3/uL 1.00-4.8 [facility] Lymphocytes/100 WBC Auto (Bl d)Ordered By: Sam Machado on 06-26-2022 Lymphocytes/100 WBC (Bld) 25.9 % . [facility] MCH Auto (RBC) [Entitic mass ]Ordered By: Sam Machado on 06-26-2022 MCH (RBC) [Entitic mass] 30.3 pg 24.7-34.3 [facility] MCHC Auto (RBC) [Mass/Vol]Or dered By: Sam Jiangahim on 06-26-2022 MCHC (RBC) [Mass/Vol] 33.3 g/dL 32.0-35.0 [facility] MCV Auto (RBC) [Entitic vol] Ordered By: Sam Machado on 06-26-2022 MCV (RBC) [Entitic vol] 91.1 fL 80-100 [facility] Monocytes Auto (Bld) [#/Vol] Ordered By: Sam Machado on 06-26-2022 Monocytes (Bld) [#/Vol] 0.4 10*3/uL 0.0-0.8 [facility] Monocytes/100 WBC Auto (Bld) Ordered By: Sam Hummelim on 06-26-2022 Monocytes/100 WBC (Bld) 8.4 % . [facility] Neutrophils Auto (Bld) [#/Vo l]Ordered By: Sam Machado on 06-26-2022 Neutrophils (Bld) [#/Vol] 3.2 10*3/uL 1.8-7.7 [facility] Neutrophils/100 WBC Auto (Bl d)Ordered By: Sam Hummelim on 06-26-2022 Neutrophils/100 WBC (Bld) 61.1 % . [facility] No Panel InformationOrdered By: Celina Lee on 06-26-2022 Estimated GFR () 48 mL/Min [facility] Comment on above: GFR estimated refere nce range: According to KDOQI guidelines, <60 ml/min/1.73m2 is sufficient to diagnose a patient with chronic kidney disease. Pharmacy Creatinine Clearance (Chem N/A [facility] No Panel Informationon 06-26 1.13\S\1.13 Normal 0.45-5.33 -[facility] [address] DO Work Phone: [phone] Comment on above: PERFORMED BY:[facility] [place], [place] [id number] MEDICAL DIRECTORSAN [facility].Vane 0.0\S\0.0 Normal 0.0-0.2 -[facility] [address] DO Work Phone: [phone] Comment on above: PERFORMED BY:[facility] [place], [place] [id number] MEDICAL DIRECTORSAN [facility].Vane 0.2\S\0.2 Normal 0-0.5 -[facility] [address] DO Work Phone: [phone] 0.4\S\0.4 Normal 0.0-0.8 -[facility] [address] DO Work Phone: [phone] 1.4\S\1.4 Normal 1.00-4.8 -[facility] [address] DO Work Phone: [phone] 3.2\S\3.2 Normal 1.8-7.7 -[facility] [address] DO Work Phone: [phone] 0.7\S\0.7 Normal . [facility] [address] DO Work Phone: [phone] 3.9\S\3.9 Normal . [facility] [address] DO Work Phone: [phone] 8.4\S\8.4 Normal . [facility] [address] DO Work Phone: [phone] 25.9\S\25.9 Normal . [facility] [address] DO Work Phone: [phone] 61.1\S\61.1 Normal . [facility] [address] DO Work Phone: 9.2\S\9.2 Normal 6.3-10.7 [facility] Jonathan lyle 250 DO Work Phone: [phone] Normal 150-450 [facility] Jonathan lyle 250 DO Work Phone: [phone] 12.5\S\12.5 Normal 11.9-15.3 [facility] Jonathan lyle 250 DO Work Phone: 33.3\S\33.3 Normal 32.0-35.0 [facility] Jonathan lyle 250 DO Work Phone: [phone] 30.3\S\30.3 Normal 24.7-34.3 [facility] Jonathan lyle 250 DO Work Phone: [phone] 91.1\S\91.1 Normal 80-100 [facility] Jonathan lyle 250 DO Work Phone: [phone] 35.6\S\35.6 Normal 34.0-46.4 [facility] Jonathan lyle 250 DO Work Phone: [phone] 11.8\S\11.8 Normal 11.8-15.4 [facility] Jonathan lyle 250 DO Work Phone: [phone] 3.90\S\3.90 Normal 3.60-5.00 [facility] Work Phone: [phone] 5.3\S\5.3 Normal 3.8-11.6 [facility] Work Phone: [phone] Office Visit (Cardiology)on 06-26-2022 Follow-up visit Diagnoses/Problems [...] Blood Count; Status:Active - Retrospective Authorization; Requested for:[id number]; Essential hypertension, benign, Paroxysmal SVT (supraventricular tachycardia) Renew: Carvedilol 6.25 MG Oral Tablet; Take one tablet in the morning and 2 tablets in the evening Hypothyroidism TSH - Thyroid Stimulating Hormone, Serum; Status:Active - Retrospective Authorization; Requested for:[id number]; Overweight with body mass index (BMI) of 26 to 26.9 in adult Healthy Weight Tips; Status:Complete - Retrospective Authorization; Done: 26Jun2022 Some eating tips that can help you lose weight.; Status:Complete - Retrospective Authorization; Done: [id number] SocHx: Former smoker Tobacco Use Screening; Status:Complete; Done: [id number] Patient Instructions Please bring all medicines, vitamins, [...] under control on beta cheryl, hydrochlorothiazide. 4. Slight overweight. The patient lost [...] scheduled in 1 year Sam Machado MD, [facility] Past Medical History Problems History of [...] Tablet1 daily Probiotic CAPSUSE DIRECTED. Vitamin D3 [id number] mg daily Allergies Medication Penicillins Hives;; Recorded [...] Recorded: 26Jun2022 09:23AM Heart Rate72, L Radial [id number], LUE, Sitting Exsiicfay39, LUE, Sitting Height5 ft 1 in [id number] lb BMI Ca (more content not included)... Normal [facility] Platelet mean volume Auto (B ld) [Entitic vol]Ordered By: Sam Machado on 06-26-2022 Platelet mean volume (Bld) [Entitic vol] 9.2 fL 6.3-10.7 [facility] Platelets Auto (Bld) [#/Vol] Ordered By: Sam Machado on 06-26-2022 Platelets (Bld) [#/Vol] 224 10*3/uL 150-450 [facility] Protein [Mass/volume] in Ser um or PlasmaOrdered By: Celina Lee on 06-26-2022 Protein [Mass/Vol] 5.7 g/dL 6.1-7.9 [facility] RBC Auto (Bld) [#/Vol]Ordere d By: Sam Machado on 06-26-2022 RBC (Bld) [#/Vol] 3.90 10*6/uL 3.60-5.00 [facility] Serum or plasma alanine vazquez otransferase measurement without P-5'-P (enzymatic activiOrdered By: Celina Lee on 06-26-2022 ALT No additional P-5'-P [Catalytic activity/Vol] 17 U/L 10-60 [facility] Serum or plasma albumin/glob ulin mass ratioOrdered By: Celina Lee on 06-26-2022 Albumin/Globulin [Mass ratio] 2.0 {ratio} [facility] Serum or plasma alkaline shira sphatase measurement (enzymatic activity/volume)Ordered By: Celina Lee on 06-26-2022 ALP [Catalytic activity/Vol] 45 U/L 32-92 [facility] Serum or plasma anion gap de terminationOrdered By: Celina Lee on 06-26-2022 Anion gap [Moles/Vol] 16.0 mmol/L 6.0-15.0 [facility] Serum or plasma aspartate am inotransferase measurement (enzymatic activity/volume)Ordered By: Celina Lee on 06-26-2022 AST [Catalytic activity/Vol] 24 U/L 10- [facility] Serum or plasma calcium clif urement (mass/volume)Ordered By: Celina Lee on 06-26-2022 Calcium [Mass/Vol] 9.7 mg/dL 8.2-10.2 [facility] Serum or plasma chloride víctor surement (moles/volume)Ordered By: Celina Lee on 06-26-2022 Chloride [Moles/Vol] 97 mmol/L 95-114 [facility] Serum or plasma glucose clif urement (mass/volume)Ordered By: Celina Lee on 06-26-2022 Glucose [Mass/Vol] 93 mg/dL 70-100 [facility] Comment on above: ADA recommended refe rence rangeRandom Glucose Reference Range is dependent on time and content of last meal. Glucose of more than 200 mg/dL in a nonstressed, ambulatory subject supports the diagnosis of Diabetes Mellitus. Serum or plasma potassium me asurement (moles/volume)Ordered By: Celina Lee on 06-26-2022 Potassium [Moles/Vol] 3.5 mmol/L 3.5-5.1 [facility] Serum or plasma sodium measu rement (moles/volume)Ordered By: Celina Lee on 06-26-2022 Sodium [Moles/Vol] 138 mmol/L 136-146 [facility] Serum or plasma total biliru bin measurement (mass/volume)Ordered By: Celina Lee on 06-26-2022 Bilirubin [Mass/Vol] 0.7 mg/dL 0.3-1.2 [facility] Serum or plasma total carbon dioxide measurement (moles/volume)Ordered By: Celina Lee on 06-26-2022 CO2 [Moles/Vol] 28.5 mmol/L 22.0-30.0 [facility] Serum or plasma urea nitroge n measurement (mass/volume)Ordered By: Celina Lee on 06-26-2022 Urea nitrogen [Mass/Vol] 23 mg/dL 05-23 [facility] TSH DL <= 0.005 mIU/L QnOrde red By: Sam Machado on 06-26-2022 TSH Qn 1.13 m[IU]/L 0.45-5.33 [facility] Tobacco Screening.on 022 Adult depression screening assessment No [facility] [address] DO Work Phone: Fall risk assessment a) No falls within the last year [facility] [address] DO Work Phone: Tobacco use status [facility] b) No M [facility] [address] DO Work Phone: Basophils Auto (Bld) [#/Vol] Ordered By: Cece Anguiano on 04-10-2022 Basophils (Bld) [#/Vol] 0.0 10*3/uL 0.0-0.2 [facility] Basophils/100 WBC Auto (Bld) Ordered By: Cece Anguiano on 04-10-2022 Basophils/100 WBC (Bld) 0.5 % . [facility] Blood hemoglobin measurement (mass/volume)Ordered By: Cece Anguiano on 04-10-2022 Hemoglobin (Bld) [Mass/Vol] 11.0 g/dL 11.8-15.4 [facility] Blood leukocytes automated c ount (number/volume)Ordered By: Cece Anguiano on 04-10-2022 WBC (Bld) [#/Vol] 4.7 10*3/uL 4.5-11.0 [facility] C reactive protein [Mass/vol ume] in Serum or PlasmaOrdered By: Cece Anguiano on 04-10-2022 CRP [Mass/Vol] 0.5 mg/dL 0.0-1.0 [facility] Eosinophils Auto (Bld) [#/Vo l]Ordered By: Cece Anguiano on 04-10-2022 Eosinophils (Bld) [#/Vol] 0.2 10*3/uL 0.0-0.45 [facility] Eosinophils/100 WBC Auto (Bl d)Ordered By: Cece Anguiano on 04-10-2022 Eosinophils/100 WBC (Bld) 4.3 % . [facility] Erythrocyte distribution wid th Auto (RBC) [Ratio]Ordered By: Cece Anguiano on 04-10-2022 Erythrocyte distribution width (RBC) [Ratio] 12.7 % 11.9-15.3 [facility] Erythrocyte sedimentation ra te by Photometric methodOrdered By: Cece Anguiano on 04-10-2022 ESR Photometric method (Bld) [Velocity] 7 mm/hr 0-29 [facility] Hematocrit Auto (Bld) [Volum e fraction]Ordered By: Cece Anguiano on 04-10-2022 Hematocrit (Bld) [Volume fraction] 32.4 % 34.0-46.4 [facility] Laboratory - Hematology and Cell countsOrdered By: Cece Anguiano on 04-10-2022 Nucleated RBC/100 WBC (Bld) [Ratio] 0.1 % 0-0.5 [facility] Lymphocytes Auto (Bld) [#/Vo l]Ordered By: Cece Anguiano on 04-10-2022 Lymphocytes (Bld) [#/Vol] 1.5 10*3/uL 1.00-4.8 [facility] Lymphocytes/100 WBC Auto (Bl d)Ordered By: Cece Anguiano on 04-10-2022 Lymphocytes/100 WBC (Bld) 31.7 % . [facility] MCH Auto (RBC) [Entitic mass ]Ordered By: Cece Anguiano on 04-10-2022 MCH (RBC) [Entitic mass] 31.5 pg 24.7-34.3 [facility] MCHC Auto (RBC) [Mass/Vol]Or dered By: Cece Anguiano on 04-10-2022 MCHC (RBC) [Mass/Vol] 34.1 g/dL 32.0-35.0 [facility] MCV Auto (RBC) [Entitic vol] Ordered By: Cece Anguiano on 04-10-2022 MCV (RBC) [Entitic vol] 92.5 fL 80-100 [facility] Monocytes Auto (Bld) [#/Vol] Ordered By: Cece Anguiano on 04-10-2022 Monocytes (Bld) [#/Vol] 0.4 10*3/uL 0.0-0.8 [facility] Monocytes/100 WBC Auto (Bld) Ordered By: Cece Anguiano on 04-10-2022 Monocytes/100 WBC (Bld) 8.5 % . [facility] Neutrophils Auto (Bld) [#/Vo l]Ordered By: Cece Anguiano on 04-10-2022 Neutrophils (Bld) [#/Vol] 2.6 10*3/uL 1.8-7.7 [facility] Neutrophils/100 WBC Auto (Bl d)Ordered By: Cece Anguiano on 04-10-2022 Neutrophils/100 WBC (Bld) 55.0 % . [facility] No Panel InformationOrdered By: Cece Anguiano on 04-10-2022 D-Dimer Quantitative (PE/DVT) 372 ng/mL 0-243 [facility] Comment on above: The reference range [...] volume (Bld) [Entitic vol] 9.7 fL 6.3-10.7 [facility] Platelets Auto (Bld) [#/Vol] Ordered By: Cece Anguiano on 04-10-2022 Platelets (Bld) [#/Vol] 206 10*3/uL 150-450 [facility] RBC Auto (Bld) [#/Vol]Ordere d By: Cece Anguiano on 04-10-2022 RBC (Bld) [#/Vol] 3.50 10*6/uL 3.60-5.00 [facility] XR knee RT 3Von 04-09-2022 XR knee RT 3V XR/XR knee RT 3V - NOT FOR ER USE: History of total right knee [employer] Other XR knee RT 3V replacement [employer] Other XR knee RT 3V XR knee RT 3V - NOT FOR ER USE 04/09/2022 2:40 PM [employer] Other XR knee RT 3V SIGNS AND SYMPTOMS: Right knee arthroplasty, right knee pain [employer] Other XR knee RT 3V PROTOCOL: Frontal, lateral, and oblique radiographs of the right knee [employer] Other XR knee RT 3V COMPARISON: None [employer] Other XR knee RT 3V There is total right knee arthroplasty hardware. There is no hardware complication. No evidence of [employer] Other XR knee RT 3V malalignment. There is no evidence of fracture or dislocation. There is fragmentation of the [employer] Other XR knee RT 3V inferior pole of the patella which may be a product of avascular necrosis. No joint effusion or soft [employer] Other XR knee RT 3V tissue swelling. [employer] Other XR knee RT 3V X R/XR knee RT 3V - NOT FOR ER USE [employer] Other XR knee RT 3V Total right knee arthroplasty hardware is noted without hardware complication or fracture. [employer] Other XR knee RT 3V There is fragmentati on of the inferior pole of the patella which may be a product of avascular [employer] Other XR knee RT 3V necrosis. [employer] Other XR knee RT 3V Impression dictated by: John Chadwick M.D.04/09/2022 4:19 PM [employer] Other XR knee RT 3V Transcribed By: PWS 04/09/22 Pending sale to [facility] [employer] Other XR knee RT 3V Dictated By: John Chadwick II, MD 04/09/22 [facility] [employer] Other XR knee RT 3V 04/09/22 Pending sale to [facility] W4 [facility] [employer] Other XR pelvis 1-2Von 04-09-2022 XR pelvis 1-2V [facility] [employer] Other XR pelvis 1-2V [facility] [employer] Other XR pelvis 1-2V [address] [place] [address] [employer] Other XR pelvis 1-2[place] [address] No rt [employer] Other XR pelvis 1-2V XRay Report [employer] Other XR pelvis 1-2V Signed [employer] Other XR pelvis 1-2V Patient: Ana Edwards MR#: [id number] [employer] Other XR pelvis 1-2V : 1935 Acct:[id number] [employer] Other XR pelvis 1-2V Age/Sex: 87 / F ADM Date: 04/09/22 [employer] Other XR pelvis 1-2V Loc: [facility]: [facility] [employer] Other XR pelvis 1-2V Attending Dr: Cece Anguiano II, MD [employer] Other XR pelvis 1-2V Copies to: Cece Anguiano MD [employer] Other XR pelvis 1-2V Ordering Provider: Cece Anguiano MD [employer] Other XR pelvis 1-2V Date of Service: 04/09/22 [employer] Other XR pelvis 1-2V XR/XR pelvis 1-2V: History of total right knee replacement [employer] Other XR pelvis 1-2V XR pelvis 1-2V 2021 2:40 PM [employer] Other XR pelvis 1-2V SIGNS AND SYMPTOMS: N Gen[employer] Other XR pelvis 1-2V History of total rig ht knee replacement [employer] Other XR pelvis 1-2V PROTOCOL: Frontal radiograph of the pelvis [employer] Other XR pelvis 1-2V COMPARISON: 11/02/2014 [employer] Other XR pelvis 1-2V FINDINGS: [employer] Other XR pelvis 1-2V There is posterior fusion hardware in the lumbosacral junction. Degenerative changes are noted in [employer] Other XR pelvis 1-2V the sacral iliac asad nts and hips. There is no fracture or dislocation. [employer] Other XR pelvis 1-2V X R/XR pelvis 1-2V [employer] Other XR pelvis 1-2V IMPRESSION: [employer] Other XR pelvis 1-2V No acute bony injury. 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 [employer] Other XR pelvis 1-2V Impression dictated by: John Chadwick M.D.04/09/2022 3:06 PM [employer] Other XR pelvis 1-2V Dictation Location: RADIO-PC-11 [employer] Other XR pelvis 1-2V Transcribed By: PWS 04/09/22 1504 [employer] Other XR pelvis 1-2V Dictated By: John Chadwick II, MD 04/09/22 [facility] [employer] Other XR pelvis 1-2V Signed By: [employer] Other XR pelvis 1-2V 04/09/22 1502 [employer] Other Albumin [Mass/volume] in Ser um or PlasmaOrdered By: Celina Lee on 03-07-2022 Albumin [Mass/Vol] 3.5 g/dL 3.2-5.5 [facility] Albumin [Mass/Vol] 3.7 g/dL 2.9-4.4 [facility] Albumin/Protein.total in 24 hour Urine by ElectrophoresisOrdered By: Celina Lee on 03-07-2022 Albumin Elph (24H U) [Mass fraction] 28.2 % . [facility] Basophils Auto (Bld) [#/Vol] Ordered By: Celina Lee on 03-07-2022 Basophils (Bld) [#/Vol] 0.0 10*3/uL 0.0-0.2 [facility] Basophils/100 WBC Auto (Bld) Ordered By: Celina Lee on 03-07-2022 Basophils/100 WBC (Bld) 0.8 % . [facility] Blood hemoglobin measurement (mass/volume)Ordered By: Celina Lee on 03-07-2022 Hemoglobin (Bld) [Mass/Vol] 10.2 g/dL 11.8-15.4 [facility] Blood leukocytes automated c ount (number/volume)Ordered By: Celina Lee on 03-07-2022 WBC (Bld) [#/Vol] 5.1 10*3/uL 4.5-11.0 [facility] CT biopsyOrdered By: Celina Lee on 03-07-2022 Transferrin [Mass/Vol] 184 mg/dL 180-380 [facility] Creatinine and Glomerular fi ltration rate.predicted panel (S/P/Bld)Ordered By: Celina Lee on 03-07-2022 Creatinine [Mass/Vol] 1.27 mg/dL 0.44-1.03 [facility] Eosinophils Auto (Bld) [#/Vo l]Ordered By: Celina Lee on 03-07-2022 Eosinophils (Bld) [#/Vol] 0.3 10*3/uL 0.0-0.45 [facility] Eosinophils/100 WBC Auto (Bl d)Ordered By: Celina Lee on 03-07-2022 Eosinophils/100 WBC (Bld) 5.0 % . [facility] Erythrocyte distribution wid th Auto (RBC) [Ratio]Ordered By: Celina Lee on 03-07-2022 Erythrocyte distribution width (RBC) [Ratio] 13.0 % 11.9-15.3 [facility] Estimated glomerular filtrat ion rate (GFR) non- AmericanOrdered By: Celina Lee on 03-07-2022 GFR/1.73 sq M.predicted among non-blacks MDRD (S/P/Bld) [Vol rate/Area] 40 mL/Min [facility] Ferritin [Mass/volume] in Se rum or PlasmaOrdered By: Celina Lee on 03-07-2022 Ferritin [Mass/Vol] 170.6 ng/mL 11-306.8 [facility] Folate [Mass/volume] in Seru m or PlasmaOrdered By: Celina Lee on 03-07-2022 Folate [Mass/Vol] 21.2 ng/mL >5.9 [facility] Comment on above: Folate reference ran ge: >5.9 ng/ml The WHO technical consultation on folate and vitamin b12 deficiencies has determined that folate concentrations less than 4 ng/ml are considered deficient. Folate reference ran ge: >5.9 ng/mlThe WHO technical consultation on folate and vitamin [id number] has determined that folate concentrations lessthan 4 ng/ml are considered deficient. Gamma globulin/Protein.total in 24 hour Urine by ElectrophoresisOrdered By: Celina Lee on 03-07-2022 Gamma globulin Elph (24H U) [Mass fraction] 22.3 % . [facility] Globulin Calc (S) [Mass/Vol] Ordered By: Celina Lee on 03-07-2022 Globulin (S) [Mass/Vol] 2.2 g/dL [facility] Haptoglobin [Mass/volume] in Serum or PlasmaOrdered By: Celina Lee on 03-07-2022 Haptoglobin [Mass/Vol] 87 mg/dL 37-246 [facility] Hematocrit Auto (Bld) [Volum e fraction]Ordered By: Celina Lee on 03-07-2022 Hematocrit (Bld) [Volume fraction] 29.7 % 34.0-46.4 [facility] IgA [Mass/volume] in Serum o r PlasmaOrdered By: Celina Lee on 03-07-2022 IgA [Mass/Vol] 112 mg/dL 64-422 [facility] IgG [Mass/volume] in Serum o r PlasmaOrdered By: Celina Lee on 03-07-2022 IgG [Mass/Vol] 575 mg/dL 586-1602 [facility] IgM [Mass/volume] in Serum o r PlasmaOrdered By: Celina Lee on 03-07-2022 IgM [Mass/Vol] 99 mg/dL 26-217 [facility] Comment on above: Performed at: [address] [id number] Computing Machine Operator: Jose C Vivas PhD, Phone: [phone] Performed at: [facility] [id number] [place] [id number] Director: Jose C Vivas PhD, Phone: [phone] Immunoglobulin light chains. kappa.free [Mass/volume] in SerumOrdered By: Celina Lee on 03-07-2022 Immunoglobulin light chains.kappa.free (S) [Mass/Vol] 24.2 mg/L 3.3-19.4 [facility] Immunoglobulin light chains. kappa.free/Immunoglobulin light chains.lambda.free [MassOrdered By: Celina Lee on 03-07-2022 Immunoglobulin light chains.kappa.free/Immun oglobulin light chains.lambda.free (S) [Mass ratio] 1.49 0.26-1.65 [facility] Comment on above: Performed at: [facility] [address] [id number] Computing Machine Operator: Jose C Vivas PhD, Phone: [phone] Performed at: [facility] [place] [id number] Director: Jose C Vivas PhD, Phone: [phone] Immunoglobulin light chains. lambda.free [Mass/volume] in Serum or PlasmaOrdered By: Celina Lee on 03-07-2022 Immunoglobulin light chains.lambda.free [Mass/Vol] 16.2 mg/L 5.7-26.3 [facility] Iron [Mass/volume] in Serum or PlasmaOrdered By: Celina Lee on 03-07-2022 Iron [Mass/Vol] 66 ug/dL 40-150 [facility] Iron binding capacity [Mass/ volume] in Serum or PlasmaOrdered By: Celina Lee on 03-07-2022 Iron binding capacity [Mass/Vol] 258 ug/dL 255-450 [facility] Iron saturation [Mass Fracti on] in Serum or PlasmaOrdered By: Celina Lee on 03-07-2022 Iron saturation [Mass fraction] 25.0 % 20-50 [facility] - Chemistry and C hemistry - challengeOrdered By: Celina Lee on 03-07-2022 Cobalamin (Vitamin B12) [Mass/Vol] 479 pg/mL 180-914 [facility] - Hematology and Cell countsOrdered By: Celina Lee on 03-07-2022 Nucleated RBC/100 WBC (Bld) [Ratio] 0.1 % 0-0.5 [facility] Lactate dehydrogenase measur ement (enzymatic activity/volume)Ordered By: Celina Lee on 03-07-2022 LDH (Unsp spec) [Catalytic activity/Vol] 162 U/L 45-190 [facility] Lymphocytes Auto (Bld) [#/Vo l]Ordered By: Celina Lee on 03-07-2022 Lymphocytes (Bld) [#/Vol] 1.4 10*3/uL 1.00-4.8 [facility] Lymphocytes/100 WBC Auto (Bl d)Ordered By: Celina Lee on 03-07-2022 Lymphocytes/100 WBC (Bld) 28.2 % . [facility] MCH Auto (RBC) [Entitic mass ]Ordered By: Celina Lee on 03-07-2022 MCH (RBC) [Entitic mass] 31.6 pg 24.7-34.3 [facility] MCHC Auto (RBC) [Mass/Vol]Or dered By: Celina Lee on 03-07-2022 MCHC (RBC) [Mass/Vol] 34.5 g/dL 32.0-35.0 [facility] MCV Auto (RBC) [Entitic vol] Ordered By: Celina Lee on 03-07-2022 MCV (RBC) [Entitic vol] 91.7 fL 80-100 [facility] Monocytes Auto (Bld) [#/Vol] Ordered By: Celina Lee on 03-07-2022 Monocytes (Bld) [#/Vol] 0.4 10*3/uL 0.0-0.8 [facility] Monocytes/100 WBC Auto (Bld) Ordered By: Celina Lee on 03-07-2022 Monocytes/100 WBC (Bld) 8.0 % . [facility] Neutrophils Auto (Bld) [#/Vo l]Ordered By: Celina Lee on 03-07-2022 Neutrophils (Bld) [#/Vol] 2.9 10*3/uL 1.8-7.7 [facility] Neutrophils/100 WBC Auto (Bl d)Ordered By: Celina Lee on 03-07-2022 Neutrophils/100 WBC (Bld) 58.0 % . [facility] No Panel InformationOrdered By: Celina Lee on 03-07-2022 Urine Random Prot Electrophor Note See comment . [facility] Comment on above: Protein electrophore sis scan will follow via computer, mail, or family support worker delivery. Performed at: [facility] [id number] Computing Machine Operator: Jose C Vivas PhD, Phone: [phone] Protein electrophore sis scan will follow via computer,mail, or family support worker delivery.Performed at: [facility] [id number] Director: Jose C Vivas PhD, Phone: [phone] Absolute Reticulocyte Count 0.047 10*6/uL 0.024-0.08 4 [facility] Estimated GFR () 48 mL/Min [facility] Comment on above: GFR estimated refere nce range: According to KDOQI guidelines, <60 ml/min/1.73m2 is sufficient to diagnose a patient with chronic kidney disease. Percent Reticulocyte Count 1.5 % 0.5-1.5 [facility] Creatinine Clearance (Chem 28.33 [facility] Protein Electrophoresis M-Nithin Not observed g/dL Not Observed [facility] Protein Electrophoresis Note See comment . [facility] Comment on above: Protein electrophore sis scan will follow via computer, mail, or family support worker delivery. Performed at: [facility] [id number] Computing Machine Operator: Jose C Vivas PhD, Phone: [phone] Protein electrophore sis scan will follow via computer,mail, or family support worker delivery.Performed at: [facility] [id number] Director: Jose C Vivas PhD, Phone: [phone] Serum Immunofixation See comment . [facility] Comment on above: No monoclonality det ected. Platelet mean volume Auto (B ld) [Entitic vol]Ordered By: Celina Lee on 03-07-2022 Platelet mean volume (Bld) [Entitic vol] 9.9 fL 6.3-10.7 [facility] Platelets Auto (Bld) [#/Vol] Ordered By: Celina Lee on 03-07-2022 Platelets (Bld) [#/Vol] 197 10*3/uL 150-450 [facility] Protein [Mass/volume] in Ser um or PlasmaOrdered By: Celina Lee on 03-07-2022 Protein [Mass/Vol] 5.7 g/dL 6.1-7.9 [facility] Protein [Mass/Vol] 5.8 g/dL 6.0-8.5 [facility] Protein [Mass/volume] in Uri neOrdered By: Celina Lee on 03-07-2022 Protein (U) [Mass/Vol] 8.6 mg/dL Not Estab. Fi [facility] Protein.monoclonal/Protein.t otal in 24 hour Urine by ElectrophoresisOrdered By: Celina Lee on 03-07-2022 Protein.monoclonal Elph (24H U) [Mass fraction] Not observed % Not Observed [facility] RBC Auto (Bld) [#/Vol]Ordere d By: Celina Lee on 03-07-2022 RBC (Bld) [#/Vol] 3.24 10*6/uL 3.60-5.00 [facility] Serum globulin measurement ( mass/volume)Ordered By: Celina Lee on 03-07-2022 Globulin (S) [Mass/Vol] 2.1 g/dL 2.2-3.9 [facility] Serum or plasma alanine vazquez otransferase measurement without P-5'-P (enzymatic activiOrdered By: Celina Lee on 03-07-2022 ALT No additional P-5'-P [Catalytic activity/Vol] 17 U/L 10-60 [facility] Serum or plasma albumin/glob ulin mass ratioOrdered By: Celina Lee on 03-07-2022 Albumin/Globulin [Mass ratio] 1.6 {ratio} [facility] Albumin/Globulin [Mass ratio] 1.8 {ratio} 0.7-1.7 [facility] Serum or plasma alkaline shira sphatase measurement (enzymatic activity/volume)Ordered By: Celina Lee on 03-07-2022 ALP [Catalytic activity/Vol] 43 U/L 32-92 [facility] Serum or plasma alpha 1 glob ulin measurement by electrophoresis (mass/volume)Ordered By: Celina Lee on 03-07-2022 Alpha 1 globulin Elph [Mass/Vol] 0.2 g/dL 0.0-0.4 [facility] Serum or plasma alpha 2 glob ulin measurement by electrophoresis (mass/volume)Ordered By: Celina Lee on 03-07-2022 Alpha 2 globulin Elph [Mass/Vol] 0.6 g/dL 0.4-1.0 [facility] Serum or plasma aspartate am inotransferase measurement (enzymatic activity/volume)Ordered By: Celina Lee on 03-07-2022 AST [Catalytic activity/Vol] 22 U/L 10-42 [facility] Serum or plasma beta globuli n measurement by electrophoresis (mass/volume)Ordered By: Celina Lee on 03-07-2022 Beta globulin Elph [Mass/Vol] 0.7 g/dL 0.7-1.3 [facility] Serum or plasma calcium clif urement (mass/volume)Ordered By: Celina Lee on 03-07-2022 Calcium [Mass/Vol] 9.9 mg/dL 8.2-10.2 [facility] Serum or plasma chloride víctor surement (moles/volume)Ordered By: Celina Lee on 03-07-2022 Chloride [Moles/Vol] 102 mmol/L 95-114 [facility] Serum or plasma erythropoiet in (EPO) measurement (units/volume)Ordered By: Celina Lee on 03-07-2022 Erythropoietin (EPO) Qn 13.4 mIU/mL 2.6-18.5 [facility] Comment on above: [employer] DxI 800 Immunoassay System Values obtained with different assay methods or kits cannot be used interchangeably. Results cannot be interpreted as absolute evidence of the presence or absence of malignant disease. Performed at: [facility] [id number] Computing Machine Operator: Jose C Vivas PhD, Phone: [phone] [employer] 800 Immunoassay SystemValues obtained with different assay methods or kits cannotbe used interchangeably. Results cannot be interpreted asabsolute evidence of the presence or absence of malignantdisease.Performed at: [facility] [address] [id number] Director: Jose C Vivas PhD, Phone: [phone] Serum or plasma gamma globul in measurement by electrophoresis (mass/volume)Ordered By: Celina Lee on 03-07-2022 Gamma globulin Elph [Mass/Vol] 0.4 g/dL 0.4-1.8 [facility] Serum or plasma glucose clif urement (mass/volume)Ordered By: Celina Lee on 03-07-2022 Glucose [Mass/Vol] 99 mg/dL 70-100 [facility] Comment on above: ADA recommended refe rence [...] on 03-07-2022 Homocysteine [Moles/Vol] 20.6 umol/L 0.0-21.3 [facility] Comment on above: Performed at: [facility] [address] [id number] Computing Machine Operator: Jose C Vivas PhD, Phone: [phone] Performed at: [facility] [id number] [place], [place] [id number] Director: Jose C Vivas PhD, Phone: [phone] Serum or plasma methylmalona te measurement (moles/volume)Ordered By: Celina Lee on 03-07-2022 Methylmalonate [Moles/Vol] 205 nmol/L 0-378 [facility] Comment on above: This test was develo ped and its performance characteristics determined by [employer]. It has not been cleared or approved by the Food and Drug Administration. Performed at: [address] [id number] Computing Machine Operator: Jeanette Pittman MD, Phone: [phone] This test was develo ped and its performance characteristicsdetermined by [employer]. It has not been cleared orapproved by the Food and Drug Administration.Performed at: [address] [id number] Director: Jeanette Pittman MD, Phone: [phone] Serum or plasma potassium me asurement (moles/volume)Ordered By: Celina Lee on 03-07-2022 Potassium [Moles/Vol] 3.7 mmol/L 3.5-5.1 [facility] Serum or plasma sodium measu rement (moles/volume)Ordered By: Celina Lee on 03-07-2022 Sodium [Moles/Vol] 140 mmol/L 136-146 [facility] Serum or plasma total biliru bin measurement (mass/volume)Ordered By: Celina Lee on 03-07-2022 Bilirubin [Mass/Vol] 0.8 mg/dL 0.3-1.2 [facility] Serum or plasma total carbon dioxide measurement (moles/volume)Ordered By: Celina Lee on 03-07-2022 CO2 [Moles/Vol] 29.7 mmol/L 22.0-30.0 [facility] Serum or plasma urea nitroge n measurement (mass/volume)Ordered By: Celina Lee on 03-07-2022 Urea nitrogen [Mass/Vol] 17 mg/dL 9-23 [facility] Urine alpha 1 globulin/total protein by electrophoresisOrdered By: Celina Lee on 03-07-2022 Alpha 1 globulin Elph (U) [Mass fraction] 4.9 % . [facility] Urine alpha 2 globulin/total protein ratio by electrophoresisOrdered By: Celina Lee on 03-07-2022 Alpha 2 globulin Elph (U) [Mass fraction] 12.4 % . [facility] Urine beta globulin measurem ent by electrophoresis (mass/volume)Ordered By: Celina Lee on 03-07-2022 Beta globulin Elph (U) [Mass/Vol] 32.2 % . [facility] Bacterial blood cultureOrder ed By: Troy Mcgraw on 01-23-2022 Bacteria identified Cx Nom (Bld) NO GROWTH 5 DAYS [facility] Basophils Auto (Bld) [#/Vol] Ordered By: Yoav Hsu on 01-21-2022 Basophils (Bld) [#/Vol] 0.0 10*3/uL 0.0-0.2 [facility] Basophils/100 WBC Auto (Bld) Ordered By: Yoav Hsu on 01-21-2022 Basophils/100 WBC (Bld) 0.5 % . [facility] Blood hemoglobin measurement (mass/volume)Ordered By: Yoav Hsu on 01-21-2022 Hemoglobin (Bld) [Mass/Vol] 8.7 g/dL 11.8-15.4 [facility] Blood leukocytes automated c ount (number/volume)Ordered By: Yoav Hsu on 01-21-2022 WBC (Bld) [#/Vol] 5.4 10*3/uL 4.5-11.0 [facility] CT biopsyOrdered By: Yoav gottlieb on 01-21-2022 Transferrin [Mass/Vol] 171 mg/dL 180-380 [facility] Creatinine and Glomerular fi ltration rate.predicted panel (S/P/Bld)Ordered By: Yoav Hsu on 01-21-2022 Creatinine [Mass/Vol] 1.19 mg/dL 0.44-1.03 [facility] Eosinophils Auto (Bld) [#/Vo l]Ordered By: Yoav Hsu on 01-21-2022 Eosinophils (Bld) [#/Vol] 0.2 10*3/uL 0.0-0.45 [facility] Eosinophils/100 WBC Auto (Bl d)Ordered By: Yoav Hsu on 01-21-2022 Eosinophils/100 WBC (Bld) 3.3 % . [facility] Erythrocyte distribution wid th Auto (RBC) [Ratio]Ordered By: Yoav Hsu on 01-21-2022 Erythrocyte distribution width (RBC) [Ratio] 12.3 % 11.9-15.3 [facility] Estimated glomerular filtrat ion rate (GFR) non- AmericanOrdered By: Yoav Hsu on 01-21-2022 GFR/1.73 sq M.predicted among non-blacks MDRD (S/P/Bld) [Vol rate/Area] 43 mL/Min [facility] Ferritin [Mass/volume] in Se rum or PlasmaOrdered By: Yoav Hsu on 01-21-2022 Ferritin [Mass/Vol] 257.6 ng/mL 11-306.8 [facility] Folate [Mass/volume] in Seru m or PlasmaOrdered By: Yoav Hsu on 01-21-2022 Folate [Mass/Vol] 15.5 ng/mL >5.9 [facility] Comment on above: Folate reference ran ge: >5.9 ng/ml The WHO technical consultation on folate and vitamin b12 deficiencies has determined that folate concentrations less than 4 ng/ml are considered deficient. Hematocrit Auto (Bld) [Volum e fraction]Ordered By: Yoav Hsu on 01-21-2022 Hematocrit (Bld) [Volume fraction] 24.5 % 34.0-46.4 [facility] Iron [Mass/volume] in Serum or PlasmaOrdered By: Yoav Hsu on 01-21-2022 Iron [Mass/Vol] 55 ug/dL 40-150 [facility] Iron binding capacity [Mass/ volume] in Serum or PlasmaOrdered By: Yoav Hsu on 01-21-2022 Iron binding capacity [Mass/Vol] 239 ug/dL 255-450 [facility] Iron saturation [Mass Fracti on] in Serum or PlasmaOrdered By: Yoav Hsu on 01-21-2022 Iron saturation [Mass fraction] 23.0 % 20-50 [facility] Laboratory - Chemistry and C hemistry - challengeOrdered By: Yoav Hsu on 01-21-2022 Cobalamin (Vitamin B12) [Mass/Vol] 387 pg/mL 180-914 [facility] - Hematology and Cell countsOrdered By: Yoav Hsu on 01-21-2022 Nucleated RBC/100 WBC (Bld) [Ratio] 0.0 % 0-0.5 [facility] Lymphocytes Auto (Bld) [#/Vo l]Ordered By: Yoav Hsu on 01-21-2022 Lymphocytes (Bld) [#/Vol] 1.2 10*3/uL 1.00-4.8 [facility] Lymphocytes/100 WBC Auto (Bl d)Ordered By: Yoav Hsu on 01-21-2022 Lymphocytes/100 WBC (Bld) 21.4 % . [facility] MCH Auto (RBC) [Entitic mass ]Ordered By: Yoav Hsu on 01-21-2022 MCH (RBC) [Entitic mass] 33.0 pg 24.7-34.3 [facility] MCHC Auto (RBC) [Mass/Vol]Or dered By: Yoav Hsu on 01-21-2022 MCHC (RBC) [Mass/Vol] 35.7 g/dL 32.0-35.0 [facility] MCV Auto (RBC) [Entitic vol] Ordered By: Yoav Hsu on 01-21-2022 MCV (RBC) [Entitic vol] 92.2 fL 80-100 [facility] Monocytes Auto (Bld) [#/Vol] Ordered By: Yoav Hsu on 01-21-2022 Monocytes (Bld) [#/Vol] 0.4 10*3/uL 0.0-0.8 [facility] Monocytes/100 WBC Auto (Bld) Ordered By: Yoav Hsu on 01-21-2022 Monocytes/100 WBC (Bld) 8.3 % . [facility] Neutrophils Auto (Bld) [#/Vo l]Ordered By: Yoav Hsu on 01-21-2022 Neutrophils (Bld) [#/Vol] 3.6 10*3/uL 1.8-7.7 [facility] Neutrophils/100 WBC Auto (Bl d)Ordered By: Yoav Hsu on 01-21-2022 Neutrophils/100 WBC (Bld) 66.5 % . [facility] No Panel InformationOrdered By: Yoav Hsu on 01-21-2022 Estimated GFR () 52 mL/Min [facility] Comment on above: GFR estimated refere nce range: According to KDOQI guidelines, <60 ml/min/1.73m2 is sufficient to diagnose a patient with chronic kidney disease. Pharmacy Creatinine Clearance (Chem 29.91 [facility] Platelet mean volume Auto (B ld) [Entitic vol]Ordered By: Yoav Hsu on 01-21-2022 Platelet mean volume (Bld) [Entitic vol] 9.2 fL 6.3-10.7 [facility] Platelets Auto (Bld) [#/Vol] Ordered By: Yoav Hus on 01-21-2022 Platelets (Bld) [#/Vol] 153 10*3/uL 150-450 [facility] RBC Auto (Bld) [#/Vol]Ordere d By: Yoav Hsu on 01-21-2022 RBC (Bld) [#/Vol] 2.65 10*6/uL 3.60-5.00 [facility] Serum or plasma calcium clif urement (mass/volume)Ordered By: Yoav Hsu on 01-21-2022 Calcium [Mass/Vol] 8.8 mg/dL 8.2-10.2 [facility] Serum or plasma chloride víctor surement (moles/volume)Ordered By: Yoav Hsu on 01-21-2022 Chloride [Moles/Vol] 108 mmol/L 95-114 [facility] Serum or plasma glucose clif urement (mass/volume)Ordered By: Yoav Hsu on 01-21-2022 Glucose [Mass/Vol] 81 mg/dL 70-100 [facility] Comment on above: ADA recommended refe rence range Random Glucose Reference Range is dependent on time and content of last meal. Glucose of more than 200 mg/dL in a nonstressed, ambulatory subject supports the diagnosis of Diabetes Mellitus. Serum or plasma potassium me asurement (moles/volume)Ordered By: Yoav Hsu on 01-21-2022 Potassium [Moles/Vol] 3.6 mmol/L 3.5-5.1 [facility] Serum or plasma sodium measu rement (moles/volume)Ordered By: Yoav Hsu on 01-21-2022 Sodium [Moles/Vol] 139 mmol/L 136-146 [facility] Serum or plasma total carbon dioxide measurement (moles/volume)Ordered By: Yoav Hsu on 01-21-2022 CO2 [Moles/Vol] 24.1 mmol/L 22.0-30.0 [facility] Serum or plasma urea nitroge n measurement (mass/volume)Ordered By: Yoav Hsu on 01-21-2022 Urea nitrogen [Mass/Vol] 13 mg/dL 9- [facility] Urine culture routineOrdered By: Cristino Eid on 01-21-2022 Bacteria identified Cx Nom (U) No Growth 2 Days [facility] Automated erythrocytes count in urine sediment (number/area)Ordered By: Cristino Eid on 01-19-2022 RBC Auto (Urine sed) [#/Area] 0-1 [HPF] 0-4 [facility] Automated leukocytes count i n urine sediment (number/area)Ordered By: Cristino Eid on 01-19-2022 WBC Auto (Urine sed) [#/Area] 5-9 [HPF] 0-4 [facility] Bilirubin Test strip Ql (U)O rdered By: Cristino Eid on 01-19-2022 Bilirubin Ql (U) Negative Negative [facility] Color Auto (U)Ordered By: Azalia Eid on 01-19-2022 Color (U) Yellow Yellow [facility] Creatinine [Mass/volume] in UrineOrdered By: Cristino Eid on 01-19-2022 Creatinine (U) [Mass/Vol] 67.7 mg/dL [facility] Comment on above: No reference range e stablished Eosinophils detection in uri ne sediment by Cook stainOrdered By: Cristino Eid on 01-19-2022 Eosinophils Cook stain Ql (Urine sed) 0 % 0-1 [facility] Ketones Auto test strip (U) [Mass/Vol]Ordered By: Cristino Eid on 01-19-2022 Ketones (U) [Mass/Vol] Negative Negative [facility] - UrinalysisOrder ed By: Cristino Eid on 01-19-2022 Hyaline casts LM Ql (Urine sed) 0-8 [LPF] 0-8 [facility] Nitrite Test strip Ql (U)Ord ered By: Cristino Eid on 01-19-2022 Nitrite Ql (U) Negative Negative [facility] Protein Auto test strip (U) [Mass/Vol]Ordered By: Cristino Eid on 01-19-2022 Protein (U) [Mass/Vol] Negative Negative [facility] Specific gravity Auto test s trip (U) [Rel density]Ordered By: Cristino Eid on 01-19-2022 Specific gravity (U) [Rel density] 1.011 1.001-1.03 0 [facility] Squamous epithelial cells de tection in urine sediment by light microscopyOrdered By: Cristino Eid on 01-19-2022 Epithelial cells.squamous LM Ql (Urine sed) 3-4 [HPF] 0-2 [facility] Urine bacteria detection by automated methodOrdered By: Cristino Eid on 01-19-2022 Bacteria Auto Ql (U) None seen None Seen [facility] Urine clarity by refractomet ry automatedOrdered By: Cristino Eid on 01-19-2022 Clarity Refractometry automated (U) Clear Clear [facility] Urine glucose measurement by automated test strip (mass/volume)Ordered By: Cristino Eid on 01-19-2022 Glucose Auto test strip (U) [Mass/Vol] Normal mg/dL Normal [facility] Urine hemoglobin detection b y automated test stripOrdered By: Cristino Eid on 01-19-2022 Hemoglobin Auto test strip Ql (U) Negative Negative [facility] Urine leukocyte esterase det ection by automated test stripOrdered By: Cristino Ridermike on 01-19-2022 Leukocyte esterase Auto test strip Ql (U) 2+ Negative [facility] Urine sodium measurement (mo les/volume)Ordered By: Jackietammy Adrymike on 01-19-2022 Sodium (U) [Moles/Vol] 35.0 mmol/L [facility] Comment on above: No reference range e stablished Urobilinogen Auto test strip (U) [Mass/Vol]Ordered By: Jackietammy Adrymike on 01-19-2022 Urobilinogen (U) [Mass/Vol] Normal mg/dL Normal [facility] pH Auto test strip (U)Ordere d By: Cristino Adrymike on 01-19-2022 pH (U) 5.5 [pH] 5.0-9.0 [facility] Erythrocyte sedimentation ra te by Photometric methodOrdered By: Rico Recinos on 01-18-2022 ESR Photometric method (Bld) [Velocity] 4 mm/hr 0-29 [facility] Laboratory - Chemistry and C hemistry - challengeOrdered By: Rico Recinos on 01-18-2022 Magnesium [Mass/Vol] 2.1 mg/dL 1.6-2.6 [facility] No Panel InformationOrdered By: Troy Mcgraw on 01-18-2022 SARS Antigen (LFIA) [facility] Serum or plasma C reactive p rotein measurement (mass/volume)Ordered By: Rico Recinos on 01-18-2022 CRP [Mass/Vol] 0.5 mg/dL 0.0-1.0 [facility] COVID-19 Positive/NegativeOr dered By: Troy Mcgraw on 01-17-2022 SARS-CoV-2 (COVID-19) N gene JC+probe Ql (Resp) Negative Negative [facility] Comment on above: Testing for SARS-CoV -2 by RT-PCR This test was developed and its performance characteristics determined by [employer] and validated at the [facility]. This test has not been FDA [...] (COVID-19) Ag IA.rapid Ql (Resp) Negative Negative [facility] Comment on above: This is a duplicate Elizabeth SARS Antigen (JOSEFINA) result to be used for statistical tracking purpose only. Laboratory - Microbiology an d Antimicrobial susceptibilityOrdered By: Troy Mcgraw on 01-17-2022 SARS-CoV-2 (COVID-19) RNA JC+probe Ql (Unsp spec) N/A [facility] XR Foot Complete Right*on XR Foot [...] by CECE FELIX on 01/17/2022 1920 Normal [facility] Amylaseon 10-15-2021 SABINA 24 U/L Low 28-100 [facility] Comment on above: Performed By: #### L IP, SABINA #### [facility] [address] [place], [place] [id number] Lipaseon 10-15-2021 LIP2 12 IU/L Low 13-60 [facility] Comment on above: Performed By: #### L SABINA MARRUFO #### [facility] [address] [place], [place] [id number] Q - CULTURE,URINE,ROUTINEon 10-15-2021 CULTURE, URINE, ROUTINE SEE NOTE Normal N [facility] Comment on above: Order Comment: [facility] performed at: [employer] [email or web address], [address], [address] [place], [address], Speech Pathologist Assistant: Francisco Javier Torres MD [facility] Collection Date/Time: [id number] [facility] Results Received Date/Time: [facility] Reported Date/Time: [id number] Result Comment: CULT URE, URINE, ROUTINE Micro Number: [id number] Test Status: Final Specimen Source: Urine Specimen Quality: Adequate Result: Mixed genital ankit isolated. These superficial bacteria are not indicative of a urinary tract infection. No further organism identification is warranted on this specimen. If clinically indicated, recollect clean-catch, mid-stream urine and transfer immediately to Urine Culture Transport Tube. Performed By: #### [id number] #### [facility] Default [address] [place] [address] Basic Metabolic Panelon 10-01 Anion gap [Moles/Vol] 18 mmol/L Normal 12-20 [facility] Comment on above: Result Comment: Effe ctive 09/05/2019 reference range changed. Performed By: #### B MP #### [facility] [address] [place], [place] [id number] Calcium [Mass/Vol] 10.9 mg/dL High 8.6-10.2 [facility] Comment on above: Performed By: #### B MP #### [facility] [address] [place], [place] [id number] Chloride [Moles/Vol] 100 mmol/L Normal 98-107 [facility] Comment on above: Performed By: #### B MP #### [facility] [address] [place], [place] [id number] CO2 [Moles/Vol] 29 mmol/L Normal 20-31 [facility] Comment on above: Performed By: #### B MP #### [facility] [address] [place], [place] [id number] Creatinine [Mass/Vol] 1.5 mg/dL High 0.6-1.4 [facility] Comment on above: Performed By: #### B MP #### [facility] [address] [place], [place] [id number] eGFRAA 40 mL/min/1.73m2 Low >60 [facility] Comment on above: Performed By: #### B MP #### [facility] [address] [place], [place] [id number] eGFRNAA 33 mL/min/1.73m2 Low >60 [facility] Comment on above: Performed By: #### B MP #### [facility] [address] [place], [place] [id number] Glucose [Mass/Vol] 105 mg/dL High 65-99 [facility] Comment on above: Result Comment: For FASTING Glucose --- ADA reference ranges: Normal 65-99 mg/dl Prediabetes 100-125 Diabetes >/= 126 Performed By: #### B MP #### [facility] [address] [place], [place] [id number] Potassium [Moles/Vol] 3.8 mmol/L Normal 3.5-5.5 [facility] Comment on above: Performed By: #### B MP #### [facility] [address] [place], [place] [id number] Sodium [Moles/Vol] 143 mmol/L Normal 135-146 [facility] Comment on above: Performed By: #### B MP #### [facility] [address] [place], [place] [id number] Urea nitrogen [Mass/Vol] 24 mg/dL Normal 7-25 [facility] Comment on above: Performed By: #### B MP #### [facility] [address] [place], [place] [id number] Complete Blood Counton 09-30 Erythrocyte distribution width (RBC) [Ratio] 11.3 % Normal 11.0-15.0 [facility] Comment on above: Performed By: #### C BC, CMP #### [facility] [address] [place], [place] [id number] Hematocrit (Bld) [Volume fraction] 33.2 % Low 35.0-47.0 [facility] Comment on above: Performed By: #### C BC, CMP #### [facility] [address] [place], [place] [id number] Hemoglobin (Bld) [Mass/Vol] 11.4 g/dL Low 11.6-15.5 [facility] Comment on above: Performed By: #### C BC, CMP #### [facility] [address] [place], [place] [id number] MCH (RBC) [Entitic mass] 30.9 pg Normal 27.0-33.0 [facility] Comment on above: Performed By: #### C BC, CMP #### [facility] [address] [place], [place] [id number] MCHC (RBC) [Mass/Vol] 34.3 g/dL Normal 32.0-36.0 [facility] Comment on above: Performed By: #### C BC, CMP #### [facility] [address] [place], [place] [id number] MCV (RBC) [Entitic vol] 90 fL Normal 80-100 [facility] Comment on above: Performed By: #### C BC, CMP #### [facility] [address] [place], [place] [id number] Platelet mean volume (Bld) [Entitic vol] 12.00 fL Normal 7.50-12.50 [facility] Comment on above: Performed By: #### C BC, CMP #### [facility] [address] [place], [place] [id number] Platelets (Bld) [#/Vol] 224 10*3/uL Normal 140-400 [facility] Comment on above: Performed By: #### C BC, CMP #### [facility] [address] [place], [place] [id number] RBC (Bld) [#/Vol] 3.69 10*6/uL Low 3.90-5.20 [facility] Comment on above: Performed By: #### C BC, CMP #### [facility] [address] [place], [place] [id number] RDW-SD 37.3 fL Normal 37.0-50.0 [facility] Comment on above: Performed By: #### C BC, CMP #### [facility] [address] [place], [place] [id number] WBC (Bld) [#/Vol] 7.0 10*3/uL Normal 3.8-11.0 [facility] Comment on above: Performed By: #### C BC, CMP #### [facility] [address] [facility] [place] [id number] Comprehensive Metabolic Pane ti 09-30-2021 Albumin [Mass/Vol] 4.5 g/dL Normal 3.6-5.1 [facility] Comment on above: Performed By: #### C BC, CMP #### [facility] [address] [place], [place] [id number] Albumin/Globulin [Mass ratio] 2.6 {ratio} High 1.0-2.5 [facility] Comment on above: Performed By: #### C BC, CMP #### [facility] [address] [place], [place] [id number] ALP [Catalytic activity/Vol] 57 U/L Normal 35-119 [facility] Comment on above: Performed By: #### C BC, CMP #### [facility] [address] [place], [place] [id number] ALT [Catalytic activity/Vol] 10 U/L Normal 6-33 [facility] Comment on above: Result Comment: 07/31 Female reference range changed. Performed By: #### C BC, CMP #### [facility] [address] [place], [place] [id number] Anion gap [Moles/Vol] 22 mmol/L High 12-20 [facility] Comment on above: Result Comment: Effe ctive 09/05/2019 reference range changed. Performed By: #### C BC, CMP #### [facility] [address] [facility] [place] [id number] AST [Catalytic activity/Vol] 17 U/L Normal 9-34 [facility] Comment on above: Performed By: #### C BC, CMP #### [facility] [address] [place], [place] [id number] Bilirubin [Mass/Vol] 0.31 mg/dL Normal 0.30-1.20 [facility] Comment on above: Performed By: #### C BC, CMP #### [facility] [address] [place], [place] [id number] BUN/CREA 17 Ratio Normal 6-22 [facility] Comment on above: Performed By: #### C BC, CMP #### [facility] [address] [facility] [id number] Calcium [Mass/Vol] 10.8 mg/dL High 8.6-10.2 [facility] Comment on above: Performed By: #### C BC, CMP #### [facility] [address] [id number] Chloride [Moles/Vol] 99 mmol/L Normal 98-107 [facility] Comment on above: Performed By: #### C BC, CMP #### [facility] [address] [facility] [id number] CO2 [Moles/Vol] 29 mmol/L Normal 20-31 [facility] Comment on above: Performed By: #### C BC, CMP #### [facility] [address] [facility] [id number] Creatinine [Mass/Vol] 2.8 mg/dL High 0.6-1.4 [facility] Comment on above: Performed By: #### C BC, CMP #### [facility] [address] [place], [place] [id number] eGFRAA 19 mL/min/1.73m2 Low >60 [facility] Comment on above: Performed By: #### C BC, CMP #### [facility] [address] [facility] [place] [id number] eGFRNAA 16 mL/min/1.73m2 Low >60 [facility] Comment on above: Performed By: #### C BC, CMP #### [facility] [address] [facility] [id number] Globulin (S) [Mass/Vol] 1.7 g/dL Low 1.9-3.7 [facility] [place] [facility] Comment on above: Performed By: #### C BC, CMP #### [facility] [address] [place], [place] [id number] Glucose [Mass/Vol] 109 mg/dL High 65-99 [facility] [place] [facility] Comment on above: Result Comment: For FASTING Glucose --- ADA reference ranges: Normal 65-99 mg/dl Prediabetes 100-125 Diabetes >/= 126 Performed By: #### C BC, CMP #### [facility] [address] [place], [place] [id number] Potassium [Moles/Vol] 3.2 mmol/L Low 3.5-5.5 [facility] [place] [facility] Comment on above: Performed By: #### C BC, CMP #### [facility] [address] [place], [place] [id number] Protein [Mass/Vol] 6.2 g/dL Normal 6.1-8.1 [facility] [place] [facility] Comment on above: Performed By: #### C BC, CMP #### [facility] [address] [place], [place] [id number] Sodium [Moles/Vol] 146 mmol/L Normal 135-146 [facility] [place] [facility] Comment on above: Performed By: #### C BC, CMP #### [facility] [address] [place], [place] [id number] Urea nitrogen [Mass/Vol] 47 mg/dL High 7-25 [facility] Comment on above: Performed By: #### C BC, CMP #### [facility] [address] [place], [place] [id number] Office Visit (Cardiology)on 06-27-2021 Follow-up visit Diagnoses/Problems Assessed Paroxysmal SVT (supraventricular tachycardia) (427.0) (I47.1) Class 1 obesity with body mass index (BMI) of 30.0 to 30.9 in adult (278.00,V85.30) (E66.9,Z68.30) Orders Class 1 obesity with body mass index (BMI) of 30.0 to 30.9 in adult Healthy Weight Tips; Status:Complete - Retrospective Authorization; Done: [id number] Follow up in 1 year. .fu1 Patient Instructions By signing my name below, I, Roberta Flores Lpn,Emma, attest that this documentation has been prepared [...] scheduled in 1 year Sam Machado MD, [facility] Surgical History Problems History of Cholecystectomy [...] Meloxicam 15 MG Oral Tablet Vitamin D3 [id number] mg daily Allergies Medication Penicillins Hives;; Recorded [...] Recorded: 27Jun2021 09:55AM Heart Rate56, L Radial Zidftwpe236, LUE, Supine Cdvabkfbr02, LUE, Supine Height5 ft 1 in Ktzfju247 lb BMI Kdshxdpatm87.99 kg/m2 BSA Calculated1.74 Tobacco Useb) No Fall [...] and time (more content not included)... Normal [facility] Tobacco Screening.on 021 Fall risk assessment b) One or more fall s in the last year [facility] 250 DO Work Phone: Tobacco use status CP b) No M [facility] 250 DO Work Phone: Vital Signs Date Time Vital Sign Value Performing Clinician Facility 09-29-2024 14:36-0500 Diastolic blood pressure 82 mm[Hg] Hoa Washburn MD Work Phone: [facility] 09-29-2024 14:36-0500 Heart rate 87 /min Hoa Washburn MD Work Phone: [facility] 09-29-2024 14:36-0500 Respiratory rate 22 /min Hoa Washburn MD Work Phone: [facility] 09-29-2024 14:36-0500 SaO2% (BldA) [Mass fraction] 99 % Hoa Washburn MD Work Phone: [facility] 09-29-2024 14:36-0500 Systolic blood pressure 131 mm[Hg] Hoa Washburn MD Work Phone: [facility] 09-28-2024 11:55-0500 Body height 154.9 cm Kadeem Tam MD [facility] Phone[facility] 09-28-2024 11:55-0500 Diastolic blood pressure 62 mm[Hg] Kadeem Tam MD Work Phone: [facility] 09-28-2024 11:55-0500 Heart rate 88 /min Kadeem Tam MD Work Phone: [facility] 09-28-2024 11:55-0500 Systolic blood pressure 137 mm[Hg] Kadeem Tam MD Work Phone: [facility] [employer] [facility] 08-23-2024 09:46-0500 SaO2% (BldA) [Mass fraction] 100 % [facility] Comment on above: Performed By: #### CBCA, PINR, [id number], CMP, [id number], 2777-1 #### [facility] ([id number]) [address], [address] [place] [address] 08-23-2024 06:15-0500 SaO2% (BldA) [Mass fraction] 100 % [facility] Comment on above: Performed By: #### CBCA, PINR, [id number], CMP, [id number], 2777-1 #### [facility] ([id number]) [address], [address] [place] [address] 08-22-2024 11:11-0500 SaO2% (BldA) [Mass fraction] 100 % [facility] Comment on above: Performed By: #### CBCA, PINR, [id number], CMP, [id number], 2777-1 #### [facility] ([id number]) [address], [address] [place] [address] 08-22-2024 04:31-0500 SaO2% (BldA) [Mass fraction] 100 % [facility] Comment on above: Performed By: #### CBCA, PINR, [id number], CMP, 05030-9, 2777-1 #### [facility] ([id number]) [address], [address] [place] [address] 08-21-2024 17:39-0500 SaO2% (BldA) [Mass fraction] 100 % [facility] Comment on above: Performed By: #### ABG #### [facility] ([id number]) [address] [place] [address] 08-21-2024 14:00-0500 SaO2% (BldA) [Mass fraction] 94 % [facility] Comment on above: Performed By: #### ABG #### [facility] ([id number]) [address] [place] [address] 07-14-2024 08:38-0500 Body height 154.94 cm Karen Hill [employer] Work Phone: [facility] 07-14-2024 08:38-0500 Body mass index (BMI) [Ratio] 28.3 kg/m2 Karen Hill [employer] Work Phone: [facility] 07-14-2024 08:38-0500 Body temperature 97 [degF] Karen Hill [employer] Work Phone: [facility] 07-14-2024 08:38-0500 Body weight 68.03 kg Karen Sergio [employer] Work Phone: [facility] 07-14-2024 08:38-0500 Diastolic blood pressure 82 mm[Hg] Karen Hill [employer] Work Phone: [facility] 07-14-2024 08:38-0500 Heart rate 56 /min Karen Hill [employer] Work Phone: [facility] 07-14-2024 08:38-0500 Respiratory rate 18 /min Karen Hill [employer] Work Phone: [facility] 07-14-2024 08:38-0500 SaO2% (BldA) [Mass fraction] 98 % Karen Hill [employer] Work Phone: [facility] 07-14-2024 08:38-0500 Systolic blood pressure 160 mm[Hg] Karen Hill [employer] Work Phone: [facility] 07-20-2023 11:00-0500 Body height 154.94 cm Sakshi Rusty Other [employer] Other 07-20-2023 11:00-0500 Body mass index (BMI) [Ratio] 25.54 kg/m2 Sakshi Rusty Other [employer] Other 07-20-2023 11:00-0500 Body temperature 97.3 [degF] Sakshi Rusty Other [employer] Other 07-20-2023 11:00-0500 Body weight 61.33 kg Sakshi Rusty Other [employer] Other 07-20-2023 11:00-0500 Diastolic blood pressure 75 mm[Hg] Sakhsi Rusty Other [employer] Other 07-20-2023 11:00-0500 Respiratory rate 18 /min Sakshi Rusty Other [employer] Other 07-20-2023 11:00-0500 SaO2% (BldA) [Mass fraction] 98 % Sakshi Rusty Other [employer] Other 07-20-2023 11:00-0500 Systolic blood pressure 117 mm[Hg] Sakshi Rusty Other [employer] Other 06-18-2023 23:50-0400 Diastolic blood pressure 76 mm[Hg] DO Fan Lexi Work Phone: [facility] 06-18-2023 23:50-0400 Heart rate 58 /min DO Fan Lexi Work Phone: [facility] 06-18-2023 23:50-0400 Respiratory rate 24 /min DO Fan Lexi Work Phone: [facility] 06-18-2023 23:50-0400 SaO2% (BldA) [Mass fraction] 97 % DO Fan Lexi Work Phone: [facility] 06-18-2023 23:50-0400 Systolic blood pressure 147 mm[Hg] DO Fan Lexi Work Phone: [facility] 06-18-2023 20:49-0400 Body temperature 98.5 [degF] DO Fan Elliott Work Phone: [facility] 06-18-2023 20:48-0400 Body height 154.94 cm DO Fan Elliott Work Phone: [facility] 06-18-2023 20:48-0400 Body weight 63.5 kg DO Fan Elliott Work Phone: [facility] 11-19-2022 17:40-0400 Diastolic blood pressure 63 mm[Hg] DO Fan Elliott Work Phone: [facility] 11-19-2022 17:40-0400 Heart rate 60 /min DO Fan Elliott Work Phone: [facility] 11-19-2022 17:40-0400 Respiratory rate 16 /min DO Fan Elliott Work Phone: [facility] 11-19-2022 17:40-0400 SaO2% (BldA) [Mass fraction] 99 % DO Fna Elliott Work Phone: [facility] 11-19-2022 17:40-0400 Systolic blood pressure 132 mm[Hg] DO Fan Elliott Work Phone: [facility] 11-19-2022 14:25-0400 Body height 156.21 cm DO Fan Elliott Work Phone: [facility] 11-19-2022 14:25-0400 Body weight 65.1 kg DO Fan Elliott Work Phone: [facility] 11-19-2022 14:24-0400 Body temperature 97.2 [degF] DO Fan Elliott Work Phone: [facility] 07-28-2022 10:20-0500 Body height 154.94 cm Sakshi Ojeda Other [employer] Other 07-28-2022 10:20-0500 Body mass index (BMI) [Ratio] 27.13 kg/m2 Sakshi Rusty Other [employer] Other 07-28-2022 10:20-0500 Body temperature 96.9 [degF] Sakshi Rusty Other [employer] Other 07-28-2022 10:20-0500 Body weight 65.14 kg Sakshi Rusty Other [employer] Other 07-28-2022 10:20-0500 Diastolic blood pressure 80 mm[Hg] Sakshi Rusty Other [employer] Other 07-28-2022 10:20-0500 Respiratory rate 18 /min Sakshi Rusty Other [employer] Other 07-28-2022 10:20-0500 Systolic blood pressure 134 mm[Hg] Sakshi Rusty Other [employer] Other 06-26-2022 09:23-0400 Body height 154.94 cm Fan Elliott Work Phone: [facility] [employer] 250 DO Work Phone: 06-26-2022 09:23-0400 Body mass index (BMI) [Ratio] 26.83 kg/m2 Fan Elliott Work Phone: [facility] 250 DO Work Phone: 06-26-2022 09:23-0400 Body surface area Derived from formula 1.63 m2 Fan Elliott Work Phone: [facility] 250 DO Work Phone: 06-26-2022 09:23-0400 Body weight 64.41 kg Fan Elliott Work Phone: [facility] 250 DO Work Phone: 06-26-2022 09:23-0400 Diastolic blood pressure 74 mm[Hg] Fan Elliott Work Phone: [facility] 250 DO Work Phone: 06-26-2022 09:23-0400 Heart rate 72 /min Fan Elliott Work Phone: [facility] 250 DO Work Phone: 06-26-2022 09:23-0400 Systolic blood pressure 138 mm[Hg] Fan Elliott Work Phone: [facility] 250 DO Work Phone: 06-19-2022 15:03-0400 Body weight 65.9 kg DO Fan Elliott Work Phone: [facility] 06-19-2022 15:03-0400 Diastolic blood pressure 68 mm[Hg] DO Fan Elliott Work Phone: [facility] 06-19-2022 15:03-0400 Heart rate 68 /min DO Fan Lexi Work Phone: [facility] 06-19-2022 15:03-0400 Respiratory rate 20 /min DO Fan Lexi Work Phone: [facility] 06-19-2022 15:03-0400 SaO2% (BldA) [Mass fraction] 99 % DO Fan Lexi Work Phone: [facility] 06-19-2022 15:03-0400 Systolic blood pressure 128 mm[Hg] DO Fan Elliott Work Phone: [facility] 03-20-2022 14:16-0400 Body temperature 97.8 [degF] DO Fan Elliott Work Phone: [facility] 03-20-2022 14:16-0400 Body weight 68.94 kg DO Fan Elliott Work Phone: [facility] 03-20-2022 14:16-0400 Diastolic blood pressure 84 mm[Hg] DO Fan Elliott Work Phone: [facility] 03-20-2022 14:16-0400 Heart rate 81 /min DO Fan Elliott Work Phone: [facility] 03-20-2022 14:16-0400 Respiratory rate 16 /min DO Fan Elliott Work Phone: [facility] 03-20-2022 14:16-0400 SaO2% (BldA) [Mass fraction] 97 % DO Fan Elliott Work Phone: [facility] 03-20-2022 14:16-0400 Systolic blood pressure 133 mm[Hg] DO Fan Elliott Work Phone: [facility] 03-06-2022 11:04-0400 Body height 154.94 cm DO Fan Elliott Work Phone: [facility] 02-19-2022 14:15-0400 Body height 154.94 cm Peterson Mejia Other [employer] Other 02-19-2022 14:15-0400 Body mass index (BMI) [Ratio] 28.15 kg/m2 Peterson Mejia Other [employer] Other 02-19-2022 14:15-0400 Body temperature 98.1 [degF] Peterson Mejia Other [employer] Other 02-19-2022 14:15-0400 Body weight 67.59 kg Peterson Mejia Other [employer] Other 02-19-2022 14:15-0400 Diastolic blood pressure 66 mm[Hg] Peterson Mejia Other [employer] Other 02-19-2022 14:15-0400 Systolic blood pressure 133 mm[Hg] Peterson Mejia Other [employer] Other 01-21-2022 08:18-0400 Body temperature 98.5 [degF] DO Fan Elliott Work Phone: [facility] 01-21-2022 08:18-0400 Diastolic blood pressure 64 mm[Hg] DO Fan Elliott Work Phone: [facility] 01-21-2022 08:18-0400 Heart rate 101 /min DO Fan Elliott Work Phone: [facility] 01-21-2022 08:18-0400 Respiratory rate 16 /min DO Fan Elliott Work Phone: [facility] 01-21-2022 08:18-0400 SaO2% (BldA) [Mass fraction] 98 % DO Fan Elliott Work Phone: [facility] 01-21-2022 08:18-0400 Systolic blood pressure 124 mm[Hg] DO Fan Elliott Work Phone: [facility] 01-21-2022 06:00-0400 Body weight 67.9 kg DO Fan Elliott Work Phone: [facility] 01-20-2022 12:36-0400 Body height 154.94 cm DO Fan Elliott Work Phone: [facility] 01-18-2022 01:39-0400 Body mass index (BMI) [Ratio] 29 kg/m2 DO Fan Elliott Work Phone: [facility] 12-03-2021 15:15-0400 Body height 154.94 cm Echo Guillen Other [employer] [facility] [employer] Other 12-03-2021 15:15-0400 Body mass index (BMI) [Ratio] 29.47 kg/m2 Echo Guillen Other [employer] [facility] [employer] Other 12-03-2021 15:15-0400 Body weight 70.76 kg Echo Guillen Other [employer] Other 12-03-2021 15:15-0400 Diastolic blood pressure 69 mm[Hg] Echo Guillen Other [employer] Other 12-03-2021 15:15-0400 Systolic blood pressure 122 mm[Hg] Echo Guillen Other [employer] Other 06-27-2021 09:55-0400 Body height 154.94 cm Fan Elliott Work Phone: [facility] 250 DO Work Phone: 06-27-2021 09:55-0400 Body mass index (BMI) [Ratio] 30.99 kg/m2 Fan Elliott Work Phone: [facility] 250 DO Work Phone: 06-27-2021 09:55-0400 Body surface area Derived from formula 1.74 m2 Fan Elliott Work Phone: [facility] 250 DO Work Phone: 06-27-2021 09:55-0400 Body weight 74.39 kg Fan Elliott Work Phone: [facility] 250 DO Work Phone: 06-27-2021 09:55-0400 Diastolic blood pressure 70 mm[Hg] Fan Elliott Work Phone: [facility] 250 DO Work Phone: 06-27-2021 09:55-0400 Heart rate 56 /min Fan Elliott Work Phone: [facility] 250 DO Work Phone: 06-27-2021 09:55-0400 Systolic blood pressure 110 mm[Hg] Fan Elliott Work Phone: [facility] 250 DO Work Phone: Encounters Encounter Date Encounter Type Care Provider Facility Start: 10-17-2024 End: 10-17-2024 ambulatory KAREN HILL [facility] Start: 10-13-2024 End: 10-13-2024 Emergency department patient visit KAREN Hong [facility] Start: 10-11-2024 End: 10-11-2024 Telephone encounter Rosio [facility] Comment on above: CTAP Oral Contrast Start: 10-11-2024 End: 10-11-2024 ambulatory KADEEM TAM [facility] Start: 10-07-2024 End: 10-07-2024 ambulatory KAREN HILL [facility] Start: 10-05-2024 End: 10-05-2024 ambulatory KAREN HILL [facility] Start: 10-04-2024 End: 10-05-2024 Telephone encounter Rosio [facility] Comment on above: Follow up CTAP Start: 10-02-2024 ambulatory KAREN Hong [facility] Start: 09-29-2024 End: 10-03-2024 Telephone encounter Rosio Mult[facility] Comment on above: CTAP Follow up Start: 09-28-2024 End: 09-28-2024 Postop follow up visit related to original px Kadeem Tam MD Work Phone: [facility] Comment on above: S/P colectomy (Prima ry Dx) Start: 09-28-2024 End: 09-28-2024 ambulatory KADEEM TAM [facility] Start: 09-16-2024 End: 09-16-2024 ambulatory JOHN WALDEN [facility] Start: 09-15-2024 End: 09-15-2024 Telephone encounter Leyda [facility] Start: 09-09-2024 End: 10-03-2024 Subsequent hospital visit by physician Hoa Washburn MD Work Phone: [facility] Start: 08-21-2024 End: 09-09-2024 Evaluation and management of inpatient BLANE Hilario [facility] Start: 08-21-2024 ambulatory KAREN HILL [facility] Start: 08-18-2024 End: 08-18-2024 Telephone encounter Ifeoma Meade CCC-A Work Phone: [facility] Start: 08-16-2024 End: 08-16-2024 ambulatory [facility] Start: 08-16-2024 End: 08-16-2024 ambulatory [facility] Start: 08-10-2024 End: 08-10-2024 Bamboo flowsheet Peewee [...] Available Start: 08-04-2024 End: 08-04-2024 Telephone encounter Karen Hill [employer] Work Phone: [facility] Start: 07-20-2024 End: 07-20-2024 Bamboo flowsheet Peewee MARIE Work Phone: [facility] Start: 07-20-2024 End: 07-20-2024 Bamboo flowsheet Peewee MARIE Work Phone: [facility] Start: 07-20-2024 End: 07-20-2024 Office outpatient visit 25 minutes Peewee MARIE Work Phone: [facility] Comment on above: Left hip pain (Prima ry Dx); Trochanteric bursitis of left hip; Lumbar back pain with radiculopathy affecting left lower extremity Start: 07-20-2024 End: 07-20-2024 ambulatory PEEWEE GRESHAM Not Available Start: 07-14-2024 End: 07-14-2024 ambulatory Karen Hill [employer]-C Work Phone: [facility] Work Phone: Start: 07-14-2024 End: 07-14-2024 Patient encounter procedure Karen Hill [employer]-C Work Phone: [facility] [place] Work Phone: Start: 07-05-2024 End: 07-05-2024 Patient encounter procedure [employer]-Gely Hill Work Phone: [facility] C[facility] Start: 07-05-2024 End: 07-05-2024 ambulatory [employer]-C Karen Hill Work Phone: [facility] Work Phone: Start: 06-13-2024 End: 07-10-2024 Refill Karen Hill [employer] Work Phone: [facility] Comment on above: Vitamin D deficiency (Primary Dx) Start: 05-27-2024 End: 05-27-2024 Telephone encounter Karen Hill [employer] Work Phone: [facility] Start: 04-28-2024 End: 04-29-2024 Emergency department patient visit CHARLOTTE BARNEY [facility] Start: 04-28-2024 End: 04-28-2024 Emergency department patient visit YARELIS RODRIGUEZ [facility] Start: 04-19-2024 End: 04-19-2024 Bamboo flowsheet Ifeoma Meade CCC-A Work Phone: [facility] Start: 04-19-2024 End: 04-19-2024 Bamboo flowsheet Ifeoma Meade CCC-A Work Phone: [facility] Start: 04-19-2024 End: 04-19-2024 Clinical Support Ifeoma Meade CCC-A Work Phone: [facility] Comment on above: Sensorineural hearin g [...] Start: 11-24-2023 End: 11-24-2023 ambulatory PEEWEE GRESHAM [facility] Start: 11-10-2023 End: 11-10-2023 ambulatory PEEWEE Demario [facility] Not Available Start: 11-04-2023 End: 11-04-2023 ambulatory GRANT JANE Not Available Start: 10-27-2023 Orders Only Fan Elliott DO Work Phone: [facility] Comment on above: Other specified abno rmal findings of blood chemistry Start: 10-27-2023 End: 10-27-2023 ambulatory FAN ELLIOTT [facility] Start: 07-20-2023 End: 07-20-2023 ambulatory Sakshi Rusty Other [employer] Other Start: 07-20-2023 Office outpatient vi sit 25 minutes Sakshi Rusty [facility] Start: 07-14-2023 End: 07-14-2023 ambulatory DO Fan Elliott Work Phone: [facility] Work Phone: Start: 07-14-2023 End: 07-14-2023 Patient encounter procedure DO Fan Elliott Work Phone: [facility] Start: 07-07-2023 End: 07-07-2023 ambulatory [facility] Amb[facility] Start: 06-18-2023 End: 06-19-2023 Emergency department patient visit DO Fan Elliott Work Phone: [facility] Ctr-Emergency Room Work Phone: Start: 01-27-2023 End: 01-27-2023 ambulatory DO Fan Elliott Work Phone: [facility] Work Phone: Start: 01-27-2023 End: 01-27-2023 Patient encounter procedure DO Fan Elliott Work Phone: [facility] Start: 12-08-2022 End: 12-08-2022 ambulatory DO Fan Elliott Work Phone: [facility] Work Phone: Start: 12-08-2022 End: 12-08-2022 Patient encounter procedure DO Fan Elliott Work Phone: [facility] Start: 11-19-2022 End: 11-19-2022 Emergency department patient visit DO Fan Elliott Work Phone: [facility]-Emergency Room Work Phone: Start: 07-31-2022 End: 07-31-2022 ambulatory DO Fan Elliott Work Phone: [facility] Work Phone: Start: 07-31-2022 End: 07-31-2022 Patient encounter procedure DO Fan Merloser Work Phone: [facility] Start: 07-28-2022 End: 07-28-2022 ambulatory Sakshi Ojeda Other [employer] Other Start: 07-28-2022 Office outpatient ne w 45 minutes Sakshi Ojeda [facility] Start: 07-03-2022 End: 07-03-2022 ambulatory DO Fan Elliott Work Phone: [facility] Work Phone: Start: 07-03-2022 End: 07-03-2022 Registered Recurring DO Fan Elliott Work Phone: [facility] Start: 06-26-2022 Office outpatient vi sit 25 minutes Fan Elliott Work Phone: [facility] 250 DO Work Phone: Start: 06-26-2022 Registered Recurring DO Fan bradford Work Phone: [facility] Start: 06-26-2022 End: 06-26-[address] Sam Machado Facility: Start: 06-26-2022 End: 06-26-2022 Patient encounter procedure DO Fan Elliott Work Phone: [facility] Start: 06-19-2022 End: 06-19-2022 ambulatory DO Fan Elliott Work Phone: [facility] Work Phone: Start: 06-19-2022 End: 06-19-2022 Registered Recurring DO Fan Elliott Work Phone: [facility] Start: 05-12-2022 End: 05-12-2022 Patient encounter procedure DO Fan Elliott Work Phone: [facility] [place] Start: 04-29-2022 End: 04-29-2022 ambulatory Cece Anguiano II Other [facility] [employer] Other Start: 04-29-2022 Telephone encounter Cece Anguiano II [facility] Start: 04-10-2022 End: 04-10-2022 Patient encounter procedure DO Fan Elliott Work Phone: [facility] Start: 04-09-2022 End: 04-09-2022 ambulatory Cece Silvio II Other [employer] Other Start: 04-09-2022 Office outpatient ne w 45 minutes Cece Bent II [facility] [place] [facility] Start: 04-09-2022 End: 04-09-2022 Patient encounter procedure DO Fan Elliott Work Phone: [facility] [place] [facility] Start: 03-20-2022 End: 03-20-2022 Registered Recurring DO Fan Merloser Work Phone: [facility] Start: 02-19-2022 End: 02-19-2022 ambulatory Peterson Mejia Other [employer] Other Start: 02-19-2022 Office outpatient vi sit 25 minutes Peterson Mejia [facility] Start: 01-21-2022 End: 01-21-2022 ambulatory Peewee Mondragon Other [employer] Other Start: 01-21-2022 Telephone encounter Peewee dotson [facility] Start: 01-18-2022 End: 01-21-2022 Evaluation and management of inpatient DO Fan Elliott Work Phone: [facility] [place] [facility] Start: 12-03-2021 End: 12-03-2021 ambulatory Echo Guillen Other [employer] Other Start: 12-03-2021 Office outpatient ne w 30 minutes Echo Guillen [facility] Start: 06-27-2021 Office outpatient vi sit 25 minutes Fan Elliott Work Phone: [facility] 250 DO Work Phone: Start: 06-27-[address] Sam Machado Facility: Start: 11-03-2018 Patient encounter procedure SAM MACHADO Facility:[id number] Procedures Date Procedure Procedure Detail Performing Clinician Start: 10-03-2024 Comprehensive metabolic panel Hoa Washburn MD Work Phone: Start: 09-30-2024 Basic metabolic panel calcium total Hoa Washburn MD Work Phone: Start: 09-29-2024 Fluoroscopy up to 1 hour physician/qhp time Kailash Chin MD Work Phone: Start: 09-29-2024 End: 09-29-2024 Prothrombin time Hoa Washburn MD Work Phone: Start: 09-28-2024 Follow-up visit Follow-up KADEEM TAM Start: 09-28-2024 Basic metabolic panel calcium total Hoa Washburn MD Work Phone: Start: 09-26-2024 Comprehensive metabolic panel Hoa Washburn MD Work Phone: Start: 09-23-2024 Basic metabolic panel calcium total Hoa Washburn MD Work Phone: Start: 09-22-2024 Blood count complete auto&auto difrntl wbc Hoa Washburn MD Work Phone: Start: 09-21-2024 Radiologic exam chest single view Ada Cook TRANSACTION MANAGER - [employer] Work Phone: Start: 09-21-2024 Basic metabolic panel calcium total Hoa Washburn MD Work Phone: Start: 09-19-2024 Comprehensive metabolic panel Hoa Washburn MD Work Phone: Start: 09-18-2024 Natriuretic peptide Hoa Washburn MD Work Phone: Start: 09-17-2024 Ct thorax w/o contrast material Ada Cook TRANSACTION MANAGER - [employer] Work Phone: Start: 09-17-2024 Assay of troponin quantitative Hoa Washburn MD Work Phone: Start: 09-16-2024 Creatine kinase total Hoa womack MD Work Phone: Start: 09-16-2024 Basic metabolic panel calcium total Kailash Chin MD Work Phone: Start: 09-15-2024 Blood count complete auto&auto difrntl wbc Hoa Washburn MD Work Phone: Start: 09-14-2024 Basic metabolic panel calcium total Hoa Washburn MD Work Phone: Start: 09-12-2024 End: 09-12-2024 Comprehensive metabolic panel Hoa Washburn MD Work Phone: Start: 09-10-2024 Comprehensive metabolic panel Hoa Washburn MD Work Phone: Start: 08-21-2024 Adult depression screening assessment Leyda Marroquin Start: 07-20-2024 Arthrocentesis aspir&/inj major jt/bursa w/o us Peewee MARIE Work Phone: Start: 06-18-2023 CT angiography of head DO Fan Elliott Work Phone: Start: 06-18-2023 CT angiography of neck vessels DO Fan bradford Work Phone: Start: 06-18-2023 CT of head without contrast DO Fan hughes Work Phone: Start: 06-18-2023 Plain chest X-ray DO Fan Elliott Work Phone: Start: 12-31-2022 History of operative procedure on knee History of bilateral knee replacement Ifeoma Meade [facility] Work Phone: Start: 11-19-2022 Computed tomography of [...] Fan Elliott Work Phone: Total colonoscopy Fan Fuentes fidelia Work Phone: Urine culture DO Fan Elliott Work Phone: Plan of Treatment Date Care Activity Detail Author Start: 01-21-2028 DTaP,Tdap and Td Vaccines (2 - Td or Tdap) DTaP,Tdap and Td Vaccines (2 - Td or Tdap) [facility] Start: 01-21-2028 DTaP/Tdap/Td vaccine (2 - Td or Tdap) DTaP/Tdap/Td vaccine (2 - Td or Tdap) [facility] Start: 10-11-2025 Tobacco Screening Tobacco Screening [facility] Start: 09-28-2025 Tobacco Screening Tobacco Screening [facility] Start: 08-21-2025 Depression Screening Depression Scre ening [facility] Start: 08-21-2025 Tobacco Screening Tobacco Screening [facility] Start: 10-19-2024 End: 10-19-2024 Patient encounter procedure 10/19/2024 10:15 AM EST Office Visit [facility] [address] [place] [phone] Brennon Vera MD [address] [place] [address] [facility] Start: 10-11-2024 End: 10-11-2024 Patient encounter procedure 10/11/2024 9:30 AM EST Appointment [facility] - CT Imaging [address] [place] [id number] [facility] - CT Imaging Start: 09-28-2024 End: 09-28-2025 CT Abdomen and Pelvis W contrast IV CT abdomen and pelvis with contrast Imaging Routine S/P colectomy Expected: 09/28/2024, Expires: 09/28/2025 [place] Work Phone: Comment on above: Expected: 09/28/2024 , Expires: 09/28/2025 Start: 09-16-2024 Subsequent hospital visit by physician 09/16/2024 Hospital Encounter [facility] - Pain Procedures [address] [place] [phone] John Walden MD [address] [place], [place] [id number] [facility] - [facility] Procedures Start: 08-10-2024 End: 08-10-2024 Patient encounter procedure [facility] Comment on above: Left hip pain (Prima ry Dx); Trochanteric bursitis of left hip; Lumbar back pain with radiculopathy affecting left lower extremity Start: 07-20-2024 End: 07-20-2024 Patient encounter procedure 07/20/2024 1:45 PM EST Office Visit [facility] [address] [place] [id number] Peewee Gresham PA [address] [facility] [address] [place] [address] Low back pain, unspecified back pain laterality, unspecified chronicity, unspecified whether sciatica present (Primary Dx) [facility] Comment on above: Low back pain, unspe cified back pain laterality, unspecified chronicity, unspecified whether sciatica present (Primary Dx) Start: 07-14-2024 [facility] Start: 05-23-2024 End: 05-23-2024 Clinical Support 05/23/2024 11:15 AM EDT Clinical Support [facility] [address] [place] [id number] Ifeoma Meade, CCC-A [address] [place] [address] [facility] Start: 05-01-2024 Influenza vaccination [facility] Start: 04-19-2024 End: 04-19-2024 Clinical Support 04/19/2024 9:00 AM EDT Clinical Support [facility] [address] [place] [id number] Ifeoma Meade, [facility] [address] [place] [address] [facility] Comment on above: Arrived Start: 10-27-2023 End: 10-27-2023 Patient encounter procedure 10/27/2023 8:30 AM EST Appointment [facility] - Lab [address] [place] [phone] [facility] Start: 10-23-2023 End: 10-27-2024 Thyroxine (T4) free [Mass/volume] in Serum or Plasma T4, free Lab Routine Other specified abnormal findings of blood chemistry Expected: 10/23/2023, Expires: 10/27/2024 [facility] Work Phone: Comment on above: Expected: 10/23/2023 , Expires: 10/27/2024 Start: 07-07-2023 FUV, Provider: Sam Machado, Status: Pen, Time: 9:30 AM FUV, Provider: Sam Machado, Status: Pen, Time: 9:30 AM [facility] 250 DO Work Phone: Start: 06-18-2023 CT angiography of head [facility] Start: 06-18-2023 CT angiography of ne ck vessels [facility] Start: 06-18-2023 CT of head without contrast CT head/brain wo con [facility] Start: 06-18-2023 CT Unspecified body region WO contrast [facility] Start: 06-18-2023 Plain chest X-ray XR chest 1V portab le [facility] Start: 06-18-2023 XR Chest Single view [facility] Start: 06-26-2022 FUV, Provider: Sam Machado, Status: Pen, Time: 9:30 AM -[facility] 250 DO Work Phone: Start: 01-21-2022 [facility] Work Phone: Start: 01-18-2022 Referral to vascular surgeon [facility] Work Phone: Start: 01-18-2022 Referral to infectio us diseases physician [facility] Work Phone: Start: 01-18-2022 Hospital admission [facility] Work Phone: Start: 01-18-2022 Referral to pension manager [facility] Work Phone: Start: 2000 Fall Risk Screening Fall Risk Screen [facility] Start: 1947 Depression Screen Depression Screen [facility] Comprehensive metabolic 1999 panel - Serum or Plasma [facility] Work Phone: Comprehensive metabolic 1999 panel - Serum or Plasma [facility] Comprehensive metabolic 1999 panel - Serum or Plasma [facility] End: 09-29-2024 CT Abdomen and Pelvis WO contrast CT ABDOMEN PELVIS WO CONTRAST Imaging Routine Once for 1 Occurrences starting 09/29/2024 until 09/29/2024 [facility] Work Phone: Comment on above: Once for 1 Occurrenc es starting 09/29/2024 until 09/29/2024 Injection aa&/strd other peripheral nerve/branch INJECTION BLOCK NERVE Other specified mononeuropathies of left lower limb [place] [facility] Patient Education [facility] Work Phone: Patient referral [facility] Work Phone: Renal function 2000 panel - Serum or Plasma [facility] Immunizations Immunization Date Immunization Notes Care Provider Fa cility 05-23-2024 Covid-19, Subunit, Rs-nanoparticle, Adjuvanted, Pf, 5 Mcgl [facility] 04-19-2024 Seasonal trivalent influenza vaccine, adjuvanted, preservative free [facility] 04-19-2024 influenza virus vacc ine, unspecified formulation [facility] 06-29-2023 Covid-19,mrna, Lnp-s , Pf, 50mcg/0.5ml 12+ [facility] 06-29-2023 RSV, recombinant, protein subunit RSVpreF, adjuvant reconstituted, 0.5 mL, PF [facility] 05-25-2023 Influenza, Seasonal, Quadrivalent, Adjuvanted [facility] Work Phone: [facility] 05-25-2023 influenza virus vacc ine, unspecified formulation [facility] Work Phone: [facility] 05-16-2022 Influenza, Seasonal, Quadrivalent, Adjuvanted [facility] Work [facility]: [facility] 05-16-2022 SARS-CoV-2, Unspecified [facility] Work [facility]: [facility] 01-10-2022 Covid-19, Mrna, Lnp- s, Pf, 30 Mcg/0.3 Ml Dose, Ac-sucrose [facility] 07-01-2021 influenza, injectabl e, quadrivalent, contains preservative [facility] Work Phone: [facility] 06-27-2021 Pfizer Purple Cap SARS-CoV-2 Vaccination [facility] Work Phone: [facility] 06-07-2021 Influenza, High-dose Seasonal, Quadrivalent, Preservative Free [facility] Work Phone: [facility] 06-03-2021 tuberculin skin test ; purified protein derivative solution, intradermal [facility] Work Phone: [facility] 05-27-2021 tuberculin skin test ; purified protein derivative solution, intradermal [facility] Work Phone: [facility] 10-04-2020 Pfizer-BioNTech COVI D-19 Vacc 30 MCG/0.3ML Intramuscular Suspension Fan Elliott Work Phone: [facility] 09-13-2020 Pfizer-BioNTech COVI D-19 Vacc 30 MCG/0.3ML Intramuscular Suspension Fan Elliott Work Phone: [facility] 05-17-2020 Seasonal trivalent influenza vaccine, adjuvanted, preservative free Fan Elliott Work Phone: [place] [address] DO Work Phone: 05-17-2020 Seasonal, quadrivale nt, recombinant, injectable influenza vaccine, preservative free [facility] Work Phone: [facility] 06-13-2019 influenza, high dose seasonal, preservative-free Fan Elliott Work Phone: [place] [address] DO Work Phone: 06-07-2019 influenza, injectabl e, madin adrian canine kidney, preservative free Fan Elliott Work Phone: [facility] 250 DO Work Phone: 06-01-2018 influenza, injectabl e, quadrivalent, contains preservative Fan Elliott Work Phone: [facility] 250 DO Work Phone: 06-01-2018 influenza, injectabl e, quadrivalent, preservative free Ifeoma Meade [facility] Work Phone: [facility] 05-22-2018 influenza, injectabl e, quadrivalent, preservative free Leyda Marroquin [facility] 05-22-2018 zoster vaccine recombinant Fan Elliott Work Phone: [facility] 02-15-2018 zoster vaccine recombinant Fan Elliott Work Phone: [facility] 01-20-2018 tetanus toxoid, redu sandra diphtheria toxoid, and acellular pertussis vaccine, adsorbed Fan Elliott Work Phone: [facility] 09-07-2017 tetanus toxoid, redu sandra diphtheria toxoid, and acellular pertussis vaccine, adsorbed DO Fan Elliott Work Phone: [facility] 06-08-2017 seasonal influenza, intradermal, preservative free Ifeoma Meade [facility] Work Phone: [facility] 06-05-2017 influenza, high dose seasonal, preservative-free Fan Elliott Work Phone: [facility] [employer] DO Work Phone: 05-30-2017 influenza virus vacc ine, unspecified formulation Fan Elliott [facility] Work Phone: 03-17-2017 pneumococcal conjuga te vaccine, 13 valent Fan Elliott Work Phone: [facility] 06-19-2016 influenza, high dose seasonal, preservative-free Fan Elliott [facility] Work Phone: 06-19-2016 novel influenza-H1N1 -09, preservative-free, injectable Leyda Marroquin [facility] 06-02-2016 influenza, injectabl e, quadrivalent, contains preservative Fan Elliott Work Phone: [facility] DO Work Phone: 06-02-2016 influenza, injectabl e, quadrivalent, preservative free [facility] Work Phone: [facility] 05-23-2016 pneumococcal conjuga te vaccine, 13 valent Fan Elliott Work Phone: [place] [address] DO Work Phone: 05-01-2016 influenza virus vacc ine, unspecified formulation Fan Elliott Work Phone: [place] [address] DO Work Phone: 06-22-2015 influenza virus vacc ine, unspecified formulation Fan Elliott Work Phone: [place] [address] DO Work Phone: 06-22-2015 influenza, high dose seasonal, preservative-free Fan Elliott Work Phone: [place] [address] DO Work Phone: 05-31-2014 influenza virus vacc ine, split virus (incl. purified surface antigen) [facility] Work Phone: [facility] 05-31-2014 influenza virus vacc ine, unspecified formulation Fan Elliott Work Phone: [place] [address] DO Work Phone: 05-31-2014 influenza, high dose seasonal, preservative-free [facility] 10-17-2013 tuberculin skin test ; purified protein derivative solution, intradermal [facility] Work Phone: [facility] 10-07-2013 tuberculin skin test ; purified protein derivative solution, intradermal [facility] Work Phone: [facility] 05-03-2013 influenza virus vacc ine, unspecified formulation Fan Elliott Work Phone: [place] [address] DO Work Phone: 05-03-2013 influenza, high dose seasonal, preservative-free Leydajessie Marroquin [facility] 05-01-2012 influenza virus vacc ine, unspecified formulation Leydajessie Marroquin [facility] 08-31-2011 zoster vaccine, live Ifeoma Meade [facility] Work Phone: [facility] 07-01-2011 influenza virus vacc ine, unspecified formulation Fan Elliott Work Phone: [place] [address] DO Work Phone: 07-01-2011 influenza, high dose seasonal, preservative-free Leydajesise Marroquin [facility] 07-01-2011 influenza, seasonal, injectable Leydajessie Marroquin [facility] 06-11-2011 zoster vaccine, live Fan Elliott Work Phone: [place] [address] DO Work Phone: 05-01-2010 influenza virus vacc ine, unspecified formulation [facility] 09-20-2009 influenza virus vacc ine, unspecified formulation [facility] 09-20-2009 novel influenza-H1N1 -09, preservative-free, injectable Fan Elliott Work Phone: [place] [address] DO Work Phone: 08-31-2009 pneumococcal polysaccharide vaccine, 23 valent Ifeomajorge DupontVC[facility] Work Phone: [facility] 08-31-2008 pneumococcal polysaccharide vaccine, 23 valent Fan Elliott Work Phone: [place] [address] DO Work Phone: 06-07-2008 seasonal influenza, intradermal, preservative free Ifeoma Renuka [facility] Work Phone: [facility] 06-29-2000 pneumococcal polysaccharide vaccine, 23 valent Ifeoma Renuka [facility] Work Phone: [facility] influenza virus vacc ine, unspecified formulation Fan Elliott Work Phone: [facility] 250 DO Work Phone: Comment on above: 2011 2009 2008 Payers Date Payer Category Payer Self-pay [id number] 2021 Medicaid [id number] 2021 Medicaid [id number] 2000 Medicare [id number] 2000 Medicare [id number] 2.1 [id number] 1935 Unknown [id number] 2.16.8 40.1.073107.3.579.2.355 1935 Unknown [id number] 2.16.840.1.405251.3.579.2.356 1935 Unknown [id number] 2.16.840.1.470477.3.579.2.356 1935 Unknown [id number] 2.16.840.1.429392.3.579.2.1244 1935 Unknown [id number] 2.16.84 0.1.681961.3.579.2.1259 1935 Unknown [id number] 2.16.84 0.1.059081.3.579.2.1259 1935 Unknown [id number] 2.16.84 0.1.883691.3.579.2.1259 1935 Unknown [id number] 2.16.84 0.1.013417.3.579.2.1259 1935 Unknown [id number] 2.16.84 0.1.143723.3.579.2.1259 1935 Unknown [id number] 2.16.84 0.1.449617.3.579.2.1259 1935 Unknown [id number] 2.16.84 0.1.157715.3.579.2.1258 1935 Unknown [id number] 2.16.84 0.1.321457.3.579.2.1258 1935 Unknown [id number] 2.16.84 0.1.151308.3.579.2.1258 1935 Unknown [id number] 2.16.84 0.1.461328.3.579.2.1258 1935 Unknown [id number] 2.16.84 0.1.879789.3.579.2.1258 1935 Unknown [id number] 2.16840.1.559988.3.579.2.1285 1935 Unknown [id number] 2.0.1.164361.3.579.2.1285 1935 Unknown [id number] 2.840.1.036962.3.579.2.1285 1935 Unknown [id number] 2.0.1.157511.3.579.2.1285 1935 Unknown [id number] 2.840.1.438671.3.579.2.1285 1935 Unknown [id number] 2.840.1.948827.3.579.2.1285 1935 Unknown [id number] 2.840.1.811937.3.579.2.1285 1935 Unknown [id number] 2.840.1.317343.3.579.2.1285 1935 Unknown [id number] 2.16840.1.103503.3.579.2.1285 1935 Unknown [id number] 2.840.1.513051.3.579.2.1285 1935 Unknown [id number] 2.16.840.1.699956.3.579.2.1286 1935 Unknown [id number] 2.16.840.1.535467.3.579.2.1286 1935 Unknown [id number] 2.16.840.1.976426.3.579.2.1286 1935 Unknown [id number] 2.16.840.1.252293.3.579.2.1286 1935 Unknown [id number] 2.16.840.1.630326.3.579.2.128 1935 Unknown [id number] 2.16.840.1.751552.3.579.2.128 1935 Unknown [id number] 2.16.840.1.499521.3.579.2.128 1935 Unknown [id number] 2.16.840.1.674642.3.579.2.1286 Medicare [id number] Unknown Unknown [facility] [id number] Unknown [id number] 2.16.8 40.1.031494.3.579.2.531 Unknown [id number] 2.16.8 40.1.807262.3.579.2.531 Social History Date Type Detail Facility Start: 10-23-2023 End: 08-21-2024 Former smoker Former smoker [facility] 250 DO Work Phone: Start: 10-23-2023 End: 08-21-2024 Sex Assigned At [facility] Other Start: 03-06-2022 End: 03-07-2024 Tobacco smoking status [facility] Ex-smoker (finding) [facility] Start: 1935 Sex Assigned At Female [facility] Start: 06-18-2023 End: 08-16-2024 Tobacco smoking status DCIS Never smoked tobacco (finding) [facility] End: 01-01-1994 History of tobacco use Current smoker [facility] End: 01-01-1994 History of tobacco use Cigarette Smoker [facility] Start: 03-07-2024 End: 08-16-2024 Tobacco use and exposure Smokeless tobacco non-user [facility] Start: 03-14-2024 End: 10-11-2024 Alcoholic beverage intake Lifetime non-drinker (finding) [facility] Within the last year, have you been afraid of your partner or ex-partner? No [facility] Are you now , , , , never or living with a partner? [facility] How often to you have a drink containing alcohol? Never [facility] [...] Caffeine: 1-2 cups of coffee in am. [facility] Start: 02-18-2023 Gender identity Identifies as female gender (finding) [facility] Start: 10-27-2023 End: 07-14-2024 Sex Female (finding) [facility] Start: 1935 Sex assigned at Not on file [facility] Tobacco smoking status DCIS Tobacco smoking consumption unknown [facility] NEGATED: Highlighted rowStart: NINF History of tobacco use Passive smoker [facility] Goals Date Patient Goal Desired Activity /State Personal health goal Comment on above: Formatting of this n ote might be different from the original. Evaluation of progress towards goal: Progressing towards safe transition from hospital Functional Status Date Assessment Result Facility 01-21-2022 Functional status Patient at [facility] Work Phone: Mental Status Date Assessment Result Facility 01-21-2022 Cognitive function Cognitive Sta tus Patient at [facility] Work Phone: Clinical Notes 12-03-2021 to 10-11-2024 Telephone Encounter - Rosio Cornejo CNA - 10/11/2024 12:25 PM ESTTelephone Encounter - Rosio Cornejo CNA - 10/11/2024 12:25 PM ESTTelephone Encounter - Rosio Cornejo CNA - 10/04/2024 10:12 AM EST Note Date & Type Note Facility 10-11-2024 Miscellaneous Notes [facility] called on behalf of Ana, she is unable to do the oral contrast for her CT Abd/Pelv. I spoke to Dr. Tam, and he said that it is fine to do only IV contrast. documented in this encounter [facility] 10-11-2024 Telephone encounter Note [facility] called on behalf of Ana, she is unable to do the oral contrast for her CT Abd/Pelv. I spoke to Dr. Tam, and he said that it is fine to do only IV contrast. 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 [facility] never completed the CT, although saying that she was scheduled... I called to get an update, and found Ana was discharged to a SNF in [place]. Called [facility], spoke to her snowboarder Mini, and she is going to call [facility] to get her scheduled for the CTAP in [place]. Ana is following up in clinic with Dr. Vera on 10/19/2024. [facility] CT Abd/Pelv scheduled for 10/11/2024. 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 [facility] never completed the CT, although saying that she was scheduled... I called to get an update, and found Ana was discharged to a SNF in [place]. Called [facility], spoke to her snowboarder Mini, and she is going to call [facility] to get her scheduled for the CTAP in [place]. Ana is following up in clinic with Dr. Vera on 10/19/2024. [facility] 10-04-[address] Abd/Pelv scheduled for 10/11/2024. [employer] 09-29-2024 Miscellaneous Notes Called [facility] [place] on behalf of Ana, to obtain a date of scheduling for her CTAP discussed at her appointment. Spoke to a PCT who will relay the message to her nurse Xuan, and they will be giving us a call with a date. Once given a date I will place a reminder to review with Dr. Tam. Last seen 09/28/2024: Assessment/Plan Patient's labs from this facility were reviewed. White blood cell count was normal. She does have some signs of dehydration. This is improving I would like to get a CT scan of the abdomen and pelvis to rule out any ongoing infectious issues that might be causing her to have poor p.o. intake. I believe her colostomy may preclude the ability to place a PEG tube in the left upper quadrant. The CT scan will help me assess this [facility] Called [facility] requesting an update. Ana will be receiving her CT either tonight or the morning... I asked the house calls nurse, to please send the report and images to our PACS system. She said she would make the request, but she is unsure how long it would take... [facility] called to schedule a consult for peg placement. Ana is scheduled to see 10/19/24 at the [place] office. Called [facility] to obtain the CT Abd/Pelv imaging, spoke to Iza who stated that she had a fluoroscopy study completed, and she will be sending over images and report. I asked if she was scheduled for a CT Abd/Pelv. She is currently not. documented in this encounter [employer] 09-29-2024 Telephone encounter Note Called [facility] on behalf of Ana, to obtain a date of scheduling for her CTAP discussed at her appointment. Spoke to a PCT who will relay the message to her nurse Xuan, and they will be giving us a call with a date. Once given a date I will place a reminder to review with Dr. Tam. Last seen 09/28/2024: Assessment/Plan Patient's labs from this facility were reviewed. White blood cell count was normal. She does have some signs of dehydration. This is improving I would like to get a CT scan of the abdomen and pelvis to rule out any ongoing infectious issues that might be causing her to have poor p.o. intake. I believe her colostomy may preclude the ability to place a PEG tube in the left upper quadrant. The CT scan will help me assess this [facility] [employer] 09-29-2024 Telephone encounter Note Called [facility] requesting an update. Ana will be receiving her CT either tonight or the morning... I asked the house calls nurse, to please send the report and images to our PACS system. She said she would make the request, but she is unsure how long it would take... [employer] 09-29-2024 Telephone encounter Note [facility] called to schedule a consult for peg placement. Ana is scheduled to see 10/19/24 at the [place] office. [employer] 09-29-2024 Telephone encounter Note Called [facility] to obtain the CT Abd/Pelv imaging, spoke to Iza who stated that she had a fluoroscopy study completed, and she will be sending over images and report. I asked if she was scheduled for a CT Abd/Pelv. She is currently not. [employer] 09-28-2024 History of Present illness Narrative Subjective Patient ID: Ana Edwards is a 89 y.o. female. HPI patient recently treated at [facility] as an inpatient for perforated diverticulitis. She underwent exploratory laparotomy with sigmoid colectomy and end-colostomy. She has a Baltazar-Cho drain in place. She currently is staying at an LTAC. She was referred back to us for possible PEG tube Review of Systems Patient reportedly has some nausea and poor p.o. intake Objective Physical Exam Her abdomen is soft. She has a midline wound that is being partially packed with half-inch gauze packing. She has a colostomy in the left mid abdomen that is functioning well Assessment/Plan Patient's labs from this facility were reviewed. White blood cell count was normal. She does have some signs of dehydration. This is improving I would like to get a CT scan of the abdomen and pelvis to rule out any ongoing infectious issues that might be causing her to have poor p.o. intake. I believe her colostomy may preclude the ability to place a PEG tube in the left upper quadrant. The CT scan will help me assess this [facility] 09-15-2024 Miscellaneous Notes Analia from [facility] [place] called and left a message on our VM saying that she wanted to make an appointment for Ana. I tried to call back the number that was given and the number was out of service. I even looked up the number for [facility] on-line and it was the same number that was left on our VM. documented in this encounter [facility] [employer] [facility] 09-15-2024 Telephone encounter Note Analia from [facility] [place] called and left a message on our VM saying that she wanted to make an appointment for Ana. I tried to call back the number that was given and the number was out of service. I even looked up the number for [facility] on-line and it was the same number that was left on our VM. [facility] Telephone encounter Note Pt has been [...] Will need appointment for hearing aid fitting [facility] Work Phone: 08-18-2024 Miscellaneous Notes Pt has [...] hearing aid fitting documented in this encounter [facility] 08-10-2024 History of Present illness Narrative Images from the original note were not included. HISTORY OF PRESENT ILLNESS: EST PT Ana Edwards is an 89 y.o. @ female. 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..] requiring urgent evaluation. documented in this encounter [facility] 08-04-2024 Telephone encounter Note Requested Prescriptions Signed Prescriptions Disp Refills traMADol (Ultram) 50 MG tablet 120 tablet 0 Sig: Take 1 tablet (50 mg) by mouth every 6 (six) hours if needed for severe pain Authorizing Provider: KAREN HILL patient. [facility] 08-04-2024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
[2024-10-23 11:51] LABS: Hematocrit 24.1 % (36.0-48.0); Hemoglobin 7.5 g/dL (12.0-16.0); Mean Corpuscular HGB Conc 31.1 g/dL (29.9-35.2); Mean Corpuscular Hemoglobin 29.4 pg (26.7-34.0); Mean Corpuscular Volume 94.5 fL (81.0-99.0); Mean Platelet Volume 12.9 fL (9.5-13.5); Platelet Count 85 10^3/uL (150-450); Red Blood Count 2.55 10^6/uL (4.20-5.40); Red Cell Distribution Width 13.4 % (11.0-15.0); White Blood Count 7.5 10^3/uL (4.0-11.0)
[2024-10-23 12:05] LABS: Anion Gap 8.1; Calcium 8.9 mg/dL (8.5-10.1); Carbon Dioxide 28.6 mmol/L (21.0-32.0); Chloride 103 mmol/L (98-107); Estimated GFR (African America >60 (>=60 mL/min/1.73m^2); Estimated GFR (Non-African Ame 53 (>=60 mL/min/1.73m^2); Glucose 146 mg/dL (74-106); Potassium 3.7 mmol/L (3.5-5.1); Sodium 136 mmol/L (136-145)
[2024-10-23 12:46] LABS: Lymphocytes Absolute Manual 0.67 10^3/uL (1.20-3.80); Monocytes Absolute Manual 0.22 10^3/uL (0.30-0.80)
== END 2024-10-23 11:35 | disposition home or self-care (01) ==
LOC: LAB 11:34
PROVIDERS: PCP Nurse Practitioner Family; Visit Provider Student in an Organized Health Care Education/Training Program
DX: R50.9 Fever, unspecified (principal)
CPT/HCPCS: 36415; 80048; 85007; 85027